=== PATIENT | male | born 1945 | race Caucasian/White ===

== ENCOUNTER → 2017-12-28 09:56 | Outpatient (CLI) | payer MEDICARE, SELFPAY ==
--- NOTE | 2017-12-28 09:56 | DT_ITS ---
This patient was seen during an EMR downtime December 26, 2017 - January 02, 2018. This patient may have a combination of paper and electronic documentation or all paper documentation. All documentation is viewable within the e-chart portion of [facility] for each patient visit.
[2018-01-02 12:35] LABS: AST(SGOT) 25 U/L (15-37); Alanine Aminotransfer ALT/SGPT 30 U/L (16-61); Albumin, Serum 3.6 g/dL (3.2-5.0); Alkaline Phosphatase 53 U/L (45-117); Globulin 4.2 g/dL (2.2-4.2); Protein, Total 7.8 g/dL (6.4-8.2)
[2018-01-02 12:36] LABS: Bilirubin, Direct 0.27 mg/dL (0.00-0.30); Cholesterol 150 mg/dL (200); High Density Lipoprotein 51 mg/dL; Triglycerides 48 mg/dL; Very Low Density Lipoprotein 10 mg/dL (5-40)
== END ==
PROVIDERS: Family Provider Internal Medicine; PCP Internal Medicine; Visit Provider Internal Medicine Cardiovascular Disease
DX: E78.5 Hyperlipidemia, unspecified (principal); Z79.899 Other long term (current) drug therapy
CPT/HCPCS: 80061; 80076

== ENCOUNTER → 2018-03-01 14:56 | Outpatient (CLI) | payer MEDICARE, SELFPAY ==
--- NOTE | 2018-03-01 14:58 | ECHOD_ITS ---
Reason For Study: Afib-Flutter Procedure This was a 2D Doppler, Color Flow transthoracic echocardiogram. Exam performed in department. Left Ventricle Mild concentric left ventricular hypertrophy. The estimated ejection fraction is 65 %. Stage 2 diastolic dysfunction. No regional wall motion abnormalities noted. Right Ventricle Normal size and thickness. Normal systolic function. Atria Normal left atrium. Normal right atrium. Normal atrial septum. Mitral Valve The mitral valve is structurally normal. No prolapse or stenosis seen. Tricuspid Valve Normal tricuspid valve. Trivial tricuspid valve insufficiency. Right ventricular systolic pressure estimated to be 36 mmHg. Aortic Valve Trisinus/trileaflet aortic valve. Mild diffuse aortic valve thickening. Trivial aortic valve insufficiency. Pulmonic Valve Normal pulmonic valve. Great Vessels Normal aortic root. Mild atherosclerosis of the aortic arch. Normal inferior vena cava. Inferior vena cava collapse with sniff. Pericardium/Pleural No pericardial effusion. MMode/2D Measurements & Calculations LVIDd: 4.9 cm IVSd: 1.4 cm Ao root diam: 4.6 cm LVIDs: 3.2 cm LVPWd: 1.4 cm LA dimension: 4.5 cm FS: 34.1 % LAV(MOD-sp4): 44.8 ml LVAd ap4: 43.5 cm2 SV(MOD-sp4): 95.1 ml EDV(MOD-sp4): 172.8 ml EDV(sp4-el): 175.4 ml LVAs ap4: 25.6 cm2 ESV(MOD-sp4): 77.6 ml ESV(sp4-el): 78.2 ml EF(MOD-sp4): 55.1 % EF(sp4-el): 55.4 % SV(sp4-el): 97.2 ml LA A4 area: 18.8 cm2 RA A4 area: 20.0 cm2 Time Measurements MV dec time: 0.23 sec Doppler Measurements & Calculations MV E max hong: 90.1 cm/sec Lat Peak E' Hong: 10.4 cm/sec Med Peak E' Hong: 8.8 cm/sec MV A max hong: 74.2 cm/sec E/E' lat: 8.7 E/E' med: 10.2 MV E/A: 1.2 MV V2 max: 104.0 cm/sec MV P1/2t max hong: 103.0 cm/sec Ao V2 max: 152.2 cm/sec MV max P.3 mmHg MV P1/2t: 136.3 msec Ao max P.3 mmHg MV V2 mean: 52.3 cm/sec MV dec slope: 221.5 cm/sec2 Ao V2 mean: 90.6 cm/sec MV mean P.3 mmHg MVA(P1/2t): 1.6 cm2 Ao mean P.1 mmHg MV V2 VTI: 43.9 cm Ao V2 VTI: 30.8 cm LV V1 max: 123.9 cm/sec PA V2 max: 99.2 cm/sec TR max hong: 277.8 cm/sec LV V1 max P.1 mmHg TR max P.9 mmHg LV V1 mean P.9 mmHg LV V1 mean: 78.6 cm/sec LV V1 VTI: 27.8 cm Interpretation Summary Mild concentric left ventricular hypertrophy. The estimated ejection fraction is 65 %. Stage 2 diastolic dysfunction. Right ventricular systolic pressure estimated to be 36 mmHg. Trivial aortic valve insufficiency. Compared to echo report dated 07/28/2015, no appreciable changes noted. Aortic root is about the same at 4.6 cm. Pt appears to be in NSR. Ordering Physician: Matt Cates Referring Physician: Matt Cates Performed By: Brayden Holcomb RCS
== END ==
PROVIDERS: Family Provider Internal Medicine; PCP Internal Medicine; Visit Provider Internal Medicine Cardiovascular Disease
DX: Z98.890 Other specified postprocedural states (principal)
CPT/HCPCS: 93306

== ENCOUNTER → 2018-03-02 09:21 | Outpatient (CLI) | payer MEDICARE, SELFPAY ==
--- NOTE | 2018-03-02 09:23 | STE_ITS ---
Reason For Study: Atrial fib/flutter Stress Results Protocol: Modified Kael Stress Echo Maximum Predicted HR: 150 bpm Target HR: 128 bpm% Maximum Predict ed HR: 86 % DurationHeart Rate Stage (mm:ss) (bpm) BPCom ment BASELINE 55 152/90 DILUTED DEFINITY 4 ML USED DURING STRESS MODBRUCE- STAGE 1 3:00 11 0 148/86 MODBRUCE- STAGE 2 3:00 12 0 150/88 MODBRUCE- STAGE 3 1:00 12 9 168/98 RECOVERY 78 140/92 Stress Duration: 7:00 mm:ss Maximum Stress HR: 129 bpm Baseline Echocardiogram Findings The estimated ejection fraction is 65 %. Stress Echo Wall motion Data Resting WMIntermediate WMStress WM Resting Wall Motion Wall Motion Stress No regional wall motion No regional wall motion abnormalities noted. abnormalities noted. EKG Data Normal intervals are noted. At peak exercise, upsloping ST changes only were noted, which did not meet the criteria for ischemia. No clinical angina was noted. Interpretation Summary The estimated ejection fraction is 65 %. Normal, adequate, treadmill echocardiogram. Negative for ischemia by echocardiographic criteria. Pt did have diffuse inferior/lateral ST depression during exercise which resolved into recovery. This was seen previously on stress echo in 2017. No anginal symptoms noted. No arrhythmias noted. Appropriate blood pressure response to exercise. Below average exercise capacity for age. Final LVEF is 75%. Test terminated due to dyspnea and knee pain. No complications. Ordering Physician: Matt Cates Referring Physician: Matt Cates Performed By: Brayden Holcomb RCS
== END ==
PROVIDERS: Family Provider Internal Medicine; PCP Internal Medicine; Visit Provider Internal Medicine Cardiovascular Disease
DX: I48.0 Paroxysmal atrial fibrillation (principal); I25.10 Atherosclerotic heart disease of native coronary artery without angina pectoris; E78.5 Hyperlipidemia, unspecified
CPT/HCPCS: 93017; 93350; Q9957; A4216; C8928

== ENCOUNTER 2018-07-17 10:30 | Outpatient (RCR) | payer MEDICARE, SELFPAY ==
--- NOTE | 2018-06-26 10:58 | HP.PTEVAL_ITS ---
Patient's Visit Information DIMITRIS OCHOA is a 73 year old M referred to Physical Therapy by SHIREEN FUENTES with a diagnosis of Left TKR. Date of Evaluation: 06/26/18 Physical Therapist: Jo Parsons - Visit Plan Frequency: 2x /Week Duration: 4 Weeks Plan: Focus on functional mobility - Subjective Findings: Total Knee Replacement [address] Chew in [place]. Single story home- 3 stairs with a grab bar on them. Had home health therapy and they finished and sent him to outpatient. Pain at the worst: 4-5/10 Agg: weather, squats, night. Eases: ice pack, movement. Best: 08/03. Pain is located around the whole knee joint across the middle of the joint. Achy pain most of the time with sharp pains sometimes. Sleep: wakes him up if he rolls over. Fully I before surgery. Wants to get back to playing golf and being outside gardening. Needs to have the other one done as well- bone on bone. No plan yet. Has not had x-rays since surgery- goes back Jul 04, 2018- Glued together- no maxine- no dressing- No opening of the incision. Not really using and AD at home- This is really the first or second time he has been out. PMhx: HTN, A- fib, Cataract Surgery, thyroid, 5 years ago DVT. Meds: synthroid, warfarin, metroprolol, zetia, asprin - Objective Posture: FH, RS, increased kyphosis. Gait: slightly antalgic- decreased stance on the left with poor heel/toe pattern. Stairs: asc/desc 8 recip with 1 HR and straight cane with decreased control. HR/TR: able with UE A and reports hard to do. SLS: unable without UE A. Palpation: mild tenderness along medial and lateral joint line. ROM: 5-115 degrees. Observation: incision healing well no s/s of infection- mild raised scar. Strength: anle: 5/5, Knee: 4+/5, Hip: 4+/5 Core: fair - Goals Goal 1:: Patient will be I with HEP and progression Goal Time Frame: 4-6 Weeks Goal 2:: Patient will asc/desc 8 stairs recip with no HR Goal Time Frame: 4-6 Weeks Goal 3:: Patient will ambulate >300 feet with a normalized gait pattern no AD Goal Time Frame: 4-6 Weeks Goal 4:: Patient will report ability to perform all ADL's. Goal Time Frame: 4-6 Weeks - Rehabilitation Potential Physical Therapy Diagnosis: Patient presents with hypomobility- she has decreased ROM, strength and muscular endurance s/p left TKR leading to abnormal gait and increased pain with ADL's. Rehabilitation Potential: Good - Anticipated Interventions Patient/Client Instruction: Educate patient on: Benefits of Fitness Program Therapeutic Exercise to Include: Strength training, Endurance training, Balance training, Agility training, Body mechanics, Postural training, Flexibilty training, Gait and locomotor training, Passive ROM, Active ROM, Dynamic Lumbar Stabilization For the Purpose of:: To improve muscle performance and motor function TENS: Yes Cryotherapy (ice pack, ice massage): Yes Thermo therapy (hot pack): Yes Ultrasound (thermal/non thermal): No Thank you for the opportunity to evaluate your patient. For Medicare and Medicare HMO plans, please review the plan of care and approve it. It will need to be FAXED BACK to us at [phone] for Medicare purposes. For Medicare only, by signing this I certify the plan of care. Please let me know if there are questions or concerns regarding this plan of car e. Physician Signature: Date:
--- NOTE | 2018-07-17 11:00 | HP.PTDCSUM ---
HP - PT D/C Summary It has been my pleasure to treat DIMITRIS OCHOA under orders from SHIREEN FUENTES, for the diagnosis of Left TKR for a total of 7 visit(s). Discharge Date: Please see the following information for a summary of their discharge status. - Subjective Subjective: Patient reports that he is doing great- he feels like he is ready to be I - Overall Improvement % Improvement: 100 - Objective Objective/Function: Posture: FH, RS, increased kyphosis. Gait: no deviation Stairs: asc/desc 8 recip with 1 HR. HR/TR: able with UE A. SLS: unable without UE A. Palpation:not tender ROM: 0-115 degrees. Observation: incision healing well no s/s of infection- mild raised scar. Strength: anle: 5/5, Knee: 5/5, Hip: 5/5 Core: fair - Goals Goal 1:: Patient will be I with HEP and progression Goal Progress: Goal Met Goal 2:: Patient will asc/desc 8 stairs recip with no HR Goal Progress: Goal Met Goal 3:: Patient will ambulate >300 feet with a normalized gait pattern no AD Goal Progress: Goal Met Goal 4:: Patient will report ability to perform all ADL's. Goal Progress: Goal Met - Plan Plan: Discharge to I HEP - D/C Information If there are questions or concerns regarding this patient's physical therapy, please feel free to call me at [phone]. Thank you for the referral of this patient. Sincerely, oJ Parsons DPT
--- OUTSIDE RECORDS SUMMARY | 2018-08-19 14:19 | XMS RPT_ITS ---
:1945 Author Organization OHIP Care Team Providers Name Role Phone WILNER CHEW Referring Unavailable WILNER CHEW Admitting Unavailable WILNER CHEW Attending Unavailable RONNIE ISRAEL Consulting Unavailable FARTUN FITZPATRICK Referring Unavailable FARTUN FITZPATRICK Attending Unavailable MIKE PEREZ JR Attending Unavailable MIKE PEREZ JR Referring Unavailable WILNER CHEW Attending Unavailable ANABEL SOLIZ (TOLL TEST WORKER) Attending Unavailable TRESA FITZPATRICKA [place] Referring Unavailable WILNER CHEW Attending Unavailable NANETTE FARTUN [place] Referring Unavailable WILNER CHEW Referring Unavailable WILNER CHEW Referring Unavailable ANABEL SOLIZ (TOLL TEST WORKER) Attending Unavailable TALAMPAS, FARTUN D Referring Unavailable AMOR BUSTOS (LIZZY) Attending Unavailable CHEW, WILNER A Referring Unavailable Matt Cates Attending Unavailable Talampas, Fartun Referring Unavailable Talampas, Fartun Primary Care Unavailable Matt Cates Attending Unavailable Ugo, Matt Referring Unavailable Talampas, Fartun Primary Care Unavailable Matt Cates Attending Unavailable Talampas, Fartun Referring Unavailable Talampas, Fartun Primary Care Unavailable Matt Cates Attending Unavailable Matt Cates Referring Unavailable Talampas, Fartun Primary Care Unavailable Matt Cates Attending Unavailable Ugo, Matt Referring Unavailable Talampas, Fartun Primary Care Unavailable Matt Cates Attending Unavailable Matt Cates Referring Unavailable Matt Cates Attending Unavailable Matt Cates Referring Unavailable DORI VAUGHN Attending Unavailable DORI VAUGHN Referring Unavailable Talampas, Fartun Primary Care Unavailable DORI VAUGHN Consulting Unavailable PROBLEMS PROBLEMS DATE TYPE CONDITION / CODE ATTENDING STATUS SOURCE 06/03/2018 Active Unilateral primary CHEW, Active [place] osteoarthritis, right [facility] Other knee / M17.11(ICD-10) [facility] 06/02/2018 Active Unilateral primary CHEW, Active [place] osteoarthritis, left [facility] Other knee / M17.12(ICD-10) [facility] 05/22/2018 Active Anemia, unspecified / NA Active [facility] D64.9(ICD-10) [facility] Main [facility] 05/22/2018 Active Encounter for other NA Active [facility] preprocedural Clinic Main examination / [facility] Z01.818(ICD-10) Repository 02/21/2018 Unknown E78.5 - Matt Cates Active [facility] Hyperlipidemia, [facility] unspecified / Hospital E78.5(ICD-10) Repository 02/21/2018 Unknown Z98.890 - Other Matt Cates Active [facility] specified Community postprocedural states Hospital / Z98.890(ICD-10) Repository 02/21/2018 Unknown I25.10 - Matt Cates Active [facility] Atherosclerotic heart Community disease of [facility] coronary artery Repository without angina pectoris / I25.10(ICD-10) 02/21/2018 Unknown I48.0 - Paroxysmal Matt Cates Active [facility] atrial fibrillation / Community I48.0(ICD-10) Hospital Repository 01/05/2018 Active Pain in right knee / NA Active [facility] M25.561(ICD-10) Clinic Other [facility] 01/05/2018 Active Pain in left knee / NA Active [facility] M25.562(ICD-10) Clinic Other [facility] 11/15/2017 Active Encounter for NA Active [facility] screening for other Clinic Main disorder / [facility] Z13.89(ICD-10) Repository 08/08/2017 Unknown I10 - Essential Matt Cates Active [facility] (primary) hypertension Community / I10(ICD-10) Hospital Repository 08/08/2017 Unknown I47.1 - Matt Cates Active [facility] Supraventricular Community tachycardia / Hospital I47.1(ICD-10) Repository 08/08/2017 Unknown Z86.711 - Personal Matt Cates Active [facility] history of pulmonary Community embolism / Hospital Z86.711(ICD-10) Repository 08/08/2017 Unknown I71.2 - Thoracic Matt Cates Active [facility] aortic aneurysm, Community without rupture / Hospital I71.2(ICD-10) Repository 08/01/2017 Active Unknown / UNK(Unknown) FARTUN FITZPATRICK Active [facility] Main [facility] 11/05/2015 Active Essential (primary) NA Active [facility] hypertension / Clinic Main I10(ICD-10) [facility] 07/27/2017 Active Other care home NA [facility]ly [facility] (current) drug therapy Clinic Main / Z79.899(ICD-10) [facility] 07/27/2017 Active Hypothyroidism, NA Active [facility] [facility] unspecified / Clinic Main E03.9(ICD-10) [facility] PROCEDURES PROCEDURES No Procedure Records FoundRESULTS RESULTS PROGRESS Observed: 07/04/2018 Status: COMPLETED Source: [facility] 9:38 AM CLINIC OTHER CAMPUS REPOSITORY HNO ID: [id number] Author: BECKY Villagomez (Ct) Service: (none) Author Type: Clinical Deputy City Clerk Type: Progress Notes Filed: 07/04/2018 9:38 AM Note Text: NAME:Dimitris Ochoa DATE: July 04, 2018 CCF#: [id number] Lower Extremity X-Ray(s): Knee, AP / Lat / Merchant Left and Wt. Bearing COMPLETED TECH ID SIGN: ALEJANDRA FREITAS PROGRESS Observed: 07/04/2018 Status: COMPLETED Source: [facility] 9:33 AM CLINIC MAIN CAMPUS REPOSITORY HNO ID: [id number] Author: Amor Bustos (Pa) Service: (none) Author Type: Physician Ciso Type: Progress Notes Filed: 07/04/2018 10:01 AM Note Text: Ortho Knee Follow Up Note Narrative Referring Provider: Wilner Chew MD [address] [address] PCP: Fartun Fitzpatrick MD IMPRESSION/PLAN: 73 year old male s/p Left Total Knee Replacement completed on 06/02/18. IMPRESSION: No complaints or limitations Severe OA right knee PLAN: Continue current conservative treatment. Rest, Ice, Compression, Elevation PRN. Next appointment with Dr. Chew to help set up right TKA Patient Reassurance: Normal post-operative course discussed with patient. Progress appears to be with the normal speed of recovery. Patient reassured and supported. All questions answered. 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 Obesity) (Hcc) Mixed Hyperlipidemia Unspecified Gastritis and Gastroduodenitis Without Mention of Hemorrhage Osteoarthrosis, Unspecified Whether Generalized Or Localized, Other Specified Sites Essential Hypertension Bladder Neck Obstruction H/O: Hematuria Hypothyroidism Umbilical Hernia Without Mention of Obstruction Or Gangrene Paroxysmal Supraventricular Tachycardia (Hcc) 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 Post-operative recovery was complicated by Right knee pain. Patient rates his condition as improving. Does the patient still experience pain? Onset: evening. Location: Bilateral knees. Frequency: intermittently. Pain scale: 3. Pain character: ache. Relieving factors: Rest and Ice. Aggravating factors: Increased activity Post Op discharge patient location: in home. Functional Assessment is as follows: completed home PT and has already started outpatient PT as of this visit. Functional difficulties: Interferes with sleep. Pain Medication: Non-narcotic and None Currently Ambulating with: no ambulation aides EXAM: POST OP KNEE Left Post-Operative Knee Ambulates with a: limp favoring the right. SKIN: Appropriate postop appearance, No evidence of erythema, warmth, discharge or drainage and Incision clean/dry/intact. Range of motion is 5 degrees in extension and 100 degrees of flexion. Extension Lag: < 10 degrees Pain with ROM:No There is Mild effusion. Mal-alignment: No Tender to the palpation of Medial femoral condyle Neurovascular Status: Sensation Intact, Moves foot and ankle up AND down, Moves toes up and down, 2+ dorsalis pedis and negative homans sign Stability:Anterior/Posterior- Yes, stable and Varus/Valgus- Yes, stable Quad strength: improving Imagin. Implants are well aligned. Implants are well fixed. There is no evidence of loosening. Patella is well positioned. Provider: Amor Bustos PA-C Completed by: Amor Bustos PA-C CNOV Observed: 07/04/2018 Status: COMPLETED Source: [facility] 9:30 AM [facility] REPOSITORY Office Visit (ORMDNA) DIMITRIS OCHOA ([id number]) 1945 M Date Time Provider Department 07/04/18 9:30 AM AMOR BUSTOS) TAZ During your visit today, we recorded the following information about you: Anayeli PENA 07/04/2018 9:29 AM Signed Patient presents with: Surgical Followup: left tka Amor Bustos PA-C 07/04/2018 10:01 AM Signed Ortho Knee Follow Up Note Narrative Referring Provider: Wilner Chew MD [address] [id number] PCP: Fartun Fitzpatrick MD IMPRESSION/PLAN: 73 year old male s/p Left Total Knee Replacement completed on 06/02/18. IMPRESSION: No complaints or limitations Severe OA right knee PLAN: Continue current conservative treatment. Rest, Ice, Compression, Elevation PRN. Next appointment with Dr. Chew to help set up right TKA Patient Reassurance: Normal post-operative course discussed with patient. Progress appears to be with the normal speed of recovery. Patient reassured and supported. All questions answered. 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 and Other Lower Urinary Tract Symptoms (Luts) Atrial Fibrillation (Hcc) Obesity, Class Iii, Bmi 40-49.9 (Morbid Obesity) (Hcc) Mixed Hyperlipidemia Unspecified Gastritis and Gastroduodenitis Without Mention of Hemorrhage Osteoarthrosis, Unspecified Whether Generalized Or Localized, Other Specified Sites Essential Hypertension Bladder Neck Obstruction H/O: Hematuria Hypothyroidism Umbilical Hernia Without Mention of Obstruction Or Gangrene Paroxysmal Supraventricular Tachycardia (Hcc) 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 Post-operative recovery was complicated by Right knee pain. Patient rates his condition as improving. Does the patient still experience pain? Onset: evening. Location: Bilateral knees. Frequency: intermittently. Pain scale: 3. Pain character: ache. Relieving factors: Rest and Ice. Aggravating factors: Increased activity Post Op discharge patient location: in home. Functional Assessment is as follows: completed home PT and has already started outpatient PT as of this visit. Functional difficulties: Interferes with sleep. Pain Medication: Non-narcotic and None Currently Ambulating with: no ambulation aides EXAM: POST OP KNEE Left Post-Operative Knee Ambulates with a: limp favoring the right. SKIN: Appropriate postop appearance, No evidence of erythema, warmth, discharge or drainage and Incision clean/dry/intact. Range of motion is 5 degrees in extension and 100 degrees of flexion. Extension Lag: < 10 degrees Pain with ROM:No There is Mild effusion. Mal-alignment: No Tender to the palpation of Medial femoral condyle Neurovascular Status: Sensation Intact, Moves foot and ankle up AND down, Moves toes up and down, 2+ dorsalis pedis and negative homans sign Stability:Anterior/Posterior- Yes, stable and Varus/Valgus- Yes, stable Quad strength: improving Imagin. Implants are well aligned. Implants are well fixed. There is no evidence of loosening. Patella is well positioned. Provider: Amor Bustos PA-C Completed by: Amor Bustos PA-C Referring Provider: WILNER CHEW [[id number]] Allergies As of Date: 07/04/2018 Noted Allergy Reaction LEVAQUIN (LEVOFLOXACIN) 08/24/2013 14 - Other: See Comments Comments: Reports nightmares LIPITOR (ATORVASTATIN) 11/05/2015 17 - Myalgia Comments: stopped by Dr. Cates LOVASTATIN 02/18/2014 14 - Other: See Comments Comments: muscle aches PRAVASTATIN 02/18/2014 14 - Other: See Comments Comments: muscle aches SIMVASTATIN 02/18/2014 14 - Other: See Comments Comments: muscle aches [id number] REDUCTASE INHIBIT*11/05/2015 17 - Myalgia Comments: tried them all CEFTIN (CEFUROXIME) 02/22/2011 6 - Diarrhea Date Reviewed: 07/04/2018 Reviewed by: Amor Bustos (Pa) - Fully Assessed Reason for Visit: Surgical Followup [104] Cmt: left tka Primary Visit Diagnosis:Status post total left knee replacement [Z96.652] Other Visit Diagnosis:Primary osteoarthritis of right knee [M17.11] Prescriptions as of 07/04/2018 Sig: * ADULT ASPIRIN EC LOW STRENGTH* Take one(1) tablet daily. EZETIMIBE 10 MG TABLET Take 1 tablet by mouth once d* HYDROCHLOROTHIAZIDE 25 MG TAB* TAKE ONE-HALF (1/2) TABLET DA* * XALATAN 0.005 % EYE DROPS Take as directed LEVOTHYROXINE 88 MCG TABLET TAKE 1 TABLET ONCE DAILY (ADD* METOPROLOL SUCCINATE ER 25 MG* Take 1 tablet by mouth once d* MOEXIPRIL 15 MG TABLET Take 15 mg by mouth once randall* * KLOR-CON 10 MEQ TABLET,EXTEND* Take one(1) tablet daily. * TAMBOCOR 100 MG TABLET take one (1) tablet twice a d* WARFARIN 5 MG TABLET TAKE 1 TABLET ON TUESDAY AND* HYDROCODONE 5 MG-ACETAMINOPHE* Take 1-2 tablets by mouth alo* More... More... Problem List As Of Date 07/04/2018 Noted Resolved UNCERTAIN BEHAV NEOPL NERV SYS NEC [D43.9] INVALID FOR* More... BPH W URINARY OBS/LUTS [N40.1] INVALID FOR* Atrial Fibrillation [I48.91] INVALID FOR* More... Obesity, Class III, BMI 40-49.9 (morbid obesity*INVALID FOR* Mixed hyperlipidemia [E78.2] INVALID FOR* More... GASTRITIS/DUODEN NOS W/O HEMORRH [K29.70, K29.9*INVALID FOR* More... Routine general medical examination at a health*INVALID FOR*11/11/2014 More... OSTEOARTHROS NOS-OTHER SITE [M19.90] INVALID FOR* Essential hypertension [I10] INVALID FOR* More... Bladder Neck Obstruction [N32.0] INVALID FOR* H/O: Hematuria [Z87.448] INVALID FOR* Hypothyroidism [E03.9] INVALID FOR* Umbilical hernia without mention of obstruction*INVALID FOR* Paroxysmal supraventricular tachycardia [I47.1] INVALID FOR* More... Atherosclerosis of coronary artery of chicken ranch he*INVALID FOR* More... Other pulmonary embolism and infarction [I26.99]INVALID FOR* More... Heel spur [M77.30] INVALID FOR* Hypercholesterolemia [E78.00] INVALID FOR* Imaging abnormality [R93.89] INVALID FOR* Anticoagulated on Coumadin [Z51.81, Z79.01] INVALID FOR* Primary osteoarthritis of left knee [M17.12] INVALID FOR* More... Arthritis of knee [M17.10] INVALID FOR* Obesity, Class II, BMI 35-39.9 [E66.9] INVALID FOR* Visit Notes: >> Anayeli Landaverde CT Tue Jul 04, 2018 9:27 AM Status: Signed Patient presents with: Surgical Followup: left tka Encounter Status:Closed by AMOR BUSTOS PA-C on 07/04/18 XR KNEE 3V AP/LAT/MERCHANT Observed: 07/04/2018 Status: F Source: [facility] 9:10 AM CLINIC OTHER CAMPUS REPOSITORY * * *Final Report* * * DATE OF EXAM: Jul 04 2018 9:10AM [facility] [id number] - XR KNEE 3V AP/LAT/MERCHANT LT / PROCEDURE REASON: M25.562-Left knee pain, unspecified chronicity * * * * Physician Interpretation * * * * EXAMINATION: XR KNEE 3V AP/LAT/MERCHANT LT CLINICAL HISTORY: 1ST P O TKR Left knee pain, unspecified chronicity Technique: XR KNEE 3V AP/LAT/MERCHANT LT -- LEFT knee with 3 views on 3 images Comparison: 01/05/2018 RESULT: Patient is status post left total knee arthroplasty with patellar resurfacing. The orthopedic hardware is intact without radiographic evidence of loosening. No acute fracture. No large left knee joint effusion. There is an enthesophyte at the quadriceps tendon insertion on the patella. Degenerative changes are present in the medial lateral compartments of the right knee, more pronounced laterally. IMPRESSION: Status post left total knee arthroplasty. Cyber Security Engineer: PSCB Transcribe Date/Time: Jul 04 2018 12:48P Dictated by : DANYELLE GUARDADO MD This examination was interpreted and the report reviewed and electronically signed by: DANYELLE GUARDADO MD on Jul 04 2018 12:50PM EST [id number] INITAL EVALUATION (1) Observed: 06/26/2018 Status: F Source: [place] - PT 10:58 AM [facility] REPOSITORY [facility] [address] [place] [address]. [address] [place] [address] Fax REHABILITATION SERVICES INITIAL EVALUATION MR#: [id number] Acct: [id number] Name: DIMITRIS OCHOA Rep #: [id number] : 1945 73 From: Jo Parsons DPT Referring DrWolf: Status: REG RCR Insurance: [facility] SELF PAY INSURANCE Patient's Visit Information DIMITRIS OCHOA is a 73 year old M referred to Physical Therapy by JULIO FUENTES with a diagnosis of Left TKR. Date of Evaluation: 06/26/18 Physical Therapist: Jo Parsons - Visit Plan Frequency: 2x /Week Duration: 4 Weeks Plan: Focus on functional mobility - Subjective Findings: Total Knee Replacement [address] Chew in [place]- Left. Single story home- 3 stairs with a grab bar on them. Had home health therapy and they finished and sent him to outpatient. Pain at the worst: 4-5/10 Agg: weather, squats, night. Eases: ice pack, movement. Best: 1/10. Pain is located around the whole knee joint across the middle of the joint. Achy pain most of the time with sharp pains sometimes. Sleep: wakes him up if he rolls over. Fully I before surgery. Wants to get back to playing golf and being outside gardening. Needs to have the other one done as well- bone on bone. No plan yet. Has not had x-rays since surgery- goes back Jul 04, 2018- Glued together- no maxine- no dressing- No opening of the incision. Not really using and AD at home- This is really the first or second time he has been out. PMhx: HTN, A-fib, Cataract Surgery, thyroid, 5 years ago DVT. Meds: synthroid, warfarin, metroprolol, zetia, asprin - Objective Posture: FH, RS, increased kyphosis. Gait: slightly antalgic- decreased stance on the left with poor heel/toe pattern. Stairs: asc/desc 8 recip with 1 HR and straight cane with decreased control. HR/TR: able with UE A and reports hard to do. SLS: unable without UE A. Palpation: mild tenderness along medial and lateral joint line. ROM: 5-115 degrees. Observation: incision healing well no s/s of infection- mild raised scar. Strength: anle: 5/5, Knee: 4+/5, Hip: 4+/5 Core: fair - Goals Goal 1:: Patient will be I with HEP and progression Goal Time Frame: 4-6 Weeks Goal 2:: Patient will asc/desc 8 stairs recip with no HR Goal Time Frame: 4-6 Weeks Goal 3:: Patient will ambulate >300 feet with a normalized gait pattern no AD Goal Time Frame: 4-6 Weeks Goal 4:: Patient will report ability to perform all ADL's. Goal Time Frame: 4-6 Weeks - Rehabilitation Potential Physical Therapy Diagnosis: Patient presents with hypomobility- she has decreased ROM, strength and muscular endurance s/p left TKR leading to abnormal gait and increased pain with ADL's. Rehabilitation Potential: Good - Anticipated Interventions Patient/Client Instruction: Educate patient on: Benefits of Fitness Program Therapeutic Exercise to Include: Strength training, Endurance training, Balance training, Agility training, Body mechanics, Postural training, Flexibilty training, Gait and locomotor training, Passive ROM, Active ROM, Dynamic Lumbar Stabilization For the Purpose of:: To improve muscle performance and motor function TENS: Yes Cryotherapy (ice pack, ice massage): Yes Thermo therapy (hot pack): Yes Ultrasound (thermal/non thermal): No Thank you for the opportunity to evaluate your patient. For Medicare and Medicare HMO plans, please review the plan of care and approve it. It will need to be FAXED BACK to us at [phone] for Medicare purposes. For Medicare only, by signing this I certify the plan of care. Please let me know if there are questions or concerns regarding this plan of care. Physician Signature: Date: <Electronically signed by Jo Parsons DPT> 06/26/18 1058 CC: Fartun Fitzpatrick MD; JULIO FUENTES ELR Signed OBSOLETE Observed: 06/20/2018 Status: COMPLETED Source: [facility] 12:00 AM CLINIC OTHER CAMPUS REPOSITORY Refill (ME2E) GABRIELADIMITRIS Marcial ([id number]) 1945 M Date Time Provider Department 06/20/18 WILNER CHEW ME2E During your visit today, we recorded the following information about you: Hayes Mars, PSA 06/20/2018 3:02 PM Signed Alvarez is requesting refill of [place]. Is trying to take 2 tab every 5 hours, occasionally taking 2 every 4 if needed. Did try to start taking 1 tab at a time but is afraid with starting outpt PT next week he will stilll need the 2 every 4-5 hours. Plans to case picker Tuesday in our outpt pharmacy any time after 10am. Julio Fuentes APRN.EMERGENCY NURSE 06/20/2018 3:53 PM Signed OAR[facility] reviewed. Patient is taking medication appropriately, will refill rx. Julio Fuentes APRN.EMERGENCY NURSE June 20, 2018 3:53 PM Allergies As of Date: 06/20/2018 Noted Allergy Reaction LEVAQUIN (LEVOFLOXACIN) 08/24/2013 14 - Other: See Comments Comments: Reports nightmares LIPITOR (ATORVASTATIN) 11/05/2015 17 - Myalgia Comments: stopped by Dr. Cates LOVASTATIN 02/18/2014 14 - Other: See Comments Comments: muscle aches PRAVASTATIN 02/18/2014 14 - Other: See Comments Comments: muscle aches SIMVASTATIN 02/18/2014 14 - Other: See Comments Comments: muscle aches [id number] REDUCTASE INHIBIT*11/05/2015 17 - Myalgia Comments: tried them all CEFTIN (CEFUROXIME) 02/22/2011 6 - Diarrhea Date Reviewed: 06/09/2018 Reviewed by: Deidre Leone LPN - Fully Assessed Reason for Visit: Refill Request [94] Visit Diagnosis:Status post left knee replacement [Z96.652] Order(s):Order #: [id number] Prescriptions as of 06/20/2018 Sig: HYDROCODONE 5 MG-ACETAMINOPHE* Take 1-2 tablets by mouth alo* LEVOTHYROXINE 88 MCG TABLET TAKE 1 TABLET ONCE DAILY (ADD* WARFARIN 5 MG TABLET TAKE 1 TABLET ON TUESDAY AND* MOEXIPRIL 15 MG TABLET Take 15 mg by mouth once randall* HYDROCHLOROTHIAZIDE 25 MG TAB* TAKE ONE-HALF (1/2) TABLET DA* METOPROLOL SUCCINATE ER 25 MG* Take 1 tablet by mouth once d* EZETIMIBE 10 MG TABLET Take 1 tablet by mouth once d* * XALATAN 0.005 % EYE DROPS Take as directed * KLOR-CON 10 MEQ TABLET,EXTEND* Take one(1) tablet daily. * ADULT ASPIRIN EC LOW STRENGTH* Take one(1) tablet daily. * TAMBOCOR 100 MG TABLET take one (1) tablet twice a d* More... More... Problem List As Of Date 06/20/2018 Noted Resolved UNCERTAIN BEHAV NEOPL NERV SYS NEC [D43.9] INVALID FOR* More... BPH W URINARY OBS/LUTS [N40.1] INVALID FOR* Atrial Fibrillation [I48.91] INVALID FOR* More... Obesity, Class III, BMI 40-49.9 (morbid obesity*INVALID FOR* Mixed hyperlipidemia [E78.2] INVALID FOR* More... GASTRITIS/DUODEN NOS W/O HEMORRH [K29.70, K29.9*INVALID FOR* More... Routine general medical examination at a health*INVALID FOR*11/11/2014 More... OSTEOARTHROS NOS-OTHER SITE [M19.90] INVALID FOR* Essential hypertension [I10] INVALID FOR* More... Bladder Neck Obstruction [N32.0] INVALID FOR* H/O: Hematuria [Z87.448] INVALID FOR* Hypothyroidism [E03.9] INVALID FOR* Umbilical hernia without mention of obstruction*INVALID FOR* Paroxysmal supraventricular tachycardia [I47.1] INVALID FOR* More... Atherosclerosis of coronary artery of chicken ranch he*INVALID FOR* More... Other pulmonary embolism and infarction [I26.99]INVALID FOR* More... Heel spur [M77.30] INVALID FOR* Hypercholesterolemia [E78.00] INVALID FOR* Imaging abnormality [R93.89] INVALID FOR* Anticoagulated on Coumadin [Z51.81, Z79.01] INVALID FOR* Primary osteoarthritis of left knee [M17.12] INVALID FOR* More... Arthritis of knee [M17.10] INVALID FOR* Obesity, Class II, BMI 35-39.9 [E66.9] INVALID FOR* Prescriptions ordered this encounter Disp Refills Start End HYDROCODONE 5 MG-ACETAMINOPHEN 325 M* 84 t* 0 06/20/2018 06/27/2018 Class: Print RX Cmt: This patient is status post a major orthopedic procedure that is associated with significant pain and has received a prescription for more than 30 morphine equivalents because of the anticipated pain* Route: ORAL Sig: Take 1-2 tablets by mouth every 4 hours as needed for Pain (post op acute pain) for up to 7 days. Earliest Fill Date: 06/20/18 Medications Discontinued During This Encounter HYDROcodone-acetaminophen (NORCO) 5-* 84 t* 0 06/09/2018 06/20/2018 Class: Print RX Cmt: This patient is status post a major orthopedic procedure that is associated with significant pain and has received a prescription for more than 30 morphine equivalents because of the anticipated pain following this procedure in the immediate postoperative period. Route: ORAL Sig: Take 1-2 tablets by mouth every 4 hours as needed for Pain (post op acute pain) for up to 7 days. Disc: Reason for discontinue is not on file. Encounter Status:Closed by JULIO FUENTES on 06/20/18 CNOV Observed: 06/09/2018 Status: COMPLETED Source: [place] 11:00 AM [facility] REPOSITORY Office Visit (INTMWS) DIMITRIS OCHOA ([id number]) 1945 M Date Time Provider Department 06/09/18 11:00 AM ANABEL SOLIZ) INTMWS During your visit today, we recorded the following information about you: Pulse Respiration Blood pressure Weight 72/minute 16/minute 100/72 144.7 kg Anabel Soliz APRN.CNS 06/09/2018 12:46 PM Signed Transitional Care Management Progress Note The patients TCM visit was performed within the 7 days of discharge. Patient's Date of discharge: 06/03/2018 Date of initial coordinator contact after discharge: Discharge diagnosis: total knee replacement, left Medication review completed Yes Anabel Soliz APRN.TOLL TEST WORKER Provider Documentation: In follow-up of hospitalization, Dimitris Ochoa is a 73 year old male with the chief complaint of s/p total knee replacement. I have reviewed the patient?s last hospital course including diagnostic testing performed during this hospitalization, their discharge medications, and my assessment and plan with the patient and any family members present at today?s visit. HPI: Presents today for follow up left total knee replacement 08/02/[address] Chew at [facility]. Maintained anticoagulation with Lovenox and coumadin. Dressing to be removed day 7-10. Provided with pain medication at discharge. Presents feeling improved. Left knee pain is reduced since discharge home. Swelling of left leg about the same as during hospitalization. Walking with walker. No bleeding or drainage at site. Has had less appetite since surgery, reports drinking fluids sufficiently. No constipation. Alternating one and two norco every for hours as needed for pain with good relief. Taking 5 mg coumadin Thurs and Sun, 5 mg all other days,continues on lovenox today along with coumadin, has not yet checked INR today. Has HHC, RN and PT, dressing to come off later today. has follow up with ortho scheduled. PAST MEDICAL HISTORY: Reviewed and updated ALLERGIES: Reviewed and updated MEDICATIONS: Reviewed and updated SOCIAL HISTORY: Reviewed and updated FAMILY HISTORY: Reviewed and updated REVIEW OF SYSTEMS: Review of Systems: GENERAL: No weight loss, malaise or fevers. GI: Negative for abdominal discomfort, blood in stools or black stools, change in bowel habit, heart burn, nausea, vomiting, constipation MUSCULOSKELETAL: Negative for back pain and muscle pain The remainder of the review of systems is negative. All other systems reviewed and negative, other than HPI. Component Latest Ref Rng AND Units 06/03/2018 06/07/2018 Glucose 74 - 99 mg/dL 134 (H) BUN 9 - 24 mg/dL 21 Creatinine 0.73 - 1.22 mg/dL 1.07 Sodium 136 - 144 mmol/L 137 Potassium 3.7 - 5.1 mmol/L 4.2 Chloride 97 - 105 mmol/L 102 CO2 22 - 30 mmol/L 24 Anion Gap 9 - 18 mmol/L 11 Calcium 8.5 - 10.2 mg/dL 9.0 eGFR- >60 eGFR-All Other Races . >60 WBC 3.70 - 11.00 k/uL 11.66 (H) RBC 4.20 - 6.00 m/uL 4.46 Hemoglobin 13.0 - 17.0 g/dL 13.2 Hematocrit 39.0 - 51.0 % 41.4 MCV 80.0 - 100.0 fL 92.8 MCH 26.0 - 34.0 pG 29.6 MCHC 30.5 - 36.0 g/dL 31.9 RDW-CV 11.5 - 15.0 % 14.6 Platelet Count 150 - 400 k/uL 211 MPV 9.0 - 12.7 fL 12.0 INR Home CoaguChek 2.0 - 3.0 2.0 PHYSICAL EXAMINATION BP 100/72 Pulse 72 Resp 16 Wt 319 lb (144.7kg) General appearance: Well appearing, alert, in no acute distress, well-hydrated, well nourished., well appearing, alert, in no acute distress and well-hydrated, well nourished, motor and sensory appear to be normal Lungs: lungs clear to auscultation. No wheezing, rhonchi, rales clear to auscultation no wheezing or rhonchi Heart: RRR without murmur, gallop, or rubs. No ectopy Abdomen: Abdomen soft, non-tender. Bowel sounds normal. No masses, organomegaly Extremities: Edema: present left leg foot to thigh, Negative findings: Pulses: left 2+, No cyanosis, clubbing or edema 1. I have reviewed the patient record including associated test results during the last hospitalization Yes 2. I have reviewed Lab test Yes 3. I have reviewed Radiology test Yes 4. I reviewed assessment/plan with the patient/family member Yes ASSESSMENT/PLAN: 1. S/P TKR (total knee replacement), left - ICD9: V43.65, ICD10: Z96.652 2. Anticoagulated on Coumadin - ICD9: V58.83, V58.61, ICD10: Z51.81, Z79.01 Continue with coumadin dosing unchanged for now, check INR. If remains therapeutic may discontinue lovenox, he will call in with INR this afternoon for further direction Anabel Soliz APRN.TOLL TEST WORKER June 09, 2018 10:55 AM Referring Provider: FARTUN FITZPATRICK [[id number]] Allergies As of Date: 06/09/2018 Noted Allergy Reaction LEVAQUIN (LEVOFLOXACIN) 08/24/2013 14 - Other: See Comments Comments: Reports nightmares LIPITOR (ATORVASTATIN) 11/05/2015 17 - Myalgia Comments: stopped by Dr. Cates LOVASTATIN 02/18/2014 14 - Other: See Comments Comments: muscle aches PRAVASTATIN 02/18/2014 14 - Other: See Comments Comments: muscle aches SIMVASTATIN 02/18/2014 14 - Other: See Comments Comments: muscle aches AUASMES-GMG-XBY REDUCTASE INHIBIT*11/05/2015 17 - Myalgia Comments: tried them all CEFTIN (CEFUROXIME) 02/22/2011 6 - Diarrhea Date Reviewed: 06/09/2018 Reviewed by: Deidre Leone LPN - Fully Assessed Reason for Visit: Hospital F/U [57] Primary Visit Diagnosis:S/P TKR (total knee replacement), left [Z96.652] Other Visit Diagnosis:Anticoagulated on Coumadin [Z51.81, Z79.01] Prescriptions as of 06/09/2018 Sig: HYDROCODONE 5 MG-ACETAMINOPHE* Take 1-2 tablets by mouth alo* ENOXAPARIN 40 MG/0.4 ML SUBCU* Inject 0.4 mL subcutaneously * LEVOTHYROXINE 88 MCG TABLET TAKE 1 TABLET ONCE DAILY (ADD* WARFARIN 5 MG TABLET TAKE 1 TABLET ON TUESDAY AND* MOEXIPRIL 15 MG TABLET Take 15 mg by mouth once randall* HYDROCHLOROTHIAZIDE 25 MG TAB* TAKE ONE-HALF (1/2) TABLET DA* METOPROLOL SUCCINATE ER 25 MG* Take 1 tablet by mouth once d* EZETIMIBE 10 MG TABLET Take 1 tablet by mouth once d* * XALATAN 0.005 % EYE DROPS Take as directed * KLOR-CON 10 MEQ TABLET,EXTEND* Take one(1) tablet daily. * ADULT ASPIRIN EC LOW STRENGTH* Take one(1) tablet daily. * TAMBOCOR 100 MG TABLET take one (1) tablet twice a d* More... More... 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 BPH W URINARY OBS/LUTS [N40.1] INVALID FOR* Atrial Fibrillation [I48.91] INVALID FOR* More... Obesity, Class III, BMI 40-49.9 (morbid obesity*INVALID FOR* Mixed hyperlipidemia [E78.2] INVALID FOR* More... GASTRITIS/DUODEN NOS W/O HEMORRH [K29.70, K29.9*INVALID FOR* More... Routine general medical examination at a health*INVALID FOR*11/11/2014 More... OSTEOARTHROS NOS-OTHER SITE [M19.90] INVALID FOR* Essential hypertension [I10] INVALID FOR* More... Bladder Neck Obstruction [N32.0] INVALID FOR* H/O: Hematuria [Z87.448] INVALID FOR* Hypothyroidism [E03.9] INVALID FOR* Umbilical hernia without mention of obstruction*INVALID FOR* Paroxysmal supraventricular tachycardia [I47.1] INVALID FOR* More... Atherosclerosis of coronary artery of chicken ranch he*INVALID FOR* More... Other pulmonary embolism and infarction [I26.99]INVALID FOR* More... Heel spur [M77.30] INVALID FOR* Hypercholesterolemia [E78.00] INVALID FOR* Imaging abnormality [R93.89] INVALID FOR* Anticoagulated on Coumadin [Z51.81, Z79.01] INVALID FOR* Primary osteoarthritis of left knee [M17.12] INVALID FOR* More... Arthritis of knee [M17.10] INVALID FOR* Obesity, Class II, BMI 35-39.9 [E66.9] INVALID FOR* Encounter Status:Closed by ANABEL BENAVIDES on 06/09/18 PROGRESS Observed: 06/09/2018 Status: COMPLETED Source: [place] 10:55 AM [facility] REPOSITORY HNO ID: [id number] Author: Anabel Soliz (Cns) Service: (none) Author Type: Nurse Specialist Type: Progress Notes Filed: 06/09/2018 12:46 PM Note Text: Transitional Care Management Progress Note The patients TCM visit was performed within the 7 days of discharge. Patient's Date of discharge: 06/03/2018 Date of initial coordinator contact after discharge: Discharge diagnosis: total knee replacement, left Medication review completed Yes Anabel Soliz APRN.TOLL TEST WORKER Provider Documentation: In follow-up of hospitalization, Dimitris Ochoa is a 73 year old male with the chief complaint of s/p total knee replacement. I have reviewed the patient?s last hospital course including diagnostic testing performed during this hospitalization, their discharge medications, and my assessment and plan with the patient and any family members present at today?s visit. HPI: Presents today for follow up left total knee replacement 08/02/[address] Chew at [facility]. Maintained anticoagulation with Lovenox and coumadin. Dressing to be removed day 7-10. Provided with pain medication at discharge. Presents feeling improved. Left knee pain is reduced since discharge home. Swelling of left leg about the same as during hospitalization. Walking with walker. No bleeding or drainage at site. Has had less appetite since surgery, reports drinking fluids sufficiently. No constipation. Alternating one and two norco every for hours as needed for pain with good relief. Taking 5 mg coumadin Thurs and Sun, 5 mg all other days,continues on lovenox today along with coumadin, has not yet checked INR today. Has HHC, RN and PT, dressing to come off later today. has follow up with ortho scheduled. PAST MEDICAL HISTORY: Reviewed and updated ALLERGIES: Reviewed and updated MEDICATIONS: Reviewed and updated SOCIAL HISTORY: Reviewed and updated FAMILY HISTORY: Reviewed and updated REVIEW OF SYSTEMS: Review of Systems: GENERAL: No weight loss, malaise or fevers. GI: Negative for abdominal discomfort, blood in stools or black stools, change in bowel habit, heart burn, nausea, vomiting, constipation MUSCULOSKELETAL: Negative for back pain and muscle pain The remainder of the review of systems is negative. All other systems reviewed and negative, other than HPI. Component Latest Ref Rng AND Units 06/03/2018 06/07/2018 Glucose 74 - 99 mg/dL 134 (H) BUN 9 - 24 mg/dL 21 Creatinine 0.73 - 1.22 mg/dL 1.07 Sodium 136 - 144 mmol/L 137 Potassium 3.7 - 5.1 mmol/L 4.2 Chloride 97 - 105 mmol/L 102 CO2 22 - 30 mmol/L 24 Anion Gap 9 - 18 mmol/L 11 Calcium 8.5 - 10.2 mg/dL 9.0 eGFR- >60 eGFR-All Other Races . >60 WBC 3.70 - 11.00 k/uL 11.66 (H) RBC 4.20 - 6.00 m/uL 4.46 Hemoglobin 13.0 - 17.0 g/dL 13.2 Hematocrit 39.0 - 51.0 % 41.4 MCV 80.0 - 100.0 fL 92.8 MCH 26.0 - 34.0 pG 29.6 MCHC 30.5 - 36.0 g/dL 31.9 RDW-CV 11.5 - 15.0 % 14.6 Platelet Count 150 - 400 k/uL 211 MPV 9.0 - 12.7 fL 12.0 INR Home CoaguChek 2.0 - 3.0 2.0 PHYSICAL EXAMINATION BP 100/72 Pulse 72 Resp 16 Wt 319 lb (144.7kg) General appearance: Well appearing, alert, in no acute distress, well-hydrated, well nourished., well appearing, alert, in no acute distress and well-hydrated, well nourished, motor and sensory appear to be normal Lungs: lungs clear to auscultation. No wheezing, rhonchi, rales clear to auscultation no wheezing or rhonchi Heart: RRR without murmur, gallop, or rubs. No ectopy Abdomen: Abdomen soft, non-tender. Bowel sounds normal. No masses, organomegaly Extremities: Edema: present left leg foot to thigh, Negative findings: Pulses: left 2+, No cyanosis, clubbing or edema 1. I have reviewed the patient record including associated test results during the last hospitalization Yes 2. I have reviewed Lab test Yes 3. I have reviewed Radiology test Yes 4. I reviewed assessment/plan with the patient/family member Yes ASSESSMENT/PLAN: 1. S/P TKR (total knee replacement), left - ICD9: V43.65, ICD10: Z96.652 2. Anticoagulated on Coumadin - ICD9: V58.83, V58.61, ICD10: Z51.81, Z79.01 Continue with coumadin dosing unchanged for now, check INR. If remains therapeutic may discontinue lovenox, he will call in with INR this afternoon for further direction Anabel Soliz APRN.CNS June 09, 2018 10:55 AM OBSOLETE Observed: 06/08/2018 Status: COMPLETED Source: [place] 12:00 AM [facility] RE[facility] Refill (ME4S) GABRIELADIMITRIS Ceja ([id number]) 1945 M Date Time Provider Department 06/08/18 WILNER CHEW ME4S During your visit today, we recorded the following information about you: Hayes Mars, PSA 06/08/2018 2:38 PM Signed Alvarez is requesting refill of norco to be picked up on Tuesday in our outpt pharmacy. Taking 2 every 4 hours during day and 1 at time overnight. Thanks. Julio Fuentes APRN.CNP 06/08/2018 3:41 PM Signed OARRS reviewed. Patient is taking medication appropriately. Will refill rx Julio Fuentes APRN.CNP June 08, 2018 3:40 PM Julio Fuentes APRN.CNP 06/09/2018 7:30 AM Signed Addended by: JULIO FUENTES on: 06/09/2018 07:30 AM Modules accepted: Orders Allergies As of Date: 06/08/2018 Noted Allergy Reaction LEVAQUIN (LEVOFLOXACIN) 08/24/2013 14 - Other: See Comments Comments: Reports nightmares LIPITOR (ATORVASTATIN) 11/05/2015 17 - Myalgia Comments: stopped by Dr. Cates LOVASTATIN 02/18/2014 14 - Other: See Comments Comments: muscle aches PRAVASTATIN 02/18/2014 14 - Other: See Comments Comments: muscle aches SIMVASTATIN 02/18/2014 14 - Other: See Comments Comments: muscle aches NWKQBVM-FHY-CSR REDUCTASE INHIBIT*11/05/2015 17 - Myalgia Comments: tried them all CEFTIN (CEFUROXIME) 02/22/2011 6 - Diarrhea Date Reviewed: 06/03/2018 Reviewed by: Rox KeyRn) MOIZ Mosquera - Fully Assessed Reason for Visit: Refill Request [94] Primary Visit Diagnosis:Status post left knee replacement [Z96.652] Other Visit Diagnosis:Primary osteoarthritis of left knee [M17.12] Order(s):Order #: [id number] Prescriptions as of 06/08/2018 Sig: HYDROCODONE 5 MG-ACETAMINOPHE* Take 1-2 tablets by mouth alo* ENOXAPARIN 40 MG/0.4 ML SUBCU* Inject 0.4 mL subcutaneously * LEVOTHYROXINE 88 MCG TABLET TAKE 1 TABLET ONCE DAILY (ADD* WARFARIN 5 MG TABLET TAKE 1 TABLET ON TUESDAY AND* MOEXIPRIL 15 MG TABLET Take 15 mg by mouth once randall* HYDROCHLOROTHIAZIDE 25 MG TAB* TAKE ONE-HALF (1/2) TABLET DA* METOPROLOL SUCCINATE ER 25 MG* Take 1 tablet by mouth once d* EZETIMIBE 10 MG TABLET Take 1 tablet by mouth once d* * XALATAN 0.005 % EYE DROPS Take as directed * KLOR-CON 10 MEQ TABLET,EXTEND* Take one(1) tablet daily. * ADULT ASPIRIN EC LOW STRENGTH* Take one(1) tablet daily. * TAMBOCOR 100 MG TABLET take one (1) tablet twice a d* Medication notes this encounter HYDROCODONE 5 MG-ACETAMINOPHEN 325 MG TABLET >> Julio Fuentes APRN.EMERGENCY NURSE 06/09/2018 7:28 AM order did not print More... More... 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 BPH W URINARY OBS/LUTS [N40.1] INVALID FOR* Atrial Fibrillation [I48.91] INVALID FOR* More... Obesity, Class III, BMI 40-49.9 (morbid obesity*INVALID FOR* Mixed hyperlipidemia [E78.2] INVALID FOR* More... GASTRITIS/DUODEN NOS W/O HEMORRH [K29.70, K29.9*INVALID FOR* More... Routine general medical examination at a health*INVALID FOR*11/11/2014 More... OSTEOARTHROS NOS-OTHER SITE [M19.90] INVALID FOR* Essential hypertension [I10] INVALID FOR* More... Bladder Neck Obstruction [N32.0] INVALID FOR* H/O: Hematuria [Z87.448] INVALID FOR* Hypothyroidism [E03.9] INVALID FOR* Umbilical hernia without mention of obstruction*INVALID FOR* Paroxysmal supraventricular tachycardia [I47.1] INVALID FOR* More... Atherosclerosis of coronary artery of chicken ranch he*INVALID FOR* More... Other pulmonary embolism and infarction [I26.99]INVALID FOR* More... Heel spur [M77.30] INVALID FOR* Hypercholesterolemia [E78.00] INVALID FOR* Imaging abnormality [R93.89] INVALID FOR* Anticoagulated on Coumadin [Z51.81, Z79.01] INVALID FOR* Primary osteoarthritis of left knee [M17.12] INVALID FOR* More... Arthritis of knee [M17.10] INVALID FOR* Obesity, Class II, BMI 35-39.9 [E66.9] INVALID FOR* Prescriptions ordered this encounter Disp Refills Start End HYDROCODONE 5 MG-ACETAMINOPHEN 325 M* 84 t* 0 06/08/2018 06/09/2018 Class: Print RX Cmt: This patient is status post a major orthopedic procedure that is associated with significant pain and has received a prescription for more than 30 morphine equivalents because of the anticipated pain* Route: ORAL Sig: Take 1-2 tablets by mouth every 4 hours as needed for Pain for up to 7 days. Earliest Fill Date: 06/08/18 Disc: Clinical Decision HYDROCODONE 5 MG-ACETAMINOPHEN 325 M* 84 t* 0 06/09/2018 06/16/2018 Class: Print RX Cmt: This patient is status post a major orthopedic procedure that is associated with significant pain and has received a prescription for more than 30 morphine equivalents because of the anticipated pain* Route: ORAL Sig: Take 1-2 tablets by mouth every 4 hours as needed for Pain (post op acute pain) for up to 7 days. Medications Discontinued During This Encounter HYDROcodone-acetaminophen (NORCO) 5-* 84 t* 0 06/02/2018 06/08/2018 Class: Print RX Cmt: Patient has undergone major orthopedic surgery and will be prescribed >30MEDD during the acute postoperative period. Route: ORAL Sig: Take 1-2 tablets by mouth every 4 hours as needed for Pain for up to 7 days. Disc: Reason for discontinue is not on file. HYDROcodone-acetaminophen (NORCO) 5-* 84 t* 0 06/08/2018 06/09/2018 Class: Print RX Cmt: This patient is status post a major orthopedic procedure that is associated with significant pain and has received a prescription for more than 30 morphine equivalents because of the anticipated pain following this procedure in the immediate postoperative period. Route: ORAL Sig: Take 1-2 tablets by mouth every 4 hours as needed for Pain for up to 7 days. Earliest Fill Date: 06/08/18 Disc: Clinical Decision Encounter Status:Closed by JULIO FUENTES on 06/08/18 PROGRESS Observed: 06/05/2018 Status: COMPLETED Source: [place] 1:28 PM [facility] REPOSITORY HNO ID: [id number] Author: Marium Rivera LPN Service: (none) Author Type: (none) Type: Progress Notes Filed: 06/12/2018 11:49 AM Note Text: TRANSITION CARE MANAGEMENT (TCM) INITIAL CONTACT [facility] Outreach Provider Action/FYI: Pt was discharged with lovenox every 12 hours. His coumadin dose is 7.5 mg every day except 5 mg on Tue and . Pt says he did take 7.5 mg yesterday Tuesday. His home INR company is sending him new strips for his machine. As the old strips are on a recall. He has been instructed to do and INR 06/06/18 or 06/07/18. Please file a standing INR order for this since he may not get the strips by the time his next INR is due. Also pt is having home physical therapy. Initial contact with patient post discharge, spoke to patient. Patient identified by name and . TRANSITION CARE MANAGEMENT INITIAL OUTREACH DOCUMENTATION: Date of Outreach: 06/05/2018 Outreach Attempt 1: Contact Made Date of Discharge 06/03/2018 Some recent data might be hidden SUMMARY: -Pt discharged from [facility] on 06/03/18. -Admitted for: right knee replacment Do you have a hospital follow up appointment with your PCP Appoint Yenifer was arranged at this call with Anabel Soliz MEDICATIONS: Many patients have questions or concerns about their medications once they are home. Were you prescribed any new medications? No Were you told to hold any medications? No Were any of your medications discontinued? If yes, what are those medications? nabumetome Do you have any questions about getting or taking your medications? No Your discharge instructions/After visit Summary (AVS) are important in guiding you through the recovery process. Is there anything I might help you understand? No Do you have all the necessary equipment and supplies at home? Yes Medical records from recent hospitalization: Gaye JAVIERN Observed: 06/05/2018 Status: COMPLETED Source: [place] 12:00 AM [facility] REPOSITORY Telephone (PHARLN) GABRIELADIMITRIS Marcial ([id number]) 1945 M Date Time Provider Department 06/05/18 EVAN (PHARMACIST)WILLIAM During your visit today, we recorded the following information about you: DEANNA RIOS PHARMACIST 06/05/2018 8:55 AM Signed Spoke to patient re: LMWH Bridge and recent referral to our Coumadin clinic home monitoring program. S/p (Name of procedure - knee replacement) on 06/02, he was discharged on 06/03. Patient cleared to resume anticoagulation by Physician performing the procedure He was discharged on his home warfarin dose but was given 7.5mg 06/02 and 06/03 according to [facility]. He was discharged on enoxaparin 40mg q24h. When discussing the home monitoring program, patient declined and would like to continue to have his anticoagulation monitored by Dr. Fitzpatrick and her team. Pt reminded that the process for him is basically the same but he said he would like Dr. Fitzpatrick to mange his medications. Dr. Fitzpatrick, we can disregard your signed order for our program at this time. However, I reminded patient that he needs to get in touch with you about retesting his INR soon post-op as he is bridging. Also, he only has test strips that are affected at this time. So until he receives more, he would likely need a lab INR draw or by other means. He was reminded to reach out to [employer] to find out when he will be obtaining more test strips that have unaffected lot #'s. Thanks, Deanna Rios, PharmD Pharmacy [facility] Adrienne Blanca Pharmacist 06/07/2018 5:44 PM Signed PT INR (no units) Date Value 06/03/2018 1.1 06/02/2018 1.1 05/18/2018 2.1 INR Home CoaguChek (no units) Date Value 06/07/2018 2.0 Mr Ochoa declined home INR monitoring by the Anticoagulation Clinic. He is currently monitored by Dr Fitzpatrick. Pt will be discharged from the pharmacist INR home monitoring list. Adrienne Blanca, Pharmacist Lavern Arriaga LPN, LINSEY 06/08/2018 6:40 AM Signed Adrienne Blanca (Pharmacist) Lavern Newton (Linsey) LINSEY Arriaga ? Hi Dr Fitzpatrick, please contact Mr Ochoa with today's INR. ?He is no longer on the Pharmacist Home INR monitoring program. ?Patient declined. Thank you for your time, Adrienne Allergies As of Date: 06/05/2018 Noted Allergy Reaction LEVAQUIN (LEVOFLOXACIN) 08/24/2013 14 - Other: See Comments Comments: Reports nightmares LIPITOR (ATORVASTATIN) 11/05/2015 17 - Myalgia Comments: stopped by Dr. Cates LOVASTATIN 02/18/2014 14 - Other: See Comments Comments: muscle aches PRAVASTATIN 02/18/2014 14 - Other: See Comments Comments: muscle aches SIMVASTATIN 02/18/2014 14 - Other: See Comments Comments: muscle aches [id number]-[id number] REDUCTASE INHIBIT*11/05/2015 17 - Myalgia Comments: tried them all CEFTIN (CEFUROXIME) 02/22/2011 6 - Diarrhea Date Reviewed: 06/03/2018 Reviewed by: Rox Singleton) MOIZ Mosquera - Fully Assessed Reason for Visit: Anticoagulation Telephone Fu [148] Cmt: post-op Visit Diagnosis:Paroxysmal atrial fibrillation (HCC) [I48.0] Prescriptions as of 06/05/2018 Sig: ENOXAPARIN 40 MG/0.4 ML SUBCU* Inject 0.4 mL subcutaneously * HYDROCODONE 5 MG-ACETAMINOPHE* Take 1-2 tablets by mouth alo* LEVOTHYROXINE 88 MCG TABLET TAKE 1 TABLET ONCE DAILY (ADD* WARFARIN 5 MG TABLET TAKE 1 TABLET ON TUESDAY AND* MOEXIPRIL 15 MG TABLET Take 15 mg by mouth once randall* HYDROCHLOROTHIAZIDE 25 MG TAB* TAKE ONE-HALF (1/2) TABLET DA* METOPROLOL SUCCINATE ER 25 MG* Take 1 tablet by mouth once d* EZETIMIBE 10 MG TABLET Take 1 tablet by mouth once d* * XALATAN 0.005 % EYE DROPS Take as directed * KLOR-CON 10 MEQ TABLET,EXTEND* Take one(1) tablet daily. * ADULT ASPIRIN EC LOW STRENGTH* Take one(1) tablet daily. * TAMBOCOR 100 MG TABLET take one (1) tablet twice a d* More... More... 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 BPH W URINARY OBS/LUTS [N40.1] INVALID FOR* Atrial Fibrillation [I48.91] INVALID FOR* More... Obesity, Class III, BMI 40-49.9 (morbid obesity*INVALID FOR* Mixed hyperlipidemia [E78.2] INVALID FOR* More... GASTRITIS/DUODEN NOS W/O HEMORRH [K29.70, K29.9*INVALID FOR* More... Routine general medical examination at a health*INVALID FOR*11/11/2014 More... OSTEOARTHROS NOS-OTHER SITE [M19.90] INVALID FOR* Essential hypertension [I10] INVALID FOR* More... Bladder Neck Obstruction [N32.0] INVALID FOR* H/O: Hematuria [Z87.448] INVALID FOR* Hypothyroidism [E03.9] INVALID FOR* Umbilical hernia without mention of obstruction*INVALID FOR* Paroxysmal supraventricular tachycardia [I47.1] INVALID FOR* More... Atherosclerosis of coronary artery of chicken ranch he*INVALID FOR* More... Other pulmonary embolism and infarction [I26.99]INVALID FOR* More... Heel spur [M77.30] INVALID FOR* Hypercholesterolemia [E78.00] INVALID FOR* Imaging abnormality [R93.89] INVALID FOR* Anticoagulated on Coumadin [Z51.81, Z79.01] INVALID FOR* Primary osteoarthritis of left knee [M17.12] INVALID FOR* More... Arthritis of knee [M17.10] INVALID FOR* Obesity, Class II, BMI 35-39.9 [E66.9] INVALID FOR* Follow-up and Disposition History Recorded Encounter Status:Closed by BLANCA (PHARMACIST) ADRIENNE on 06/07/18 LEX Observed: 06/05/2018 Status: COMPLETED Source: [facility] 12:00 AM [facility] REPOSITORY Patient Outreach (INTMWS) DIMITRIS OCHOA ([id number]) 1945 M Date Time Provider Department 06/05/18 FARTUN FITZPATRICK INTMWS During your visit today, we recorded the following information about you: Marium Rivera LINSEY 06/12/2018 11:49 AM Signed TRANSITION CARE MANAGEMENT (TCM) INITIAL CONTACT [facility] Outreach Provider Action/FYI: Pt was discharged with lovenox every 12 hours. His coumadin dose is 7.5 mg every day except 5 mg on Tue and . Pt says he did take 7.5 mg yesterday Tuesday. His home INR company is sending him new strips for his machine. As the old strips are on a recall. He has been instructed to do and INR 06/06/18 or 06/07/18. Please file a standing INR order for this since he may not get the strips by the time his next INR is due. Also pt is having home physical therapy. Initial contact with patient post discharge, spoke to patient. Patient identified by name and . TRANSITION CARE MANAGEMENT INITIAL OUTREACH DOCUMENTATION: Date of Outreach: 06/05/2018 Outreach Attempt 1: Contact Made Date of Discharge 06/03/2018 Some recent data might be hidden SUMMARY: -Pt discharged from [facility] on 06/03/18. -Admitted for: right knee replacment Do you have a hospital follow up appointment with your PCP Appoint Yenifer was arranged at this call with Anabel Soliz MEDICATIONS: Many patients have questions or concerns about their medications once they are home. Were you prescribed any new medications? No Were you told to hold any medications? No Were any of your medications discontinued? If yes, what are those medications? nabumetome Do you have any questions about getting or taking your medications? No Your discharge instructions/After visit Summary (AVS) are important in guiding you through the recovery process. Is there anything I might help you understand? No Do you have all the necessary equipment and supplies at home? Yes Medical records from recent hospitalization: Epic Allergies As of Date: 06/05/2018 Noted Allergy Reaction LEVAQUIN (LEVOFLOXACIN) 08/24/2013 14 - Other: See Comments Comments: Reports nightmares LIPITOR (ATORVASTATIN) 11/05/2015 17 - Myalgia Comments: stopped by Dr. Cates LOVASTATIN 02/18/2014 14 - Other: See Comments Comments: muscle aches PRAVASTATIN 02/18/2014 14 - Other: See Comments Comments: muscle aches SIMVASTATIN 02/18/2014 14 - Other: See Comments Comments: muscle aches FPKAXUE-KKE-YXB REDUCTASE INHIBIT*11/05/2015 17 - Myalgia Comments: tried them all CEFTIN (CEFUROXIME) 02/22/2011 6 - Diarrhea Date Reviewed: 06/03/2018 Reviewed by: Rox (Rn) MOIZ Mosquera - Fully Assessed Reason for Visit: Transition Of Care [4074] Primary Visit Diagnosis:Paroxysmal atrial fibrillation (HCC) [I48.0] Order(s):PROTHROMBIN TIME/PT [SQPT] Order #: [id number] STANDING Prescriptions as of 06/05/2018 Sig: ENOXAPARIN 40 MG/0.4 ML SUBCU* Inject 0.4 mL subcutaneously * X HYDROCODONE 5 MG-ACETAMINOPHE* Take 1-2 tablets by mouth alo* LEVOTHYROXINE 88 MCG TABLET TAKE 1 TABLET ONCE DAILY (ADD* WARFARIN 5 MG TABLET TAKE 1 TABLET ON TUESDAY AND* MOEXIPRIL 15 MG TABLET Take 15 mg by mouth once randall* HYDROCHLOROTHIAZIDE 25 MG TAB* TAKE ONE-HALF (1/2) TABLET DA* METOPROLOL SUCCINATE ER 25 MG* Take 1 tablet by mouth once d* EZETIMIBE 10 MG TABLET Take 1 tablet by mouth once d* * XALATAN 0.005 % EYE DROPS Take as directed * KLOR-CON 10 MEQ TABLET,EXTEND* Take one(1) tablet daily. * ADULT ASPIRIN EC LOW STRENGTH* Take one(1) tablet daily. * TAMBOCOR 100 MG TABLET take one (1) tablet twice a d* More... More... 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 BPH W URINARY OBS/LUTS [N40.1] INVALID FOR* Atrial Fibrillation [I48.91] INVALID FOR* More... Obesity, Class III, BMI 40-49.9 (morbid obesity*INVALID FOR* Mixed hyperlipidemia [E78.2] INVALID FOR* More... GASTRITIS/DUODEN NOS W/O HEMORRH [K29.70, K29.9*INVALID FOR* More... Routine general medical examination at a [facility]*INVALID FOR*11/11/2014 More... OSTEOARTHROS NOS-OTHER SITE [M19.90] INVALID FOR* Essential hypertension [I10] INVALID FOR* More... Bladder Neck Obstruction [N32.0] INVALID FOR* H/O: Hematuria [Z87.448] INVALID FOR* Hypothyroidism [E03.9] INVALID FOR* Umbilical hernia without mention of obstruction*INVALID FOR* Paroxysmal supraventricular tachycardia [I47.1] INVALID FOR* More... Atherosclerosis of coronary artery of chicken ranch he*INVALID FOR* More... Other pulmonary embolism and infarction [I26.99]INVALID FOR* More... Heel spur [M77.30] INVALID FOR* Hypercholesterolemia [E78.00] INVALID FOR* Imaging abnormality [R93.89] INVALID FOR* Anticoagulated on Coumadin [Z51.81, Z79.01] INVALID FOR* Primary osteoarthritis of left knee [M17.12] INVALID FOR* More... Arthritis of knee [M17.10] INVALID FOR* Obesity, Class II, BMI 35-39.9 [E66.9] INVALID FOR* Encounter Status:Closed by MARIUM RIVERA LPN on 06/12/18 CASE MANAGEM Observed: 06/03/2018 Status: COMPLETED Source: [facility] 6:31 PM CLINIC OTHER CAMPUS REPOSITORY HNO ID: [id number] Author: Lakisha French (Sw) Service: Care Management Author Type: Custom Car Builder Type: Care Mgt Progress Note Filed: 06/05/2018 9:28 AM Note Text: CARE MANAGEMENT DISCHARGE NOTE SERVICE DATE: 06/05/2018 SERVICE TIME: 9:26 AM LOS: 1 day Admission Date: 06/02/2018 DISCHARGE ARRANGEMENT (list agency and phone number) Home Care - PT Provider: [place] MICHELLE CAREGIVER ASSESSMENT: Caregiver is ready, willing and able to meet the patient's needs as recommended by the inter-professional team? Yes Patient's transition needs and plan for meeting these needs: [facility] agency and pts. will assist pt. In meeting his needs at home. Does the patient have an acute stroke diagnosis, or has the patient had a stroke during this admission? No HANDOFF COMMUNICATION: Primary Care Physician: Dr. Fitzpatrick TRANSPORTATION ARRANGEMENTS: Car to transport pt. home ADDITIONAL CONTACT RESOURCES: Lovenox was checked at pts. Pharmacy and the out of pocket cost is $10. Needs Prior to Discharge: None;Ready for Discharge CHLOE confirmed today that [facility] able to accept pt. And the Start of Care date is Wednesday, June 06, 2018. SW called pt. At home and relayed this information to him. CHLOE will remain available should any further discharge planning needs arise. SIGNATURE: Lakisha French POLICY WRITER SALES, NATURAL RESOURCES SPECIALIST, ADI-CHLOE PATIENT NAME: Dimitris Ochoa DATE: June 05, 2018 TIME: 9:25 AM PAGER/CONTACT #: CASE MGT INIT Observed: 06/03/2018 Status: [facility] REPOS[facility] HNO ID: [id number] Author: Lakisha French (Sw) Service: Care Management Author Type: Custom Car Builder Type: Care Mgt Initial Assessment Filed: 06/03/2018 4:38 PM Note Text: CARE MANAGEMENT: ASSESSMENT AND DISCHARGE PLAN SERVICE DATE: 06/03/2018 SERVICE TIME: 3:45PM PRIMARY CARE PHYSICIAN: Fartun Fitzpatrick MD-verified ADMISSION STATUS: Inpatient Needs Prior to Discharge: Home Care Order MEDICAL: Patient/Technical Account Representative Stated Goals: To have reduction in pain To have reduction in symptoms To improve my functional status To be cured/healed Health Insurance: [employer] MEDICARE PPO None Health Issues Impacting Discharge Plan: Chronic Anticoagulated on Coumadin, Generalized OA, Hypothyroidism Last Admission Date: none Is this Within the Past 30 days? N/A Advance Directive: Current Advance Directive: Health Care Power of Unit Director In Chart: Yes Up To Date and Valid: Yes Health Literacy: 1. How often do you need to have someone help you when you read instructions, pamphlets, or other written material from your doctor or pharmacy? Never - 1 2. How confident are you filling out medical forms by yourself? Extremely - 1 If Patient scores > 3 on either question, the following interventions were put into place: Patient did not score > 3 FUNCTIONAL AND COGNITIVE/BEHAVIORAL PRIOR TO ADMISSION: Baseline Mental Status: Alert AND Oriented, Person, Place , Time and Situation Functional Status: Independent Does Patient Currently Receive Any Community Services or Home Care? None Equipment Prior to Admission: None Has the Patient Been in a Fpc Facility in the Past 30 days? No SOCIAL: Living Arrangement: Home Lives With: Spouse Financial Resources: Retired Primary Contact: Extended Emergency Contact Information Primary Emergency Contact: Ramon Ochoa Address: [address] [place] [id number] Mobile Relation: Spouse Supportive: Yes Other Important Patient Contacts: None Caregiver Assessment: Caregiver is ready, willing and able to meet the patient's needs as recommended by the inter-professional team? No Caregiver Needed Patient's transition needs and plan for meeting these needs: Pt. Has been able to meet his own needs. Does the patient have an acute stroke diagnosis, or has the patient had a stroke during this admission? No Medication Adherence: I am convinced of the importance of my prescription medication: Agree completely - 0 I worry that my prescription medication will do more harm than good to me Disagree completely - 0 I feel financially burdened by my [id number] expenses for my prescription medication: Disagree completely - 0 Patient is categorized as low risk < 2 Are you interested in bedside delivery of your medications? No Food Concerns: In the Last Month, Have You had Trouble Getting Food? No trouble getting food During the Last Month, Have You Worried Whether Your Food Would Run Out Before You Had Enough Money to Buy More? No Is the Patient Psychosocially Complex? No ASSESSMENT AND PLAN: Medical Needs: 2 or more chronic diseases Psychosocial Needs: None FREEDOM OF CHOICE EXPLAINED: Yes given to pt. bedside Financial Disclosure Provided The patient and/or family has been given the Provider List: Yes Provider List: Home Care Preference: 1)[facility] 2) [facility] POTENTIAL TRANSITION PLANS Home [facility] OT/PT Pt. Will need HHC upon discharge. CHLOE met w/pt. Bedside, introduced self and completed an assessment. Pt. Reports that he lives at home w/his . Pt. Reports that sometimes he was in pain w/ambulation however he was still independent. Pt. Will be discharged on lovenox. Pt. Uses [facility] in [place], [place]. SW received permission to acquire the cost of the prescription. Pts. Out of pocket cost is approx. $10. CHLOE informed pt. Of this information. Pt. Will case picker approx. Half of the prescription tomorrow and the other half Tuesday. Pt. Also selected [facility] for HHC. SW sent a referral. SW will call pt. On Tuesday at home to confirm they are able to accept. Pt. Is agreeable to this plan. Pt. Reports that he feels safe going home and will continue to do the exercises that therapy gave him. CHLOE updated bedside nurse on d/c plan. SW will remain available should any further discharge planning needs arise. SIGNATURE: Lakisha French POLICY WRITER SALES, NATURAL RESOURCES SPECIALIST, PAUL PATIENT NAME: Dimitris Ochoa DATE: June 03, 2018 TIME: 4:28 PM PAGER/CONTACT #: THERAPY NT Observed: 06/03/2018 Status: COMPLETED Source: [place] 3:12 PM CLINIC OTHER CAMPUS REPOSITORY HNO ID: [id number] Author: Kali KeyPtVito Hernandez Service: Physical Therapy Author Type: Physical Therapist Type: Therapy (PT/OT/Speech/Resp) Filed: 06/03/2018 3:15 PM Note Text: Physical Therapy Treatment SERVICE DATE: 06/03/2018 SERVICE TIME: 2720 to 1515 ROOM: [place] [address] Recommended Discharge Disposition: Home PT Anticipated Discharge Needs: Physical Assist at Home;Supervision at Home Physical Assist at Home for: Cleaning;Laundry;Meals;Stairs;Safety;Self Care;Shopping;Transportation Supervision at Home due to: Other: See Comment (initially for safety) PT Recommendations to Nursing: Ambulate with device;To bathroom;With assist of 1 person Device: Wheeled Walker PT 6 Clicks Score: 18 Precautions/Activity Restrictions: Total Knee Replacement;Fall Risk Precaution/Activity Restriction Comments: WBAT left knee ASSESSMENT : Patient presents with decreased functional mobility s/p TKR (POD #1). Significant improvement this afternoon: able to ambulate and ascend/descend one step. Requires skilled PT for therapeutic activity, gait training, therapeutic exercises to improve functional mobility. Patient Disposition at Start of Session: Supine in Bed;Call Rowan in Reach;SCDs Patient Disposition at End of Session: OOB in Chair;Call Rowan in Reach Tolerated Full Session Physical Therapy Problem List: Decreased Activity Tolerance;Decreased Range Of Motion;Decreased Strength;Functional Mobility Impairment Patient /Caregiver Goals: Go Home Goals for Plan of Care: Able to perform HEP with: Independent Rolling with: Independent Transfer supine to/from sit with: Contact Guard Assistance Transfer sit to/from stand with: Contact Guard Assistance Ambulate with: Contact Guard Assistance Distance: 25 Device: Wheeled Walker Ambulate up and down steps with: Stand By Assistance Number of steps: 3 Device: Rail;Crutch(es) Progress Toward Goals: Progressing as expected Rehab Potential: Good PLAN: Treatment Frequency (times per week): 7;BID Current admission Treatment Interventions: Functional Mobility Training;Strengthening;Joint Mobility Plan of Care developed with: Patient TREATMENT INTERVENTIONS: Therapy Diagnosis: Difficulty walking-musculoskeletal (s/p TKR left knee) Interventions Provided: Gait Training (32980) Therapeutic Exercise (15193) Treatment Minutes: 10 1 unit Skilled Intervention(s): Instruction in therapeutic exercise quad sets, glut sets, ankle pumps, SLR, heel slides, SAQ, seated heel slides: 10x1 each Gait Training (26783) Treatment Minutes: 30 2 units Skilled Intervention(s): Instruction in sit to stand technique with proper hand placement and body positioning at edge of bed/chair, Instruction in stand to sit technique with LE's touching chair/bed and reaching back for surface, Instruction in sequencing, gait pattern, Instruction in correction of gait deviations, Instruction in WB precautions, Instruction in stair negotiation and Instruction in use of equipment, cues for sequence and pattern Total Timed Code Treatment Minutes: 40 Total Treatment Time (minutes): 45 FUNCTIONAL G CODE: PT 6 Clicks Score: 18 (06/03/18 1430) Mobility: Walking and Moving Around Current Status (G8978): CK (06/03/181429) Mobility: Walking and Moving Around Goal Status (G8979): CK (06/03/181429) Based on clinical assessment and the score on the 6 Clicks Functional Assessment Tool, the G code and corresponding severity modifiers are documented above. Physician signature certifies treatment plan of care established above for the period of 06/03/2018 through 06/17/2018. SUBJECTIVE: Current Hospital Course: Chart reviewed and no significant medical updates relevant to therapy were noted Reason for Physical Therapy Consult : post op care: post op TKR left knee Relevant Past Medical History: osteoarthritis, HTN, hypothyroidism, diverticulosis, lipoma of skin, glaucoma Patient Report: Willing to participate in therapy session. Home Environment Patient Lives With: Spouse Assistance Available: 24 Hour Entry To Home: Stairs Number Of Stairs Into Home: 3 Number Of Stairs To Bed/Bath: 0 Tub/Shower Type: walk in shower has a seat available Laundry: n/a spouse will do laundry Equipment Owned: Wheeled Walker;Shower Chair;Crutch(es) Prior Functional Level: Within Functional Limits OBJECTIVE: CURRENT FUNCTIONAL STATUS: Current Functional Mobility Assist Level Additional Information Rolling Supervision Supine to Sit Supervision Sit to Supine Scooting Supervision Sit to Stand Supervision Stand to Sit Supervision Bed to Chair Minimal Assistance Bed To Chair Transfer Type: Stand Pivot Bed To Chair Transfer Equipment: Wheeled Walker Toilet/Commode Gait Verbal Cues Only Gait Device: Wheeled Walker Gait Distance (feet): 25 Stairs Contact Guard Assistance Stairs Device: Rail;Hand Held Assist Number of Stairs: 1 Curb Step Car Transfer General Gait Deviations: Crystal decreased Please see discipline specific clinical documentation flowsheet for complete details for this therapy evaluation/treatment. SIGNATURE: Kali Hernandez, PT PATIENT NAME: Dimitris Ochoa DATE: June 03, 2018 TIME: 3:12 PM PT ED Observed: 06/03/2018 Status: COMPLETED Source: [facility] 2:47 PM CLINIC OTHER CAMPUS REPOSITORY HNO ID: [id number] Author: Lio Wong (Pharmacy Resdient) Service: Pharmacy Author Type: Pharmacist Type: Patient Education Filed: 06/03/2018 2:50 PM Note Text: PHARMACY WARFARIN EDUCATION Patient Name: Dimitris Ochoa Account #: Data Unavailable Admission Date: 06/02/2018 9:52 AM Date of Contact: June 03, 2018 Time of Contact: 2:47 PM Patient new to warfarin? No: Previous (home) dosage: 5 mg and Tuesday, 7.5 mg all other days Outpatient follow-up plan: Follow-up with Physician: name: Dr. Fitzpatrick Indication for warfarin: atrial fibrillation Target INR range: 2.0 - 3.0 (Target 2.5) Patient received full warfarin education. Initial patient education included: * Reason for taking warfarin * How warfarin works * What the INR test is, frequency of testing, and the importance of monitoring warfarin with scheduled PT/INR blood draws or finger sticks * Information about plans to monitor warfarin post-discharge was reviewed * When to take warfarin and what to do if a dose is missed * Identifying tablet(s) and to notify the doctor/anticoagulation clinic if there is a change in tablet color, shape, or markings * Drug interactions (Rx, OTC, herbal) and importance of notifying the doctor/anticoagulation clinic with any changes. * Do not take or discontinue any medication or over the counter medication except on the advice of the physician or pharmacist because certain medications can affect the PT/INR. * Potential duration of therapy * Signs/symptoms of bleeding and what to do if they occur because warfarin increases the risk of bleeding * Precautionary measures to decrease trauma/bleeding * Signs/symptoms of thrombosis and what to do if they occur * Dietary considerations discussing that a ?consistent amount? of foods with vitamin K rather than avoidances should be advised and to avoid major changes in dietary habits, or notify health professional before changing habits because diet can affect the PT/INR * Carrying identification * Importance of notifying healthcare provider and [facility] when hospitalizations occur and when another healthcare provider has asked them to stop/hold warfarin before any procedure * Importance of notifying all healthcare providers they are taking warfarin * The importance of taking warfarin as instructed and the potential ramifications of non- compliance were explained to the patient. The patient was provided ?Understanding the Anticoagulant Medication Warfarin? education booklet which includes the following : compliance Issues, dietary advice, follow-up with physician, follow- up monitoring, potential adverse drug reactions and interactions. READINESS TO LEARN COGNITIVE ABILITY: Alert and oriented MOTIVATION TO LEARN: Interested FAMILY SUPPORT: Unable to assess - Family not present INSTRUCTION PROVIDED TO: Patient PATIENT LEARNS BEST BY: Unable to Assess FACTORS AFFECTING LEARNING: None PHYSICAL LIMITATIONS AFFECTING LEARNING: None LEARNING RESPONSE DIAGNOSIS: SEE INDICATION(S) ABOVE PATIENT/FAMILY RESPONSE: Verbalizes understanding of: The signs and symptoms of a worsening condition that warrant a call to the physician. The correct actions to take to manage symptoms associated with his/her disease/illness. The side effects associated with the medication that warrant a call to the physician. Diet / weight monitoring METHOD OF INSTRUCTION: Written instruction - handouts Verbal instruction SUPPLEMENTAL MATERIAL PROVIDED: Warfarin booklet: FURTHER RECOMMENDATIONS (if any) N/A EVIDENCE OF LEARNING Outcomes met: Describes/able to restate information Outcomes not met: N/A Outpatient Follow-up: Primary Physician LIO WONG, PENSION AGENT THERAPY NT Observed: 06/03/2018 Status: COMPLETED Source: [place] 1:47 PM CLINIC OTHER CAMPUS REPOSITORY O ID: [id number] Author: Ishmael (Ot) Letitia Service: Occupational Therapy Author Type: Occupational Therapist Type: Therapy (PT/OT/Speech/Resp) Filed: 06/03/2018 1:53 PM Note Text: Occupational Therapy Evaluation SERVICE DATE: 06/03/2018 SERVICE TIME: 1130 to 1201 ROOM: [place] [address] Recommended Discharge Disposition: Home OT Recommended Discharge Disposition Comments: Patient would benefit from continiued therapy at home to increase ease independence and safety with ADLS and functional mobility within his own home. Anticipated Discharge Needs: Physical Assist at Home;Supervision at Home Physical Assist at Home for: Cleaning;Laundry;Meals;Stairs;Safety;Self Care;Shopping;Transportation Supervision at Home due to: Other: See Comment (initially for safety) OT Recommendations to Nursing: To Bathroom for ADL?s /and or Toileting;OOB for meals;Transfer to Chair;With assist of 1 person Equipment: Wheeled Walker OT 6 Clicks Score: 19 Precautions/Activity Restrictions: Total Knee Replacement;Fall Risk Precaution/Activity Restriction Comments: WBAT left knee ASSESSMENT: Patient presents with decreased ease indepndence and safety as would be expected s/p left TKA. Patient required overall CG with functional mobility in preparation and involved in ADL tasks. Patient had just returned to bed prior to being seen by this therapist with mobility limited to EOB and standing EOB with patient returned to bed at end of session. Educated on catalogue compiler and sock aide use with patient demonstrating understanding of use with cues. Requires skilled OT for increasing ease independence and safety with ADLS and functional mobility and education on DME and adaptive equipment. . Patient Disposition at Start of Session: Supine in Bed;Call Rowan in Reach Patient Disposition at End of Session: Supine in Bed;Call Rowan in Reach Tolerated Full Session Occupational Therapy Problem List: Education Deficit;Impaired Self Care;Functional Mobility Impairment Patient /Caregiver Goals: Go Home Goals for Plan of Care: Grooming with: Stand By Assistance (at sink) Lower Body Dressing with: Stand By Assistance (with equipment as indicated) Chair Transfer with: Stand By Assistance Toilet Transfer with: Stand By Assistance Progress Toward Goals: Progressing as expected Rehab Potential: Excellent PLAN: Treatment Frequency (times per week): 5 Current admission Treatment Interventions: Education;Self Care / Home Management;Functional Mobility Training Plan of Care developed with: Patient TREATMENT INTERVENTIONS: Therapy Diagnosis: Reduced mobility-other;Decreased activities of daily living (ADL) Interventions Provided: Evaluation;Self Chcf Management (60381) $ Evaluation-Low (11496) Billed Units: 1 unit Self Chcf Management (17174) Treatment Minutes: 17 1 unit Skilled Intervention(s): Instructed in post-op instructions during ADLs with patient instructed on DME and adaptive equipment with good reported understanding. Provided instruction, cuing and facilitation for functional mobility involved in and in preparation for ADL tasks with cues for supine to and from sit and sit to and from stand at walker Provided instruction, cuing and facilitation for lower body dressing with patient instructed on adaptive equipment with patient able to don doff socks with catalogue compiler and sock aide with cues Education in role of OT and plans and goals for therapy. Total Timed Code Treatment Minutes: 17 Total Treatment Time (minutes): 31 FUNCTIONAL G CODE: OT 6 Clicks Score: 19 (06/03/18 1130) Self Care Current Status (G8987): CK (06/03/18 1130) Self Care Goal Status (G8988): CJ (06/03/18 1130) Based on clinical assessment and the score on the 6 Clicks Functional Assessment Tool, the G code and corresponding severity modifiers are documented above. SUBJECTIVE: Current Hospital Course: Chart reviewed; left TKA Reason for Occupational Therapy Consult: recent change in ability to perform self care Relevant Past Medical History: osteoarthritis, HTN, hypothyroidism, diverticulosis, lipoma of skin, glaucoma Patient Report: Patient cleared by nursing with reports patient just returned to bed. patient supine in bed agreeable to OT Home Environment Patient Lives With: Spouse Assistance Available: 24 Hour Entry To Home: Stairs Number Of Stairs Into Home: 3 Number Of Stairs To Bed/Bath: 0 Tub/Shower Type: walk in shower has a seat available Laundry: n/a spouse will do laundry Equipment Owned: Wheeled Walker;Shower Chair;Crutch(es) Prior Functional Level: Within Functional Limits OBJECTIVE: Responsiveness: Alert;Awake Follows Commands: Cueing Needed Cueing to Follow Commands: Minimum (for technique) CURRENT FUNCTIONAL STATUS: Current Activities of Daily Living Assist Level Feeding Independent Grooming Stand By Assistance (at EOB per clinical judgment) Bathing Upper Body Stand By Assistance (per clinical judgment) Bathing Lower Body Minimal Assistance (difficulty reaching past left ankle educated on AE) Dressing Upper Body Stand By Assistance Dressing Lower Body Moderate Assistance (unable to reach feet to don doff socks, educated on AE) Toileting Instrumental Activities of Daily Living Assist Level Meal/Beverage Prep Light Cleaning Laundry Medication Management with Strategies Functional Mobility Assist Level Rolling Supine to Sit Contact Guard Assistance (with cues) Sit to Supine Contact Guard Assistance Scooting Stand By Assistance (to EOB) Sit to Stand Contact Guard Assistance Stand to Sit Contact Guard Assistance Bed to Chair Toilet/Commode Functional Mobility Contact Guard Assistance (7 side steps at EOB to achieve higher in bed) Wheeled Walker Please see discipline specific clinical documentation flowsheet for complete details for this therapy evaluation/treatment. SIGNATURE: SAGE Gustafson/Marcial PATIENT NAME: Dimitris Ochoa DATE: June 03, 2018 TIME: 1:47 PM PROGRESS Observed: 06/03/2018 Status: COMPLETED Source: [facility] 1:00 PM CLINIC OTHER CAMPUS REPOSITORY O ID: [id number] Author: Ronnie Israel Service: General Internal Medicine Author Type: Physician Type: Progress Notes Filed: 06/03/2018 1:09 PM Note Text: INPATIENT CONSULT PROGRESS NOTES Patient Name: Dimitris Ochoa DATE of SERVICE: 06/03/18 TIME of SERVICE: 8:40 CONSULTING SERVICE: Medicine,post op # 1 INTERVAL HPI: uneventful night, pain is fairly control Patient seen and examined: Discussed with RN. Vitals/Meds/Labs/U/O reviewed Alert AND Oriented NO nausea, vomiting NO light headedness, NO shortness of breathe Moist oral mucosa CVS ? RRR Lungs ? Clear to auscultation Abdomen ? soft,NT, + BS LLE ? Ankle No edema RLE ? Ankle No edema MEDICATIONS: Current hospital medications: warfarin 7.5 mg tab(s) (COUMADIN) 7.5 mg ORAL DAILY - WARFARIN metoprolol succinate ER 25 mg tab(s) (TOPROL XL) 25 mg ORAL DAILY ezetimibe 10 mg tab(s) (ZETIA) 10 mg ORAL DAILY latanoprost 0.005 % 1 Drop (XALATAN) 1 Drop BOTH EYES As Directed levothyroxine 88 mcg tab(s) (SYNTHROID) 88 mcg ORAL DAILY (6 AM) enoxaparin 30 mg injection (LOVENOX) 30 mg SUBCUTANEOUS q 12 H lactated ringers infusion 75 mL/hr INTRAVENOUS CONTINUOUS 0.9% NaCl 2-10 mL 2-10 mL INTRAVENOUS q 12 H HYDROcodone 5 mg - acetaminophen 325 mg tablet (NORCO) 1-2 tablet ORAL q 4 H PRN morphine 2 mg injection 2 mg INTRAVENOUS q 2 H PRN ondansetron orally disintegrating 4 mg tab(s) (ZOFRAN ODT) 4 mg ORAL q 6 H PRN ondansetron (PF) 4 mg injection (ZOFRAN) 4 mg INTRAVENOUS q 6 H PRN metoclopramide HCl 10 mg injection (REGLAN) 10 mg INTRAVENOUS q 6 H PRN magnesium hydroxide 400 mg/5 mL 30 mL (MOM) 30 mL ORAL DAILY PRN melatonin 1 mg tab(s) 1 mg ORAL DAILY (8 PM) diphenhydrAMINE 25 mg (BENADRYL) 25 mg ORAL q 4 H PRN aluminum-magnesium hydroxide-simethicone 200-200-20 mg/5 mL 30 mL (MAALOX,MYLANTA,MAG-AL PLUS) 30 mL ORAL q 6 H PRN ascorbic acid (vitamin C) 500 mg tab(s) (VITAMIN C) 500 mg ORAL BID w MEALS docusate sodium 100 mg cap(s) (COLACE) 100 mg ORAL BID ketorolac 15 mg injection (TORADOL) 15 mg INTRAVENOUS q 6 H flecainide 100 mg tab(s) (TAMBOCOR) 100 mg ORAL q 12 H polyethylene glycol 3350 17 g packet (MIRALAX, GLYCOLAX) 17 g ORAL DAILY PHYSICAL EXAM: Patient Vitals for the past 24 hrs: BP Temp Temp src Pulse Resp SpO2 Height Weight 06/03/18 1130 117/79 36.3 ?C (97.3 ?F) Axillary (!) 54 20 96 % - - 06/03/18 0759 127/80 36.3 ?C (97.3 ?F) Oral (!) 51 18 97 % - - 06/03/18 0600 - - - - - - - (!) 146.9 kg (323 lb 13.7 oz) 06/03/18 0400 129/66 36.6 ?C (97.9 ?F) Oral (!) 54 16 96 % - - 06/03/18 0040 - - - 60 - 95 % - - 06/03/18 0033 113/71 36.4 ?C (97.5 ?F) Oral (!) 53 16 92 % - - 06/02/18 2002 146/82 36.3 ?C (97.3 ?F) Oral 66 18 94 % - - 06/02/18 1655 127/75 - Oral 60 16 96 % - - 06/02/18 1609 135/80 36.3 ?C (97.3 ?F) Oral (!) 53 16 95 % - - 06/02/18 1606 - - - - - - 193 cm (6' 4) (!) 146 kg (321 lb 14 oz) 06/02/18 1545 126/80 - - (!) 52 16 93 % - - 06/02/18 1530 124/78 - - (!) 48 16 95 % - - 06/02/18 1515 119/77 - - (!) 51 16 95 % - - 06/02/18 1500 118/76 - - (!) 53 16 94 % - - 06/02/18 1454 113/74 36.3 ?C (97.3 ?F) Temporal Art (!) 54 16 92 % - - Body mass index is 39.42 kg/m?. DATA: CBC: Recent Labs 06/03/18 0509 WBC 11.66* RBC 4.46 HB 13.2 HCT 41.4 PLT 211 MCV 92.8 MCH 29.6 MPV 12.0 Coags: Recent Labs 06/03/18 0509 INR 1.1 CMP: Recent Labs 06/03/18 0509 NA 137 K 4.2 CHLOR 102 CO2 24 BUN 21 CREAT 1.07 GLUC 134* CA 9.0 ANION 11 ASSESSMENT AND PLAN: A. OA S/P - Total Knee Unilateral: left Continue PT/OT Atrial fib continue coumadin, B-forest and Tambocor HTN stable. Possible discharge today SIGNATURE: Ronnie Israel MD THERAPY NT Observed: 06/03/2018 Status: COMPLETED Source: [facility] 10:07 AM CLINIC OTHER CAMPUS REPOSITORY HNO ID: [id number] Author: Kali (Pt) David Service: Physical Therapy Author Type: Physical Therapist Type: Therapy (PT/OT/Speech/Resp) Filed: 06/03/2018 10:13 AM Note Text: Physical Therapy Evaluation SERVICE DATE: 06/03/2018 SERVICE TIME: 899 to 944 ROOM: [place] [address] Recommended Discharge Disposition: Home PT PT Recommendations to Nursing: Ambulate with device;To bathroom;With assist of 1 person Device: Wheeled Walker PT 6 Clicks Score: 17 Precautions/Activity Restrictions: Total Knee Replacement;Fall Risk Precaution/Activity Restriction Comments: WBAT left knee ASSESSMENT : Patient presents with decreased functional mobility s/p TKR (post op day 1). Requires skilled PT for progressive ROM, strengthening, gait training in order to restore functional mobility. 73 yo patient admitted to the hospital for total knee replacement. Patient's pertinent PMHx includes diverticulitis, dizziness, OA, hypothyroid, paroxysmal ventricular tachycardia, glaucoma, htn, blood clots. Patient's impairments as related to Physical Therapy include decreased strength/endurance, impaired balance, functional mobility and self care performance. Patient may benefit from Home/Outpatient Physical Therapy in order to continue to progress functional mobility and ADL skills. Patient has adequate support and social structure for reasonably safe discharge home at current level. Patient Disposition at Start of Session: Supine in Bed;Call [facility] in Reach;Bed Alarm Patient Disposition at End of Session: OOB in Chair;Call [facility] in Reach (nursing notified) Tolerated Full Session Physical Therapy Problem List: Decreased Activity Tolerance;Decreased Range Of Motion;Decreased Strength;Functional Mobility Impairment Patient /Caregiver Goals: Go Home Goals for Plan of Care: Able to perform HEP with: Independent Rolling with: Independent Transfer supine to/from sit with: Contact Guard Assistance Transfer sit to/from stand with: Contact Guard Assistance Ambulate with: Contact Guard Assistance Distance: 25 Device: Wheeled Walker Ambulate up and down steps with: Stand By Assistance Number of steps: 3 Device: Rail;Crutch(es) Progress Toward Goals: Progressing as expected Rehab Potential: Good PLAN: Treatment Frequency (times per week): 7;BID Current admission Treatment Interventions: Functional Mobility Training;Strengthening;Joint Mobility Plan of Care developed with: Patient TREATMENT INTERVENTIONS: Therapy Diagnosis: Difficulty walking-musculoskeletal (s/p TKR left knee) Interventions Provided: Evaluation;Therapeutic Exercise (42813);Therapeutic Activity (49814) $ Evaluation-Low (46254) Billed Units: 1 unit Therapeutic Exercise (94780) Treatment Minutes: 15 1 unit Skilled Intervention(s): Instruction in therapeutic exercise quad sets, glut sets, ankle pumps, heel slides, SLR, SAQ or LAQ: 10x1 each Therapeutic Activity (24950) Treatment Minutes: 10 1 unit Skilled Intervention(s): Instructed patient in supine to sit pushing with upper extremities to sit up Instruction in sit to and from stand technique with proper hand placement and body positioning at edge of bed/chair Education with keeping knee extended when sitting. Total Timed Code Treatment Minutes: 25 Total Treatment Time (minutes): 45 FUNCTIONAL G CODE: PT 6 Clicks Score: 17 (06/03/18899) Mobility: Walking and Moving Around Current Status (G8978): CK (06/03/18899) Mobility: Walking and Moving Around Goal Status (G8979): CK (06/03/18899) Based on clinical assessment and the score on the 6 Clicks Functional Assessment Tool, the G code and corresponding severity modifiers are documented above. Physician signature certifies treatment plan of care established above for the period of 06/03/2018 through 06/17/2018. SUBJECTIVE: Current Hospital Course: Chart reviewed and no significant medical updates relevant to therapy were noted Reason for Physical Therapy Consult : post op care: post op TKR left knee Relevant Past Medical History: refer to [facility] Patient Report: Willing to participate in physical therapy session. Home Environment Patient Lives With: Spouse Assistance Available: 24 Hour Entry To Home: Stairs Number Of Stairs Into Home: 3 Number Of Stairs To Bed/Bath: 0 Tub/Shower Type: walk in shower Laundry: n/a spouse will do laundry Equipment Owned: Wheeled Walker;Shower Chair;Crutch(es) Prior Functional Level: Within Functional Limits OBJECTIVE: CURRENT FUNCTIONAL STATUS: Current Functional Mobility Assist Level Additional Information Rolling Minimal Assistance Supine to Sit Minimal Assistance Sit to Supine Scooting Minimal Assistance Sit to Stand Minimal Assistance Stand to Sit Minimal Assistance Bed to Chair Minimal Assistance Bed To Chair Transfer Type: Stand Pivot Bed To Chair Transfer Equipment: Wheeled Walker Toilet/Commode Gait Minimal Assistance Gait Device: Wheeled Walker Gait Distance (feet): 2 Stairs Curb Step Car Transfer General Gait Deviations: Step length decreased Please see discipline specific clinical documentation flowsheet for complete details for this therapy evaluation/treatment. SIGNATURE: Kali Hernandez PT PATIENT NAME: Dimitris Ochoa DATE: June 03, 2018 TIME: 10:08 AM PROGRESS Observed: 06/03/2018 Status: COMPLETED Source: [facility] 7:43 AM CLINIC OTHER CAMPUS REPOSITORY HNO ID: [id number] Author: Zaheer Mir Service: Orthopaedic Surgery Author Type: Physician Type: Progress Notes Filed: 06/03/2018 7:48 AM Note Text: ORTHOPAEDIC POSTOP PROGRESS NOTE SERVICE DATE: 06/03/2018 SERVICE TIME: 7:43 AM Subjective Patient states that they are comfortable Well Controlled knee(s) pain. Mild incisional pain. Urinary retention overnight requiring straight cath x 1. Able to spontaneously void this AM. Objective VITAL SIGNS: BP 129/66 Pulse (!) 54 Temp 36.6 ?C (97.9 ?F) (Oral) Resp 16 Ht 193 cm (6' 4) Wt (!) 146.9 kg (323 lb 13.7 oz) SpO2 96% BMI 39.42 kg/m? INTAKE AND OUTPUT: Intake/Output Summary (Last 24 hours) at 06/03/18 0743 Last data filed at 06/03/18 0728 Gross per 24 hour Intake 4037 ml Output 205 ml Net 3832 ml PHYSICAL EXAMINATION: Left Lower Extremity: Dorsalis pedis pulses palpable. Posterior tibial pulses palpable. Dorsi flexion 5/5. Plantar flexion 5/5. Extensor hallucis extension: 5/5. Sensory intact to light touch L1-S1. Dressing clean, dry and intact. Surgical site no drainage and Silverlon intact. Problem Review and Assessment: Patient monitored, no new events overnight. LABS: Recent Labs 06/03/18 0509 HB 13.2 HCT 41.4 DATA: Diagnostic tests reviewed for today's visit: Most recent labs and imaging results. 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 and Other Lower Urinary Tract Symptoms (Luts) Atrial Fibrillation (Hcc) Obesity, Class Iii, Bmi 40-49.9 (Morbid Obesity) (Hcc) Mixed Hyperlipidemia Unspecified Gastritis and Gastroduodenitis Without Mention of Hemorrhage Osteoarthrosis, Unspecified Whether Generalized Or Localized, Other Specified Sites Essential Hypertension Bladder Neck Obstruction H/O: Hematuria Hypothyroidism Umbilical Hernia Without Mention of Obstruction Or Gangrene Paroxysmal Supraventricular Tachycardia (Hcc) Atherosclerosis of Coronary Artery of [place] Heart Without Angina Pectoris Other Pulmonary Embolism and Infarction Heel Spur Hypercholesterolemia Imaging Abnormality Anticoagulated On Coumadin Primary Osteoarthritis of Left Knee Arthritis of Knee Medication and Non-Pharmacologic VTE Prophylaxis/Anticoagulants Anticoagulant AND Antiplatelet Medications Start Dose Route Frequency Ordered Stop 06/03/18 0900 enoxaparin 30 mg injection (LOVENOX) (Orthopedic High Risk ) 30 mg SUBCUTANEOUS EVERY 12 HOURS 06/02/18 1558 -- 06/02/18 1700 warfarin 7.5 mg tab(s) (COUMADIN) 7.5 mg ORAL DAILY - WARFARIN 06/02/18 1558 -- 06/02/18 0000 enoxaparin (LOVENOX) 40 mg/0.4 mL syrg 40 mg SUBCUTANEOUS DAILY 06/02/18 1240 06/16/18 2359 06/02/18 1600 pneumatic compression stockings (hi,oh) VTE Prophylaxis: VTE prophylaxis appropriate POST OPERATIVE COMPLICATIONS: Complicated by: uneventful/none Zaheer Mir MD Adult Reconstruction Fellow Dept of Orthopaedic Surgery Pager: [phone] 06/03/2018 7:48 AM ETX#[id number] CBC Collected: 06/03/2018 Status: F Source: [facility] 5:09 AM CLINIC OTHER CAMPUS REPOSITORY TYPE CODE TESTS RESULT OUT OF REFERENCE UNITS RANGE LAB WBC 3.70-11.00 k/uL WBC High 11.66 LAB RBC 4.20-6.00 m/uL RBC 4.46 LAB HGB 13.0-17.0 g/dL Hemoglobin 13.2 LAB HCT 39.0-51.0 % Hematocrit 41.4 LAB MCV 80.0-100.0 fL MCV 92.8 LAB MCH 26.0-34.0 pG MCH 29.6 LAB MCHC 30.5-36.0 g/dL MCHC 31.9 LAB RDWCV 11.5-15.0 % RDW-CV 14.6 LAB PLTCT 150-400 k/uL Platelet Count 211 LAB MPV 9.0-12.7 fL MPV 12.0 Performed By: #### CBC, PT, BMP #### [facility] [address] [facility] [phone] PROTIME Collected: 06/03/2018 Status: F Source: [facility] 5:09 AM [facility] OTHER CAMPUS REPOSITORY TYPE CODE TESTS RESULT OUT OF RANGE REFERENCE UNITS LAB PSEC 9.7-13.0 sec PT Sec 11.0 LAB INR 0.9-1.3 PT INR 1.1 Result Comment: Vitamin K Antagonist (VKA) Therapeutic Range: INR 2 to 3 (Target INR of 2.5) Note: For patients treated with VKA drugs, such as warfarin, the [place] [employer] 2012 Guideline recommends a therapeutic INR range of 2 to 3 (target INR of 2.5). This recommendation includes high-risk patients with antiphospholipid syndrome with previous arterial or venous thromboembolism, current-generation mechanical or bioprosthetic aortic heart valve replacement. Note: Patients with mechanical aortic valve replacement and additional risk factors for thromboembolic events (atrial fibrillation, previous thromboembolism, LV dysfunction, hypercoagulable conditions) or an older generation mechanical AVR (i.e., ball in-Cage) or any mechanical MVR should have a INR therapeutic range of 2.5 to 3.5 (target INR of 3). Justin GH, et al. Chest 2012, 141:7S-47S Carole RA, et al. [facility] 2017, 70: 252-289 Performed By: #### CBC, PT, BMP #### [facility] [address] [phone] BASIC METABOLIC PANL Collected: 06/03/2018 Status: F Source: [facility] 5:09 AM [facility] OTHER [place] REPOSITORY TYPE CODE TESTS RESULT OUT OF REFERENCE UNITS RANGE LAB GLU 74-99 mg/dL High Glucose 134 Result Comment: The [place] [employer] (ADA) provides guidance for cutoff values for fasting glucose and random glucose. The ADA defines fasting as no caloric intake for at least 8 hours. Fas ting plasma glucose results between 100 to 125 mg/dL indicate increased risk for diabetes (prediabetes). Fasting plasma glucose results greater than or equal to 126 mg/dL meet the criteria for diagnosis of diabetes. In the absence of unequivocal hyperglycemia, results should be confirmed by repeat testing. In a patient with classic symptoms of hyperglycemia or hyperglycemic crisis, random plasma glucose results greater than or equal to 200 mg/dL meet the criteria for diagnosis of diabetes. Reference: Standards of Medical Care in Diabetes 2016, [place] [employer]. Diabetes Care. 2016.39(Suppl 1). LAB BUN 9-24 mg/dL BUN 21 LAB CRET 0.73-1.22 mg/dL Creatinine 1.07 LAB NA 136-144 mmol/L Sodium 137 LAB K 3.7-5.1 mmol/L Potassium 4.2 LAB CL 97-105 mmol/L Chloride 102 LAB CO2 22-30 mmol/L CO2 24 LAB AGAP 9-18 mmol/L Anion Gap 11 LAB CA 8.5-10.2 mg/dL Calcium, Total 9.0 LAB GFRAA eGFR- Amer. >60 LAB GFRNAA . eGFR-All Other Races >60 Result Comment: eGFR (Estimated GFR) Units of measure: mL/min/1.73 meters squared eGFR is derived from the reexpressed MDRD Study equation using the following parameters: serum creatinine, age, gender and race. The creatinine assay has been calibrated to be traceable to IDMS. An eGFR <60 mL/min/1.73m2 for >3 months is consistent with chronic kidney disease. Refer to KDOQI guidelines for clinical interpretation. In patients with unstable renal function, e.g. those with acute kidney injury, the eGFR may not accurately reflect actual GFR. Performed By: #### CBC, PT, BMP #### [facility] [address] [phone] CNCO Observed: 06/03/2018 Status: COMPLETED Source: [facility] 12:00 AM [facility] REPOSITORY Letter Text June 03, 2018 Dimitris Ochoa [address] [place] [address] Dear Wolf Gabriela, The nurses and staff of [facility] hope this letter finds you feeling well and progressing in your recovery. Our staff would like to thank you for trusting and choosing us for your health care needs. It was an honor for us to provide your nursing care. We know that placing our Patients First and maintaining a culture of continuous improvement each and every day, are essential to the success of our organization. I hope your stay with us has been positive. We want to hear from you. If you have any comments, questions or concerns about your hospital stay, please feel free to contact me, Geeta Miles RN ([phone]) or email me at, [email or web address] Additionally, you will receive a survey in the mail asking you to rate the care you received while in the hospital. Please take the time to complete and send back the survey, as it is essential to our continued success. I personally review all the results and would appreciate your feedback. Thank you in advance for your participation and thank you for choosing the [facility] for your health needs. Sincerely, Nurse Welt Edge Rounder: Geeta Miles RN ([phone]) [facility] Unit: [address] Letter Text June 06, 2018 Dimitris Marcial Ochoa [address] [place] [address] Dear Mr. Ochoa, Thank you for choosing [facility] for your medical care. To help reduce healthcare costs, it is important for us to collect co-payments at the time of service. We are sorry we missed you when you were here on 06/02/2018. According to your insurance company, you are responsible for a co-payment of $250.00. Please mail your check or money order, payable to [facility] along with the stub below, in the enclosed envelope. If you would like to pay with your credit card, please call [phone] for assistance. Again, thank you for choosing [facility]. Sincerely, Kei Delgado Patient Airbrush Artist Photography Please detach and return in the enclosed envelope. Patient Name: Dimitris Ochoa EMPI Number: [id number] Date of Service: 06/02/2018 Co-Pay Due: $250.00 Amount Enclosed: $ .__ Please make checks payable to [facility]. NURSING PROG Observed: 06/02/2018 Status: COMPLETED Source: [facility] 11:04 PM [facility] REPOSITORY HNO ID: [id number] Author: Marilyn (Rn) MOIZ Seaman Service: (none) Author Type: Registered Nurse Type: Nursing Progress Note Filed: 06/02/2018 11:07 PM Note Text: Nursing Progress Note Patient Name: Dimitris Ochoa Patient Location: [place] [id number] Daily Note: Pt states they have been unable to void since knee surgery. Bladder scan at 2200 showed 346 ml of urine being retained. Straight cath'd the pt and they had a urine output of 275 ml. Pt tolerated this procedure well. This note was completed by: Marilyn Seaman RN CNDS Observed: 06/02/2018 Status: COMPLETED Source: [facility] 4:56 PM [facility] REPOSITORY HNO ID: [id number] Author: Zaheer Mir Service: Orthopaedic Surgery Author Type: Physician Type: Discharge Summaries Filed: 06/03/2018 3:37 PM Note Text: PATIENT DISCHARGE SUMMARY C O N F I D E N T I A L I N F O R M A T I O N The following is a brief overview of your hospitalization. Some of the information contained on this summary may be confidential. This information should be kept in your records and should be shared with your regular doctor. These instructions explain what you or your patient care secretary need to do to continue your care at home or at another healthcare facility ? Please go over these instructions with your nurse and patient care secretary. ? If you are not sure about something, please ask. 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 (Morbid Obesity) (Hcc) Mixed Hyperlipidemia Unspecified Gastritis and Gastroduodenitis Without Mention of Hemorrhage Osteoarthrosis, Unspecified Whether Generalized Or Localized, Other Specified Sites Essential Hypertension Bladder Neck Obstruction H/O: Hematuria Hypothyroidism Umbilical Hernia Without Mention of Obstruction Or Gangrene Paroxysmal Supraventricular Tachycardia (Hcc) Atherosclerosis of Coronary Artery of Solomon Heart Without Angina Pectoris Other Pulmonary Embolism and Infarction Heel Spur Hypercholesterolemia Imaging Abnormality Anticoagulated On Coumadin Primary Osteoarthritis of Left Knee Arthritis of Knee Obesity, Class II, Bmi 35-39.9 OPERATIONS PERFORMED: Procedure(s): ARTHROPLASTY REPLACE JOINT TOTAL KNEE My Doctors and Medical Team: ? My Main Hospital Doctor: Doctor Wilner Chew PHYSICAL EXAM: See daily progress note Vitals: BP 117/79 Pulse (!) 54 Temp 36.3 ?C (97.3 ?F) (Axillary) Resp 20 Ht 193 cm (6' 4) Wt (!) 146.9 kg (323 lb 13.7 oz) SpO2 96% BMI 39.42 kg/m? SUMMARY OF WHAT HAPPENED WHILE YOU WERE IN THE HOSPITAL: You were?followed by?Dr. Chew?in clinic for osteoarthritis of left knee.??It was determined you?would benefit from left total knee arthroplasty. The procedure, its risks, benefits, and potential complications were discussed in detail with you prior to surgery. You conveyed understanding of all topics and consented to?surgery.?The patient was admitted to the hospital. Underwent an elective left total knee arthroplasty on 06/02/[address] Chew. The patient tolerated the procedure well and was returned to the Post Anesthesia Care Unit in stable condition. Vital signs per PACU protocol. VTE risk assessment performed. O2 therapy monitored by Respiratory Therapy to include incentive spirometry, ADL, wound and support per physician order set postop protocol. PT and OT to evaluate and treat. IVantibiotics, antiemetics, Lovenox for DVT prophylaxis and pain medication were given. The patient progressed with physical therapy. Lab values and vital signs were monitored and remained stable. The incision remained clean, dry and intact. Thigh and calf are not swollen. No signs of DVT or infection. The patient progressed with physical therapy towards goal of safety and independence. Patient was determined safe for discharge to home on post-operative day 1. TREATMENT / WOUND CARE: If you have any concerns about your wound, please contact the office. Keep wound and incision area clean and dry. You may remove your dressing on POD #7-10. If it remains drainage-free, you may leave the dressing off, keeping the wound open to air. If there is any drainage please reapply a new dressing you were given on discharge and call the office. You may not submerge the wound under standing water for 6 weeks time after surgery (i.e. no baths, no hot tubs, no swimming pools). Do not rub the wound, but rather pat dry. If you have non-absorbable sutures in place, these will be taken out approximately 14-21 days from the time of surgery on your follow-up appointment. Observe the wound for signs of infection, including increased redness, swelling, or persistent drainage around the incision site. It is normal for your wound to be warmer immediately after surgery (even up to 4-6 weeks after surgery). If you begin to experience fevers, chills, night sweats, or flu-like symptoms and your wound shows signs concerning for wound infection, please call the orthopaedic office immediately, or go to the Emergency Department without delay. SUPPLIES OR EQUIPMENT NEEDED: None PHYSICAL THERAPY: Physical Therapy is very important to your recovery. Below are the directions to give to your therapist upon your first appointment. ACTIVITY AFTER DISCHARGE: Rest for the remainder of the day after discharge from hospital. After discharge from the hospital, go directly home and limit your activities. Traveling for extended periods of time after your surgery is not recommended. Continue ankle pumps Weight Bearing As Tolerated WEIGHT BEARING STATUS: Weight Bearing As Tolerated DIET: There are no dietary restrictions. Resume your regular diet as tolerated and At all times, drink plenty of liquids in order to avoid dehydration PAIN CONTROL: Apply a covered cold pack to the area. Please call the doctor's office 48 hours prior to running out of pain medication if you feel you need a refill. For constipation, use over the counter stool softeners/laxatives. Discharge Pain Medications You will be given a prescription for pain medication. You should start taking this the same day after your surgery. Wean off as tolerated. Do not wait to take the pain medication until the pain is severe, as it will be difficult to catch up once this occurs. The pain medication usually reaches its full effect approximately 1 hour after ingesting. ? If you have been sent home on Valium, this medication works well for muscle spasms. ? If you have been sent home on Colace, this medication should be taken until you are off all narcotic (i.e. Vicodin, Percocet, Oxycodone, etc) pain medications, in order to prevent constipation. ? If you have been sent home on Iron pills, please take this course until the pills are completed. These aid with helping to return your blood counts to your baseline levels following your surgery. Percocet and Vicodin have Tylenol in their ingredient lists. You must be careful not to exceed 4,000mg (4 grams) of Tylenol, from all sources, within a single 24-hr period. This means that you may not take more than 12 Percocets or no more than 8 Vicodins within a 24-hr period. Do NOT take Regular or Extra Strength Tylenol when taking your Percocet or Vicodin medications. Some common side effects of the narcotic pain medications (Percocet, Oxycodone, Vicodin, etc) include nausea and itching. Benadryl (diphenhydramine) is a great over the counter medication that helps calm your stomach, decreases your anxiety levels, and minimizes the itching. You can easily purchase this at your local pharmacy as an awud-cwz-anrxelb medication. Please abide by the instructions as printed on the bottle. If your nausea persists, make sure to take small amounts of crackers or other combustion analyst foods. Medication List START taking these medications enoxaparin 40 mg/0.4 mL Syrg Commonly known as: LOVENOX Inject 0.4 mL subcutaneously once daily for 14 days. HYDROcodone-acetaminophen 5-325 mg per tablet Commonly known as: NORCO Take 1-2 tablets by mouth every 4 hours as needed for Pain for up to 7 days. CONTINUE taking these medications ADULT ASPIRIN EC LOW STRENGTH 81 mg EC tablet Generic drug: aspirin, enteric coated Take one(1) tablet daily. ezetimibe 10 mg tablet Commonly known as: ZETIA Take 1 tablet by mouth once daily. hydroCHLOROthiazide 25 mg tablet Commonly known as: HYDRODIURIL, ESIDRIX TAKE ONE-HALF (1/2) TABLET DAILY KLOR-CON 10 10 mEq tablet Generic drug: potassium chloride Take one(1) tablet daily. levothyroxine 88 mcg tablet Commonly known as: SYNTHROID TAKE 1 TABLET ONCE DAILY (ADD ONE-HALF (1/2) TABLET ONCE WEEKLY TOTAL SEVEN AND ONE-HALF (1/2) TABLETS PER WEEK metoprolol succinate ER 25 mg 24 hr tablet Commonly known as: TOPROL XL Take 1 tablet by mouth once daily. moexipril 15 mg tablet Commonly known as: UNIVASC TAMBOCOR 100 mg tablet Generic drug: flecainide take one (1) tablet twice a day warfarin 5 mg tablet Commonly known as: COUMADIN TAKE 1 TABLET ON TUESDAY AND TUESDAY AND TAKE ONE AND ONE- HALF TABLETS (7.5 MG) ALL OTHER DAYS OR DIRECTED XALATAN 0.005 % ophthalmic solution Generic drug: latanoprost Take as directed STOP taking these medications nabumetone 500 mg tablet Commonly known as: RELAFEN Where to Get Your Medications Information about where to get these medications is not yet available Ask your nurse or doctor about these medications ? enoxaparin 40 mg/0.4 mL Syrg ? HYDROcodone-acetaminophen 5-325 mg per tablet DENTAL: You will need to take an antibiotic before having any dental procedures. Please call the office at least a week before having any procedures done so we can send you the prescription for the antibiotic. HOMEGOING BLOOD CLOT (DVT) PREVENTION: Resume Coumadin with Lovenox bridge PENDING RESULTS: No pending results. PATIENT EDUCATIONAL MATERIALS: No Materials given Discharge plan and additional instructions will be given to patient/family by nursing staff. FOLLOW UP: Future Appointments Date Time Provider Department Center 07/04/2018 9:30 AM Amor Bustos (Pa) [facility] 08/07/2018 8:40 AM Fartun RAJAN [facility] ANES POST Observed: 06/02/2018 Status: COMPLETED Source: [place] 3:40 PM [facility] OTHER CAMPUS REPOSITORY HNO ID: [id number] Author: Red Naranjo Service: Anesthesiology Author Type: Anesthesiologist Type: Anesthesia PostOp Filed: 06/02/2018 3:41 PM Note Text: POST ANESTHESIA EVALUATION NOTE SERVICE DATE: 06/02/2018 SERVICE TIME: 3.40 : 1947 Vitals: 06/02/18 1041 06/02/18 1454 Temp: 36 ?C (96.8 ?F) 36.3 ?C (97.3 ?F) 06/02/18 1454 06/02/18 1500 06/02/18 1515 06/02/18 1530 BP: 113/74 118/76 119/77 124/78 06/02/18 1454 06/02/18 1500 06/02/18 1515 06/02/18 1530 Pulse: (!) 54 (!) 53 (!) 51 (!) 48 06/02/18 1454 06/02/18 1500 06/02/18 1515 06/02/18 1530 Resp: 16 16 16 16 06/02/18 1454 06/02/18 1500 06/02/18 1515 06/02/18 1530 SpO2: 92% 94% 95% 95% Validated Vital Signs: Yes POST ANES STATUS: No apparent anesthetic complications. The patient is appropriately hydrated with stable respiratory and cardiovascular status. Patient has safe and adequate airway control. The patient has appropriate pain relief and no significant post operative nausea or vomiting. The patient has achieved baseline mental status. Intra-Operative Events: No Significant Anesthesia Events Further assessment by Anesthesia Service: None Other Remarks: SIGNATURE: Red Naranjo MD PATIENT NAME: Dimitris Ochoa DATE: June 02, 2018 TIME: 3:40 PM PAGER/CONTACT #: anesthesia NURSING PROG Observed: 06/02/2018 Status: COMPLETED Source: [place] 3:33 PM [facility] OTHER [place] REPOSITORY HNO ID: [id number] Author: Jennifer KeyRn) MOIZ Esteves Service: (none) Author Type: Registered Nurse Type: Nursing Progress Note Filed: 06/02/2018 3:34 PM Note Text: Pt HR drops to 40s at times, pt unsymptomatic. Pt bp stable. Made Dr. Eastman aware, no orders written at this time. SURGICAL PATHOLOGY Observed: 06/02/2018 Status: F Source: [place] 2:15 PM CLINIC OTHER CAMPUS REPOSITORY Specimen originated from [facility] Specimen #: [id number] Submitting Physician: Wilner Chew M.D. FINAL DIAGNOSIS Knee, left, arthroplasty - Degenerative joint disease. Gilbert Miller MD (Electronic Signature) SPECIMEN SUBMITTED A: LEFT KNEE BONE CLINICAL DATA PRIMARY LOCALIZED OSTEOARTHRITIS OF LEFT KNEE GROSS DESCRIPTION A. Received in formalin labeled as left knee bone are multiple segments of bone and cartilage aggregating to approximately 14.0 x 10.5 x 2.5 cm. One portion is recognizable as tibial plateau and shows eburnation and roughening of the articular surfaces. Separate segments consist of a femoral condyle which also show cartilage eburnation and roughening. Minimally attached soft tissue is appreciated. Technical Account Representative sections are submitted in the following cassettes: A1 soft tissue, A2 bone following decalcification. TN/dss 06/05/2018 Gross [facility] [id number] Date of Report: 06/08/2018 Date of Procedure: 06/02/2018 Date of Receipt: 06/02/2018 Submitted by: Wilner Chew M.D. Location: [address] [place] [address] Diagnostic interpretation performed at [facility], [address] [id number]. Performed By: #### PATHS #### [employer] [address] [place] [address] [phone] OPERATIVE NO Observed: 06/02/2018 Status: COMPLETED Source: [place] 1:59 PM CLINIC OTHER CAMPUS REPOSITORY HNO ID: [id number] Author: Wilner Chew Service: Orthopaedic Surgery Author Type: Physician Type: Operative Report Filed: 06/05/2018 9:03 AM Note Text: [facility] OPERATIVE REPORT PATIENT NAME: Dimitris Ochoa CSN: [id number] LOG ID: [id number] Surgery Date: 06/02/2018 Surgeon(s) and Ciso(s): Surgeon(s) and Role: * Wilner Chew - Primary * Chris Sabillon - Fellow No qualified orthopedic resident available BMI: Estimated body mass index is 39.42 kg/m? as calculated from the following: Height as of this encounter: 193 cm (6' 4). Weight as of this encounter: 146.9 kg (323 lb 13.7 oz). Procedure(s): Procedure(s) (LRB): ARTHROPLASTY REPLACE JOINT TOTAL KNEE (Left) Anesthesia: Spinal Incision Start: 1:09 PM Incision Stop: 2:43 PM Attestation: I was present for all of the critical portions of the operation and performed all critical portions. The fellow/PA assisted during exposure, implantation of the device, and deep closure. The PA /fellow performed the closure of the subcutaneous tissue and skin. I was scrubbed from skin incision through the closure of the extensor mechanism and was immediately available for the duration of the entire case. Preop Diagnosis: Pre-Op Diagnosis Codes: * Primary localized osteoarthritis of left knee [M17.12] Postop Diagnosis: Same as Pre-Op Diagnosis Codes: * Primary localized osteoarthritis of left knee [M17.12] Implants: Implant Name Type Inv. Item Serial No. Career Services Coordinator Lot No. LRB No. Used CEMENT SIMPLEX P BONE RADIOPAQUE FULL DOSE STERILE - [id number] Cement / Putty CEMENT SIMPLEX P BONE RADIOPAQUE FULL DOSE STERILE STRY/[employer] [id number] Left 1 CEMENT SIMPLEX P BONE RADIOPAQUE FULL DOSE STERILE - [id number] Cement / Putty CEMENT SIMPLEX P BONE RADIOPAQUE FULL DOSE STERILE [employer] [id number] Left 1 INSERT TRIATHLON 8 X3 9MM TIBIAL CRUCIATE RETAINING KNEE - [id number] Joint - Knee INSERT TRIATHLON 8 X3 9MM TIBIAL CRUCIATE RETAINING KNEE [employer]Y/[employer] [id number] Left 1 COMPONENT TRIATHLON 8 FEMORAL CRUCIATE RETAIN CEMENTED KNEE LEFT - [id number] Joint - Knee COMPONENT TRIATHLON 8 FEMORAL CRUCIATE RETAIN CEMENTED KNEE LEFT [employer] [id number] Left 1 BASEPLATE TRIATHLON 8 TIBIAL PRIMARY CEMENT KNEE - [id number] Joint - Knee BASEPLATE TRIATHLON 8 TIBIAL PRIMARY CEMENT KNEE [employer] [id number] Left 1 COMPONENT TRIATHLON 40MM X3 11MM PATELLAR ASYMMETRIC KNEE - [id number] Joint - Knee COMPONENT TRIATHLON 40MM X3 11MM PATELLAR ASYMMETRIC KNEE [employer] [id number] Left 1 Problem List: 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 and Other Lower Urinary Tract Symptoms (Luts) Atrial Fibrillation (Hcc) Obesity, Class Iii, Bmi 40-49.9 (Morbid Obesity) (Hcc) Mixed Hyperlipidemia Unspecified Gastritis and Gastroduodenitis Without Mention of Hemorrhage Osteoarthrosis, Unspecified Whether Generalized Or Localized, Other Specified Sites Essential Hypertension Bladder Neck Obstruction H/O: Hematuria Hypothyroidism Umbilical Hernia Without Mention of Obstruction Or Gangrene Paroxysmal Supraventricular Tachycardia (Hcc) 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 Non-operative treatment has been attempted but has not improved or controlled the symptoms and pain that occurs during normal daily activities. Knee motion has also become limited and is restricting the patient. Total knee arthroplasty was recommended. The risks, benefits and potential complications of the arthroplasty surgery were discussed with the patient in detail. Specific details of the surgical procedure, hospitalization, recovery, rehabilitation, and long-term precautions were also presented. Pre-operative teaching was provided. Implant/prosthesis selection was outlined, and the many options available were explained; the final choice will be made at the time of the procedure to match the anatomy and condition of the bone, ligaments, tendons, and muscles. We discussed my relationship with [employer] and that I receive royalty payments from [employer] for technology I developed was fully disclosed. A [employer] product may be used in this care I provide. I do not receive any money for products that I or any other [facility] physicians prescribe or use. My choice on which product to use in this care was not influenced by my relationship with [employer]. I select the product that in my hands is believed to be the best option for treatment. The patient was evaluated medically for pre-operative optimization, and risk assessment. Audra-operative blood management and the potential for blood transfusion were discussed with risks and options clearly outlined. Understanding of all topics was conveyed to me by the patient pre-operatively, and patient consent was given to proceed with the left total knee replacement. OPERATIVE PROCEDURE: The patient was identified and brought into the Operating Room by the anesthesia and nursing teams. Anesthesia was successfully performed. The patient was then positioned supine on the operating room table, and all bony prominences were padded. Intravenous antibiotic prophylaxis dosing was confirmed. A tourniquet was applied to the upper thigh. A full knee exam was done after anesthesia was in full effect. The patient had developed a varus deformity in the knee from cartilage wear and bone loss. Flexion contracture was not present. The leg was prepped and draped in the usual sterile fashion. A surgical time-out was performed immediately preceding the incision with all personnel in the operating room; the patient identity was again confirmed, the correct knee surgical site and extremity were identified and confirmed, X-rays were reviewed, and availability of the appropriate surgical equipment was established. The knee was exsanguinated and exposed using an anterior-midline skin incision. Dissection was carried down through skin and subcutaneous tissue to the extensor mechanism with a scalpel. A median para-patellar arthrotomy was made to enter the knee space sharply. A large amount of normal appearing joint fluid was encountered and suctioned. The synovium was thickened, hypertrophic, and inflamed. A partial synovectomy was performed for exposure, and the medial and lateral gutters were cleared of scar and synovial reflections. The deep fibers of the medial collateral ligament was carefully elevated off the proximal 5-10 mm of tibial bone. The patella was then subluxed laterally. The knee was then flexed up to 90 degrees. Degenerative meniscal remnants were excised medially and laterally along with an excision of the patellar fat pad and anterior cruciate ligament. Assessment of the knee joint revealed severe end-stage articular cartilage damage. Retractors were then placed to protect the medial and lateral collateral ligament attachments on the distal femur. The intramedullary cavity of the femur was entered through the intra-condylar notch above the PCL with a step drill. The entry hole was overdrilled as compared to the intramedullary minna diameter and the femoral canal was suctioned to prevent fat embolization. An intramedullary alignment system was then placed, fixed to the femur with pins, and the distal femoral osteotomy was made in 7 degrees of valgus with an 8 mm distal resection off the intact femoral condyle. The femoral component was then sized in the AP dimension followed by ML size verification to prevent component overhang. The 4-in-1 cutting block was then placed to allow for equal posterior condylar resections taking into account the extent of posterior condylar wear. Once the 4-in-1 block was pinned [address], the anterior, posterior, and chamfer cuts were then fashioned with an oscillating saw. Remaining osteophytes were then removed with a rongeur. The patella was then measured and a patellar resection of 9-10 mm was carried out. The patella diameter was sized according to best fit and the drill holes were placed for the asymmetric patellar peg pattern. Attention was then turned to the tibia. Retractors were placed medially and laterally to protect the collateral ligaments. Using extra medullary alignment, including a pivoting drop minna to reduce parallax in the varus valgus plane, a proximal tibial cut was carried out at 0 - 2? of varus and 3? of posterior slope. The appropriate tibial size was selected and the template was oriented along the lateral border of the tibia and rotationally to the middle one third of the patellar tendon attachment. The template was pinned into place and the punch was used to prepare the proximal tibia for a primary baseplate keel. Peripheral tibial osteophytes were removed as well as posterior femoral condylar osteophytes to enhance flexion. Trialing was carried out choosing a tibial trial thickness that allowed the knee to come into full extension and flexion to 130?. Mild ligamentous release was required for proper balancing. Excellent varus valgus stability was achieved throughout the range of motion. Femoral fixation holes were drilled prior to removing the trials ensuring proper position of the femoral component in regards to medial lateral translation. The bony surfaces were prepared with pulsatile lavage and thoroughly dried in preparation for cementing the final implants. Polymethylmethacrylate (PMMA) bone cement was utilized and the asymmetric patellar component was cemented into place along with the tibial baseplate. Suction was applied to an anterior tibial pinhole to help with cement penetration and avoid marrow contamination of the cement implant interface during component impaction. All excess cement was debrided from the wound and the tibial polyethylene insert was then impacted onto the tibial tray. Secure fixation was achieved. The femoral component was cemented into place again using intramedullary suction to aid with cement penetration. All excess cement was again debrided from the interfaces. Once the cement had cured, the knee was copiously irrigated and the tourniquet was let down. Hemostasis was achieved with electrocautery and patellar tracking was then inspected. The patella tracked midline. The extensor mechanism was closed with Surgilon interrupted sutures. Knee stability and range of motion with the capsule closed was excellent, and range of motion was 0 to 130 without excessive stress on the repair. Instrument and sponge count was completed and confirmed correct. The subcutaneous tissues were closed with Polysorb interrupted sutures, and the skin was closed with a running 4-0 Maxon subcuticular stitch. Steri-Strips were applied to the tag ends of the suture and Sureclose skin adhesive was applied to the skin incision with the knee in flexion. An Aquacell dressing was applied again with the knee in flexion, followed by a compressive wrap. The patient was then transferred to PACU. EBL: 100 cc COMPLICATIONS: none DRAINS: none SPECIMEN SENT TO PATHOLOGY: Distal femoral bone fragments, proximal tibial joint surface, posterior patellar bone/cartilage, and synovium. SIGNATURE: Wilner Chew MD DATE: June 02, 2018 TIME: 1:59 PM NURSING PROG Observed: 06/02/2018 Status: COMPLETED Source: [place] 11:32 AM [facility] OTHER CAMPUS REPOSITORY HNO ID: [id number] Author: Delfino Singleton) MOIZ Duque Service: Nursing Author Type: Registered Nurse Type: Nursing Progress Note Filed: 06/02/2018 11:33 AM Note Text: Dr. Eastman at bedside for Left adductor canal nerve block. RN at bedside, pt monitored throughout, BP 124/79 Pulse (!) 44 Temp 36 ?C (96.8 ?F) (Temporal Artery) Resp 18 Ht 193 cm (6' 3.98) Wt (!) 146.1 kg (322 lb) SpO2 98% BMI 39.21 kg/m? . Pt tolerated procedure without difficulty. PT ED Observed: 06/02/2018 Status: COMPLETED Source: [place] 10:55 AM [facility] OTHER CAMPUS REPOSITORY HNO ID: [id number] Author: Delfino (Rn) MOIZ Duque Service: Nursing Author Type: Registered Nurse Type: Patient Education Filed: 06/02/2018 10:55 AM Note Text: PRE OP LEARNING ASSESSMENT PROCEDURE/SURGERY: SURGERY: Left total knee replacement READINESS TO LEARN COGNITIVE ABILITY: Alert and oriented MOTIVATION TO LEARN: Eager FAMILY SUPPORT: High - Very involved in pt care PATIENT LEARNS BEST BY: Written Instruction - Hand-outs Verbal Instruction FACTORS AFFECTING LEARNING: None PHYSICAL LIMITATIONS AFFECTING LEARNING: None Electronically Signed By: Delfino Duque RN In Department: [facility] SURGERY PROTIME Collected: 06/02/2018 Status: F Source: [place] 10:49 AM [facility] OTHER CAMPUS REPOSITORY TYPE CODE TESTS RESULT OUT OF RANGE REFERENCE UNITS LAB PSEC 9.7-13.0 sec PT Sec 10.8 LAB INR 0.9-1.3 PT INR 1.1 Result Comment: Vitamin K Antagonist (VKA) Therapeutic Range: INR 2 to 3 (Target INR of 2.5) Note: For patients treated with VKA drugs, such as warfarin, the [employer] 2012 Guideline recommends a therapeutic INR range of 2 to 3 (target INR of 2.5). This recommendation includes high-risk patients with antiphospholipid syndrome with previous arterial or venous thromboembolism, current-generation mechanical or bioprosthetic aortic heart valve replacement. Note: Patients with mechanical aortic valve replacement and additional risk factors for thromboembolic events (atrial fibrillation, previous thromboembolism, LV dysfunction, hypercoagulable conditions) or an older generation mechanical AVR (i.e., ball in-Cage) or any mechanical MVR should have a INR therapeutic range of 2.5 to 3.5 (target INR of 3). Justin GH, et al. Chest 2012, 141:7S-47S Carole MANUEL et al. [facility] 2017, 70: 252-289 Performed By: #### PT #### [facility] [address] [place] [address] ANES PREOP Observed: 06/02/2018 Status: COMPLETED Source: [place] 10:45 AM CLINIC OTHER CAMPUS REPOSITORY O ID: [id number] Author: Gen Eastman Service: Anesthesiology Author Type: Anesthesiologist Type: Anesthesia PreOp Filed: 06/02/2018 10:45 AM Note Text: ANESTHESIOLOGY DAY OF SURGERY NOTE SERVICE DATE: 06/02/2018 SERVICE TIME: 10:45 AM : 1945 Procedure(s) (LRB): ARTHROPLASTY REPLACE JOINT TOTAL KNEE (Left) Surgeon(s): Wilner Chew Estimated body mass index is 39.21 kg/m? as calculated from the following: Height as of this encounter: 193 cm (6' 3.98). Weight as of this encounter: 146.1 kg (322 lb). 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 and Other Lower Urinary Tract Symptoms (Luts) Atrial Fibrillation (Hcc) Obesity, Class Iii, Bmi 40-49.9 (Morbid Obesity) (Hcc) Mixed Hyperlipidemia Unspecified Gastritis and Gastroduodenitis Without Mention of Hemorrhage Osteoarthrosis, Unspecified Whether Generalized Or Localized, Other Specified Sites Essential Hypertension Bladder Neck Obstruction H/O: Hematuria Hypothyroidism Umbilical Hernia Without Mention of Obstruction Or Gangrene Paroxysmal Supraventricular Tachycardia (Hcc) 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 Arana in past; currently Dr. Cates - [facility] - PAST MEDICAL HISTORY OF glaucoma - PM - PAST MEDICAL HISTORY OF blood clots in lungs AND legs - Sebaceous cyst - Unspecified essential hypertension - Unspecified hypothyroidism PAST SURGICAL HISTORY Procedure Laterality Date - APPENDECTOMY - COLONOSCOP W/ OR W/O [facility] SPEC 10/21/2006 Colonoscopy - PAST SURGICAL HISTORY OF 10/11/02 left carpal tunnel - PAST SURGICAL HISTORY OF cardiac ablation x 2 - PAST SURGICAL HISTORY OF Right carpal tunnel release - PAST SURGICAL HISTORY OF Bilateral cataract surgery - REPAIR UMBILICAL EDMUNDO,5+Y/O,REDUC 06/15/10 with mesh FAMILY HISTORY Problem Relation Age of Onset - Stroke Father - Hypertension Father - Hypertension Mother - Heart Paternal Uncle Social History: Social History Substance Use Topics - Smoking status: Former Smoker Packs/day: 1.50 Years: 4.00 Types: Cigarettes Quit date: 07/25/1971 - Smokeless tobacco: Never Used - Alcohol use Yes Comment: 2 drinks a month No current facility-administered medications on file prior to encounter. Current Outpatient Prescriptions on File Prior to Encounter: moexipril (UNIVASC) 15 mg tablet Take 15 mg by mouth once daily. hydroCHLOROthiazide (HYDRODIURIL, ESIDRIX) 25 mg tablet TAKE ONE-HALF (1/2) TABLET DAILY metoprolol succinate ER (TOPROL XL) 25 mg 24 hr tablet Take 1 tablet by mouth once daily. ezetimibe (ZETIA) 10 mg tablet Take 1 tablet by mouth once daily. latanoprost(XALATAN 0.005 % EYE DROPS) Take as directed potassium chloride(KLOR-CON 10 10 MEQ TAB) Take one(1) tablet daily. TAMBOCOR 100 MG TAB take one (1) tablet twice a day nabumetone (RELAFEN) 500 mg tablet TAKE 1 TABLET TWICE A DAY WITH MEALS aspirin(ADULT ASPIRIN EC LOW STRENGTH 81 MG TAB, DELAYED RELEASE) Take one(1) tablet daily. Current Facility-Administered Medications: lactated ringers infusion 50 mL/hr INTRAVENOUS CONTINUOUS Amor Bustos (Pa) clindamycin iv piggyback 900 mg in D5W 50 mL (CLEOCIN) 900 mg INTRAVENOUS Pre-Op Once Amor Bustos (Pa) tranexamic acid 1,000 mg in NaCl 0.9% 100 mL (CYKLOKAPRON) 1,000 mg INTRAVENOUS Pre-Op Once Amor Bustos (Pa) tranexamic acid 1,000 mg in NaCl 0.9% 100 mL (CYKLOKAPRON) 1,000 mg INTRAVENOUS ONCE Amor Bustos (Pa) acetaminophen 650 mg tab(s) (TYLENOL) 650 mg ORAL Pre-Op Once Gen Eastman celecoxib 200 mg cap(s) (CeleBREX) 200 mg ORAL Pre-Op Once Gen Eastman gabapentin 100 mg cap(s) (NEURONTIN) 100 mg ORAL Pre-Op Once Gen Eastman oxyCODONE ER 10 mg tab(s) (OxyCONTIN) 10 mg ORAL Pre-Op Once Gen Eastman midazolam (PF) 2 mg injection (VERSED) 2 mg INTRAVENOUS ONCE Gen Eastman Allergies: ALLERGIES Allergen Reactions - Levaquin [Levofloxa* Other: See Comments Reports nightmares - Lipitor [Atorvastat* Myalgia stopped by Dr. Cates - Lovastatin Other: See Comments muscle aches - Pravastatin Other: See Comments muscle aches - Simvastatin Other: See Comments muscle aches - Rwgqyao-Jyk-Srs Red* Myalgia tried them all - Ceftin [Cefuroxime] Diarrhea DOS EXAM: Adequate NPO status: Yes Anesthetic risks, benefits, alternatives, personnel and consent discussed: Yes Patient agrees to proceed: Yes Previous Anesthesia: No history of adverse event. Airway Assessment: MP 2; Neck ROM: Full ROM without neurologic symptoms; Airway Evaluation: No significant abnormalities Symptoms of Sleep Apnea: Snoring Dentition: Teeth intact Additional Physical Exam: Lungs: Patient health status unchanged since recent history and physical. See history and physical for exam findings. Cardiac: Patient health status unchanged since recent history and physical. See history and physical for exam findings. Additional Pertinent Findings: N/A Blood Products: Not anticipated for this procedure. Anesthetic Plan: General, Standard ASA Monitors, MAC with Sedation and Block with Sedation Pain Management Plan: Parenteral or Oral ASA Class: 3 Other Medical Problems: HTN- Rx HLD- Rx CAD H/o SVT, s/p ablation x 2 Atrial fibrillation- Rx, followed by rate marker Dr. Cates at [facility]. H/o DVT/PE (2005)- Rx Obese, BMI= 39 Hypothyroidism- Rx Left knee pain I have interviewed and examined the patient. I have reviewed the medical record and/or the pre-anesthesia evaluation, pertinent labs, and test results. Significant changes in the patient's condition since the History and Physical, not otherwise documented in primary service progress notes: No This contains updated information obtained within 48 hours of Surgery/Procedure. SIGNATURE: Gen Eastman MD PATIENT NAME: Dimitris Ochoa DATE: June 02, 2018 TIME: 10:45 AM CSN: [id number] CONSULT Observed: 06/02/2018 Status: COMPLETED Source: [place] 12:00 AM CLINIC OTHER CAMPUS REPOSITORY [facility] ID: [id number] Author: Ronnie Israel Service: General Internal Medicine Author Type: Physician Type: Consults Filed: 06/10/2018 8:34 PM Note Text: [facility]- Consultation DIMITRIS OCHOA : 1945 AGE: 73 SEX: M ACCTNUM: [id number] [facility]: [facility] LOCATION: [address] ATTENDING PHYSICIAN: WILNER CHEW DATE OF CONSULTATION: 06/02/2018 REASON FOR CONSULTATION: Postop medical management. HISTORY: This is a 73-year-old white gentleman whose significant medical history includes osteoarthritis, atrial fibrillation, provoked DVT and PE, obesity, hypothyroidism, hypertension, hyperlipidemia, and coronary artery disease. The patient underwent elective left total knee arthroplasty under spinal anesthesia. The patient had an uneventful intraoperative course. Expected blood loss 100 cc. During initial evaluation, the patient continued to have numbness of the lower extremities. He was denying any nausea, lightheadedness, dizziness, shortness of breath, or palpitation. PAST MEDICAL HISTORY: As mentioned above. PAST SURGICAL HISTORY: Includes cardiac ablation x2, carpal tunnel surgery, cataract surgery. FAMILY HISTORY: Positive for stroke and hypertension. SOCIAL HISTORY: He smoked fha-koe-reyo pack for 4 years, quit in 1971. He does drink 2 drinks a month. MEDICATIONS: His current home medication list reviewed. ALLERGIES: He is allergic to Levaquin, Lipitor, lovastatin, pravastatin, simvastatin, and Ceftin. All the statins cause muscle ache. REVIEW OF SYSTEMS: No history of TIA or CVA. He does have a history of glaucoma. No history of dysphagia or odynophagia. No history of chronic cough, wheezing, or dyspnea with exertion. No history of asthma or COPD. No history of congestive heart failure. He does have a history of cardiac arrhythmia. No history of bleeding peptic ulcer disease, hepatitis, or colitis. Claims good appetite. Regular bowel movement. Several night micturition. No history of recent urinary tract infection. No history of paresthesia of the feet. History of DVTs. PHYSICAL EXAM: General: On examination, elderly white gentleman. The patient is alert and oriented. HEENT: Sclerae anicteric. Oral mucosa dry. Neck: Good carotid pulse felt. No carotid bruit. No thyromegaly appreciated. Lungs: Clear to auscultation. Cardiovascular: S1, S2. Irregular. Abdomen: Soft, nontender, and nondistended. No mass felt. Obese. Lower Extremities: No ankle edema noted. IMPRESSION: 1. Osteoarthritis, status post left total knee arthroplasty. Deep venous thrombosis prophylaxis as ordered by Dr. Chew. 2. Atrial fibrillation. Restart Coumadin in a.m. and continue metoprolol and Tambocor. 3. Glaucoma. Continue his eye drops. 4. Hypertension. Continue moexipril and hydrochlorothiazide. Hold Relafen. 5. Hypothyroidism, on Synthroid. Thank you very much for kind referral. Continue to follow him while he is in the hospital. Ronnie Israel M.D. Internal Medicine PATRIC:[id number] NURSING PROG Observed: 05/23/2018 Status: COMPLETED Source: [place] 2:10 PM CLINIC OTHER CAMPUS REPOSITORY HNO ID: [id number] Author: Glenis (Rn) MOIZ Cordero Service: (none) Author Type: Registered Nurse Type: Nursing Progress Note Filed: 06/01/2018 6:54 AM Note Text: PACC Nurse Progress Note History AND Physical: PACC Visit Date: 05/22/2018 Original HANDP Date: 05/22/2018 ED visit Date: N/A Outside HANDP Scanned Date: N/A Labs Within Last 6 Months: CBC: Date 05/22/2018 WNL BMP/CMP: Date 05/22/2018 within acceptable limits for planned procedure HBA1C: Date 05/22/2018=5.6 UA: Date 05/22/2018 results in epic Urine C+S: Date 05/22/2018 no growth STAAMP: Date 05/22/2018= negative TYPE AND SCREEN: Date 05/22/2018 results in the medical center [place]: Date 05/22/2018 results in the medical center Iron, TIBC, Ferritin, B12, Folate, Reticulocyte count 05/22/2018 WNL Imaging Within Last 12 Months: X-ray Date of test: 01/05/2018 bilateral knee results in the medical center Cardiac Testing: EKG in last 12 Months: Yes: Date: pending, Comment: external EKG from 08/08/2017 found scanned in the medical center. Marked SB incomplete Left BBB awaiting cardiac risk assessment ECHO Date: 03/11/2018, Comment: results in the medical center Last Menstrual Period: LMP Date: N/A Postmenopausal >1yr: N/A, S/P Hysterectomy: N/A BMI Percentile (PEDS): BMI 39.21 Weight 322# Risk Assessment: Cardiac Date: with Dr. Matt Cates- letter sent CARDIAC RISK ASSESSMENT with Dr. Cates 05/30/2018 scanned in the medical center. Last OV with Dr. Cates 02/21/2018 found scanned in the medical center Patient received pre-op coumadin instructions from PCP Dr. Fitzpatrick, see message dated 05/18/2018, copied below MY Chart message 05/18/2018 No need to do Lovenox prior to surgery. Stop coumadin 5 days prior to surgery (so last dose of coumadin 05/27) and resume coumadin after surgery when surgeon says okay to resume it. Stay on Lovenox after surgery at least until INR is therapeutic (usually takes 3 to 7 days to get therapeutic after resuming usual dose of coumadin. ? If surgeon wants you to be on Lovenox longer than it takes to get herapeutic on coumadin for whatever reason, okay, but usually they are fine with stopping Lovenox when therapeutic on Coumadin. Anesthesia Review: N/A Narrative: N/A Pre-op Considerations: Per PACC HANDP history HTN- Rx HLD- Rx CAD H/o SVT, s/p ablation x 2 Atrial fibrillation- Rx, followed by rate marker Dr. Cates at [facility]. Cardiac risk assessment 05/30/2018 and Last OV 02/21/[address] Cates found scanned in the medical center H/o DVT/PE (2005)- Rx Last dose Coumadin 05/27/2018 per My Chart message in [facility] 05/18/[address] Fitzpatrick and confirmed with patient. Obese, BMI= 39.21 Weight 322# Hypothyroidism- Rx Left knee pain Chart Check: COMPLETED Glenis Cordero RN June 01, 2018 6:54 AM [facility] PCR Collected: 05/22/2018 Status: F Source: [place] 9:21 PM [facility] MAIN CAMPUS REPOSITORY TYPE CODE TESTS RESULT OUT OF REFERENCE UNITS RANGE LAB SAS Nasal S aureus Spec Source LAB MRSRES Negative for MRSA MRSA by PCR. PCR LAB SARES Negative for Staph Staphylococcus aureus PCR aureus by PCR. Performed By: #### SAPCR #### [facility] [address] [place], [place] [address] URINALYSIS WITH Collected: 05/22/2018 Status: F Source: [place] MICROSCOPIC 2:06 PM [facility] MAIN [place] REPOSITORY TYPE CODE TESTS RESULT OUT OF RANGE REFERENCE UNITS LAB UCOL Yellow Color Yellow LAB [facility] Clear Clarity Clear LAB UGLUC Negative mg/dL Glucose, Urine Negative LAB UBIL Negative Bilirubin, Urine Negative LAB UKET Negative Ketones, Urine Negative LAB USPG 1.005-1.030 Specific [place], Ur 1.016 LAB UHGB Negative Abnormal Hemoglobin/Blood, 1+ Alert Ur LAB UPH 4.5-8.0 pH 5.0 LAB UPROT Negative mg/dL Protein, Urine Negative LAB UUROB Normal Urobilinogen Normal LAB UNITR Negative Nitrites Negative LAB ULKEST Negative Leukest Negative LAB UCOM Comments SEE COMMENT Result Comment: N/A LAB UMCOM Urine SEE [place] Comment COMMENT Result Comment: N/A LAB UWBC 0-5 /HPF WBC 0-5 LAB URBC 0-3 /HPF Abnormal Alert RBC 6-10 Performed By: #### UAWMIC #### [facility] [employer] [place], [place] [address] Observed: 05/22/2018 Status: F Source: [place] URINE CULTURE 2:06 PM [facility] REPOSITORY Sp. Request/Comment: - Best Practice Alert: To ensure optimal transport conditions and accurate culture results transfer urine specimens to carrillo top C and S preservative tube. Culture Result - No growth (<1,000 CFU/ml) Performed By: #### URCUL #### [facility] [employer] [place], [place] [address] COMP METABOLIC PANEL Collected: 05/22/2018 Status: F Source: [place] 1:58 PM [facility] REPOSITORY TYPE CODE TESTS RESULT OUT OF REFERENCE UNITS RANGE LAB TP 6.3-8.0 g/dL Protein, Total 7.0 LAB ALB 3.9-4.9 g/dL Albumin 4.0 LAB CA 8.5-10.2 mg/dL Calcium, Total 9.4 LAB TBIL 0.2-1.3 mg/dL Bilirubin, Total 1.1 LAB ALKP 38-113 U/L Alkaline Phosphatase 55 LAB AST 14-40 U/L AST 19 LAB GLU 74-99 mg/dL Glucose High 106 LAB BUN 7-21 mg/dL BUN 17 LAB CRET 0.73-1.22 mg/dL Creatinine 1.17 LAB NA 136-144 mmol/L Sodium 137 LAB K 3.7-5.1 mmol/L Potassium 3.8 LAB CL 97-105 mmol/L Chloride 102 LAB CO2 22-30 mmol/L CO2 27 LAB AGAP 9-18 mmol/L Anion Gap Low 8 LAB ALT 10-54 U/L ALT 18 LAB GFRAA eGFR- >60 Amer. LAB GFRNAA . eGFR-All Other Races >60 Result Comment: eGFR (Estimated GFR) Units of measure: mL/min/1.73 meters squared eGFR is derived from the reexpressed MDRD Study equation using the following parameters: serum creatinine, age, gender and race. The creatinine assay has been calibrated to be traceable to IDMS. An eGFR <60 mL/min/1.73m2 for >3 months is consistent with chronic kidney disease. Refer to KDOQI guidelines for clinical interpretation. In patients with unstable renal function, e.g. those with acute kidney injury, the eGFR may not accurately reflect actual GFR. CBC AND DIFFERENTIAL Collected: 05/22/2018 Status: F Source: [place] 1:57 PM [facility] REPOSITORY TYPE CODE TESTS RESULT OUT OF REFERENCE UNITS RANGE LAB WBC 3.70-11.00 k/uL WBC 7.46 LAB RBC 4.20-6.00 m/uL RBC 4.80 LAB HGB 13.0-17.0 g/dL Hemoglobin 14.3 LAB HCT 39.0-51.0 % Hematocrit 45.2 LAB MCV 80.0-100.0 fL MCV 94.2 LAB MCH 26.0-34.0 pG MCH 29.8 LAB MCHC 30.5-36.0 g/dL MCHC 31.6 LAB RDWCV 11.5-15.0 % RDW-CV 14.1 LAB PLTCT 150-400 k/uL Platelet Count 203 LAB MPV 9.0-12.7 fL MPV 12.3 LAB ANEUT % Neut% 63.6 LAB AANEUT 1.45-7.50 k/uL Abs Neut 4.72 LAB ALYMP % Lymph% 20.0 LAB AALYMP 1.00-4.00 k/uL Abs Lymph 1.49 LAB AMONO % [place]% 8.8 LAB AAMONO <0.87 k/uL Abs [place] 0.66 LAB AEOS % Eosin% 6.4 LAB AAEOS <0.46 k/uL Abs High Eosin 0.48 LAB ABASO % Baso% 1.2 LAB AABASO <0.11 k/uL Abs Baso 0.09 LAB AUNRBC 0 /100 WBC NRBCs 0.0 LAB ABNRBC <0.01 k/uL Absolute nRBC <0.01 LAB DTYP DTYPE Auto Diff Performed By: #### CBCDIF, RETIC, IRON, FERR, B12, SERFOL, HBA1C #### [facility] [place] [address] RETICULOCYTE Collected: 05/22/2018 Status: F Source: [place] 1:57 PM [facility] REPOSITORY TYPE CODE TESTS RESULT OUT OF REFERENCE UNITS RANGE LAB RETC 0.4-2.0 % Retic% 1.5 LAB ABRET 0.0180-0.1000 M/uL Abs Retic 0.072 Performed By: #### CBCDIF, RETIC, IRON, FERR, B12, SERFOL, HBA1C #### [facility] [address] [place] [id number] IRON AND TIBC Collected: 05/22/2018 Status: F Source: [place] 1:57 PM [facility] REPOSITORY TYPE CODE TESTS RESULT OUT OF REFERENCE UNITS RANGE LAB IRN 41-186 ug/dL Iron 87 LAB TIBC 232-386 ug/dL TIBC 307 LAB SAT 15-57 % Transferrin Saturatn 28 Performed By: #### CBCDIF, RETIC, IRON, FERR, B12, SERFOL, HBA1C #### [facility] [address] [place] [address] FERRITIN Collected: 05/22/2018 Status: F Source: [place] 1:57 PM [facility] REPOSITORY TYPE CODE TESTS RESULT OUT OF REFERENCE UNITS RANGE LAB FERR 30.3-565.7 ng/mL Ferritin 54.8 Performed By: #### CBCDIF, RETIC, IRON, FERR, B12, SERFOL, HBA1C #### [place] [address] VITAMIN B12 Collected: 05/22/2018 Status: F Source: [place] 1:57 PM [facility] REPOSITORY TYPE CODE TESTS RESULT OUT OF REFERENCE UNITS RANGE LAB B12 232-1245 pg/mL Vitamin B12 277 Performed By: #### CBCDIF, RETIC, IRON, FERR, B12, SERFOL, HBA1C #### [place] [address] FOLATE, SERUM Collected: 05/22/2018 Status: F Source: [place] 1:57 PM [facility] REPOSITORY TYPE CODE TESTS RESULT OUT OF REFERENCE UNITS RANGE LAB SERFOL >4.7 ng/mL Folate, 9.7 Serum Performed By: #### CBCDIF, RETIC, IRON, FERR, B12, SERFOL, HBA1C #### [place] [address] HEMOGLOBIN A1C Collected: 05/22/2018 Status: F Source: [place] 1:57 PM [facility] REPOSITORY TYPE CODE TESTS RESULT OUT OF REFERENCE UNITS RANGE LAB HGBA1C 4.3-5.6 % Hemoglobin A1c 5.6 LAB HBA0 mg/dL Est. Average Glucose 114 Result Comment: eAG: (Estimated average glucose) is a calculated value from HgbA1c and is appliance service representative of the average blood glucose level in the last 2-3 month period. Performed By: #### CBCDIF, RETIC, IRON, FERR, B12, SERFOL, HBA1C #### [place] [address] CONFIRM BLOOD TYPE Collected: 05/22/2018 Status: F Source: [place] 1:53 PM [facility] OTHER CAMPUS REPOSITORY TYPE CODE TESTS RESULT OUT OF REFERENCE UNITS RANGE LAB %ABR AB ABO/RH(D) POSTIVE Performed By: #### CONABO #### [facility] [address] [facility] [phone] TYPE AND SCR (30D) Collected: 05/22/2018 Status: F Source: [place] 1:51 PM [facility] OTHER CAMPUS REPOSITORY TYPE CODE TESTS RESULT OUT OF REFERENCE UNITS RANGE LAB %ABR ABO/RH(D) AB POSTIVE LAB % Antibody NEG Screen Performed By: #### [id number] #### [facility] [address] [facility] [phone] HISTORY PHYSICAL Observed: 05/22/2018 Status: COMPLETED Source: [place] 1:15 PM [facility] REPOSITORY HNO ID: [id number] Author: LIZZY Vasquez Pa-C Service: (none) Author Type: Physician Ciso Type: HANDP Filed: 05/22/2018 1:52 PM Note Text: HISTORY AND PHYSICAL EXAMINATION SERVICE DATE: 05/22/2018 SERVICE TIME: 1:15 PM PRIMARY CARE PHYSICIAN: Fartun Fitzpatrick MD REASON FOR VISIT: Dimitris Ochoa is a 73 year old male who is scheduled for PACC at the request of Dr. Wilner Chew for consultation. My final recommendation will be communicated back to the requesting physician by way of shared medical record or letter. 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 and Other Lower Urinary Tract Symptoms (Luts) Atrial Fibrillation (Hcc) Obesity, Class Iii, Bmi 40-49.9 (Morbid Obesity) (Hcc) Mixed Hyperlipidemia Unspecified Gastritis and Gastroduodenitis Without Mention of Hemorrhage Osteoarthrosis, Unspecified Whether Generalized Or Localized, Other Specified Sites Essential Hypertension Bladder Neck Obstruction H/O: Hematuria Hypothyroidism Umbilical Hernia Without Mention of Obstruction Or Gangrene Paroxysmal Supraventricular Tachycardia (Hcc) 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 The pain is worse with walking, using stairs, and rising from a bent knee position. He has been experiencing symptoms for several years. He previously has received PT, joint injections and x-rays. Patient is scheduled for left knee arthroplasty by Dr. Chew on 06/02/2018. PAST MEDICAL HISTORY Diagnosis Date - Abdominal pain, left lower quadrant - Abscess of anal and rectal regions - Anticoagulated on Coumadin 11/28/2016 - Diverticulosis of colon (without mention of hemorrhage) - Dizziness and giddiness - Generalized osteoarthrosis, unspecified site - Hypothyroidism 04/07/2010 - Lipoma of other skin and subcutaneous tissue - Paroxysmal ventricular tachycardia (HCC) Dr. Arana in past; currently Dr. Cates - [facility] - PAST MEDICAL HISTORY OF glaucoma - PM - PAST MEDICAL HISTORY OF blood clots in lungs AND legs - Sebaceous cyst - Unspecified essential hypertension - Unspecified hypothyroidism PAST SURGICAL HISTORY Procedure Laterality Date - APPENDECTOMY - COLONOSCOP W/ OR W/O [facility] SPEC 10/21/2006 Colonoscopy - PAST SURGICAL HISTORY OF 10/11/02 left carpal tunnel - PAST SURGICAL HISTORY OF cardiac ablation x 2 - PAST SURGICAL HISTORY OF Right carpal tunnel release - PAST SURGICAL HISTORY OF Bilateral cataract surgery - REPAIR UMBILICAL EDMUNDO,5+Y/O,REDUC 06/15/10 with mesh FAMILY HISTORY Problem Relation Age of Onset - Stroke Father - Hypertension Father - Hypertension Mother - Heart Paternal Uncle SOCIAL HISTORY: Social History Marital status: Spouse name: Ramon Years of education: Number of children: Occupational History Occupation Employer Comment line crew supervis* [employer] Social History Main Topics Smoking status: Former Smoker Packs/day: 1.50 Years: 4.00 Types: Cigarettes Quit date: 07/25/1971 Smokeless tobacco: Never Used Alcohol use: Yes Comment: 2 drinks a month Drug use: No MEDICATIONS: Prior to Admission medications as of 05/22/18 1321 Medication Sig Last Dose Taking nabumetone (RELAFEN) 500 mg tablet TAKE 1 TABLET TWICE A DAY WITH MEALS Yes moexipril (UNIVASC) 15 mg tablet Take 15 mg by mouth once daily. Yes hydroCHLOROthiazide (HYDRODIURIL, ESIDRIX) 25 mg tablet TAKE ONE-HALF (1/2) TABLET DAILY Yes levothyroxine (SYNTHROID) 88 mcg tablet TAKE ONE TABLET ONCE DAILY (ADD ONE-HALF (1/2) TABLET ONCE WEEKLY TOTAL SEVEN AND ONE-HALF TABLETS PER WEEK) Yes warfarin (COUMADIN) 5 mg tablet Take 1 tablet (5 mg) on , Tuesday, and 1 and one half tablets (7.5 mg) all other days, or as directed Yes metoprolol succinate ER (TOPROL XL) 25 mg 24 hr tablet Take 1 tablet by mouth once daily. Yes ezetimibe (ZETIA) 10 mg tablet Take 1 tablet by mouth once daily. Yes latanoprost(XALATAN 0.005 % EYE DROPS) Take as directed Yes potassium chloride(KLOR-CON 10 10 MEQ TAB) Take one(1) tablet daily. Yes aspirin(ADULT ASPIRIN EC LOW STRENGTH 81 MG TAB, DELAYED RELEASE) Take one(1) tablet daily. Yes TAMBOCOR 100 MG TAB take one (1) tablet twice a day Yes No medication comments found. CURRENT ALLERGIES: ALLERGIES Allergen Reactions - Levaquin [Levofloxa* Other: See Comments Reports nightmares - Lipitor [Atorvastat* Myalgia stopped by Dr. Cates - Lovastatin Other: See Comments muscle aches - Pravastatin Other: See Comments muscle aches - Simvastatin Other: See Comments muscle aches - Fijtrpa-Thn-Akr Red* Myalgia tried them all - Ceftin [Cefuroxime] Diarrhea REVIEW OF SYSTEMS: PAIN ASSESSMENT: General: No weight loss, malaise or fevers. Neuro: No history of TIA's, stroke, TOLL TEST WORKER tumor, impaired sensorium, hemiplegia, paraplegia or quadraplegia. No neurological symptoms or problems. Respiratory: No history of current cough or dyspnea, or pneumonia in the past 6 weeks. No history of respiratory/pulmonary symptoms or problems. Cardiovascular: Positive for: HLD, Hypertension- Rx Negative for chest pain, orthopnea, PND, dizziness, lightheadedness or syncope. + for heart murmur. Negative for h/o DVT/PE. Negative for LE edema + for h/o DVT/PE (2005). + for h/o SVT, s/p ablation x 2 + for atrisal fibrillation- Rx + for CAD followed by rate marker Dr. Cates. GI: Denies nausea, vomiting, diarrhea, constipation, or abdominal pain. : + for nocturia + for BPH No history of UTI in past 6 weeks. No history of renal failure. Not currently on or requiring dialysis. Negative for dysuria, hematuria, urgency, or frequency. Endocrine: Hypothyroidism- Rx Hematology: Easy bruising / bleeding, Chronic anti-coagulation / platelet meds (Coumadin) Oncology: No history of CA metastasis, chemo within 30 days, or radiotherapy within 90 days. Has not lost 10% of body wt in 6 months. No history of oncological symptoms or problems. + for BCC and melanoma excision Psych: No history of psychiatric symptoms or problems. Musculoskeletal: See HPI Patient does not require pain management. Patient denies a history of difficulty controlling post-op pain. Skin: Negative for lesions, rash and itching. Objective PHYSICAL EXAM: VITALS: BP 148/86 Pulse 69 Temp (Src) 97.5 (Temporal Artery) Ht 6' 4 (1.93m) Wt 322 lb (146.1kg) SpO2 98% BMI 39.21 kg/(m2). General: Alert and oriented, No acute distress, very pleasant. Skin: Normal color, no rash, no lesions. HEENT: pupils equal, round and reactive. Cardiovascular: Normal S1 AND S2, no rubs, murmurs or gallops. No JVD. Pulse regular. Lungs: Normal breath sounds, no wheezes or crackles. Abdomen: Soft, non-tender, no rigidity., obeese Extremities: No deformity, no edema or tenderness, no joint swelling or clubbing. Neurological: Normal cognition and motor skills. Pulses: Carotid and radial pulses normal +2. Diagnostic tests reviewed for today's visit: PENDING Assessment ASSESSMENT Patient has the following medical conditions HTN- Rx HLD- Rx CAD H/o SVT, s/p ablation x 2 Atrial fibrillation- Rx, followed by rate marker Dr. Cates at [facility]. 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 ASA Class: 3 ANESTHESIA FINDINGS: Intubation History: No history of difficult intubation Significant Anesthesia Considerations: None Airway Exam: General: Morbid obesity Mallampati Score is CLASS III ULBT: Class I - Lower incisors can bite the upper lip above the dequan line Neck: Normal appearance and function, Distance from hyoid to mentum during neck extension is at least 3 finger breaths Mouth: Normal tongue size and Mouth opening greater than 2 finger breaths Dentition: Intact Airway History: No abnormal airway history STOP BANG Score: Criteria: Hypertension BMI > 35 Age over 50 (73 year old) Male gender Score = 4 PLAN This patient is optimally prepared for surgery pending LABS. CONSULTS: The following consults have been initiated at this time: Request for cardiac optimization has been faxed to Dr. Cates office, to be scanned into Intio when received. EKG obtained from outside facility, to be scanned into Intio. Patient to received pre-op coumadin instructions from PCP Dr. Fitzpatrick, see message dated 05/18/2018, awaiting response. The Following Tests/Procedures Have Been Initiated: Orders Placed This Encounter URINALYSIS WITH MICROSCOPIC STAPH AUREUS PCR TYPE + SCREEN,30 DAY CONFIRM BLOOD TYPE URINE CULTURE Surgeon ordered: CBC, CMP, A1C, iron, ferritin Planned Anesthetic: Per anesthesia choice Instructions Given to Patient: Patient given verbal and written preop instructions and voices comprehension and compliance. SIGNATURE: Char Hunt PA-C PATIENT NAME: Dimitris Ochoa DATE: May 22, 2018 TIME: 1:15 PM PAGER/CONTACT #: [phone] Observed: 05/19/2018 Status: COMPLETED Source: [facility] 12:00 AM CLINIC MAIN CAMPUS REPOSITORY Letter Text Pre Anesthesia Consult Clinic [facility] [id number] [place], [place] [id number] [place] May 19, 2018 Dimitris Ohcoa [id number] [address] Matt Cates, This is in regards to our mutual patient, Mr. Dimitris Ochoa who is to be seen at my office in [place] on 05/22/2018. Mr. Dimitris Ochoa is scheduled for left knee arthroplasty under anesthesia on 06/02/[address] Chew at [facility]. Is the patient optimized for surgery from a cardiac standpoint? Please initial answer, sign and fax response MYRNA to [place] . Questions can be referred to the nursing desk at [place] and ask for Char Hunt PA-C. Yes, pt is optimized for planned procedure No, pt in NOT optimized for planned procedure Additional comments: Physician signature: X Date: Char Ness PA-C PROGRESS Observed: 05/18/2018 Status: COMPLETED Source: [facility] 2:34 PM CLINIC OTHER CAMPUS REPOSITORY HNO ID: [id number] Author: Hayes Mars (Psa) Service: (none) Author Type: Patient Cane Flume Watchman Type: Progress Notes Filed: 05/18/2018 2:34 PM Note Text: TOTAL JOINT COMPLETE CARE PROGRAM ORTHOPAEDIC TOTAL JOINT CLASS Service Date: 05/18/2018 Service Time: 2:34 PM Dimitris Ochoa is scheduled for knee replacement on 06/02/18. He did attend the pre-op joint replacement class. Issues Reviewed: below Education Topic/Teaching Points: Day of surgery arrival instructions (including phone number to call for arrival time) Pre-op skin wipes Hospital course: -TCI area, operating room, recovery room -Anesthesia: Spinal vs general -Pain control: Nerve block, epidural, oral medications, AND IV medications -DVT prophylaxis ASA, Lovenox, Coumadin Post-op dressings Showering instructions Aquacell dressing to be removed 7 days post op Incision care: [place] vs dissolvable sutures with glue Signs AND symptoms of infection Signs AND symptoms of DVT Home physical therapy Home pain medications: Refill protocol and side effects Pain management: Ice, elevation of extremity and pain meds Care Management Discharge plan Discuss with family/friends about assistance after discharge from the hospital SNF ([facility]) Rehab nurse will contact prior to admission to discuss post- op needs and home therapy vs SNF sales and business development manager/social work manager in hospital final arrangements for discharge Physical and occupational therapy while in the hospital Getting your home ready What to bring to the hospital Preparing yourself for surgery: Dentist, stop smoking Diet Exercises: Circulation exercises Adaptive equipment Hip and knee precautions SIGNATURE: VALENCIA Huang PATIENT NAME: Dimitris Ochoa DATE: May 18, 2018 TIME: 2:34 PM PAGER/CONTACT #: [phone] CNCNPATED Observed: 05/18/2018 Status: COMPLETED Source: [facility] 12:00 AM CLINIC OTHER [place] REPOSITORY Education (ME4S) DIMITRIS OCHOA ([id number]) 1945 M Date Time Provider Department 05/18/18 HAYES MARS (PSA) ME4S Reason for Visit: Pre-Op Teaching [134] Cmt: Total Joint Class Progress Notes: VALENCIA Huang 05/18/2018 2:34 PM Signed TOTAL JOINT COMPLETE CARE PROGRAM ORTHOPAEDIC TOTAL JOINT CLASS Service Date: 05/18/2018 Service Time: 2:34 PM Dimitris Ohcoa is scheduled for knee replacement on 06/02/18. He did attend the pre-op joint replacement class. Issues Reviewed: below Education Topic/Teaching Points: Day of surgery arrival instructions (including phone number to call for arrival time) Pre-op skin wipes Hospital course: -TCI area, operating room, recovery room -Anesthesia: Spinal vs general -Pain control: Nerve block, epidural, oral medications, AND IV medications -DVT prophylaxis ASA, Lovenox, Coumadin Post-op dressings Showering instructions Aquacell dressing to be removed 7 days post op Incision care: [place] vs dissolvable sutures with glue Signs AND symptoms of infection Signs AND symptoms of DVT Home physical therapy Home pain medications: Refill protocol and side effects Pain management: Ice, elevation of extremity and pain meds Care Management Discharge plan Discuss with family/friends about assistance after discharge from the hospital SNF ([facility]) Rehab nurse will contact prior to admission to discuss post- op needs and home therapy vs SNF sales and business development manager/social work manager in hospital final arrangements for discharge Physical and occupational therapy while in the hospital Getting your home ready What to bring to the hospital Preparing yourself for surgery: Dentist, stop smoking Diet Exercises: Circulation exercises Adaptive equipment Hip and knee precautions SIGNATURE: Hayes Mars VALENCIA PATIENT NAME: Dimitris Ochoa DATE: May 18, 2018 TIME: 2:34 PM PAGER/CONTACT #: [phone] During your visit today, we recorded the following information about you: Allergies As of Date: 05/18/2018 Noted Allergy Reaction LEVAQUIN (LEVOFLOXACIN) 08/24/2013 14 - Other: See Comments Comments: Reports nightmares LIPITOR (ATORVASTATIN) 11/05/2015 17 - Myalgia Comments: stopped by Dr. Cates LOVASTATIN 02/18/2014 14 - Other: See Comments Comments: muscle aches PRAVASTATIN 02/18/2014 14 - Other: See Comments Comments: muscle aches SIMVASTATIN 02/18/2014 14 - Other: See Comments Comments: muscle aches IUTQYNU-[id number]-FFH REDUCTASE INHIBIT*11/05/2015 17 - Myalgia Comments: tried them all CEFTIN (CEFUROXIME) 02/22/2011 6 - Diarrhea Date Reviewed: 04/11/2018 Reviewed by: Anayeli Landaverde CT - Fully Assessed Prescriptions as of 05/18/2018 Sig: NABUMETONE 500 MG TABLET TAKE 1 TABLET TWICE A DAY WIT* MOEXIPRIL 15 MG TABLET Take 15 mg by mouth once randall* HYDROCHLOROTHIAZIDE 25 MG TAB* TAKE ONE-HALF (1/2) TABLET DA* FLUTICASONE 50 MCG/ACTUATION * Use 2 Sprays in each nostril * LEVOTHYROXINE 88 MCG TABLET TAKE ONE TABLET ONCE DAILY (A* WARFARIN 5 MG TABLET Take 1 tablet (5 mg) on * METOPROLOL SUCCINATE ER 25 MG* Take 1 tablet by mouth once d* EZETIMIBE 10 MG TABLET Take 1 tablet by mouth once d* * XALATAN 0.005 % EYE DROPS Take as directed * KLOR-CON 10 MEQ TABLET,EXTEND* Take one(1) tablet daily. * ADULT ASPIRIN EC LOW STRENGTH* Take one(1) tablet daily. * TAMBOCOR 100 MG TABLET take one (1) tablet twice a d* Encounter Status:Closed by HAYES MARS on 05/18/18 CNNURSE Observed: 05/12/2018 Status: COMPLETED Source: [facility] 1:10 PM [facility] REPOSITORY Nurse Visit (FAMPWS) DIMITRIS OCHOA ([id number]) 1945 M Date Time Provider Department 05/12/18 1:10 PM [place] NURSE FAMPWS During your visit today, we recorded the following information about you: Temperature 97.3 degrees Geeta May LPN 05/12/2018 12:59 PM Signed 73 year old male here for INACTIVATED INFLUENZA VACCINE. 5689-7954 Season Patient is identified by name and date of : Yes [] CONTRAINDICATIONS color enhanced section Age less than 6 months? No Allergy to eggs, chicken, chicken feathers, or chicken dander? No Allergy to thimerosal (a preservative) or formaldehyde, gelatin? No History of severe reaction to any vaccine component or a previous dose of influenza vaccination? No History of Guillain-Hunter Syndrome within 6 weeks after a previous influenza vaccine? No Patient is not moderately or severely ill? No Current temperature greater or equal to 100.4F? No History of Bone Marrow Transplant prior 6 months or solid organ transplant in the past 3 months ? No History of fainting after a prior injection or medical procedure? No- ? If patient has fainted in the past, the CDC recommends sitting or lying down for 15 minutes after the vaccination. [] VERIFICATION color enhanced section Was the answer Yes for any of the above contraindications? No contraindications present. Acceptable to proceed with vaccine. Patient/guardian agrees the above answers are true to the best of their knowledge? Yes Flu vaccine information sheet given? Yes See immunization activity in [facility] for details of immunizations adminstered today. Patient age: [age] year old For The Flu Season 6-35 months old: Fluzone 0.25 ml - IM (Preservative Free) 3 years of age: Fluzone 0.5 ml - IM (Preservative Free) 3 years and older: Fluzone 0.5 ml- IM-(with Preservatives) 65+ years old: 2-49 years old Fluzone High-Dose 0.5 ml - IM (Preservative Free) FLUMIST- intranasal REMEMBER: If patient is less than 9 years of age and this is the first vaccine of Influenza to be received in any flu season, they should receive a second dose in one months time. Referring Provider: FARTUN FITZPATRICK [[id number]] Allergies As of Date: 05/12/2018 Noted Allergy Reaction LEVAQUIN (LEVOFLOXACIN) 08/24/2013 14 - Other: See Comments Comments: Reports nightmares LIPITOR (ATORVASTATIN) 11/05/2015 17 - Myalgia Comments: stopped by Dr. Cates LOVASTATIN 02/18/2014 14 - Other: See Comments Comments: muscle aches PRAVASTATIN 02/18/2014 14 - Other: See Comments Comments: muscle aches SIMVASTATIN 02/18/2014 14 - Other: See Comments Comments: muscle aches FUBNFQU-JXN-CKI REDUCTASE INHIBIT*11/05/2015 17 - Myalgia Comments: tried them all CEFTIN (CEFUROXIME) 02/22/2011 6 - Diarrhea Date Reviewed: 04/11/2018 Reviewed by: Anayeli Landaverde CT - Fully Assessed Reason for Visit: Imm/Inj [58] Cmt: Flu Vaccine Primary Visit Diagnosis:Need for vaccination [Z23] Order(s):INFLUENZA SEASONAL HIGH DOSE AGE 65+ [[id number]] Order #: [id number] Prescriptions as of 05/12/2018 Sig: NABUMETONE 500 MG TABLET TAKE 1 TABLET TWICE A DAY WIT* MOEXIPRIL 15 MG TABLET Take 15 mg by mouth once randall* HYDROCHLOROTHIAZIDE 25 MG TAB* TAKE ONE-HALF (1/2) TABLET DA* FLUTICASONE 50 MCG/ACTUATION * Use 2 Sprays in each nostril * LEVOTHYROXINE 88 MCG TABLET TAKE ONE TABLET ONCE DAILY (A* WARFARIN 5 MG TABLET Take 1 tablet (5 mg) on * METOPROLOL SUCCINATE ER 25 MG* Take 1 tablet by mouth once d* EZETIMIBE 10 MG TABLET Take 1 tablet by mouth once d* * XALATAN 0.005 % EYE DROPS Take as directed * KLOR-CON 10 MEQ TABLET,EXTEND* Take one(1) tablet daily. * ADULT ASPIRIN EC LOW STRENGTH* Take one(1) tablet daily. * TAMBOCOR 100 MG TABLET take one (1) tablet twice a d* More... More... 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 BPH W URINARY OBS/LUTS [N40.1] INVALID FOR* Atrial Fibrillation [I48.91] INVALID FOR* More... Obesity, Class III, BMI 40-49.9 (morbid obesity*INVALID FOR* Mixed hyperlipidemia [E78.2] INVALID FOR* More... GASTRITIS/DUODEN NOS W/O HEMORRH [K29.70, K29.9*INVALID FOR* More... Routine general medical examination at a health*INVALID FOR*11/11/2014 More... OSTEOARTHROS NOS-OTHER SITE [M19.90] INVALID FOR* Essential hypertension [I10] INVALID FOR* More... Bladder Neck Obstruction [N32.0] INVALID FOR* H/O: Hematuria [Z87.448] INVALID FOR* Hypothyroidism [E03.9] INVALID FOR* Umbilical hernia without mention of obstruction*INVALID FOR* Paroxysmal supraventricular tachycardia [I47.1] INVALID FOR* More... Cor athrscl-uns vessel [I25.10] INVALID FOR* More... Other pulmonary embolism and infarction [I26.99]INVALID FOR* More... Heel spur [M77.30] INVALID FOR* Hypercholesterolemia [E78.00] INVALID FOR* Imaging abnormality [R93.89] INVALID FOR* Anticoagulated on Coumadin [Z51.81, Z79.01] INVALID FOR* Primary localized osteoarthritis of right knee *INVALID FOR* More... Encounter Status:Closed by GEETA MAY LPN on 05/12/18 PROGRESS Observed: 05/12/2018 Status: COMPLETED Source: [facility] 12:58 PM [facility] MAIN CAMPUS REPOSITORY O ID: [id number] Author: Geeta May LPN Service: (none) Author Type: (none) Type: Progress Notes Filed: 05/12/2018 12:59 PM Note Text: 73 year old male here for INACTIVATED INFLUENZA VACCINE. [id number] Season Patient is identified by name and date of : Yes [] CONTRAINDICATIONS color enhanced section Age less than 6 months? No Allergy to eggs, chicken, chicken feathers, or chicken dander? No Allergy to thimerosal (a preservative) or formaldehyde, gelatin? No History of severe reaction to any vaccine component or a previous dose of influenza vaccination? No History of Guillain-Hunter Syndrome within 6 weeks after a previous influenza vaccine? No Patient is not moderately or severely ill? No Current temperature greater or equal to 100.4F? No History of Bone Marrow Transplant prior 6 months or solid organ transplant in the past 3 months ? No History of fainting after a prior injection or medical procedure? No- ? If patient has fainted in the past, the CDC recommends sitting or lying down for 15 minutes after the vaccination. [] VERIFICATION color enhanced section Was the answer Yes for any of the above contraindications? No contraindications present. Acceptable to proceed with vaccine. Patient/guardian agrees the above answers are true to the best of their knowledge? Yes Flu vaccine information sheet given? Yes See immunization activity in [facility] for details of immunizations adminstered today. Patient age: [age] year old For The 9232-4016 Flu Season 6-35 months old: Fluzone 0.25 ml - IM (Preservative Free) 3 years of age: Fluzone 0.5 ml - IM (Preservative Free) 3 years and older: Fluzone 0.5 ml- IM-(with Preservatives) 65+ years old: 2-49 years old Fluzone High-Dose 0.5 ml - IM (Preservative Free) FLUMIST- intranasal REMEMBER: If patient is less than 9 years of age and this is the first vaccine of Influenza to be received in any flu season, they should receive a second dose in one months time. PROGRESS Observed: 05/08/2018 Status: COMPLETED Source: [facility] 10:00 PM [facility] [place] REPOSITORY HNO ID: [id number] Author: Tyler (Rn) Wilmar Boateng RN Service: (none) Author Type: Registered Nurse Type: Progress Notes Filed: 05/08/2018 10:00 PM Note Text: Patient referred to Blood Management for pre-surgical optimization. Current and complete lab data unavailable. Unable to complete evaluation. HOSP Observed: 05/08/2018 Status: COMPLETED Source: [place] 12:00 AM [facility] REPOSITORY Patient Update (ORMDNA) GABRIELADIMITRIS L ([id number]) 1945 M Date Time Provider Department 05/08/18 TYLER PATEL (RN) TAINACJ During your visit today, we recorded the following information about you: Tyler Alvarado, RN, RN 05/08/2018 10:00 PM Signed Patient referred to Blood Management for pre-surgical optimization. Current and complete lab data unavailable. Unable to complete evaluation. Allergies As of Date: 05/08/2018 Noted Allergy Reaction LEVAQUIN (LEVOFLOXACIN) 08/24/2013 14 - Other: See Comments Comments: Reports nightmares LIPITOR (ATORVASTATIN) 11/05/2015 17 - Myalgia Comments: stopped by Dr. Cates LOVASTATIN 02/18/2014 14 - Other: See Comments Comments: muscle aches PRAVASTATIN 02/18/2014 14 - Other: See Comments Comments: muscle aches SIMVASTATIN 02/18/2014 14 - Other: See Comments Comments: muscle aches UCNLEAE-LYC-XNM REDUCTASE INHIBIT*11/05/2015 17 - Myalgia Comments: tried them all CEFTIN (CEFUROXIME) 02/22/2011 6 - Diarrhea Date Reviewed: 04/11/2018 Reviewed by: Anayeli Landaverde CT - Fully Assessed Reason for Visit: Blood Management [Other] Prescriptions as of 05/08/2018 Sig: NABUMETONE 500 MG TABLET TAKE 1 TABLET TWICE A DAY WIT* MOEXIPRIL 15 MG TABLET Take 15 mg by mouth once randall* HYDROCHLOROTHIAZIDE 25 MG TAB* TAKE ONE-HALF (1/2) TABLET DA* FLUTICASONE 50 MCG/ACTUATION * Use 2 Sprays in each nostril * LEVOTHYROXINE 88 MCG TABLET TAKE ONE TABLET ONCE DAILY (A* WARFARIN 5 MG TABLET Take 1 tablet (5 mg) on * METOPROLOL SUCCINATE ER 25 MG* Take 1 tablet by mouth once d* EZETIMIBE 10 MG TABLET Take 1 tablet by mouth once d* * XALATAN 0.005 % EYE DROPS Take as directed * KLOR-CON 10 MEQ TABLET,EXTEND* Take one(1) tablet daily. * ADULT ASPIRIN EC LOW STRENGTH* Take one(1) tablet daily. * TAMBOCOR 100 MG TABLET take one (1) tablet twice a d* More... More... 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 BPH W URINARY OBS/LUTS [N40.1] INVALID FOR* Atrial Fibrillation [I48.91] INVALID FOR* More... Obesity, Class III, BMI 40-49.9 (morbid obesity*INVALID FOR* Mixed hyperlipidemia [E78.2] INVALID FOR* More... GASTRITIS/DUODEN NOS W/O HEMORRH [K29.70, K29.9*INVALID FOR* More... Routine general medical examination at a [facility]*INVALID FOR*11/11/2014 More... OSTEOARTHROS NOS-OTHER SITE [M19.90] INVALID FOR* Essential hypertension [I10] INVALID FOR* More... Bladder Neck Obstruction [N32.0] INVALID FOR* H/O: Hematuria [Z87.448] INVALID FOR* Hypothyroidism [E03.9] INVALID FOR* Umbilical hernia without mention of obstruction*INVALID FOR* Paroxysmal supraventricular tachycardia [I47.1] INVALID FOR* More... Cor athrscl-uns vessel [I25.10] INVALID FOR* More... Other pulmonary embolism and infarction [I26.99]INVALID FOR* More... Heel spur [M77.30] INVALID FOR* Hypercholesterolemia [E78.00] INVALID FOR* Imaging abnormality [R93.89] INVALID FOR* Anticoagulated on Coumadin [Z51.81, Z79.01] INVALID FOR* Primary localized osteoarthritis of right knee *INVALID FOR* More... Encounter Status:Closed by TYLER ALVARADO RN on 05/08/18 HOSP Observed: 05/03/2018 Status: COMPLETED Source: [facility] 12:00 AM CLINIC OTHER CAMPUS REPOSITORY Patient:Dimitris Ochoa MRN: <[id number]> Height:6' 4(1.93 m) Weight:322 lb (146.058 kg) Outpatient Medications as of 06/02/18: enoxaparin (LOVENOX) 40 mg/0.4 mL syrg HYDROcodone-acetaminophen (NORCO) 5-325 mg per tablet levothyroxine (SYNTHROID) 88 mcg tablet warfarin (COUMADIN) 5 mg tablet moexipril (UNIVASC) 15 mg tablet hydroCHLOROthiazide (HYDRODIURIL, ESIDRIX) 25 mg tablet metoprolol succinate ER (TOPROL XL) 25 mg 24 hr tablet ezetimibe (ZETIA) 10 mg tablet latanoprost(XALATAN 0.005 % EYE DROPS) potassium chloride(KLOR-CON 10 10 MEQ TAB) aspirin(ADULT ASPIRIN EC LOW STRENGTH 81 MG TAB, DELAYED RELEASE) TAMBOCOR 100 MG TAB Admission/Clinic Administered Medications as of 06/02/18: lactated ringers infusion clindamycin iv piggyback 900 mg in D5W 50 mL (CLEOCIN) tranexamic acid 1,000 mg in NaCl 0.9% 100 mL (CYKLOKAPRON) tranexamic acid 1,000 mg in NaCl 0.9% 100 mL (CYKLOKAPRON) Problem List: 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] Hypertrophy of prostate with urinary obstruction and other lower urinary tract symptoms (LUTS) [N40.1] Atrial fibrillation (HCC) [I48.91] Obesity, Class III, BMI 40-49.9 (morbid obesity) (HCC) [E66.01] Mixed hyperlipidemia [E78.2] Unspecified gastritis and gastroduodenitis without mention of hemorrhage [K29.70, K29.90] Osteoarthrosis, unspecified whether generalized or localized, other specified sites [M19.90] Essential hypertension [I10] Bladder neck obstruction [N32.0] H/O: hematuria [Z87.448] Hypothyroidism [E03.9] Umbilical hernia without mention of obstruction or gangrene [K42.9] Paroxysmal supraventricular tachycardia (HCC) [I47.1] Atherosclerosis of coronary artery of chicken ranch heart without angina pectoris [I25.10] Other pulmonary embolism and infarction [I26.99] Heel spur [M77.30] Hypercholesterolemia [E78.00] Imaging abnormality [R93.89] Anticoagulated on Coumadin [Z51.81, Z79.01] Primary osteoarthritis of left knee [M17.12] Allergies: Levaquin [Levofloxacin] Lipitor [Atorvastatin] Lovastatin Pravastatin Simvastatin Pdnemgo-Bxx-Npj Reductase Inhibitors Ceftin [Cefuroxime] Date Verified: 06/02/18 Lab Values Lab Value Units Date High Low POTA* 3.8 mmol/L 05/22/2018 5.1 3.7 GEE* 45.2 % 05/22/2018 51.0 39.0 Progress Notes ([facility]): DEANNA RIOS, PHARMACIST 05/24/2018 2:12 PM Signed Awaiting Coumadin Clinic referral to be signed. Deanna Rios, PharmD Pharmacy [facility]tico[facility] ' Fartun Fitzpatrick MD 06/01/2018 8:15 PM Signed Filed order Progress Notes ([facility]): Thuy Mcelroy RN 05/22/2018 1:13 PM Signed Patient has been identified by name and date of : Yes Patient phones for refill(s): Pending Prescriptions Disp Refills LEVOTHYROXINE 88 MCG TABLET 98 tablet 3 Sig: TAKE 1 TABLET ONCE DAILY (ADD ONE-HALF (1/2) TABLET ONCE WEEKLY TOTAL SEVEN AND ONE-HALF (1/2) TABLETS PER WEEK REDDY: Yes WARFARIN 5 MG TABLET 135 tablet 3 Sig: TAKE 1 TABLET ON TUESDAY AND TUESDAY AND TAKE ONE AND ONE-HALF TABLETS (7.5 MG) ALL OTHER DAYS OR DIRECTED REDDY: Yes Date of last office visit in primary care: 01/30/18, future appt. 08/07/18 Last 2 Encounter Wt Readings: Date: Wt: 04/11/2018 143.3 kg (316 lb) 01/30/2018 144.2 kg (318 lb) Previous labs/tests for medication: Thyroid: TSH (uU/mL) Date Value 07/27/2017 2.310 Coumadin: PT INR (no units) Date Value 05/18/2018 2.1 Blood Counts: WBC (k/uL) Date Value 07/27/2017 5.83 RBC (m/uL) Date Value 07/27/2017 4.77 Hematocrit (%) Date Value 07/27/2017 44.9 Hemoglobin (g/dL) Date Value 07/27/2017 14.4 Platelet Count (k/uL) Date Value 07/27/2017 219 Please advise. Thank you. Thuy Fitzpatrick MD 05/23/2018 2:30 PM Signed ry Harp LPN 05/23/2018 3:59 PM Signed The following approved medication requests have been transmitted electronically. Signed Prescriptions Disp Refills levothyroxine (SYNTHROID) 88 mcg tablet 98 tablet 3 Sig: TAKE 1 TABLET ONCE DAILY (ADD ONE-HALF (1/2) TABLET ONCE WEEKLY TOTAL SEVEN AND ONE-HALF (1/2) TABLETS PER WEEK REDDY: No Authorizing Provider: FARTUN FITZPATRICK warfarin (COUMADIN) 5 mg tablet 135 tablet 3 Sig: TAKE 1 TABLET ON TUESDAY AND TUESDAY AND TAKE ONE AND ONE-HALF TABLETS (7.5 MG) ALL OTHER DAYS OR DIRECTED REDDY: No Authorizing Provider: FARTUN FITZPATRICK LPN CNOV Observed: 04/11/2018 Status: COMPLETED Source: [place] 11:00 AM [facility] REPOSITORY Office Visit (ORMDNA) DIMITRIS OCHOA ([id number]) 1945 M Date Time Provider Department 04/11/18 11:00 AM WILNER CHEW During your visit today, we recorded the following information about you: Weight 143.[address] 04/11/2018 10:59 AM Signed Patient presents with: Bilateral Knee Pain Wilner Chew MD 04/20/2018 9:00 AM Signed PRE OP VISIT Dimitris Ochoa is a 73 year old male who is in to schedule for a total knee. Please see full care path note of 01/05/18. He is here for a pre-op visit to address issues such as unilateral vs bilateral surgery. He does have a history of DVT and PE. The risks, benefits and anticipated outcomes of the procedure, the risks and benefits of the alternatives to the procedure have been discussed with the patient, and the patient consents to the procedure. Dimitris Ochoa was satisfied that all questions about the surgery were addressed, and will call. He is having cataract surgery done on April 25. Over 20 minutes was spent with the patient discussing the details of the surgery. Wilner Chew MD Referring Provider: SELF [[id number]] Allergies As of Date: 04/11/2018 Noted Allergy Reaction LEVAQUIN (LEVOFLOXACIN) 08/24/2013 14 - Other: See Comments Comments: Reports nightmares LIPITOR (ATORVASTATIN) 11/05/2015 17 - Myalgia Comments: stopped by Dr. Cates LOVASTATIN 02/18/2014 14 - Other: See Comments Comments: muscle aches PRAVASTATIN 02/18/2014 14 - Other: See Comments Comments: muscle aches SIMVASTATIN 02/18/2014 14 - Other: See Comments Comments: muscle aches CWBEITO-LYL-ABO REDUCTASE INHIBIT*11/05/2015 17 - Myalgia Comments: tried them all CEFTIN (CEFUROXIME) 02/22/2011 6 - Diarrhea Date Reviewed: 04/11/2018 Reviewed by: Anayeli Landaverde CT - Fully Assessed Reason for Visit: Bilateral Knee Pain [1210] Primary Visit Diagnosis:Primary osteoarthritis of both knees [M17.0] Prescriptions as of 04/11/2018 Sig: NABUMETONE 500 MG TABLET TAKE 1 TABLET TWICE A DAY WIT* MOEXIPRIL 15 MG TABLET Take 15 mg by mouth once randall* HYDROCHLOROTHIAZIDE 25 MG TAB* TAKE ONE-HALF (1/2) TABLET DA* LEVOTHYROXINE 88 MCG TABLET TAKE ONE TABLET ONCE DAILY (A* WARFARIN 5 MG TABLET Take 1 tablet (5 mg) on * METOPROLOL SUCCINATE ER 25 MG* Take 1 tablet by mouth once d* EZETIMIBE 10 MG TABLET Take 1 tablet by mouth once d* * XALATAN 0.005 % EYE DROPS Take as directed * KLOR-CON 10 MEQ TABLET,EXTEND* Take one(1) tablet daily. * ADULT ASPIRIN EC LOW STRENGTH* Take one(1) tablet daily. * TAMBOCOR 100 MG TABLET take one (1) tablet twice a d* FLUTICASONE 50 MCG/ACTUATION * Use 2 Sprays in each nostril * More... More... 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 BPH W URINARY OBS/LUTS [N40.1] INVALID FOR* Atrial Fibrillation [I48.91] INVALID FOR* More... Obesity, Class III, BMI 40-49.9 (morbid obesity*INVALID FOR* Mixed hyperlipidemia [E78.2] INVALID FOR* More... GASTRITIS/DUODEN NOS W/O HEMORRH [K29.70, K29.9*INVALID FOR* More... Routine general medical examination at a health*INVALID FOR*11/11/2014 More... OSTEOARTHROS NOS-OTHER SITE [M19.90] INVALID FOR* Essential hypertension [I10] INVALID FOR* More... Bladder Neck Obstruction [N32.0] INVALID FOR* H/O: Hematuria [Z87.448] INVALID FOR* Hypothyroidism [E03.9] INVALID FOR* Umbilical hernia without mention of obstruction*INVALID FOR* Paroxysmal supraventricular tachycardia [I47.1] INVALID FOR* More... Cor athrscl-uns vessel [I25.10] INVALID FOR* More... Other pulmonary embolism and infarction [I26.99]INVALID FOR* More... Heel spur [M77.30] INVALID FOR* Hypercholesterolemia [E78.00] INVALID FOR* Imaging abnormality [R93.8] INVALID FOR* Anticoagulated on Coumadin [Z51.81, Z79.01] INVALID FOR* Visit Notes: >> Anayeli Landaverde CT TueApr 11, 2018 10:55 AM Status: Signed Patient presents with: Bilateral Knee Pain Encounter Status:Closed by WILNER CHEW MD on 04/20/18 PROGRESS Observed: 04/11/2018 Status: COMPLETED Source: [place] 10:58 AM [facility] REPOSITORY HNO ID: [id number] Author: Wilner Chew Service: (none) Author Type: Physician Type: Progress Notes Filed: 04/20/2018 9:00 AM Note Text: PRE OP VISIT Dimitris Ochoa is a 73 year old male who is in to schedule for a total knee. Please see full care path note of 01/05/18. He is here for a pre-op visit to address issues such as unilateral vs bilateral surgery. He does have a history of DVT and PE. The risks, benefits and anticipated outcomes of the procedure, the risks and benefits of the alternatives to the procedure have been discussed with the patient, and the patient consents to the procedure. Dimitris Ochoa was satisfied that all questions about the surgery were addressed, and will call. He is having cataract surgery done on April 25. Over 20 minutes was spent with the patient discussing the details of the surgery. Wilner Chew MD STRESS TEST ECHO W/O Observed: 03/02/2018 Status: F Source: [place] CONTRAST 6:29 PM [facility] REPOSITORY [facility] Cardiovascular Services [address] [place] [id number] Stress Test Echo W/Contrast MR#: [id number] Acct: [id number] Name: DIMITRIS OCHOA Rep #: [id number] : 1945 72 From: Matt Cates MD Primary Care: Fartun Fitzpatrick MD Status: REG CLI Ordering Dr: Matt Cates MD Sex: M C Reason For Study: Atrial fib/flutter Stress Results Protocol: Modified Kael Stress Echo Maximum Predicted HR: 150 bpm Target HR: 128 bpm% Maximum Predict ed HR: 86 % DurationHeart Rate Stage (mm:ss) (bpm) BPCom ment BASELINE 55 152/90 DILUTED DEFINITY 4 ML USED DURING STRESS MODBRUCE- STAGE 1 3:00 11 0 148/86 MODBRUCE- STAGE 2 3:00 12 0 150/88 MODBRUCE- STAGE 3 1:00 12 9 168/98 RECOVERY 78 140/92 Stress Duration: 7:00 mm:ss Maximum Stress HR: 129 bpm Baseline Echocardiogram Findings The estimated ejection fraction is 65 %. Stress Echo Wall motion Data Resting WMIntermediate WMStress WM Resting Wall Motion Wall Motion Stress No regional wall motion No regional wall motion abnormalities noted. abnormalities noted. EKG Data Normal intervals are noted. At peak exercise, upsloping ST changes only were noted, which did not meet the criteria for ischemia. No clinical angina was noted. Interpretation Summary The estimated ejection fraction is 65 %. Normal, adequate, treadmill echocardiogram. Negative for ischemia by echocardiographic criteria. Pt did have diffuse inferior/lateral ST depression during exercise which resolved into recovery. This was seen previously on stress echo in 2017. No anginal symptoms noted. No arrhythmias noted. Appropriate blood pressure response to exercise. Below average exercise capacity for age. Final LVEF is 75%. Test terminated due to dyspnea and knee pain. No complications. Ordering Physician: Matt Cates Referring Physician: Matt Cates Performed By: Brayden Holcomb RCS 03/02/181827 Date Matt Cates MD CC: Matt Cates MD; Fartun Fitzpatrick MD Date Dictated: 03/02/1833 Date Transcribed: 03/02/181827 Cyber Security Engineer: Signed ECHOCARDIOGRAM COMPLETE Observed: 03/01/2018 Status: F Source: [place] 4:26 PM [facility] REPOSITORY [facility] Cardiovascular Services [address] [place] [address] Echo Complete 03/01/18 1459 MR#: [id number] Acct: [id number] Name: DIMITRIS OCHOA Rep #: [id number] : 1945 72 From: Matt Cates MD Attending Dr: Matt Cates MD Status: REG CLI Ordering Dr: Matt Cates MD Date: 03/01/18 Location: [facility] Sex: M C Admitted: Reason For Study: Afib-Flutter Procedure This was a 2D Doppler, Color Flow transthoracic echocardiogram. Exam performed in department. Left Ventricle Mild concentric left ventricular hypertrophy. The estimated ejection fraction is 65 %. Stage 2 diastolic dysfunction. No regional wall motion abnormalities noted. Right Ventricle Normal size and thickness. Normal systolic function. Atria Normal left atrium. Normal right atrium. Normal atrial septum. Mitral Valve The mitral valve is structurally normal. No prolapse or stenosis seen. Tricuspid Valve Normal tricuspid valve. Trivial tricuspid valve insufficiency. Right ventricular systolic pressure estimated to be 36 mmHg. Aortic Valve Trisinus/trileaflet aortic valve. Mild diffuse aortic valve thickening. Trivial aortic valve insufficiency. Pulmonic Valve Normal pulmonic valve. Great Vessels Normal aortic root. Mild atherosclerosis of the aortic arch. Normal inferior vena cava. Inferior vena cava collapse with sniff. Pericardium/Pleural No pericardial effusion. MMode/2D Measurements AND Calculations LVIDd: 4.9 cm IVSd: 1.4 cm Ao root diam: 4.6 cm LVIDs: 3.2 cm LVPWd: 1.4 cm LA dimension: 4.5 cm FS: 34.1 % LAV(MOD-sp4): 44.8 ml LVAd ap4: 43.5 cm2 SV(MOD-sp4): 95.1 ml EDV(MOD-sp4): 172.8 ml EDV(sp4-el): 175.4 ml LVAs ap4: 25.6 cm2 ESV(MOD-sp4): 77.6 ml ESV(sp4-el): 78.2 ml EF(MOD-sp4): 55.1 % EF(sp4-el): 55.4 % SV(sp4-el): 97.2 ml LA A4 area: 18.8 cm2 RA A4 area: 20.0 cm2 Time Measurements MV dec time: 0.23 sec Doppler Measurements AND Calculations MV E max negrita: 90.1 cm/sec Lat Peak E' Negrita: 10.4 cm/sec Med Peak E' Negrita: 8.8 cm/sec MV A max negrita: 74.2 cm/sec E/E' lat: 8.7 E/E' med: 10.2 MV E/A: 1.2 MV V2 max: 104.0 cm/sec MV P1/2t max negrita: 103.0 cm/sec Ao V2 max: 152.2 cm/sec MV max P.3 mmHg MV P1/2t: 136.3 msec Ao max P.3 mmHg MV V2 mean: 52.3 cm/sec MV dec slope: 221.5 cm/sec2 Ao V2 mean: 90.6 cm/sec MV mean P.3 mmHg MVA(P1/2t): 1.6 cm2 Ao mean P.1 mmHg MV V2 VTI: 43.9 cm Ao V2 VTI: 30.8 cm LV V1 max: 123.9 cm/sec PA V2 max: 99.2 cm/sec TR max negrita: 277.8 cm/sec LV V1 max P.1 mmHg TR max P.9 mmHg LV V1 mean P.9 mmHg LV V1 mean: 78.6 cm/sec LV V1 VTI: 27.8 cm Interpretation Summary Mild concentric left ventricular hypertrophy. The estimated ejection fraction is 65 %. Stage 2 diastolic dysfunction. Right ventricular systolic pressure estimated to be 36 mmHg. Trivial aortic valve insufficiency. Compared to echo report dated 07/28/2015, no appreciable changes noted. Aortic root is about the same at 4.6 cm. Pt appears to be in NSR. Ordering Physician: Matt Cates Referring Physician: Matt Cates Performed By: Brayden Holcomb RCS 03/01/18 1625 Date Matt Cates MD CC: Matt Cates MD; Fartun Fitzpatrick MD Date Dictated: 03/01/18 1459 Date Transcribed: 03/01/181624 Cyber Security Engineer: Signed CARDIOLOGY VISIT Observed: 02/21/2018 Status: F Source: [place] REPORT 10:18 AM [facility] REPOSITORY [facility] [address] [place] [address] OFFICE VISIT Date of Service: 02/21/18 MR#: [id number] Acct: [id number] Name: DIMITRIS OCHOA Rep #: [id number] : 1945 Provider: Mtat Cates MD Age/Sex: 72/M Location: [facility] Status: Signed HPI HPI Chief Complaint: Routine f/u Details: Referring physician: Dr. Fartun Fitzpatrick It was a pleasure seeing your patient, Dimitris Ochoa, today in our office. As you know, he is a very pleasant 72-year-old morbidly obese gentleman, who is returning for followup of his paroxysmal atrial tachycardia and paroxysmal atrial fibrillation. he is status post DC cardioversion in 1999, with history of concealed accessory pathway status post ablation. Since his last visit Mr. Ochoa has had no chest, neck, jaw, or arm discomfort to suggest angina, increase in shortness of breath or dyspnea on exertion, paroxysmal nocturnal dyspnea, orthopnea, or pedal edema. He denies palpitations, near syncope, or syncope and states his pulse has been regular on daily checks. due to his knees, he has not been exercising nearly as much as last time I saw him. he has also been taking Lipitor 2 times a week due to significant myalgias. He has failed other Statins as well. on further history, he had a catheterization done in September 2006 which demonstrated mild nonobstructive disease of his LAD and left circumflex, and his last echocardiogram was 11/03/11 which demonstrated an EF of 60%. His last stress test was In April 2013which was negative, and prior to that his previous stress test on 11/03/11 was negative for inducible ischemia. Patient underwent treadmill/echocardiogram 07/30/15 which was abnormal for ischemia by EKG criteria however there were no evidence of wall motion abnormalities. In order to ensure proper usage of flecainide therapy, I recommended he undergo a repeat left heart catheterization to evaluate for possible coronary disease which may cause us to change him to a different antiarrhythmic. This was performed which showed minimal nonobstructive coronary disease but a significant tortuosity of his aortoiliac system requiring extended length catheters. LV function was normal and flecainide was continued. Since our last visit, the patient presented with right leg swelling, and underwent a Doppler on 08/24/15 which demonstrated no evidence of DVT, pseudoaneurysm, or AV fistula. From a cardiac standpoint he denies any chest pain, angina, palpitations, lightheadedness or dizziness. He is taking and tolerating his medicines well. He denies any lightheadedness, dizziness, lower extremity edema, presyncope or syncope despite his bradycardia. He is actually doing quite well. Patient exercises as best he can by walking but has bilateral knee pain, and may require bilateral knee replacement this fall. In our office today his blood pressure is 120/70 and pulse is 44 and regular. His physical exam is as below. His lipids a as of 02/18/16 showed HDL of 52 and LDL of 72. This is well he was on Zetia. repeat lipids dated 09/02/16 showed an LDL of 72 and HDL of 60. Repeat lipids as of 12/27/17 show an LDL of 89 and HDL of 51. EKG previously demonstrated sinus bradycardia, QT corrected of 41 ms No previous CA noted. Intake Vital Signs02/21/18 Height 6 ft 4 in 02/21/18 Weight: 317 lb 02/21/18 Body Mass Index (BMI) 38.5 02/21/18 Blood Pressure 120/70 Intake Visit Reasons: 6 M FU Manufacturing Technologist Required: No Is patient in pain?: No Allergies pravastatin Adverse Reaction (Intermediate, Verified 02/21/18 10:05) myalgias simvastatin [From Zocor] Adverse Reaction (Intermediate, Verified 02/21/18 10:05) Myalgias Medications Aspirin [Adult Low Dose Aspirin EC] 81 mg PO DAILY 08/19/15 [History Confirmed 02/21/18] Hydrochlorothiazide [Hctz] 12.5 mg PO DAILY 08/19/15 [History Confirmed 02/21/18] Latanoprost 0.005% [Xalatan Opthalmic] 1 drp EACH EYE UD 08/19/15 [History Confirmed 02/21/18] Levothyroxine Sodium [Levoxyl] 88 mcg PO DAILY 08/19/15 [History Confirmed 02/21/18] Nabumetone [Relafen] 500 mg PO BID 08/19/15 [History Confirmed 02/21/18] Potassium Chloride [K-Dur] 10 meq PO DAILY 08/19/15 [History Confirmed 02/21/18] metoprolol succinate ER 25 mg tablet,extended release 24 hr 25 mg PO QDAY tab 08/05/17 [History Confirmed 02/21/18] warfarin 5 mg tablet 5 mg PO .COMPLEX 08/05/17 [History Confirmed 02/21/18] flecainide 100 mg tablet 100 mg PO BID #180 tab 08/08/17 [Rx Confirmed 02/21/18] ezetimibe 10 mg tablet 10 mg PO DAILY #90 tab 02/06/18 [Rx Confirmed 02/21/18] moexipril 15 mg tablet 15 mg PO QDAY #90 tab 02/09/18 [Rx Confirmed 02/21/18] PFSH Medical History Hyperlipidemia (Chronic) Hypertension (Chronic) 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) History of pulmonary embolism (Chronic) Paroxysmal atrial tachycardia (Chronic) jail current use of anticoagulant (Chronic) Paroxysmal atrial fibrillation (Chronic) Ascending aortic aneurysm (Chronic) Surgical History History of left heart catheterization (Chronic) History of radiofrequency ablation procedure for cardiac arrhythmia (Chronic 03/2000) H/O umbilical hernia repair (Chronic) History of appendectomy (Chronic) History of tonsillectomy (Chronic) Family History Father CAD (coronary artery disease) Mother Arrhythmia Social History Smoking Status: Former smoker pack-years: 5 ROS Const Const: Negative for fatigue, weakness, body ache, fever(s), headache(s), chills, frequent falls, night sweats, daytime sleepiness, difficulty sleeping, excessive sweating, weight gain, weight loss, increased appetite, poor appetite, anorexia or other Eyes Eyes: Negative for blind spots, loss of peripheral vision, transient loss of vision, blurry vision, change in vision, double vision, floaters, tunnel vision or other ENT ENT: Negative for headache(s), dizziness, hearing loss, tinnitus, Nosebleed/epistaxis, balance problems, post nasal drip, lip swelling, tongue swelling, bleeding gums, hoarseness, neck pain, dry mouth or other Cardio Chest Pain: No Palpitations: No Edema: None Muscle aches with walking: None Resp Respiratory: Negative for SOB with activity, SOB at rest, SOB orthopnea\SOB lying down, Coughing up blood/hemoptysis, chest congestion, pain on inspiration, snoring, stridor, wheezing, crackles, paroxysmal nocturnal dyspnea or other GI GI: Negative nausea, vomiting, heartburn, constipation, belching, bloating, cramping, vomiting blood/hematemesis, bright, red blood in stools, black,tarry stools, loose stools, Difficulty Swallowing or other : Negative for hematuria, frequent nighttime urination/ nocturia, erectile dysfunction or abnormal vaginal bleeding Musc Musc: Negative for balance problems, muscle aches/ myalgia, muscle weakness or joint pain Skin Skin: Negative redness, non-healing lesions, rash, unusual bruising, skin ulcer, wounds, jaundice or other Neuro Neuro: Negative for weakness, headache(s), frequent falls, blurry vision, double vision, dizziness, lightheadedness, near syncope, syncope, orthostatic symptoms, confusion, memory loss, restless legs, vertigo, seizures, lack of coordination or other Gee Hematologic/Lymphatic: Negative for easy bleeding, easy bruising, enlarged lymph nodes or other Endo Endo: Negative for fatigue, excessive sweating, cold intolerance, heat intolerance, flushing, increased thirst/drinking, increased hunger, hair loss, hair growth or other Psych Psych: Negative for anxiety, depression, thoughts of harming anyone, thoughts of harming yourself, visual hallucinations, panic attacks or audible hallucinations Allergy Allergy/Immunology: Negative for lip swelling, Negative for tongue swelling, Negative for rash, Negative for throat swelling, Negative for hives Cardiology Exam Const Appearance: cooperative, healthy appearing and no acute distress Nutritional Appearance: well nourished Orientation: alert, oriented x3 and oriented to person Head Head: normal to inspection, atraumatic and normocephalic Nose: external nose normal Face and Sinus: face symmetric Mouth: oral mucosae normal Eyes General: appearance normal, both eyes and all related structures Eyelids: eyelids normal Conjunctivae: conjunctivae normal Pupils: PERRL and normal by confrontation EOM: EOM intact bilaterally Neck Neck: normal visual inspection and full ROM Carotids: normal carotid upstroke Chest Chest inspection: normal inspection of the chest Auscultation: Bilateral: Clear to Auscultation Cardio Palpation: normal PMI Rate: regular rate Rhythm: regular rhythm Heart sounds: S1 normal and S2 normal GI GI: normal to inspection, no hepatosplenomegaly and bowel sounds present Neuro General: alert, oriented x3, awake, CN's II-XI intact bilaterally and moves all extremities Skin Skin: no rashes or lesions noted Extremities Pulses: Normal: Right Femoral Pulse, Left Femoral Pulse, Right Dorsalis Pedis Pulse, Left Dorsalis Pedis Pulse, Right Posterior Tibial Pulse, Left Posterior Tibial Pulse, Right Radial Pulse, Left Radial Pulse Lower Extremity Edema: None: Bilateral Psych Psychological: normal affect Assessment AND Plan 1. Atherosclerotic heart disease of chicken [place] coronary artery without angina pectoris I25.10 Nonobstructive CAD per cath 10/05/[address] Arana and 08/20/[address] [facility] per Dr. Cates Plan 1. Coronary artery disease: No exertional anginal symptoms at this time. Patient may require bilateral knee replacement in the fall. As part of his coronary surveillance for his flecainide therapy I recommend he undergo a modified Kael treadmill echocardiogram to determine if he has had any progression of his coronary disease identified by catheterization in 2016. If this is grossly abnormal for ischemia, I would recommend repeat heart catheterization. If it is negative for inducible ischemia, he will be deemed at low risk for noncardiac surgery. In the meantime he will continue his hydrochlorothiazide, metoprolol. Orders Orders: 2. Paroxysmal atrial fibrillation I48.0 Plan 2. Paroxysmal atrial fibrillation: Currently normal sinus rhythm by physical exam. We will continue flecainide and metoprolol. His blood pressure is well controlled. He is asymptomatic from a bradycardic standpoint. As part of his cardiac surveillance for ongoing flecainide therapy as well as to assess his preoperative risk stratification for upcoming bilateral knee surgery he will undergo a repeat modified Kael treadmill echocardiogram. Continue warfarin therapy. Orders Orders: 3. Hyperlipidemia E78.5 Plan 3. Hyperlipidemia: His LDL and HDL cholesterol are at goal. Continue Zetia. 4. Return office in 6 months. This note was generated using a voice recognition system and there may be incorrect words, spelling or punctuation that were not noted when reviewing the office note prior to saving. Orders Orders: Plan Detail Other Orders Orders: Follow Up +6M (Ugo) Coding Level of Care Code Off vis,est,level 3 Diagnoses Atherosclerotic heart disease of [place] coronary artery without angina pectoris I25.10 Paroxysmal atrial fibrillation I48.0 Hyperlipidemia E78.5 Coding Level of Care Code Off vis,est,level 3 Diagnoses Atherosclerotic heart disease of [place] coronary artery without angina pectoris I25.10 Paroxysmal atrial fibrillation I48.0 Hyperlipidemia E78.5 02/21/18 1018 <Electronically signed by Matt Cates MD> Date Matt Cates MD Cosigner Signature: Date (if applicable) CC: Fartun Fitzpatrick MD PROGRESS Observed: 02/04/2018 Status: COMPLETED Source: [place] 12:16 PM [facility] REPOSITORY HNO ID: [id number] Author: Wilner Chew Service: (none) Author Type: Physician Type: Progress Notes Filed: 02/04/2018 12:18 PM Note Text: PROCEDURE- JOINT INJECTION Joint Sites: knee On exam, the joint is cool to touch without sign of infection. Flexion is limited and is uncomfortable. Crepitation is present with ROM. The proposed risks versus benefits of local anesthetic and steroid injection were discussed in detail. The patient verbalizes understanding and elects to proceed with the injection. The procedure was verified with the patient, including the correct injection site, and confirmation with both the patient and passport support associate. Under sterile technique following verbal consent the patient underwent a bilateral knee injection with 2cc of 6 mg/ml Celestone with 3 cc 1% Lidocaine and tolerated the procedure well without complications. The injection was performed through a superior-lateral portal to the knee without incident. The patient tolerated the injection well. Verbal instructions on post-injection care were given. Wilner Chew MD PROGRESS Observed: 01/30/2018 Status: COMPLETED Source: [place] 10:06 AM [facility] REPOSITORY HNO ID: [id number] Author: Anabel (Beef Trimmer) Soliz Service: (none) Author Type: Nurse Specialist Type: Progress Notes Filed: 01/30/2018 10:12 AM Note Text: OUTPATIENT VISIT DATE January 30, 2018 OUTPATIENT VISIT TYPE ESTABLISHED PRIMARY CARE PHYSICIAN: Fartun Fitzpatrick MD CHIEF COMPLAINT: Patient presents with: F/U 6 Month History of Present Illness: Dimitris Ochoa is a 72 year old male who was last seen 07/2017 by Fartun Fitzpatrick MD. 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 and Other Lower Urinary Tract Symptoms (Luts) Atrial Fibrillation (Hcc) Obesity, Class Iii, Bmi 40-49.9 (Morbid Obesity) (Hcc) Mixed Hyperlipidemia Unspecified Gastritis and Gastroduodenitis Without Mention of Hemorrhage Osteoarthrosis, Unspecified Whether Generalized Or Localized, Other Specified Sites Essential Hypertension Bladder Neck Obstruction H/O: Hematuria Hypothyroidism Umbilical Hernia Without Mention of Obstruction Or Gangrene Paroxysmal Supraventricular Tachycardia (Hcc) Coronary Atherosclerosis of Unspecified Type of Vessel, Solomon Or Graft Other Pulmonary Embolism and Infarction Heel Spur Hypercholesterolemia Imaging Abnormality Anticoagulated On Coumadin Since the last visit, he states that he's been in his usual state of health. Without current complaints other than itching of hands and feet. No rash present, no noted redness or irritation, no change in soaps or detergents, no use of fragrance or creams. Does have knee pain, considering total knee replacement in near future with Dr. Chew. Limited mobility and exercise due to this. Follow-up with Dr. Yeung at [facility] for cardiology. No recent hospital or ED visits. No new medical problems or medications. Able to obtain medications. No problems with taking medications or note side effects. PAST MEDICAL HISTORY Diagnosis Date - Abdominal pain, left lower quadrant - Abscess of anal and rectal regions - Anticoagulated on Coumadin 11/28/2016 - Diverticulosis of colon (without mention of hemorrhage) - Dizziness and giddiness - Generalized osteoarthrosis, unspecified site - Hypothyroidism 04/07/2010 - Lipoma of other skin and subcutaneous tissue - Paroxysmal ventricular tachycardia (HCC) Dr. Arana in past; currently Dr. Cates - [facility] - PAST MEDICAL HISTORY OF glaucoma - [facility] - PAST MEDICAL HISTORY OF blood clots in lungs AND legs - Sebaceous cyst - Unspecified essential hypertension - Unspecified hypothyroidism PAST SURGICAL HISTORY Procedure Laterality Date - APPENDECTOMY - COLONOSCOP W/ OR W/O [facility] SPEC 10/21/2006 Colonoscopy - PAST SURGICAL HISTORY OF 10/11/02 left carpal tunnel - REPAIR UMBILICAL EDMUNDO,5+Y/O,REDUC 06/15/10 with mesh FAMILY HISTORY Problem Relation Age of Onset - Stroke Father - Hypertension Mother - Hypertension Father - Heart Paternal Uncle Social History Substance Use Topics - Smoking status: Former Smoker Packs/day: 1.50 Years: 4.00 Types: Cigarettes Quit date: 07/25/1971 - Smokeless tobacco: Never Used - Alcohol use Yes Comment: 2 drinks a month ALLERGIES: ALLERGIES Allergen Reactions - Levaquin [Levofloxa* Other: See Comments Reports nightmares - Lipitor [Atorvastat* Myalgia stopped by Dr. Cates - Lovastatin Other: See Comments muscle aches - Pravastatin Other: See Comments muscle aches - Simvastatin Other: See Comments muscle aches - Pbjglvr-Fhw-Kdg Red* Myalgia tried them all - Ceftin [Cefuroxime] Diarrhea MEDICATIONS moexipril (UNIVASC) 15 mg tablet Take 15 mg by mouth once daily. hydroCHLOROthiazide (HYDRODIURIL, ESIDRIX) 25 mg tablet TAKE ONE-HALF (1/2) TABLET DAILY levothyroxine (SYNTHROID) 88 mcg tablet TAKE ONE TABLET ONCE DAILY (ADD ONE-HALF (1/2) TABLET ONCE WEEKLY TOTAL SEVEN AND ONE-HALF TABLETS PER WEEK) warfarin (COUMADIN) 5 mg tablet Take 1 tablet (5 mg) on , Tuesday, and 1 and one half tablets (7.5 mg) all other days, or as directed nabumetone (RELAFEN) 500 mg tablet TAKE 1 TABLET TWICE A DAY WITH MEALS metoprolol succinate ER (TOPROL XL) 25 mg 24 hr tablet Take 1 tablet by mouth once daily. ezetimibe (ZETIA) 10 mg tablet Take 1 tablet by mouth once daily. latanoprost(XALATAN 0.005 % EYE DROPS) Take as directed potassium chloride(KLOR-CON 10 10 MEQ TAB) Take one(1) tablet daily. aspirin(ADULT ASPIRIN EC LOW STRENGTH 81 MG TAB, DELAYED RELEASE) Take one(1) tablet daily. TAMBOCOR 100 MG TAB take one (1) tablet twice a day zoster vaccine, recombinant, adjuvanted, (SHINGRIX) 50 mcg/0.5 mL injection Inject 0.5 mL intramuscularly one time only for 1 dose. fluticasone (FLONASE) 50 mcg/actuation nasal spray Use 2 Sprays in each nostril once daily. Rinse mouth after use. As needed REVIEW OF SYSTEMS: GENERAL: Negative for: Weight loss or gain, Fever or Chills, Weakness and Sleep difficulties. Physical Examination: BP 130/84 Pulse 48 Resp 20 Wt 318 lb (144.2kg) BP w/Orthostatic Vitals Date and Time Orthostatic BP Orthostatic Pulse BP Pulse BP Position BP Site BP Cuff Size 01/30/18909 -- -- 130/84 (!) 48 Sitting Left Arm Regular Adult Peak Flow Date and Time PF Resp 01/30/18909 -- 20 General appearance: Well appearing, alert, in no acute distress, obese, well-hydrated . Skin: Skin color, texture, turgor normal, no suspicious rashes or lesions, dry skin hands, feet, legs Neck: Supple, no adenopathy; thyroid symmetric, normal size, no bruits Lungs: Lungs clear to auscultation. No wheezing, rhonchi, rales Heart: Irregular RR without murmur, gallop, or rubs. Abdomen: Abdomen soft, non-tender. Bowel sounds normal. No masses, organomegaly Extremities: No edema, skin discoloration, clubbing or cyanosis. Good capillary refill. Peripheral pulses: Normal Neuro: Gait normal.Sensation grossly intact. Reviewed chart, outside records, tests I personally interviewed, confirmed and edited the above information if obtained by others. TESTING: Glucose (mg/dL) Date Value 07/27/2017 55 Potassium (mmol/L) Date Value 07/27/2017 4.4 Sodium (mmol/L) Date Value 07/27/2017 141 Chloride (mmol/L) Date Value 07/27/2017 102 CO2 (mmol/L) Date Value 07/27/2017 28 Creatinine (mg/dL) Date Value 11/15/2017 1.31 BUN (mg/dL) Date Value 07/27/2017 20 Anion Gap (mmol/L) Date Value 07/27/2017 11 Calcium (mg/dL) Date Value 07/27/2017 9.4 Glucose (mg/dL) Date Value 07/27/2017 55 Potassium (mmol/L) Date Value 07/27/2017 4.4 Sodium (mmol/L) Date Value 07/27/2017 141 Chloride (mmol/L) Date Value 07/27/2017 102 CO2 (mmol/L) Date Value 07/27/2017 28 Creatinine (mg/dL) Date Value 11/15/2017 1.31 BUN (mg/dL) Date Value 07/27/2017 20 Anion Gap (mmol/L) Date Value 07/27/2017 11 Calcium (mg/dL) Date Value 07/27/2017 9.4 Protein, Total (g/dL) Date Value 07/27/2017 7.3 Albumin (g/dL) Date Value 07/27/2017 3.8 Bilirubin, Total (mg/dL) Date Value 07/27/2017 0.8 Alkaline Phosphatase (U/L) Date Value 07/27/2017 56 AST (U/L) Date Value 07/27/2017 26 ALT (U/L) Date Value 07/27/2017 23 Hemoglobin (g/dL) Date Value 07/27/2017 14.4 Hematocrit (%) Date Value 07/27/2017 44.9 WBC (k/uL) Date Value 07/27/2017 5.83 Cholesterol, Total (mg/dL) Date Value 01/06/2015 155 HDL Cholesterol (mg/dL) Date Value 01/06/2015 47 LDL Cholesterol (mg/dL) Date Value 01/06/2015 99 Triglyceride (mg/dL) Date Value 01/06/2015 43 No results found for: HBA1C Ejection Fraction: No results found IMPRESSION: Mr. Ochoa is a 72 year old man presents for routine follow up visit. After my examination and review of data, I make the following recommendations. PLAN AND RECOMMENDATIONS: 1. Chronic atrial fibrillation (HCC) - ICD9: 427.31, ICD10: I48.2 (primary diagnosis) Following with [facility], 2. Class 3 severe obesity due to excess calories without serious comorbidity with body mass index (BMI) of 40.0 to 44.9 in adult (HCC) - ICD9: 278.01, V85.41, ICD10: E66.01, Z68.41 Limited exercise due to knee pain, knee replacement is being considered for the near future. 3. Essential hypertension - ICD9: 401.9, ICD10: I10 - good control - Encouraged dietary sodium restriction/DASH diet - Recommended regular aerobic exercise. - Goal of BP <130/80 4. Acquired hypothyroidism - ICD9: 244.9, ICD10: E03.9 Follow up 6 months with Fartun Fitzpatrick MD Advised to go to ER if develops chest pain, shortness of breath, or severe worsening of symptoms. Discussed risks, benefits, alternatives, and potential side effects of medications. Mr. Ochoa expressed understanding and agreed with the plan. Anabel Soliz APRN.CNS CNOV Observed: 01/30/2018 Status: COMPLETED Source: [place] 9:00 AM [facility] REPOSITORY Office Visit (INTMWS) DIMITRIS OCHOA ([id number]) 1945 M Date Time Provider Department 01/30/18 9:00 AM ANABEL SOLIZ (LISA) INTMWS During your visit today, we recorded the following information about you: Pulse Respiration Blood pressure Weight 48/minute 20/minute 130/84 144.2 kg Anabel Soliz APRN.CNS 01/30/2018 10:01 AM Signed Try eucerin cream, aquaphor or vaseline on palms and feet, dry skin Anabel Soliz APRN.CNS 01/30/2018 10:12 AM Signed OUTPATIENT VISIT DATE January 30, 2018 OUTPATIENT VISIT TYPE ESTABLISHED PRIMARY CARE PHYSICIAN: Fartun Fitzpatrick MD CHIEF COMPLAINT: Patient presents with: F/U 6 Month History of Present Illness: Dimitris Ochoa is a 72 year old male who was last seen 07/2017 by Fartun Fitzpatrick MD. 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 and Other Lower Urinary Tract Symptoms (Luts) Atrial Fibrillation (Hcc) Obesity, Class Iii, Bmi 40-49.9 (Morbid Obesity) (Hcc) Mixed Hyperlipidemia Unspecified Gastritis and Gastroduodenitis Without Mention of Hemorrhage Osteoarthrosis, Unspecified Whether Generalized Or Localized, Other Specified Sites Essential Hypertension Bladder Neck Obstruction H/O: Hematuria Hypothyroidism Umbilical Hernia Without Mention of Obstruction Or Gangrene Paroxysmal Supraventricular Tachycardia (Hcc) Coronary Atherosclerosis of Unspecified Type of Vessel, Solomon Or Graft Other Pulmonary Embolism and Infarction Heel Spur Hypercholesterolemia Imaging Abnormality Anticoagulated On Coumadin Since the last visit, he states that he's been in his usual state of health. Without current complaints other than itching of hands and feet. No rash present, no noted redness or irritation, no change in soaps or detergents, no use of fragrance or creams. Does have knee pain, considering total knee replacement in near future with Dr. Chew. Limited mobility and exercise due to this. Follow-up with Dr. Yeung at [facility] for cardiology. No recent hospital or ED visits. No new medical problems or medications. Able to obtain medications. No problems with taking medications or note side effects. PAST MEDICAL HISTORY Diagnosis Date - Abdominal pain, left lower quadrant - Abscess of anal and rectal regions - Anticoagulated on Coumadin 11/28/2016 - Diverticulosis of colon (without mention of hemorrhage) - Dizziness and giddiness - Generalized osteoarthrosis, unspecified site - Hypothyroidism 04/07/2010 - Lipoma of other skin and subcutaneous tissue - Paroxysmal ventricular tachycardia (HCC) Dr. Arana in past; currently Dr. Cates - [facility] - PAST MEDICAL HISTORY OF glaucoma - PM - PAST MEDICAL HISTORY OF blood clots in lungs AND legs - Sebaceous cyst - Unspecified essential hypertension - Unspecified hypothyroidism PAST SURGICAL HISTORY Procedure Laterality Date - APPENDECTOMY - COLONOSCOP W/ OR W/O [facility] SPEC 10/21/2006 Colonoscopy - PAST SURGICAL HISTORY OF 10/11/02 left carpal tunnel - REPAIR UMBILICAL EDMUNDO,5+Y/O,REDUC 06/15/10 with mesh FAMILY HISTORY Problem Relation Age of Onset - Stroke Father - Hypertension Mother - Hypertension Father - Heart Paternal Uncle Social History Substance Use Topics - Smoking status: Former Smoker Packs/day: 1.50 Years: 4.00 Types: Cigarettes Quit date: 07/25/1971 - Smokeless tobacco: Never Used - Alcohol use Yes Comment: 2 drinks a month ALLERGIES: ALLERGIES Allergen Reactions - Levaquin [Levofloxa* Other: See Comments Reports nightmares - Lipitor [Atorvastat* Myalgia stopped by Dr. Cates - Lovastatin Other: See Comments muscle aches - Pravastatin Other: See Comments muscle aches - Simvastatin Other: See Comments muscle aches - Lehujfu-Cmz-Qpu Red* Myalgia tried them all - Ceftin [Cefuroxime] Diarrhea MEDICATIONS moexipril (UNIVASC) 15 mg tablet Take 15 mg by mouth once daily. hydroCHLOROthiazide (HYDRODIURIL, ESIDRIX) 25 mg tablet TAKE ONE-HALF (1/2) TABLET DAILY levothyroxine (SYNTHROID) 88 mcg tablet TAKE ONE TABLET ONCE DAILY (ADD ONE-HALF (1/2) TABLET ONCE WEEKLY TOTAL SEVEN AND ONE-HALF TABLETS PER WEEK) warfarin (COUMADIN) 5 mg tablet Take 1 tablet (5 mg) on , Tuesday, and 1 and one half tablets (7.5 mg) all other days, or as directed nabumetone (RELAFEN) 500 mg tablet TAKE 1 TABLET TWICE A DAY WITH MEALS metoprolol succinate ER (TOPROL XL) 25 mg 24 hr tablet Take 1 tablet by mouth once daily. ezetimibe (ZETIA) 10 mg tablet Take 1 tablet by mouth once daily. latanoprost(XALATAN 0.005 % EYE DROPS) Take as directed potassium chloride(KLOR-CON 10 10 MEQ TAB) Take one(1) tablet daily. aspirin(ADULT ASPIRIN EC LOW STRENGTH 81 MG TAB, DELAYED RELEASE) Take one(1) tablet daily. TAMBOCOR 100 MG TAB take one (1) tablet twice a day zoster vaccine, recombinant, adjuvanted, (SHINGRIX) 50 mcg/0.5 mL injection Inject 0.5 mL intramuscularly one time only for 1 dose. fluticasone (FLONASE) 50 mcg/actuation nasal spray Use 2 Sprays in each nostril once daily. Rinse mouth after use. As needed REVIEW OF SYSTEMS: GENERAL: Negative for: Weight loss or gain, Fever or Chills, Weakness and Sleep difficulties. Physical Examination: BP 130/84 Pulse 48 Resp 20 Wt 318 lb (144.2kg) BP w/Orthostatic Vitals Date and Time Orthostatic BP Orthostatic Pulse BP Pulse BP Position BP Site BP Cuff Size 01/30/18909 -- -- 130/84 (!) 48 Sitting Left Arm Regular Adult Peak Flow Date and Time PF Resp 01/30/18909 -- 20 General appearance: Well appearing, alert, in no acute distress, obese, well-hydrated . Skin: Skin color, texture, turgor normal, no suspicious rashes or lesions, dry skin hands, feet, legs Neck: Supple, no adenopathy; thyroid symmetric, normal size, no bruits Lungs: Lungs clear to auscultation. No wheezing, rhonchi, rales Heart: Irregular RR without murmur, gallop, or rubs. Abdomen: Abdomen soft, non-tender. Bowel sounds normal. No masses, organomegaly Extremities: No edema, skin discoloration, clubbing or cyanosis. Good capillary refill. Peripheral pulses: Normal Neuro: Gait normal.Sensation grossly intact. Reviewed chart, outside records, tests I personally interviewed, confirmed and edited the above information if obtained by others. TESTING: Glucose (mg/dL) Date Value 07/27/2017 55 Potassium (mmol/L) Date Value 07/27/2017 4.4 Sodium (mmol/L) Date Value 07/27/2017 141 Chloride (mmol/L) Date Value 07/27/2017 102 CO2 (mmol/L) Date Value 07/27/2017 28 Creatinine (mg/dL) Date Value 11/15/2017 1.31 BUN (mg/dL) Date Value 07/27/2017 20 Anion Gap (mmol/L) Date Value 07/27/2017 11 Calcium (mg/dL) Date Value 07/27/2017 9.4 Glucose (mg/dL) Date Value 07/27/2017 55 Potassium (mmol/L) Date Value 07/27/2017 4.4 Sodium (mmol/L) Date Value 07/27/2017 141 Chloride (mmol/L) Date Value 07/27/2017 102 CO2 (mmol/L) Date Value 07/27/2017 28 Creatinine (mg/dL) Date Value 11/15/2017 1.31 BUN (mg/dL) Date Value 07/27/2017 20 Anion Gap (mmol/L) Date Value 07/27/2017 11 Calcium (mg/dL) Date Value 07/27/2017 9.4 Protein, Total (g/dL) Date Value 07/27/2017 7.3 Albumin (g/dL) Date Value 07/27/2017 3.8 Bilirubin, Total (mg/dL) Date Value 07/27/2017 0.8 Alkaline Phosphatase (U/L) Date Value 07/27/2017 56 AST (U/L) Date Value 07/27/2017 26 ALT (U/L) Date Value 07/27/2017 23 Hemoglobin (g/dL) Date Value 07/27/2017 14.4 Hematocrit (%) Date Value 07/27/2017 44.9 WBC (k/uL) Date Value 07/27/2017 5.83 Cholesterol, Total (mg/dL) Date Value 01/06/2015 155 HDL Cholesterol (mg/dL) Date Value 01/06/2015 47 LDL Cholesterol (mg/dL) Date Value 01/06/2015 99 Triglyceride (mg/dL) Date Value 01/06/2015 43 No results found for: HBA1C Ejection Fraction: No results found IMPRESSION: Mr. Ochoa is a 72 year old man presents for routine follow up visit. After my examination and review of data, I make the following recommendations. PLAN AND RECOMMENDATIONS: 1. Chronic atrial fibrillation (HCC) - ICD9: 427.31, ICD10: I48.2 (primary diagnosis) Following with [facility], 2. Class 3 severe obesity due to excess calories without serious comorbidity with body mass index (BMI) of 40.0 to 44.9 in adult (HCC) - ICD9: 278.01, V85.41, ICD10: E66.01, Z68.41 Limited exercise due to knee pain, knee replacement is being considered for the near future. 3. Essential hypertension - ICD9: 401.9, ICD10: I10 - good control - Encouraged dietary sodium restriction/DASH diet - Recommended regular aerobic exercise. - Goal of BP <130/80 4. Acquired hypothyroidism - ICD9: 244.9, ICD10: E03.9 Follow up 6 months with Fartun Fitzpatrick MD Advised to go to ER if develops chest pain, shortness of breath, or severe worsening of symptoms. Discussed risks, benefits, alternatives, and potential side effects of medications. Mr. Ochoa expressed understanding and agreed with the plan. Anabel Soliz APRN.TOLL TEST WORKER Referring Provider: FARTUN FITZPATRICK [[id number]] Allergies As of Date: 01/30/2018 Noted Allergy Reaction LEVAQUIN (LEVOFLOXACIN) 08/24/2013 14 - Other: See Comments Comments: Reports nightmares LIPITOR (ATORVASTATIN) 11/05/2015 17 - Myalgia Comments: stopped by Dr. Cates LOVASTATIN 02/18/2014 14 - Other: See Comments Comments: muscle aches PRAVASTATIN 02/18/2014 14 - Other: See Comments Comments: muscle aches SIMVASTATIN 02/18/2014 14 - Other: See Comments Comments: muscle aches TOUMABW-DOU-IQG REDUCTASE INHIBIT*11/05/2015 17 - Myalgia Comments: tried them all CEFTIN (CEFUROXIME) 02/22/2011 6 - Diarrhea Date Reviewed: 01/30/2018 Reviewed by: Deidre Leone LPN - Fully Assessed Reason for Visit: F/U 6 Month [444] Primary Visit Diagnosis:Chronic atrial fibrillation (HCC) [I48.2] Other Visit Diagnoses:Class 3 severe obesity due to excess calories without serious comorbidity with body mass index (BMI) of 40.0 to 44.9 in adult (HCC) [E66.01, Z68.41] Essential hypertension [I10] Acquired hypothyroidism [E03.9] Order(s):zoster vaccine, recombinant, adjuvanted, (SHINGRIX) 50 mcg/0.5 mL injectionInject 0.5 mL intramuscularly one time only for 1 dose.Disp: 0.5 mLRfl: 0 Prescriptions as of 01/30/2018 Sig: MOEXIPRIL 15 MG TABLET Take 15 mg by mouth once randall* HYDROCHLOROTHIAZIDE 25 MG TAB* TAKE ONE-HALF (1/2) TABLET DA* LEVOTHYROXINE 88 MCG TABLET TAKE ONE TABLET ONCE DAILY (A* WARFARIN 5 MG TABLET Take 1 tablet (5 mg) on * NABUMETONE 500 MG TABLET TAKE 1 TABLET TWICE A DAY WIT* METOPROLOL SUCCINATE ER 25 MG* Take 1 tablet by mouth once d* EZETIMIBE 10 MG TABLET Take 1 tablet by mouth once d* * XALATAN 0.005 % EYE DROPS Take as directed * KLOR-CON 10 MEQ TABLET,EXTEND* Take one(1) tablet daily. * ADULT ASPIRIN EC LOW STRENGTH* Take one(1) tablet daily. * TAMBOCOR 100 MG TABLET take one (1) tablet twice a d* VARICELLA-ZOSTER GLYCOE VACC-* Inject 0.5 mL intramuscularly* FLUTICASONE 50 MCG/ACTUATION * Use 2 Sprays in each nostril * More... More... Problem List As Of Date 01/30/2018 Noted Resolved UNCERTAIN BEHAV NEOPL NERV SYS NEC [D43.9] INVALID FOR* More... BPH W URINARY OBS/LUTS [N40.1] INVALID FOR* Atrial Fibrillation [I48.91] INVALID FOR* More... Obesity, Class III, BMI 40-49.9 (morbid obesity*INVALID FOR* Mixed hyperlipidemia [E78.2] INVALID FOR* More... GASTRITIS/DUODEN NOS W/O HEMORRH [K29.70, K29.9*INVALID FOR* More... Routine general medical examination at a health*INVALID FOR*11/11/2014 More... OSTEOARTHROS NOS-OTHER SITE [M19.90] INVALID FOR* Essential hypertension [I10] INVALID FOR* More... Bladder Neck Obstruction [N32.0] INVALID FOR* H/O: Hematuria [Z87.448] INVALID FOR* Hypothyroidism [E03.9] INVALID FOR* Umbilical hernia without mention of obstruction*INVALID FOR* Paroxysmal supraventricular tachycardia [I47.1] INVALID FOR* More... Cor athrscl-uns vessel [I25.10] INVALID FOR* More... Other pulmonary embolism and infarction [I26.99]INVALID FOR* More... Heel spur [M77.30] INVALID FOR* Hypercholesterolemia [E78.00] INVALID FOR* Imaging abnormality [R93.8] INVALID FOR* Anticoagulated on Coumadin [Z51.81, Z79.01] INVALID FOR* Other instructions from your clinician: Try eucerin cream, aquaphor or vaseline on palms and feet, dry skin Prescriptions ordered this encounter Disp Refills Start End VARICELLA-ZOSTER GLYCOE VACC-AS01B A* 0.5 * 0 01/30/2018 01/30/2018 Class: Print RX Route: INTRAMUSCULA Sig: Inject 0.5 mL intramuscularly one time only for 1 dose. Encounter Status:Closed by ANABEL BENAVIDES on 01/30/18 DOWNTIME REPORT Observed: 01/12/2018 Status: F Source: [place] 11:46 AM [facility] REPOSITORY [facility] Medical Records Department [address] [place] [address] Downtime Report MR#: [id number] Acct: [id number] Name: DIMITRIS OCHOA Rep #: [id number] : 1945 72 From: Alessio Duogherty PCP: Fartun Fitzpatrick MD Status: REG CLI This patient was seen during an EMR downtime December 26, 2017 - January 02, 2018. This patient may have a combination of paper and electronic documentation or all paper documentation. All documentation is viewable within the e-chart portion of [facility] for each patient visit. PROGRESS Observed: 01/05/2018 Status: COMPLETED Source: [place] 12:32 PM [facility] OTHER CAMPUS REPOSITORY HNO ID: [id number] Author: BECKY Garza (Ct) Service: (none) Author Type: Clinical Deputy City Clerk Type: Progress Notes Filed: 01/05/2018 12:32 PM Note Text: NAME:Dimitris Ochoa DATE: January 05, 2018 CCF#: [id number] Lower Extremity X-Ray(s): Knee, AP / Lat / Merchant Bilateral and Wt. Bearing COMPLETED TECH ID SIGN: CHRISTINE RICARDO PROGRESS Observed: 01/05/2018 Status: COMPLETED Source: [place] 10:43 AM [facility] REPOSITORY HNO ID: [id number] Author: Wilner Chew Service: (none) Author Type: Physician Type: Progress Notes Filed: 02/04/2018 12:18 PM Note Text: CONSULT ORTHOPAEDIC: KNEE PRIMARY CARE PHYSICIAN: Fartun Fitzpatrick MD REFERRING PROVIDER: SELF ASSESSMENT AND PLAN Impression: Bilateral Knee Severe Degenerative Osteoarthritis, Primary After discussion with Dimitris Ochoa, continued non-operative management of injection(s) was chosen. The patient currently has had progressive symptoms. Progressive Symptoms Include: Pain worsened by weight bearing Pain effecting living situation Pain limiting ability to stay fit and healthy. The patient has been ordered: No orders placed today. CONSULTS: Patient does not require consults for optimization at this time. 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 and Other Lower Urinary Tract Symptoms (Luts) Atrial Fibrillation (Hcc) Obesity, Class Iii, Bmi 40-49.9 (Morbid Obesity) (Hcc) Mixed Hyperlipidemia Unspecified Gastritis and Gastroduodenitis Without Mention of Hemorrhage Osteoarthrosis, Unspecified Whether Generalized Or Localized, Other Specified Sites Essential Hypertension Bladder Neck Obstruction H/O: Hematuria Hypothyroidism Umbilical Hernia Without Mention of Obstruction Or Gangrene Paroxysmal Supraventricular Tachycardia (Hcc) Coronary Atherosclerosis of Unspecified Type of Vessel, Solomon Or Graft Other Pulmonary Embolism and Infarction Heel Spur Hypercholesterolemia Imaging Abnormality Anticoagulated On Coumadin SUBJECTIVE CHIEF COMPLAINT: Knee Pain HPI: Dimitris Ochoa is a 72 year old male here for evaluation and management of bilateral knee pain. He has had progressive problems with the knee(s) constantly over the past 10 year(s) interfering with activities which include exercise, gardening, golfing, doing senior android software engineer, participating in family activities, enjoying hobbies, rising from a sitting position, standing for prolonged periods of time, getting in and out of a car, dressing, climbing stairs and safety-increased risk for fall. The problem began limiting activities 3+ years ago. Currently the pain in the joint is rated at 5 out of 10 with minimal activity. The pain is constant and is located left knee-medial, right knee-lateral. The pain is described as aching, dull and sharp. Relieving factors include over the counter medication and braces. There is no specific incident that brought about this pain. He also complains of weakness, stiffness and grinding, catching. FUNCTIONAL STATUS: Climb a flight of stairs or walk up a hill (5.50 METs) Preoperative Ambulatory Status: Impaired Community Distances Number of Entry Steps: 3 Bedroom Location: First floor Bathroom Location: First floor Caregiver Assistance: Consistent/Live-In (5-7 days/wk) Home Location: Up to 150 miles PREVIOUS TREATMENTS: Attempted Weight Loss Medical Treatments: RX NSAIDS for 3 Months or Greater (nabumetone (relafen)) Physical Therapy: Shoe Wear, Braces, Orthotics, etc. and Activities Modified REVIEW OF SYSTEMS: PAIN ASSESSMENT: See HPI. MUSCULOSKELETAL: See HPI. Surgical Risk Factors: Active Cancer within 5 years, Heart Disease, History of DVT, History of Pulmonary Embolism and Morbid Obesity PAST MEDICAL HISTORY Diagnosis Date - Abdominal pain, left lower quadrant - Abscess of anal and rectal regions - Anticoagulated on Coumadin 11/28/2016 - Diverticulosis of colon (without mention of hemorrhage) - Dizziness and giddiness - Generalized osteoarthrosis, unspecified site - Hypothyroidism 04/07/2010 - Lipoma of other skin and subcutaneous tissue - Paroxysmal ventricular tachycardia (HCC) Dr. Arana in past; currently Dr. Cates - [facility] - PAST MEDICAL HISTORY OF glaucoma - PMH - PAST MEDICAL HISTORY OF blood clots in lungs AND legs - Sebaceous cyst - Unspecified essential hypertension - Unspecified hypothyroidism PAST SURGICAL HISTORY Procedure Laterality Date - APPENDECTOMY - COLONOSCOP W/ OR W/O [facility] SPEC 10/21/2006 Colonoscopy - PAST SURGICAL HISTORY OF 10/11/02 left carpal tunnel - REPAIR UMBILICAL EDMUNDO,5+Y/O,REDUC 06/15/10 with mesh FAMILY HISTORY Problem Relation Age of Onset - Stroke Father - Hypertension Mother - Hypertension Father - Heart Paternal Uncle Social History Marital status: Spouse name: Ramon Years of education: Number of children: Occupational History Occupation Employer Comment line crew supervis* [employer] Social History Main Topics Smoking status: Former Smoker Packs/day: 1.50 Years: 4.00 Types: Cigarettes Quit date: 07/25/1971 Smokeless tobacco: Never Used Alcohol use: Yes Comment: 2 drinks a month Drug use: No ALLERGIES: Levaquin [Levofloxacin]; Lipitor [Atorvastatin]; Lovastatin; Pravastatin; Simvastatin; Vlajrpx-Ows-Cpv Reductase Inhibitors; Ceftin [Cefuroxime] MEDICATIONS: moexipril (UNIVASC) 15 mg tablet Take 15 mg by mouth once daily. hydroCHLOROthiazide (HYDRODIURIL, ESIDRIX) 25 mg tablet TAKE ONE-HALF (1/2) TABLET DAILY levothyroxine (SYNTHROID) 88 mcg tablet TAKE ONE TABLET ONCE DAILY (ADD ONE-HALF (1/2) TABLET ONCE WEEKLY TOTAL SEVEN AND ONE-HALF TABLETS PER WEEK) warfarin (COUMADIN) 5 mg tablet Take 1 tablet (5 mg) on , Tuesday, and 1 and one half tablets (7.5 mg) all other days, or as directed nabumetone (RELAFEN) 500 mg tablet TAKE 1 TABLET TWICE A DAY WITH MEALS metoprolol succinate ER (TOPROL XL) 25 mg 24 hr tablet Take 1 tablet by mouth once daily. ezetimibe (ZETIA) 10 mg tablet Take 1 tablet by mouth once daily. latanoprost(XALATAN 0.005 % EYE DROPS) Take as directed potassium chloride(KLOR-CON 10 10 MEQ TAB) Take one(1) tablet daily. aspirin(ADULT ASPIRIN EC LOW STRENGTH 81 MG TAB, DELAYED RELEASE) Take one(1) tablet daily. TAMBOCOR 100 MG TAB take one (1) tablet twice a day fluticasone (FLONASE) 50 mcg/actuation nasal spray Use 2 Sprays in each nostril once daily. Rinse mouth after use. As needed PHYSICAL EXAM: Wt (!) 145.6 kg (321 lb) BMI 40.76 kg/m? All other systems deferred. GENERAL: Appears healthy, well-nourished, no deformities. HABITUS: Morbidly obese GAIT: slow paced KNEE EXAM: Left: Alignment: Valgus deformity, Partially Correctable Range of motion is 0 degrees in extension and 130 degrees of flexion. Extension La degrees Pain with ROM: Yes Effusion: Slight Tender to the palpation of Lateral joint line Pain with patellar compression: Yes Stability: Anterior/Posterior stable and Varus/Valgus stable Hip Exam: flexion to 100+ degrees, full extension, internal/external rotation adequate and no pain with log roll Neurovascular Status: Sensation Intact, Moves foot and ankle up AND down and 2+ dorsalis pedis Right: Alignment: Valgus deformity, Partially Correctable Range of motion is 0 degrees in extension and 130 degrees of flexion. Extension La degrees Pain with ROM: Yes Effusion: Slight Tender to the palpation of Lateral joint line Pain with patellar compression: Yes Stability: Anterior/Posterior stable and Varus/Valgus stable Hip Exam: flexion to 100+ degrees, full extension, internal/external rotation adequate and no pain with log roll Neurovascular Status: Sensation Intact, Moves foot and ankle up AND down and 2+ dorsalis pedis DATA: Diagnostic tests reviewed for today's visit: Right knee X-Ray: Severe tri-compartmental degeneration Left knee X-Ray: Severe tri-compartmental degeneration The following conditions were addressed during the office visit today: injections SIGNATURE: Wilner Chew MD PATIENT NAME: Dimitris Ceja Gabriela DATE: January 05, 2018 TIME: 10:43 AM CNOV Observed: 01/05/2018 Status: COMPLETED Source: [place] 10:40 AM [facility] REPOSITORY Office Visit (ORMDNA) GABRIELADIMITRIS Ceja ([id number]) 1945 M Date Time Provider Department 01/05/18 10:40 AM WILNER CHEW During your visit today, we recorded the following information about you: Weight 145.6 kg Anayeli [facility] 01/05/2018 10:50 AM Signed Patient presents with: Bilateral Knee Pain Wilner Chew MD 02/04/2018 12:18 PM Signed CONSULT ORTHOPAEDIC: KNEE PRIMARY CARE PHYSICIAN: Fartun Fitzpatrick MD REFERRING PROVIDER: SELF ASSESSMENT AND PLAN Impression: Bilateral Knee Severe Degenerative Osteoarthritis, Primary After discussion with Dimitris Ochoa, continued non-operative management of injection(s) was chosen. The patient currently has had progressive symptoms. Progressive Symptoms Include: Pain worsened by weight bearing Pain effecting living situation Pain limiting ability to stay fit and healthy. The patient has been ordered: No orders placed today. CONSULTS: Patient does not require consults for optimization at this time. 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 and Other Lower Urinary Tract Symptoms (Luts) Atrial Fibrillation (Hcc) Obesity, Class Iii, Bmi 40-49.9 (Morbid Obesity) (Hcc) Mixed Hyperlipidemia Unspecified Gastritis and Gastroduodenitis Without Mention of Hemorrhage Osteoarthrosis, Unspecified Whether Generalized Or Localized, Other Specified Sites Essential Hypertension Bladder Neck Obstruction H/O: Hematuria Hypothyroidism Umbilical Hernia Without Mention of Obstruction Or Gangrene Paroxysmal Supraventricular Tachycardia (Hcc) Coronary Atherosclerosis of Unspecified Type of Vessel, Solomon Or Graft Other Pulmonary Embolism and Infarction Heel Spur Hypercholesterolemia Imaging Abnormality Anticoagulated On Coumadin SUBJECTIVE CHIEF COMPLAINT: Knee Pain HPI: Dimitris Ochoa is a 72 year old male here for evaluation and management of bilateral knee pain. He has had progressive problems with the knee(s) constantly over the past 10 year(s) interfering with activities which include exercise, gardening, golfing, doing senior android software engineer, participating in family activities, enjoying hobbies, rising from a sitting position, standing for prolonged periods of time, getting in and out of a car, dressing, climbing stairs and safety-increased risk for fall. The problem began limiting activities 3+ years ago. Currently the pain in the joint is rated at 5 out of 10 with minimal activity. The pain is constant and is located left knee-medial, right knee-lateral. The pain is described as aching, dull and sharp. Relieving factors include over the counter medication and braces. There is no specific incident that brought about this pain. He also complains of weakness, stiffness and grinding, catching. FUNCTIONAL STATUS: Climb a flight of stairs or walk up a hill (5.50 METs) Preoperative Ambulatory Status: Impaired Community Distances Number of Entry Steps: 3 Bedroom Location: First floor Bathroom Location: First floor Caregiver Assistance: Consistent/Live-In (5-7 days/wk) Home Location: [place] 150 miles PREVIOUS TREATMENTS: Attempted Weight Loss Medical Treatments: RX NSAIDS for 3 Months or Greater (nabumetone (relafen)) Physical Therapy: Shoe Wear, Braces, Orthotics, etc. and Activities Modified REVIEW OF SYSTEMS: PAIN ASSESSMENT: See HPI. MUSCULOSKELETAL: See HPI. Surgical Risk Factors: Active Cancer within 5 years, Heart Disease, History of DVT, History of Pulmonary Embolism and Morbid Obesity PAST MEDICAL HISTORY Diagnosis Date - Abdominal pain, left lower quadrant - Abscess of anal and rectal regions - Anticoagulated on Coumadin 11/28/2016 - Diverticulosis of colon (without mention of hemorrhage) - Dizziness and giddiness - Generalized osteoarthrosis, unspecified site - Hypothyroidism 04/07/2010 - Lipoma of other skin and subcutaneous tissue - Paroxysmal ventricular tachycardia (HCC) Dr. Arana in past; currently Dr. Cates - [facility] - PAST MEDICAL HISTORY OF glaucoma - [facility] - PAST MEDICAL HISTORY OF blood clots in lungs AND legs - Sebaceous cyst - Unspecified essential hypertension - Unspecified hypothyroidism PAST SURGICAL HISTORY Procedure Laterality Date - APPENDECTOMY - COLONOSCOP W/ OR W/O [facility] SPEC 10/21/2006 Colonoscopy - PAST SURGICAL HISTORY OF 10/11/02 left carpal tunnel - REPAIR UMBILICAL EDMUNDO,5+Y/O,REDUC 06/15/10 with mesh FAMILY HISTORY Problem Relation Age of Onset - Stroke Father - Hypertension Mother - Hypertension Father - Heart Paternal Uncle Social History Marital status: Spouse name: Ramon Years of education: Number of children: Occupational History 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 hydroCHLOROthiazide (HYDRODIURIL, ESIDRIX) 25 mg tablet TAKE ONE-HALF (1/2) TABLET DAILY levothyroxine (SYNTHROID) 88 mcg tablet TAKE ONE TABLET ONCE DAILY (ADD ONE-HALF (1/2) TABLET ONCE WEEKLY TOTAL SEVEN AND ONE-HALF TABLETS PER WEEK) warfarin (COUMADIN) 5 mg tablet Take 1 tablet (5 mg) on , Tuesday, and 1 and one half tablets (7.5 mg) all other days, or as directed nabumetone (RELAFEN) 500 mg tablet TAKE 1 TABLET TWICE A DAY WITH MEALS metoprolol succinate ER (TOPROL XL) 25 mg 24 hr tablet Take 1 tablet by mouth once daily. ezetimibe (ZETIA) 10 mg tablet Take 1 tablet by mouth once daily. latanoprost(XALATAN 0.005 % EYE DROPS) Take as directed potassium chloride(KLOR-CON 10 10 MEQ TAB) Take one(1) tablet daily. aspirin(ADULT ASPIRIN EC LOW STRENGTH 81 MG TAB, DELAYED RELEASE) Take one(1) tablet daily. TAMBOCOR 100 MG TAB take one (1) tablet twice a day fluticasone (FLONASE) 50 mcg/actuation nasal spray Use 2 Sprays in each nostril once daily. Rinse mouth after use. As needed PHYSICAL EXAM: Wt (!) 145.6 kg (321 lb) BMI 40.76 kg/m? All other systems deferred. GENERAL: Appears healthy, well-nourished, no deformities. HABITUS: Morbidly obese GAIT: slow paced KNEE EXAM: Left: Alignment: Valgus deformity, Partially Correctable Range of motion is 0 degrees in extension and 130 degrees of flexion. Extension La degrees Pain with ROM: Yes Effusion: Slight Tender to the palpation of Lateral joint line Pain with patellar compression: Yes Stability: Anterior/Posterior stable and Varus/Valgus stable Hip Exam: flexion to 100+ degrees, full extension, internal/external rotation adequate and no pain with log roll Neurovascular Status: Sensation Intact, Moves foot and ankle up AND down and 2+ dorsalis pedis Right: Alignment: Valgus deformity, Partially Correctable Range of motion is 0 degrees in extension and 130 degrees of flexion. Extension La degrees Pain with ROM: Yes Effusion: Slight Tender to the palpation of Lateral joint line Pain with patellar compression: Yes Stability: Anterior/Posterior stable and Varus/Valgus stable Hip Exam: flexion to 100+ degrees, full extension, internal/external rotation adequate and no pain with log roll Neurovascular Status: Sensation Intact, Moves foot and ankle up AND down and 2+ dorsalis pedis DATA: Diagnostic tests reviewed for today's visit: Right knee X-Ray: Severe tri-compartmental degeneration Left knee X-Ray: Severe tri-compartmental degeneration The following conditions were addressed during the office visit today: injections SIGNATURE: Wilner Chew MD PATIENT NAME: Dimitris Ochoa DATE: January 05, 2018 TIME: 10:43 AM Wilner Chew MD 02/04/2018 12:18 PM Signed PROCEDURE- JOINT INJECTION Joint Sites: knee On exam, the joint is cool to touch without sign of infection. Flexion is limited and is uncomfortable. Crepitation is present with ROM. The proposed risks versus benefits of local anesthetic and steroid injection were discussed in detail. The patient verbalizes understanding and elects to proceed with the injection. The procedure was verified with the patient, including the correct injection site, and confirmation with both the patient and passport support associate. Under sterile technique following verbal consent the patient underwent a bilateral knee injection with 2cc of 6 mg/ml Celestone with 3 cc 1% Lidocaine and tolerated the procedure well without complications. The injection was performed through a superior-lateral portal to the knee without incident. The patient tolerated the injection well. Verbal instructions on post-injection care were given. Wilner Chew MD Referring Provider: SELF [[id number]] Allergies As of Date: 01/05/2018 Noted Allergy Reaction LEVAQUIN (LEVOFLOXACIN) 08/24/2013 14 - Other: See Comments Comments: Reports nightmares LIPITOR (ATORVASTATIN) 11/05/2015 17 - Myalgia Comments: stopped by Dr. Cates LOVASTATIN 02/18/2014 14 - Other: See Comments Comments: muscle aches PRAVASTATIN 02/18/2014 14 - Other: See Comments Comments: muscle aches SIMVASTATIN 02/18/2014 14 - Other: See Comments Comments: muscle aches [id number] REDUCTASE INHIBIT*11/05/2015 17 - Myalgia Comments: tried them all CEFTIN (CEFUROXIME) 02/22/2011 6 - Diarrhea Date Reviewed: 01/05/2018 Reviewed by: Anayeli Landaverde CT - Fully Assessed Reason for Visit: Bilateral Knee Pain [1210] Visit Diagnoses:Primary osteoarthritis of left knee [M17.12] Primary osteoarthritis of right knee [M17.11] Order(s):betamethasone acetate-betamethasone sodium phosphate 12 mg, lidocaine (PF) 10 mg/mL (1 %) 20 mgDisp: Rfl: betamethasone acetate-betamethasone sodium phosphate 12 mg, lidocaine (PF) 10 mg/mL (1 %) 20 mgDisp: Rfl: Prescriptions as of 01/05/2018 Sig: MOEXIPRIL 15 MG TABLET Take 15 mg by mouth once randall* HYDROCHLOROTHIAZIDE 25 MG TAB* TAKE ONE-HALF (1/2) TABLET DA* LEVOTHYROXINE 88 MCG TABLET TAKE ONE TABLET ONCE DAILY (A* WARFARIN 5 MG TABLET Take 1 tablet (5 mg) on * NABUMETONE 500 MG TABLET TAKE 1 TABLET TWICE A DAY WIT* METOPROLOL SUCCINATE ER 25 MG* Take 1 tablet by mouth once d* EZETIMIBE 10 MG TABLET Take 1 tablet by mouth once d* * XALATAN 0.005 % EYE DROPS Take as directed * KLOR-CON 10 MEQ TABLET,EXTEND* Take one(1) tablet daily. * ADULT ASPIRIN EC LOW STRENGTH* Take one(1) tablet daily. * TAMBOCOR 100 MG TABLET take one (1) tablet twice a d* FLUTICASONE 50 MCG/ACTUATION * Use 2 Sprays in each nostril * More... More... Problem List As Of Date 01/05/2018 Noted Resolved UNCERTAIN BEHAV NEOPL NERV SYS NEC [D43.9] INVALID FOR* More... BPH W URINARY OBS/LUTS [N40.1] INVALID FOR* Atrial Fibrillation [I48.91] INVALID FOR* More... Obesity, Class III, BMI 40-49.9 (morbid obesity*INVALID FOR* Mixed hyperlipidemia [E78.2] INVALID FOR* More... GASTRITIS/DUODEN NOS W/O HEMORRH [K29.70, K29.9*INVALID FOR* More... Routine general medical examination at a health*INVALID FOR*11/11/2014 More... OSTEOARTHROS NOS-OTHER SITE [M19.90] INVALID FOR* Essential hypertension [I10] INVALID FOR* More... Bladder Neck Obstruction [N32.0] INVALID FOR* H/O: Hematuria [Z87.448] INVALID FOR* Hypothyroidism [E03.9] INVALID FOR* Umbilical hernia without mention of obstruction*INVALID FOR* Paroxysmal supraventricular tachycardia [I47.1] INVALID FOR* More... Cor athrscl-uns vessel [I25.10] INVALID FOR* More... Other pulmonary embolism and infarction [I26.99]INVALID FOR* More... Heel spur [M77.30] INVALID FOR* Hypercholesterolemia [E78.00] INVALID FOR* Imaging abnormality [R93.8] INVALID FOR* Anticoagulated on Coumadin [Z51.81, Z79.01] INVALID FOR* Visit Notes: >> Anayeli Landaverde CT Estefania Jan 05, 2018 10:40 AM Status: Signed Patient presents with: Bilateral Knee Pain Prescriptions ordered this encounter Disp Refills Start End [facility] INJECTION BUILDER 02/04/2018 02/05/2018 Class: Suppress Questions Route: IAtc [facility] INJECTION BUILDER 02/04/2018 02/05/2018 Class: Suppress [facility] Status:Closed by WILNER CHEW MD on 02/04/18 XR KNEE 3V AP/LAT/FACUNDO Observed: 01/05/2018 Status: F Source: [facility] 10:25 AM CLINIC OTHER CAMPUS REPOSITORY * * *Final Report* * * DATE OF EXAM: Jan 05 2018 10:25AM STEPHAN [id number] - XR KNEE 3V AP/LAT/FACUNDO DANNY / PROCEDURE REASON: multiple diagnoses * * * * Physician Interpretation * * * * PROCEDURE: Bilateral knees INDICATION: Pain in right knee Pain in left knee . TECHNIQUE: XR KNEE 3V AP/LAT/FACUNDO DANNY COMPARISON: 06/07/2012 FINDINGS: Right knee: There is severe lateral and mild medial joint compartment narrowing with tricompartment spur formation, slightly greater than previous. No fracture or joint effusion. Left knee: There is moderate to severe medial joint compartment narrowing with moderate lateral joint compartment narrowing and tricompartment spur formation, mildly greater than previous. There is mild lateral subluxation of the patella, similar. No fracture or joint effusion. IMPRESSION: Bilateral osteoarthrosis, showing mild interval progression Cyber Security Engineer: [facility] Transcribe Date/Time: Jan 05 2018 5:14P Dictated by : PHOENIX FARRELL MD This examination was interpreted and the report reviewed and electronically signed by: PHOENIX FARRELL MD on Jan 05 2018 5:15PM EST [id number] LIVER PROFILE Collected: 12/27/2017 Status: F Source: [place] 10:00 AM [facility] REPOSITORY TYPE CODE TESTS RESULT OUT OF RANGE REFERENCE UNITS LAB L501.1500 6.4-8.2 g/dL Normal T PROT 7.8 LAB L501.1800 3.2-5.0 g/dL Normal ALB 3.6 LAB L501.1950 2.2-4.2 g/dL Normal GLOB 4.2 LAB L501.4100 15-37 U/L Normal AST 25 LAB L501.4305 45-117 U/L Normal ALK P 53 LAB L501.4405 16-61 U/L Normal ALT 30 LAB L501.4600 0.20-1.00 mg/dL High T BILI 1.60 LAB L501.4700 0.00-0.30 mg/dL Normal D BILI 0.27 Performed By: #### L500.3400, L500.4100 #### [facility] [address] [place], [address] LIPID PROFILE Collected: 12/27/2017 Status: F Source: [place] 10:00 [facility] REPOSITORY TYPE CODE TESTS RESULT OUT OF RANGE REFERENCE UNITS LAB L501.4900 200 mg/dL Normal CHOL 150 Result Comment: <200 mg/dL Desirable 200-240 mg/dL Borderline >240 mg/dL High Risk LAB L501.5000 mg/dL Normal TRIG 48 Result Comment: The drugs N-Acetylcysteine and Metamizole may falsely depress this assay. Serum Triglycerides Reference Interval Normal <150 mg/dL Borderline high 150 - 199 mg/dL High 200 - 499 mg/dL Very High > or = 500 mg/dL LAB L501.6400 mg/dL Normal HDL 51 Result Comment: The drugs N-Acetylcysteine and Metamizole may falsely depress this assay. Reference Range HDL <40 mg/dL Low HDL Cholesterol HDL >or= 60 mg/dL High HDL Cholesterol LAB L501.6500 0-130 mg/dL Normal LDL 89 LAB L501.6600 5-40 mg/dL Normal VLDL 10 Performed By: #### L500.3400, L500.4100 #### [facility] [address] [place], [address] CNCO Observed: 12/22/2017 Status: COMPLETED Source: [place] 12:00 AM [facility] REPOSITORY Letter Text Dimitris Ochoa [address] [place] [address] 12/22/2017 [facility] #: [id number] Dear , Due to a change in the provider's schedule it has been necessary to reschedule your Appointment. Your original appointment was scheduled for January 30, 2018 at 8:20 AM with Fartun Fitzpatrick M.D. Your new appointment is now scheduled on January 30, 2018 at 9 AM with Anabel Soliz CNP. If this new appointment is not convenient for you, please contact our office at [phone]. Thank you for choosing the [facility] as your Healthcare Provider . Sincerely, Internal Medicine Appointment Office MRI BRAIN WO/W Observed: 11/21/2017 Status: F Source: [place] IVCON 11:35 AM [facility] REPOSITORY * * *Final Report* * * DATE OF EXAM: Nov 21 2017 11:35AM [facility] 0295 - MRI BRAIN WO/W IVCON / PROCEDURE REASON: multiple diagnoses * * * * Physician Interpretation * * * * EXAMINATION: MRI BRAIN WO/W IVCON HISTORY: Abnormal lesion of left temporal lobe TECHNIQUE: Routine brain MRI protocol without and with contrast including diffusion and gradient echo images. M: [id number] Contrast: 20ml mL Dotarem IV COMPARISON: 04/15/2014, 10/09/2012, 05/12/2010 RESULT: Acute Change: There is no evidence of restricted diffusion to suggest an acute infarct. Hemorrhage: No evidence of prior parenchymal hemorrhage on the gradient echo images. Mass Lesion/ Mass Effect: Again appreciated is ovoid area of abnormal FLAIR change lateral to the left temporal horn this shows poorly defined T1 margins measures 1 x 0.8 x 0.6 cm, unchanged. Central CSF signal is present. There is no mass effect or enhancement. No connection to the temporal horn is appreciated. Chronic Change: Scattered punctate foci of increased T2 and FLAIR signal are noted in the supratentorial white matter which is a nonspecific finding, but likely represents minimal chronic microvascular ischemia. Parenchyma: There is mild generalized parenchymal volume loss. The brain parenchyma is otherwise within normal limits of signal intensity and morphology. Ventricles: Ventriculomegaly corresponds to the degree of parenchymal volume loss. Skull Base: Hypothalamic and pituitary region are grossly normal. Craniocervical junction is normal. No significant marrow replacement process. Vasculature: Major intracranial arterial structures, and dural venous sinuses show typical flow void, suggesting patency by spin echo criteria. Other: The visualized paranasal sinuses and mastoid air cells are clear. The orbits and extracranial soft tissues are unremarkable. IMPRESSION: Stable benign-appearing focus lateral to the left temporal horn which may relate to remote insult or injury, unchanged from 2010. Minimal nonspecific white matter changes of presumed small vessel ischemic disease Cyber Security Engineer: P[employer] Transcribe Date/Time: Nov 21 2017 11:55A Dictated by : JOSHUA LEVINE MD This examination was interpreted and the report reviewed and electronically signed by: JOSHUA LEVINE MD on Nov 21 2017 12:00PM EST [id number] PROGRESS Observed: 11/21/2017 Status: COMPLETED Source: [place] 11:20 AM [facility] REPOSITORY HNO ID: [id number] Author: Carmen (Rt) Federico Contreras Service: (none) Author Type: Deputy City Clerk Type: Progress Notes Filed: 11/21/2017 11:21 AM Note Text: Radiology Service Progress Note PATIENT NAME: Dimitris Ochoa DATE OF SERVICE: November 21, 2017 TIME: 11:20 AM PATIENT IDENTITY VERIFICATION COMPLETED USING TWO (2) METHODS: Patient confirmed name verbally and Date of . PATIENT GENDER DATA: Male PATIENT RELEVANT IMPLANT DATA REVIEWED: Yes CONTRAST INDUCED NEPHROPATHY RISK FACTORS: Patient age > 60 years CREATININE: Creatinine Date Value Ref Range Status 11/15/2017 1.31 (H) 0.73 - 1.22 mg/dL Final 07/27/2017 1.59 (H) 0.73 - 1.22 mg/dL Final 11/10/2016 1.29 (H) 0.73 - 1.22 mg/dL Final eGFR-All Other Races Date Value Ref Range Status 11/15/2017 54 . Final Comment: eGFR (Estimated GFR) Units of measure: mL/min/1.73 meters squared eGFR is derived from the reexpressed MDRD Study equation using the following parameters: serum creatinine, age, gender and race. The creatinine assay has been calibrated to be traceable to IDMS. An eGFR <60 mL/min/1.73m2 for >3 months is consistent with chronic kidney disease. Refer to KDOQI guidelines for clinical interpretation. In patients with unstable renal function, e.g. those with acute kidney injury, the eGFR may not accurately reflect actual GFR. eGFR- Date Value Ref Range Status 11/15/2017 >60 Final P.O.C.T. RESULTS: POC done: Yes, See Lab Tab November 21, 2017 RADIOLOGIST NOTIFIED?: No ALLERGIES: Reviewed and unchanged CONTRAST ALLERGY: NO. PERIPHERAL IV ACCESS: Ambulatory: IV type: A peripheral IV was started in the Right antecubital site with a Angio cath: 22 gauge., Site assessment: Clean,Dry and Intact, Site disposition Discontinued RADIOLOGY DEPARTMENT: MR; Exam(s) Completed: Head: Routine Brain SIGNED BY: RT Grady November 21, 2017 11:20 AM CREATININE Collected: 11/15/2017 Status: F Source: [place] 10:58 AM [facility] REPOSITORY TYPE CODE TESTS RESULT OUT OF REFERENCE UNITS RANGE LAB CRET 0.73-1.22 mg/dL High Creatinine 1.31 LAB GFRAA eGFR- >60 Amer. LAB GFRNAA . eGFR-All Other Races 54 Result Comment: eGFR (Estimated GFR) Units of measure: mL/min/1.73 meters squared eGFR is derived from the reexpressed MDRD Study equation using the following parameters: serum creatinine, age, gender and race. The creatinine assay has been calibrated to be traceable to IDMS. An eGFR <60 mL/min/1.73m2 for >3 months is consistent with chronic kidney disease. Refer to KDOQI guidelines for clinical interpretation. In patients with unstable renal function, e.g. those with acute kidney injury, the eGFR may not accurately reflect actual GFR. Performed By: #### CRET1 #### [facility] [address] [place], [place] [address] PROGRESS Observed: 11/14/2017 Status: COMPLETED Source: [place] 10:22 AM [facility] REPOSITORY HNO ID: [id number] Author: Mike Perez Jr. Service: (none) Author Type: Physician Type: Progress Notes Filed: 11/14/2017 11:05 AM Note Text: NEW PATIENT (CONSULT) HISTORY AND PHYSICAL EXAM PRIMARY CARE PHYSICIAN: Fartun Fitzpatrick MD CHIEF COMPLAINT: Abnormal MRI brain. HISTORY OF PRESENT ILLNESS: Dimitris Ochoa is a 72 year old male, BMI 40.64 kg/m2 with a PMH significant for vertigo and abnormal MRI brain. Vertigo was a transient symptom years ago and he has been asx since. However, he has had serial images performed of the brain secondary to a spot noted at time he had symptoms of vertigo. It is unclear if patient had seen my specifically in the past, but he has had prior imaging studies that he brings to the office today. An MRI brain in 2007 per reginald shows a stable 9mm left temp lobe abnormal T2/flair signal. In Apr 2010, another MRI brain performed showing stable appearance of the brain. On further review of the report, patient with stable ring flair signal hyperintensity within the left temp lobe measuring 1.1 AP by 0.6 transverse cm. Most recent imaging is in [place] and was performed in 2013 (compared to a 2012 image that showed: Stable appearance of the brain since 05/26/11 with no acute process or pathologic enhancement.). Per report: Acute Ischemic Change: ? There is no evidence of restricted diffusion to suggest an acute infarct. Hemorrhage: ? ?No evidence of prior parenchymal hemorrhage on the gradient echo images. Mass Effect / Mass Lesion: No evidence of an intracranial mass or extra-axial fluid collection. ?No significant mass effect. ?Is a focus of abnormal increased T2/FLAIR signal within the left superior temporal gyrus anteriorly (series 4 image 20) without associated enhancement or susceptibility changes and GRE. ?Findings are essentially unchanged since prior examination and may represent sequela of lacunar infarct, prior infection inflammation, or prior trauma. After the administration of intravenous contrast no areas of abnormal parenchymal or leptomeningeal enhancement are seen. Chronic Ischemic Change: ?Scattered patchy areas of increased T2 and FLAIR signal ?are present within the white matter, a nonspecific finding, but this likely represents chronic microvascular ischemia. Parenchyma: ? There is mild generalized parenchymal volume loss. ?The brain parenchyma is otherwise within normal limits of signal intensity and morphology. Ventricles: ? ? Ventriculomegaly corresponds to the degree of parenchymal volume loss. Skull Base: ? ?Hypothalamic and pituitary region are grossly normal. ? Craniocervical junction is normal. No significant marrow replacement process. Vasculature: ? ?Major intracranial arterial structures, and dural venous sinuses show typical flow void, suggesting patency by spin echo criteria. Other: ?The visualized paranasal sinuses and mastoid air cells are clear. ?The orbits and extracranial soft tissues are unremarkable. IMPRESSION: Stable appearance of the brain since 10/09/2012 as detailed above. ?No acute intracranial findings. Patient states everything started about 10 years ago when he had vertigo and fell. At that time, they found the L temp spot as above per patient. At that time, saw a neurologist in [place], who did not think much of it but wanted to follow it. I reviewed records going back to the mid 1999s. At that time Dr. Jolie Castañeda saw patient. Workup beyond MRI included the following: [facility] brain PET scan 05-30-07 reported as COMPARISON: MRI of the brain on 03/31/07 FINDINGS: In the high T2 lesion in the left temporal lobe on the MRI, the tracer uptake is at the same level of surrounding white matter. There is no significant rubidium uptake. 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 IMPRESSION: HYPOMETABOLIC LEFT TEMPORAL LESION WITH NO RUBIDIUM UPTAKE IS COMPATIBLE WITH LOW GRADE NEOPLASTIC PROCESS. [facility] chest, abdomen-pelvis CT w contrast 05-29-07 reported as IMPRESSION: NO CT EVIDENCE OF ACTIVE DISEASE IN THE LUNGS OR MEDIASTINUM. and as IMPRESSION: NO EVIDENCE OF METASTASIS IN THE ABDOMEN OR PELVIS. respectively. Last seen in 2013 at which time it was recommended he have 2 year follow up. No focal neuro symptoms including no weakness, speech or language change, vision change, vertigo, headache. REVIEW OF SYSTEMS GENERAL:No weight loss, malaise or fevers. HEENT:Negative for frequent or significant headaches, No changes in hearing or vision, no nose bleeds or other nasal problems NECK:Negative for lumps, goiter, pain and significant neck swelling RESPIRATORY: Negative for cough, wheezing or shortness of breath. CARDIOVASCULAR: Negative for chest pain, leg swelling or palpitations. GASTROINTESTINAL: Negative for abdominal discomfort, blood in stools or black stools or change in bowel habits GENITOURINARY: No history of dysuria, frequency or incontinence MUSCULOSKELETAL: Negative for joint pain or swelling, back pain or muscle pain. NEUROLOGIC:Negative for focal numbness or weakness, headaches and dizziness or syncope, vision changes, speech/language changes, changes in gait or falls -- besides those complaints as above in HPI. SKIN:Negative for lesions, rash, and itching. PSYCHIATRIC: Negative for sleep disturbance, mood disorder and recent psychosocial stressors. HEMATOLOGIC/LYMPHATIC/IMMUNOLOGIC:Negative for prolonged bleeding, bruising easily or swollen nodes. ENDOCRINE: Negative for cold or heat intolerance, polyuria, polydipsia and goiter. The remainder of the ROS was reviewed and is negative. LAB/IMAGING: Reviewed and include: WBC (k/uL) Date Value 07/27/2017 5.83 RBC (m/uL) Date Value 07/27/2017 4.77 Hemoglobin (g/dL) Date Value 07/27/2017 14.4 Hematocrit (%) Date Value 07/27/2017 44.9 MCV (fL) Date Value 07/27/2017 94.1 MCH (pG) Date Value 07/27/2017 30.2 MCHC (g/dL) Date Value 07/27/2017 32.1 RDW-CV (%) Date Value 07/27/2017 14.6 Platelet Count (k/uL) Date Value 07/27/2017 219 MPV (fL) Date Value 07/27/2017 11.7 Glucose (mg/dL) Date Value 07/27/2017 55 (L) BUN (mg/dL) Date Value 07/27/2017 20 Creatinine (mg/dL) Date Value 07/27/2017 1.59 (H) Sodium (mmol/L) Date Value 07/27/2017 141 Potassium (mmol/L) Date Value 07/27/2017 4.4 Chloride (mmol/L) Date Value 07/27/2017 102 CO2 (mmol/L) Date Value 07/27/2017 28 Protein, Total (g/dL) Date Value 07/27/2017 7.3 Albumin (g/dL) Date Value 07/27/2017 3.8 (L) Calcium (mg/dL) Date Value 07/27/2017 9.4 Alkaline Phosphatase (U/L) Date Value 07/27/2017 56 Bilirubin, Total (mg/dL) Date Value 07/27/2017 0.8 AST (U/L) Date Value 07/27/2017 26 ALT (U/L) Date Value 07/27/2017 23 Hep C Antibody IA (no units) Date Value 11/10/2016 Negative MEDICATIONS: moexipril (UNIVASC) 15 mg tablet Take 15 mg by mouth once daily. hydroCHLOROthiazide (HYDRODIURIL, ESIDRIX) 25 mg tablet TAKE ONE-HALF (1/2) TABLET DAILY levothyroxine (SYNTHROID) 88 mcg tablet TAKE ONE TABLET ONCE DAILY (ADD ONE-HALF (1/2) TABLET ONCE WEEKLY TOTAL SEVEN AND ONE-HALF TABLETS PER WEEK) warfarin (COUMADIN) 5 mg tablet Take 1 tablet (5 mg) on , Tuesday, and 1 and one half tablets (7.5 mg) all other days, or as directed nabumetone (RELAFEN) 500 mg tablet TAKE 1 TABLET TWICE A DAY WITH MEALS metoprolol succinate ER (TOPROL XL) 25 mg 24 hr tablet Take 1 tablet by mouth once daily. ezetimibe (ZETIA) 10 mg tablet Take 1 tablet by mouth once daily. latanoprost(XALATAN 0.005 % EYE DROPS) Take as directed potassium chloride(KLOR-CON 10 10 MEQ TAB) Take one(1) tablet daily. aspirin(ADULT ASPIRIN EC LOW STRENGTH 81 MG TAB, DELAYED RELEASE) Take one(1) tablet daily. TAMBOCOR 100 MG TAB take one (1) tablet twice a day fluticasone (FLONASE) 50 mcg/actuation nasal spray Use 2 Sprays in each nostril once daily. Rinse mouth after use. As needed HISTORIES PAST MEDICAL HISTORY Diagnosis Date - Abdominal pain, left lower quadrant - Abscess of anal and rectal regions - Anticoagulated on Coumadin 11/28/2016 - Diverticulosis of colon (without mention of hemorrhage) - Dizziness and giddiness - Generalized osteoarthrosis, unspecified site - Hypothyroidism 04/07/2010 - Lipoma of other skin and subcutaneous tissue - Paroxysmal ventricular tachycardia (HCC) Dr. Arana in past; currently Dr. Cates - [facility] - PAST MEDICAL HISTORY OF glaucoma - [facility] - PAST MEDICAL HISTORY OF blood clots in lungs AND legs - Sebaceous cyst - Unspecified essential hypertension - Unspecified hypothyroidism FAMILY HISTORY Problem Relation Age of Onset - Stroke Father - Hypertension Mother - Hypertension Father - Heart Paternal Uncle SOCIAL HISTORY Social History Substance Use Topics - Smoking status: Former Smoker Packs/day: 1.50 Years: 4.00 Types: Cigarettes Quit date: 07/25/1971 - Smokeless tobacco: Never Used - Alcohol use Yes Comment: 2 drinks a month PHYSICAL EXAMINATION BP 130/85 (BP Site: Left Arm, BP Position: Sitting, BP Cuff Size: Regular Adult) Pulse (!) 45 Wt (!) 145.2 kg (320 lb) SpO2 99% BMI 40.64 kg/m2 GENERAL EXAM: General appearance: NAD, pleasant. HEENT: NC/AT, nasal congestion absent, no oral lesions, membranes moist. NECK: No masses, supple. Lungs: CTA bilaterally. CV: RRR nl S1, S2. No carotid bruits. Abd: Soft, nontender, nondistended. Bowel sounds present. Extr: No cyanosis, clubbing or edema. No evidence of fasciculations. Extremity pulses palpable and normal. Skin: Cool to touch. No rash. NEUROLOGICAL EXAM: General: Awake, alert, oriented x3 (person,place,time), speech fluent, no dysarthria; comprehension, naming, repetition intact. Short and care home memory intact. Fund of knowledge grossly normal by MOCA. CN: PERRL, fundi with no evidence of papilledema, EOMI and without nystagmus, VFF to confrontation, facial sensation and strength are normal and symmetric, hearing is intact to finger rub bilaterally, palate and tongue movements are intact and symmetric. SCM and trapezius strength normal. Motor: Normal tone, bulk and strength (5/5) bilaterally (throughout extremities x4). Reflexes: 2/4 and symmetric, plantar stimulation is flexor. Coordination: FNF, JUANITA, HTS intact. No tremors. Sensation: Light touch, pin, vibration, temperature intact throughout. No evidence of neglect. Gait: Narrow based and stable with normal stride and arm swing. Romberg normal. Assessment and Plan: Patient with abnormal MRI brain with superior L temp lobe lesion as above. Etiology of this lesion uncertain, but over 10 years of serial imaging, there was no change to its size or other characteristics. It was never contrast enhancing, and PET did not show increased metabolic activity/uptake. He has a non-focal neuro exam. I had long discussion with patient and his regarding the lesion on MRI, and reviewed most recent images. Explained that we may never know what in fact this lesion is without actual tissue sample, and given no symptoms, feel risk of a biopsy would significantly outweigh benefits. Patient agrees. Patient and I discussed various treatment plans and agree on the following: will get MRI +/- contrast now 4 years from his last. If there is still no change, at this point, will follow patient based on symptoms. If any new neuro symptoms he will contact me immediately and we will repeat scan. Otherwise, if this MRI is stable and asx, no additional brain imaging planned in the future. Again, he will follow up prn. I spent 45 minutes in the visit, with more than 50% of the total [id number] time of the visit in counseling / coordination of care. CNOV Observed: 11/14/2017 Status: COMPLETED Source: [place] 10:00 AM [facility] REPOSITORY Office Visit (NEURMM) DIMITRIS OCHOA ([id number]) 1945 M Date Time Provider Department 11/14/17 10:00 AM MIKE PEREZ JR NEUR During your visit today, we recorded the following information about you: Pulse Blood pressure Weight 45/minute 130/85 145.2 kg Mike Perez MD 11/14/2017 11:05 AM Signed NEW PATIENT (CONSULT) HISTORY AND PHYSICAL EXAM PRIMARY CARE PHYSICIAN: Fartun Fitzpatrick MD CHIEF COMPLAINT: Abnormal MRI brain. HISTORY OF PRESENT ILLNESS: Dimitris Ochoa is a 72 year old male, BMI 40.64 kg/m2 with a PMH significant for vertigo and abnormal MRI brain. Vertigo was a transient symptom years ago and he has been asx since. However, he has had serial images performed of the brain secondary to a ANDquot;spotANDquot; noted at time he had symptoms of vertigo. It is unclear if patient had seen my specifically in the past, but he has had prior imaging studies that he brings to the office today. An MRI brain in 2007 per reginald shows a stable 9mm left temp lobe abnormal T2/flair signal. In Apr 2010, another MRI brain performed showing ANDquot;stable appearance of the brainANDquot;. On further review of the report, patient with stable ring flair signal hyperintensity within the left temp lobe measuring 1.1 AP by 0.6 transverse cm. Most recent imaging is in [place] and was performed in 2014 (compared to a 2013 image that showed: ANDquot;Stable appearance of the brain since 05/26/11 with no acute process or pathologic enhancementANDquot;.). Per report: Acute Ischemic Change: ? There is no evidence of restricted diffusion to suggest an acute infarct. Hemorrhage: ? ?No evidence of prior parenchymal hemorrhage on the gradient echo images. Mass Effect / Mass Lesion: No evidence of an intracranial mass or extra-axial fluid collection. ?No significant mass effect. ?Is a focus of abnormal increased T2/FLAIR signal within the left superior temporal gyrus anteriorly (series 4 image 20) without associated enhancement or susceptibility changes and GRE. ?Findings are essentially unchanged since prior examination and may represent sequela of lacunar infarct, prior infection inflammation, or prior trauma. After the administration of intravenous contrast no areas of abnormal parenchymal or leptomeningeal enhancement are seen. Chronic Ischemic Change: ?Scattered patchy areas of increased T2 and FLAIR signal ?are present within the white matter, a nonspecific finding, but this likely represents chronic microvascular ischemia. Parenchyma: ? There is mild generalized parenchymal volume loss. ?The brain parenchyma is otherwise within normal limits of signal intensity and morphology. Ventricles: ? ? Ventriculomegaly corresponds to the degree of parenchymal volume loss. Skull Base: ? ?Hypothalamic and pituitary region are grossly normal. ? Craniocervical junction is normal. No significant marrow replacement process. Vasculature: ? ?Major intracranial arterial structures, and dural venous sinuses show typical flow void, suggesting patency by spin echo criteria. Other: ?The visualized paranasal sinuses and mastoid air cells are clear. ?The orbits and extracranial soft tissues are unremarkable. IMPRESSION: Stable appearance of the brain since 10/09/2012 as detailed above. ?No acute intracranial findings. Patient states everything started about 10 years ago when he had vertigo and fell. At that time, they found the L temp spot as above per patient. At that time, saw a neurologist in [place], who did not think much of it but wanted to follow it. I reviewed records going back to the mid 1999s. At that time Dr. Jolie Castañeda saw patient. Workup beyond MRI included the following: [facility] brain PET scan 05-30-07 reported as COMPARISON: MRI of the brain on 03/31/07 FINDINGS: In the high T2 lesion in the left temporal lobe on the MRI, the tracer uptake is at the same level of surrounding white matter. There is no significant rubidium uptake. 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 IMPRESSION: HYPOMETABOLIC LEFT TEMPORAL LESION WITH NO RUBIDIUM UPTAKE IS COMPATIBLE WITH LOW GRADE NEOPLASTIC PROCESS. [facility] chest, abdomen-pelvis CT w contrast 05-29-07 reported as IMPRESSION: NO CT EVIDENCE OF ACTIVE DISEASE IN THE LUNGS OR MEDIASTINUM. and as IMPRESSION: NO EVIDENCE OF METASTASIS IN THE ABDOMEN OR PELVIS. respectively. Last seen in 2013 at which time it was recommended he have 2 year follow up. No focal neuro symptoms including no weakness, speech or language change, vision change, vertigo, headache. REVIEW OF SYSTEMS GENERAL:No weight loss, malaise or fevers. HEENT:Negative for frequent or significant headaches, No changes in hearing or vision, no nose bleeds or other nasal problems NECK:Negative for lumps, goiter, pain and significant neck swelling RESPIRATORY: Negative for cough, wheezing or shortness of breath. CARDIOVASCULAR: Negative for chest pain, leg swelling or palpitations. GASTROINTESTINAL: Negative for abdominal discomfort, blood in stools or black stools or change in bowel habits GENITOURINARY: No history of dysuria, frequency or incontinence MUSCULOSKELETAL: Negative for joint pain or swelling, back pain or muscle pain. NEUROLOGIC:Negative for focal numbness or weakness, headaches and dizziness or syncope, vision changes, speech/language changes, changes in gait or falls -- besides those complaints as above in HPI. SKIN:Negative for lesions, rash, and itching. PSYCHIATRIC: Negative for sleep disturbance, mood disorder and recent psychosocial stressors. HEMATOLOGIC/LYMPHATIC/IMMUNOLOGIC:Negative for prolonged bleeding, bruising easily or swollen nodes. ENDOCRINE: Negative for cold or heat intolerance, polyuria, polydipsia and goiter. The remainder of the ROS was reviewed and is negative. LAB/IMAGING: Reviewed and include: WBC (k/uL) Date Value 07/27/2017 5.83 RBC (m/uL) Date Value 07/27/2017 4.77 Hemoglobin (g/dL) Date Value 07/27/2017 14.4 Hematocrit (%) Date Value 07/27/2017 44.9 MCV (fL) Date Value 07/27/2017 94.1 MCH (pG) Date Value 07/27/2017 30.2 MCHC (g/dL) Date Value 07/27/2017 32.1 RDW-CV (%) Date Value 07/27/2017 14.6 Platelet Count (k/uL) Date Value 07/27/2017 219 MPV (fL) Date Value 07/27/2017 11.7 Glucose (mg/dL) Date Value 07/27/2017 55 (L) BUN (mg/dL) Date Value 07/27/2017 20 Creatinine (mg/dL) Date Value 07/27/2017 1.59 (H) Sodium (mmol/L) Date Value 07/27/2017 141 Potassium (mmol/L) Date Value 07/27/2017 4.4 Chloride (mmol/L) Date Value 07/27/2017 102 CO2 (mmol/L) Date Value 07/27/2017 28 Protein, Total (g/dL) Date Value 07/27/2017 7.3 Albumin (g/dL) Date Value 07/27/2017 3.8 (L) Calcium (mg/dL) Date Value 07/27/2017 9.4 Alkaline Phosphatase (U/L) Date Value 07/27/2017 56 Bilirubin, Total (mg/dL) Date Value 07/27/2017 0.8 AST (U/L) Date Value 07/27/2017 26 ALT (U/L) Date Value 07/27/2017 23 Hep C Antibody IA (no units) Date Value 11/10/2016 Negative MEDICATIONS: moexipril (UNIVASC) 15 mg tablet Take 15 mg by mouth once daily. hydroCHLOROthiazide (HYDRODIURIL, ESIDRIX) 25 mg tablet TAKE ONE-HALF (1/2) TABLET DAILY levothyroxine (SYNTHROID) 88 mcg tablet TAKE ONE TABLET ONCE DAILY (ADD ONE-HALF (1/2) TABLET ONCE WEEKLY TOTAL SEVEN AND ONE-HALF TABLETS PER WEEK) warfarin (COUMADIN) 5 mg tablet Take 1 tablet (5 mg) on , Tuesday, and 1 and one half tablets (7.5 mg) all other days, or as directed nabumetone (RELAFEN) 500 mg tablet TAKE 1 TABLET TWICE A DAY WITH MEALS metoprolol succinate ER (TOPROL XL) 25 mg 24 hr tablet Take 1 tablet by mouth once daily. ezetimibe (ZETIA) 10 mg tablet Take 1 tablet by mouth once daily. latanoprost(XALATAN 0.005 % EYE DROPS) Take as directed potassium chloride(KLOR-CON 10 10 MEQ TAB) Take one(1) tablet daily. aspirin(ADULT ASPIRIN EC LOW STRENGTH 81 MG TAB, DELAYED RELEASE) Take one(1) tablet daily. TAMBOCOR 100 MG TAB take one (1) tablet twice a day fluticasone (FLONASE) 50 mcg/actuation nasal spray Use 2 Sprays in each nostril once daily. Rinse mouth after use. As needed HISTORIES PAST MEDICAL HISTORY Diagnosis Date - Abdominal pain, left lower quadrant - Abscess of anal and rectal regions - Anticoagulated on Coumadin 11/28/2016 - Diverticulosis of colon (without mention of hemorrhage) - Dizziness and giddiness - Generalized osteoarthrosis, unspecified site - Hypothyroidism 04/07/2010 - Lipoma of other skin and subcutaneous tissue - Paroxysmal ventricular tachycardia (HCC) Dr. Arana in past; currently Dr. Cates - [facility] - PAST MEDICAL HISTORY OF glaucoma - [facility] - PAST MEDICAL HISTORY OF blood clots in lungs ANDamp; legs - Sebaceous cyst - Unspecified essential hypertension - Unspecified hypothyroidism FAMILY HISTORY Problem Relation Age of Onset - Stroke Father - Hypertension Mother - Hypertension Father - Heart Paternal Uncle SOCIAL HISTORY Social History Substance Use Topics - Smoking status: Former Smoker Packs/day: 1.50 Years: 4.00 Types: Cigarettes Quit date: 07/25/1971 - Smokeless tobacco: Never Used - Alcohol use Yes Comment: 2 drinks a month PHYSICAL EXAMINATION BP 130/85 (BP Site: Left Arm, BP Position: Sitting, BP Cuff Size: Regular Adult) Pulse (!) 45 Wt (!) 145.2 kg (320 lb) SpO2 99% BMI 40.64 kg/m2 GENERAL EXAM: General appearance: NAD, pleasant. HEENT: NC/AT, nasal congestion absent, no oral lesions, membranes moist. NECK: No masses, supple. Lungs: CTA bilaterally. CV: RRR nl S1, S2. No carotid bruits. Abd: Soft, nontender, nondistended. Bowel sounds present. Extr: No cyanosis, clubbing or edema. No evidence of fasciculations. Extremity pulses palpable and normal. Skin: Cool to touch. No rash. NEUROLOGICAL EXAM: General: Awake, alert, oriented x3 (person,place,time), speech fluent, no dysarthria; comprehension, naming, repetition intact. 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 Fund of knowledge grossly normal by MOCA. CN: PERRL, fundi with no evidence of papilledema, EOMI and without nystagmus, VFF to confrontation, facial sensation and strength are normal and symmetric, hearing is intact to finger rub bilaterally, palate and tongue movements are intact and symmetric. SCM and trapezius strength normal. Motor: Normal tone, bulk and strength (5/5) bilaterally (throughout extremities x4). Reflexes: 2/4 and symmetric, plantar stimulation is flexor. Coordination: FNF, JUANITA, HTS intact. No tremors. Sensation: Light touch, pin, vibration, temperature intact throughout. No evidence of neglect. Gait: Narrow based and stable with normal stride and arm swing. Romberg normal. Assessment and Plan: Patient with abnormal MRI brain with superior L temp lobe lesion as above. Etiology of this lesion uncertain, but over 10 years of serial imaging, there was no change to its size or other characteristics. It was never contrast enhancing, and PET did not show increased metabolic activity/uptake. He has a non-focal neuro exam. I had long discussion with patient and his regarding the lesion on MRI, and reviewed most recent images. Explained that we may never know what in fact this lesion is without actual tissue sample, and given no symptoms, feel risk of a biopsy would significantly outweigh benefits. Patient agrees. Patient and I discussed various treatment plans and agree on the following: will get MRI +/- contrast now 4 years from his last. If there is still no change, at this point, will follow patient based on symptoms. If any new neuro symptoms he will contact me immediately and we will repeat scan. Otherwise, if this MRI is stable and asx, no additional brain imaging planned in the future. Again, he will follow up prn. I spent 45 minutes in the visit, with more than 50% of the total [id number] time of the visit in counseling / coordination of care. Referring Provider: SELF [[id number]] Allergies As of Date: 11/14/2017 Noted Allergy Reaction LEVAQUIN (LEVOFLOXACIN) 08/24/2013 14 - Other: See Comments Comments: Reports nightmares LIPITOR (ATORVASTATIN) 11/05/2015 17 - Myalgia Comments: stopped by Dr. Cates LOVASTATIN 02/18/2014 14 - Other: See Comments Comments: muscle aches PRAVASTATIN 02/18/2014 14 - Other: See Comments Comments: muscle aches SIMVASTATIN 02/18/2014 14 - Other: See Comments Comments: muscle aches [id number] REDUCTASE INHIBIT*11/05/2015 17 - Myalgia Comments: tried them all CEFTIN (CEFUROXIME) 02/22/2011 6 - Diarrhea Date Reviewed: 11/14/2017 Reviewed by: Mike Perez Jr. - Fully Assessed Reason for Visit: Dizziness [36] Cmt: No longer having symptoms. Has been monitored for the last 10 years for spot on the brain Primary Visit Diagnosis:Abnormal finding on MRI of brain [R90.89] Other Visit Diagnosis:Screening for nephropathy [Z13.89] Order(s):CREATININE BLD [SQCRET] Order #: [id number] FUTURE MRI BRAIN WO/W IVCON [[id number]] Order #: [id number] FUTURE iv contrast (radiology procedure)MRI Brain Inject, intravenously, once for 1 dose.No IV access, insert saline lock prior to beginning of sedation, infusion, injection of imaging exam.Discontinue saline lock post exam. If Pt. has a central line or IVAD, may access for administration according to line specific nursing protocol.Once exam is complete flush line and de-access according to line specific nursing protocol in the MR contrast administration guidelines linkDisp: 1 EachRfl: 0 Prescriptions as of 11/14/2017 Sig: MOEXIPRIL 15 MG TABLET Take 15 mg by mouth once randall* HYDROCHLOROTHIAZIDE 25 MG TAB* TAKE ONE-HALF (1/2) TABLET DA* LEVOTHYROXINE 88 MCG TABLET TAKE ONE TABLET ONCE DAILY (A* WARFARIN 5 MG TABLET Take 1 tablet (5 mg) on * NABUMETONE 500 MG TABLET TAKE 1 TABLET TWICE A DAY WIT* METOPROLOL SUCCINATE ER 25 MG* Take 1 tablet by mouth once d* EZETIMIBE 10 MG TABLET Take 1 tablet by mouth once d* * XALATAN 0.005 % EYE DROPS Take as directed * KLOR-CON 10 MEQ TABLET,EXTEND* Take one(1) tablet daily. * ADULT ASPIRIN EC LOW STRENGTH* Take one(1) tablet daily. * TAMBOCOR 100 MG TABLET take one (1) tablet twice a d* IV CONTRAST (RADIOLOGY PROCED* MRI Brain Inject, intravenous* FLUTICASONE 50 MCG/ACTUATION * Use 2 Sprays in each nostril * Medication notes this encounter FLUTICASONE 50 MCG/ACTUATION NASAL SPRAY,SUSPENSION >> Shant Liu Cma 11/14/2017 10:16 AM >> SHANT LIU CMA Mon Nov 14, 2017 10:16 AM Patient not taking More... More... 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 BPH W URINARY OBS/LUTS [N40.1] INVALID FOR* Atrial Fibrillation [I48.91] INVALID FOR* More... Obesity, Class III, BMI 40-49.9 (morbid obesity*INVALID FOR* Mixed hyperlipidemia [E78.2] INVALID FOR* More... GASTRITIS/DUODEN NOS W/O HEMORRH [K29.70, K29.9*INVALID FOR* More... Routine general medical examination at a [facility]*INVALID FOR*11/11/2014 More... OSTEOARTHROS NOS-OTHER SITE [M19.90] INVALID FOR* Essential hypertension [I10] INVALID FOR* More... Bladder Neck Obstruction [N32.0] INVALID FOR* H/O: Hematuria [Z87.448] INVALID FOR* Hypothyroidism [E03.9] INVALID FOR* Umbilical hernia without mention of obstruction*INVALID FOR* Paroxysmal supraventricular tachycardia [I47.1] INVALID FOR* More... Cor athrscl-uns vessel [I25.10] INVALID FOR* More... Other pulmonary embolism and infarction [I26.99]INVALID FOR* More... Heel spur [M77.30] INVALID FOR* Hypercholesterolemia [E78.00] INVALID FOR* Imaging abnormality [R93.8] INVALID FOR* Anticoagulated on Coumadin [Z51.81, Z79.01] INVALID FOR* Prescriptions ordered this encounter Disp Refills Start End IV CONTRAST (RADIOLOGY PROCEDURE) 1 Ea* 0 11/14/2017 11/15/2017 Class: In Office Sig: MRI Brain Inject, intravenously, once for 1 dose.No IV access, insert saline lock prior to beginning of sedation, infusion, injection of imaging exam.Discontinue saline lock post exam. If Pt. has a central line or IVAD, may access for administration according to line specific nursing protocol.Once exam is complete flush line and de-access according to line specific nursing protocol in the MR contrast administration guidelines link Disposition: Return if symptoms worsen or fail to improve. Follow-up and Disposition History Recorded Encounter Status:Closed by MIKE PEREZ on 11/14/17 CARDIOLOGY VISIT Observed: 08/08/2017 Status: F Source: [place] REPORT 2:06 PM [facility] REPOSITORY [facility] [address] [place] [address] OFFICE VISIT Date of Service: 08/08/17 MR#: [id number] Acct: [id number] Name: DIMITRIS OCHOA Rep #: [id number] : 1945 Provider: Matt Cates MD Age/Sex: 72/M [place] [facility] Status: Signed with Addenda ADDENDUM by Matt Cates MD on 08/08/17 at 1406 Addendum entered and electronically signed by Matt Cates MD 08/08/17 14:06: Assessment AND Plan Plan - Matt Cates MD 1. Atrial fibrillation: Patient appears to be in sinus rhythm today, and will obtain an EKG to confirm this as well as to check and monitor his QT corrected interval given his flecainide therapy. He has been asymptomatic since her last visit, and his catheterization last year demonstrated minimal nonobstructive coronary disease. Would not recommend repeat stress test at this time unless and until the patient has symptoms. EKG today demonstrates sinus bradycardia, normal axis, QT corrected of 409 ms, no appreciable change from before. In the meantime he will continue his baby aspirin, flecainide, hydrochlorothiazide, Lopressor, potassium and warfarin. 2. Hyperlipidemia: His LDL and HDL cholesterol are at goal. Continue Zetia. 3. Return office in 6 months. This note was generated using a voice recognition system and there may be incorrect words, spelling or punctuation that were not noted when reviewing the office note prior to saving. Orders Orders: 12 Lead EKG performed by [facility] Today E78.5, I10, I25.10, I47.1, I48.0, I71.2, Z86.711, Z98.89 0 Medications New: Plan Detail Follow Up 6 Months (ugo) 08/08/17 1406 <Electronically signed by Matt Cates MD> Date Matt Cates MD cc: * Signed HPI 6 M FU: Chief Complaint: Routine f/u Details: HPI Referring physician: Dr. Fartun Fitzpatrick It was a pleasure seeing your patient, Dimitris Ochoa, today in our office. As you know, he is a very pleasant 72-year-old morbidly obese gentleman, who is returning for followup of his paroxysmal atrial tachycardia and paroxysmal atrial fibrillation. he is status post DC cardioversion in 1999, with history of concealed accessory pathway status post ablation. Since his last visit Mr. Ochoa has had no chest, neck, jaw, or arm discomfort to suggest angina, increase in shortness of breath or dyspnea on exertion, paroxysmal nocturnal dyspnea, orthopnea, or pedal edema. He denies palpitations, near syncope, or syncope and states his pulse has been regular on daily checks. due to his knees, he has not been exercising nearly as much as last time I saw him. he has also been taking Lipitor 2 times a week due to significant myalgias. He has failed other Statins as well. on further history, he had a catheterization done in September 2006 which demonstrated mild nonobstructive disease of his LAD and left circumflex, and his last echocardiogram was 11/03/11 which demonstrated an EF of 60%. His last stress test was In April 2013which was negative, and prior to that his previous stress test on 11/03/11 was negative for inducible ischemia. Patient underwent treadmill/echocardiogram 07/30/15 which was abnormal for ischemia by EKG criteria however there were no evidence of wall motion abnormalities. In order to ensure proper usage of flecainide therapy, I recommended he undergo a repeat left heart catheterization to evaluate for possible coronary disease which may cause us to change him to a different antiarrhythmic. This was performed which showed minimal nonobstructive coronary disease but a significant tortuosity of his aortoiliac system requiring extended length catheters. LV function was normal and flecainide was continued. Since our last visit, the patient presented with right leg swelling, and underwent a Doppler on 08/24/15 which demonstrated no evidence of DVT, pseudoaneurysm, or AV fistula. From a cardiac standp he denies any chest pain, angina, does have rare self limiting palpitations, lightheadedness or dizziness. He is taking and tolerating his medicines well. He denies any lightheadedness, dizziness, lower extremity edema, presyncope or syncope despite his bradycardia. He is actually doing quite well. In our office today his blood pressure is 118/72 and pulse is 52 and regular. His physical exam is as below. His lipids a as of 02/18/16 showed HDL of 52 and LDL of 72. This is well he was on Zetia. repeat lipids dated 09/02/16 showed an LDL of 72 and HDL of 60. EKG previously demonstrated sinus bradycardia, QT corrected of 410 ms No previous CA noted. Intake Vital Signs08/08/17 Height 6 ft 4 in 08/08/17 Weight: 326 lb 08/08/17 Body Mass Index (BMI) 39.6 08/08/17 Blood Pressure 118/72 08/08/17 Respiratory Rate 16 08/08/17 Pulse Rate 52 Intake Visit Reasons: 6 M FU Allergies pravastatin Adverse Reaction (Intermediate, Verified 08/08/17 13:37) myalgias simvastatin [From Zocor] Adverse Reaction (Intermediate, Verified 08/08/17 13:37) Myalgias Medications Aspirin [Adult Low Dose Aspirin EC] 81 mg PO DAILY 08/19/15 [History Confirmed 08/08/17] Ezetimibe [Zetia] 10 mg PO DAILY 08/19/15 [History Confirmed 08/05/17] Hydrochlorothiazide [Hctz] 12.5 mg PO DAILY 08/19/15 [History Confirmed 08/05/17] Latanoprost 0.005% [Xalatan Opthalmic] 1 drp EACH EYE UD 08/19/15 [History Confirmed 08/05/17] Levothyroxine Sodium [Levoxyl] 88 mcg PO DAILY 08/19/15 [History Confirmed 08/05/17] Nabumetone [Relafen] 500 mg PO BID 08/19/15 [History Confirmed 08/05/17] Potassium Chloride [K-Dur] 10 meq PO DAILY 08/19/15 [History Confirmed 08/05/17] metoprolol succinate ER 25 mg tablet,extended release 24 hr 25 mg PO QDAY tab 08/05/17 [History Confirmed 08/05/17] moexipril 15 mg tablet 15 mg PO QDAY 08/05/17 [History Confirmed 08/05/17] warfarin 5 mg tablet 5 mg PO .COMPLEX 08/05/17 [History Confirmed 08/05/17] flecainide 100 mg tablet 100 mg PO BID #180 tab 08/08/17 [Rx Confirmed 08/08/17] Ejection fraction %: 65 to 70 PFSH Medical History Hyperlipidemia (Chronic) Hypertension (Chronic) History of left heart catheterization (Chronic) 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) History of pulmonary embolism (Chronic) Paroxysmal atrial tachycardia (Chronic) 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) Paroxysmal atrial fibrillation (Chronic) Ascending aortic aneurysm (Chronic) Surgical History History of radiofrequency ablation procedure for cardiac arrhythmia (Chronic 03/2000) H/O umbilical hernia repair (Chronic) History of appendectomy (Chronic) History of tonsillectomy (Chronic) Family History Father CAD (coronary artery disease) Mother Arrhythmia Social History Smoking Status: Former smoker pack-years: 5 ROS Const Const: Negative for fatigue, weakness, difficulty sleeping, frequent falls, headache(s) or excessive sweating Eyes Eyes: Negative for loss of peripheral vision, transient loss of vision, blurry vision or double vision ENT ENT: Negative for headache(s), Negative for dizziness, Negative for Nosebleed/epistaxis, Negative for balance problems Cardio Chest Pain: No Edema: None Muscle aches with walking: None Resp Respiratory: Positive for SOB with activity (When climbing stairs); negative for SOB at rest, SOB orthopnea\SOB lying down or paroxysmal nocturnal dyspnea GI GI: Negative nausea or heartburn : Negative for hematuria Musc Musc: Negative for muscle aches/ myalgia, muscle weakness, joint pain or balance problems Skin Skin: Negative non-healing lesions, unusual bruising or rash Neuro Neuro: Negative for weakness, Negative for frequent falls, Negative for blurry vision, Negative for headache(s), Negative for dizziness, Negative for lightheadedness, Negative for orthostatic symptoms, Negative for double vision Gee Hematologic/Lymphatic: Negative for easy bruising Endo Endo: Negative for fatigue, excessive sweating or increased thirst/drinking Psych Psych: Negative for anxiety or depression Allergy Allergy/Immunology: Negative for hives, Negative for rash Assessment AND Plan Plan 1. Atrial fibrillation: Patient appears to be in sinus rhythm today, and will obtain an EKG to confirm this as well as to check and monitor his QT corrected interval given his flecainide therapy. He has been asymptomatic since her last visit, and his catheterization last year demonstrated minimal nonobstructive coronary disease. Would not recommend repeat stress test at this time unless and until the patient has symptoms. In the meantime he will continue his baby aspirin, flecainide, hydrochlorothiazide, Lopressor, potassium and warfarin. 2. Hyperlipidemia: His LDL and HDL cholesterol are at goal. Continue Zetia. 3. Return office in 6 months. This note was generated using a voice recognition system and there may be incorrect words, spelling or punctuation that were not noted when reviewing the office note prior to saving. Orders Orders: 12 Lead EKG performed by [facility] Today E78.5, I10, I25.10, I47.1, I48.0, I71.2, Z86.711, Z98.89 0 Medications New: Plan Detail Follow Up 6 Months (ugo) 08/08/17 1403 <Electronically signed by Matt Cates MD> Date Matt Cates MD Cosigner Signature: Date (if applicable) CC: 12 LEAD EKG PERFORMED Observed: 08/08/2017 Status: F Source: [place] BY [facility] 1:59 PM [facility] REPOSITORY [facility] [address] [place] [address] 12 Lead EKG performed by [facility] 08/08/17 1357 MR#: [id number] Acct: [id number] Name: DIMITRIS OCHOA Rep #: [id number] : 1945 72 From: Matt Cates MD Attending Dr: Matt Cates MD Status: DEP AMB Ordering Dr: Matt Cates MD Date: 08/08/17 Location: [facility] [place] Sex: M C Admitted: BMS/12 Lead EKG performed by [facility] ECG Report Interpretation Marked sinus Bradycardia -Incomplete left bundle branch block. ABNORMAL Electronically signed on 09/12/2017 at 13:50 by Matt Cates 09/12/17 1353 Date Matt Cates MD CC: Fartun Fitzpatrick MD Date Dictated: 08/08/171356 Date Transcribed: 08/08/171356 Cyber Security Engineer: Signed PROGRESS Observed: 08/01/2017 Status: COMPLETED Source: [place] 3:09 PM [facility] REPOSITORY HNO ID: [id number] Author: Fartun Fitzpatrick Service: (none) Author Type: Physician Type: Progress Notes Filed: 08/11/2017 9:25 AM Note Text: Patient presents with: F/U 6 Month SUBJECTIVE: Dimitris Ochoa is a 72 year old year old gentleman here today for follow up appointment for review of medical conditions. Getting over a cold for about 2 weeks. Some yellow drainage. Sometimes blood. Congestion at night. Was on antibiotic for eye infection. Was treated with Bactrim by Dr. Dunn. Getting better even after antibiotic completed. Colonoscopy tomorrow. Stable from cardiac standpoint. Continues to check INRs on home INR machine. Has been doing well with coumadin management with checking INR at home and using MyChart. PAST MEDICAL HISTORY Diagnosis Date - Abdominal pain, left lower quadrant - Abscess of anal and rectal regions - Anticoagulated on Coumadin 11/28/2016 - Diverticulosis of colon (without mention of hemorrhage) - Dizziness and giddiness - Generalized osteoarthrosis, unspecified site - Hypothyroidism 04/07/2010 - Lipoma of other skin and subcutaneous tissue - Paroxysmal ventricular tachycardia (HCC) Dr. Arana in past; currently Dr. Cates - [facility] - PAST MEDICAL HISTORY OF glaucoma - [facility] - PAST MEDICAL HISTORY OF blood clots in lungs AND legs - Sebaceous cyst - Unspecified essential hypertension - Unspecified hypothyroidism Current Outpatient Prescriptions: fluticasone (FLONASE) 50 mcg/actuation nasal spray Use 2 Sprays in each nostril once daily. Rinse mouth after use. As needed levothyroxine (SYNTHROID) 88 mcg tablet TAKE ONE TABLET ONCE DAILY (ADD ONE-HALF (1/2) TABLET ONCE WEEKLY TOTAL SEVEN AND ONE-HALF TABLETS PER WEEK) warfarin (COUMADIN) 5 mg tablet Take 1 tablet (5 mg) on , Tuesday, and 1 and one half tablets (7.5 mg) all other days, or as directed nabumetone (RELAFEN) 500 mg tablet TAKE 1 TABLET TWICE A DAY WITH MEALS hydroCHLOROthiazide (HYDRODIURIL, ESIDRIX) 25 mg tablet Take 0.5 tablets by mouth once daily. metoprolol succinate ER (TOPROL XL) 25 mg 24 hr tablet Take 1 tablet by mouth once daily. ezetimibe (ZETIA) 10 mg tablet Take 1 tablet by mouth once daily. latanoprost(XALATAN 0.005 % EYE DROPS) Take as directed potassium chloride(KLOR-CON 10 10 MEQ TAB) Take one(1) tablet daily. aspirin(ADULT ASPIRIN EC LOW STRENGTH 81 MG TAB, DELAYED RELEASE) Take one(1) tablet daily. TAMBOCOR 100 MG TAB take one (1) tablet twice a day No current facility-administered medications for this visit. REVIEW OF SYSTEMS Aside from above, Constitutional, HEENT, CV, PULM, GI, , PSYCH, DERM, HEM/ONC, NEURO negative. OBJECTIVE: BP 102/72 (BP Site: Right Arm, BP Position: Sitting, BP Cuff Size: Regular Adult) Pulse (!) 48 Resp 16 Wt (!) 144.2 kg (318 lb) BMI 40.38 kg/m2 Patient is alert, oriented times 3, no apparent distress, affect is bright, reactive. Last 5 Encounter BP Readings: Date: BP: 08/01/2017 102/72 11/12/2016 138/82 05/07/2016 118/66 11/05/2015 144/70[our cuff[ 10/23/2015 136/87[carley bp- left arm- large cuff[ Last 5 Encounter Wt Readings: Date: Wt: 08/01/2017 144.2 kg (318 lb) 11/12/2016 140.2 kg (309 lb) 05/07/2016 138.8 kg (306 lb) 11/05/2015 146.1 kg (322 lb) 10/23/2015 146.1 kg (322 lb) Heart: Regular rate, rhythm, no murmurs, gallops, rubs. Lungs: Clear to auscultation, bilaterally, breathing non labored. Ext: No cyanosis, clubbing, or edema. Component Latest Ref Rng AND Units 11/10/2016 07/27/2017 Protein, Total 6.3 - 8.0 g/dL 7.4 7.3 Albumin 3.9 - 4.9 g/dL 3.8 (L) 3.8 (L) Calcium 8.5 - 10.2 mg/dL 9.2 9.4 Bilirubin, Total 0.2 - 1.3 mg/dL 1.6 (H) 0.8 Alkaline Phosphatase 36 - 108 U/L 51 56 AST 14 - 40 U/L 26 26 Glucose 74 - 99 mg/dL 88 55 (L) BUN 9 - 24 mg/dL 18 20 Creatinine 0.73 - 1.22 mg/dL 1.29 (H) 1.59 (H) Sodium 136 - 144 mmol/L 140 141 Potassium 3.7 - 5.1 mmol/L 4.6 4.4 Chloride 97 - 105 mmol/L 103 102 CO2 22 - 30 mmol/L 27 28 Anion Gap 9 - 18 mmol/L 10 11 ALT 10 - 54 U/L 21 23 eGFR- >60 52 eGFR-All Other Races . 55 43 WBC 3.70 - 11.00 k/uL 6.49 5.83 RBC 4.20 - 6.00 m/uL 4.76 4.77 Hemoglobin 13.0 - 17.0 g/dL 14.0 14.4 Hematocrit 39.0 - 51.0 % 44.7 44.9 MCV 80.0 - 100.0 fL 93.9 94.1 MCH 26.0 - 34.0 pG 29.4 30.2 MCHC 30.5 - 36.0 g/dL 31.3 32.1 RDW-CV 11.5 - 15.0 % 14.1 14.6 Platelet Count 150 - 400 k/uL 211 219 MPV 9.0 - 12.7 fL 11.6 11.7 Absolute nRBC <0.01 k/uL 0.02 (H) TSH 0.400 - 5.500 uU/mL 1.640 2.310 Hep C Antibody IA Negative Negative Free T4 0.9 - 1.7 ng/dL 1.3 1.4 Magnesium 1.7 - 2.3 mg/dL 2.2 ASSESSMENT AND PLAN: Encounter Diagnosis ICD-10-CM 1. Subacute sinusitis, unspecified location J01.90 resolving 2. Class 3 severe obesity due to excess calories without serious comorbidity with body mass index (BMI) of 40.0 to 44.9 in adult (HCC) E66.01 Z68.41 3. Atrial fibrillation, unspecified type ([facility]) I48.91 4. Essential hypertension I10 5. Anticoagulated on Coumadin Z51.81 Z79.01 6. Paroxysmal supraventricular tachycardia ([facility]) I47.1 7. Acquired hypothyroidism E03.9 8. Hypercholesterolemia E78.00 9. CKD (chronic kidney disease) stage 3, GFR 30-59 ml/min N18.3 Labs reviewed Weight back up. Aside from resolving sinusitis symptoms, has been doing well. Above issues addressed with patient. Patient involved in shared decision making for management of her medical issues. History and medications reviewed. Epic updated as needed Refills taken care of and meds adjusted as indicated after reviewed history, exam and labs. Health Maintenance reviewed. Updated record and/or ordered tests as recorded. Encouraged on efforts at healthy diet and regular exercise and adequate sleep. Needs to keep working on diet and exercise with lifestyle changes for effective weight loss. The majority of the visit was spent counseling and/or coordinating care for the patient. Bmeh-dq-eihq time was at least 25 minutes. Fartun Fitzpatrick MD CNOV Observed: 08/01/2017 Status: COMPLETED Source: [place] 2:20 PM [facility] REPOSITORY Office Visit (INTMWS) DIMITRIS OCHOA ([id number]) 1945 M Date Time Provider Department 08/01/17 2:20 PM FARTUN FITZPATRICK During your visit today, we recorded the following information about you: Pulse Respiration Blood pressure Weight 48/minute 16/minute 102/72 144.2 kg Fartun Fitzpatrick MD 08/11/2017 9:25 AM Signed Patient presents with: F/U 6 Month SUBJECTIVE: Dimitris Ochoa is a 72 year old year old gentleman here today for follow up appointment for review of medical conditions. Getting over a cold for about 2 weeks. Some yellow drainage. Sometimes blood. Congestion at night. Was on antibiotic for eye infection. Was treated with Bactrim by Dr. Dunn. Getting better even after antibiotic completed. Colonoscopy tomorrow. Stable from cardiac standpoint. Continues to check INRs on home INR machine. Has been doing well with coumadin management with checking INR at home and using MyChart. PAST MEDICAL HISTORY Diagnosis Date - Abdominal pain, left lower quadrant - Abscess of anal and rectal regions - Anticoagulated on Coumadin 11/28/2016 - Diverticulosis of colon (without mention of hemorrhage) - Dizziness and giddiness - Generalized osteoarthrosis, unspecified site - Hypothyroidism 04/07/2010 - Lipoma of other skin and subcutaneous tissue - Paroxysmal ventricular tachycardia (HCC) Dr. Arana in past; currently Dr. Cates - [facility] - PAST MEDICAL HISTORY OF glaucoma - PMH - PAST MEDICAL HISTORY OF blood clots in lungs ANDamp; legs - Sebaceous cyst - Unspecified essential hypertension - Unspecified hypothyroidism Current Outpatient Prescriptions: fluticasone (FLONASE) 50 mcg/actuation nasal spray Use 2 Sprays in each nostril once daily. Rinse mouth after use. As needed levothyroxine (SYNTHROID) 88 mcg tablet TAKE ONE TABLET ONCE DAILY (ADD ONE-HALF (1/2) TABLET ONCE WEEKLY TOTAL SEVEN AND ONE-HALF TABLETS PER WEEK) warfarin (COUMADIN) 5 mg tablet Take 1 tablet (5 mg) on , Tuesday, and 1 and one half tablets (7.5 mg) all other days, or as directed nabumetone (RELAFEN) 500 mg tablet TAKE 1 TABLET TWICE A DAY WITH MEALS hydroCHLOROthiazide (HYDRODIURIL, ESIDRIX) 25 mg tablet Take 0.5 tablets by mouth once daily. metoprolol succinate ER (TOPROL XL) 25 mg 24 hr tablet Take 1 tablet by mouth once daily. ezetimibe (ZETIA) 10 mg tablet Take 1 tablet by mouth once daily. latanoprost(XALATAN 0.005 % EYE DROPS) Take as directed potassium chloride(KLOR-CON 10 10 MEQ TAB) Take one(1) tablet daily. aspirin(ADULT ASPIRIN EC LOW STRENGTH 81 MG TAB, DELAYED RELEASE) Take one(1) tablet daily. TAMBOCOR 100 MG TAB take one (1) tablet twice a day No current facility-administered medications for this visit. REVIEW OF SYSTEMS Aside from above, Constitutional, HEENT, CV, PULM, GI, , PSYCH, DERM, HEM/ONC, NEURO negative. OBJECTIVE: BP 102/72 (BP Site: Right Arm, BP Position: Sitting, BP Cuff Size: Regular Adult) Pulse (!) 48 Resp 16 Wt (!) 144.2 kg (318 lb) BMI 40.38 kg/m2 Patient is alert, oriented times 3, no apparent distress, affect is bright, reactive. Last 5 Encounter BP Readings: Date: BP: 08/01/2017 102/72 11/12/2016 138/82 05/07/2016 118/66 11/05/2015 144/70[our cuff[ 10/23/2015 136/87[carley bp- left arm- large cuff[ Last 5 Encounter Wt Readings: Date: Wt: 08/01/2017 144.2 kg (318 lb) 11/12/2016 140.2 kg (309 lb) 05/07/2016 138.8 kg (306 lb) 11/05/2015 146.1 kg (322 lb) 10/23/2015 146.1 kg (322 lb) Heart: Regular rate, rhythm, no murmurs, gallops, rubs. Lungs: Clear to auscultation, bilaterally, breathing non labored. Ext: No cyanosis, clubbing, or edema. Component Latest Ref Rng ANDamp; Units 11/10/2016 07/27/2017 Protein, Total 6.3 - 8.0 g/dL 7.4 7.3 Albumin 3.9 - 4.9 g/dL 3.8 (L) 3.8 (L) Calcium 8.5 - 10.2 mg/dL 9.2 9.4 Bilirubin, Total 0.2 - 1.3 mg/dL 1.6 (H) 0.8 Alkaline Phosphatase 36 - 108 U/L 51 56 AST 14 - 40 U/L 26 26 Glucose 74 - 99 mg/dL 88 55 (L) BUN 9 - 24 mg/dL 18 20 Creatinine 0.73 - 1.22 mg/dL 1.29 (H) 1.59 (H) Sodium 136 - 144 mmol/L 140 141 Potassium 3.7 - 5.1 mmol/L 4.6 4.4 Chloride 97 - 105 mmol/L 103 102 CO2 22 - 30 mmol/L 27 28 Anion Gap 9 - 18 mmol/L 10 11 ALT 10 - 54 U/L 21 23 eGFR- ANDgt;60 52 eGFR-All Other Races . 55 43 WBC 3.70 - 11.00 k/uL 6.49 5.83 RBC 4.20 - 6.00 m/uL 4.76 4.77 Hemoglobin 13.0 - 17.0 g/dL 14.0 14.4 Hematocrit 39.0 - 51.0 % 44.7 44.9 MCV 80.0 - 100.0 fL 93.9 94.1 MCH 26.0 - 34.0 pG 29.4 30.2 MCHC 30.5 - 36.0 g/dL 31.3 32.1 RDW-CV 11.5 - 15.0 % 14.1 14.6 Platelet Count 150 - 400 k/uL 211 219 MPV 9.0 - 12.7 fL 11.6 11.7 Absolute nRBC ANDlt;0.01 k/uL 0.02 (H) TSH 0.400 - 5.500 uU/mL 1.640 2.310 Hep C Antibody IA Negative Negative Free T4 0.9 - 1.7 ng/dL 1.3 1.4 Magnesium 1.7 - 2.3 mg/dL 2.2 ASSESSMENT AND PLAN: Encounter Diagnosis ICD-10-CM 1. Subacute sinusitis, unspecified location J01.90 resolving 2. Class 3 severe obesity due to excess calories without serious comorbidity with body mass index (BMI) of 40.0 to 44.9 in adult (HCC) E66.01 Z68.41 3. Atrial fibrillation, unspecified type (HCC) I48.91 4. Essential hypertension I10 5. Anticoagulated on Coumadin Z51.81 Z79.01 6. Paroxysmal supraventricular tachycardia (HCC) I47.1 7. Acquired hypothyroidism E03.9 8. Hypercholesterolemia E78.00 9. CKD (chronic kidney disease) stage 3, GFR 30-59 ml/min N18.3 Labs reviewed Weight back up. Aside from resolving sinusitis symptoms, has been doing well. Above issues addressed with patient. Patient involved in shared decision making for management of her medical issues. History and medications reviewed. Epic updated as needed Refills taken care of and meds adjusted as indicated after reviewed history, exam and labs. Health Maintenance reviewed. Updated record and/or ordered tests as recorded. Encouraged on efforts at healthy diet and regular exercise and adequate sleep. Needs to keep working on diet and exercise with lifestyle changes for effective weight loss. The majority of the visit was spent counseling and/or coordinating care for the patient. Fcqg-rg-wifk time was at least 25 minutes. Fartun Fitzpatrick MD Referring Provider: SELF [200] Allergies As of Date: 08/01/2017 Noted Allergy Reaction LEVAQUIN (LEVOFLOXACIN) 08/24/2013 14 - Other: See Comments Comments: Reports nightmares LIPITOR (ATORVASTATIN) 11/05/2015 17 - Myalgia Comments: stopped by Dr. Cates LOVASTATIN 02/18/2014 14 - Other: See Comments Comments: muscle aches PRAVASTATIN 02/18/2014 14 - Other: See Comments Comments: muscle aches SIMVASTATIN 02/18/2014 14 - Other: See Comments Comments: muscle aches GKQCHWA-EVR-YTH REDUCTASE INHIBIT*11/05/2015 17 - Myalgia Comments: tried them all CEFTIN (CEFUROXIME) 02/22/2011 6 - Diarrhea Date Reviewed: 08/01/2017 Reviewed by: Deidre Leone LPN - Fully Assessed Reason for Visit: F/U 6 Month [444] Primary Visit Diagnosis:Subacute sinusitis, unspecified location [J01.90] Comment:resolving Other Visit Diagnoses:Class 3 severe obesity due to excess calories without serious comorbidity with body mass index (BMI) of 40.0 to 44.9 in adult (HCC) [E66.01, Z68.41] Atrial fibrillation, unspecified type (HCC) [I48.91] Essential hypertension [I10] Anticoagulated on Coumadin [Z51.81, Z79.01] Paroxysmal supraventricular tachycardia (HCC) [I47.1] Acquired hypothyroidism [E03.9] Hypercholesterolemia [E78.00] CKD (chronic kidney disease) stage 3, GFR 30-59 ml/min [N18.3] Order(s):fluticasone (FLONASE) 50 mcg/actuation nasal sprayUse 2 Sprays in each nostril once daily. Rinse mouth after use. As neededDisp: 1 BottleRfl: 1 Prescriptions as of 08/01/2017 Sig: FLUTICASONE 50 MCG/ACTUATION * Use 2 Sprays in each nostril * LEVOTHYROXINE 88 MCG TABLET TAKE ONE TABLET ONCE DAILY (A* WARFARIN 5 MG TABLET Take 1 tablet (5 mg) on * NABUMETONE 500 MG TABLET TAKE 1 TABLET TWICE A DAY WIT* HYDROCHLOROTHIAZIDE 25 MG TAB* Take 0.5 tablets by mouth onc* METOPROLOL SUCCINATE ER 25 MG* Take 1 tablet by mouth once d* EZETIMIBE 10 MG TABLET Take 1 tablet by mouth once d* * XALATAN 0.005 % EYE DROPS Take as directed * KLOR-CON 10 MEQ TABLET,EXTEND* Take one(1) tablet daily. * ADULT ASPIRIN EC LOW STRENGTH* Take one(1) tablet daily. * TAMBOCOR 100 MG TABLET take one (1) tablet twice a d* Medication notes this encounter NIACIN ER 500 MG TABLET,EXTENDED RELEASE 24 HR >> Deidre Benjaminte SOFTWARE LICENSING SPECIALIST 08/01/2017 2:34 PM >> DEIDRE LEONE LPN TueAug 01, 2017 2:34 PM Not taking FLUTICASONE 50 MCG/ACTUATION NASAL SPRAY,SUSPENSION >> Deidre Hotte SOFTWARE LICENSING SPECIALIST 08/01/2017 2:33 PM >> KATELYNTEDEIDRE LPN TueAug 01, 2017 2:33 PM Not taking More... More... Problem List As Of Date 08/01/2017 Noted Resolved UNCERTAIN BEHAV NEOPL NERV SYS NEC [D43.9] INVALID FOR* More... BPH W URINARY OBS/LUTS [N40.1] INVALID FOR* Atrial Fibrillation [I48.91] INVALID FOR* More... Obesity [E66.9] INVALID FOR* HYPERLIPIDEMIA NEC/NOS [E78.5] INVALID FOR* More... GASTRITIS/DUODEN NOS W/O HEMORRH [K29.70, K29.9*INVALID FOR* More... Routine general medical examination at a [facility]*INVALID FOR*11/11/2014 More... OSTEOARTHROS NOS-OTHER SITE [M19.90] INVALID FOR* Essential hypertension [I10] INVALID FOR* More... Bladder Neck Obstruction [N32.0] INVALID FOR* H/O: Hematuria [Z87.448] INVALID FOR* Hypothyroidism [E03.9] INVALID FOR* Umbilical hernia without mention of obstruction*INVALID FOR* Paroxysmal supraventricular tachycardia [I47.1] INVALID FOR* More... Cor athrscl-uns vessel [I25.10] INVALID FOR* More... Other pulmonary embolism and infarction [I26.99]INVALID FOR* More... Heel spur [M77.30] INVALID FOR* Hypercholesterolemia [E78.00] INVALID FOR* Imaging abnormality [R93.8] INVALID FOR* Anticoagulated on Coumadin [Z51.81, Z79.01] INVALID FOR* Prescriptions ordered this encounter Disp Refills Start End FLUTICASONE 50 MCG/ACTUATION NASAL S* 1 Sacha* 1 08/01/2017 08/01/2017 Route: EACH NOSTRIL Sig: Use 2 Sprays in each nostril once daily. Rinse mouth after use. As needed FLUTICASONE 50 MCG/ACTUATION NASAL S* 1 Sacha* 1 08/01/2017 Route: EACH NOSTRIL Sig: Use 2 Sprays in each nostril once daily. Rinse mouth after use. As needed Medications Discontinued During This Encounter fluticasone (FLONASE) 50 mcg/actuati* 1 Sacha* 0 08/14/2013 08/01/2017 Route: EACH NOSTRIL Sig: Use 2 Sprays in each nostril once daily. Rinse mouth after use. Disc: Reason for discontinue is not on file. fluticasone (FLONASE) 50 mcg/actuati* 1 Sacha* 1 08/01/2017 08/01/2017 Route: EACH NOSTRIL Sig: Use 2 Sprays in each nostril once daily. Rinse mouth after use. As needed Disc: Reason for discontinue is not on file. codeine-guaiFENesin (ROBITUSSIN AC) * 120 * 0 10/23/2015 08/01/2017 Class: Print RX Route: ORAL Sig: Take 5-10 mL by mouth four times daily as needed for Cough. May cause drowsiness. Disc: Reason for discontinue is not on file. niacin sustained release (NIASPAN) 5* 02/18/2014 08/01/2017 Class: Med Update Route: ORAL Sig: Take 1 tablet by mouth daily at bedtime. ON HOLD Disc: Reason for discontinue is not on file. coenzyme Q10 (CO Q-10) 100 mg cap 08/20/2013 08/01/2017 Class: OTC Sig: Has 200 mg capsules -- Take 1 per day Disc: Reason for discontinue is not on file. Disposition: Return in about 6 months (around 01/29/2018) for 6 months follow up, With labs prior. Follow-up and Disposition History Recorded Encounter Status:Closed by FARTUN FITZPATRICK MD on 08/11/17 COMP METABOLIC PANEL Collected: 07/27/2017 Status: F Source: [place] 10:39 AM [facility] [place] REPOSITORY TYPE CODE TESTS RESULT OUT OF REFERENCE UNITS RANGE LAB TP 6.3-8.0 g/dL Protein, Total 7.3 LAB ALB 3.9-4.9 g/dL Low Albumin 3.8 LAB CA 8.5-10.2 mg/dL Calcium, Total 9.4 LAB TBIL 0.2-1.3 mg/dL Bilirubin, Total 0.8 LAB ALKP 36-108 U/L Alkaline Phosphatase 56 LAB AST 14-40 U/L AST 26 LAB GLU 74-99 mg/dL Low Glucose 55 Result Comment: The [place] [employer] (ADA) provides guidance for cutoff values for fasting glucose and random glucose. The ADA defines fasting as no caloric intake for at least 8 hours. Fas ting plasma glucose results between 100 to 125 mg/dL indicate increased risk for diabetes (prediabetes). Fasting plasma glucose results greater than or equal to 126 mg/dL meet the criteria for diagnosis of diabetes. In the absence of unequivocal hyperglycemia, results should be confirmed by repeat testing. In a patient with classic symptoms of hyperglycemia or hyperglycemic crisis, random plasma glucose results greater than or equal to 200 mg/dL meet the criteria for diagnosis of diabetes. Reference: Standards of Medical Care in Diabetes 2016, [place] [employer]. Diabetes Care. 2016.39(Suppl 1). LAB BUN 9-24 mg/dL BUN 20 LAB CRET 0.73-1.22 mg/dL Creatinine High 1.59 LAB NA 136-144 mmol/L Sodium 141 LAB K 3.7-5.1 mmol/L Potassium 4.4 LAB CL 97-105 mmol/L Chloride 102 LAB CO2 22-30 mmol/L CO2 28 LAB AGAP 9-18 mmol/L Anion Gap 11 LAB ALT 10-54 U/L ALT 23 LAB GFRAA eGFR- Amer. 52 LAB GFRNAA . eGFR-All Other Races 43 Result Comment: eGFR (Estimated GFR) Units of measure: mL/min/1.73 meters squared eGFR is derived from the reexpressed MDRD Study equation using the following parameters: serum creatinine, age, gender and race. The creatinine assay has been calibrated to be traceable to IDMS. An eGFR <60 mL/min/1.73m2 for >3 months is consistent with chronic kidney disease. Refer to KDOQI guidelines for clinical interpretation. In patients with unstable renal function, e.g. those with acute kidney injury, the eGFR may not accurately reflect actual GFR. Performed By: #### CMP, MG1, FT4, TSH, CBC #### [facility] [address] [phone] MAGNESIUM Collected: 07/27/2017 Status: F Source: [place] 10:39 AM [facility] REPOSITORY TYPE CODE TESTS RESULT OUT OF REFERENCE UNITS RANGE LAB MG 1.7-2.3 mg/dL Magnesium 2.2 Performed By: #### CMP, MG1, FT4, TSH, CBC #### [facility] [address] [phone] FREE T4 Collected: 07/27/2017 Status: F Source: [place] 10:39 AM [facility] REPOSITORY TYPE CODE TESTS RESULT OUT OF RANGE REFERENCE UNITS LAB FT4 0.9-1.7 ng/dL Free T4 1.4 Performed By: #### CMP, MG1, FT4, TSH, CBC #### [facility] [address] [phone] TSH Collected: 07/27/2017 Status: F Source: [place] 10:39 [facility] REPOSITORY TYPE CODE TESTS RESULT OUT OF RANGE REFERENCE UNITS LAB TSH 0.400-5.500 uU/mL TSH 2.310 Performed By: #### CMP, MG1, FT4, TSH, CBC #### [facility] [address] [place] [address] CBC Collected: 07/27/2017 Status: F Source: [place] 10:39 AM [facility] REPOSITORY TYPE CODE TESTS RESULT OUT OF REFERENCE UNITS RANGE LAB WBC 3.70-11.00 k/uL WBC 5.83 LAB RBC 4.20-6.00 m/uL RBC 4.77 LAB HGB 13.0-17.0 g/dL Hemoglobin 14.4 LAB HCT 39.0-51.0 % Hematocrit 44.9 LAB MCV 80.0-100.0 fL MCV 94.1 LAB MCH 26.0-34.0 pG MCH 30.2 LAB MCHC 30.5-36.0 g/dL MCHC 32.1 LAB RDWCV 11.5-15.0 % RDW-CV 14.6 LAB PLTCT 150-400 k/uL Platelet Count 219 Result Comment: Result checked and verified No clot detected. LAB MPV 9.0-12.7 fL MPV 11.7 LAB ABSNUC <0.01 k/uL High Absolute nRBC 0.02 Performed By: #### CMP, MG1, FT4, TSH, CBC #### [facility] [address] [place], [place] [address] CNPTOUTREACH Observed: 07/19/2017 Status: COMPLETED Source: [place] 12:00 AM [facility] REPOSITORY Patient Outreach (FAMPST) DIMITRIS OCHOA ([id number]) 1945 M Date Time Provider Department 07/19/17 FARTUN FITZPATRICK FAMPST During your visit today, we recorded the following information about you: Allergies As of Date: 07/19/2017 Noted Allergy Reaction LEVAQUIN (LEVOFLOXACIN) 08/24/2013 14 - Other: See Comments Comments: Reports nightmares LIPITOR (ATORVASTATIN) 11/05/2015 17 - Myalgia Comments: stopped by Dr. Cates LOVASTATIN 02/18/2014 14 - Other: See Comments Comments: muscle aches PRAVASTATIN 02/18/2014 14 - Other: See Comments Comments: muscle aches SIMVASTATIN 02/18/2014 14 - Other: See Comments Comments: muscle aches KAEHMYR-CKO-HGA REDUCTASE INHIBIT*11/05/2015 17 - Myalgia Comments: tried them all CEFTIN (CEFUROXIME) 02/22/2011 6 - Diarrhea Date Reviewed: 11/12/2016 Reviewed by: Dorina Mckeon Adult Probation Officer - Fully Assessed Visit Diagnosis:Medication management [Z79.899] Order(s):LIPID PANEL BASIC [SQLIPB] Order #: [id number] FUTURE Prescriptions as of 07/19/2017 Sig: LEVOTHYROXINE 88 MCG TABLET TAKE ONE TABLET ONCE DAILY (A* WARFARIN 5 MG TABLET Take 1 tablet (5 mg) on * NABUMETONE 500 MG TABLET TAKE 1 TABLET TWICE A DAY WIT* HYDROCHLOROTHIAZIDE 25 MG TAB* Take 0.5 tablets by mouth onc* METOPROLOL SUCCINATE ER 25 MG* Take 1 tablet by mouth once d* EZETIMIBE 10 MG TABLET Take 1 tablet by mouth once d* X CODEINE 10 MG-GUAIFENESIN 100* Take 5-10 mL by mouth four ti* X NIACIN ER 500 MG TABLET,EXTEN* Take 1 tablet by mouth daily * X COENZYME Q10 100 MG CAPSULE Has 200 mg capsules -- Take 1* X FLUTICASONE 50 MCG/ACTUATION * Use 2 Sprays in each nostril * * XALATAN 0.005 % EYE DROPS Take as directed * KLOR-CON 10 MEQ TABLET,EXTEND* Take one(1) tablet daily. * ADULT ASPIRIN EC LOW STRENGTH* Take one(1) tablet daily. * TAMBOCOR 100 MG TABLET take one (1) tablet twice a d* More... More... Problem List As Of Date 07/19/2017 Noted Resolved UNCERTAIN BEHAV NEOPL NERV SYS NEC [D43.9] INVALID FOR* More... BPH W URINARY OBS/LUTS [N40.1] INVALID FOR* Atrial Fibrillation [I48.91] INVALID FOR* More... Obesity [E66.9] INVALID FOR* HYPERLIPIDEMIA NEC/NOS [E78.5] INVALID FOR* More... GASTRITIS/DUODEN NOS W/O HEMORRH [K29.70, K29.9*INVALID FOR* More... Routine general medical examination at a health*INVALID FOR*11/11/2014 More... OSTEOARTHROS NOS-OTHER SITE [M19.90] INVALID FOR* Essential hypertension [I10] INVALID FOR* More... Bladder Neck Obstruction [N32.0] INVALID FOR* H/O: Hematuria [Z87.448] INVALID FOR* Hypothyroidism [E03.9] INVALID FOR* Umbilical hernia without mention of obstruction*INVALID FOR* Paroxysmal supraventricular tachycardia [I47.1] INVALID FOR* More... Cor athrscl-uns vessel [I25.10] INVALID FOR* More... Other pulmonary embolism and infarction [I26.99]INVALID FOR* More... Heel spur [M77.30] INVALID FOR* Hypercholesterolemia [E78.00] INVALID FOR* Imaging abnormality [R93.8] INVALID FOR* Anticoagulated on Coumadin [Z51.81, Z79.01] INVALID FOR* Encounter Status:Closed by [employer], WorkFlowyUSER on 09/11/17 ALLERGIES ALLERGIES DATE TYPE / CODE NAME / CODE REACTION SEVERITY SOURCE 02/21/2018 Drug pravastatin/[id number] MYALGIAS [place] Allergy/416 606(RXNORM) Community 064589([facility] ED CT) Repository 02/21/2018 Drug simvastatin/[id number] MYALGIAS [place] Allergy/416 621(RXNORM) Community 696545([facility] ED CT) Repository 11/05/2015 DRUG ATORVASTATIN Myalgia [facility] INGREDI/419 Other [place] 385569(SN Repository ED CT) 11/05/2015 Drug [id number] Myalgia [facility] Class/46945 REDUCTASE Other [place] 1003(SNOMED INHIBITORS Repository CT) 02/18/2014 DRUG LOVASTATIN OTHER: [facility] INGREDI/419 Other [place] 944885(SN Repository ED CT) 02/18/2014 DRUG PRAVASTATIN OTHER: [facility] INGREDI/419 Other [place] 888584(SN Repository ED CT) 02/18/2014 DRUG SIMVASTATIN OTHER: [facility] INGREDI/419 Other [place] 364976(SN Repository ED CT) 08/24/2013 DRUG LEVOFLOXACIN OTHER: SEE C [facility] INGREDI/419 Other [place] 768058(SNOM Repository ED CT) 02/22/2011 DRUG CEFUROXIME DIARRHEA Low [facility] INGREDI/419 Other [place] 474127(SNOM Repository ED CT) ENCOUNTERS ENCOUNTERS ADMIT/DISCHARGE ACCOUNT ADMITTING ENCOUNTER LOCATION SOURCE NUMBER [facility] 07/12/[id number] [facility] Hospital ing:PT Repository 07/04/2018/07/06/20 [id number] Ambulatory [address] [place] Repository 07/04/2018/07/04/20 [id number] Ambulatory [address] Other [place] Repository 06/09/2018/06/12/20 [id number] Ambulatory [address] [place] Repository 06/02/2018/06/03/20 [id number] JOVANNY, [address] Other [place] Repository 05/22/2018/05/23/20 [id number] Ambulatory [address] [place] Repository 05/22/2018/05/22/20 [id number] Ambulatory [address] [place] Repository 05/12/2018/05/15/20 [id number] Ambulatory [address] [place] Repository 04/11/2018/04/24/20 [id number] Ambulatory [address] [place] Repository 03/02/[id number] [facility] Hospital ing:[facility] Repository 03/02/2018 [id number] Ambulatory BMSBuilding:W [facility] Repository 03/01/[id number] [facility] 03/01/2018 [id number] Ambulatory BMSBuilding:W [facility] Repository 02/21/2018/02/22/20 [id number] Ambulatory BMSBuilding:B [place] [address] [facility] Repository 01/30/2018/02/01/20 [id number] Ambulatory [address] Repository 01/05/2018/02/08/20 [id number] Ambulatory [address] Repository 01/05/2018/01/06/20 [id number] Ambulatory [address] [place] Repository 12/28/[id number] [facility] Hospital ing:[facility] Repository 11/21/2017/01/07/20 [id number] Ambulatory [address] Repository 11/15/2017/01/08/20 [id number] Ambulatory [address] Repository 11/14/2017/11/15/19 [id number] Ambulatory [address] Repository 08/08/2017/08/08/19 [id number] Ambulatory BMSBuilding:B [place] [address] [facility] Repository 08/01/2017/08/01/19 [id number] Ambulatory [address] Repository 07/27/2017/07/27/19 [id number] Ambulatory [address] Repository PAYERS PAYERS ENCOUNTER GUARANTOR PAYER SUBSCRIBER SOURCE 07/12/2018 DIMITRIS Massey [id number] Insurance:AETNA CRITESDOB: [facility] [place]: [id number] [id number] Repository [address]Hcf: 330) Date:1025-14-01[phone] () [id number] [address]EF: 07/12/2018 Secondary NOT GIVENUNK [place] Insurance:SELF PAY [facility] Number: Effective Repository Date:2018-06-20 03/02/2018 DIMITRIS Massey [id number] Insurance:AETNA CRITESDOB: [facility] Number: [id number] [id number] Repository [address]Top: 330) Date:9146-13-64[phone] () [place], [place] [address]SE: 03/02/2018 Secondary NOT GIVENUNK Bryson Insurance:SELF PAY [facility] Number: Effective Repository Date:2018-02-21 03/02/2018 DIMITRIS Massey [id number] Insurance:AETNA CRITESDOB: [facility] Number: [id number] [id number] Repository 35598Vjn: ([phone]) Date:[id number] [phone] (HP) [id number] [place] [address]FQ: 03/02/2018 Secondary NOT GIVENUNK Bryson Insurance:SELF PAY [facility] Number: Effective Repository Date:2018-03-02 03/01/2018 DIMITRIS L Primary DIMITRIS L Bryson [id number] Insurance:AETNA CRITESDOB: Community MAYI MCRPolicy [place]: [id number] [id number] Repository 00019Iyn: ([phone]) Date:0377-94-60DE [phone] (HP) [id number] [place] [address]JE: 03/01/2018 Secondary NOT GIVENUNK Bryson Insurance:SELF PAY [facility] Number: Effective Repository Date:2018-02-21 03/01/2018 DIMITRIS L Primary DIMITRIS L Bryson [id number] Insurance:AETNA CRITESDOB: Community [facility]: [id number] [id number] Repository 87714Dpl: (330) Date:[id number] [phone] (HP) [id number] [place] [address]SV: 03/01/2018 Secondary NOT GIVENUNK Muse Insurance:SELF PAY [facility] Number: Effective Repository Date:2018-03-01 02/21/2018 DIMITRIS L Primary DIMITRIS L Bryson [id number] Insurance:AETNA CRITESDOB: Community MAYI MCRPolicy [place]: [id number] [id number] Repository 98[address]Veu: (330) Date:0437-56-47GA [phone] (HP) [id number] [place] [address]BN: 02/21/2018 Secondary NOT GIVENUNK Bryson Insurance:SELF [facility]Y [facility] Effective Repository Date:2018-02-21 12/28/2017 DIMITRIS Ceja Primary DIMITRIS Massey [id number] Insurance:AETNA CRITESDOB: Community MAYI MCRPolicy Number: [id number], [place] [id number] Repository 19[address]Oft: (330) Date:1104-25-19SV [phone] () [id number] [place] [id number]: 12/28/2017 Secondary NOT GIVENUNK Bryson Insurance:SELF PAY [facility] Number: Effective Repository Date:2017-12-28 08/08/2017 DIMITRIS Ceja Primary DIMITRIS Massey [id number] Insurance:AETNA CRITESDOB: Community MAYI [facility] Number: [id number] [id number] Repository [address]43[address]Uxm: ([phone]) Date:[id number] [phone] () [id number] [place] [phone]: 08/08/2017 Secondary NOT GIVENUNK Muse Insurance:SELF PAY [facility] Number: Effective Repository Date:2017-06-26
== END 2018-07-17 19:00 | disposition home or self-care (01) ==
LOC: PT 10:30
PROVIDERS: Family Provider Internal Medicine; PCP Internal Medicine
DX: Z96.652 Presence of left artificial knee joint (principal)
CPT/HCPCS: 97110; 97161; 97530

== ENCOUNTER 2018-11-02 11:30 | Outpatient (RCR) | payer MEDICARE, SELFPAY ==
[2018-09-08 10:13] VITALS: BMI 37.8
--- NOTE | 2018-10-03 10:40 | HP.PTEVAL ---
Patient's Visit Information DIMITRIS OCHOA is a 73 year old M referred to Physical Therapy by SHIREEN FUENTES with a diagnosis of Right TKr. Date of Evaluation: 10/03/18 Physical Therapist: Jo Parsons DPT - Visit Plan Frequency: 1x/Week Duration: 3 Weeks Plan: Right TKR 09/11/18- Focus on LE ROM and strength with functional mobility- Edema mgmt if needed - Subjective Findings: Right TKR was Sep 11, [address] Chew had left Jun 02, 2018. One night in the hospital and then went home- Had home health for a few weeks and was released last . Feels this one is harder than last one- taking more pain medication and is more stiff. Worst: 03/03 Agg: bending it, exercises. Eases: ice and elevation Best: 1-09/03. The right hurts into the bone and down the leg to the ankle. Pain starts about the mid thigh. No N/T in the ankle- does have decreased sensation along the lateral aspect of the foot. Prior to surgery he was fully I- driving- x3 days a week in a [facility] [facility]. Feels the left leg is 75% back to normal. Has not seen MD since surgery- goes back next week. No images. Sleep: hard to get comfortable and waks him up. Hard to get comfortable laying down. More comfortable in a reclyner. PMHx/Meds: no changes since last surgery. - Objective Posture: FH, RS, increased kyphosis. Gait: mildly antalgic- decreased stance on the right with poor heel/toe pattern. Stairs: asc/desc 8 recip with 1 HR - requires UE for balance and mild UE A for propulsion for asc and mild uncontrolled desc. HR/TR: able with UE A. SLS: unable without UE A but does weight shift and lift the left LE. Palpation: mild tenderness along medial and lateral joint line. ROM: 5-110 degrees- can get full extn with quad set. Observation: incision healing well no s/s of infection- mild raised scar- no open areas. Strength: anle: 5/5, Knee: 4+/5, Hip: 4+/5 Core: fair. Flex: HS: moderate, Edema: mild throughout the knee - Goals Goal 1:: Patient will be I with HEP and progression Goal Time Frame: 4-6 Weeks Goal 2:: Patient will ambulate >300 feet with a normalized gait pattern Goal Time Frame: 4-6 Weeks Goal 3:: dPatient will asc/desc 8 recip with 1 HR and good control Goal Time Frame: 4-6 Weeks Goal 4:: Patient will demo 0-115 degrees of ROM in the right knee Goal Time Frame: 4-6 Weeks Goal 5:: Patient will report sleeping through the night for 1 week Goal Time Frame: 4-6 Weeks - Rehabilitation Potential Physical Therapy Diagnosis: Patient presents with hypomobility- he has decreased ROM, strength and muscular endurance s/p right TKR leading to abnormal gait and increased pain with ADL's. Rehabilitation Potential: Fair - Anticipated Interventions Patient/Client Instruction: Educate patient on: Benefits of Fitness Program Therapeutic Exercise to Include: Strength training, Endurance training, Balance training, Agility training, Body mechanics, Postural training, Flexibilty training, Gait and locomotor training, Passive ROM, Active ROM, Dynamic Lumbar Stabilization For the Purpose of:: To improve muscle performance and motor function TENS: Yes Cryotherapy (ice pack, ice massage): Yes Thermo therapy (hot pack): Yes Ultrasound (thermal/non thermal): No For the Purpose of:: To decrease pain Thank you for the opportunity to evaluate your patient. For Medicare and Medicare HMO plans, please review the plan of care and approve it. It will need to be FAXED BACK to us at [phone] for Medicare purposes. For Medicare only, by signing this I certify the plan of care. Please let me know if there are questions or concerns regarding this plan of care. Physician Signature: Date:
--- NOTE | 2018-10-23 09:29 | HP.PTREVAL_ITS ---
SHIREEN FUENTES, It has been my pleasure to treat DIMITRIS OCHOA over the last 7 visits for Right TKR. Please see the progress note below for an update on the physical therapy plan of care! Subjective: Patient reports that a week ago he squatted down at home as far as he could and when he got back up it popped and now its painful. Has had 3 episo akash of this and is painful for about 3 days- significant pain and hard to walk- pain is along the lateral aspect of the knee- and is hard to bend. Was about 65% prior to popping and now its not so good. Objective/Function: Posture: FH, RS, increased kyphosis. Gait: mildly antalgic- decreased stance on the right with poor heel/toe pattern. Stairs: asc/desc 8 recip with 1 HR - requires UE for balance and mild UE A for propulsion for asc and mild uncontrolled desc. HR/TR: able with UE A. SLS: unable without UE A but does weight shift and lift the left LE. Palpation: severe tenderness along laterl joint line. ROM: 5-110 degrees- signficant pain with flexion Observation: incision healing well no s/s of infection- mild raised scar- no open areas. Strength: anle: 5/5, Knee: 4+/5, Hip: 4+/5 Core: fair. Flex: HS: moderate, Edema: mild throughout the knee- increased along lateral patella Plan Plan: Continue 2x a week for 2 weeks Goals Goal 1:: Patient will be I with HEP and progression Goal Time Frame: 4-6 Weeks Goal 2:: Patient will ambulate >300 feet with a normalized gait pattern Goal Time Frame: 4-6 Weeks Goal 3:: dPatient will asc/desc 8 recip with 1 HR and good control Goal Time Frame: 4-6 Weeks Goal 4:: Patient will demo 0-115 degrees of ROM in the right knee Goal Time Frame: 4-6 Weeks Goal 5:: Patient will report sleeping through the night for 1 week Goal Time Frame: 4-6 Weeks Anticipated Interventions Patient/Client Instruction: Educate patient on: Benefits of Fitness Program Therapeutic Exercise to Include: Strength training, Endurance training, Balance training, Agility training, Body mechanics, Postural training, Flexibilty training, Gait and locomotor training, Passive ROM, Active ROM, Dynamic Lumbar Stabilization For the Purpose of:: To improve muscle performance and motor function TENS: Yes Cryotherapy (ice pack, ice massage): Yes Thermo therapy (hot pack): Yes Ultrasound (thermal/non thermal): No For the Purpose of:: To decrease pain Please do not hesitate to contact me at [phone] by phone or if you have questions or concerns regarding this new plan of care! Sincerely, JULIANNE RamirezT
--- NOTE | 2018-11-02 12:02 | HP.PTDCSUM ---
HP - PT D/C Summary It has been my pleasure to treat DIMITRIS OCHOA under orders from SHIREEN FUENTES, for the diagnosis of Right TKR for a total of 10 visit(s). Discharge Date: Please see the following information for a summary of their discharge status. - Subjective Subjective: Patient reports that she is making headway and in the correct direction. Would like a little more strength and ROM- feels good with the home exercise program- - Overall Improvement % Improvement: 70 - Objective Objective/Function: Posture: FH, RS, increased kyphosis. Gait: No deviation Stairs: asc/desc 8 recip with 1 HR HR/TR: able with UE A. SLS: 10 seconds Palpation: not tender. ROM: 0-110 degrees- no pain Observation: incision healing well no s/s of infection- mild raised scar- no open areas. Strength: anle: 5/5, Knee:5/5, Hip: 4+/5 Core: fair. Flex: HS: moderate, Edema: none - Goals Goal 1:: Patient will be I with HEP and progression Goal Progress: Goal Met Goal 2:: Patient will ambulate >300 feet with a normalized gait pattern Goal Progress: Goal Met Goal 3:: Patient will asc/desc 8 recip with 1 HR and good control Goal Progress: Goal Met Goal 4:: Patient will demo 0-115 degrees of ROM in the right knee Goal Progress: Goal Met Goal 5:: Patient will report sleeping through the night for 1 week Goal Progress: Goal Met - Plan Plan: Discharge to I HEP - D/C Information If there are questions or concerns regarding this patient's physical therapy, please feel free to call me at [phone]. Thank you for the referral of this patient. Sincerely, JULIANNE RamirezT
== END 2018-11-02 19:00 | disposition home or self-care (01) ==
LOC: PT 11:30
PROVIDERS: Family Provider Internal Medicine; PCP Internal Medicine
DX: Z96.651 Presence of right artificial knee joint (principal)
CPT/HCPCS: 97110; 97161; 97164

== ENCOUNTER → 2019-04-20 12:36 | Outpatient (CLI) | payer MEDICARE, SELFPAY ==
[2019-03-29 14:03] VITALS: BMI 37.7
--- NOTE | 2019-04-20 12:39 | ECHOD_ITS ---
Reason For Study: Aortic Root dilatation Procedure This was a 2D Doppler, Color Flow transthoracic echocardiogram. Exam performed in department. Left Ventricle Normal size and thickness. The estimated ejection fraction is 65 %. Normal diastology for age. No regional wall motion abnormalities noted. Right Ventricle Normal size and thickness. Normal systolic function. Atria The left atrium is mildly enlarged. The right atrium is mildly enlarged. Normal atrial septum. Mitral Valve The mitral valve is structurally normal. No prolapse or stenosis seen. Tricuspid Valve Normal tricuspid valve. Trivial tricuspid valve insufficiency. Right ventricular systolic pressure estimated to be 26 mmHg. Aortic Valve Trisinus/trileaflet aortic valve. Mild focal aortic valve thickening. There is no aortic stenosis. Trivial aortic valve insufficiency. Pulmonic Valve Normal pulmonic valve. Great Vessels Normal aortic root. The ascending aorta is moderate-severely dilated. Normal inferior vena cava. Inferior vena cava collapse with sniff. Pericardium/Pleural No pericardial effusion. MMode/2D Measurements & Calculations LVIDd: 5.4 cm IVSd: 1.3 cm Ao root diam: 5.2 cm LVIDs: 3.4 cm LVPWd: 1.3 cm FS: 36.0 % LAV(MOD-bp): 89.1 ml LA A4 area: 24.1 cm2 LA dimension(2D): 4.5 cm LAV(MOD-bp) Indexed: 33.4 ml/m2 LAV(MOD-sp2): 86.5 ml LAV(MOD-sp4): 78.0 ml RA A4 area: 21.9 cm2 Time Measurements MV dec time: 0.23 sec Doppler Measurements & Calculations MV E max hong: 107.1 cm/sec Lat Peak E' Hong: 10.6 cm/sec Med Peak E' Hong: 8.9 cm/sec MV A max hong: 61.6 cm/sec E/E' lat: 10.1 E/E' med: 12.1 MV E/A: 1.7 Ao V2 max: 130.3 cm/sec LV V1 max: 118.1 cm/sec PA V2 max: 101.8 cm/sec Ao max P.8 mmHg LV V1 max P.6 mmHg TR max hong: 227.3 cm/sec TR max P.7 mmHg Interpretation Summary The estimated ejection fraction is 65 %. Normal diastology for age. The left atrium is mildly enlarged. The right atrium is mildly enlarged. Trivial tricuspid valve insufficiency. Right ventricular systolic pressure estimated to be 26 mmHg. Mild focal aortic valve thickening on non coronary cusp. Trivial aortic valve insufficiency. The ascending aorta is moderate-severely dilated. Compared to echo report dated 03/01/2018, ascendina aortic root dilation has increased from 4.6 to 5.2 cm. This may be overestimated given angle of measurement. Recommend repeat CTA of aorta to further evaluate. Ordering Physician: Matt Cates Referring Physician: Malini Downs Performed By: Sofy Hines, KARY, RVT
== END ==
PROVIDERS: Family Provider Internal Medicine; PCP Internal Medicine; Referring Provider Internal Medicine Cardiovascular Disease; Visit Provider Internal Medicine Cardiovascular Disease
DX: Z98.890 Other specified postprocedural states (principal)
CPT/HCPCS: 93306

== ENCOUNTER → 2019-04-30 13:40 | Outpatient (CLI) | payer MEDICARE, SELFPAY ==
[2019-03-29 14:03] VITALS: BMI 37.7
--- NOTE | 2019-04-30 13:42 | CT_ITS ---
STUDY: CTA CHEST REASON FOR EXAM: Male, 74 years old. Follow-up after echo aortic evaluation RADIATION DOSAGE (If Supplied By Facility): CTDIvol = ( 21.76 ) mGy, DLP = ( 881.22 ) mGycm TECHNIQUE: The examination was performed with the intravenous administration of IV Isovue 370 100CC. Post-processing of the angiographic images was performed, with multiplanar reformation and 3D reconstruction. Individualized dose optimization techniques were used for this CT. COMPARISON: 30 July 2015 FINDINGS: There is ascending aortic aneurysm measuring 50 mm, stable since prior. Aortic arch and descending are normal. Sinuses of Valsalva are normal. There are normal origins of the left and right coronary arteries. There is lingular atelectasis. Otherwise lungs are clear. Airways are patent. Pleural surfaces are intact. Mediastinal contents are normal. Cardiac chamber is normal in size and shape. Osseous structures are intact. There is a benign hemangioma in the manubrium. There is a benign right adrenal adenoma. Appearance is similar to prior. CT/CTA Chest W/WO Contrast IMPRESSION: 1. 5 cm ascending aortic aneurysm, unchanged since July 2015. Electronically Signed: Emory Miller, at 16:13 EDT Tel , Service support ,
[2019-04-30 14:06] LABS: CREATININE FINGERSTICK 0.8 mg/dL (0.70-1.30); EGFR FINGERSTICK > 60.0000 mL/min (>60)
== END ==
PROVIDERS: Family Provider Internal Medicine; PCP Internal Medicine; Referring Provider Internal Medicine Cardiovascular Disease; Visit Provider Internal Medicine Cardiovascular Disease
DX: I71.2 Thoracic aortic aneurysm, without rupture (principal)
CPT/HCPCS: 71275; Q9967

== ENCOUNTER → 2019-05-02 10:19 | Outpatient (CLI) | payer MEDICARE, SELFPAY ==
[2019-03-29 14:03] VITALS: BMI 37.7
--- NOTE | 2019-05-02 10:22 | STEWCON_ITS ---
Reason For Study: ATRIAL FIB/FLUTTER Stress Results Protocol: Kael Protocol WITH DEFINITY Maximum Predicted HR: 148 bpm Target HR: 126 bpm % Maximum Predicted HR: 82 % DurationHeart Rate Stage (mm:ss) (bpm) BP Comment BASELINE 45 146/823 CC DEFINITY STAGE 1 3:00 87 162/82 STAGE 2 3:00 116 174/74SLIGHT SOB STAGE 3 0:30 122 / INCREASED SOB, 1 CC DEFINITY RECOVERY 71 140/821 CC DEFINITY Stress Duration: 6:30 mm:ss Maximum Stress HR: 122 bpm Baseline Echocardiogram Findings The estimated ejection fraction is 65 %. Stress Echo Wall motion Data Resting WM Intermediate WM Stress WM Resting Wall Motion Wall Motion Stress No regional wall motion No regional wall motion abnormalities noted. abnormalities noted. EKG Data The baseline ECG displays normal sinus rhythm. The patient exercised according to the regular Kael protocol for a total duration of 6:30. The maximum heart rate attained was 125 beats per minute. This was 88% of maximum predicted heart rate. The patient exercised into stage 3 of the Kael protocol. At peak exercise, upsloping ST changes only were noted, which did not meet the criteria for ischemia. No clinical angina was noted. Interpretation Summary The estimated ejection fraction is 65 %. Normal, adequate, treadmill echocardiogram. Negative for ischemia by EKG and echocardiographic criteria. No anginal symptoms noted. Rare PVC noted. Appropriate blood pressure response to exercise. Average exercise capacity for age. Test terminated due to the attainment of target heart rate and dyspnea. Final LVEF is 75%. Decreased sensitivity due to poor echo windows requiring Definity agent. No complications. The study was technically difficult. Contrast injection was performed. Ordering Physician: Matt Cates MD Referring Physician: Matt Cates Performed By: Anabel Fajardo RDCS
== END ==
PROVIDERS: Family Provider Internal Medicine; PCP Internal Medicine; Referring Provider Internal Medicine Cardiovascular Disease; Visit Provider Internal Medicine Cardiovascular Disease
DX: I25.10 Atherosclerotic heart disease of native coronary artery without angina pectoris (principal); E78.5 Hyperlipidemia, unspecified; I47.1 Supraventricular tachycardia; I48.0 Paroxysmal atrial fibrillation
CPT/HCPCS: 93017; 93350; Q9957; A4216; C8928

== ENCOUNTER 2019-09-12 23:13 | Emergency (ER) | payer MEDICARE, SELFPAY ==
[2019-03-29 14:03] VITALS: BMI 37.7
[2019-09-12 23:15] VITALS: BP 117/91; PULSE 120; RESP 20; TEMP 36.7; O2SAT 93; BMI 38.7
--- NOTE | 2019-09-13 | EKG12_ITS ---
Test Reason : PALPATATIONS Blood Pressure : / mmHG Vent. Rate : 119 BPM Atrial Rate : 125 BPM P-R Int : 000 ms QRS Dur : 092 ms QT Int : 276 ms P-R-T Axes : 000 055 264 degrees QTc Int : 388 ms Atrial fibrillation with rapid ventricular response T wave abnormality, consider inferolateral ischemia Abnormal ECG Confirmed by ERMA SHAH, NIDA ([id number]), art editor ERIKA CHAMBERS ([id number]) on 09/17/2019 2:34:33 PM Referred By: ALONA Confirmed By:JACKSON RITCHIE MD
--- NOTE | 2019-09-13 | RAD_ITS ---
STUDY: X-RAY CHEST REASON FOR EXAM: Male, 74 years old. pt presents with heart palpitations. denies chest pain. open heart surgery 08-31-19. TECHNIQUE: Single AP portable view of the chest. COMPARISON: 07/30/2015 FINDINGS: The lungs are underexpanded. Ill-defined groundglass opacities are seen in the right and left lung bases may represent pulmonary edema or bilateral pneumonia. Further evaluation by CT scan can be helpful. There is a small left pleural effusion. There is moderate cardiac enlargement. Normal mediastinum and henry. Normal visualized pulmonary arteries. Normal visualized aortic arch and descending thoracic aorta. Normal visualized thoracic spine. There is degenerative osteoarthritis of the bilateral shoulders. There is no demonstrated abnormality of the visualized soft tissue structures of the upper abdomen. RAD/Chest 1 View (Portable) IMPRESSION: Ill-defined groundglass opacities are seen in the right and left lung bases may represent pulmonary edema or bilateral pneumonia. Further evaluation by CT scan can be helpful. There is a small left pleural effusion. Electronically Signed: Enzo Cosme, at 1:50 EST Tel , Service support ,
[2019-09-13] MEDS: dilTIAZem 25 MG/5 ML Vial 10 MG IV BOLUS (00:13)
[2019-09-13 00:15] VITALS: BP 117/80; PULSE 118; RESP 16; O2SAT 94
[2019-09-13 00:15] LABS: Absolute Lymphocyte Count 1.28 X10^3/uL (0.83-4.51); Absolute Neutrophil Count 7.8 X10^3/uL (2.0-7.7); Basophil# 0.07 X10^3/uL; Basophil% 0.6 % (0-1); Eosinophil# 0.48 X10^3/uL; Eosinophils% 4.4 % (0-5); Hematocrit 33.3 % (40-54); Hemoglobin 10.7 g/dL (13.0-16.5); Lymphocyte # 1.28 X10^3/ul (4.0); Lymphocyte % 11.8 % (19-41); Mean Corp Hgb Conc 32.1 g/dL (32-36); Mean Corpuscular Hgb 29.8 pg (27.0-32.0); Mean Corpuscular Volume 92.8 fL (80-94); Mean Platelet Vol. 10.3 fl (6.2-12.0); Monocyte% 10.2 % (0-10); NRBC Flagged by Analyzer 0 % (0-5); Neutrophil # 7.77 X10^3/uL (2.7-7.7); Platelet Count 496 K/mm3 (150-450); RBC Distribution Width CV 15.1 % (11.6-14.6); RBC Distribution Width SD 50.8 fl (35.1-43.9); Red Blood Count 3.59 M/mm3 (4.6-6.2); White Blood Count 10.8 K/mm3 (4.4-11.0)
[2019-09-13] MEDS: 0.9% Normal Saline 1,000 ML 15 ML IV (00:16)
[2019-09-13 00:17] LABS: International Normalized Ratio 2.3; Prothrombin Time (Protime)PT. 24.9 SECONDS (11.7-14.9)
[2019-09-13 00:21] LABS: Anion Gap 7 (5-15); BUN 13 mg/dL (7-18); BUN/Creat Ratio 8.6 RATIO (10-20); Calcium,Total 8.9 mg/dL (8.5-10.1); Chloride 107 mmol/L (98-107); Creatinine, Serum 1.52 mg/dL (0.70-1.30); EST Glomerular Filtration Rate 48 mL/min (>60); Est Glom Filt Rate - Afr Amer 58 mL/min (>60); Estimated Creatinine Clearance 53.93 ml/min; Glucose 103 mg/dL (74-106); Potassium 4.4 mmol/L (3.5-5.1); Sodium Level 137 mmol/L (136-145)
[2019-09-13] MEDS: dilTIAZem 25 MG/5 ML Vial 20 MG IV BOLUS (00:47)
[2019-09-13 00:48] VITALS: BP 117/80; PULSE 123; RESP 18; O2SAT 92
[2019-09-13 01:28] VITALS: BP 112/85; PULSE 93; RESP 18; O2SAT 93
--- NOTE | 2019-09-13 02:10 | ED.DCSUM_ITS ---
History of Present Illness Chief Complaint: Chest Other Detail of Chief Complaint: Palpitations Informant: Patient Onset: Yesterday Narrative: Patient presents with palpitations and believes he is in A. fib. He has a history of paroxysmal A. fib. On August 31 he underwent open heart surgery for aortic aneurysm repair as well as a cardiac ablation. Patient states in spite of this he did go into A. fib after his surgery. He was cardioverted at that time and placed on amiodarone taper. He is currently on Coumadin. Patient states that he does not always feel when he goes into A. fib. Tonight he felt like his heart was racing and was irregular. He has mild shortness of breath. - Past Medical History (1) Ascending aortic aneurysm Status: Chronic (2) Atherosclerotic heart disease of [place] coronary artery without angina pectoris Status: Chronic Comment: Nonobstructive CAD per cath 10/05/[address] Arana and 08/20/15 @ [facility] per Dr. Cates (3) Dilated aortic root Status: Chronic (4) History of left heart catheterization Status: Chronic Comment: Nonobstructive CAD per cath 10/05/[address] Arana and 08/20/15 @ [facility] per Dr. Cates (5) History of pulmonary embolism Status: Chronic (6) History of radiofrequency ablation procedure for cardiac arrhythmia Status: Chronic (7) Hyperlipidemia Status: Chronic (8) Hypertension Status: Chronic (9) intermediate current use of anticoagulant Status: Chronic (10) Paroxysmal atrial fibrillation Status: Chronic (11) Paroxysmal atrial tachycardia Status: Chronic Past Medical History - Allergies and Home Meds Allergies/Adverse Reactions: Allergies pravastatin Adverse Reaction (Intermediate, Verified 09/12/19 23:22) Myalgias simvastatin [From Zocor] Adverse Reaction (Intermediate, Verified 09/12/19 23:22) Myalgias statins Adverse Reaction (Uncoded 09/12/19 23:23) Other muscle pain Primary Care Physician: Malini Downs MD [Primary Care Provider] - Doctors: Dr. Cates Prior records reviewed: Yes Lives: Spouse/ Significant Other Smoking Status: Former smoker Review of Systems General: Denies: Chills, Fever Eyes: Denies: Visual changes - bilaterally ENT: Denies: Bilateral ear pain Cardiovascular: Reports: Palpitations, Heart racing. Denies: Chest pain Respiratory: Reports: Dyspnea. Denies: Cough Gastrointestinal: Denies: Abdominal pain, Nausea, Vomiting, Diarrhea Genitourinary: Denies: Dysuria Skin: Denies: Rash Neurological: Denies: Headache Allergy: Denies: Uticaria Physical Exam Vital Signs/Narrative: Vital Signs Temp Pulse Resp BP Pulse Ox 09/13/19 01:28 93 18 112/85 H 93 09/13/19 00:48 123 H 18 117/80 92 09/13/19 00:15 118 H 16 117/80 94 09/12/19 23:15 98.1 F 120 H 20 H 117/91 H 93 Inital Vital Signs reviewed: Yes General: Well nourished, Well developed Head: Normocephalic ENT: Moist mucous membranes Neck: Supple Cardiovascular: Irregular, Tachycardia Respiratory: No distress, CTA bilaterally Abdomen: Soft, Nontender Extremities: Nontender Skin: Normal color, No rash Neurological: Alert, Oriented x3 Diagnostic/Tx/Re-eval Impressions Chest X-Ray 09/13/19 00:00 IMPRESSION: Ill-defined groundglass opacities are seen in the right and left lung bases may represent pulmonary edema or bilateral pneumonia. Further evaluation by CT scan can be helpful. There is a small left pleural effusion. Electronically Signed: Giraldo Carmelina, at 1:50 EST Tel , Service support , 09/13/19 00:00 Chest 1 View (Portable) [RAD] Stat Laboratory Results 09/12/19 09/12/19 09/12/19 23:21 23:21 23:21 WBC 10.8 RBC 3.59 L Hgb 10.7 L Hct 33.3 L MCV 92.8 MCH 29.8 MCHC 32.1 RDW Std Deviation 50.8 H RDW Coeff of Madelin 15.1 H Plt Count 496 H MPV 10.3 Immature Gran % (Auto) 1.000 H Neut % (Auto) 72.0 H Lymph % (Auto) 11.8 L [place] % (Auto) 10.2 H Eos % (Auto) 4.4 Baso % (Auto) 0.6 Absolute Neuts (auto) 7.8 H Absolute Lymphs (auto) 1.28 Nucleated RBC % 0 PT 24.9 H INR 2.3 Sodium Potassium Chloride Carbon Dioxide Anion Gap BUN Creatinine Estim Creat Clear Calc Est GFR (MDRD) Af Amer Est GFR (MDRD) Non-Af BUN/Creatinine Ratio Glucose Calcium Troponin I 0.125 H 09/12/19 23:21 WBC RBC Hgb Hct MCV MCH MCHC RDW Std Deviation RDW Coeff of Madelin Plt Count MPV Immature Gran % (Auto) Neut % (Auto) Lymph % (Auto) [place] % (Auto) Eos % (Auto) Baso % (Auto) Absolute Neuts (auto) Absolute Lymphs (auto) Nucleated RBC % PT INR Sodium 137 Potassium 4.4 Chloride 107 Carbon Dioxide 23.0 Anion Gap 7 BUN 13 Creatinine 1.52 H Estim Creat Clear Calc 53.93 Est GFR (MDRD) Af Amer 58 L Est GFR (MDRD) Non-Af 48 L BUN/Creatinine Ratio 8.6 L Glucose 103 Calcium 8.9 Troponin I - EKG Initial EKG Interpretation: Atrial Fibrillation - A. fib at 119. Lateral and inferior T inversions. - Medical Decision Making Patient was initially given 10 mg of IV Cardizem which did not change his heart rate much. His blood pressure tolerated this well. He was then given 20 mg of Cardizem and heart rate has been in the 80s and low 90s. He remains in atrial fibrillation. Patient's labs are reviewed with him. Troponin is mildly elevated, but this is not to be unexpected considering he just had open heart surgery less than 2 weeks ago. He has had no chest pain. I spoke with Dr. Hawkins, covering for Dr. Cates. Patient will continue the amiodarone taper as previously instructed. He is to double his metoprolol from 50 mg XL tabs twice a day to 100 mg twice a day. Patient is to call the office with any changes or concerns. If he feels palpitations again he is to come back to the emergency room. ED Disposition - Plan for ED Patient: Disposition: Home or Assisted Living Diagnosis: Atrial fibrillation with RVR Instructions: Atrial Fibrillation Referrals: Malini Downs MD [Primary Care Provider] - Matt Cates MD [STAFF PHYSICIAN] - 1 Week
[2019-09-13 02:31] VITALS: BP 116/78; PULSE 90; RESP 15; O2SAT 98
== END 2019-09-13 02:32 | disposition home or self-care (01) ==
PROVIDERS: Emergency Provider Emergency Medicine; PCP Internal Medicine
DX: I48.0 Paroxysmal atrial fibrillation (principal); I25.10 Atherosclerotic heart disease of native coronary artery without angina pectoris; I10 Essential (primary) hypertension; E78.5 Hyperlipidemia, unspecified; Z86.711 Personal history of pulmonary embolism; Z79.01 Long term (current) use of anticoagulants; Z79.899 Other long term (current) drug therapy; Z87.891 Personal history of nicotine dependence
CPT/HCPCS: 71045; 80048; 84484; 85025; 85610; 93005; 96374; 96376; 99285; J7030; A4216

== ENCOUNTER 2019-09-13 20:24 | Emergency (ER) | payer MEDICARE, SELFPAY ==
[2019-09-12 23:15] VITALS: BMI 38.7
[2019-09-13 20:25] VITALS: BP 115/84; PULSE 90; RESP 18; TEMP 36.7; O2SAT 97; BMI 37.1
--- NOTE | 2019-09-13 20:57 | CT_ITS ---
HISTORY: PT STATED DIZZINESS, OPEN HEART SURGERY X 13 DAYS AGO Technique:CT Head or Brain W/O Contrast Injection Number of Images including paperwork:265 Comparison: None available. Findings: CT images of the head were obtained without contrast. Periventricular deep and subcortical white matter disease is present. Paranasal sinuses are clear. The brain is atrophic. Calcific ASCVD involves intracranial arteries. No acute intracranial edema or hemorrhage. No acute abnormality of orbits. Middle ear cavities and mastoid air cells are well aerated. Skull is normal. CT/Brain/Head without Contrast IMPRESSION: No acute intracranial abnormality. Chronic changes as above. ASPECT 10. Individualized dose optimization techniques were used for this CT. at 2133 Reported and signed by: Bebeto Tomas MD Electronically Signed: Bebeto Tomas MD at 21:32 EST Tel , Service support ,
--- NOTE | 2019-09-13 20:58 | ED.VIS.GEN ---
History of Present Illness Chief Complaint: Dizziness Informant: Patient, Family, Field Support Representative Onset: Hours - 1 Context: Sudden Onset Timing: Continuous Quality: Movement Location: Head Current Severity: gone Maximum Severity: Severe Worsened by: changing position Relieved by: closing eyes and remaining still Associated Symptoms: Nausea Narrative: Patient was at home walking down the hallway when he noticed suddenly that he felt very dizzy like he was going to fall. He was near a door and grabbed onto the wall to prevent this from happening. He felt nauseated. Family immediately called EMS. Patient states he had vertigo before and this felt similar. He has never had a stroke. He was here yesterday for being in A. fib and had metoprolol added to his medication regimen which also includes an amiodarone taper. Prior to this starting, all day today, he had been feeling fairly well. No more palpitations although he still appears to be in A. fib. He recently had a thoracic aortic aneurysm repair at [facility]. - Past Medical History (1) Vertigo Status: Suspected (2) Ascending aortic aneurysm Status: Chronic (3) Atherosclerotic heart disease of [place] coronary artery without angina pectoris Status: Chronic Comment: Nonobstructive CAD per cath 10/05/[address] Arana and 08/20/15 @ [facility] per Dr. Cates (4) Hyperlipidemia Status: Chronic (5) Hypertension Status: Chronic (6) skilled nursing current use of anticoagulant Status: Chronic (7) Paroxysmal atrial fibrillation Status: Chronic (8) Paroxysmal atrial tachycardia Status: Chronic Past Medical History - Allergies and Home Meds Allergies/Adverse Reactions: Allergies pravastatin Adverse Reaction (Intermediate, Verified 09/13/19 20:28) Myalgias simvastatin [From Zocor] Adverse Reaction (Intermediate, Verified 09/13/19 20:28) Myalgias statins Adverse Reaction (Uncoded 09/13/19 20:28) Other muscle pain Primary Care Physician: Malini Downs MD [Primary Care Provider] - Surgical History: - - TAA repair Lives: With Family Smoking Status: Former smoker Review of Systems General: Denies: Chills, Fever, Sweats Eyes: Denies: Visual changes - bilaterally, Diplopia ENT: Reports: - - No hearing abnormalities/changes. Denies: Bilateral ear pain, Rhinorrhea, Sore throat Cardiovascular: Reports: Chest pain - Postoperative incisional. Denies: Palpitations Respiratory: Denies: Dyspnea, Cough, Dyspnea on exertion Gastrointestinal: Reports: Nausea. Denies: Abdominal pain, Vomiting, Diarrhea, Melena, Hematochezia Genitourinary: Denies: Dysuria, Hematuria, Frequency Musculoskeletal: Denies: Neck pain, Back pain, Swelling, Extremity Pain Skin: Reports: Wounds - Surgical, chest. Denies: Rash Neurological: Reports: - - Vertigo. Denies: Headache, Weakness, Numbness Physical Exam Vital Signs/Narrative: Vital Signs Temp Pulse Resp BP Pulse Ox 09/13/19 20:25 98.0 F 90 18 115/84 H 97 General: Well nourished, Well developed, No Acute Distress Head: Normocephalic, Atraumatic Eyes: Perrl, EOMI, - - No horizontal, vertical, or rotatory abnormal nystagmus ENT: Moist mucous membranes, No rhinorrhea, TM's clear Neck: Supple, Nontender, No lymphadenopathy Cardiovascular: Regular rate, Regular rhythm, No murmurs Respiratory: No distress, CTA bilaterally, Chest tenderness - mildly at well-healing midline surgical incision Abdomen: Soft, Nontender, Nondistended, Normal bowel sounds Back: Nontender, Normal Inspection Extremities: Nontender, No edema. Negative for: Calf Tenderness Skin: Normal color, No rash, No Trauma Neurological: Alert, Oriented x3, Cranial nerves II-XII grossly intact, Normal Strength, Normal Sensation, - - Normal kfffpi-bq-urns and [id number]-cx-fbtr bilaterally. Positive Broad Top-Hallpike to the left, no symptoms to the right. Psychological: Normal affect, Normal Mood Diagnostic/Tx/Re-eval Clinical Impression(s) from Imaging Studies Brain CT 09/13/19 20:57 IMPRESSION: No acute intracranial abnormality. Chronic changes as above. ASPECT 10. Individualized dose optimization techniques were used for this CT. at 2133 Reported and signed by: Bebeto Tomas MD Electronically Signed: Bebeto Tomas MD at 21:32 EST Tel , Service support , - Medical Decision Making CT head was negative for nothing acute. His INR was 2.4 yesterday, no need to repeat that today. Same with his other blood work which was unremarkable yesterday. He was treated with meclizine and Zofran. He feels much better on reevaluation. I got him out of bed, he walked to and from the bathroom, got back into bed and was asymptomatic. I reassured him and family, I think this is peripheral vertigo likely involving the left ear especially given his Britton-Hallpike maneuver. Refer to ENT if his symptoms last 5 to 7 days without resolving, and prescribed meclizine to use as needed. They are comfortable with that plan, all questions answered at the bedside. ED Disposition - Plan for ED Patient: Disposition: Home or Assisted Living Diagnosis: Peripheral vertigo involving left ear, Paroxysmal atrial fibrillation Instructions: VERTIGO, Unspecified Prescriptions: Meclizine HCl [Antivert] 25 mg PO TID PRN PRN #16 tab PRN Reason: Dizziness Transmission Status: Pending to [facility] Referrals: Jacky Andino MD [STAFF PHYSICIAN] -
[2019-09-13] MEDS: Meclizine HCl 25 MG Tablet PO (21:07)
[2019-09-13] MEDS: Ondansetron ODT 4 MG Tablet 8 MG PO (21:07)
[2019-09-13 21:39] VITALS: BP 119/80; PULSE 95; RESP 18; O2SAT 95
[2019-09-13 23:17] VITALS: BP 122/80; PULSE 98; RESP 16; O2SAT 95
== END 2019-09-13 23:23 | disposition home or self-care (01) ==
PROVIDERS: Emergency Provider Emergency Medicine; PCP Internal Medicine
DX: H81.392 Other peripheral vertigo, left ear (principal); I48.0 Paroxysmal atrial fibrillation; I25.10 Atherosclerotic heart disease of native coronary artery without angina pectoris; E78.5 Hyperlipidemia, unspecified; I10 Essential (primary) hypertension; Z79.01 Long term (current) use of anticoagulants; Z87.891 Personal history of nicotine dependence
CPT/HCPCS: 70450; 99285; A4216

== ENCOUNTER → 2019-10-03 | Day surgery (SDC) | payer MEDICARE, SELFPAY ==
[2019-09-14 10:01] VITALS: BMI 37.7
[2019-10-02 08:21] VITALS: BMI 37.7
--- NOTE | 2019-10-03 10:05 | HP.PCM_ITS ---
History and Physical Date of Admission: 10/03/19 It was a pleasure seeing your patient, Nitin Everett, today in our office. As you know, he is a very pleasant 74-year-old morbidly obese gentleman, who is returning for followup of his paroxysmal atrial tachycardia and paroxysmal atrial fibrillation. he is status post DC cardioversion in 1999, with history of concealed accessory pathway status post ablation. Since his last visit, Mr. Everett has had no chest, neck, jaw, or arm discomfort to suggest angina, increase in shortness of breath or dyspnea on exertion, paroxysmal nocturnal dyspnea, orthopnea, or pedal edema. He denies palpitations, near syncope, or syncope and states his pulse has been regular on daily checks. due to his knees, He has failed other statins due to myalgia, and currently is on ezetimibe. on further history, he had a catheterization done in September 2006 which demonstrated mild nonobstructive disease of his LAD and left circumflex, and his last echocardiogram was 11/03/11 which demonstrated an EF of 60%. His last stress test was In April 2013 which was negative, and prior to that his previous stress test on 11/03/11 was negative for inducible ischemia. Patient underwent treadmill/echocardiogram 07/30/15 which was abnormal for ischemia by EKG criteria however there were no evidence of wall motion abn ormalities. In order to ensure proper usage of flecainide therapy, I recommended he undergo a repeat left heart catheterization to evaluate for possible coronary disease which may cause us to change him to a different antiarrhythmic. This was performed which showed minimal nonobstructive coronary disease but a significant tortuosity of his aortoiliac system requiring extended length catheters. LV function was normal and flecainide was continued. Surveillance stress echocardiogram dated 03/02/2018 was negative for inducible ischemia. Surveillance stress echocardiogram dated 05/02/2019 was also negative for inducible ischemia. His most recent echocardiogram dated 03/01/2018 showed the following: Mild concentric left ventricular hypertrophy. The estimated ejection fraction is 65 %. Stage 2 diastolic dysfunction. Right ventricular systolic pressure estimated to be 36 mmHg. Trivial aortic valve insufficiency. Compared to echo report dated 07/28/2015, no appreciable changes noted. Aortic root is about the same at 4.6 cm. Pt appears to be in NSR. His most recent echocardiogram dated 04/20/2019 is as follows: The estimated ejection fraction is 65 %. Normal diastology for age. The left atrium is mildly enlarged. The right atrium is mildly enlarged. Trivial tricuspid valve insufficiency. Right ventricular systolic pressure estimated to be 26 mmHg. Mild focal aortic valve thickening on non coronary cusp. Trivial aortic valve insufficiency. The ascending aorta is moderate-severely dilated. Compared to echo report dated 03/01/2018, ascending aortic root dilation has increased from 4.6 to 5.2 cm. This may be overestimated given angle of measurement. Recommend repeat CTA of aorta to further evaluate. Repeat CTA dated 04/30/2019 is as follows: IMPRESSION: 1. 5 cm ascending aortic aneurysm, unchanged since July 2015. Patient was referred to the [facility] for evaluation of aortic root repair. He underwent a repeat left heart catheterization at the [facility] on 08/29/2019 which showed nonobstructive coronary disease. He then underwent aortic aneurysm revision on 08/31/2019 with associated pulmonary vein isolation, clipping of left atrial appendage, and replacement of his ascending aortic root with a 30 mm straight graft. Postoperatively the patient developed atrial fibrillation which was treated with increasing his Toprol auto 100 twice daily, amiodarone loading, and DC cardioversion which was initially successful. Routine postop testing including a CTA showed a segmental and subsegmental pulmonary embolus in the right upper lobe of the pulmonary artery. For this he was restarted on Coumadin therapy and sent home. Subsequent to that the patient has visited the emergency room at [facility] for various reasons most recent of which was 09/13/2019 for rapid atrial fibrillation and symptomatic palpitations. Patient was subsequently sent home for follow-up today. He denies any chest pain, angina, but does complain of fatigue, shortness of breath and overall weakness. He is compliant with his medications. He was given 10 mg of IV Cardizem followed by 20 mg of IV Cardizem which reduced his heart rate and subsequently discharged home. His amiodarone is reducing down to 200 today starting today. In our office today his blood pressure is 100/66 sitting, and 80/60 standing and pulse is 100 and irregular. And regular. His physical exam is as below. His lipids a as of 02/18/16 showed HDL of 52 and LDL of 72. This is well he was on Zetia. repeat lipids dated 09/02/16 showed an LDL of 72 and HDL of 60. Repeat lipids as of 12/27/17 show an LDL of 89 and HDL of 51. Repeat lipids are pending. EKG previously demonstrated sinus bradycardia, QT corrected of 41 ms No previous TX noted. EKG dated 09/14/2019 shows atrial fibrillation with rapid ventricular response of 100, QT corrected of 398 ms, inferior T wave inversion. Intake Vital Signs: See EMR [facility]: No Accompanied by: Is patient in pain?: No Allergies pravastatin Adverse Reaction (Intermediate, Verified 09/14/19 10:24) Myalgias simvastatin [From Zocor] Adverse Reaction (Intermediate, Verified 09/14/19 10:24) Myalgias statins Adverse Reaction (Uncoded 09/13/19 20:28) Other Medications See EMR [facility] Medical History Dilated aortic root (Chronic) Hyperlipidemia (Chronic) Hypertension (Chronic) Atherosclerotic heart disease of [place] coronary artery without angina pectoris (Chronic) History of pulmonary embolism (Chronic) Paroxysmal atrial tachycardia (Chronic) nursing home current use of anticoagulant (Chronic) Paroxysmal atrial fibrillation (Chronic) Ascending aortic aneurysm (Chronic) Surgical History History of ascending aortic replacement (Chronic 08/31/19) History of left heart catheterization (Chronic) History of radiofrequency ablation procedure for cardiac arrhythmia (Chronic ~03/2000) H/O umbilical hernia repair (Chronic) History of appendectomy (Chronic) History of tonsillectomy (Chronic) History of left knee replacement (Resolved) Family History Father CAD (coronary artery disease) Mother Arrhythmia Social History (Updated 09/14/19 @ 10:[address] Matt Cates MD) Smoking Status: Former smoker pack-years: 5 ROS Const Const: Positive for fatigue (very fatigued), weakness and other ( TAA repair 08/31/18 Dr. Powell: ER last 2 nights, Afib RVR, orthostatic.); negative for body ache, fever(s), headache(s), chills, frequent falls, night sw eats, daytime sleepiness, difficulty sleeping, excessive sweating, weight gain, weight loss, increased appetite, poor appetite or anorexia Eyes Eyes: Negative for blind spots, loss of peripheral vision, transient loss of vision, blurry vision, change in vision, double vision, floaters, tunnel vision or other ENT ENT: Positive for dizziness and balance problems (walks with a cane); negative for headache(s), hearing loss, tinnitus, Nosebleed/epistaxis, post nasal drip, lip swelling, tongue swelling, bleeding gums, hoarseness, neck pain, dry mouth or other Cardio Chest Pain: No Palpitations: Yes (Can feel it but not as bad as 2 nights ago) Resp Respiratory: Positive for SOB with activity (hgb 10.7 yesterday); negative for SOB at rest, SOB orthopnea\SOB lying down, Cough, Coughing up blood/hemoptysis, chest congestion, pain on inspiration, snoring, stridor, wheezing, crackles, paroxysmal nocturnal dyspnea or other GI GI: Negative nausea, vomiting, heartburn, constipation, belching, bloating, cramping, vomiting blood/hematemesis, bright, red blood in stools, black,tarry stools, loose stools, Difficulty Swallowing or other : Negative for hematuria, frequent nighttime urination/ nocturia, erectile dysfunction or abnormal vaginal bleeding Musc Musc: Positive for balance problems (walks with a cane); negative for muscle aches/ myalgia, muscle weakness or joint pain Skin Skin: Negative redness, non-healing lesions, rash, unusual bruising, skin ulcer, wounds, jaundice or other Neuro Neuro: Positive for dizziness, lightheadedness, orthostatic symptoms and weakness; negative for near syncope, syncope, frequent falls, headache(s), confusion, memory loss, restless legs, blurry vision, double vision, vertigo, seizures, lack of coordination or other Gee Hematologic/Lymphatic: Negative for easy bleeding, easy bruising, enlarged lymph nodes or other Endo Endo: Positive for fatigue (very fatigued); negative for cold intolerance, heat intolerance, excessive sweating, flushing, increased thirst/drinking, increased hunger, hair loss, hair growth or other Psych Psych: Negative for anxiety, depression, thoughts of harming anyone, thoughts of harming yourself, visual hallucinations, panic attacks or audible hallucinations Allergy Allergy/Immunology: Negative for throat swelling, Negative for tongue swelling, Negative for hives, Negative for rash, Negative for lip swelling Cardiology Exam Const Appearance: cooperative, healthy appearing and no acute distress Nutritional Appearance: well nourished Orientation: alert, oriented x3 and oriented to person Head Head: normal to inspection, normocephalic and atraumatic Nose: external nose normal Face and Sinus: face symmetric Mouth: oral mucosae normal Eyes General: appearance normal, both eyes and all related structures Eyelids: eyelids normal Conjunctivae: conjunctivae normal Pupils: PERRL and normal by confrontation EOM: EOM intact bilaterally Neck Neck: normal visual inspection and full ROM Carotids: normal carotid upstroke Chest Chest inspection: normal inspection of the chest Auscultation: Bilateral: Clear to Auscultation Cardio Palpation: normal PMI Rate: regular rate Rhythm: regular rhythm Heart sounds: S1 normal and S2 normal GI GI: normal to inspection, no hepatosplenomegaly and bowel sounds present Neuro General: alert, awake, oriented x3, CN's II-XI intact bilaterally and moves all extremities Skin Skin: no rashes or lesions noted Extremities Pulses: Normal: Right Femoral Pulse, Left Femoral Pulse, Right Dorsalis Pedis Pulse, Left Dorsalis Pedis Pulse, Right Posterior Tibial Pulse, Left Posterior Tibial Pulse, Right Radial Pulse, Left Radial Pulse Lower Extremity Edema: None: Bilateral Psych Psychological: normal affect Assessment & Plan 1. History of ascending aortic replacement Z95.[address] Cleveland Reyes @ [facility] [place]: Ascending aorta replacement and pulmonary vein isolation + clipping of left atrial appendage iwth 45 mm Atricure clip. Plan 1. History of a sending aortic root replacement: Patient underwent successful aortic root replacement with pulmonary vein isolation and left atrial appendage clipping on 08/31/2019 at the [facility]. He was found to have a subsequent subsegmental pulmonary embolism and was restarted on amiodarone for both pulmonary embolism and recurrent atrial fibrillation. He was initially cardioverted which was successful but now has reverted back to atrial fibrillation. I recommended the patient continue his metoprolol but reduce it down to 100 mg p.o. daily and proceed with DCCV. 2. Pure hypercholesterolemia E78.00 Plan 2. Hyperlipidemia: His LDL and HDL cholesterol are fairly well controlled. Repeat lipids are pending. Continue ezetimibe. 3. Paroxysmal atrial tachycardia I47.1 Plan 3. Atrial fibrillation: The patient has recurrent atrial fibrillation despite DC cardioversion and amiodarone. He was previously on flecainide but this was discontinued when he had his operation. He has been on a loading dose of ami odarone and is going to reduce it today to 200 mg p.o. daily. I recommend he continue his amiodarone to 20 mg a day, continue Coumadin, and he is already scheduled for an elective DC cardioversion on 09/17/2019. I will reduce down his metoprolol to 50mg bid, and start him on Cardizem CD 120 mg p.o. daily for heart rate control. His hemoglobin is stable at 10. DCCV as planned. In the meantime I encouraged the patient to push fluids in order to maintain his heart rate and blood pressure, which should hopefully improve with reduction of his beta-forest. He will return in 2 weeks time for a blood pressure check.
[2019-10-03 13:11] LABS: Prothrombin Time Fingerstick 19.5 SEC (11.9-14.4)
== END | disposition home or self-care (01) ==
PROVIDERS: PCP Internal Medicine; Referring Provider Internal Medicine Cardiovascular Disease; Visit Provider Internal Medicine Cardiovascular Disease
DX: I48.0 Paroxysmal atrial fibrillation (principal); I47.1 Supraventricular tachycardia; E66.01 Morbid (severe) obesity due to excess calories; E78.5 Hyperlipidemia, unspecified; I10 Essential (primary) hypertension; I25.10 Atherosclerotic heart disease of native coronary artery without angina pectoris; Z86.711 Personal history of pulmonary embolism; Z87.891 Personal history of nicotine dependence; Z95.828 Presence of other vascular implants and grafts
CPT/HCPCS: 36416; 85610

== ENCOUNTER → 2019-11-29 | Outpatient (CLI) | payer MEDICARE, SELFPAY ==
[2019-11-29 11:26] VITALS: BMI 38.8
[2019-11-29 12:51] LABS: International Normalized Ratio 2.7; Prothrombin Time (Protime)PT. 28.6 SECONDS (11.7-14.9)
[2019-11-29 13:15] LABS: Anion Gap 3 (5-15); BUN 22 mg/dL (7-18); BUN/Creat Ratio 16.8 RATIO (10-20); Calcium,Total 9.1 mg/dL (8.5-10.1); Chloride 107 mmol/L (98-107); Creatinine, Serum 1.31 mg/dL (0.70-1.30); EST Glomerular Filtration Rate 57 mL/min (>60); Est Glom Filt Rate - Afr Amer 69 mL/min (>60); Glucose 82 mg/dL (74-106); Potassium 4.3 mmol/L (3.5-5.1); Sodium Level 139 mmol/L (136-145)
== END | disposition home or self-care (01) ==
LOC: LAB 12:00
PROVIDERS: PCP Internal Medicine; Referring Provider Internal Medicine Cardiovascular Disease; Visit Provider Internal Medicine Cardiovascular Disease
DX: I47.1 Supraventricular tachycardia (principal); I48.0 Paroxysmal atrial fibrillation; Z79.01 Long term (current) use of anticoagulants
CPT/HCPCS: 36415; 80048; 85610

== ENCOUNTER 2019-12-05 09:54 | Day surgery (SDC) | payer MEDICARE, SELFPAY ==
[2019-10-02 08:21] VITALS: BMI 37.7
[2019-11-29 11:26] VITALS: BMI 38.8
[2019-12-04 10:37] VITALS: BMI 38.8
[2019-12-05 10:01] LABS: Prothrombin Time Fingerstick 24.8 SEC (11.9-14.4)
--- NOTE | 2019-12-05 12:47 | CARDIOVERS ---
Cardioversion Cardioversion: DC cardioversion: The patient was brought to the cardiac Project Product Manager holding area in the fasting state. EKG documented atrial fibrillation with controlled ventricular response. The patient has been on both amiodarone and Coumadin therapy since his aortic root repair surgery. He has been tolerating this well, and his INR is therapeutic. The risk/benefits of the procedure were thoroughly explained to the patient and informed consent was obtained. The patient was placed in the supine position, and the defibrillator pads were placed in the AP position. With the assistance of Dr. Kael Gastelum he was given a total of 60 mg of IV propofol at which time adequate sedation was obtained. Patient received a single biphasic synchronized 200 J shock which converted him from atrial fibrillation to normal sinus rhythm/sinus bradycardia which remained durable. The patient spontaneously awoke, move all 4 extremities and tolerate procedure well. Conclusions: Successful amiodarone and Coumadin assisted DC cardioversion with a single biphasic 200 J shock converting him from atrial fibrillation to normal sinus rhythm. Patient tolerated well. No complications. Recommendations: We will continue the patient on amiodarone, Coumadin, and other antihypertensive medications. He will receive a EKG in 1 week's time and if he still in sinus rhythm, he will be referred to cardiac rehab going forward. Many thanks to Dr. Kael Gastelum.
--- NOTE | 2019-12-05 14:23 | PRO.PCM_ITS ---
Problem List (1) History of cardioversion Status: Chronic (2) Persistent atrial fibrillation Status: Acute (3) Ascending aortic aneurysm Status: Chronic (4) Dilated aortic root Status: Chronic (5) History of left heart catheterization Status: Chronic Comment: Nonobstructive CAD per cath 10/05/[address] Arana and 08/20/15 @ [facility] per Dr. 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 for an elective outpatient cardioversion due to underlying atrial fibrillation. The patient reports no PO intake since midnight. The patient does not have a history of obstructive sleep apnea. The patient reports no history of smoking or COPD. The patient denies any recent constitutional symptoms such as fevers, chills, nausea or vomiting. The patient denies previous anesthetic complications. PHYSICAL EXAMINATION: VITAL SIGNS: Reviewed and were acceptable. GENERAL: The patient is a male, in no apparent distress, speaking in full sentences. HEENT: Normocephalic, atraumatic. Mucous membranes are moist and pink. Good m outh opening noted. Trachea is midline. Good neck mobility. MP II CHEST: S1, S2 irregularly irregular. No murmurs, rubs or gallops were noted. LUNGS: Clear to auscultation bilaterally without appreciable wheezes, rales or rhonchi. ABDOMEN: Soft, nontender, nondistended. Positive bowel sounds. EXTREMITIES: There is no clubbing, cyanosis or edema. ASA Class: II DESCRIPTION OF PROCEDURE: After confirmation of informed consent, the patient's anesthesia plan was reviewed in detail. Propofol was chosen. Risks and benefits were reviewed and the patient agreed to proceed. At 12:06 PM, the patient was given 40 mg of propofol. The patient required a total of 60 mg of propofol throughout the procedure to achieve appropriate sedation. The patient achieved an appropriate level of sedation and received 1 attempt synchronized cardioversion, at [address] Cates at the bedside. This was successful in achieving normal sinus rhythm. The patient was monitored until 12:17 PM, at which time the patient reached their baseline mental status and function. The patient tolerated the procedure well. COMPLICATIONS: None ESTIMATED BLOOD LOSS: None RECOMMENDATIONS: Okay to recover in usual fashion. [id number]: Other Procedure See Report - [id number] - 11 min
== END 2019-12-05 13:20 | disposition home or self-care (01) ==
LOC: CLSP 09:55
PROVIDERS: PCP Internal Medicine; Referring Provider Internal Medicine Cardiovascular Disease; Visit Provider Internal Medicine Cardiovascular Disease
DX: I48.19 Other persistent atrial fibrillation (principal); I47.1 Supraventricular tachycardia; I71.2 Thoracic aortic aneurysm, without rupture; I25.10 Atherosclerotic heart disease of native coronary artery without angina pectoris; E78.5 Hyperlipidemia, unspecified; I10 Essential (primary) hypertension; Z86.711 Personal history of pulmonary embolism; Z79.01 Long term (current) use of anticoagulants; Z79.82 Long term (current) use of aspirin; Z79.899 Other long term (current) drug therapy; Z87.891 Personal history of nicotine dependence
CPT/HCPCS: 36416; 85610; 92960; 93005; J7040

== ENCOUNTER → 2020-05-15 | Outpatient (CLI) | payer MEDICARE, SELFPAY ==
[2019-12-12 10:44] VITALS: BMI 38.8
--- NOTE | 2020-05-15 12:45 | CDU_ITS ---
Reason For Study: transient visual loss Rt. Velocities/BP Lt. Velocities/BP Prox CCA 102.1/14.7 cm/sec. Prox CCA 87.2/12.4 cm/sec. Mid CCA 103.4/17.3 cm/sec. Mid CCA 88.3/19.0 cm/sec. Dist CCA 76.0/13.4 cm/sec. Dist CCA 60.8/16.8 cm/sec. Prox ICA 66.3/11.3 cm/sec. Prox ICA 48.7/12.4 cm/sec. Mid ICA 87.2/24.5 cm/sec. Mid ICA 80.6/16.8 cm/sec. Dist ICA 70.7/20.1 cm/sec. Dist ICA 61.9/13.5 cm/sec. Rt. ICA/CCA = .8. Lt. ICA/CCA = .9. Prox ECA 64.1/8.0 cm/sec. Prox ECA 74.0/12.4 cm/sec. Rt. Vert. 74.0/17.9 cm/sec. Lt. Vert. 63.0/13.5 cm/sec. Right Extracranial There is intimal thickening but no significant atherosclerotic plaque noted in the right common carotid artery. There is intimal thickening but no significant atherosclerotic plaque noted in the right internal carotid artery. There is intimal thickening but no significant atherosclerotic plaque noted in the right external carotid artery. Antegrade flow is noted in the right vertebral artery. Left Extracranial There is intimal thickening but no significant atherosclerotic plaque noted in the left common carotid artery. There is intimal thickening but no significant atherosclerotic plaque noted in the left internal carotid artery. There is intimal thickening but no significant atherosclerotic plaque noted in the left external carotid artery. Antegrade flow is noted in the left vertebral artery. Procedure Carotid Duplex [id number]. This is a Carotid Duplex examination using B-mode, color flow and specral Doppler. The exam was diagnostic. Exam performed in department. Interpretation Summary No significant atherosclerotic plaque or stenosis noted in the internal carotid arteries bilaterally. Flow within the vertebral arteries is antegrade bilaterally. Ordering Physician: Amador Loja Performed By: Jay Rincon RVT
== END | disposition home or self-care (01) ==
LOC: CVS 12:44
PROVIDERS: PCP Internal Medicine; Referring Provider Ophthalmology; Visit Provider Ophthalmology
DX: H53.123 Transient visual loss, bilateral (principal)
CPT/HCPCS: 93880

== ENCOUNTER → 2020-06-27 | Outpatient (CLI) | payer MEDICARE, SELFPAY ==
[2020-06-27 09:54] VITALS: BMI 40.1
[2020-06-27 11:07] LABS: Absolute Lymphocyte Count 1.22 X10^3/uL (0.83-4.51); Absolute Neutrophil Count 3.2 X10^3/uL (2.0-7.7); Basophil# 0.07 X10^3/uL; Basophil% 1.3 % (0-1); Eosinophil# 0.32 X10^3/uL; Hematocrit 43.4 % (40-54); Hemoglobin 13.3 g/dL (13.0-16.5); Lymphocyte # 1.22 X10^3/ul (4.0); Lymphocyte % 22.8 % (19-41); Mean Corp Hgb Conc 30.6 g/dL (32-36); Mean Corpuscular Hgb 28.1 pg (27.0-32.0); Mean Corpuscular Volume 91.6 fL (80-94); Monocyte# 0.58 X10^3/uL; Monocyte% 10.8 % (0-10); NRBC Flagged by Analyzer 0 % (0-5); Neutrophil # 3.15 X10^3/uL (2.7-7.7); Neutrophil % 58.7 % (47-70); Platelet Count 221 K/mm3 (150-450); RBC Distribution Width CV 15.9 % (11.6-14.6); RBC Distribution Width SD 54.3 fl (35.1-43.9); Red Blood Count 4.74 M/mm3 (4.6-6.2); White Blood Count 5.4 K/mm3 (4.4-11.0)
[2020-06-27 11:31] LABS: AST(SGOT) 17 U/L (15-37); Alanine Aminotransfer ALT/SGPT 25 U/L (16-61); Albumin, Serum 3.5 g/dL (3.2-5.0); Alkaline Phosphatase 54 U/L (45-117); Bilirubin, Direct 0.33 mg/dL (0.00-0.30); Globulin 4.1 g/dL (2.2-4.2); Protein, Total 7.6 g/dL (6.4-8.2); T4 Free Direct 1.06 ng/dL (0.76-1.46); Thyroid Stim Hormone (TSH) 5.51 uIU/mL (0.358-3.74)
== END | disposition home or self-care (01) ==
LOC: LAB 10:38
PROVIDERS: PCP Internal Medicine; Referring Provider Nurse Practitioner Family; Visit Provider Nurse Practitioner Family
DX: I48.19 Other persistent atrial fibrillation (principal); I48.0 Paroxysmal atrial fibrillation; E78.5 Hyperlipidemia, unspecified; D64.9 Anemia, unspecified; Z79.899 Other long term (current) drug therapy
CPT/HCPCS: 36415; 80076; 84439; 84443; 85025

== ENCOUNTER → 2020-11-12 10:18 | Outpatient (CLI) | payer MEDICARE, SELFPAY ==
[2020-06-27 09:54] VITALS: BMI 40.1
== END ==
PROVIDERS: PCP Internal Medicine; Referring Provider Physician Assistant Medical; Visit Provider Physician Assistant Medical
DX: I47.1 Supraventricular tachycardia (principal); I48.0 Paroxysmal atrial fibrillation; I48.19 Other persistent atrial fibrillation; R00.1 Bradycardia, unspecified
CPT/HCPCS: 93225; 93226

== ENCOUNTER → 2021-05-20 11:12 | Outpatient (CLI) | payer MEDICARE, SELFPAY ==
[2021-05-20 12:45] LABS: AST(SGOT) 18 U/L (15-37); Alanine Aminotransfer ALT/SGPT 22 U/L (16-61); Albumin, Serum 3.4 g/dL (3.2-5.0); Alkaline Phosphatase 48 U/L (45-117); Cholesterol 140 mg/dL (200); Globulin 4.4 g/dL (2.2-4.2); High Density Lipoprotein 55 mg/dL; Protein, Total 7.8 g/dL (6.4-8.2); Triglycerides 62 mg/dL; Very Low Density Lipoprotein 12 mg/dL (5-40)
== END ==
PROVIDERS: PCP Internal Medicine; Referring Provider Internal Medicine Cardiovascular Disease; Visit Provider Internal Medicine Cardiovascular Disease
DX: E78.00 Pure hypercholesterolemia, unspecified (principal)
CPT/HCPCS: 36415; 80061; 80076

== ENCOUNTER → 2021-12-07 | Outpatient (CLI) | payer MEDICARE, SELFPAY ==
[2021-12-07 09:36] LABS: AST(SGOT) 31 U/L (15-37); Alanine Aminotransfer ALT/SGPT 25 U/L (16-61); Albumin, Serum 3.4 g/dL (3.2-5.0); Alkaline Phosphatase 49 U/L (45-117); Bilirubin, Direct 0.21 mg/dL (0.00-0.30); Cholesterol 139 mg/dL (200); Globulin 4.3 g/dL (2.2-4.2); High Density Lipoprotein 53 mg/dL; Protein, Total 7.7 g/dL (6.4-8.2); Triglycerides 63 mg/dL; Very Low Density Lipoprotein 13 mg/dL (5-40)
== END | disposition home or self-care (01) ==
LOC: LAB 08:48
PROVIDERS: PCP Internal Medicine; Referring Provider Internal Medicine Cardiovascular Disease; Visit Provider Internal Medicine Cardiovascular Disease
DX: E78.00 Pure hypercholesterolemia, unspecified (principal); E78.5 Hyperlipidemia, unspecified
CPT/HCPCS: 36415; 80061; 80076

== ENCOUNTER → 2022-03-23 | Outpatient (CLI) | payer MEDICARE, SELFPAY ==
[2022-03-23 15:43] LABS: Absolute Lymphocyte Count 1.48 X10^3/uL (0.83-4.51); Absolute Neutrophil Count 3.5 X10^3/uL (2.0-7.7); Basophil# 0.08 X10^3/uL; Basophil% 1.4 % (0-1); Eosinophil# 0.28 X10^3/uL; Eosinophils% 4.7 % (0-5); Hematocrit 43.8 % (40-54); Hemoglobin 14.1 g/dL (13.0-16.5); Lymphocyte # 1.48 X10^3/ul (0.83-4.51); Mean Corp Hgb Conc 32.2 g/dL (32-36); Mean Corpuscular Hgb 30.1 pg (27.0-32.0); Mean Corpuscular Volume 93.6 fL (80-94); Mean Platelet Vol. 11.8 fl (6.2-12.0); Monocyte# 0.61 X10^3/uL; Monocyte% 10.3 % (0-10); NRBC Flagged by Analyzer 0 % (0-5); Neutrophil # 3.46 X10^3/uL (2.7-7.7); Neutrophil % 58.4 % (47-70); Platelet Count 270 K/mm3 (150-450); RBC Distribution Width CV 15.2 % (11.6-14.6); RBC Distribution Width SD 52.2 fl (35.1-43.9); Red Blood Count 4.68 M/mm3 (4.6-6.2); White Blood Count 5.9 K/mm3 (4.4-11.0)
[2022-03-23 16:05] LABS: Anion Gap 5 (5-15); BUN 26 mg/dL (7-18); BUN/Creat Ratio 17.4 RATIO (10-20); Calcium,Total 8.9 mg/dL (8.5-10.1); Chloride 103 mmol/L (98-107); Creatinine, Serum 1.49 mg/dL (0.70-1.30); EST Glomerular Filtration Rate 49 mL/min (>60); Est Glom Filt Rate - Afr Amer 59 mL/min (>60); Glucose 105 mg/dL (74-106); Potassium 4.4 mmol/L (3.5-5.1); Sodium Level 138 mmol/L (136-145)
[2022-03-23 16:11] LABS: BNP,B-Type NATRIURETIC PEPTIDE 206.4 pg/mL (0-100)
[2022-03-23 16:12] LABS: AST(SGOT) 26 U/L (15-37); Alanine Aminotransfer ALT/SGPT 28 U/L (16-61); Albumin, Serum 3.5 g/dL (3.2-5.0); Alkaline Phosphatase 44 U/L (45-117); Bilirubin, Direct 0.25 mg/dL (0.00-0.30); Cholesterol 129 mg/dL (200); Globulin 4.3 g/dL (2.2-4.2); High Density Lipoprotein 43 mg/dL; Protein, Total 7.8 g/dL (6.4-8.2); Triglycerides 119 mg/dL; Very Low Density Lipoprotein 24 mg/dL (5-40)
== END | disposition home or self-care (01) ==
LOC: LAB 14:23
PROVIDERS: Internal Medicine Cardiovascular Disease; PCP Internal Medicine; Referring Provider Nurse Practitioner Gerontology; Visit Provider Nurse Practitioner Gerontology
DX: R06.00 Dyspnea, unspecified (principal); E78.5 Hyperlipidemia, unspecified
CPT/HCPCS: 36415; 80048; 80061; 80076; 83880; 85025

== ENCOUNTER → 2022-03-25 | Outpatient (CLI) | payer MEDICARE, SELFPAY ==
--- NOTE | 2022-03-25 10:18 | MRI_ITS ---
STUDY: MRI ORBITS WITH AND WITHOUT CONTRAST REASON FOR EXAM: Male, 76 years old. DIPLOPLIA TECHNIQUE: Standardized fat and water weighted pulse sequences were obtained in all 3 orthogonal planes, pre-and post contrast administration. IV 28ml Dotarem was administered for the contrast portion of the examination. COMPARISON: None. FINDINGS: Normal bilateral globes. There is mild fluid distention of the bilateral optic nerve sheaths, consistent with bilateral optic neuritis, slightly more prominent on the left than right. No visualized optic nerve atrophy or enlargement. Normal bilateral optic nerves. Normal bilateral intraconal and extraconal spaces. Normal bilateral extraocular muscles. No cysts or masses or hemorrhage is present in the retrobulbar regions. Normal optic chiasm and post-chiasmatic tracts. Normal sella turcica, pituitary gland, infundibular stalk, and hypothalamus. Normal bilateral cavernous sinuses. Normal tectal plate and pineal gland. IMPRESSION: 1. Mild bilateral optic neuritis STUDY: MRI BRAIN WITH AND WITHOUT CONTRAST REASON FOR EXAM: Male, 76 years old. DIPLOPLIA TECHNIQUE: Standardized multiplanar fat and water weighted pulse sequences were obtained. IV 28ml Dotarem was administered for the contrast portion of the examination. COMPARISON: Head CT dated September 13, 2019 FINDINGS: There is mild cerebral atrophy with widening of the extra-axial spaces and ventricular dilatation. There are multiple white matter hyperintensities, distributed throughout the deep white matter tracts of the cerebral hemispheres, consistent with mild to moderate chronic white matter ischemic changes. There is no evidence for recent intracranial ischemia or other cause of cytotoxic edema on diffusion weighted imaging (DWI). Normal T2* images of the brain without demonstrated susceptibility artifact. There is no demonstrated hemosiderin stain. Small focus of parenchymal bright signal associated with slight volume loss in the right occipital lobe suggests prior infarct with gliotic change. A small cystic vacuole is also present in the superior and posterior aspect of the left frontal lobe, which can be associated with prior focal ischemia, old trauma, or prior inflammatory changes. Normal bilateral basal ganglia. Normal thalami. There is no extra-axial fluid accumulation. Normal flow voids within the major intracranial circulation suggesting patency by spin echo criteria. Normal venous enhancement. There is no enhancing intra-axial or extra-axial abnormality. No focal or suspicious brain parenchymal lesions are present or abnormal enhancement of the brain parenchyma or meninges or dura. Normal sella turcica, pituitary gland, infundibular stalk, optic chiasm and hypothalamus. Normal tectal plate and pineal gland. Normal midbrain, adria and medulla. Chronic microvascular ischemic changes present in the central aspect of the right cerebellar lobe. Normal basal cisterns. Normal bilateral temporal bones. Normal bilateral internal auditory canals. No demonstrated orbital abnormality, within the constraints of a routine brain study. Normal visualized paranasal sinuses. Normal calvarium and skull base. Normal visualized soft tissue structures. Normal visualized upper cervical spine. MRI/Brain W/WO Contrast IMPRESSION: 1. Mild to moderate chronic ischemic and involutional changes of the brain, as described above. 2. Small focus of parenchymal bright signal associated with slight volume loss in the right occipital lobe suggests prior infarct with gliotic change. 3. A small cystic vacuole is also present in the superior and posterior aspect of the left frontal lobe, which can be associated with prior focal ischemia, old trauma, or prior inflammatory changes. 4. No acute infarct or intracranial hemorrhage. Electronically Signed: Adria Sinha MD at 15:44 EDT ,
== END | disposition home or self-care (01) ==
LOC: MRI 10:05
PROVIDERS: PCP Internal Medicine; Referring Provider Nurse Practitioner Family; Visit Provider Nurse Practitioner Family
DX: H53.2 Diplopia (principal)
CPT/HCPCS: 70553; 93225; 93226; A9575

== ENCOUNTER → 2022-04-07 | Outpatient (CLI) | payer MEDICARE, SELFPAY ==
--- NOTE | 2022-04-07 14:57 | ECHOD_ITS ---
Reason For Study: ATRIAL FIB-FLUTTER Procedure This was a 2D Doppler, Color Flow transthoracic echocardiogram. Exam performed in department. Left Ventricle Normal LV size. Moderate concentric left ventricular hypertrophy. Left ventricular systolic function is normal. The estimated ejection fraction is 55 %. No regional wall motion abnormalities noted. Right Ventricle Normal RV size. Normal systolic function. Atria The left atrium is severely enlarged. The right atrium is moderately enlarged. Mitral Valve Normal mitral valve. Tricuspid Valve Normal tricuspid valve. Mild tricuspid valve insufficiency. Pulmonary artery systolic pressure is 26 mmHg. Aortic Valve Trisinus/trileaflet aortic valve. Mild focal aortic valve calcification. Pulmonic Valve Normal pulmonic valve. Great Vessels Mild to moderately dilated aortic root. The pulmonary artery is normal size. Normal inferior vena cava. Pericardium/Pleural No pericardial effusion. MMode/2D Measurements & Calculations LVIDd: 4.8 cm IVSd: 1.3 cm Ao root diam: 4.3 cm LVIDs: 3.1 cm LVPWd: 1.6 cm FS: 35.0 % LAV(MOD-bp): 111.8 ml LVAd ap4: 34.4 cm2 SV(MOD-sp4): 78.8 ml LAV(MOD-bp) Indexed: 42.5 ml/m2 LVLd ap4: 7.5 cm LAV(MOD-sp2): 107.1 ml EDV(MOD-sp4): 129.3 ml LAV(MOD-sp4): 119.1 ml EDV(sp4-el): 134.5 ml LVAs ap4: 20.5 cm2 LVLs ap4: 7.1 cm ESV(MOD-sp4): 50.4 ml ESV(sp4-el): 50.0 ml EF(MOD-sp4): 61.0 % EF(sp4-el): 62.8 % SV(sp4-el): 84.5 ml LA A4 area: 32.8 cm2 LA dimension(2D): 5.4 cm RA A4 area: 30.4 cm2 Doppler Measurements & Calculations MV E max negrita: 104.1 cm/sec Ao V2 max: 120.9 cm/sec LV V1 max: 97.9 cm/sec Ao max P.9 mmHg LV V1 max P.8 mmHg Ao V2 mean: 87.1 cm/sec LV V1 mean P.8 mmHg Ao mean P.3 mmHg LV V1 mean: 62.0 cm/sec Ao V2 VTI: 25.3 cm LV V1 VTI: 21.4 cm PA V2 max: 102.0 cm/sec TR max negrita: 238.6 cm/sec TR max P.8 mmHg ECHO/Echo Complete Interpretation Summary Normal LV size. Left ventricular systolic function is normal. The estimated ejection fraction is 55 %. Mild to moderately dilated aortic root. Moderate concentric left ventricular hypertrophy. The left atrium is severely enlarged. The right atrium is moderately enlarged. Ordering Physician: Kaity Duckworth Referring Physician: Malini Downs M.D. Performed By: Jennifer Garcia, KARY, RVT
== END | disposition home or self-care (01) ==
PROVIDERS: PCP Internal Medicine; Visit Provider Nurse Practitioner Gerontology
DX: I48.0 Paroxysmal atrial fibrillation (principal)
CPT/HCPCS: 93306

== ENCOUNTER → 2022-04-13 | Outpatient (CLI) | payer MEDICARE, SELFPAY ==
--- NOTE | 2022-04-13 14:56 | RAD_ITS ---
INDICATION: Atrial fibrillation, cardioversion EXAMINATION/TECHNIQUE: X-RAY - XR Chest 2 Views COMPARISON: 09/13/2019. FINDINGS: LINES/DEVICES: Left atrial appendage clip is visualized in position. Sternal wires are seen in position. LUNGS: No consolidation, edema or effusion. No pneumothorax. Elevation of the left hemidiaphragm is seen. MEDIASTINUM AND CARDIOVASCULAR STRUCTURES: Cardiac silhouette not enlarged. Central airways and mediastinal contour are unremarkable. BONES AND SOFT TISSUES: Unremarkable. RAD/Chest PA and Lateral IMPRESSION: No radiographic evidence of acute cardiopulmonary disease. Electronically Signed: Nicholas Jacob MD at 16:22 EDT ,
== END | disposition home or self-care (01) ==
LOC: RAD 14:56
PROVIDERS: PCP Internal Medicine; Referring Provider Nurse Practitioner Gerontology; Visit Provider Nurse Practitioner Gerontology
DX: I48.0 Paroxysmal atrial fibrillation (principal)
CPT/HCPCS: 71046

== ENCOUNTER 2022-04-20 10:28 | Day surgery (SDC) | payer MEDICARE, SELFPAY ==
[2022-04-20 11:16] LABS: Prothrombin Time Fingerstick 23.7 SEC (11.7-14.9)
--- NOTE | 2022-04-20 11:54 | PCM.OP.BLANK ---
Problems Associated Problem List Diagnoses (1) Paroxysmal atrial fibrillation: Operative Report Date of Procedure: 04/20/22 DC cardioversion. 77-year-old man with a history of symptomatic atrial fibrillation status post left atrial appendage clipping. Patient has been on anticoagulation with therapeutic INRs for at least 3 weeks. The patient was brought to the cardiac catheterization lab in the postabsorptive nonsedated state. Informed consent was obtained. The patient was seen by Dr. Gastelum of the critical care division. Anterior-posterior pads were applied. The patient was then administered 60 mg of intravenous propofol and 200 J of synchronized biphasic energy was applied with prompt reversal to sinus rhythm. Patient tolerated the procedure well. Conclusion: Successful direct-current cardioversion from atrial fibrillation to sinus rhythm. Continue meds as per office protocol.
--- NOTE | 2022-04-20 13:04 | PCM.OP.PRO ---
Procedure Report Date of Procedure: 04/20/22 CONSCIOUS SEDATION REPORT BRIEF HISTORY OF PRESENT ILLNESS: The patient is a 77-year-old male who presented to [facility] for an elective outpatient cardioversion due to underlying atrial fibrillation. The patient reports no PO intake since midnight, but is currently therapeutic on anticoagulation. The patient does not have a history of BRANDI, asthma or COPD. The patient denies any recent constitutional symptoms such as fevers, chills, nausea or vomiting. The patient denies previous applicable anesthetic complications. PHYSICAL EXAMINATION: VITAL SIGNS: Reviewed and were acceptable. GENERAL: The patient is a male, in no apparent distress, speaking in full sentences. HEENT: Normocephalic, atraumatic. Mucous membranes are moist and pink. Good mouth opening noted. Trachea is midline. Good neck mobility. MP III CHEST: S1, S2 irregularly irregular. No murmurs, rubs or gallops were noted. LUNGS: Clear to auscultation bilaterally without appreciable wheezes, rales or rhonchi. ABDOMEN: Soft, nontender, nondistended. Positive bowel sounds. EXTREMITIES: There is no clubbing, cyanosis or edema. ASA Class: II DESCRIPTION OF PROCEDURE: After confirmation of informed consent, the patient's anesthesia plan was reviewed in detail. Propofol was chosen. Risks and benefits were reviewed and the patient agreed to proceed. At 11:47 AM, the patient was given 40 mg of propofol. The patient required a total of 60 mg of propofol throughout the procedure to achieve appropriate sedation. The patient achieved an appropriate level of sedation and received 1 attempt synchronized cardioversion, at 200J by Dr. Walton at the bedside. This was successful in achieving normal sinus rhythm. The patient was monitored until 12:02 PM, at which time the patient reached their baseline mental status and function. The patient tolerated the procedure well. COMPLICATIONS: None ESTIMATED BLOOD LOSS: None RECOMMENDATIONS: Okay to recover in usual fashion. Procedures Pulmonary 9xxxx: [id number] Con Sedation
== END 2022-04-20 12:45 | disposition home or self-care (01) ==
PROVIDERS: PCP Internal Medicine; Referring Provider Internal Medicine Cardiovascular Disease; Visit Provider Internal Medicine Cardiovascular Disease
DX: I48.91 Unspecified atrial fibrillation (principal); I10 Essential (primary) hypertension; Z86.711 Personal history of pulmonary embolism; Z87.891 Personal history of nicotine dependence; Z79.899 Other long term (current) drug therapy; Z79.82 Long term (current) use of aspirin; Z79.02 Long term (current) use of antithrombotics/antiplatelets
CPT/HCPCS: 36416; 85610; 92960; 93005; J7040

== ENCOUNTER → 2022-06-01 | Outpatient (CLI) | payer MEDICARE, SELFPAY ==
--- NOTE | 2022-06-01 15:08 | PFTCOMP_ITS ---
COMPLETE PULMONARY FUNCTION TEST INTERPRETATION Brief HPI: Patient is a 77-year-old male, currently under the care of Kaity Duckworth, who presents to [facility] for complete pulmonary function tests secondary to diagnosis of high risk med use. Respiratory therapist reports good effort and reproducible results. Interpretation: Forced expiration spirometry shows no large airways obstructive ventilatory defect with an FEV1 of 89% predicted. There is no significant bronchodilator response by strict ATS criteria. Spirograms are of good quality and plateau normally. The respiratory flow volume loop shows a normal pattern. Lung volumes by body plethysmography show a slightly decreased total lung capacity at 6.8 L, 86% predicted. All other lung volumes are within normal limits. Diffusion capacity by carbon monoxide is normal at 92% predicted. The airway resistance is slightly elevated. No previous pulmonary function tests were available for review. Impression: Mild restrictive ventilatory defect with preserved diffusing capacity.
== END | disposition home or self-care (01) ==
LOC: PSN 08:29
PROVIDERS: PCP Internal Medicine; Referring Provider Nurse Practitioner Gerontology; Visit Provider Nurse Practitioner Gerontology
DX: Z79.899 Other long term (current) drug therapy (principal)
CPT/HCPCS: 94060; 94726; 94729

== ENCOUNTER → 2022-09-27 | Outpatient (CLI) | payer MEDICARE, SELFPAY | END | disposition home or self-care (01) | LOC: PSN 12:52 | PROVIDERS: PCP Internal Medicine; Visit Provider Internal Medicine Cardiovascular Disease | DX: I48.0 Paroxysmal atrial fibrillation (principal); Z79.899 Other long term (current) drug therapy; R06.00 Dyspnea, unspecified; R60.9 Edema, unspecified | CPT/HCPCS: 93225; 93226 ==

== ENCOUNTER → 2022-12-14 | Outpatient (CLI) | payer MEDICARE, SELFPAY ==
[2022-12-14 13:21] LABS: AST(SGOT) 20 U/L (15-37); Alanine Aminotransfer ALT/SGPT 29 U/L (16-61); Albumin, Serum 3.5 g/dL (3.2-5.0); Alkaline Phosphatase 57 U/L (45-117); Anion Gap 5 (5-15); BUN 18 mg/dL (7-18); BUN/Creat Ratio 13.2 RATIO (10-20); Bilirubin, Direct 0.34 mg/dL (0.00-0.30); Chloride 107 mmol/L (98-107); Creatinine, Serum 1.36 mg/dL (0.70-1.30); EST Glomerular Filtration Rate 54 mL/min (>60); Est Glom Filt Rate - Afr Amer 66 mL/min (>60); Globulin 4.4 g/dL (2.2-4.2); Glucose 93 mg/dL (74-106); Protein, Total 7.9 g/dL (6.4-8.2); Sodium Level 139 mmol/L (136-145); Thyroid Stim Hormone (TSH) 0.01 uIU/mL (0.358-3.74)
== END | disposition home or self-care (01) ==
LOC: LAB 11:46
PROVIDERS: PCP Internal Medicine; Referring Provider Internal Medicine Cardiovascular Disease; Visit Provider Internal Medicine Cardiovascular Disease
DX: E78.5 Hyperlipidemia, unspecified (principal); Z79.899 Other long term (current) drug therapy
CPT/HCPCS: 36415; 80048; 80076; 84443

== ENCOUNTER → 2023-06-21 | Outpatient (CLI) | payer MEDICARE, SELFPAY ==
[2023-06-21 11:10] LABS: Absolute Lymphocyte Count 1.44 X10^3/uL (0.83-4.51); Absolute Neutrophil Count 3.6 X10^3/uL (2.0-7.7); Basophil# 0.06 X10^3/uL; Basophil% 0.9 % (0-1); Eosinophil# 0.26 X10^3/uL; Eosinophils% 4.1 % (0-5); Hematocrit 46.7 % (40-54); Hemoglobin 14.5 g/dL (13.0-16.5); Lymphocyte # 1.44 X10^3/ul (0.83-4.51); Lymphocyte % 22.6 % (19-41); Mean Corpuscular Hgb 29.5 pg (27.0-32.0); Mean Corpuscular Volume 94.9 fL (80-94); Mean Platelet Vol. 10.6 fl (6.2-12.0); Monocyte# 0.85 X10^3/uL; Monocyte% 13.4 % (0-10); NRBC Flagged by Analyzer 0 % (0-5); Neutrophil # 3.64 X10^3/uL (2.7-7.7); Neutrophil % 57.3 % (47-70); Platelet Count 239 K/mm3 (150-450); RBC Distribution Width CV 15.4 % (11.6-14.6); RBC Distribution Width SD 53.9 fl (35.1-43.9); Red Blood Count 4.92 M/mm3 (4.6-6.2); White Blood Count 6.4 K/mm3 (4.4-11.0)
[2023-06-21 11:57] LABS: AST(SGOT) 19 U/L (15-37); Alanine Aminotransfer ALT/SGPT 26 U/L (16-61); Albumin, Serum 3.5 g/dL (3.2-5.0); Alkaline Phosphatase 55 U/L (45-117); Anion Gap 4 (5-15); BUN 22 mg/dL (7-18); BUN/Creat Ratio 13.8 RATIO (10-20); Bilirubin, Direct 0.33 mg/dL (0.00-0.30); Calcium,Total 8.9 mg/dL (8.5-10.1); Chloride 105 mmol/L (98-107); Cholesterol 133 mg/dL (200); Creatinine, Serum 1.59 mg/dL (0.70-1.30); EST Glomerular Filtration Rate 45 mL/min (>60); Est Glom Filt Rate - Afr Amer 55 mL/min (>60); Free T3 1.9 pg/mL (2.18-3.98); Globulin 4.5 g/dL (2.2-4.2); Glucose 64 mg/dL (74-106); High Density Lipoprotein 60 mg/dL; Potassium 3.9 mmol/L (3.5-5.1); Sodium Level 139 mmol/L (136-145); T4 Free Direct 1.13 ng/dL (0.76-1.46); Thyroid Stim Hormone (TSH) 5.53 uIU/mL (0.358-3.74); Triglycerides 55 mg/dL; Very Low Density Lipoprotein 11 mg/dL (5-40)
== END | disposition home or self-care (01) ==
LOC: LAB 10:43
PROVIDERS: PCP Internal Medicine; Visit Provider Nurse Practitioner Gerontology
DX: R06.00 Dyspnea, unspecified (principal); E78.5 Hyperlipidemia, unspecified; R53.83 Other fatigue
CPT/HCPCS: 36415; 80048; 80061; 80076; 83880; 84439; 84443; 84481; 85025

== ENCOUNTER → 2023-06-29 | Outpatient (CLI) | payer MEDICARE, SELFPAY ==
[2023-06-29 12:00] LABS: Anion Gap 4 (5-15); BUN 24 mg/dL (7-18); BUN/Creat Ratio 16.2 RATIO (10-20); Calcium,Total 8.7 mg/dL (8.5-10.1); Chloride 107 mmol/L (98-107); Creatinine, Serum 1.48 mg/dL (0.70-1.30); EST Glomerular Filtration Rate 49 mL/min (>60); Est Glom Filt Rate - Afr Amer 59 mL/min (>60); Glucose 81 mg/dL (74-106); Sodium Level 139 mmol/L (136-145)
== END | disposition home or self-care (01) ==
LOC: MTLAB 08:59
PROVIDERS: PCP Internal Medicine; Referring Provider Nurse Practitioner Gerontology; Visit Provider Nurse Practitioner Gerontology
DX: R06.00 Dyspnea, unspecified (principal)
CPT/HCPCS: 36415; 80048

== ENCOUNTER → 2023-07-01 | Outpatient (CLI) | payer MEDICARE, SELFPAY ==
--- NOTE | 2023-07-01 13:46 | CT_ITS ---
STUDY: CTA CHEST REASON FOR EXAM: Male, 78 years old. Ascending aortic replacement RADIATION DOSAGE (If Supplied By Facility): CTDIvol = ( 23.73 ) mGy, DLP = ( 741.79 ) mGycm TECHNIQUE: The examination was performed with the intravenous administration of IV 100mL Isovue-300. Post-processing of the angiographic images was performed, with multiplanar reformation and 3D reconstruction. Individualized dose optimization techniques were used for this CT. COMPARISON: Comparison is made with prior study dated April 30, 2019. FINDINGS: Normal enhancement of the main pulmonary artery and right and left pulmonary arteries. Normal enhancement of the bilateral peripheral pulmonary arteries. There is no demonstrated pulmonary embolism. The patient is status post repair of the ascending aortic dilatation. There is no demonstrated aortic dissection. Sternal cerclage wires are present from a prior sternotomy. There are calcifications of the coronary arteries. Normal mediastinum. Normal hilar regions. Normal visualized trachea and bronchi. The lungs are well expanded. Stable scarring in the anterior aspect of the left lower lobe. Normal pleura. Normal chest wall structures. Normal osseous structures. Stable small right adrenal adenoma. 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 Elevation of the left hemidiaphragm with scarring at the left lung base. Coronary artery calcification. Electronically Signed: Demetris Chao MD at 15:29 EST ,
== END | disposition home or self-care (01) ==
PROVIDERS: PCP Internal Medicine; Referring Provider Nurse Practitioner Gerontology; Visit Provider Nurse Practitioner Gerontology
DX: Z95.828 Presence of other vascular implants and grafts (principal)
CPT/HCPCS: 71275; Q9967

== ENCOUNTER → 2023-07-21 | Outpatient (CLI) | payer MEDICARE, SELFPAY ==
--- NOTE | 2023-07-21 09:01 | ECHOCS_ITS ---
Reason For Study: DYSPNEA Procedure This was a 2D Doppler, Color Flow transthoracic echocardiogram. The study was technically difficult. Exam performed in department. Left Ventricle Normal LV size. Left ventricular systolic function is normal. The estimated ejection fraction is 60 %. Stage 2 diastolic dysfunction. No regional wall motion abnormalities noted. Right Ventricle Normal RV size. Normal systolic function. Atria The left atrium is mildly enlarged. The right atrium is mildly enlarged. Aortic Valve The aortic valve is not well visualized in the short axis view. Pulmonic Valve The pulmonic valve is not well visualized. Great Vessels Normal aortic root. The pulmonary artery is normal size. Normal inferior vena cava. Pericardium/Pleural No pericardial effusion. Medication 22 gauge I.V. with prn adaptor inserted into right arm. Diluted definity 3ml given slow IV push to enhance endocardial definition. MMode/2D Measurements & Calculations LVIDd: 4.7 cm IVSd: 1.1 cm Ao root diam: 3.4 cm LVIDs: 3.2 cm LVPWd: 1.1 cm RVDd: 4.0 cm FS: 31.0 % LAV(MOD-bp): 84.9 ml LVAd ap4: 38.0 cm2 SV(MOD-sp4): 83.5 ml LAV(MOD-bp) Indexed: 31.4 ml/m2 LVLd ap4: 8.4 cm LAV(MOD-sp2): 80.9 ml EDV(MOD-sp4): 138.9 ml LAV(MOD-sp4): 81.8 ml EDV(sp4-el): 145.6 ml LVAs ap4: 21.7 cm2 LVLs ap4: 7.1 cm ESV(MOD-sp4): 55.4 ml ESV(sp4-el): 56.5 ml EF(MOD-sp4): 60.1 % EF(sp4-el): 61.2 % SV(sp4-el): 89.1 ml LA dimension(2D): 4.8 cm LA A4 area: 27.6 cm2 RA A4 area: 23.7 cm2 Time Measurements MV dec time: 0.15 sec Doppler Measurements & Calculations MV E max hong: 112.0 cm/sec Lat Peak E' Hong: 13.5 cm/sec Med Peak E' Hong: 9.8 cm/sec MV A max hong: 65.8 cm/sec E/E' lat: 8.3 E/E' med: 11.5 MV E/A: 1.7 Ao V2 max: 120.9 cm/sec LV V1 max: 104.7 cm/sec PA V2 max: 101.8 cm/sec Ao max P.9 mmHg LV V1 max P.4 mmHg TR max hong: 229.9 cm/sec TR max P.1 mmHg ECHO/Echo Complete W/ Contrast Interpretation Summary Normal LV size. Left ventricular systolic function is normal. The left atrium is mildly enlarged. The right atrium is mildly enlarged. The estimated ejection fraction is 60 %. Stage 2 diastolic dysfunction. Contrast injection was performed. Ordering Physician: Kaity Duckworth Referring Physician: FARTUN FITZPATRICK Performed By: Anabel Fajardo RDCS
--- OUTSIDE RECORDS SUMMARY | 2023-07-21 09:14 | XMS RPT_ITS | CCD ---
Author Name Unknown Address [address] [place] [address] Organization [facility] Care Team Providers Care Coagulating Drying Supervisor Name Role Phone Gladis Boateng Unavailable Unavailable Natalie RN, Estrellita Newton Unavailable Unavailable MOIZ Graves, Elda Mathur Unavailable Unavailabl e Gladis Boateng Unavailable Unavailable Himanshu SHAH, Fartun Moise Primary Care Provider Himanshu HSAH Fartun D Primary Care Provider Fartun Downs MD Primary Care Provider MATT GRIFFIN Admitting Unavailable MAYI, MATT P Attending Unavailable TALAMPAS, FARTUN D Primary Care Unavailable MAYI, MATT P Referring Unavailable TALAMPAS, FARTUN D Primary Care Unavailable TALAMPAS, FARTUN D Referring Unavailable MAYI, MATT P Attending Unavailable TALAMPAS, FARTUN D Primary Care Unavailable TALAMPAS, FARTUN D Referring Unavailable TALAMPAS, FARTUN D Primary Care Unavailable TALAMPAS, FARTUN D Primary Care Unavailable TALAMPAS, FARTUN D Attending Unavailable TALAMPAS, FARTUN D Primary Care Unavailable TALAMPAS, FARTUN D Attending Unavailable TALAMPAS, FARTUN D Primary Care Unavailable SOLIZ, GLADIS Attending Unavailable SOLIZ, GLADIS Referring Unavailable TALAMPAS, FARTUN D Primary Care Unavailable TALAMPAS, FARTUN D Primary Care Unavailable TALAMPAS, FARTUN D Referring Unavailable MAYI, MATT P Attending Unavailable MAYI, MATT P Referring Unavailable TALAMPAS, FARTUN D Primary Care Unavailable TALAMPAS, FARTUN D Primary Care Unavailable SOLIZ, GLADIS Attending Unavailable TALAMPAS, FARTUN D Primary Care Unavailable BRIDGETTE AGUILERA Referring Unavailable TALAMPAS, FARTUN D Primary Care Unavailable TALAMPAS, FARTUN D Referring Unavailable Allergies Allergy Classification Reported Allergen(s) Allergy Type Date of Onset Reaction(s) Facility (20 sources) pravastatin; Translations: [PRAVASTATIN] drug allergy 3 Other: See Comments [facility] Work Phone: [phone] (7 sources) simvastatin; Translations: [ZOCOR] allergy to substance 1 Myalgias [facility] Work Phone: [phone] (20 sources) simvastatin; Translations: [SIMVASTATIN] food allergy 4 Other: See Comments [facility] Work Phone: (19 sources) atorvastatin; Translations: [ATORVASTATIN] Drug Allergy 6 Myalgia [facility] Work Phone: (19 sources) Cefuroxime; Translations: [CEFUROXIME] Drug Allergy 1 Diarrhea [facility] Work Phone: (19 sources) HMG-CoA reductase inhibitor; Translations: [[id number] A REDUCTASE INHIBITORS] Drug Intolerance 6 Myalgia [facility] Work Phone: (19 sources) levoFLOXacin; Translations: [LEVOFLOXACIN] Drug Allergy 4 Other: See Comments [facility] Work Phone: (19 sources) Lovastatin; Translations: [LOVASTATIN] Drug Allergy 4 Other: See Comments [facility] Work Phone: (6 sources) Prazosin; Translations: [PRAZOSIN] Drug Allergy 3 Intolerance [facility] Work Phone: Medications Current Medications Medication Drug Class(es) Dates Sig (Normalized) Sig (Original) codeine phosphate 2 mg/ml / guaiFENesin 20 mg/ml oral solution (1 source) Opioid Agonist Start: 03-03-2022 End: 03-10-2022 take 5-10 mL by mouth four times daily as needed for cough codeine-guaiFENesi n (ROBITUSSIN AC) 10-100 mg/5 mL syrup Indications: Cough , COVID-19 virus infection Take 5-10 mL by mouth four times daily as needed for cough for up to 7 days. May cause drowsiness. 120 mL 0 03/03/2022 03/10/2022 Active Completed/Discontinued Medications Medication Drug Class(es) Dates Sig (Normalized) Sig (Original) acetaminophen 325 mg oral tablet (6 sources) Start: 09-08-2019 End: 01-16-2023 take 2 tablets by mouth every four hours as needed acetaminophen (TYLENOL) 325 mg tablet Take 2 tablets by mouth every 4 hours as needed for Pain (for mild pain). 0 09/08/2019 01/16/2023 Discontinued Problems Active Problems Problem Classification Problem Date Documented Da te Episodic/Chronic Aortic; peripheral; and visceral artery aneurysms (18 sources) Thoracic aortic aneurysm without rupture; Translations: [Aortic root dilatation] Onset: 07-29-2015 07-29-2015 Chronic Cardiac dysrhythmias (13 sources) Paroxysmal atrial fibrillation; Translations: [Atrial fibrillation] Onset: 12-23-2010 12-30-2015 Chronic Chronic kidney disease (20 sources) Chronic kidney disease stage 3A ; Translations: [Stage 3a chronic kidney disease (HCC)] Onset: 09-01-2019 Chronic Chronic kidney disease (1 source) Chronic kidney disease; Translations: [Stage 3a chronic kidney disease (HCC)] Onset: 12-03-2020 Coronary atherosclerosis and other heart disease (20 sources) Coronary arteriosclerosis; Translations: [Atherosclerotic heart disease of [place] coronary artery without angina pectoris] Onset: 12-23-2010 12-23-2010 Chronic Disorders of lipid metabolism (20 sources) Hyperlipidemia; Translations: [Hypercholesterolemi a] Onset: 10-17-2008 12-23-2010 Chronic Essential hypertension (20 sources) Hypertensive disorder; Translations: [Essential hypertension] Onset: 11-27-2008 12-23-2010 Chronic Hyperplasia of prostate (17 sources) Benign prostatic hypertrophy with outflow obstruction; Translations: [Benign prostatic hyperplasia with lower urinary tract symptoms] Onset: 04-23-2008 04-23-2008 Chronic Hypertension with complications and secondary hypertension (17 sources) Hypertensive renal disease; Translations: [Hypertensive chronic kidney disease with stage 1 through stage 4 chronic kidney disease, or unspecified chronic kidney disease] Onset: 12-03-2020 12-03-2020 Chronic Miscellaneous mental health disorders (3 sources) Dream anxiety disorder; 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] Onset: 05-18-2023 04-19-2023 Chronic Osteoarthritis (17 sources) Osteoarthritis; Translations: [Unspecified osteoarthritis, unspecified site] Onset: 11-04-2008 11-04-2008 Chronic Other aftercare (2 sources) Patient encounter status; Translations: [Other ad terminal makeup operator (current) drug therapy] Episodic Other aftercare (1 source) Follow-up status; Translations: [Encounter for other specified aftercare] 05-05-2023 Episodic Other connective tissue disease (18 sources) History of total knee arthroplasty; Translations: [Presence of unspecified artificial knee joint] Onset: 09-11-2018 09-12-2018 Chronic Other connective tissue disease (1 source) Presence of right artificial knee joint; Translations: [Status post total right knee replacement] Onset: 09-12-2018 Chronic Other diseases of bladder and urethra (17 sources) Bladder neck obstruction; Translations: [Bladder-neck obstruction] Onset: 05-12-2009 05-12-2009 Chronic Other lower respiratory disease (1 source) Cough; Translations: [Cough] Episodic Other nervous system disorders (2 sources) Disorder of brain; Translations: [Disorder of brain, unspecified] 04-19-2023 Chronic Other nervous system disorders (2 sources) Sleep pattern disturbance; Translations: [Circadian rhythm sleep disorder, unspecified type] 04-19-2023 Chronic Other nervous system disorders (1 source) Disorder of brain, unspecified; 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] Onset: 05-18-2023 Chronic Other nervous system disorders (1 source) Circadian rhythm sleep disorder, unspecified type; Translations: [Sleep pattern disturbance] Onset: 05-18-2023 Chronic Other nutritional; endocrine; and metabolic disorders (5 sources) Body mass index (BMI) 39.0-39.9, adult; Translations: [Body mass index (BMI) 39.0-39.9, adult] Onset: 06-18-2014 06-18-2014 Chronic Other nutritional; endocrine; and metabolic disorders (17 sources) Obesity; Translations: [Obesity, unspecified] Onset: 06-03-2018 12-04-2021 Chronic Other nutritional; endocrine; and metabolic disorders (1 source) Obesity caused by energy imbalance; Translations: [Other obesity due to excess calories] 04-11-2023 Chronic Other nutritional; endocrine; and metabolic disorders (1 source) Other obesity due to excess calories; Translations: [Class 2 obesity due to excess calories with body mass index (BMI) of 39.0 to 39.9 in adult, unspecified whether serious comorbidity present] Onset: 12-04-2021 Chronic Other skin disorders (1 source) Skin lesion; Translations: [Disorder of the skin and subcutaneous tissue, unspecified] Episodic Other skin disorders (1 source) Disorder of the skin and subcutaneous tissue, unspecified; Translations: [Unspecified disorder of skin and subcutaneous tissue] Onset: 04-13-2023 Episodic Thyroid disorders (20 sources) Acquired hypothyroidism; Translations: [Hypothyroidism, unspecified] Onset: 04-07-2010 Chronic Unclassified (2 sources) Radiofrequency ablation operation for arrhythmia ; Translations: [Other specified postprocedural states] Onset: 12-30-2015 12-30-2015 Unclassified (3 sources) Long-term drug therapy; Translations: [Other ad terminal makeup operator (current) drug therapy] Onset: 12-23-2010 12-23-2010 Past or Other Problems Problem Classification Problem Date Documented Date Episodic/Chronic Abdominal hernia (17 sources) Umbilical hernia; Translations: [Umbilical hernia without obstruction or gangrene] Onset: 05-01-2010 05-01-2010 Episodic Crushing injury or internal injury (8 sources) Injury to other specified blood vessels of upper extremity; Translations: [Injury to other specified blood vessels of lower extremity] Onset: 12-23-2010 12-23-2010 Episodic Diabetes mellitus without complication (19 sources) High hemoglobin A1c level; Translations: [Other abnormal glucose] Onset: 09-01-2019 Episodic Nonspecific chest pain (8 sources) Chest pain, unspecified; Translations: [Chest pain, unspecified] Onset: 12-23-2010 Resolved: 12-30-2015 12-23-2010 Episodic Other aftercare (1 source) Other intermediate (current) drug therapy; Translations: [Other ad terminal makeup operator (current) drug therapy] Onset: 12-23-2010 12-23-2010 Episodic Other circulatory disease (1 source) Personal history of other diseases of the circulatory system; Translations: [Status post ascending aortic aneurysm repair] Onset: 12-03-2020 Episodic Other screening for suspected conditions (not mental disorders or infectious disease) (8 sources) Electrocardiogram abnormal; Translations: [Abnormal electrocardiogram [ECG] [EKG]] Onset: 07-30-2015 Resolved: 12-30-2015 07-30-2015 Episodic Pulmonary heart disease (20 sources) Pulmonary embolism; Translations: [H/O: pulmonary embolus] Onset: 12-23-2010 12-23-2010 Episodic Residual codes; unclassified (3 sources) H/O: major vascular surgery; Translations: [Other specified postprocedural states] Onset: 08-28-2019 12-03-2020 Episodic Residual codes; unclassified (15 sources) History of repair of ascending aorta; Translations: [Other specified postprocedural states] Onset: 08-28-2019 12-03-2020 Episodic Residual codes; unclassified (1 source) Other specified postprocedural states; Translations: [Status post ascending aortic aneurysm repair] Onset: 12-03-2020 Episodic Viral infection (18 sources) Postherpetic neuralgia; Translations: [Other postherpetic nervous system involvement] Onset: 08-24-2018 08-24-2018 Episodic Results Test Name Value Interpretation Reference Range Facil ity Vital Signs Date Time Vital Sign Value Performing Clinician Facility 05-23-2023 09:33-0400 Body weight 145.15 kg Gladis Soliz LAST MARKER[employer] OFFICER Work Phone: [facility] 05-23-2023 09:33-0400 Diastolic blood pressure 72 mm[Hg] Gladis Soliz LAST MARKER.SE[employer] AND RESCUE OFFICER Work Phone: [facility] 05-23-2023 09:33-0400 Heart rate 78 /min Gladis Soliz LAST MARKER.SEARCH AND RESCUE OFFICER Work Phone: [facility] 05-23-2023 09:33-0400 Respiratory rate 16 /min Gladis Soliz LAST MARKER.SEARCH AND RESCUE OFFICER Work Phone: [facility] 05-23-2023 09:33-0400 Systolic blood pressure 106 mm[Hg] Gladis Soliz LAST MARKER.SEARCH AND RESCUE OFFICER Work Phone: [facility] 04-25-2023 14:50-0400 Body height 193 cm Matt Griffin MD Work Phone: [facility] 04-25-2023 14:50-0400 Body temperature 97.7 [degF] Matt Griffin MD Work Phone: [facility] 04-25-2023 14:50-0400 Body weight 146.15 kg Matt Griffin MD Work Phone: [facility] 04-25-2023 14:50-0400 Diastolic blood pressure 86 mm[Hg] Matt Griffin MD Work Phone: [facility] 04-25-2023 14:50-0400 Heart rate 78 /min Matt Griffin MD Work Phone: [facility] 04-25-2023 14:50-0400 Respiratory rate 12 /min Matt Griffin MD Work Phone: [facility] 04-25-2023 14:50-0400 SaO2% (BldA) [Mass fraction] 97 % Matt Griffin MD Work Phone: [facility] 04-25-2023 14:50-0400 Systolic blood pressure 120 mm[Hg] Matt Griffin MD Work Phone: [facility] 04-19-2023 07:14-0400 Body weight 144.24 kg Gladis Soliz LAST MARKER.SEARCH AND RESCUE OFFICER Work Phone: [facility] 04-19-2023 07:14-0400 Diastolic blood pressure 83 mm[Hg] Gladis Soliz LAST MARKER.SEARCH AND RESCUE OFFICER Work Phone: [facility] 04-19-2023 07:14-0400 Heart rate 72 /min Gladis Soliz LAST MARKER.SEARCH AND RESCUE OFFICER Work Phone: [facility] 04-19-2023 07:14-0400 Respiratory rate 16 /min Gladis Soliz LAST MARKER.SEARCH AND RESCUE OFFICER Work Phone: [facility] 04-19-2023 07:14-0400 SaO2% (BldA) [Mass fraction] 97 % Gladis Soliz LAST MARKER.SEARCH AND RESCUE OFFICER Work Phone: [facility] 04-19-2023 07:14-0400 Systolic blood pressure 122 mm[Hg] Gladis Soliz LAST MARKER.SEARCH AND RESCUE OFFICER Work Phone: [facility] 04-08-2023 11:13-0400 Body height 193 cm Pac 1 Work Phone: [facility] 04-08-2023 11:13-0400 Body temperature 97.59 [degF] Pacc 1 Work Phone: [facility] 04-08-2023 11:13-0400 Body weight 144.7 kg Pacc 1 Work Phone: [facility] 04-08-2023 11:13-0400 Diastolic blood pressure 82 mm[Hg] Pacc 1 Work Phone: [facility] 04-08-2023 11:13-0400 Heart rate 76 /min Pacc 1 Work Phone: [facility] 04-08-2023 11:13-0400 Respiratory rate 16 /min Pacc 1 Work Phone: [facility] 04-08-2023 11:13-0400 SaO2% (BldA) [Mass fraction] 96 % Pacc 1 Work Phone: [facility] 04-08-2023 11:13-0400 Systolic blood pressure 120 mm[Hg] Pacc 1 Work Phone: [facility] 12-08-2021 09:03-0400 Body weight 149.23 kg Fartun Downs MD Work Phone: [facility] 12-08-2021 09:03-0400 Diastolic blood pressure 64 mm[Hg] Fartun Donws MD Work Phone: [facility] 12-08-2021 09:03-0400 Heart rate 68 /min Fartun Downs MD Work Phone: [facility] 12-08-2021 09:03-0400 Systolic blood pressure 102 mm[Hg] Fartun Downs MD Work Phone: [facility] 01-10-2017 10:01-0400 BMI (Body Mass Index) 37.61 kg/m2 Gladis [facility] Work Phone: 01-10-2017 10:01-0400 BP Diastolic 70 mm[Hg] [facility]is [facility] Work Phone: 01-10-2017 10:01-0400 BP Systolic 116 mm[Hg] Gladis [facility] Work Phone: 01-10-2017 10:0400 Height 193.04 cm Gladis [facility] Work Phone: 01-10-2017 10:-0400 Pulse (Heart Rate) 46 /min Gladis [facility] Work Phone: 01-10-2017 10:-0400 Respiratory Rate 18 /min Gladis [facility] Work Phone: 01-10-2017 10:0400 Weight 140.16 kg Gladis [facility] Work Phone: 07-06-2016 10:35-0500 Heart rate 43 /min MOIZ [facility] Work Phone: 07-06-2016 10:14-0500 BMI (Body Mass Index) 37.12 kg/m2 MOIZ [facility] Work Phone: 07-06-2016 10:14-0500 BP Diastolic 80 mm[Hg] MOIZ [facility] Work Phone: 07-06-2016 10:14-0500 BP Systolic 120 mm[Hg] MOIZ [facility] Work Phone: 07-06-2016 10:14-0500 BSA (Body Surface Area) 2.65 m2 MOIZ [facility] Work Phone: 07-06-2016 10:14-0500 Height 193.04 cm MOIZ [facility] Work Phone: 07-06-2016 10:14-0500 Pulse (Heart Rate) 44 /min MOIZ [facility] Work Phone: 07-06-2016 10:14-0500 Respiratory Rate 18 /min [facility] Work Phone: 07-06-2016 10:14-0500 Weight 138.35 kg MOIZ [facility] Work Phone: 05-03-2013 09:38-0400 Heart rate 405 ms MOIZ [facility] Work Phone: Encounters Encounter Date Encounter Type Care Provider Facility Start: 06-24-2023 End: 06-25-2023 ambulatory FARTUN DOWNS Facility:[facility] Start: 06-17-2023 ambulatory Gladis DEAN Work Phone: [facility] [place] Procedures Date Procedure Procedure Detail Performing Clinician Start: 04-25-2023 Follow-up visit Follow Up MATT GRIFFIN Start: 12-08-2021 Adult depression screening assessment Fartun Downs MD Work Phone: Start: 12-23-2017 Colonoscopy Fartun Downs MD Work Phone: Start: 03-02-2017 End: 07-05-2017 *Hepatic Function Panel Matt Cates MD Work Phone: Start: 03-02-2017 End: 07-05-2017 Lipid 1996 panel - Serum or Plasma Matt Cates MD Work Phone: Start: 01-10-2017 End: 01-10-2017 NANCY Cates MD Work Phone: Start: 01-10-2017 End: 01-10-2017 Follow Up Appt 6 months Matt Cates MD Work Phone: Start: 01-10-2017 End: 01-10-2017 Dietary management education, guidance, and counseling Gladis Boateng Start: 01-10-2017 End: 01-10-2017 NANCY Cates MD Work Phone: Start: 01-10-2017 End: 01-10-2017 Follow Up Appt 6 months Matt Cates MD Work Phone: Start: 08-23-2016 End: 09-02-2016 *Hepatic Function Panel Matt Cates MD Work Phone: Start: 08-23-2016 End: 09-02-2016 Lipid 1996 panel - Serum or Plasma Matt Cates MD Work Phone: Start: 08-23-2016 End: 09-02-2016 *Hepatic Function Panel Matt Cates MD Work Phone: Start: 08-23-2016 End: 09-02-2016 Lipid panel [AGGREGATE] Matt Cates MD Work Phone: Start: 07-06-2016 End: 07-06-2016 DJN Matt Cates MD Work Phone: Start: 07-06-2016 End: 07-06-2016 Follow Up Appt 6 months Matt Cates MD Work Phone: Start: 07-06-2016 End: 07-06-2016 Dietary management education, guidance, and counseling Elda Graves RN Start: 07-06-2016 End: 07-06-2016 NANCY Cates MD Work Phone: Start: 07-06-2016 End: 07-06-2016 Follow Up Appt 6 months Matt Cates MD Work Phone: Start: 06-30-2016 End: 07-06-2016 Echocardiography Matt Cates MD Work Phone: Start: 06-30-2016 End: 07-06-2016 Echocardiography Matt Cates MD Work Phone: Start: 02-06-2016 End: 02-19-2016 *Hepatic Function Panel Matt Cates MD Work Phone: Start: 02-06-2016 End: 02-19-2016 Lipid 1996 panel - Serum or Plasma Matt Cates MD Work Phone: Start: 02-06-2016 End: 02-19-2016 *Hepatic Function Panel Matt Cates MD Work Phone: Start: 02-06-2016 End: 02-19-2016 Lipid panel [AGGREGATE] Matt Cates MD Work Phone: Start: 01-05-2016 End: 06-30-2016 NANCY Cates MD Work Phone: Start: 01-05-2016 End: 01-05-2016 Follow Up Appt 6 months Matt Cates MD Work Phone: Start: 01-05-2016 End: 06-30-2016 NANCY Cates MD Work Phone: Start: 01-05-2016 End: 01-05-2016 Follow Up Appt 6 months Matt Cates MD Work Phone: Start: 12-30-2015 Radiofrequency ablation operation for arrhythmia Hx of radiofreq ablation alternate pathway Elda Graves RN Start: 09-11-2015 End: 09-11-2015 Nurse, Teaching, Wound Check (no charge) Matt Cates MD Work Phone: Start: 09-11-2015 End: 09-11-2015 Nurse, Teaching, Wound Check (no charge) Matt Cates MD Work Phone: Start: 08-11-2015 End: 08-11-2015 *BMP Matt Cates MD Work Phone: Start: 08-11-2015 End: 08-11-2015 aPTT in Platelet poor plasma by Coagulation assay Matt Cates MD Work Phone: Start: 08-11-2015 End: 08-11-2015 CBC W Auto Differential panel - Blood Matt Cates MD Work Phone: Start: 08-11-2015 End: 08-11-2015 NANCY Cates MD Work Phone: Start: 08-11-2015 End: 08-11-2015 Follow Up Appt 1 year Kareen Clarke Work Phone: Start: 08-11-2015 End: 08-11-2015 INR in Platelet poor plasma by Coagulation assay Matt Cates MD Work Phone: Start: 08-11-2015 End: 08-20-2015 Left Heart Cath Matt Cates MD Work Phone: Start: 08-11-2015 End: 08-11-2015 *BMP Matt Cates MD Work Phone: Start: 08-11-2015 End: 08-11-2015 aPTT Matt Cates MD Work Phone: Start: 08-11-2015 End: 08-11-2015 CBC W Auto Differential panel - Blood Matt Cates MD Work Phone: Start: 08-11-2015 End: 08-11-2015 Coagulation factor induced.INR assay in platelet poor plasma Matt Cates MD Work Phone: Start: 08-11-2015 End: 08-11-2015 DJN Matt Cates MD Work Phone: Start: 08-11-2015 End: 08-11-2015 Follow Up Appt 1 year Kareen Clarke Work Phone: Start: 08-11-2015 End: 08-20-2015 Left Heart Cath Matt Cates MD Work Phone: Start: 07-30-2015 End: 08-23-2015 *BMP Matt Cates MD Work Phone: Start: 07-30-2015 End: 08-22-2015 aPTT in Platelet poor plasma by Coagulation assay Matt Cates MD Work Phone: Start: 07-30-2015 End: 08-22-2015 CBC W Auto Differential panel - Blood Matt Cates MD Work Phone: Start: 07-30-2015 End: 08-22-2015 Chest x-ray Matt Cates MD Work Phone: Start: 07-30-2015 End: 08-22-2015 Ecg routine ecg w/least 12 lds w/i&r Matt Cates MD Work Phone: Start: 07-30-2015 End: 08-22-2015 INR in Platelet poor plasma by Coagulation assay Matt Cates MD Work Phone: Start: 07-30-2015 End: 08-23-2015 Left Heart Cath Matt Cates MD Work Phone: Start: 07-30-2015 End: 08-08-2015 Us abdominal real time w/image limited Matt Cates MD Work Phone: Start: 07-30-2015 End: 08-23-2015 *BMP Matt Cates MD Work Phone: Start: 07-30-2015 End: 08-22-2015 aPTT Matt Cates MD Work Phone: Start: 07-30-2015 End: 08-22-2015 CBC W Auto Differential panel - Blood Matt Cates MD Work Phone: Start: 07-30-2015 End: 08-22-2015 Coagulation factor induced.INR assay in platelet poor plasma Matt Cates MD Work Phone: Start: 07-30-2015 End: 08-23-2015 Echo exam of abdomen Matt Cates MD Work Phone: Start: 07-30-2015 End: 08-23-2015 Left Heart Cath Matt Cates MD Work Phone: Start: 07-29-2015 End: 07-30-2015 *Creatinine, Serum Matt Cates MD Work Phone: Start: 07-29-2015 End: 07-30-2015 Ct thorax w/contrast material Matt Cates MD Work Phone: Start: 07-29-2015 End: 07-30-2015 *Creatinine, Serum Matt Cates MD Work Phone: Start: 07-29-2015 End: 07-30-2015 Ct thorax w/dye Matt Cates MD Work Phone: Start: 06-24-2015 End: 08-06-2015 *Hepatic Function Panel Matt Cates MD Work Phone: Start: 06-24-2015 End: 06-24-2015 DJN Matt Cates MD Work Phone: Start: 06-24-2015 End: 06-24-2015 Ecg routine ecg w/least 12 lds w/i&r Matt Cates MD Work Phone: Start: 06-24-2015 End: 07-29-2015 Echocardiography Matt Cates MD Work Phone: Start: 06-24-2015 End: 06-24-2015 Follow Up Appt 6 months Matt Cates MD Work Phone: Start: 06-24-2015 End: 08-06-2015 Lipid 1996 panel - Serum or Plasma Matt Cates MD Work Phone: Start: 06-24-2015 End: 07-30-2015 Stress Echocardiogram (treadmill) Matt Cates MD Work Phone: Start: 06-24-2015 End: 08-06-2015 *Hepatic Function Panel Matt Cates MD Work Phone: Start: 06-24-2015 End: 06-24-2015 DJN Matt Cates MD Work Phone: Start: 06-24-2015 End: 07-29-2015 Echocardiography Matt Cates MD Work Phone: Start: 06-24-2015 End: 06-24-2015 Electrocardiogram, complete Matt siegel MD Work Phone: Start: 06-24-2015 End: 06-24-2015 Follow Up Appt 6 months Matt Cates MD Work Phone: Start: 06-24-2015 End: 08-06-2015 Lipid panel [AGGREGATE] Matt Cates MD Work Phone: Start: 06-24-2015 End: 07-30-2015 Stress Echocardiogram (treadmill) Matt Cates MD Work Phone: Start: 12-23-2014 End: 01-07-2015 *Hepatic Function Panel Matt Cates MD Work Phone: Start: 12-23-2014 End: 01-07-2015 Lipid 1996 panel - Serum or Plasma Matt Cates MD Work Phone: Start: 12-23-2014 End: 01-07-2015 *Hepatic Function Panel Matt Cates MD Work Phone: Start: 12-23-2014 End: 01-07-2015 Lipid panel [AGGREGATE] Matt Cates MD Work Phone: Start: 06-18-2014 End: 06-25-2014 *Hepatic Function Panel Matt Cates MD Work Phone: Start: 06-18-2014 End: 06-18-2014 NANCY Cates MD Work Phone: Start: 06-18-2014 End: 06-18-2014 Follow Up Appt 1 year Kareen Clarke Work Phone: Start: 06-18-2014 End: 06-25-2014 Lipid 1996 panel - Serum or Plasma Matt Cates MD Work Phone: Start: 06-18-2014 End: 06-25-2014 *Hepatic Function Panel Matt Cates MD Work Phone: Start: 06-18-2014 End: 06-18-2014 NANCY Cates MD Work Phone: Start: 06-18-2014 End: 06-18-2014 Follow Up Appt 1 year Kareen Clarke Work Phone: Start: 06-18-2014 End: 06-25-2014 Lipid panel [AGGREGATE] Matt Cates MD Work Phone: Start: 06-24-2013 End: 06-18-2014 *Hepatic Function Panel Kareen Perez Start: 06-24-2013 End: 06-18-2014 Lipid 1996 panel - Serum or Plasma Elroy Walton MD Start: 06-24-2013 End: 06-18-2014 *Hepatic Function Panel Kareen Perez Start: 06-24-2013 End: 06-18-2014 Lipid panel [AGGREGATE] Kareen Perez Start: 05-03-2013 End: 05-03-2013 NANCY Cates MD Work Phone: Start: 05-03-2013 End: 05-03-2013 Ecg routine ecg w/least 12 lds w/i&r Matt Cates MD Work Phone: Start: 05-03-2013 End: 05-03-2013 Follow Up Appt 1 year Kareen Clarke Work Phone: Start: 05-03-2013 End: 05-25-2013 Stress Echocardiogram (treadmill) Matt Cates MD Work Phone: Start: 05-03-2013 End: 05-03-2013 NANCY Cates MD Work Phone: Start: 05-03-2013 End: 05-03-2013 Follow Up Appt 1 year Kareen Clarke Work Phone: Start: 05-03-2013 End: 05-03-2013 Lipid panel [AGGREGATE] Matt Cates MD Work Phone: Start: 05-03-2013 End: 05-25-2013 Stress Echocardiogram (treadmill) Matt Cates MD Work Phone: Start: 01-10-2013 End: 01-19-2013 *BMP Jeremiah Arana MD Start: 01-10-2013 End: 01-19-2013 *Hepatic Function Panel Jeremiah Arana MD Start: 01-10-2013 End: 01-19-2013 Lipid 1996 panel - Serum or Plasma Jeremiah Arana MD Start: 01-10-2013 End: 01-19-2013 Magnesium [Mass/volume] in Serum or Plasma Jeremiah Arana MD Start: 01-10-2013 End: 01-19-2013 *BMP Jeremiah Arana MD Start: 01-10-2013 End: 01-19-2013 *Hepatic Function Panel Jeremiah Arana MD Start: 01-10-2013 End: 01-19-2013 Lipid panel [AGGREGATE] Jeremiah Arana MD Start: 01-10-2013 End: 01-19-2013 Magnesium Jeremiah Arana MD Start: 10-17-2012 End: 10-17-2012 Ecg routine ecg w/least 12 lds w/i&r Jeremiah Arana MD Start: 10-17-2012 End: 10-17-2012 Follow Up Appt 6 months Jeremiah Arana MD Start: 10-17-2012 End: 10-17-2012 Electrocardiogram, complete Jeremiah Arana MD Start: 10-17-2012 End: 10-17-2012 Follow Up Appt 6 months Jeremiah Arana MD Start: 06-28-2012 End: 07-12-2012 *Hepatic Function Panel Jeremiah Arana MD Start: 06-28-2012 End: 07-12-2012 Lipid 1996 panel - Serum or Plasma Jeremiah Arana MD Start: 06-28-2012 End: 07-12-2012 *Hepatic Function Panel Jeremiah Arana MD Start: 06-28-2012 End: 07-12-2012 Lipid panel [AGGREGATE] Jeremiah Arana MD Start: 04-24-2012 End: 09-25-2012 Follow Up Appt 6 months Jeremiah Arana MD Start: 04-24-2012 End: 09-25-2012 Us abdominal real time w/image limited Jeremiah Arana MD Start: 04-24-2012 End: 09-25-2012 Echo exam of abdomen Jeremiah Arana MD Start: 04-24-2012 End: 09-25-2012 Follow Up Appt 6 months Jeremiah Arana MD Start: 12-29-2011 End: 01-20-2012 *Hepatic Function Panel Jeremiah Arana MD Start: 12-29-2011 End: 01-20-2012 Lipid 1996 panel - Serum or Plasma Jeremiah Arana MD Start: 12-29-2011 End: 01-20-2012 *Hepatic Function Panel Jeremiah Arana MD Start: 12-29-2011 End: 01-20-2012 Lipid panel [AGGREGATE] Jeremiah Arana MD Start: 10-11-2011 End: 10-11-2011 Ecg routine ecg w/least 12 lds w/i&r Jeremiah Arana MD Start: 10-11-2011 End: 11-04-2011 Echocardiography Jeremiah Arana MD Start: 10-11-2011 End: 10-11-2011 Follow Up Appt 6 months Jeremiah Arana MD Start: 10-11-2011 End: 11-04-2011 Nuclear stress test -exercise Jeremiah Arana MD Start: 10-11-2011 End: 11-04-2011 Echocardiography Jeremiah Arana MD Start: 10-11-2011 End: 10-11-2011 Electrocardiogram, complete Jeremiah Arana MD Start: 10-11-2011 End: 10-11-2011 Follow Up Appt 6 months Jeremiah Arana MD Start: 10-11-2011 End: 11-04-2011 Nuclear stress test -exercise Jeremiah Arana MD Plan of Treatment Date Care Activity Detail Author Start: 12-24-2027 Colonoscopy COLONOSCOPY [facility] Start: 12-24-2027 COLORECTAL CANCER SCREENING COLORECTAL CANCER SCREENING [facility] Start: 04-08-2026 Diabetes Screening Diabetes Screenin g [facility] Start: 01-27-2026 DIABETES SCREEN DIABETES SCREEN [facility] Start: 11-28-2025 LIPID SCREEN LIPID SCREEN [facility] Start: 12-08-2024 DIABETES SCREEN DIABETES SCREEN [facility] Start: 05-23-2024 BP Controlled (<130/80) BP Controlle d (<130/80) [facility] Start: 04-19-2024 BP Controlled (<130/80) BP Controlle d (<130/80) [facility] Start: 04-08-2024 Hemoglobin/Hematocrit Hemoglobin/Hem [facility] Start: 04-08-2024 Serum Creatinine Serum Creatinine [facility] Start: 12-23-2023 ANNUAL PCP TEAM FREELANCE PROGRAMMER/APP DEVELOPER VICTOR MANUEL DISEASE VISIT ANNUAL PCP TEAM CHRONIC DISEASE VISIT [facility] Start: 12-23-2023 BP CONTROLLED (<130/80) BP CONTROLLE D (<130/80) [facility] Start: 03-25-2023 Covid-19 Vaccine ( season) Covid-19 Vaccine ( season) [facility] Start: 03-25-2023 Influenza vaccination [facility] Start: 03-03-2023 ANNUAL PCP TEAM FREELANCE PROGRAMMER/APP DEVELOPER VICTOR MANUEL DISEASE VISIT ANNUAL PCP TEAM CHRONIC DISEASE VISIT [facility] Start: 12-08-2022 Adult depression screening assessment DEPRESSION SCREENING [facility] Start: 12-08-2022 ANNUAL PCP TEAM FREELANCE PROGRAMMER/APP DEVELOPER VICTOR MANUEL DISEASE VISIT ANNUAL PCP TEAM CHRONIC DISEASE VISIT [facility] Start: 12-08-2022 BP CONTROLLED (<130/80) BP CONTROLLE D (<130/80) [facility] Start: 12-08-2022 [facility] Start: 12-08-2022 SERUM CREATININE SERUM CREATININE [facility] Start: 12-08-2022 SHINGRIX VACCINE (2 of 3) SHINGRIX V ACCINE (2 of 3) [facility] Immunizations Immunization Date Immunization Notes Care Provider Anabel gr 05-05-2022 influenza (aIIV4) vaccine, age 65+ yr, quadrivalent, PF (FLUAD QUAD) Fartun Downs MD Work Phone: [facility] 05-05-2022 influenza virus vacc ine, unspecified formulation [facility] 1 Work Phone: [facility] 05-28-2021 influenza (aIIV4) vaccine, age 65+ yr, quadrivalent, PF (FLUAD QUAD) Fartun Downs MD Work Phone: [facility] 05-05-2020 influenza, high-dose , quadrivalent vaccine (FLUZONE HIGH DOSE QUADRIVALENT) Fartun Downs MD Work Phone: [facility] 05-11-2019 influenza, high dose seasonal, preservative-free Fartun Downs MD Work Phone: [facility] Work Phone: 05-12-2018 influenza, high dose seasonal, preservative-free Fartun Downs MD Work Phone: [facility] Work Phone: 05-18-2017 influenza, high dose seasonal, preservative-free Fartun Downs MD Work Phone: [facility] Work Phone: 05-07-2016 influenza, high dose seasonal, preservative-free Fartun Downs MD Work Phone: [facility] 05-07-2016 pneumococcal polysaccharide vaccine, 23 valent Fartun Downs MD Work Phone: [facility] 06-06-2015 pneumococcal conjuga te vaccine, 13 valent Fartun Downs MD Work Phone: [facility] Work Phone: 05-06-2015 influenza, high dose seasonal, preservative-free Fartun Downs MD Work Phone: [facility] 05-01-2014 influenza, seasonal, injectable Fartun Downs MD Work Phone: [facility] 04-28-2013 influenza virus vacc ine, unspecified formulation Fartun Downs MD Work Phone: [facility] Work Phone: 06-07-2012 zoster vaccine, live Fartun gurrola MD Work Phone: [facility] 04-15-2012 influenza virus vacc ine, unspecified formulation Fartun Downs MD Work Phone: [facility] Work Phone: 07-07-2009 novel influenza-H1N1 -09, all formulations Fartun Downs MD Work Phone: [facility] Work Phone: 10-17-2008 tetanus toxoid, redu edmar diphtheria toxoid, and acellular pertussis vaccine, adsorbed Fartun Downs MD Work Phone: [facility] 06-01-2006 influenza virus vacc ine, unspecified formulation Fartun Downs MD Work Phone: [facility] 05-19-2006 pneumococcal polysaccharide vaccine, 23 valent Fartun Downs MD Work Phone: [facility] Payers Date Payer Category Payer Medicare AETNA MEDICARE A ETNA MEDICARE PPO [id number] 2017-Present [phone] [address] [place] [address] O [id number] 2017 Medicare AETNA MEDICARE A ETNA MEDICARE PPO [id number] 2017-Present [phone] [address] [place] [address] [facility] [id number] 2017 Medicare [id number] Social History Date Type Detail Facility Start: 08-01-2017 End: 03-29-2023 Tobacco smoking status NHIS Ex-smoker [facility] End: 07-25-1971 History of tobacco use Current smoker [facility] Work Phone: End: 07-25-1971 History of tobacco use Cigarette Smoker [facility] Work Phone: Start: 12-08-2021 End: 04-19-2023 Alcohol intake Current drinker of alcohol (finding) [facility] Start: 05-02-2020 End: 12-19-2022 History SDOH Alcohol Frequency 3 [facility] Start: 05-02-2020 History SDOH Alcohol Std Drinks 98 [facility] Start: 09-10-2019 End: 12-19-2022 History SDOH Alcohol Binge 1 [facility] Start: 05-01-2010 History SDOH Alcohol Comment 2 drinks a month [facility] Start: 09-10-2019 End: 12-19-2022 History SDOH Social Connections Phone 5 [facility] Start: 09-10-2019 End: 12-19-2022 History SDOH Physical Activity DPW 2 [facility] Start: 05-02-2020 End: 12-19-2022 History SDOH Physical Activity MPS 4 [facility] Start: 09-09-2019 Education 12 [facility] Start: 1945 Sex Assigned At Male C [facility] Work Phone: Start: 11-28-2021 End: 12-08-2021 Exposure to SARS-CoV-2 (event) Not sure [facility] Start: 08-01-2017 End: 12-19-2022 Cigarettes smoked current (pack per day) - Reported 1.5 [facility] Start: 08-01-2017 End: 03-29-2023 Tobacco use and exposure Smokeless tobacco non-user [facility] Work Phone: Start: 03-03-2022 History SDOH Physica l Activity MPS 6 [facility] Start: 02-21-2022 End: 03-03-2022 Exposure to SARS-CoV-2 (event) Yes [facility] Start: 12-19-2022 End: 12-22-2022 Social connection and isolation panel [facility] Are you now , , , , never or living with a partner? [facility] How often to you hav e a drink containing alcohol? 2-4 times a month [facility] How many standard drinks containing alcohol do you have on a typical day? 1 or 2 [facility] How often do you hav e 6 or more drinks on 1 occasion? Less than monthly [facility] How hard is it for y ou to pay for the very basics like food, housing, medical care, and heating Not hard at all [facility] Do you feel stress - tense, restless, nervous, or anxious, or unable to sleep at night because your mind is troubled all the time - these days [OSQ] Not at all [facility] (I/We) worried leopoldo er (my/our) food would run out before (I/we) got money to buy more. Never true [facility] In the past 12 month s, was there a time when you were not able to pay the mortgage or rent on time? No [facility] Start: 10-06-2018 Gender identity Identifies as male gender (finding) [facility] Work Phone: Start: 10-06-2018 Sexual orientation Heterosexual (fin brenda) [facility] Work Phone: Start: 04-25-2023 End: 05-23-2023 Alcohol intake Ex-drinker (finding) [facility] Medical Equipment Procedure Code Equipment Code Equipment Original Text Equipment Identifier Dates Cement Simplex P Bone Radiopaque Full Dose Sterile - [id number] Start: 06-02-2018 Cement Simplex P Bone Radiopaque Full Dose Sterile - [id number] Start: 06-02-2018 Cement Simplex P Bone Radiopaque Full Dose Sterile - [id number] Start: 09-11-2018 Graft Hemashield [place] 30mm Straight Tube Woven 2 [place] Collagen 30cm - [id number] Start: 08-31-2019 [place] Thk1.65mm P tfe 4x.5in Cardiovascular Sterile - [id number] Start: 08-31-2019 [place] Thk1.65mm P tfe 4x.5in Cardiovascular Sterile - [id number] Start: 08-31-2019 Insert Triathlon 8 X3 9mm Tibial Cruciate Retaining Knee - [id number] Start: 06-02-2018 Component Triath gabby 8 Femoral Cruciate Retain Cemented Knee Left - [id number] Start: 06-02-2018 Baseplate Triath gabby 8 Tibial Primary Cement Knee - [id number] Start: 06-02-2018 Component Triath gabby 40mm X3 11mm Patellar Asymmetric Knee - [id number] Start: 06-02-2018 Component Triath gabby 8 Femoral Cruciate Retain Cemented Knee Right - [id number] Start: 09-11-2018 Component Triath gabby 40mm X3 11mm Patellar Asymmetric Knee - [id number] Start: 09-11-2018 Insert Triathlon 8 X3 9mm Tibial Cruciate Retaining Knee - [id number] Start: 09-11-2018 Baseplate Triath gabby 8 Tibial Primary Cement Knee - [id number] Start: 09-11-2018 Clinical Notes 09-05-2019 to 06-17-2023 Telephone Encounter - Beatriz Mejia LPN - 06/17/2023 2:05 PM Gladis Galo APRN.LISA - 05/23/2023 9:40 AM EDTTelephone Encounter - Gladis Soliz APRN.CNS - 05/12/2023 4:33 PM EDT Note Date & Type Note Facility 06-17-2023 Miscellaneous Notes Patient is requesting that script be sent to mail away pharmacy. Last office visit: 05/23/23 Next appointment scheduled: 06/24/23 Last labs: 04/25/23 last TSH Patient phones requesting refills as follows: Requested Prescriptions Pending Prescriptions Disp Refills levothyroxine (SYNTHROID) 88 mcg tablet 90 tablet 3 Sig: Take 1 tablet by mouth once daily. Please review and advise. Beatriz Mejia LPN documented in this encounter [facility] 05-23-2023 Note HNO ID: [id number] Author: Gladis Soliz APRN.SEARCH AND RESCUE OFFICER Service: ? Author Type: Nurse Specialist Type: Progress Notes Filed: 05/23/2023 2:35 PM Note Text: SUBJECTIVE: RSV Vaccine(1 - 1-dose 60+ series) Never done Shingrix Vaccine(2 of 3) due on 08/02/2012 DTaP,Tdap,Td Vaccine(2 - Td or Tdap) due on 10/17/2018 LDL Cholesterol due on 11/28/2021 Advance Directive Discussion due on 07/25/2022 Influenza Vaccine(1) due on 03/25/2023 Covid-19 Vaccine( season) due on 03/25/2023 HPI Nitin Ochoa is a 78 year old male. 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 (Luts) Mixed Hyperlipidemia Osteoarthrosis, Unspecified Whether Generalized Or Localized, Other Specified Sites Essential Hypertension Bladder Neck Obstruction Hypothyroidism Umbilical Hernia Without Mention of Obstruction Or Gangrene Atherosclerosis of Coronary Artery of [place] Heart Without Angina Pectoris History of Pulmonary Embolism Hypercholesterolemia Class 2 Obesity With Body Mass Index (Bmi) of 39.0 to 39.9 in Adult Postherpetic neuralgia--left lower rib cage S/P Total Knee Replacement Status Post Ascending Aortic Aneurysm Repair Stress Hyperglycemia Stage 3a Chronic Kidney Disease (Hcc) Hypertensive Kidney Disease With Stage 3a Chronic Kidney Disease (Hcc) Aortic Root Dilatation (Hcc) HPI excerpted from previous visit: He is s/p excision of of soft tissue tumor of back with Dr Griffin 04/13/2023. Followed by [facility] cardiology. Seen by Dr. Perez neurology 2017, recommended follow-up in approximately 4 years with imaging, sooner if any symptoms. He reports having nightmares for 3 months. He reports that he is used to being about once a week but now for the last 3 days have been daily. He reports flailing his arms and legs about, no sleepwalking. Notes he has put things off of the bedside table and tried to push his out of bed yesterday. Medication changes: states dose change heart medication, not sure which one OTC antihistamine: No but does use a stool softeners and fiber pills. 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 Snoring Do you snore loudly (louder than talking or loud enough to be heard through closed doors)? YES 2. Tired Do you often feel tired, fatigued, or sleepy during daytime? NO 3. Observed Has anyone observed you stop breathing during your sleep? NO 4. Blood Pressure Do you have or are you being treated for high blood pressure? YES 5. BMI BMI more than 35 kg/m2? YES 6. Age Age over 50 yr old? YES 7. Neck circumference Neck circumference greater than 40 cm? 48 cm YES 8. Gender Gender male? YES * Neck circumference is measured by staff High risk of BRANDI: answering yes to three or more items Low risk of BRANDI: answering yes to less than three items Notes about 8 or 9 hours of sleep per night. No trouble falling asleep or staying asleep. Nocturia 2 x per night. Notes he has had decreased heart rate in the past, no known recently. Today notes that nightmares have decreased, not bothersome as they previously were and less frequent. He notes that thyroid levels were not in good range and thinks this may have been contributing. He noted intolerance of prazosin so was discontinued. Prefers to hold off on treatment with medication for nightmares for now. Notes he has been under some stress due to having decreased memory of late. Review of Systems Psychiatric/Behavioral: Positive for sleep disturbance (less frequent nightmares). Objective BP 106/72 Pulse 78 Resp 16 Wt (!) 145.2 kg (320 lb) BMI 38.95 kg/m? Physical Exam Vitals and nursing note reviewed. Constitutional: Appearance: Normal appearance. HENT: Head: Normocephalic and atraumatic. Cardiovascular: Rate and Rhythm: Normal rate and regular rhythm. Pulmonary: Effort: Pulmonary effort is normal. Breath sounds: Normal breath sounds. Abdominal: General: Bowel sounds are normal. Palpations: Abdomen is soft. Skin: General: Skin is warm and dry. Neurological: General: No focal deficit present. Mental Status: He is alert and oriented to person, place, and time. ALLERGIES Allergen Reactions Levaquin [Levofloxa* Other: See Comments Reports nightmares Lipitor [Atorvastat* Myalgia stopped by Dr. Cates Lovastatin Other: See Comments muscle aches Pravastatin Other: See Comments muscle aches Simvastatin Other: See Comments muscle aches Wzjymiz-Nyy-Cly Red* Myalgia tried them all Ceftin [Cefuroxime] Diarrhea Medication amLODIPine (NORVASC) 10 mg tablet Take 10 mg by mo (more content not included)... [facility] 05-23-2023 History of Presen t illness Narrative SUBJECTIVE: RSV Vaccine(1 - 1-dose 60+ series) Never done Shingrix Vaccine(2 of 3) due on 08/02/2012 DTaP,Tdap,Td Vaccine(2 - Td or Tdap) due on 10/17/2018 LDL Cholesterol due on 11/28/2021 Advance Directive Discussion due on 07/25/2022 Influenza Vaccine(1) due on 03/25/2023 Covid-19 Vaccine( season) due on 03/25/2023 HPI Nitin Ochoa is a 78 year old male. 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 (Luts) Mixed Hyperlipidemia Osteoarthrosis, Unspecified Whether Generalized Or Localized, Other Specified Sites Essential Hypertension Bladder Neck Obstruction Hypothyroidism Umbilical Hernia Without Mention of Obstruction Or Gangrene Atherosclerosis of Coronary Artery of [place] Heart Without Angina Pectoris History of Pulmonary Embolism Hypercholesterolemia Class 2 Obesity With Body Mass Index (Bmi) of 39.0 to 39.9 in Adult Postherpetic neuralgia--left lower rib cage S/P Total Knee Replacement Status Post Ascending Aortic Aneurysm Repair Stress Hyperglycemia Stage 3a Chronic Kidney Disease (Hcc) Hypertensive Kidney Disease With Stage 3a Chronic Kidney Disease (Hcc) Aortic Root Dilatation (Hcc) HPI excerpted from previous visit: He is s/p excision of of soft tissue tumor of back with Dr Griffin 04/13/2023. Followed by [facility] cardiology. Seen by Dr. Perez neurology 2018, recommended follow-up in approximately 4 years with imaging, sooner if any symptoms. He reports having nightmares for 3 months. He reports that he is used to being about once a week but now for the last 3 days have been daily. He reports flailing his arms and legs about, no sleepwalking. Notes he has put things off of the bedside table and tried to push his out of bed yesterday. Medication changes: states dose change heart medication, not sure which one OTC antihistamine: No but does use a stool softeners and fiber pills. 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 Snoring Do you snore loudly (louder than talking or loud enough to be heard through closed doors)? YES 2. Tired Do you often feel tired, fatigued, or sleepy during daytime? NO 3. Observed Has anyone observed you stop breathing during your sleep? NO 4. Blood Pressure Do you have or are you being treated for high blood pressure? YES 5. BMI BMI more than 35 kg/m2? YES 6. Age Age over 50 yr old? YES 7. Neck circumference Neck circumference greater than 40 cm? 48 cm YES 8. Gender Gender male? YES * Neck circumference is measured by staff High risk of BRANDI: answering yes to three or more items Low risk of BRANDI: answering yes to less than three items Notes about 8 or 9 hours of sleep per night. No trouble falling asleep or staying asleep. Nocturia 2 x per night. Notes he has had decreased heart rate in the past, no known recently. Today notes that nightmares have decreased, not bothersome as they previously were and less frequent. He notes that thyroid levels were not in good range and thinks this may have been contributing. He noted intolerance of prazosin so was discontinued. Prefers to hold off on treatment with medication for nightmares for now. Notes he has been under some stress due to having decreased memory of late. Review of Systems Psychiatric/Behavioral: Positive for sleep disturbance (less frequent nightmares). Objective BP 106/72 Pulse 78 Resp 16 Wt (!) 145.2 kg (320 lb) BMI 38.95 kg/m Physical Exam Vitals and nursing note reviewed. Constitutional: Appearance: Normal appearance. HENT: Head: Normocephalic and atraumatic. Cardiovascular: Rate and Rhythm: Normal rate and regular rhythm. Pulmonary: Effort: Pulmonary effort is normal. Breath sounds: Normal breath sounds. Abdominal: General: Bowel sounds are normal. Palpations: Abdomen is soft. Skin: General: Skin is warm and dry. Neurological: General: No focal deficit present. Mental Status: He is alert and oriented to person, place, and time. ALLERGIES Allergen Reactions Levaquin [Levofloxa* Other: See Comments Reports nightmares Lipitor [Atorvastat* Myalgia stopped by Dr. Cates Lovastatin Other: See Comments muscle aches Pravastatin Other: See Comments muscle aches Simvastatin Other: See Comments muscle aches Bugbkce-Eie-Jvp Red* Myalgia tried them all Ceftin [Cefuroxime] Diarrhea Medication amLODIPine (NORVASC) 10 mg tablet Take 10 mg by mouth daily at bedtime. levothyroxine (SYNTHROID) 88 mcg tablet Take 1 tablet by mouth once daily. amiodarone (PACERONE) 100 mg tablet Take 1 tablet by mouth once daily. hydroCHLOROthiazide 12.5 mg tablet Take 1 tablet by mouth once daily. lisinopril (ZESTRIL, PRINIVIL) 10 mg tablet Take 10 mg by mouth twice daily. warfarin (COUMADIN) 5 mg tablet Use as directed by Dr. Walton latanoprost (XALATAN) 0.005 % ophthalmic solution Use 1 Drop in both eyes daily at bedtime. therapeutic multivitamin (THERA VITAMIN) tablet Take 1 tablet by mouth daily with breakfast. ezetimibe (ZETIA) 10 mg tablet Take 1 tablet by mouth once daily. (Patient taking differently: Take 10 mg by mouth daily at bedtime.) prazosin (MINIPRESS) 1 mg cap take 1 capsule by mouth at bedtime magnesium oxide (MAG-OX) 400 mg (241.3 mg magnesium) tablet Take 1 tablet by mouth twice daily. PAST MEDICAL HISTORY Diagnosis Date Abscess of anal and rectal regions Anticoagulated on Coumadin 11/28/2016 Dr. Walton managing cardiac issues now Diverticulosis of colon (without mention of hemorrhage) Dizziness and giddiness Hypothyroidism 04/07/2010 Lesion of temporal lobe Lipoma of other skin and subcutaneous tissue Nightmare 03/2023 Paroxysmal atrial fibrillation (HCC) 08/30/2008 History Pre-op on coumadin/BB Assessment 2. Asc aorta replacement+ Pulmonary vein isolation+ clipping of left atrial appendage with 45mm Atricure clip. Afib 09/05-DCC on 09/06. Remains in SR Plan BB/Amio . Dose daily Coumadin, mag ox. Paroxysmal atrial fibrillation (HCC) 08/30/2008 History Pre-op on coumadin/BB Assessment 2.7 Asc aorta replacement+ Pulmonary vein isolation+ clipping of left atrial appendage with 45mm Atricure clip. Afib 09/05-DCC on 09/06. Remains in SR Plan BB/Amio . Dose daily Coumadin, mag ox. Paroxysmal supraventricular tachycardia 03/17/2011 [facility], Dr Arana PMH - PAST MEDICAL HISTORY OF glaucoma PMH - PAST MEDICAL HISTORY OF blood clots in lungs & legs Postherpetic neuralgia--left lower rib cage 08/24/2018 Primary osteoarthritis of left knee 05/03/2018 Added automatically from request for surgery [id number] Sebaceous cyst Sleep pattern disturbance 03/2023 Unspecified essential hypertension Social History Tobacco Use Smoking status: Former Packs/day: 1.50 Years: 4.00 Additional pack years: 0.00 Total pack years: 6.00 Types: Cigarettes Quit date: 07/25/1971 Years since quittin.8 Smokeless tobacco: Never Vaping Use Vaping Use: Never used Substance Use Topics Alcohol use: Not Currently Comment: 2 drinks a month Drug use: Never Component Latest Ref Rng & Units 01/27/2023 04/08/2023 WBC 3.70 - 11.00 k/uL 4.70 RBC 4.20 - 6.00 m/uL 5.04 Hemoglobin 13.0 - 17.0 g/dL 14.4 Hematocrit 39.0 - 51.0 % 44.6 MCV 80.0 - 100.0 fL 88.5 MCH 26.0 - 34.0 pg 28.6 MCHC 30.5 - 36.0 g/dL 32.3 RDW-CV 11.5 - 15.0 % 15.9 (H) Platelet Count 150 - 400 k/uL 229 MPV 9.0 - 12.7 fL 10.8 Neut% % 56.6 Abs Neut (ANC) 1.45 - 7.50 k/uL 2.66 Lymph% % 26.8 Abs Lymph 1.00 - 4.00 k/uL 1.26 Hill% % 11.5 Abs Hill <0.87 k/uL 0.54 Eosin% % 3.8 Abs Eosin <0.46 k/uL 0.18 Baso% % 1.1 Abs Baso <0.11 k/uL 0.05 Immature Gran % % 0.2 IMMATURE GRANS (ABS) <0.10 k/uL <0.03 NRBC /100 WBC 0.0 Absolute nRBC <0.01 k/uL <0.01 DTYPE Auto Protein, Total 6.3 - 8.0 g/dL 7.7 Albumin 3.9 - 4.9 g/dL 3.9 Calcium 8.5 - 10.2 mg/dL 9.0 Bilirubin, Total 0.2 - 1.3 mg/dL 1.4 (H) Alkaline Phosphatase 38 - 113 U/L 56 AST 14 - 40 U/L 20 ALT 10 - 54 U/L 18 Glucose 74 - 99 mg/dL 85 BUN 9 - 24 mg/dL 19 Creatinine 0.73 - 1.22 mg/dL 1.39 (H) Sodium 136 - 144 mmol/L 138 Potassium 3.7 - 5.1 mmol/L 4.1 Chloride 97 - 105 mmol/L 104 CO2 22 - 30 mmol/L 24 Anion Gap 9 - 18 mmol/L 10 eGFR >=60 mL/min/1.73m 53 (L) Hemoglobin A1C 4.3 - 5.6 % 5.8 (H) Estimated Average Glucose mg/dL 120 Free T4 0.9 - 1.7 ng/dL 1.8 (H) 1.4 Free T3 2.3 - 4.1 pg/mL 2.9 2.2 (L) TSH 0.270 - 4.200 mIU/L 0.097 (L) 3.760 Creatinine Date Value Ref Range Status 04/08/2023 1.39 (H) 0.73 - 1.22 mg/dL Final 12/08/2021 1.59 (H) 0.73 - 1.22 mg/dL Final 11/28/2020 1.41 (H) 0.73 - 1.22 mg/dL Final 05/05/2020 1.51 (H) 0.73 - 1.22 mg/dL Final IMPRESSION: Stable benign-appearing focus lateral to the left temporal horn which may relate to remote insult or injury, unchanged from 2009. Minimal nonspecific white matter changes of presumed small vessel ischemic disease [employer] Teacher: PSCJolie Transcribe Date/Time: Nov 21 2017 11:55A Dictated by : JOSHUA LEVINE MD This examination was interpreted and the report reviewed and electronically signed by: JOSHUA LEVINE MD on Nov 21 2017 12:00PM EST Results-Findings * * *Final Report* * * DATE OF EXAM: Nov 21 2017 11:35AM [id number] - MRI BRAIN WO/W IVCON / [...] orbits and extracranial soft tissues are unremarkable. ASSESSMENT/PLAN: 1. 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 There were chronic microvascular changes noted. He has a neurology appointment scheduled for November 2023. We will keep that for now. - MRI BRAIN WO/W IVCON - IV CONTRAST (RADIOLOGY PROCEDURE) - CONSULT TO NEUROLOGY 2. Nightmare - ICD9: 307.47, ICD10: F51.5 He reports decreased frequency of nightmares, thinks these may have been related to overtreatment of hypothyroid, elevated TSH. Reported adverse effect of prazosin so was discontinued. - MRI BRAIN WO/W IVCON - IV CONTRAST (RADIOLOGY PROCEDURE) - CONSULT TO NEUROLOGY 3. Sleep pattern disturbance - ICD9: 780.50, ICD10: G47.20 - MRI BRAIN WO/W IVCON - IV CONTRAST (RADIOLOGY PROCEDURE) - CONSULT TO NEUROLOGY He reports that the nightmares she was having for the last 3 months are now decreasing in frequency since last seen. Prior history of temporal brain lesion, last MRI and neurology visit was in 2018. He was concerned that there nightmares may have been related to the temporal lobe brain lesions so follow-up MRI was done. Brain lesion was stable. He meets criteria for sleep study, he prefers to hold off on scheduling a sleep study for now. Continue to endorse good sleep hygiene. Defers any additional treatment for nightmares at this time. Consider trazodone or gabapentin at later date if he so desires. If all of these are unrevealing for cause, still having difficulties would endorse behavioral health /psychiatric evaluation. Keep scheduled follow up MD Gladis Diaz APRN.SEARCH AND RESCUE OFFICER Medical Decision Making: Problems: Moderate: 1+ chronic illnesses with change Risk: Moderate: Drug management Medical Decision Making Level: 4 - Moderate documented in this encounter [facility] 05-18-2023 Note HNO ID: [id number] Author: Carmen Contreras RT(R) Service: ? Author Type: Technologist Type: Progress Notes Filed: 05/18/2023 2:49 PM Note Text: Radiology Service Progress Note DATE OF SERVICE: May 18, 2023 TIME: 2:49 PM PATIENT IDENTITY VERIFICATION COMPLETED USING TWO (2) STANDARD IDENTIFIERS: Name and Date of confirmed by patient verbally. FALL SCREENING: Has the patient had 2 falls in the last year or 1 fall with injury or currently using an Ambulatory Assistive Device (Walker, Cane, Wheelchair, Crutches, etc.)? No PATIENT GENDER DATA: Male PATIENT RELEVANT IMPLANT DATA REVIEWED: Yes ALLERGIES: Reviewed and unchanged CONTRAST ALLERGY: NO. EXAM: MRI - CONTRAST TYPE: GROUP II PERIPHERAL IV DATA: Ambulatory: A peripheral IV was started in the Left antecubital site with a Angio cath: 22 gauge. RADIOLOGY DEPARTMENT: MR; Exam(s) Completed: Head: Routine Brain SIGNATURE: RT Grady(R) PATIENT NAME: Nitin Ochoa DATE: May 18, 2023 TIME: 2:49 PM [facility] 05-12-2023 Miscellaneous Notes Reports feeling short of breath on prazosin. Offer visit if willing for recheck documented in this encounter [facility] 05-05-2023 Note HNO ID: [id number] Author: Matt Griffin MD Service: ? Author Type: Physician Type: Progress Notes Filed: 05/05/2023 1:05 PM Note Text: Subjective: Patient is status post excision of a subcutaneous lesion from his right upper back. This was done 04/13/2023. Pathology report came back consistent with a lipoma. Objective:Blood pressure 120/86, pulse 78, temperature 36.5 ?C (97.7 ?F), temperature source Temporal, resp. rate 12, height 193 cm (6' 4 ), weight (!) 146.1 kg (322 lb 3.2 oz), SpO2 97 %. Incision sites healing well there is no signs of infection. Assessment: Aftercare Plan: Anticipate this to heal up correctly. Hopefully there will be no recurrence. He can follow-up with me on an as-needed basis. [facility] 05-05-2023 History of Presen t illness Narrative Subjective: Patient is status post excision of a subcutaneous lesion from his right upper back. This was done 04/13/2023. Pathology report came back consistent with a lipoma. Objective:Blood pressure 120/86, pulse 78, temperature 36.5 C (97.7 F), temperature source Temporal, resp. rate 12, height 193 cm (6' 4 ), weight (!) 146.1 kg (322 lb 3.2 oz), SpO2 97 %. Incision sites healing well there is no signs of infection. Assessment: Aftercare Plan: Anticipate this to heal up correctly. Hopefully there will be no recurrence. He can follow-up with me on an as-needed basis. documented in this encounter [facility] 04-19-2023 Note HNO ID: [id number] Author: Gladis Soliz APRN.SEARCH AND RESCUE OFFICER Service: ? Author Type: Nurse Specialist Type: Progress Notes Filed: 04/19/2023 8:21 AM Note Text: SUBJECTIVE: BP Controlled (<130/80) Never done Shingrix Vaccine(2 of 3) due on 08/02/2012 DTaP,Tdap,Td Vaccine(2 - Td or Tdap) due on 10/17/2018 LDL Cholesterol due on 11/28/2021 Advance Directive Discussion due on 07/25/2022 Covid-19 Vaccine(6 - Moderna series) due on 09/05/2022 Influenza Vaccine(1) due on 03/25/2023 HPI Nitin Ochoa is a 78 year old male. 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 Followed by [facility] cardiology. Seen by Dr. Perez neurology 2018, recommended follow-up in approximately 4 years with imaging, sooner if any symptoms. He reports having nightmares for 3 months. He reports that he is used to being about once a week but now for the last 3 days have been daily. He reports flailing his arms and legs about, no sleepwalking. Notes he has put things off of the bedside table and tried to push his out of bed yesterday. Medication changes: states dose change heart medication, not sure which one OTC antihistamine: No but does use a stool softeners and fiber pills. 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 Snoring Do you snore loudly (louder than talking or loud enough to be heard through closed doors)? YES 2. Tired Do you often feel tired, fatigued, or sleepy during daytime? NO 3. Observed Has anyone observed you stop breathing during your sleep? NO 4. Blood Pressure Do you have or are you being treated for high blood pressure? YES 5. BMI BMI more than 35 kg/m2? YES 6. Age Age over 50 yr old? YES 7. Neck circumference Neck circumference greater than 40 cm? 48 cm YES 8. Gender Gender male? YES * Neck circumference is measured by staff High risk of BRANDI: answering yes to three or more items Low risk of BRANDI: answering yes to less than three items Notes about 8 or 9 hours of sleep per night. No trouble falling asleep or staying asleep. Nocturia 2 x per night. Notes he has had decreased heart rate in the past, no known recently. Review of Systems Objective BP 122/83 Pulse 72 Resp 16 Wt (!) 144.2 kg (318 lb) SpO2 97% BMI 38.71 kg/m? Physical Exam ALLERGIES Allergen Reactions Levaquin [Levofloxa* Other: See Comments Reports nightmares Lipitor [Atorvastat* Myalgia stopped by Dr. Cates Lovastatin Other: See Comments muscle aches Pravastatin Other: See Comments muscle aches Simvastatin Other: See Comments muscle aches Tfxvsnk-Cob-Kiu Red* Myalgia tried them all Ceftin [Cefuroxime] Diarrhea Medication amLODIPine (NORVASC) 10 mg tablet Take 10 mg by mouth daily at bedtime. levothyroxine (SYNTHROID) 88 mcg tablet Take 1 tablet by mouth once daily. amiodarone (PACERONE) 100 mg tablet Take 1 tablet by mouth once daily. hydroCHLOROthiazide 12.5 mg tablet Take 1 tablet by mouth once daily. lisinopril (ZESTRIL, PRINIVIL) 10 mg tablet Take 10 mg by mouth twice daily. warfarin (COUMADIN) 5 mg tablet latanoprost (XALATAN) 0.005 % ophthalmic solution Use 1 Drop in both eyes daily at bedtime. magnesium oxide (MAG-OX) 400 mg (241.3 mg magnesium) tablet Take 1 tablet by mouth twice daily. therapeutic multivitamin (THERA VITAMIN) tablet Take 1 tablet by mouth daily with breakfast. ezetimibe (ZETIA) 10 mg tablet Take 1 tablet by mouth once daily. (Patient taking differently: Take 10 mg by mouth daily at bedtime.) PAST MEDICAL HISTORY Diagnosis Date Abscess of anal and rectal regions Anticoagulated on Coumadin 11/28/2016 Dr. Walton managing cardiac issues now Diverticulosis of colon (without mention of hemorrhage) Dizziness and giddiness Hypothyroidism 04/07/2010 Lipoma of other skin (more content not included)... [facility] 04-19-2023 Instructions Gladis Soliz APRN.CNS - 04/19/2023 8:01 AM EDT Unclear cause of nightmares. Due to your history of temporal lobe brain lesion we will complete a follow-up MRI. If this is unremarkable consider completing a sleep study. Recommend an appointment with Dr. Perez. For now recommend good sleep hygiene. Try prazosin at bedtime to see if this helps. documented in this encounter [facility] 04-19-2023 History of Presen t illness Narrative SUBJECTIVE: BP Controlled (<130/80) Never done Shingrix Vaccine(2 of 3) due on 08/02/2012 DTaP,Tdap,Td Vaccine(2 - Td or Tdap) due on 10/17/2018 LDL Cholesterol due on 11/28/2021 Advance Directive Discussion due on 07/25/2022 Covid-19 Vaccine(6 - Moderna series) due on 09/05/2022 Influenza Vaccine(1) due on 03/25/2023 HPI Nitin Ochoa is a 78 year old male. 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 Followed by [facility] cardiology. Seen by Dr. Perez neurology 2018, recommended follow-up in approximately 4 years with imaging, sooner if any symptoms. He reports having nightmares for 3 months. He reports that he is used to being about once a week but now for the last 3 days have been daily. He reports flailing his arms and legs about, no sleepwalking. Notes he has put things off of the bedside table and tried to push his out of bed yesterday. Medication changes: states dose change heart medication, not sure which one OTC antihistamine: No but does use a stool softeners and fiber pills. 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 Snoring Do you snore loudly (louder than talking or loud enough to be heard through closed doors)? YES 2. Tired Do you often feel tired, fatigued, or sleepy during daytime? NO 3. Observed Has anyone observed you stop breathing during your sleep? NO 4. Blood Pressure Do you have or are you being treated for high blood pressure? YES 5. BMI BMI more than 35 kg/m2? YES 6. Age Age over 50 yr old? YES 7. Neck circumference Neck circumference greater than 40 cm? 48 cm YES 8. Gender Gender male? YES * Neck circumference is measured by staff High risk of BRANDI: answering yes to three or more items Low risk of BRANDI: answering yes to less than three items Notes about 8 or 9 hours of sleep per night. No trouble falling asleep or staying asleep. Nocturia 2 x per night. Notes he has had decreased heart rate in the past, no known recently. Review of Systems Objective BP 122/83 Pulse 72 Resp 16 Wt (!) 144.2 kg (318 lb) SpO2 97% BMI 38.71 kg/m Physical Exam ALLERGIES Allergen Reactions Levaquin [Levofloxa* Other: See Comments Reports nightmares Lipitor [Atorvastat* Myalgia stopped by Dr. Cates Lovastatin Other: See Comments muscle aches Pravastatin Other: See Comments muscle aches Simvastatin Other: See Comments muscle aches Sbxftuj-Lvj-Pwd Red* Myalgia tried them all Ceftin [Cefuroxime] Diarrhea Medication amLODIPine (NORVASC) 10 mg tablet Take 10 mg by mouth daily at bedtime. levothyroxine (SYNTHROID) 88 mcg tablet Take 1 tablet by mouth once daily. amiodarone (PACERONE) 100 mg tablet Take 1 tablet by mouth once daily. hydroCHLOROthiazide 12.5 mg tablet Take 1 tablet by mouth once daily. lisinopril (ZESTRIL, PRINIVIL) 10 mg tablet Take 10 mg by mouth twice daily. warfarin (COUMADIN) 5 mg tablet latanoprost (XALATAN) 0.005 % ophthalmic solution Use 1 Drop in both eyes daily at bedtime. magnesium oxide (MAG-OX) 400 mg (241.3 mg magnesium) tablet Take 1 tablet by mouth twice daily. therapeutic multivitamin (THERA VITAMIN) tablet Take 1 tablet by mouth daily with breakfast. ezetimibe (ZETIA) 10 mg tablet Take 1 tablet by mouth once daily. (Patient taking differently: Take 10 mg by mouth daily at bedtime.) PAST MEDICAL HISTORY Diagnosis Date Abscess of anal and rectal regions Anticoagulated on Coumadin 11/28/2016 Dr. Walton managing cardiac issues now Diverticulosis of colon (without mention of hemorrhage) Dizziness and giddiness Hypothyroidism 04/07/2010 Lipoma of other skin and subcutaneous tissue Paroxysmal atrial fibrillation (HCC) 08/30/2008 History Pre-op on coumadin/BB Assessment . Asc aorta replacement+ Pulmonary vein isolation+ clipping of left atrial appendage with 45mm Atricure clip. Afib 09/05-DCC on 09/06. Remains in SR Plan BB/Amio . Dose daily Coumadin, mag ox. Paroxysmal atrial fibrillation (HCC) 08/30/2008 History Pre-op on coumadin/BB Assessment . Asc aorta replacement+ Pulmonary vein isolation+ clipping of left atrial appendage with 45mm Atricure clip. Afib 09/05-DCC on 09/06. Remains in SR Plan BB/Amio . Dose daily Coumadin, mag ox. Paroxysmal supraventricular tachycardia (HCC) 03/17/2011 [facility], Dr Arana PMH - PAST MEDICAL HISTORY OF glaucoma PMH - PAST MEDICAL HISTORY OF blood clots in lungs & legs Postherpetic neuralgia--left lower rib cage 08/24/2018 Primary osteoarthritis of left knee 05/03/2018 Added automatically from request for surgery [id number] Sebaceous cyst Unspecified essential hypertension Social History Tobacco Use Smoking status: Former Packs/day: 1.50 Years: 4.00 Additional pack years: 0.00 Total pack years: 6.00 Types: Cigarettes Quit date: 07/25/1971 Years since quittin.7 Smokeless tobacco: Never Vaping Use Vaping Use: Never used Substance Use Topics Alcohol use: Yes Comment: 2 drinks a month Drug use: No Component Latest Ref Rng & Units 01/27/2023 04/08/2023 WBC 3.70 - 11.00 k/uL 4.70 RBC 4.20 - 6.00 m/uL 5.04 Hemoglobin 13.0 - 17.0 g/dL 14.4 Hematocrit 39.0 - 51.0 % 44.6 MCV 80.0 - 100.0 fL 88.5 MCH 26.0 - 34.0 pg 28.6 MCHC 30.5 - 36.0 g/dL 32.3 RDW-CV 11.5 - 15.0 % 15.9 (H) Platelet Count 150 - 400 k/uL 229 MPV 9.0 - 12.7 fL 10.8 Neut% % 56.6 Abs Neut (ANC) 1.45 - 7.50 k/uL 2.66 Lymph% % 26.8 Abs Lymph 1.00 - 4.00 k/uL 1.26 Hill% % 11.5 Abs Hill <0.87 k/uL 0.54 Eosin% % 3.8 Abs Eosin <0.46 k/uL 0.18 Baso% % 1.1 Abs Baso <0.11 k/uL 0.05 Immature Gran % % 0.2 IMMATURE GRANS (ABS) <0.10 k/uL <0.03 NRBC /100 WBC 0.0 Absolute nRBC <0.01 k/uL <0.01 DTYPE Auto Protein, Total 6.3 - 8.0 g/dL 7.7 Albumin 3.9 - 4.9 g/dL 3.9 Calcium 8.5 - 10.2 mg/dL 9.0 Bilirubin, Total 0.2 - 1.3 mg/dL 1.4 (H) Alkaline Phosphatase 38 - 113 U/L 56 AST 14 - 40 U/L 20 ALT 10 - 54 U/L 18 Glucose 74 - 99 mg/dL 85 BUN 9 - 24 mg/dL 19 Creatinine 0.73 - 1.22 mg/dL 1.39 (H) Sodium 136 - 144 mmol/L 138 Potassium 3.7 - 5.1 mmol/L 4.1 Chloride 97 - 105 mmol/L 104 CO2 22 - 30 mmol/L 24 Anion Gap 9 - 18 mmol/L 10 eGFR >=60 mL/min/1.73m 53 (L) Hemoglobin A1C 4.3 - 5.6 % 5.8 (H) Estimated Average Glucose mg/dL 120 Free T4 0.9 - 1.7 ng/dL 1.8 (H) 1.4 Free T3 2.3 - 4.1 pg/mL 2.9 2.2 (L) TSH 0.270 - 4.200 mIU/L 0.097 (L) 3.760 Creatinine Date Value Ref Range Status 04/08/2023 1.39 (H) 0.73 - 1.22 mg/dL Final 12/08/2021 1.59 (H) 0.73 - 1.22 mg/dL Final 11/28/2020 1.41 (H) 0.73 - 1.22 mg/dL Final 05/05/2020 1.51 (H) 0.73 - 1.22 mg/dL Final IMPRESSION: Stable benign-appearing focus lateral to the left temporal horn which may relate to remote insult or injury, unchanged from 2009. Minimal nonspecific white matter changes of presumed small vessel ischemic disease [employer] Teacher: MATTI Transcribe Date/Time: Nov 21 2017 11:55A Dictated by : JOSHUA LEVINE MD This examination was interpreted and the report reviewed and electronically signed by: JOSHUA LEVINE MD on Nov 21 2017 12:00PM EST Results-Findings * * *Final Report* * * DATE OF EXAM: Nov 21 2017 11:35AM [facility] 0295 - MRI BRAIN WO/W IVCON / [...] orbits and extracranial soft tissues are unremarkable. ASSESSMENT/PLAN: 1. 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 Nightmare - ICD9: 307.47, ICD10: F51.5 - MRI BRAIN WO/W IVCON - IV CONTRAST (RADIOLOGY PROCEDURE) - CONSULT TO NEUROLOGY 3. Sleep pattern disturbance - ICD9: 780.50, ICD10: G47.20 - MRI BRAIN WO/W IVCON - IV CONTRAST (RADIOLOGY PROCEDURE) - CONSULT TO NEUROLOGY He reports nightmares for the last 3 months that are increasing in frequency, previously once a week now daily for the last 3 days. Prior history of temporal brain lesion, last MRI and neurology visit was in 2018. He is concerned nightmares may be related to this, it is reasonable to recheck stability of this lesion and schedule a visit with neurology. He meets criteria for sleep study, if no concerning findings on MRI would proceed onto sleep study. For now endorse good sleep hygiene, trial of prazosin at bedtime to see if this helps. If all of these are unrevealing for cause, still having difficulties would endorse behavioral health /psychiatric evaluation. 1 mo follow up visit with me. Gladis Soliz APRN.SEARCH AND RESCUE OFFICER Medical Decision Making: Problems: Moderate: 1+ chronic illnesses with change Data: Unique test result(s) reviewed: 3+ Unique test(s) ordered: 1 Risk: Moderate: Drug management Medical Decision Making Level: 4 - Moderate documented in this encounter [facility] documented as of this encounter (statuses as of 04/19/2023) [facility]09-20-2023 History of Past illness Narrative* Problem Noted Date Diagnosed Date Resolved Date Unspecified disorder of skin and subcutaneous tissue 04/13/2023 04/13/2023 Transition of care performed with sharing of clinical summary 09/05/2019 01/03/2020 Overview: Indication for Surgery: AF/Asc aorta aneurysm Preop LVEF: 60% RVF: Normal Postop LVEF: Normal RVF: Normal CARDS [place] EKG afib mild cad Important/Relevant PMH/PSH: AF (BB/Coumadin).DVT/PE(Coumadin). hypothyroid, HTN. mild non obstructive CAD. CKD Stage 3 (baseline Scr 1.3) Preoperative Hospital Course: Airway Difficulty: Grade I - Glidescope (planned) d/t body habitus Pacing Wires: : Pulled 09/03 Chronological List of Surgeries and Major Events 08/31/2019: Asc aorta replacement+ Pulmonary vein isolation+ clipping of left atrial appendage with 45mm Atricure clip Uncomplicated OR course A/P of Major Active Problems Resp Extubated NOS; NC; wean o2,pep,oob CV HTN; cont BB. Amio for afib Renal CKD/FVO, Scr below baseline, Follow UOP/Renal Fx, cont diuresis Endo: SSI To Do or to Watch: Coumadin for AF/PE, dose daily, INR 2.0 afib RVR - mag, amio, BB--DCC 09/06 to SR rash bilat groin area- hydrocort lotion- improved Slight elevation in tbili 1.4- aymptomatic- stable CTA - showed sm PE - US of bilat LE negative for DVT Coumadin as pre op - pt has own machine from [place], [place]. C F2F placed. DC home with [facility] 09/08/19. Discharge Planning: Anticipated Discharge Date: 09/08 Barriers to Discharge: No Barriers to Discharge Care Management Discharge Needs: Needs Prior to Discharge: Procedure Atelectasis 08/31/2019 01/03/2020 Overview: History Elective Glidescope with Grade 1 view d/t body habitus Assessment on RA Plan C/DB,pep,oob Postoperative hypovolemia 08/31/2019 Overview: History Post op Plan PRN IVF replacement Hyperbilirubinemia 08/30/2019 Overview: Bilirubin, Total 2.0 08/30/2019 Bilirubin, Total 1.8 08/28/2019 Bilirubin, Total 1.7 07/10/2019 Bilirubin, Total 1.8 02/28/2019 Bilirubin, Total 1.6 11/10/2016 Discharge planning issues 08/27/2019 Overview: This is a 74 y/o male from [place], [place] here for [facility]. DC home with [facility] [facility] 09/[facility]19. Pre-op testing 08/27/2019 01/03/2020 Overview[facility] Surgeon: Cleveland Reyes M.D. Informed Consent Completed: yes STS Score: unsupported CAD: No Is intended procedure a CABG: No - is a beta adam ordered? No - reason: H & P completed: Yes PA/LAT: Completed CT: Completed no f/u for adrenal gland per Christa check list MRI: N/A LE US: N/A Cath: completed EKG: Completed Is patient on Amiodarone? No Echo:Completed EF %: 61% PI's: N/A Carotid: N/A Mapping: N/A Dental: Completed PFT's: Completed UA: abn HCG:N/A ABO/ABO Confirmed: Yes Blood ordered: No SA Swab: Yes - results: neg Last Dose of Anticoagulation: coumadin 08/25/2019 Op Note: No Pacemaker Check: N/A Implants: no Consults: DM: No Cardiac Surgical prep: Yes will be instructed to take AD to j 1 1 SIGNATURE: Fer Callahan RN DATE of SERVICE: 08/27/2019 TIME of SERVICE: 9:31 AM CHECKED BY: Meli Garay APRN.SULFUR CHLORIDE OPERATOR August 30, 2019 1:14 PM History of pulmonary embolism 09/04/2018 08/31/2019 History of DVT (deep vein thrombosis) 09/04/2018 08/31/2019 Primary localized osteoarthr itis of right knee 08/22/2018 09/12/2018 Overview: Added automatically from request for surgery [id number] Primary osteoarthritis of left knee 05/03/2018 08/24/2018 Overview: Added automatically from request for surgery [id number] Anticoagulated on Coumadin 11/28/2016 0 08/31/2019 Imaging abnormality 10/20/2012 12/04/19 21 Heel spur 10/28/2011 12/03/2020 Paroxysmal supraventricular tachycardia 03/17/2011 04/07/2021 Overview: [facility], Dr Arana H/O: hematuria 05/12/2009 12/03/2020 Routine general medical exam ination at a health care facility 10/23/2008 11/11/2014 Overview: Creat 1.2 in 09-30 Empirically treated with Levaquin in 10-31 per Francoise/Asaf: CXR showed linear atelectasis, no CBC Obesity, Class III, 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 Plan: lifestyle modification Unspecified gastritis and ga stroduodenitis without mention of hemorrhage 10/17/2008 12/03/2020 Overview: Started PPI and checked H pylori in 09-30: consider issue of the K supplements (started about 2 wks prior to symptoms) H pylori positive in 09-30: started Prevpac (responded within 2 weeks) Paroxysmal atrial fibrillation 08/30/2008 04/07/2021 Overview: History Pre-op on coumadin/BB Assessment Asc aorta replacement+ Pulmonary vein isolation+ clipping of left atrial appendage with 45mm Atricure clip. Afib 09/05-DCC on 09/06. Remains in SR Plan BB/Amio . Dose daily Coumadin, mag ox. 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 12/12/200711/22 Overview: Garry 4-09: L temp lesion noted in 03-31 and followed routinely without change (9 mm lesion)-rec MRI in 8 mo documented as of this encounter (statuses as of 05/05/2023) [facility]-20-2023 History of Past illness Narrative* Problem Noted Date Diagnosed Date Resolved Date Unspecified disorder of skin and subcutaneous tissue 04/13/2023 04/13/2023 Transition of care performed with sharing of clinical summary 09/05/2019 01/03/2020 Overview: Indication for Surgery: AF/Asc aorta aneurysm Preop LVEF: 60% RVF: Normal Postop LVEF: Normal RVF: Normal CARDS Wassif EKG afib mild cad Important/Relevant PMH/PSH: AF (BB/Coumadin).DVT/PE(Coumadin). hypothyroid, HTN. mild non obstructive CAD. CKD Stage 3 (baseline Scr 1.3) Preoperative Hospital Course: Airway Difficulty: Grade I - Glidescope (planned) d/t body habitus Pacing Wires: : Pulled 09/03 Chronological List of Surgeries and Major Events 08/31/2019: Asc aorta replacement+ Pulmonary vein isolation+ clipping of left atrial appendage with 45mm Atricure clip Uncomplicated OR course A/P of Major Active Problems Resp Extubated NOS; NC; wean o2,pep,oob CV HTN; cont BB. Amio for afib Renal CKD/FVO, Scr below baseline, Follow UOP/Renal Fx, cont diuresis Endo: SSI To Do or to Watch: Coumadin for AF/PE, dose daily, INR 2.0 afib RVR - mag, amio, BB--DCC 09/06 to SR rash bilat groin area- hydrocort lotion- improved Slight elevation in tbili 1.4- aymptomatic- stable CTA - showed sm PE - US of bilat LE negative for DVT Coumadin as pre op - pt has own machine from [place]. [facility] F2F placed. DC home with [facility] 09/08/19. Discharge Planning: Anticipated Discharge Date: 09/08 Barriers to Discharge: No Barriers to Discharge Care Management Discharge Needs: Needs Prior to Discharge: Procedure Atelectasis 08/31/2019 01/03/2020 Overview: History Elective Glidescope with Grade 1 view d/t body habitus Assessment on RA Plan C/DB,pep,oob Postoperative hypovolemia 08/31/2019 Overview: History Post op Plan PRN IVF replacement Hyperbilirubinemia 08/30/2019 0 Overview: Bilirubin, Total 2.0 08/30/2019 Bilirubin, Total 1.8 08/28/2019 Bilirubin, Total 1.7 07/10/2019 Bilirubin, Total 1.8 02/28/2019 Bilirubin, Total 1.6 11/10/2016 Discharge planning issues 08/27/2019 Overview: This is a 74 y/o male from [place], [place] here for OHS. DC home with [facility] 09/08/19. Pre-op testing 08/27/2019 01/03/2020 Overview: [facility] Surgeon: Cleveland Reyes M.D. Informed Consent Completed: yes STS Score: unsupported CAD: No Is intended procedure a CABG: No - is a beta adam ordered? No - reason: H & P completed: Yes PA/LAT: Completed CT: Completed no f/u for adrenal gland per Christa check list MRI: N/A LE US: N/A Cath: completed EKG: Completed Is patient on Amiodarone? No Echo:Completed EF %: 61% PI's: N/A Carotid: N/A Mapping: N/A Dental: Completed PFT's: Completed UA: abn HCG:N/A ABO/ABO Confirmed: Yes Blood ordered: No SA Swab: Yes - results: neg Last Dose of Anticoagulation: coumadin 08/25/2019 Op Note: No Pacemaker Check: N/A Implants: no Consults: DM: No Cardiac Surgical prep: Yes will be instructed to take AD to j 1 1 SIGNATURE: Fer Callahan RN DATE of SERVICE: 08/27/2019 TIME of SERVICE: 9:31 AM CHECKED BY: Meli Garay APRN.SULFUR CHLORIDE OPERATOR August 30, 2019 1:14 PM History of pulmonary embolism 09/04/2018 08/31/2019 History of DVT (deep vein thrombosis) 09/04/2018 08/31/2019 Primary localized osteoarthr itis of right knee 08/22/2018 09/12/2018 Overview: Added automatically from request for surgery [id number] Primary osteoarthritis of left knee 05/03/2018 08/24/2018 Overview: Added automatically from request for surgery [id number] Anticoagulated on Coumadin 11/28/2016 0 08/31/2019 Imaging abnormality 10/20/2012 12/04/19 21 Heel spur 10/28/2011 12/03/2020 Paroxysmal supraventricular tachycardia 03/17/2011 04/07/2021 Overview: [facility], Dr Arana H/O: hematuria 05/12/2009 12/03/2020 Routine general medical exam ination at a health care facility 10/23/2008 11/11/2014 Overview: Creat 1.2 in 09-30 Empirically treated with Levaquin in 10-31 per Francoise/Asaf: CXR showed linear atelectasis, no CBC Obesity, Class III, 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 Plan: lifestyle modification Unspecified gastritis and ga stroduodenitis without mention of hemorrhage 10/17/2008 12/03/2020 Overview: Started PPI and checked H pylori in 09-30: consider issue of the K supplements (started about 2 wks prior to symptoms) H pylori positive in 09-30: started Prevpac (responded within 2 weeks) Paroxysmal atrial fibrillation 08/30/2008 04/07/2021 Overview: History Pre-op on coumadin/BB Assessment Asc aorta replacement+ Pulmonary vein isolation+ clipping of left atrial appendage with 45mm Atricure clip. Afib 09/05-DCC on 09/06. Remains in SR Plan BB/Amio . Dose daily Coumadin, mag ox. 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 12/12/200711/22 Overview: Garry 10-31: L temp lesion noted in 03-31 and followed routinely without change (9 mm lesion)-rec MRI in 8 mo documented as of this encounter (statuses as of 05/12/2023) [facility]09-20-2023 History of Past illness Narrative* Problem Noted Date Diagnosed Date Resolved Date Unspecified disorder of skin and subcutaneous tissue 04/13/2023 04/13/2023 Transition of care performed with sharing of clinical summary 09/05/2019 01/03/2020 Overview: Indication for Surgery: AF/Asc aorta aneurysm Preop LVEF: 60% RVF: Normal Postop LVEF: Normal RVF: Normal CARDS Wassif EKG afib mild cad Important/Relevant PMH/PSH: AF (BB/Coumadin).DVT/PE(Coumadin). hypothyroid, HTN. mild non obstructive CAD. CKD Stage 3 (baseline Scr 1.3) Preoperative Hospital Course: Airway Difficulty: Grade I - Glidescope (planned) d/t body habitus Pacing Wires: : Pulled 09/03 Chronological List of Surgeries and Major Events 08/31/2019: Asc aorta replacement+ Pulmonary vein isolation+ clipping of left atrial appendage with 45mm Atricure clip Uncomplicated OR course A/P of Major Active Problems Resp Extubated NOS; NC; wean o2,pep,oob CV HTN; cont BB. Amio for afib Renal CKD/FVO, Scr below baseline, Follow UOP/Renal Fx, cont diuresis Endo: SSI To Do or to Watch: Coumadin for AF/PE, dose daily, INR 2.0 afib RVR - mag, amio, BB--DCC 09/06 to SR rash bilat groin area- hydrocort lotion- improved Slight elevation in tbili 1.4- aymptomatic- stable CTA - showed sm PE - US of bilat LE negative for DVT Coumadin as pre op - pt has own machine from [place]. [facility] F2F placed. DC home with [facility] 09/08/19. Discharge Planning: Anticipated Discharge Date: 09/08 Barriers to Discharge: No Barriers to Discharge Care Management Discharge Needs: Needs Prior to Discharge: Procedure Atelectasis 08/31/2019 01/03/2020 Overview: History Elective Glidescope with Grade 1 view d/t body habitus Assessment on RA Plan C/DB,pep,oob Postoperative hypovolemia 08/31/2019 Overview: History Post op Plan PRN IVF replacement Hyperbilirubinemia 08/30/2019 0 Overview: Bilirubin, Total 2.0 08/30/2019 Bilirubin, Total 1.8 08/28/2019 Bilirubin, Total 1.7 07/10/2019 Bilirubin, Total 1.8 02/28/2019 Bilirubin, Total 1.6 11/10/2016 Discharge planning issues 08/27/2019 Overview: This is a 74 y/o male from [place], [place] here for OHS. DC home with [facility] 09/08/19. Pre-op testing 08/27/2019 01/03/2020 Overview: [facility] Surgeon: Cleveland Reyes M.D. Informed Consent Completed: yes STS Score: unsupported CAD: No Is intended procedure a CABG: No - is a beta adam ordered? No - reason: H & P completed: Yes PA/LAT: Completed CT: Completed no f/u for adrenal gland per Christa check list MRI: N/A LE US: N/A Cath: completed EKG: Completed Is patient on Amiodarone? No Echo:Completed EF %: 61% PI's: N/A Carotid: N/A Mapping: N/A Dental: Completed PFT's: Completed UA: abn HCG:N/A ABO/ABO Confirmed: Yes Blood ordered: No SA Swab: Yes - results: neg Last Dose of Anticoagulation: coumadin 08/25/2019 Op Note: No Pacemaker Check: N/A Implants: no Consults: DM: No Cardiac Surgical prep: Yes will be instructed to take AD to j 1 1 SIGNATURE: Fer Callahan RN DATE of SERVICE: 08/27/2019 TIME of SERVICE: 9:31 AM CHECKED BY: Meli Garay APRN.SULFUR CHLORIDE OPERATOR August 30, 2019 1:14 PM History of pulmonary embolism 09/04/2018 08/31/2019 History of DVT (deep vein thrombosis) 09/04/2018 08/31/2019 Primary localized osteoarthr itis of right knee 08/22/2018 09/12/2018 Overview: Added automatically from request for surgery [id number] Primary osteoarthritis of left knee 05/03/2018 08/24/2018 Overview: Added automatically from request for surgery [id number] Anticoagulated on Coumadin 11/28/2016 0 08/31/2019 Imaging abnormality 10/20/2012 12/04/19 21 Heel spur 10/28/2011 12/03/2020 Paroxysmal supraventricular tachycardia 03/17/2011 04/07/2021 Overview: [facility], Dr Arana H/O: hematuria 05/12/2009 12/03/2020 Routine general medical exam ination at a health care facility 10/23/2008 11/11/2014 Overview: Creat 1.2 in 09-30 Empirically treated with Levaquin in 10-31 per Francoise/Asaf: CXR showed linear atelectasis, no CBC Obesity, Class III, 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 Plan: lifestyle modification Unspecified gastritis and ga stroduodenitis without mention of hemorrhage 10/17/2008 12/03/2020 Overview: Started PPI and checked H pylori in 09-30: consider issue of the K supplements (started about 2 wks prior to symptoms) H pylori positive in 09-30: started Prevpac (responded within 2 weeks) Paroxysmal atrial fibrillation 08/30/2008 04/07/2021 Overview: History Pre-op on coumadin/BB Assessment Asc aorta replacement+ Pulmonary vein isolation+ clipping of left atrial appendage with 45mm Atricure clip. Afib 09/05-DCC on 09/06. Remains in SR Plan BB/Amio . Dose daily Coumadin, mag ox. 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 12/12/200711/22 Overview: Garry 09: L temp lesion noted in 03-31 and followed routinely without change (9 mm lesion)-rec MRI in 8 mo documented as of this encounter (statuses as of 05/24/2023) [facility]-20-[facility] History of Past illness Narrative* Problem Noted Date Diagnosed Date Resolved Date Unspecified disorder of skin and subcutaneous tissue 04/13/2023 04/13/2023 Transition of care performed with sharing of clinical summary 09/05/2019 01/03/2020 Overview: Indication for Surgery: AF/Asc aorta aneurysm Preop LVEF: 60% RVF: Normal Postop LVEF: Normal RVF: Normal CARDS Wassif EKG afib mild cad Important/Relevant PMH/PSH: AF (BB/Coumadin).DVT/PE(Coumadin). hypothyroid, HTN. mild non obstructive CAD. CKD Stage 3 (baseline Scr 1.3) Preoperative Hospital Course: Airway Difficulty: Grade I - Glidescope (planned) d/t body habitus Pacing Wires: : Pulled 09/03 Chronological List of Surgeries and Major Events 08/31/2019: Asc aorta replacement+ Pulmonary vein isolation+ clipping of left atrial appendage with 45mm Atricure clip Uncomplicated OR course A/P of Major Active Problems Resp Extubated NOS; NC; wean o2,pep,oob CV HTN; cont BB. Amio for afib Renal CKD/FVO, Scr below baseline, Follow UOP/Renal Fx, cont diuresis Endo: SSI To Do or to Watch: Coumadin for AF/PE, dose daily, INR 2.0 afib RVR - mag, amio, BB--DCC 09/06 to SR rash bilat groin area- hydrocort lotion- improved Slight elevation in tbili 1.4- aymptomatic- stable CTA - showed sm PE - US of bilat LE negative for DVT Coumadin as pre op - pt has own machine from [place]. [facility] F2F placed. DC home with [facility] 09/08/19. Discharge Planning: Anticipated Discharge Date: 09/08 Barriers to Discharge: No Barriers to Discharge Care Management Discharge Needs: Needs Prior to Discharge: Procedure Atelectasis 08/31/2019 01/03/2020 Overview: History Elective Glidescope with Grade 1 view d/t body habitus Assessment on RA Plan C/DB,pep,oob Postoperative hypovolemia 08/31/2019 Overview: History Post op Plan PRN IVF replacement Hyperbilirubinemia 08/30/2019 0 Overview: Bilirubin, Total 2.0 08/30/2019 Bilirubin, Total 1.8 08/28/2019 Bilirubin, Total 1.7 07/10/2019 Bilirubin, Total 1.8 02/28/2019 Bilirubin, Total 1.6 11/10/2016 Discharge planning issues 08/27/2019 Overview: This is a 74 y/o male from [place], [place] here for OHS. DC home with [facility] 09/08/19. Pre-op testing 08/27/2019 01/03/2020 Overview: [facility] Surgeon: Cleveland Reyes M.D. Informed Consent Completed: yes STS Score: unsupported CAD: No Is intended procedure a CABG: No - is a beta adam ordered? No - reason: H & P completed: Yes PA/LAT: Completed CT: Completed no f/u for adrenal gland per Christa check list MRI: N/A LE US: N/A Cath: completed EKG: Completed Is patient on Amiodarone? No Echo:Completed EF %: 61% PI's: N/A Carotid: N/A Mapping: N/A Dental: Completed PFT's: Completed UA: abn HCG:N/A ABO/ABO Confirmed: Yes Blood ordered: No SA Swab: Yes - results: neg Last Dose of Anticoagulation: coumadin 08/25/2019 Op Note: No Pacemaker Check: N/A Implants: no Consults: DM: No Cardiac Surgical prep: Yes will be instructed to take AD to j 1 1 SIGNATURE: Fer Callahan RN DATE of SERVICE: 08/27/2019 TIME of SERVICE: 9:31 AM CHECKED BY: Meli Garay APRN.SULFUR CHLORIDE OPERATOR August 30, 2019 1:14 PM History of pulmonary embolism 09/04/2018 08/31/2019 History of DVT (deep vein thrombosis) 09/04/2018 08/31/2019 Primary localized osteoarthr itis of right knee 08/22/2018 09/12/2018 Overview: Added automatically from request for surgery [id number] Primary osteoarthritis of left knee 05/03/2018 08/24/2018 Overview: Added automatically from request for surgery [id number] Anticoagulated on Coumadin 11/28/2016 0 08/31/2019 Imaging abnormality 10/20/2012 12/04/19 21 Heel spur 10/28/2011 12/03/2020 Paroxysmal supraventricular tachycardia 03/17/2011 04/07/2021 Overview: [facility], Dr Arana H/O: hematuria 05/12/2009 12/03/2020 Routine general medical exam ination at a health care facility 10/23/2008 11/11/2014 Overview: Creat 1.2 in 09-30 Empirically treated with Levaquin in 10-31 per Francoise/Asaf: CXR showed linear atelectasis, no CBC Obesity, Class III, 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 Plan: lifestyle modification Unspecified gastritis and ga stroduodenitis without mention of hemorrhage 10/17/2008 12/03/2020 Overview: Started PPI and checked H pylori in 09-30: consider issue of the K supplements (started about 2 wks prior to symptoms) H pylori positive in 09-30: started Prevpac (responded within 2 weeks) Paroxysmal atrial fibrillation 08/30/2008 04/07/2021 Overview: History Pre-op on coumadin/BB Assessment 2./ Asc aorta replacement+ Pulmonary vein isolation+ clipping of left atrial appendage with 45mm Atricure clip. Afib 09/05-DCC on 09/06. Remains in SR Plan BB/Amio . Dose daily Coumadin, mag ox. 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 12/12/200711/22 Overview: Garry 4-09: L temp lesion noted in 03-31 and followed routinely without change (9 mm lesion)-rec MRI in 8 mo documented as of this encounter (statuses as of 06/17/2023) [facility] History of Past illness Narrative* Problem Noted Date Diagnosed Date Resolved Date Unspecified disorder of skin and subcutaneous tissue 04/13/2023 04/13/2023 Transition of care performed with sharing of clinical summary 09/05/2019 01/03/2020 Overview: Indication for Surgery: AF/Asc aorta aneurysm Preop LVEF: 60% RVF: Normal Postop LVEF: Normal RVF: Normal CARDS Wassif EKG afib mild cad Important/Relevant PMH/PSH: AF (BB/Coumadin).DVT/PE(Coumadin). hypothyroid, HTN. mild non obstructive CAD. CKD Stage 3 (baseline Scr 1.3) Preoperative Hospital Course: Airway Difficulty: Grade I - Glidescope (planned) d/t body habitus Pacing Wires: : Pulled 09/03 Chronological List of Surgeries and Major Events 08/31/2019: Asc aorta replacement+ Pulmonary vein isolation+ clipping of left atrial appendage with 45mm Atricure clip Uncomplicated OR course A/P of Major Active Problems Resp Extubated NOS; NC; wean o2,pep,oob CV HTN; cont BB. Amio for afib Renal CKD/FVO, Scr below baseline, Follow UOP/Renal Fx, cont diuresis Endo: SSI To Do or to Watch: Coumadin for AF/PE, dose daily, INR 2.0 afib RVR - mag, amio, BB--DCC 09/06 to SR rash bilat groin area- hydrocort lotion- improved Slight elevation in tbili 1.4- aymptomatic- stable CTA - showed sm PE - US of bilat LE negative for DVT Coumadin as pre op - pt has own machine from [place]. [facility] F2F placed. DC home with [facility] 09/08/19. Discharge Planning: Anticipated Discharge Date: 09/08 Barriers to Discharge: No Barriers to Discharge Care Management Discharge Needs: Needs Prior to Discharge: Procedure Atelectasis 08/31/2019 01/03/2020 Overview: History Elective Glidescope with Grade 1 view d/t body habitus Assessment on RA Plan C/DB,pep,oob Postoperative hypovolemia 08/31/2019 Overview: History Post op Plan PRN IVF replacement Hyperbilirubinemia 08/30/2019 0 Overview: Bilirubin, Total 2.0 08/30/2019 Bilirubin, Total 1.8 08/28/2019 Bilirubin, Total 1.7 07/10/2019 Bilirubin, Total 1.8 02/28/2019 Bilirubin, Total 1.6 11/10/2016 Discharge planning issues 08/27/2019 Overview: This is a 74 y/o male from [place], [place] here for OHS. DC home with [facility] 09/08/19. Pre-op testing 08/27/2019 01/03/2020 Overview: [facility] Surgeon: Cleveland Reyes M.D. Informed Consent Completed: yes STS Score: unsupported CAD: No Is intended procedure a CABG: No - is a beta adam ordered? No - reason: H & P completed: Yes PA/LAT: Completed CT: Completed no f/u for adrenal gland per Christa check list MRI: N/A LE US: N/A Cath: completed EKG: Completed Is patient on Amiodarone? No Echo:Completed EF %: 61% PI's: N/A Carotid: N/A Mapping: N/A Dental: Completed PFT's: Completed UA: abn HCG:N/A ABO/ABO Confirmed: Yes Blood ordered: No SA Swab: Yes - results: neg Last Dose of Anticoagulation: coumadin 08/25/2019 Op Note: No Pacemaker Check: N/A Implants: no Consults: DM: No Cardiac Surgical prep: Yes will be instructed to take AD to j 1 1 SIGNATURE: Fer Callahan RN DATE of SERVICE: 08/27/2019 TIME of SERVICE: 9:31 AM CHECKED BY: Meli Garay APRN.SULFUR CHLORIDE OPERATOR August 30, 2019 1:14 PM History of pulmonary embolism 09/04/2018 08/31/2019 History of DVT (deep vein thrombosis) 09/04/2018 08/31/2019 Primary localized osteoarthr itis of right knee 08/22/2018 09/12/2018 Overview: Added automatically from request for surgery [id number] Primary osteoarthritis of left knee 05/03/2018 08/24/2018 Overview: Added automatically from request for surgery [id number] Anticoagulated on Coumadin 11/28/2016 0 08/31/2019 Imaging abnormality 10/20/2012 12/04/19 21 Heel spur 10/28/2011 12/03/2020 Paroxysmal supraventricular tachycardia 03/17/2011 04/07/2021 Overview: [facility], Dr Arana H/O: hematuria 05/12/2009 12/03/2020 Routine general medical exam ination at a health care facility 10/23/2008 11/11/2014 Overview: Creat 1.2 in 09-30 Empirically treated with Levaquin in 10-31 per Francoise/Asaf: CXR showed linear atelectasis, no CBC Obesity, Class III, 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 Plan: lifestyle modification Unspecified gastritis and ga stroduodenitis without mention of hemorrhage 10/17/2008 12/03/2020 Overview: Started PPI and checked H pylori in 09-30: consider issue of the K supplements (started about 2 wks prior to symptoms) H pylori positive in 09-30: started Prevpac (responded within 2 weeks) Paroxysmal atrial fibrillation 08/30/2008 04/07/2021 Overview: History Pre-op on coumadin/BB Assessment Asc aorta replacement+ Pulmonary vein isolation+ clipping of left atrial appendage with 45mm Atricure clip. Afib 09/05-DCC on 09/06. Remains in SR Plan BB/Amio . Dose daily Coumadin, mag ox. 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 12/12/200711/22 Overview: Garry 4-09: L temp lesion noted in 03-31 and followed routinely without change (9 mm lesion)-rec MRI in 8 mo documented as of this encounter (statuses as of 06/17/2023) [facility] History of Past illness Narrative* Problem Noted Date Diagnosed Date Resolved Date Unspecified disorder of skin and subcutaneous tissue 04/13/2023 04/13/2023 Transition of care performed with sharing of clinical summary 09/05/2019 01/03/2020 Overview: Indication for Surgery: AF/Asc aorta aneurysm Preop LVEF: 60% RVF: Normal Postop LVEF: Normal RVF: Normal CARDS Wassif EKG afib mild cad Important/Relevant PMH/PSH: AF (BB/Coumadin).DVT/PE(Coumadin). hypothyroid, HTN. mild non obstructive CAD. CKD Stage 3 (baseline Scr 1.3) Preoperative Hospital Course: Airway Difficulty: Grade I - Glidescope (planned) d/t body habitus Pacing Wires: : Pulled 09/03 Chronological List of Surgeries and Major Events 08/31/2019: Asc aorta replacement+ Pulmonary vein isolation+ clipping of left atrial appendage with 45mm Atricure clip Uncomplicated OR course A/P of Major Active Problems Resp Extubated NOS; NC; wean o2,pep,oob CV HTN; cont BB. Amio for afib Renal CKD/FVO, Scr below baseline, Follow UOP/Renal Fx, cont diuresis Endo: SSI To Do or to Watch: Coumadin for AF/PE, dose daily, INR 2.0 afib RVR - mag, amio, BB--DCC 09/06 to SR rash bilat groin area- hydrocort lotion- improved Slight elevation in tbili 1.4- aymptomatic- stable CTA - showed sm PE - US of bilat LE negative for DVT Coumadin as pre op - pt has own machine from [place], [place] F[facility] placed. DC home with [facility] 09/08/19. Discharge Planning: Anticipated Discharge Date: 09/08 Barriers to Discharge: No Barriers to Discharge Care Management Discharge Needs: Needs Prior to Discharge: Procedure Atelectasis 08/31/2019 01/03/2020 Overview: History Elective Glidescope with Grade 1 view d/t body habitus Assessment on RA Plan C/DB,pep,oob Postoperative hypovolemia 08/31/2019 Overview: History Post op Plan PRN IVF replacement Hyperbilirubinemia 08/30/2019 0 Overview: Bilirubin, Total 2.0 08/30/2019 Bilirubin, Total 1.8 08/28/2019 Bilirubin, Total 1.7 07/10/2019 Bilirubin, Total 1.8 02/28/2019 Bilirubin, Total 1.6 11/10/2016 Discharge planning issues 08/27/2019 Overview: This is a 74 y/o male from [place], [place] here for OHS. DC home with [facility] 09/08/19. Pre-op testing 08/27/2019 01/03/2020 Overview[facility] Surgeon: Cleveland Reyes M.D. Informed Consent Completed: yes STS Score: unsupported CAD: No Is intended procedure a CABG: No - is a beta adam ordered? No - reason: H & P completed: Yes PA/LAT: Completed CT: Completed no f/u for adrenal gland per Christa check list MRI: N/A LE US: N/A Cath: completed EKG: Completed Is patient on Amiodarone? No Echo:Completed EF %: 61% PI's: N/A Carotid: N/A Mapping: N/A Dental: Completed PFT's: Completed UA: abn HCG:N/A ABO/ABO Confirmed: Yes Blood ordered: No SA Swab: Yes - results: neg Last Dose of Anticoagulation: coumadin 08/25/2019 Op Note: No Pacemaker Check: N/A Implants: no Consults: DM: No Cardiac Surgical prep: Yes will be instructed to take AD to j 1 1 SIGNATURE: Fer Callahan RN DATE of SERVICE: 08/27/2019 TIME of SERVICE: 9:31 AM CHECKED BY: Meli Garay APRN.SULFUR CHLORIDE OPERATOR August 30, 2019 1:14 PM History of pulmonary embolism 09/04/2018 08/31/2019 History of DVT (deep vein thrombosis) 09/04/2018 08/31/2019 Primary localized osteoarthr itis of right knee 08/22/2018 09/12/2018 Overview: Added automatically from request for surgery [id number] Primary osteoarthritis of left knee 05/03/2018 08/24/2018 Overview: Added automatically from request for surgery [id number] Anticoagulated on Coumadin 11/28/2016 0 08/31/2019 Imaging abnormality 10/20/2012 12/04/19 21 Heel spur 10/28/2011 12/03/2020 Paroxysmal supraventricular tachycardia 03/17/2011 04/07/2021 Overview: [facility], Dr Arana H/O: hematuria 05/12/2009 12/03/2020 Routine general medical exam ination at a health care facility 10/23/2008 11/11/2014 Overview: Creat 1.2 in 09-30 Empirically treated with Levaquin in 10-31 per Francoise/Asaf: CXR showed linear atelectasis, no CBC Obesity, Class III, 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 Plan: lifestyle modification Unspecified gastritis and ga stroduodenitis without mention of hemorrhage 10/17/2008 12/03/2020 Overview: Started PPI and checked H pylori in 09-30: consider issue of the K supplements (started about 2 wks prior to symptoms) H pylori positive in 09-30: started Prevpac (responded within 2 weeks) Paroxysmal atrial fibrillation 08/30/2008 04/07/2021 Overview: History Pre-op on coumadin/BB Assessment Asc aorta replacement+ Pulmonary vein isolation+ clipping of left atrial appendage with 45mm Atricure clip. Afib 09/05-DCC on 09/06. Remains in SR Plan BB/Amio . Dose daily Coumadin, mag ox. 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 12/12/200711/22 Overview: Garry 10-31: L temp lesion noted in 03-31 and followed routinely without change (9 mm lesion)-rec MRI in 8 mo documented as of this encounter (statuses as of 06/17/2023) [facility]-20-[facility] History of Past illness Narrative* Problem Noted Date Diagnosed Date Resolved Date Unspecified disorder of skin and subcutaneous tissue 04/13/2023 04/13/2023 Transition of care performed with sharing of clinical summary 09/05/2019 01/03/2020 Overview: Indication for Surgery: AF/Asc aorta aneurysm Preop LVEF: 60% RVF: Normal Postop LVEF: Normal RVF: Normal CARDS Wassif EKG afib mild cad Important/Relevant PMH/PSH: AF (BB/Coumadin).DVT/PE(Coumadin). hypothyroid, HTN. mild non obstructive CAD. CKD Stage 3 (baseline Scr 1.3) Preoperative Hospital Course: Airway Difficulty: Grade I - Glidescope (planned) d/t body habitus Pacing Wires: : Pulled 09/03 Chronological List of Surgeries and Major Events 08/31/2019: Asc aorta replacement+ Pulmonary vein isolation+ clipping of left atrial appendage with 45mm Atricure clip Uncomplicated OR course A/P of Major Active Problems Resp Extubated NOS; NC; wean o2,pep,oob CV HTN; cont BB. Amio for afib Renal CKD/FVO, Scr below baseline, Follow UOP/Renal Fx, cont diuresis Endo: SSI To Do or to Watch: Coumadin for AF/PE, dose daily, INR 2.0 afib RVR - mag, amio, BB--DCC 09/06 to SR rash bilat groin area- hydrocort lotion- improved Slight elevation in tbili 1.4- aymptomatic- stable CTA - showed sm PE - US of bilat LE negative for DVT Coumadin as pre op - pt has own machine from [place]. [facility] F2F placed. DC home with [facility] 09/08/19. Discharge Planning: Anticipated Discharge Date: 09/08 Barriers to Discharge: No Barriers to Discharge Care Management Discharge Needs: Needs Prior to Discharge: Procedure Atelectasis 08/31/2019 01/03/2020 Overview: History Elective Glidescope with Grade 1 view d/t body habitus Assessment on RA Plan C/DB,pep,oob Postoperative hypovolemia 08/31/2019 Overview: History Post op Plan PRN IVF replacement Hyperbilirubinemia 08/30/2019 0 Overview: Bilirubin, Total 2.0 08/30/2019 Bilirubin, Total 1.8 08/28/2019 Bilirubin, Total 1.7 07/10/2019 Bilirubin, Total 1.8 02/28/2019 Bilirubin, Total 1.6 11/10/2016 Discharge planning issues 08/27/2019 Overview: This is a 74 y/o male from [place], [place] here for OHS. DC home with [facility] 09/08/19. Pre-op testing 08/27/2019 01/03/2020 Overview: [facility] PRE[facility]OP [facility] Surgeon: Cleveland Reyes M.D. Informed Consent Completed: yes STS Score: unsupported CAD: No Is intended procedure a CABG: No - is a beta adam ordered? No - reason: H & P completed: Yes PA/LAT: Completed CT: Completed no f/u for adrenal gland per Christa check list MRI: N/A LE US: N/A Cath: completed EKG: Completed Is patient on Amiodarone? No Echo:Completed EF %: 61% PI's: N/A Carotid: N/A Mapping: N/A Dental: Completed PFT's: Completed UA: abn HCG:N/A ABO/ABO Confirmed: Yes Blood ordered: No SA Swab: Yes - results: neg Last Dose of Anticoagulation: coumadin 08/25/2019 Op Note: No Pacemaker Check: N/A Implants: no Consults: DM: No Cardiac Surgical prep: Yes will be instructed to take AD to j 1 1 SIGNATURE: Fer Callahan RN DATE of SERVICE: 08/27/2019 TIME of SERVICE: 9:31 AM CHECKED BY: Meli Garay APRN.SULFUR CHLORIDE OPERATOR August 30, 2019 1:14 PM History of pulmonary embolism 09/04/2018 08/31/2019 History of DVT (deep vein thrombosis) 09/04/2018 08/31/2019 Primary localized osteoarthr itis of right knee 08/22/2018 09/12/2018 Overview: Added automatically from request for surgery [id number] Primary osteoarthritis of left knee 05/03/2018 08/24/2018 Overview: Added automatically from request for surgery [id number] Anticoagulated on Coumadin 11/28/2016 0 08/31/2019 Imaging abnormality 10/20/2012 12/04/19 21 Heel spur 10/28/2011 12/03/2020 Paroxysmal supraventricular tachycardia 03/17/2011 04/07/2021 Overview: [facility], Dr Arana H/O: hematuria 05/12/2009 12/03/2020 Routine general medical exam ination at a health care facility 10/23/2008 11/11/2014 Overview: Creat 1.2 in 09-30 Empirically treated with Levaquin in 10-31 per Francoise/Asaf: CXR showed linear atelectasis, no CBC Obesity, Class III, 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 Plan: lifestyle modification Unspecified gastritis and ga stroduodenitis without mention of hemorrhage 10/17/2008 12/03/2020 Overview: Started PPI and checked H pylori in 09-30: consider issue of the K supplements (started about 2 wks prior to symptoms) H pylori positive in 09-30: started Prevpac (responded within 2 weeks) Paroxysmal atrial fibrillation 08/30/2008 04/07/2021 Overview: History Pre-op on coumadin/BB Assessment Asc aorta replacement+ Pulmonary vein isolation+ clipping of left atrial appendage with 45mm Atricure clip. Afib 09/05-DCC on 09/06. Remains in SR Plan BB/Amio . Dose daily Coumadin, mag ox. 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 Please read below carefully for your personalized instructions. Dietary Restrictions: - No solid food after midnight. - You may have 12 ounces of clear liquids (water, clear juices such as apple juice or gatorade, carbonated beverages, clear tea, black coffee, jello) until 2 hours before scheduled arrival at facility. Medications: Unless instructed differently below, stay on all of your medications until your surgery. If you start any new medications after today's visit, please contact your surgeon. Pre-Surgery Med Instructions Medication Instructions amLODIPine (NORVASC) 10 mg tablet Take the day of surgery with a small sip of water levothyroxine (SYNTHROID) 88 mcg tablet Take the day of surgery with a small sip of water amiodarone (PACERONE) 100 mg tablet Take the day of surgery with a small sip of water hydroCHLOROthiazide 12.5 mg tablet Do not take the day of surgery lisinopril (ZESTRIL, PRINIVIL) 10 mg tablet Do not take the day of surgery warfarin (COUMADIN) 5 mg tablet Stop 5 days before surgery latanoprost (XALATAN) 0.005 % ophthalmic solution Take the day of surgery with a small sip of water magnesium oxide (MAG-OX) 400 mg (241.3 mg magnesium) tablet Do not take the day of surgery therapeutic multivitamin (THERA VITAMIN) tablet Stop 7 days before surgery ezetimibe (ZETIA) 10 mg tablet Take the day of surgery with a small sip of water If you take any medications for erectile dysfunction-Cialis (Tadalafil), Levitra, Staxyn (Vardenafil) Viagra (Sildenenafil please do not take these for 48 hours before surgery. If you start any new medications after today's visit, please contact the surgeon's office. Blood Thinning Medications: - Stop NSAIDS (Ibuprofen, Advil, Aleve, Motrin, Celebrex, Mobic, etc.) 7 days before surgery, as directed by your surgeon. - Stop Aspirin 7 days before surgery, as directed by your surgeon. - Stop Coumadin 5 days before surgery or as directed by physician. - Stop Vitamin E, ALL multi-vitamins, herbals and dietary supplements 7 days before surgery. - You may take Tylenol (Acetaminophen) or any of your pain medications that do not contain aspirin or NSAIDS as needed. Important Reminders: - Candy, mints, and tobacco products are NOT permitted the morning of surgery. - Hearing aids, dentures and glasses may be worn the morning of surgery. - NO jewelry, body piercings, makeup, hairpins or contacts are to be worn the day of surgery. If you develop symptoms such as a fever, cold, or flu, or have other changes to your health within TWO DAYS of scheduled surgery or the morning of surgery, please contact the surgery center above. Personal Belongings: -Please have photo ID and insurance cards. -If you do not have a copy of advance directives on file with us, please bring a copy with you on the day of surgery. - Leave ALL valuables and money at home or with family members. For Outpatient Procedures: - YOU MUST HAVE A RESPONSIBLE PERSONAL BANKER TAKE YOU HOME. A BOAT OUTBOARD ENGINE MECHANIC OR ANTITANK ASSAULT GUNNER CANNOT BE MADE A RESPONSIBLE PERSONAL BANKER. - We recommend that a responsible person stays with you overnight to take care of you. - You cannot stay in a hotel alone after outpatient surgery. You will not be permitted to have yoursurgery, if you do not have someone to take care of you. Arrival Time for Surgery: - The Surgery Center or hospital where you are having surgery will call the afternoon before surgery (or Tuesday for Tuesday surgery) with a scheduled arrival time. - If you have not heard by 4 pm, please contact the surgery center above. Please be aware that emergency situations arise, which may delay or change your surgical time. If this happens, we will notify you as soon as possible and regret any inconvenience. If you already have an Advance Directive, please fax a copy to [phone] or email to for it to be added to your chart. If you do not have an Advance Directive, you can find the appropriate form and more information at [email or web address]. We recommend that youcomplete the Advance Directive form found on the website and bring it with you the day of your surgery. It can be witnessed and scanned into your chart that day. Bridgette Aguilera APRN.YAYA [facility] History and physical note * Bridgette Aguilera APRN.CNP - 04/08/2023 11:16 AM EDT Images from the original note were not included. HISTORY AND PHYSICAL EXAMINATION SERVICE DATE: 04/08/2023 SERVICE TIME: 6:24 AM PRIMARY CARE PHYSICIAN: Fartun Downs MD REASON FOR VISIT: Nitin Ochoa is a 78 year old male who is scheduled for Procedure(s): EXCISION SOFT TISSUE TUMOR SUB-Q OF BACK = / >3CM (Right) at the request of Dr. Matt Griffinfor consultation. My final recommendation will be communicated back to the requesting physician by way of shared medical record or letter. Subjective The patient has the following: ACTIVE PROBLEM LIST Hypertrophy of Prostate With Urinary Obstruction and Other Lower Urinary Tract Symptoms (Luts) Mixed Hyperlipidemia Osteoarthrosis, Unspecified Whether Generalized Or Localized, Other Specified Sites Essential Hypertension Bladder Neck Obstruction Hypothyroidism Umbilical Hernia Without Mention of Obstruction Or Gangrene Atherosclerosis of Coronary Artery of [place] Heart Without Angina Pectoris History of Pulmonary Embolism Hypercholesterolemia Class 2 Obesity With Body Mass Index (Bmi) of 39.0 to 39.9 in Adult Postherpetic neuralgia--left lower rib cage S/P Total Knee Replacement Status Post Ascending Aortic Aneurysm Repair Stress Hyperglycemia Stage 3a Chronic Kidney Disease (Hcc) Hypertensive Kidney Disease With Stage 3a Chronic Kidney Disease (Hcc) Aortic Root Dilatation (Hcc) COVID-19 Immunization Status Overdue - Covid-19 Vaccine (6 - Moderna series) Overdue since 09/05/2022 05/05/2022 Imm Admin: COVID-19 vaccine, age 12+ yr, bivalent (Q Chip-Ubi VideoNTWIB) 11/21/2021 Imm Admin: COVID-19 original vaccine, full dose, monovalent (MODERNA) 05/28/2021 Imm Admin: COVID-19 original vaccine, full dose, monovalent (MODERNA) Only the first 3 history entries have been loaded, but more history exists. CHIEF COMPLAINT: Pre-op exam HPI: Nitin Ochoa is a 78 year old seen for PAC due to scheduled above surgery because of a lipoma. 03/29/23, Dr. Griffin HPI: The patient is a 77 year old male with a complaint of subcutaneous lesion on his right upper back near his trapezoid. He has had this removed in the past. It is came back in the exact same area.It is gotten much larger than it did in the past. He is not experiencing any pain or discomfort from this.. REVIEW OF SYSTEMS: General: No weight loss, malaise or fevers. Neurological: No history of TIA's, stroke, SEARCH AND RESCUE OFFICER tumor, impaired sensorium, hemiplegia, paraplegia orquadraplegia. No neurological symptoms or problems. Respiratory: No history of current cough or dyspnea, or pneumonia in the past 6 weeks. No history of respiratory/pulmonary symptoms or problems. Cardiovascular: +aortic root dilation, s/p repair Positive for: anticoagulation therapy (Coumadin), atrial fibrillation (s/p ablation and s/p cardioversion, s/p clip), CAD, DVT/PE (DVT/PE provoked by traveling), hyperlipidemia, hypertension and murmur/valvular heart disease Patient's last office visit The following tests and/or procedures were not performed: cardiac stents. Negative for: arrhythmia, chest pain, CHF, congenital heart defect, recent HI, PVD, open heart surgery and valve surgery. GI: No history of GI symptoms or problems. No history of esophageal varices, recent ascites, or ETOH greater than 2 drinks per day. : Positive for: BPH (no rx) and decreased stream. Negative for: urinary incontinence, nephrolithiasis, renal failure and urinary tract infection. Endocrine: Positive for: hypothyroidism (on rx, recently levels extremely low, PCP adjusting dose). Negative for: diabetes mellitus. Hematology: Positive for: bruises/bleeds easily and chronic anti-coagulation/platelet meds. Patient is on anti-coagulation/platelet medication(s): Coumadin. Negative for: anemia and transfusion of at least 4 units within 72 hours prior to surgery. Oncology: BCC/SCC/Melanoma s/p excision, following [facility]: No history of psychiatric symptoms or problems. Musculoskeletal: Negative for joint pain or swelling, back pain or muscle pain. Skin: Negative for lesions, rash and itching. PAST MEDICAL HISTORY Diagnosis Date Abscess of anal and rectal regions Anticoagulated on Coumadin 11/28/2016 Dr. Walton managing cardiac issues now Diverticulosis of colon (without mention of hemorrhage) Dizziness and giddiness Hypothyroidism 04/07/2010 Lipoma of other skin and subcutaneous tissue Paroxysmal atrial fibrillation (HCC) 08/30/2008 History Pre-op on coumadin/BB Assessment Asc aorta replacement+ Pulmonary vein isolation+ clipping of left atrial appendage with 45mm Atricure clip. Afib 09/05-DCC on 09/06. Remains in SR Plan BB/Amio . Dose daily Coumadin, mag ox. Paroxysmal atrial fibrillation (HCC) 08/30/2008 History Pre-op on coumadin/BB Assessment Asc aorta replacement+ Pulmonary vein isolation+ clipping of left atrial appendage with 45mm Atricure clip. Afib 09/05-DCC on 09/06. Remains in SR Plan BB/Amio . Dose daily Coumadin, mag ox. Paroxysmal supraventricular tachycardia (HCC) 03/17/2011 [facility], Dr Arana PMH - PAST MEDICAL HISTORY OF glaucoma PMH - PAST MEDICAL HISTORY OF blood clots in lungs & legs Postherpetic neuralgia--left lower rib cage 08/24/2018 Primary osteoarthritis of left knee 05/03/2018 Added automatically from request for surgery [id number] Sebaceous cyst Unspecified essential hypertension PAST SURGICAL HISTORY Procedure Laterality Date APPENDECTOMY ARTHRP KNE CONDYLE&PLATU MEDIAL&LAT COMPARTMENTS Left 06/02/2018 Knee replacement, total ARTHRP KNE CONDYLE&PLATU MEDIAL&LAT COMPARTMENTS Right 09/11/2018 Knee replacement, total PAST SURGICAL HISTORY OF 10/11/02 left carpal tunnel PAST SURGICAL HISTORY OF cardiac ablation x 2 PAST SURGICAL HISTORY OF Right carpal tunnel release PAST SURGICAL HISTORY OF Bilateral cataract surgery RPR UMBILICAL HRNA 5 YRS/> REDUCIBLE 06/15/10 with mesh FAMILY HISTORY Problem Relation Age of Onset Stroke Father at 92 from stroke Hypertension Father Heart Attack Father unknown what age HI Hyperlipidemia Father Hypertension Mother at age 95 from age Hyperlipidemia Mother other (AFib) Mother Heart Paternal Uncle Social History Tobacco Use Smoking status: Former Packs/day: 1.50 Years: 4.00 Additional pack years: 0.00 Total pack years: 6.00 Types: Cigarettes Quit date: 07/25/1971 Years since quittin.7 Smokeless tobacco: Never Vaping Use Vaping Use: Never used Substance Use Topics Alcohol use: Yes Comment: 2 drinks a month Drug use: No Prior to Admission medications as of 04/08/23 1116 Medication Sig Last Dose Taking amLODIPine (NORVASC) 10 mg tablet Take 10 mg by mouth daily at bedtime. Taking Yes levothyroxine (SYNTHROID) 88 mcg tablet Take 1 tablet by mouth once daily. Taking Yes amiodarone (PACERONE) 100 mg tablet Take 1 tablet by mouth once daily. Taking Yes hydroCHLOROthiazide 12.5 mg tablet Take 1 tablet by mouth once daily. Taking Yes lisinopril (ZESTRIL, PRINIVIL) 10 mg tablet Take 10 mg by mouth twice daily. Taking Yes warfarin (COUMADIN) 5 mg tablet Taking Yes latanoprost (XALATAN) 0.005 % ophthalmic solution Use 1 Drop in both eyes daily at bedtime. Taking Yes magnesium oxide (MAG-OX) 400 mg (241.3 mg magnesium) tablet Take 1 tablet by mouth twice daily. Yes therapeutic multivitamin (THERA VITAMIN) tablet Take 1 tablet by mouth daily with breakfast. TakingYes ezetimibe (ZETIA) 10 mg tablet Take 1 tablet by mouth once daily. Patient taking differently: Take 10 mg by mouth daily at bedtime. Taking Yes Medication Comments documented by Reny Smiley [facility] on 09/10/2019 at 1247. 09/10/19 The medications are managed by this patient by: PATIENT Reny Smiley, PharmD ALLERGIES Allergen Reactions Levaquin [Levofloxa* Other: See Comments Reports nightmares Lipitor [Atorvastat* Myalgia stopped by Dr. Cates Lovastatin Other: See Comments muscle aches Pravastatin Other: See Comments muscle aches Simvastatin Other: See Comments muscle aches Zbnhrhg-Afu-Syf Red* Myalgia tried them all Ceftin [Cefuroxime] Diarrhea Objective PHYSICAL EXAM: General: alert and oriented (x3), healthy appearance and obese. Pertinent negatives noted - not distressed. Skin: normal color, no rash or lesions. HEENT: EOM intact and pupils equal round. Pertinent negatives noted - no carotid bruit. Cardiovascular: Pulse characterized as irregular. Respiratory: normal breath sounds, no wheezes or crackles. No chest wall deformity or tenderness. Abdomen: soft. Pertinent negatives noted - not tender. Extremities: no deformity, no edema or tenderness, no joint swelling or clubbing. Neurological: normal cognition and motor skills. Gait normal. No weakness or sensory deficit. PAIN ASSESSMENT: Pain Pain Level: 1 Pain Location: Neck Description: Stiffness Duration Units: Months Frequency: Intermittent VITALS: BP 120/82 Pulse 76 Temp (Src) 97.6 (Temporal) Resp 16 Ht 6' 4 (1.93m) Wt 319 lb (144.7kg) SpO2 96% BMI 38.85 kg/(m^2). Diagnostic tests reviewed for today's visit: Lab Value Units Date High Low HB 14.4 g/dL 04/08/2023 17.0 13.0 HCT 44.6 % 04/08/2023 51.0 39.0 WBC 4.70 k/uL 04/08/2023 11.00 3.70 PLT 229 k/uL 04/08/2023 400 150 NA 138 mmol/L 04/08/2023 144 136 K 4.1 mmol/L 04/08/2023 5.1 3.7 GLUC 85 mg/dL 04/08/2023 99 74 BUN 19 mg/dL 04/08/2023 24 9 CREAT 1.39 mg/dL 04/08/2023 1.22 0.73 PTSEC No results within date range. INR No results within date range. APTT No results within date range. ALT 18 U/L 04/08/2023 54 10 AST 20 U/L 04/08/2023 40 14 TBILI 1.4 mg/dL 04/08/2023 1.3 0.2 TSH 3.760 mIU/L 04/08/2023 4.200 0.270 Lab Value Units Date High Low HCGQT No results within date range. UHCG No results within date range. HCG, BODY* No results within date range. Lab Value Units Date High Low ABORHD No results within date range. ABSCREEN No results within date range. Hemoglobin A1C (%) Date Value 01/27/2023 5.8 12/08/2021 5.8 11/28/2020 5.8 08/29/2019 5.7 02/28/2019 5.5 05/22/2018 5.6 Recent Results (from the past 8760 hour(s)) ECG COMPLETE Collection Time: 04/08/23 12:07 PM Result Value Ventricular Rate 75 Atrial Rate 60 QRS Duration 94 QT Interval 412 QTC Calculation (Bazett) 460 Calculated R [place] 65 Calculated T [place] 15 Impression ATRIAL FIBRILLATION ABNORMAL ECG No results found for this or any previous visit (from the past 44303 hour(s)). Assessment Patient has the following medical conditions which may affect danilo-operative course: Status post ascending aortic aneurysm repair Assessment: s/p repair, following vascular Stage 3a chronic kidney disease (HCC) Assessment: Creatinine Date Value Ref Range Status 04/08/2023 1.39 (H) 0.73 - 1.22 mg/dL Final S/P total knee replacement Assessment: hx Mixed hyperlipidemia Assessment: c/w statin Hypothyroidism Assessment: controlled on rx TSH Date Value Ref Range Status 04/08/2023 3.760 0.270 - 4.200 mIU/L Final History of pulmonary embolism Assessment: hx DVT/PE, daily Coumadin, instructions given to hold 5 days prior to surgery, pt verbalized understanding. Atherosclerosis of coronary artery of [place] heart without angina pectoris Assessment: non-obstructing [facility] 201912/14/22 Dr. Walton, [facility] Scanned into Psychiatric Aortic root dilatation (HCC) Assessment: mild-moderate, under surveillance by cardiology Rojo Activity Status Index: METS: Climb a flight of stairs or walk up a hill (5.50 METs) DASI Score: 5.5 Patient denies any chest pain or undue shortness of breath with the above physical activity. Clinical Frailty Scale: 3. Well, with treated comorbid disease STOP-Bang Score: Snores loudly Has or is being treated for high blood pressure BMI greater than 35 kg/m^2 Patient over 50 years old Has a large neck Male patient Denies feeling tired, fatigued, or sleepy during the daytime Has not been observed to stop breathing or choking/gasping during sleep STOP-Bang Score: 6 [id number] Score: Age: >=75 Sex: male CHF history: No Hypertension history: Yes Stroke/TIA/thromboembolism history: No Vascular disease history: No Diabetes history: No [id number] Score: 3 ARISCAT Score: Age: 51-80 Preoperative SpO2: >=96% Respiratory infection in the last month: No Preoperative anemia: No Surgical incision: peripheral Duration of surgery: <2 hrs Emergency procedure: No ARISCAT Score: 3 ANESTHESIA FINDINGS: Intubation History: No history of difficult intubation Significant Anesthesia Considerations: none Airway History: No history of difficult airway I - PHYSICAL EVALUATION AIRWAY Patient intubated: No. Tracheostomy tube not present Mallampati: IV. TM distance: >3 FB. Neck ROM: full ROM without neurological symptoms. Mouth opening: adequate. Short neck: no. Additional comments: +TMJ dysfunction, R>L. Thick neck: yes Haque present: no Lip Bite Test: II Microretrognathia/Micronagthia/Recessed Chin: No DENTAL Dental findings: teeth intact. Additional comments: Crowns/back. II - ANESTHESIA PLAN Anesthetic Plan: other Anesthetic plan additional comments: *PACC/TCI - anesthesia choice. Beta Adam Monitoring Plan Post Procedure Analgesic Plan Informed Consent Anesthetic risks, benefits, alternatives, personnel and consent discussed: yes. Patient / Responsible Democrat agrees to proceed: yes Patient / Surrogate agrees to blood products: blood products not planned Discussed the possibility of lip / dental damage: yes Prepared for Surgery: optimally prepared for surgery, pending [see comment]. Labs and EKG CONSULTS: Patient does not require consults for optimization at this time Planned Anesthetic: other anesthesia choice The Following Tests/Procedures Have Been Initiated: Orders Placed This Encounter >CBC + AUTO DIFF Standing Status: Future Number of Occurrences: 1 Standing Expiration Date: 06/08/2023 >CMP Standing Status: Future Number of Occurrences: 1 Standing Expiration Date: 06/08/2023 TSH Blood Standing Status: Future Number of Occurrences: 1 Standing Expiration Date: 06/08/2023 amLODIPine (NORVASC) 10 mg tablet Sig: Take 10 mg by mouth daily at bedtime. ECG COMPLETE Standing Status: Future Number of Occurrences: 1 Standing Expiration Date: 04/08/2024 Instructions Given to Patient: Instructions located in the after visit summary. Patient given verbal and written preop instructions and voices comprehension and compliance. SIGNATURE: Bridgette Aguilera APRN.CNP PATIENT NAME: Nitin Ochoa DATE: April 08, 2023 TIME: 11:16 AM PAGER/CONTACT #: documented in this encounterBerger Hospital09-05-2023 NoteHNO ID: [id number] Author: Matt Griffin MD Service: ? Author Type: Physician Type: Progress Notes Filed: 03/30/2023 10:39 AM Note Text: HISTORY AND PHYSICAL Nitin Ochoa 1945 REFERRING PHYSICIAN: Fartun Downs MD CHIEF COMPLAINT: Consult (Lump on back of neck. ) HPI: The patient is a 77 year old male with a complaint of subcutaneous lesion on his right upper back near his trapezoid. He has had this removed in the past. It is came back in the exact same area. It is gotten much larger than it did in the past. He is not experiencing any pain or discomfort from this.. The patient is being seen by me today at the request of Dr. Fartun Downs MD for my opinion and advice regarding Lesion of subcutaneous tissue (primary encounter diagnosis). PAST MEDICAL HISTORY Diagnosis Date Abscess of anal and rectal regions Anticoagulated on Coumadin 11/28/2016 Dr. Walton managing cardiac issues now Diverticulosis of colon (without mention of hemorrhage) Dizziness and giddiness Hypothyroidism 04/07/2010 Lipoma of other skin and subcutaneous tissue Paroxysmal atrial fibrillation (HCC) 08/30/2008 History Pre-op on coumadin/BB Assessment . Asc aorta replacement+ Pulmonary vein isolation+ clipping of left atrial appendage with 45mm Atricure clip. Afib 09/05-DCC on 09/06. Remains in SR Plan BB/Amio . Dose daily Coumadin, mag ox. Paroxysmal atrial fibrillation (HCC) 08/30/2008 History Pre-op on coumadin/BB Assessment . Asc aorta replacement+ Pulmonary vein isolation+ clipping of left atrial appendage with 45mm Atricure clip. Afib /12-DCC on 09/06. Remains in SR Plan BB/Amio . Dose daily Coumadin, mag ox. Paroxysmal supraventricular tachycardia (HCC) 03/17/2011 [facility], Dr Arana PMH - PAST MEDICAL HISTORY OF glaucoma PMH - PAST MEDICAL HISTORY OF blood clots in lungs AND legs Postherpetic neuralgia--left lower rib cage 08/24/2018 Primary osteoarthritis of left knee 05/03/2018 Added automatically from request for surgery [id number] Sebaceous cyst Unspecified essential hypertension PAST SURGICAL HISTORY Procedure Laterality Date APPENDECTOMY ARTHRP KNE CONDYLEANDPLATU MEDIALANDLAT COMPARTMENTS Left 06/02/2018 Knee replacement, total ARTHRP KNE CONDYLEANDPLATU MEDIALANDLAT COMPARTMENTS Right 09/11/2018 Knee replacement, total PAST SURGICAL HISTORY OF 10/11/02 left carpal tunnel PAST SURGICAL HISTORY OF cardiac ablation x 2 PAST SURGICAL HISTORY OF Right carpal tunnel release PAST SURGICAL HISTORY OF Bilateral cataract surgery RPR UMBILICAL HRNA 5 YRS/> REDUCIBLE 06/15/10 with mesh Current Outpatient Medications Medication Sig levothyroxine (SYNTHROID) 88 mcg tablet Take 1 tablet by mouth once daily. amiodarone (PACERONE) 100 mg tablet Take 1 tablet by mouth once daily. hydroCHLOROthiazide 12.5 mg tablet Take 1 tablet by mouth once daily. amLODIPine (NORVASC) 5 mg tablet Take 10 mg by mouth once daily. lisinopril (ZESTRIL, PRINIVIL) 10 mg tablet Take 10 mg by mouth twice daily. warfarin (COUMADIN) 5 mg tablet latanoprost (XALATAN) 0.005 % ophthalmic solution Use 1 Drop in both eyes daily at bedtime. magnesium oxide (MAG-OX) 400 mg (241.3 mg magnesium) tablet Take 1 tablet by mouth twice daily. therapeutic multivitamin (THERA VITAMIN) tablet Take 1 tablet by mouth daily with breakfast. ezetimibe (ZETIA) 10 mg tablet Take 1 tablet by mouth once daily. No current facility-administered medications for this visit. ALLERGIES: Levaquin [Levofloxacin], Lipitor [Atorvastatin], Lovastatin, Pravastatin, Simvastatin, Dmmawxo-Rev-Seu Reductase Inhibitors, and Ceftin [Cefuroxime] PERSONAL HISTORY: Social History Tobacco Use Smoking status: Former Packs/day: 1.50 Years: 4.00 Additional pack years: 0.00 Total pack years: 6.00 Types: Cigarettes Quit date: 07/25/1971 Years since quittin.7 Smokeless tobacco: Never Vaping Use Vaping Use: Never used Substance Use Topics Alcohol use: Yes Comment: 2 drinks a month Drug use: No FAMILY HISTORY: FAMILY HISTORY Problem Relation Age of Onset Stroke Father at 92 from stroke Hypertension Father Heart Attack Father unknown what age HI Hyperlipidemia Father Hypertension Mother at age 95 from age Hyperlipidemia Mother other (AFib) Mother Heart Paternal Uncle REVIEW OF SYMPTOMS: The review of systems data was entered by the nurse and reviewed by me Nursing Notes: Aury Ibrahim RN 03/29/2023 9:49 AM Signed REVIEW OF SYSTEMS: General: The patient denies fatigue, denies weight loss, denies weight gain, denies feeling hot, and denies feelings of cold. Eyes: The patient NOTES glaucoma, NOTES eye injury/surgery, does not wear glasses or contacts. Ear/Nose/Throat: The patient NOTES allergies, denies hayfever, denies ear infections, and denies bloody noses. Cardiovascular: The patient denies chest pain, denies heart disease, (more content not included)...[facility]07-21-2023 Miscellaneous Notes* Telephone Encounter - Fartun Downs MD - 02/11/2023 2:01 AM EDT Component Latest Ref Rng & Units 04/20/2021 12/08/2021 01/27/2023 TSH 0.270 - 4.200 mIU/L 5.970 (H) 3.650 0.097 (L) Free T4 0.9 - 1.7 ng/dL 1.5 1.5 1.8 (H) Free T3 2.3 - 4.1 pg/mL 2.3 2.3 2.9 Await his reply. Will file order as needed if needed. * Telephone Encounter - Jojo Gonzalez OCCA - 02/01/2023 1:51 PM EDT Please see patient message regarding recent lab results and advise. Thank you. JOSSUE Johnson documented in this encounterBerger Hospital06-28-2023 Miscellaneous Notes* Telephone Encounter - Marium Carbajal LPN - 01/19/2023 11:28 AM EDT SPOUSE'S APPT HAS BEEN ARRANGED * Telephone Encounter - Karen Emery LPN - 01/17/2023 1:55 PM EDT Forwarded to PSS to call patient to schedule appointment. Karen Emery LPN * Telephone Encounter - Fartun Downs MD - 01/17/2023 12:46 AM EDT Okay for to establish with me There are openings in my schedule this week * Telephone Encounter - Beatriz Mejia LPN - 01/03/2023 12:20 PM EDT Last office visit note has not been completed and does not indicate that she agreed to see patient's . * Telephone Encounter - Beatriz Mejia LPN - 12/28/2022 11:[address] Downs please confirm this is correct. documented in this encounterBerger Hospital05-31-2023 Miscellaneous Notes* Telephone Encounter - Marium Carbajal LPN - 12/22/2022 2:57 PM EDT Seen pcp 12/22/22. * Telephone Encounter - Marium Carbajal LPN - 12/16/2022 2:09 PM EDT Rec'd labs from [facility] from Dr. Walton for pcp to review. They have been printed and in the POD for review. documented in this encounterBerger Hospital05-31-2023 NoteHNO ID: [id number] Author: Fartun Downs MD Service: ? Author Type: Physician Type: Progress Notes Filed: 01/16/2023 10:46 PM Note Text: This note was created using TennisHub[employer]. Subjective Nitin Ochoa is a 77 year old male. Patient presents with: Established Patient: Discuss recent labs including TSH SUBJECTIVE: Nitin Ochoa is a 77 year old year old gentleman here today for follow up appointment for review of medical conditions. TSH 0.01 on 12/14 a [facility]. Last year was 3.650 with T4 1.5 and T3 2.3 Heart is in a fib now--started at beginning of the year. Cardioverted last fall but back in a fib. Had successful weight loss with changes in diet and increased exercise. Noted swelling in legs--was tried on furosemide but had bad dreams. Was acting out in his sleep. Moving in sleep, Depression Screening 12/04/2020 12/08/2021 12/19/2022 12/22/2022 PHQ-2 Score 0 0 0 0 PHQ-9 Score 0 - 1 - Depression screening tool completed and reviewed. Based on score and interview, patient is not at risk for depression. Screening tool discussed with patient, and I recommended no further intervention at this time. PAST MEDICAL HISTORY Diagnosis Date Abscess of anal and rectal regions Anticoagulated on Coumadin 11/28/2016 Dr. Walton managing cardiac issues now Diverticulosis of colon (without mention of hemorrhage) Dizziness and giddiness Hypothyroidism 04/07/2010 Lipoma of other skin and subcutaneous tissue Paroxysmal atrial fibrillation (HCC) 08/30/2008 History Pre-op on coumadin/BB Assessment 2. Asc aorta replacement+ Pulmonary vein isolation+ clipping of left atrial appendage with 45mm Atricure clip. Afib 09/05-DCC on 09/06. Remains in SR Plan BB/Amio . Dose daily Coumadin, mag ox. Paroxysmal atrial fibrillation (HCC) 08/30/2008 History Pre-op on coumadin/BB Assessment 2.7 Asc aorta replacement+ Pulmonary vein isolation+ clipping of left atrial appendage with 45mm Atricure clip. Afib 09/05-DCC on 09/06. Remains in SR Plan BB/Amio . Dose daily Coumadin, mag ox. Paroxysmal supraventricular tachycardia (HCC) [facility] - PAST MEDICAL HISTORY OF glaucoma [facility] - PAST MEDICAL HISTORY OF blood clots in lungs AND legs Postherpetic neuralgia--left lower rib cage 08/24/2018 Primary osteoarthritis of left knee 05/03/2018 Added automatically from request for surgery [id number] Sebaceous cyst Unspecified essential hypertension Current Outpatient Medications Medication Sig hydroCHLOROthiazide 12.5 mg tablet Take 1 tablet by mouth once daily. amLODIPine (NORVASC) 5 mg tablet Take 10 mg by mouth once daily. lisinopril (ZESTRIL, PRINIVIL) 10 mg tablet Take 10 mg by mouth twice daily. levothyroxine (SYNTHROID) 112 mcg tablet Take 1 tablet by mouth once daily. warfarin (COUMADIN) 5 mg tablet amiodarone (PACERONE) 200 mg tablet Take 1 tablet by mouth once daily. (Patient taking differently: Take 100 mg by mouth once daily.) latanoprost (XALATAN) 0.005 % ophthalmic solution Use 1 Drop in both eyes daily at bedtime. acetaminophen (TYLENOL) 325 mg tablet Take 2 tablets by mouth every 4 hours as needed for Pain (for mild pain). magnesium oxide (MAG-OX) 400 mg (241.3 mg magnesium) tablet Take 1 tablet by mouth twice daily. therapeutic multivitamin (THERA VITAMIN) tablet Take 1 tablet by mouth daily with breakfast. ezetimibe (ZETIA) 10 mg tablet Take 1 tablet by mouth once daily. benzonatate (TESSALON PERLES) 100 mg capsule Take 1 capsule by mouth three times daily as needed for cough. metoprolol succinate ER (TOPROL XL) 50 mg 24 hr tablet Take 1 tablet by mouth twice daily. aspirin(ADULT ASPIRIN EC LOW STRENGTH 81 MG TAB, DELAYED RELEASE) Take one(1) tablet daily. No current facility-administered medications for this visit. Review of Systems Objective BP 112/72 Pulse 67 Temp 36.3 ?C (97.3 ?F) Resp 18 Wt (!) 142.9 kg (315 lb) SpO2 98% BMI 38.34 kg/m? Physical Exam Vitals reviewed. Constitutional: Appearance: Normal appearance. Eyes: Conjunctiva/sclera: Conjunctivae normal. Cardiovascular: Rate and Rhythm: Normal rate and regular rhythm. Heart sounds: Normal heart sounds. Pulmonary: Effort: Pulmonary effort is normal. Breath sounds: Normal breath sounds. Musculoskeletal: Right lower le+ Pitting Edema present. Left lower le+ Pitting Edema present. Skin: General: Skin is warm and dry. Neurological: General: No focal deficit present. Mental Status: He is alert and oriented to person, place, and time. Psychiatric: Mood and Affect: Mood normal. Behavior: Behavior normal. Thought Content: Thought content normal. Judgment: Judgment normal. Assessment and Plan Encounter Diagnosis ICD-10-CM 1. Acquired hypothyroidism E03.9 T4 FREE/FREE THYROX T3 FREE BLD TSH BLD TSH suppressed; could contribute to staying in a fib. Levothyroxine dose decreased. Continue to (more content not included)...[facility] 10-21-2022 NotePatient Outreach (NETNAV) NITIN OCHOA ([id number]) 1945 M Date Time Provider Department 10/21/22 KAREN SERVIN ([facility]) NETNAV During your visit today, we recorded the following information about you: Karen Servin [facility] 10/21/2022 3:04 PM Signed POPULATION HEALTH NAVIGATION OUTREACH Action/: HCC's 10/21/22 Patient is on HCC list and needs appointment to address below gaps: Diagnosis with HCC gap left: E66.01 - Morbid (severe) obesity due to excess calories [employer] Care Gaps to Address: PCP follow up Medicare Wellness (PCP is booking out in 2023) Flu vaccine Outcomes: Left message on voice mail and sent [employer] message. Patient Identified by Name and : NO Outreach Outcome/Action Unable to reach patient: Left message En[employer] System[employer]art message sent Did you use a PCP flex slot to schedule this appointment? N/A Reason for Outreach HCC or suspected condition Payer: Payor: [employer] MEDICARE / Plan: [employer] MEDICARE PPO / Product Type: PPO / Care Gap Reviewed:: Annual Wellness visit Follow-up appointment Flu Vaccine Reminder: Reminder note to check Health Maintenance for items below Health Maintenance items due: LDL CHOLESTEROL due on 11/28/2021 COVID-19 VACCINE(5 - Booster for Moderna series) due on 01/16/2022 INFLUENZA(1) due on 03/25/2022 ADVANCE DIRECTIVE DISCUSSION due on 07/25/2022 DEPRESSION ASSESSMENT Never done Navigation Signature: Karen Servin Population Health Navigator October 21, 2022 9:06 AM Allergies As of Date: 10/21/2022 Noted Allergy Reaction LEVAQUIN (LEVOFLOXACIN) 08/24/2013 14 - Other: See Comments Comments: Reports nightmares LIPITOR (ATORVASTATIN) 11/05/2015 17 - Myalgia Comments: stopped by Dr. Cates LOVASTATIN 02/18/2014 14 - Other: See Comments Comments: muscle aches PRAVASTATIN 02/18/2014 14 - Other: See Comments Comments: muscle aches SIMVASTATIN 02/18/2014 14 - Other: See Comments Comments: muscle aches [id number] REDUCTASE INHIBIT*11/05/2015 17 - Myalgia Comments: tried them all CEFTIN (CEFUROXIME) 02/22/2011 6 - Diarrhea Date Reviewed: 12/08/2021 Reviewed by: Lisbeth Alvarado Ma - Fully Assessed Reason for Visit: Population Health Navigation Outreach [[id number]] Cmt: [facility]'s Prescriptions as of 10/21/2022 - benzonatate (TESSALON PERLES) 100 mg capsule Take 1 capsule by mouth three times daily as needed for cough. - amLODIPine (NORVASC) 5 mg tablet Take 10 mg by mouth once daily. - lisinopril (ZESTRIL, PRINIVIL) 10 mg tablet Take 10 mg by mouth twice daily. - levothyroxine (SYNTHROID) 112 mcg tablet Take 1 tablet by mouth once daily. - warfarin (COUMADIN) 5 mg tablet - amiodarone (PACERONE) 200 mg tablet Take 1 tablet by mouth once daily. - latanoprost (XALATAN) 0.005 % ophthalmic solution Use 1 Drop in both eyes daily at bedtime. - acetaminophen (TYLENOL) 325 mg tablet Take 2 tablets by mouth every 4 hours as needed for Pain (for mild pain). - magnesium oxide (MAG-OX) 400 mg (241.3 mg magnesium) tablet Take 1 tablet by mouth twice daily. - therapeutic multivitamin (THERA VITAMIN) tablet Take 1 tablet by mouth daily with breakfast. - metoprolol succinate ER (TOPROL XL) 50 mg 24 hr tablet Take 1 tablet by mouth twice daily. - ezetimibe (ZETIA) 10 mg tablet Take 1 tablet by mouth once daily. - aspirin(ADULT ASPIRIN EC LOW STRENGTH 81 MG TAB, DELAYED RELEASE) Take one(1) tablet daily. 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9] 04/07/2010 Umbilical hernia without mention of obstruction*05/01/2010 Paroxysmal supraventricular tachycardia (HCC) [*03/17/2011 04/07/2021 Atherosclerosis of coronary artery of [place] he*03/17/2011 History of pulmonary embolism [Z86.711] 03/17/2011 Heel spur [M77.30] 10/28/2011 12/03/2020 Hypercholesterolemia [E78.00] 04/25/2012 Imaging abnormality [R93.89] 10/20/2012 12/03/2020 Anticoagulated on Coumadin [Z79.01] 11/28/2016 08/31/2019 Primary osteoarthritis of left knee [M17.12] 05/03/2018 08/24/2018 Class 2 obesity with body mass index (BMI) of 3*06/03/2018 Primary localized osteoarthritis of right knee *08/22/ (more content not included)...[facility]03-30-2023 NoteHNO ID: [id number] Author: Karen Martin Service: ? Author Type: ? Type: Progress Notes Filed: 10/21/2022 3:04 PM Note Text: POPULATION HEALTH NAVIGATION OUTREACH Action/FYI: HCC's 10/21/22 Patient is on HCC list and needs appointment to address below gaps: Diagnosis with HCC gap left: E66.01 - Morbid (severe) obesity due to excess calories [employer] Care Gaps to Address: PCP follow up Medicare Wellness (PCP is booking out in 2023) Flu vaccine Outcomes: Left message on voice mail and sent [employer] message. Patient Identified by Name and : NO Outreach Outcome/Action Unable to reach patient: Left message MyChart message sent Did you use a PCP flex slot to schedule this appointment? N/A Reason for Outreach HCC or suspected condition Payer: Payor: T MEDICARE / Plan: [employer] MEDICARE PPO / Product Type: PPO / Care Gap Reviewed:: Annual Wellness visit Follow-up appointment Flu Vaccine Reminder: Reminder note to check Health Maintenance for items below Health Maintenance items due: LDL CHOLESTEROL due on 11/28/2021 COVID-19 VACCINE(5 - Booster for Moderna series) due on 01/16/2022 INFLUENZA(1) due on 03/25/2022 ADVANCE DIRECTIVE DISCUSSION due on 07/25/2022 DEPRESSION ASSESSMENT Never done Navigation Signature: Karen Servin Population Health Navigator October 21, 2022 9:06 [facility]03-30-2023 History of Present illness Narrative* Karen Servin Pss - 10/21/2022 9:06 AM EDT POPULATION HEALTH NAVIGATION OUTREACH Action/FYI: HCC's 10/21/22 Patient is on HCC list and needs appointment to address below gaps: Diagnosis with HCC gap left: E66.01 - Morbid (severe) obesity due to excess calories [employer] Care Gaps to Address: PCP follow up Medicare Wellness (PCP is booking out in 2023) Flu vaccine Outcomes: Left message on voice mail and sent MyChart message. Patient Identified by Name and : NO Outreach Outcome/Action Unable to reach patient: Left message [employer] Systemshart message sent Did you use a PCP flex slot to schedule this appointment? N/A Reason for Outreach HCC or suspected condition Payer: Payor: YONI MEDICARE / Plan: AETNA MEDICARE PPO / Product Type: PPO / Care Gap Reviewed:: Annual Wellness visit Follow-up appointment Flu Vaccine Reminder: Reminder note to check Health Maintenance for items below Health Maintenance items due: LDL CHOLESTEROL due on 11/28/2021 COVID-19 VACCINE(5 - Booster for Moderna series) due on 01/16/2022 INFLUENZA(1) due on 03/25/2022 ADVANCE DIRECTIVE DISCUSSION due on 07/25/2022 DEPRESSION ASSESSMENT Never done Navigation Signature: Karen Servin Population Health Navigator October 21, 2022 9:06 AM documented in this encounterBerger Hospital08-10-2022 Instructions* Patient Instructions* Fartun Downs MD - 03/03/2022 4:56 PM EDT FACT SHEET FOR PATIENTS, PARENTS, AND CAREGIVERS EMERGENCY USE AUTHORIZATION (EUA) OF PAXLOVID FOR CORONAVIRUS DISEASE 2019 (COVID-19) You are being given this Fact Sheet because your healthcare provider believes it is necessary to provide you with PAXLOVID for the treatment of qrfu-dz-rcymalri coronavirus disease (COVID-19) caused by the SARS-CoV-2 virus. This Fact Sheet contains information to help you understand the risks and benefits of taking the PAXLOVID you have received or may receive. The U.S. Food and Drug Administration (FDA) has issued an Emergency Use Authorization (EUA) to makePAXLOVID available during the COVID-19 pandemic (for more details about an EUA please see What is an Emergency Use Authorization? at the end of this document). PAXLOVID is not an FDA-approved medicine in the [place]. Read this Fact Sheet for information about PAXLOVID. Talk to your healthcareprovider about your options or if you have any questions. It is your choice to take PAXLOVID. What is COVID-19? COVID-19 is caused by a virus called a coronavirus. You can get COVID-19 through close contact withanother person who has the virus. COVID-19 illnesses have ranged from very aneo-ds-auojye, including illness resulting in . While information so far suggests that most COVID-19 illness is mild, serious illness can happen and maycause some of your other medical conditions to become worse. Older people and people of all ages with severe, long lasting (chronic) medical conditions like heart disease, lung disease, and diabetes,for example seem to be at higher risk of being hospitalized for COVID-19. What is PAXLOVID? PAXLOVID is an investigational medicine used to treat scbs-he-czrnfisa COVID-19 in adults and children [12 years of age and older weighing at least 88 pounds (40 kg)] with positive results of direct SARS-CoV-2 viral testing, and who are at high risk for progression to severe COVID-19, including hospitalization or . PAXLOVID is investigational because it is still being studied. There is limited information about the safety and effectiveness of using PAXLOVID to treat people with fcbb-du-xzuddmhd COVID-19. The FDA has authorized the emergency use of PAXLOVID for the treatment of fhtt-rz-mmcistbu COVID-19in adults and children [12 years of age and older weighing at least 88 pounds (40 kg)] with a positive test for the virus that causes COVID-19, and who are at high risk for progression to severe COVID-19, including hospitalization or , under an EUA. 1 Revised: 09 October 2021 What should I tell my healthcare provider before I take PAXLOVID? Tell your healthcare provider if you: Have any allergies Have liver or kidney disease Are or plan to become Are a child Have any serious illnesses Tell your healthcare provider about all the medicines you take, including prescription and dfmw-hhx-gajvdlt medicines, vitamins, and herbal supplements. Some medicines may interact with PAXLOVID and may cause serious side effects. Keep a list of your medicines to show your healthcare provider and pharmacist when you get a new medicine. You can ask your healthcare provider or pharmacist for a list of medicines that interact with PAXLOVID. Do not start taking a new medicine without telling your healthcare provider. Your healthcare provider can tell you if it is safe to take PAXLOVID with other medicines. Tell your healthcare provider if you are taking combined hormonal contraceptive. PAXLOVID may affect how your control pills work. Females who are able to become should use another effective alternative form of contraception or an additional barrier method of contraception. Talk to your healthcare provider if you have any questions about contraceptive methods thatmight be right for you. How do I take PAXLOVID? PAXLOVID consists of 2 medicines: nirmatrelvir and ritonavir. Take 2 pink tablets of nirmatrelvir with 1 white tablet of ritonavir by mouth 2 times each day (in the morning and in the evening) for 5 days. For each dose, take all 3 tablets at the same time. If you have kidney disease, talk to your healthcare provider. You may need a different dose. Swallow the tablets whole. Do not chew, break, or crush the tablets. Take PAXLOVID with or without food. Do not stop taking PAXLOVID without talking to your healthcare provider, even if you feel better. If you miss a dose of PAXLOVID within 8 hours of the time it is usually taken, take it as soon as you remember. If you miss a dose by more than 8 hours, skip the missed dose and take the next dose atyour regular time. Do not take 2 doses of PAXLOVID at the same time. If you take too much PAXLOVID, call your healthcare provider or go to the nearest hospital emergency room right away. If you are taking a ritonavir-or cobicistat-containing medicine to treat hepatitis C or Human Immunodeficiency Virus (HIV), you should continue to take your medicine as prescribed by your healthcare provider. Talk to your healthcare provider if you do not feel better or if you feel worse after 5 days. Who should generally not take PAXLOVID? Do not take PAXLOVID if: You are allergic to nirmatrelvir, ritonavir, or any of the ingredients in PAXLOVID You are taking any of the following medicines: Alfuzosin Pethidine, propoxyphene Ranolazine Amiodarone, dronedarone, flecainide, propafenone, quinidine Colchicine Lurasidone, pimozide, clozapine Dihydroergotamine, ergotamine, methylergonovine Lovastatin, simvastatin Sildenafil (Revatio ) for pulmonary arterial hypertension (PAH) Triazolam, oral midazolam Apalutamide Carbamazepine, phenobarbital, phenytoin Rifampin [place] Wort (hypericum perforatum) Taking PAXLOVID with these medicines may cause serious or life-threatening side effects or affect how PAXLOVID works. These are not the only medicines that may cause serious side effects if taken with PAXLOVID. PAXLOVID may increase or decrease the levels of multiple other medicines. It is very important to tell your healthcare provider about all of the medicines you are taking because additional laboratory tests or changes in the dose of your other medicines may be necessary while you are taking PAXLOVID. Your healthcare provider may also tell you about specific symptoms to watch out for that may indicate that you need to stop or decrease the dose of some of your other medicines. What are the important possible side effects of PAXLOVID? Possible side effects of PAXLOVID are: Allergic Reactions. Allergic reactions can happen in people taking PAXLOVID, even after only 1 dose. Stop taking PAXLOVID and call your healthcare provider right away if you get any of the following symptoms of an allergic reaction: hives trouble swallowing or breathing swelling of the mouth, lips, or face throat tightness hoarseness skin rash Liver Problems. Tell your healthcare provider right away if you have any of these signs and symptoms of liver problems: loss of appetite, yellowing of your skin and the whites of eyes (jaundice), dark-colored urine, pale colored stools and itchy skin, stomach area (abdominal) pain. Resistance to HIV Medicines. If you have untreated HIV infection, PAXLOVID may lead to some HIV medicines not working as well in the future. Other possible side effects include: altered sense of taste diarrhea high blood pressure muscle aches These are not all the possible side effects of PAXLOVID. Not many people have taken PAXLOVID. Serious and unexpected side effects may happen. PAXLOVID is still being studied, so it is possible that all of the risks are not known at this time. What other treatment choices are there? Veklury (remdesivir) is FDA-approved for the treatment of pwxo-yx-msaszeil COVID-19 in certain adults and children. Talk with your doctor to see if Veklury is appropriate for you. Like PAXLOVID, FDA may also allow for the emergency use of other medicines to treat people with COVID-19. Go to https://www.fda.gov/kysybmnfy-redgkkwnawtd-rnrxplchhju/imd-cqhfp-kiolcjbpgt-and- policy-framework/tibqykzqn-vxm-pxxjkwhdotuej for information on the emergency use of other medicines that are authorized by FDA to treat people with COVID-19. Your healthcare provider may talk with you aboutclinical trials for which you may be eligible. It is your choice to be treated or not to be treated with PAXLOVID. Should you decide not to receive it or for your child not to receive it, it will not change your standard medical care. What if I am or ? There is double end tenon operator treating women or mothers with PAXLOVID. For a motherand unborn baby, the benefit of taking PAXLOVID may be greater than the risk from the treatment. Ifyou are , discuss your options and specific situation with your healthcare provider. It is recommended that you use effective barrier contraception or do not have sexual activity whiletaking PAXLOVID. If you are , discuss your options and specific situation with your healthcare provider. How do I report side effects with PAXLOVID? Contact your healthcare provider if you have any side effects that bother you or do not go away. Report side effects to FDA MedWatch at www.fda.gov/medwatch or call 3-689-ECP3853 or you can reportside effects to [employer]. at the contact information provided below. Website Fax number Telephone number [employer] How should I store PAXLOVID? Store PAXLOVID tablets at room temperature, between 68?F to 77?F (20?C to 25?C). How can I learn more about COVID-19? Ask your healthcare provider. Visit https://www.cdc.gov/COVID19. Contact your local or state public health department. What is an Emergency Use Authorization (EUA)? The [place] FDA has made PAXLOVID available under an emergency access mechanism called an Emergency Use Authorization (EUA). The EUA is supported by a [place] of Health and Human Service (HHS) declaration that circumstances exist to justify the emergency use of drugs and biological productsduring the COVID-19 pandemic. PAXLOVID for the treatment of dnka-xj-rmnjpwjf COVID-19 in adults and children [12 years of age andolder weighing at least 88 pounds (40 kg)] with positive results of direct SARS-CoV-2 viral testing, and who are at high risk for progression to severe COVID-19, including hospitalization or , has not undergone the same type of review as an FDA-approved product. In issuing an EUA under the COVID-19 public health emergency, the FDA has determined, among other things, that based on the total amount of scientific evidence available including data from adequate and well-controlled clinical trials, if available, it is reasonable to believe that the product may be effective for diagnosing, treating, or preventing COVID-19, or a serious or life-threatening disease or condition caused by COVID-19; that the known and potential benefits of the product, when used to diagnose, treat, or prevent such disease or condition, outweigh the known and potential risks of such product; and that there are no adequate, approved, and available alternatives. All of these criteria must be met to allow for the product to be used in the treatment of patients during the COVID-19 pandemic. The EUA for PAXLOVID is in effect for the duration of the COVID-19 declaration justifying emergency use of this product, unless terminated or revoked (after which the products may no longer be used under the EUA). Additional Information For general questions, visit the website or call the telephone number provided below. Website Telephone number [employer] ([phone]) You can also go to [email or web address] or call for more information. [employer] Distributed by [employer] [place] [place] [address] [id number] Revised: 09 October 2021 Fact Sheet for Patients And Caregivers Emergency Use Authorization (EUA) Of Molnupiravir For Coronavirus Disease 2019 (COVID-19) What is the most important information I should know about molnupiravir? Molnupiravir may cause serious side effects, including: Molnupiravir may cause harm to your unborn baby. It is not known if molnupiravir will harm your baby if you take molnupiravir during . Molnupiravir is not recommended for use in . Molnupiravir has not been studied in . Molnupiravir was studied in animals only. When molnupiravir was given to animals, molnupiravir caused harm to their unborn babies. You and your healthcare provider may decide that you should take molnupiravir during if there are no other COVID-19 treatment options authorized by the FDA that are accessible or clinicallyappropriate for you. If you and your healthcare provider decide that you should take molnupiravir during , you and your healthcare provider should discuss the known and potential benefits and the potential risksof taking molnupiravir during . For individuals who are able to become : You should use a reliable method of control (contraception) consistently and correctly duringtreatment with molnupiravir and for 4 days after the last dose of molnupiravir. Talk to your healthcare provider about reliable control methods. Before starting treatment with molnupiravir your healthcare provider may do a test to seeif you are before starting treatment with molnupiravir. Tell your healthcare provider right away if you become or think you may be duringtreatment with molnupiravir. Surveillance Program: There is a surveillance program for individuals who take molnupiravir during . The purpose of this program is to collect information about the health of you and your baby. Talk to your healthcare provider about how to take part in this program. If you take molnupiravir during and you agree to participate in the surveillance program and allow your healthcare provider to share your information with [employer],then your healthcare provider will report your use of molnupiravir during to [employer]. by calling or Pregnancyreporting.[employer]. For individuals who are sexually active with partners who are able to become : It is not known if molnupiravir can affect sperm. While the risk is regarded as low, animal studies to fully assess the potential for molnupiravir to affect the babies of males treated with molnupiravir have not been completed. A reliable method of control (contraception) should be used consistently and correctly during treatment with molnupiravir and for at least 3 months after thelast dose. The risk to sperm beyond 3 months is not known. Studies to understand the risk to sperm beyond 3 months are ongoing. Talk to your healthcare provider about reliable control methods. Talk to your healthcare provider if you have questions or concerns about how molnupiravir may affectsperm. You are being given this fact sheet because your healthcare provider believes it is necessary to provide you with molnupiravir for the treatment of adults with bfjd-zh-mvhaeija coronavirus disease 2019 (COVID-19) with positive results of direct SARS-CoV-2 viral testing, and who are at high risk forprogressing to severe COVID-19 including hospitalization or , and for whom other COVID-19 treatment options authorized by the FDA are not accessible or clinically appropriate. The [place]. Food and Drug Administration (FDA) has issued an Emergency Use Authorization (EUA) to makemolnupiravir available during the COVID-19 pandemic (for more details about an EUA please see What is an Emergency Use Authorization? at the end of this document). Molnupiravir is not an FDA-approved medicine in the [place]. Read this Fact Sheet for information about molnupiravir. Talk to your healthcare provider about your options if you have any questions. It is your choice to take molnupiravir. What is COVID-19? COVID-19 is caused by a virus called a coronavirus. You can get COVID-19 through close contact withanother person who has the virus. COVID-19 illnesses have ranged from very mlna-bm-objlrx, including illness resulting in . While information so far suggests that most COVID-19 illness is mild, serious illness can happen and maycause some of your other medical conditions to become worse. Older people and people of all ages with severe, long lasting (chronic) medical conditions like heart disease, lung disease and diabetes, for example seem to be at higher risk of being hospitalized for COVID-19. What is molnupiravir? Molnupiravir is an investigational medicine used to treat vifo-gz-ulbobedg COVID-19 in adults: with positive results of direct SARS-CoV-2 viral testing, and who are at high risk for progressing to severe COVID-19 including hospitalization or , and for whom other COVID-19 treatment optionsauthorized by the FDA are not accessible or clinically appropriate. The FDA has authorized the emergency use of molnupiravir for the treatment of mild-tomoderate COVID-19 in adults under an EUA. For more information on EUA, see the What is an Emergency Use Authorization (EUA)? section at the end of this Fact Sheet. Molnupiravir is not authorized: for use in people less than 18 years of age. for prevention of COVID-19. for people needing hospitalization for COVID-19. for use for longer than 5 consecutive days. What should I tell my healthcare provider before I take molnupiravir? Tell your healthcare provider if you: Have any allergies Are or plan to breastfeed Have any serious illnesses Are taking any medicines (prescription, ehtk-mjx-smsagvd, vitamins, or herbal products). How do I take molnupiravir? Take molnupiravir exactly as your healthcare provider tells you to take it. Take 4 capsules of molnupiravir every 12 hours (for example, at 8 am and at 8 pm) Take molnupiravir for 5 days. It is important that you complete the full 5 days of treatment with molnupiravir. Do not stop taking molnupiravir before you complete the full 5 days of treatment, even if you feel better. Take molnupiravir with or without food. You should stay in isolation for as long as your healthcare provider tells you to. Talk to your healthcare provider if you are not sure about how to properly isolate while you have COVID-19. Swallow molnupiravir capsules whole. Do not open, break, or crush the capsules. If you cannot swallow capsules whole, tell your healthcare provider. What to do if you miss a dose: If it has been less than 10 hours since the missed dose, take it as soon as you remember If it has been more than 10 hours since the missed dose, skip the missed dose and take your dose atthe next scheduled time. Do not double the dose of molnupiravir to make up for a missed dose. What are the important possible side effects of molnupiravir? Possible side effects of molnupiravir are: See, What is the most important information I should know about molnupiravir? diarrhea nausea dizziness These are not all the possible side effects of molnupiravir. Not many people have taken molnupiravir. Serious and unexpected side effects may happen. This medicine is still being studied,so it is possible that all of the risks are not known at this time. What other treatment choices are there? Like molnupiravir, FDA may allow for the emergency use of other medicines to treat people with COVID-19. Go to https://www.fda.gov/waiasombv-jgwkrxtztbgn-zdz-response/rmz-zzsbgsopixiraff-mmd- policy-framework/qhyhnlvph-ell-egtazbiiuyxur for more information. It is your choice to be treated or not to be treated with molnupiravir. Should you decide not to take it, it will not change your standard medical care. What if I am ? is not recommended during treatment with molnupiravir and for 4 days after the last dose of molnupiravir. If you are or plan to breastfeed, talk to your healthcare provider about your options and specific situation before taking molnupiravir. How do I report side effects with molnupiravir? Contact your healthcare provider if you have any side effects that bother you or do not go away. Report side effects to FDA MedWatch at www.fda.gov/medwatch or call 0-555-IQO-6594 ( ). How should I store molnupiravir? Store molnupiravir capsules at room temperature between 68 F to 77 F (20 C to 25 C). Keep molnupiravir and all medicines out of the reach of children and pets. How can I learn more about COVID-19? Ask your healthcare provider. Visit www.cdc.gov/COVID19 Contact your local or state public health department. Call [employer] at (toll free in the [place] Visit www.Wirescan What Is an Emergency Use Authorization (EUA)? The [place] FDA has made molnupiravir available under an emergency access mechanism called an Emergency Use Authorization (EUA) The EUA is supported by a [employer] of Health and Human Service (HHS) declaration that circumstances exist to justify emergency use of drugs and biological products during the COVID-19 pandemic. Molnupiravir for the treatment of atti-yg-cxizvrpy COVID-19 in adults with positive results of direct SARS-CoV-2 viral testing, who are at high risk for progression to severe COVID-19, including hospitalization or , and for whom alternative COVID-19 treatment options authorized by FDA are not accessible or clinically appropriate, has not undergone the same type of review as an FDA- approved product. In issuing an EUA under the COVID-19 public health emergency, the FDA has determined, among other things, that based on the total amount of scientific evidence available including data from adequate and well-controlled clinical trials, if available, it is reasonable to believe that the product may be effective for diagnosing, treating, or preventing COVID-19, or a serious or life-threatening disease or condition caused by COVID19; that the known and potential benefits of the product, when used to diagnose, treat, or prevent such disease or condition, outweigh the known and potential risks of such product; and that there are no adequate, approved, and available alternatives. All of these criteria must be met to allow for the product to be used in the treatment of patients during the COVID-19 pandemic. The EUA for molnupiravir is in effect for the duration of the COVID-19declaration justifying emergency use of molnupiravir, unless terminated or revoked (after which molnupiravir may no longer be used under the EUA). For patent information: www.BrightNest/research/patent Copyright 2020 [employer] [place], [facility] and its affiliates. All rights reserved. [id number] Issued: 07/16/2021 Resources for Managing Anxiety During COVID Crisis https://www.virusanxiety.com https://www.cdc.gov/coronavirus/2019-ncov/prepare/esdjyiiz-futakk-fjxwjbp.html https://coronavirus.[place].gov/wps/portal/gov/covid-19/home/resources/resources-fo q-liqyxo-bbfjxb-xnba-tel-ohuru-19-pandemic www.ImageProtect.com/us/blog/svq-kehsy-zknmkeprrvmh//ogy-lbfllq-dlxlpdx irus-anxiety https://www.psychologyDouble Fusion.Boond/us/blog/rss-owgoo-ctkugfy//89-pjmn-nbbykrr xy-iioo-qsjcpqzjdy-now https://www.Vital [employer]rapies/us/blog/experimentations//3-xumgeazibrm-ni ukfkbcivg-leppenbemo-hpzedtwvf How to Protect Yourself & Others from COVID-19 Wash your hands often Wash your hands often with soap and water for at least 20 seconds especially after you have been angle public place, or after blowing your nose, coughing, or sneezing. If soap and water are not readily available, use a hand weather strip installer that contains at least 60% alcohol. Cover all surfaces of your hands and rub them together until they feel dry. Avoid touching your eyes, nose, and mouth with unwashed hands. Avoid close contact Inside your home: Avoid close contact with people who are sick. If possible, maintain 6 feet between the person who is sick and other household members. Outside your home: Put 6 feet of distance between yourself and people who don't live in your household. Cover your mouth and nose with a mask when around others Masks help prevent you from getting or spreading the virus. You could spread COVID-19 to others even if you do not feel sick. Everyone should wear a mask in public settings and when around people who don't live in your household, especially when other social distancing measures are difficult to maintain. Masks should not be placed on young children under age 2, anyone who has trouble breathing, or is unconscious, incapacitated or otherwise unable to remove the mask without assistance. Cover coughs and sneezes Always cover your mouth and nose with a tissue when you cough or sneeze or use the inside of your elbow and do not spit. Throw used tissues in the trash. Immediately wash your hands with soap and water for at least 20 seconds. Clean and disinfect Clean AND disinfect frequently touched surfaces daily. This includes tables, doorknobs, light switches, countertops, handles, desks, phones, keyboards, toilets, faucets, and sinks. Monitor Your Health Daily Be alert for symptoms. Watch for fever, cough, shortness of breath, or other symptoms of COVID-19. Especially important if you are running essential errands, going into the office or workplace, and in settings where it may be difficult to keep a physical distance of 6 feet. Take your temperature if symptoms develop. Don't take your temperature within 30 minutes of exercising or after taking medications that could lower your temperature, like acetaminophen. Travel Skip events that put you in contact with large groups of people (sporting events, concerts, theme sam, etc). Avoid unnecessary domestic and international travel, including travel through large international airports. If traveling, wipe down your airplane seat (and tray) with a disinfecting wipe. Office Visits If you have a fever, cough or shortness of breath, or are otherwise concerned you have COVID-19, weask that you do not come to any [facility] facility without calling your primary care physician or speaking to a provider using a virtual visit using [facility] [employer]. You will be evaluated to determine if you require being seen in person or if you meet CDC guidelines for testing for COVID-19 based on symptoms, travel and exposures. If you meet criteria for testing, your [facility] provider or primary care physician will advise how to proceed with testing Immunosuppression There is no need to stop your immunosuppressive medications preemptively. If you become sick, please let your doctor know, and discuss with them prior to stopping any medications. At this point, we have no knowledge that patients on immunosuppressive medications are at higher risk of COVID-19 infection. People with weakened immune systems are at higher risk of getting severely sick from SARS-CoV-2, the virus that causes COVID-19. They may also remain infectious for a longer period of time than others with COVID-19, but we cannot confirm this until we learn more about this new virus. Steps You Can Take to Protect Your Health Continue your regular treatment plan. Don't stop any medications or treatments without talking to your doctor. Discuss any concerns about your treatment with your doctor. Keep your regularly scheduled medical appointments. Talk to your doctor about steps they are taking to reduce risk of exposure to COVID-19 in the office. Use telehealth services whenever possible if recommended by your doctor. Ensure that you are getting necessary tests prescribed by your doctor. Seek urgent medical care if you are feeling unwell. Talk to your doctor, insurer, and pharmacist about getting an emergency supply of prescription medications. Make sure you have at least 30 days of prescription medications, thvg-hvm-nhcyhna medicines, and supplies on hand in case you need or want to stay home for several weeks. Talk to your doctor or pharmacist about ways to receive your medications by mail. Take steps to care for your emotional health. Fear and anxiety about COVID-19 can be overwhelming and cause strong emotions. It is natural to feel concerned or stressed about COVID-19. - Learn more about stress and coping with anxiety here. Call your healthcare provider if stress gets in the way ofyour daily activities for several days in a row. If you are feeling overwhelmed with emotions like sadness, depression, or anxiety, or feel like youwant to harm yourself or others: Call [phone] if you feel like you want to harm yourself or others Visit the Disaster Distress Helpline call , [place] [address] Visit the [employer] Domestic Violence Hotline or call and TTY Visit the National Suicide Prevention Lifeline or call and TTY or text Most importantly, don't panic. By following basic prevention measures such as hand hygiene and cover your cough, you are helping to keep yourself and others healthy. Additional information can be found on the CDC and [facility] web sites: https://www.cdc.gov/coronavirus/2019-nCoV/index.html https://[facility].org/coronavirus Beginning Home Isolation Isolation is used to separate people infected with SARS-CoV-2, the virus that causes COVID-19, frompeople who are not infected. People who are in isolation should stay home until it s safe for them to be around others. In the home, anyone sick or infected should separate themselves from others by staying in a specific sick room or area and using a separate bathroom (if available). Isolation or Quarantine: What's the difference? Quarantine keeps someone who might have been exposed to the virus away from others. Isolation keeps someone who is infected with the virus away from others, even in their home. Who needs to isolate People who have COVID-19 People who have symptoms of COVID-19 and are able to recover at home People who have no symptoms (are asymptomatic) but have tested positive for infection with SARS-CoV-2 Steps to take Stay home except to get medical care Monitor your symptoms. Stay in a separate room from other household members, if possible Use a separate bathroom, if possible Avoid contact with other members of the household and pets Don t share personal household items, like cups, towels, and utensils Wear a mask when around other people, if you are able to When to seek emergency medical attention Look for emergency warning signs* for COVID-19. If someone is showing any of these signs, seek emergency medical care immediately: Trouble breathing Persistent pain or pressure in the chest New confusion Inability to wake or stay awake Bluish lips or face *This list is not all possible symptoms. Please call your medical provider for any other symptoms that are severe or concerning to you. Call 911 or call ahead to your local emergency facility: Notify the capacitor pack press operator that you are seeking care for someone who has or may have COVID-19. Ending Home Isolation - When you can be around others after you had or likely had COVID-19 When you can be around others after you had or likely had COVID-19 If You Test Positive for COVID-19 (Isolation) Everyone, regardless of vaccination status: Stay home for 5 days. Note: Day 0 is your first day of symptoms or the date of collection of a positive viral test if no symptoms. Day 1 is the first full day after symptoms developed or test specimen was collected. If you have no symptoms or your symptoms are resolving after 5 days, you can leave your house. Continue to wear a mask around others for 5 additional days. If you have a fever, continue to stay home until your fever resolves, even if it is longer than 5 days. If You Were Exposed to Someone with COVID-19 (Quarantine) If you: 1. Have been boosted OR 2. Completed the primary series of Pfizer or Moderna vaccine within the last 6 months OR 3. Completed the primary series of J&J vaccine within the last 2 months THEN: 1. Wear a mask around others for 10 days. 2. Test on day 5, if possible. If you develop symptoms get a test and stay home. If You Were Exposed to Someone with COVID-19 (Quarantine) If you: 1. Completed the primary series of Pfizer or Moderna vaccine over 6 months ago and are not boosted OR 2. Completed the primary series of J&J over 2 months ago and are not boosted OR 3. Are unvaccinated THEN: 1. Stay home for 5 days. After that continue to wear a mask around others for 5 additional days. 2. If you can't quarantine you must wear a mask for 10 days. 3. Test on day 5 if possible. If you develop symptoms get a test and stay home. I had COVID-19 or I tested positive for COVID-19 and I have a weakened immune system If you have a weakened immune system (immunocompromised) due to a health condition or medication, you might need to stay home and isolate longer than 10 days. Talk to your healthcare provider for more information. Your doctor may work with an infectious disease expert at your local health department to determinewhen you can be around others. How to Manage Common Symptoms Associated with COVID for Adults Fever- Fever is a temperature over 100.4 F and can occur when the body is fighting an infection. Tohelp treat a fever: Drink plenty of fluids and stay well hydrated. Eat small amounts of easy to digest food. Rest. Your body needs rest to recover, but getting up and moving around the house frequently is a good idea. You should try to continue doing your normal daily activities (bathing, toileting, grooming, cooking), though you will probably feel tired, and need to rest often. Avoid any heavy activity or exercise, as this will increase your body temperature. Dress in light clothing and stay covered in a light sheet. Keep the room temperature cool. Take a slightly warm (not cold or cool) bath, or apply damp washcloths to the forehead and wrists. Cough- Cough is a common symptom associated with COVID and can be bothersome. To help treat a cough: Stay well hydrated. Try warm water or tea with lemon and/or honey to help soothe the cough. Use a humidifier to add moisture to the air. Try a product with menthol, like a cough drop or a rub for your chest such as Vicks, which can helpreduce cough. Try cough drops. Avoid smoking and other strong odors or perfumes. Try breathing exercises to keep your lungs open and clear. Take a big deep breath through your noseand hold for 5 seconds before slowly releasing. Repeat frequently, while you are awake. Congestion- Runny nose or nasal congestion can occur with COVID. Treatment can help relieve symptoms: Try OTC nasal saline spray, or nasal saline rinse to relieve mucus congestion. Nasal strips can help keep nasal passages open, to increase airflow. Elevating your head with an extra pillow in bed can help reduce congestion. Using a humidifier can increase moisture in the air, and make breathing easier. Sore Throat- Another common symptom with COVID, can be managed at home by: Stay well hydrated. Gargle with salt water - mix teaspoon salt with 1 cup of warm water and gargle. This helps to loosen mucus in the back of the throat and may reduce discomfort. Try ice chips, popsicles or lozenges to soothe the throat. Nausea/Vomiting/Diarrhea- These are common symptoms, and staying hydrated is most important. If you are nauseous or vomiting, start with small sips of water every 10-15 minutes and increase astolerated. You can try sucking an ice cube too. If tolerating, you can try pedialyte or Gatorade, or flat sprite or mellissa-camden. Start slowly and increase as you are able to. Instead of meals, try smaller, more frequent snacks. Try eating bland foods like crackers, toast, rice, and applesauce. Avoid spicy, greasy or fried foods and dairy containing foods. Even if you aren't feeling hungry due to lack of smell or taste, it is important to try to take in some food when you are able. After drinking and eating, rest in an upright position for up to two hours as needed to help decrease nauseous feelings. Try closing your eyes, avoid moving and watching TV. Avoid strong odors that can make you feel more nauseated. When to seek emergency medical attention Look for emergency warning signs for COVID-19. If having any of these symptoms, seek emergency medical care immediately: Trouble breathing Persistent pain or pressure in the chest New confusion Inability to wake or stay awake Bluish lips or face *This list is not all possible symptoms. Please call your medical provider for any other symptoms that are severe or concerning to you. [facility] History of Present illness Narrative* Fartun Downs MD - 03/03/2022 4:45 PM EDT Telemedicine Evaluation for COVID-19 Infection MyChart video visit was used for evaluation of this patient. Location of patient: [place] RUBENS Ochoa is a 76 year old male who presents with 2 days of symptoms that are worsening cough; rest of symptoms same. Home test for COVID was negative yesterday and today was positive. Would like to start Paxlovid or other antiviral as indicated. Discussed that is asymptomatic; reviewed quarantine and isolation recommendations. Symptoms include: Fever (?100.4F): No or Chills: No Cough: Yes Shortness of breath: No or Difficulty breathing: No Fatigue: Yes--mild Muscle aches: Yes Headache: Yes New loss of smell or taste: No Sore throat: Yes--mild Nasal congestion: Yes or Rhinorrhea: Yes Nausea: No or Vomiting: No Diarrhea: No OTC meds/remedies that patient has tried: acetaminophen and Mucinex DM. High risk category assessment Age > 60 years old Hypertension Exposures: Sick contacts? No Family or close contacts with confirmed/probable COVID-19 in last 14 days? No He reports that he quit smoking about 50 years ago. His smoking use included cigarettes. He has a 6.00 pack-year smoking history. He has never used smokeless tobacco. OBJECTIVE VIDEO EXAM (if available) Self-reported heart rate: 64 GENERAL: Ill-appearing, but non-toxic HEENT: no conjunctival injection, pupils equal, moist mucous membranes, oropharynx clear without erythema, sinuses non-tender to self-palpation, and palpable cervical adenopathy PULMONARY: breathing comfortably on room air , coughing, and no wheezing noted ASSESSMENT/PLAN (U07.1) COVID-19 virus infection (primary encounter diagnosis) (R05.9) Cough (N18.31) Stage 3a chronic kidney disease (HCC) (I10) Essential hypertension - Discussed symptom monitoring and supportive care - Red flag symptoms requiring follow up discussed Nirmatrelvir/Ritonavir (Paxlovid) Eligibility and Patient Discussion [facility] Formulary Restriction Criteria: Adult outpatients 18 years and older with ALL of the following: [x] Patient has positive SARS-COV-2 viral test (PCR or antigen test) during current illness [x] Patient has symptoms for 5 days or less [x] Not requiring hospitalization at any time for management of COVID-19 [x] Not requiring supplemental oxygen or a change in baseline supplemental oxygen [x] Not utilized for pre-exposure or post-exposure prophylaxis for prevention of COVID-19 [x] Patient does not have severe renal impairment (eGFR < 30 mL/min) or severe hepatic impairment (Child-Acuña Class C) [x] Meeting at least one of the criteria for high risk of progression to severe COVID-19: [x] Age over 65 years [] Cancer [] Chronic kidney disease [] Chronic liver disease [] Chronic lung diseases, including cystic fibrosis [] Dementia or other neurological conditions [] Diabetes (type 1 or type 2) [] Disabilities, including Down syndrome and neurodevelopmental disorders [x] Heart conditions--Hypertension [] HIV infection [] Immunocompromised state [] Mental health conditions [] Medical related technological dependence (tracheostomy, gastrostomy, or positive pressure ventilation (not related to COVID) [] Overweight and obesity (BMI greater or equal to 25 for adults) [] Physical inactivity [] [] Sickle cell disease or thalassemia [] Smoking, current or former [] Solid organ or blood stem cell transplant [] Stroke or cerebrovascular disease [] Substance use disorders [] Tuberculosis [] People from racial and ethnic minority groups Criteria above are met: Yes Date of Positive Test:03/03/22 Date of Symptom Onset: 03/01/22 Patient received COVID vaccine: Yes Drug-Drug interactions reviewed: Yes. No drug interactions were identified. for Molnupiravir. Amiodarone is contraindication for Paxlovid. I have discussed the use of the investigational therapeutic, nirmatrelvir/ritonavir, for the treatment of mild to moderate COVID-19 and its use under Emergency Use Authorization with the patient. The patient was informed that nirmatrelvir/ritonavir is not an FDA approved drug and that it is authorized for use under this Emergency Use Authorization. The patient was also informed of the significant known benefits and potential risks of nirmatrelvir/ritonavir, and the extent to which such potential risks and benefits are unknown. The patient was informed that there is mandatory reporting of all medication errors and serious adverse events potentially related to nirmatrelvir/ritonavir treatment within 7 calendar days from the onset of the event and that events up to 28 days after completion of therapy need to be reported. The discussion included alternatives to receiving nirmatrelvir/rit onavir, including clinical trials, and potential the risks and benefits of those alternatives. The patient was provided electronically with the Fact Sheet for Patients, Parents and Caregivers . The patient was also instructed that in addition to the treatment with nirmatrelvir/ritonavir, he/she should continue to self-isolate and use infection control measures (e.g., wear mask, isolate, social distance, avoid sharing personal items, clean and disinfect high touch surfaces, and frequent h andwashing) according to CDC guidelines. The patient stated understanding and gave verbal consent to proceeding with nirmatrelvir/ritonavir treatment. Fartun Downs MD March 03, 2022 4:54 PM ASSESSMENT/PLAN: 1. COVID-19 virus infection - ICD9: 079.89, ICD10: U07.1 (primary diagnosis) Further evaluation and treatment as indicated. - MOLNUPIRAVIR 200 MG CAPSULE (EUA)--sent to [facility] Home Delivery since not available in [facility]. - CODEINE 10 MG-GUAIFENESIN 100 MG/5 ML ORAL LIQUID 2. Cough - ICD9: 786.2, ICD10: R05.9 - BENZONATATE 100 MG CAPSULE - CODEINE 10 MG-GUAIFENESIN 100 MG/5 ML ORAL LIQUID 3. Stage 3a chronic kidney disease (HCC) - ICD9: 585.3, ICD10: N18.31 eGFR 45 on last labs 4. Essential hypertension - ICD9: 401.9, ICD10: I10 - good control - Continue current medication(s) - Goal of BP <130/80 5. PAF--on amiodarone--reason cannot take Paxlovid. Fartun Downs MD Additional Medical Conditions Last edited 03/03/22 16:45 EDT by Fartun Downs MD This patient encounter involved the screening or treatment of novel coronavirus infection (COVID-19). documented [facility] Miscellaneous Notes* Telephone Encounter - Aleida Harrell RN - 03/03/2022 2:48 PM EDT Patient calls to report that he tested positive for Covid 19 yesterday 03/02/2022 on an at home Covidtest. Symptoms started on Tuesday03/01/2022. Symptoms include: cough with yellow mucus, hoarse, sore throat, sinus/head congestion. Denies SOB, fever, chills, nausea, vomiting, diarrhea, muscle aches, or fatigue. Fully vaccinated. Patient asking for provider recommendation for anti-viral medication. VV scheduled. Aleida Harrell RN documented in this encounterBer[facility]08-[facility]22 Evaluation note* Diagnosis COVID-19 virus infection- Primary Cough Stage 3a chronic kidney disease (HCC) Essential hypertension Unspecified essential hypertension PAF (paroxysmal atrial fibrillation) (HCC) Atrial fibrillation documented in this encounter [facility] History of Present illness Narrative* Fartun Downs MD - 12/08/2021 9:31 AM EDT This note was created using [employer]. Subjective Nitin Ochoa is a 76 year old male. Patient presents with: F/U 6 months SUBJECTIVE: Nitin Ochoa is a 76 year old year old gentleman here today for 6 month follow up appointment for review of medical conditions. Right hand skin issue-about 1 year--started out as a small sore and turned into scaly lesion not healing. Dry skin on legs noted. Needs to drink more water. PAST MEDICAL HISTORY Diagnosis Date Abscess of anal and rectal regions Anticoagulated on Coumadin 11/28/2016 Dr. Walton managing cardiac issues now Diverticulosis of colon (without mention of hemorrhage) Dizziness and giddiness Hypothyroidism 04/07/2010 Lipoma of other skin and subcutaneous tissue Paroxysmal atrial fibrillation (HCC) 08/30/2008 History Pre-op on coumadin/BB Assessment Asc aorta replacement+ Pulmonary vein isolation+ clipping of left atrial appendage with 45mm Atricure clip. Afib 09/05-DCC on 09/06. Remains in SR Plan BB/Amio . Dose daily Coumadin, mag ox. Paroxysmal atrial fibrillation (HCC) 08/30/2008 History Pre-op on coumadin/BB Assessment 2./7 Asc aorta replacement+ Pulmonary vein isolation+ clipping of left atrial appendage with 45mm Atricure clip. Afib 09/05-DCC on 09/06. Remains in SR Plan BB/Amio . Dose daily Coumadin, mag ox. Paroxysmal supraventricular tachycardia (HCC) 03/17/2011 [facility], Dr Arana PMH - PAST MEDICAL HISTORY OF glaucoma PMH - PAST MEDICAL HISTORY OF blood clots in lungs & legs Postherpetic neuralgia--left lower rib cage 08/24/2018 Primary osteoarthritis of left knee 05/03/2018 Added automatically from request for surgery [id number] Sebaceous cyst Unspecified essential hypertension Current Outpatient Medications Medication Sig amLODIPine (NORVASC) 5 mg tablet Take 10 mg by mouth once daily. lisinopril (ZESTRIL, PRINIVIL) 10 mg tablet Take 10 mg by mouth twice daily. levothyroxine (SYNTHROID) 112 mcg tablet Take 1 tablet by mouth once daily. warfarin (COUMADIN) 5 mg tablet amiodarone (PACERONE) 200 mg tablet Take 1 tablet by mouth once daily. (Patient taking differently:Take 100 mg by mouth once daily. ) latanoprost (XALATAN) 0.005 % ophthalmic solution Use 1 Drop in both eyes daily at bedtime. acetaminophen (TYLENOL) 325 mg tablet Take 2 tablets by mouth every 4 hours as needed for Pain (formild pain). magnesium oxide (MAG-OX) 400 mg (241.3 mg magnesium) tablet Take 1 tablet by mouth twice daily. therapeutic multivitamin (THERA VITAMIN) tablet Take 1 tablet by mouth daily with breakfast. ezetimibe (ZETIA) 10 mg tablet Take 1 tablet by mouth once daily. aspirin(ADULT ASPIRIN EC LOW STRENGTH 81 MG TAB, DELAYED RELEASE) Take one(1) tablet daily. metoprolol succinate ER (TOPROL XL) 50 mg 24 hr tablet Take 1 tablet by mouth twice daily. No current facility-administered medications for this visit. Review of Systems Objective BP 102/64 Pulse 68 Wt (!) 149.2 kg (329 lb) BMI 40.05 kg/m Last 5 Encounter Wt Readings: Date: Wt: 12/08/2021 149.2 kg (329 lb) 12/04/2020 148.8 kg (328 lb) 05/05/2020 145.2 kg (320 lb) 09/19/2019 138.8 kg (306 lb) 09/12/2019 141.5 kg (312 lb) No waist measurement recorded Estimated body mass index is 40.05 kg/m as calculated from the following: Height as of 09/19/19: 193 cm (6' 4 ). Weight as of this encounter: 149.2 kg (329 lb). Last 5 Encounter BP Readings: Date: BP: 12/08/2021 102/64 12/04/2020 118/78 05/05/2020 124/60 09/19/2019 108/64 09/12/2019 110/76 Physical Exam Vitals reviewed. Constitutional: Appearance: Normal appearance. Eyes: Conjunctiva/sclera: Conjunctivae normal. Cardiovascular: Rate and Rhythm: Normal rate and regular rhythm. Heart sounds: Normal heart sounds. Pulmonary: Effort: Pulmonary effort is normal. Breath sounds: Normal breath sounds. Skin: General: Skin is warm and dry. Neurological: General: No focal deficit present. Mental Status: He is alert and oriented to person, place, and time. Psychiatric: Mood and Affect: Mood normal. Behavior: Behavior normal. Thought Content: Thought content normal. Judgment: Judgment normal. Assessment and Plan Encounter Diagnosis ICD-10-CM 1. Acquired hypothyroidism E03.9 TSH BLD T4 FREE/FREE THYROX T3 FREE BLD 2. Essential hypertension I10 COMP METABOLIC PANEL CBC 3. Stage 3a chronic kidney disease (HCC) N18.31 COMP METABOLIC PANEL CBC 4. Elevated hemoglobin A1c R73.09 COMP METABOLIC PANEL HGB A1C 5. Prostate cancer screening Z12.5 PSA/PROSTSPECAG SCRN 6. Hypercholesterolemia E78.00 Labs done ta [facility] for Dr. Walton 7. 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 Medication management Z79.899 MAGNESIUM BLD ASSESSMENT/PLAN: 1. Acquired hypothyroidism - ICD9: 244.9, ICD10: E03.9 (primary diagnosis) Labs today Adjust dose as indicated - TSH BLD - T4 FREE/FREE THYROX - T3 FREE BLD 2. Medication management - ICD9: V58.69, ICD10: Z79.899 - MAGNESIUM BLD 3. Essential hypertension - ICD9: 401.9, ICD10: I10 - good control - Continue current medication(s) - Recommended regular aerobic exercise. - Recommend home blood pressure monitoring, to bring results in on next visit - Goal of BP <130/80 - COMP METABOLIC PANEL - CBC 4. Stage 3a chronic kidney disease (HCC) - ICD9: 585.3, ICD10: N18.31 Continue present management. Encouraged to stay hydrated - COMP METABOLIC PANEL - CBC 5. Elevated hemoglobin A1c - ICD9: 790.29, ICD10: R73.09 Needs to keep working on diet and exercise with lifestyle changes for effective weight loss as wellas prevention of DM, and control of BP and lipids. - COMP METABOLIC PANEL - HGB A1C 6. Prostate cancer screening - ICD9: V76.44, ICD10: Z12.5 - PSA/PROSTSPECAG SCRN 7. Hypercholesterolemia - ICD9: 272.0, ICD10: E78.00 Further evaluation and treatment as indicated. 8. Skin lesion - ICD9: 709.9, ICD10: L98.9 Follow with chain testing machine operator for skin lesion on hand Fartun Downs [facility] of Past illness Narrative* Problem Noted Date Resolved Date Transition of care performed with sharing of clinical summary 09/05/2019 01/03/2020 Overview: Indication for Surgery: AF/Asc aorta aneurysm Preop LVEF: 60% RVF: Normal Postop LVEF: Normal RVF: Normal CARDS Wassif EKG afib mild cad Important/Relevant PMH/PSH: AF (BB/Coumadin).DVT/PE(Coumadin). hypothyroid, HTN. mild non obstructive CAD. CKD Stage 3 (baseline Scr 1.3) Preoperative Hospital Course: Airway Difficulty: Grade I - Glidescope (planned) d/t body habitus Pacing Wires: : Pulled 09/03 Chronological List of Surgeries and Major Events 08/31/2019: Asc aorta replacement+ Pulmonary vein isolation+ clipping of left atrial appendage with 45mm Atricure clip Uncomplicated OR course A/P of Major Active Problems Resp Extubated NOS; NC; wean o2,pep,oob CV HTN; cont BB. Amio for afib Renal CKD/FVO, Scr below baseline, Follow UOP/Renal Fx, cont diuresis Endo: SSI To Do or to Watch: Coumadin for AF/PE, dose daily, INR 2.0 afib RVR - mag, amio, BB--DCC 09/06 to SR rash bilat groin area- hydrocort lotion- improved Slight elevation in tbili 1.4- aymptomatic- stable CTA - showed sm PE - US of bilat LE negative for DVT Coumadin as pre op - pt has own machine from [place]. [facility] F2F placed. DC home with [facility] 09/08/19. Discharge Planning: Anticipated Discharge Date: 09/08 Barriers to Discharge: No Barriers to Discharge Care Management Discharge Needs: Needs Prior to Discharge: Procedure Atelectasis 08/31/2019 01/03/2020 Overview: History Elective Glidescope with Grade 1 view d/t body habitus Assessment on RA Plan C/DB,pep,oob Postoperative hypovolemia 08/31/20192019 Overview: History Post op Plan PRN IVF replacement Hyperbilirubinemia 08/30/2019 08/31/2019 Overview: Bilirubin, Total 2.0 08/30/2019 Bilirubin, Total 1.8 08/28/2019 Bilirubin, Total 1.7 07/10/2019 Bilirubin, Total 1.8 02/28/2019 Bilirubin, Total 1.6 11/10/2016 Discharge planning issues 08/27/20192020 Overview: This is a 74 y/o male from [place], [place] here for OHS. DC home with [facility] 09/08/19. Pre-op testing 08/27/2019 01/03/2020 Overview: [facility] Surgeon: Cleveland Reyes M.D. Informed Consent Completed: yes STS Score: unsupported CAD: No Is intended procedure a CABG: No - is a beta adam ordered? No - reason: H & P completed: Yes PA/LAT: Completed CT: Completed no f/u for adrenal gland per Christa check list MRI: N/A LE US: N/A Cath: completed EKG: Completed Is patient on Amiodarone? No Echo:Completed EF %: 61% PI's: N/A Carotid: N/A Mapping: N/A Dental: Completed PFT's: Completed UA: abn HCG:N/A ABO/ABO Confirmed: Yes Blood ordered: No SA Swab: Yes - results: neg Last Dose of Anticoagulation: coumadin 08/25/2019 Op Note: No Pacemaker Check: N/A Implants: no Consults: DM: No Cardiac Surgical prep: Yes will be instructed to take AD to j 1 1 SIGNATURE: Fer Callahan RN DATE of SERVICE: 08/27/2019 TIME of SERVICE: 9:31 AM CHECKED BY: Meli Garay APRN.SULFUR CHLORIDE OPERATOR August 30, 2019 1:14 PM History of pulmonary embolism 09/04/2018 History of DVT (deep vein thrombosis) 09/04/2018 08/31/2019 Primary localized osteoarthritis of right knee 0 08/22/2018 09/12/2018 Overview: Added automatically from request for surgery [id number] Primary osteoarthritis of left knee 05/03/2018 08/24/2018 Overview: Added automatically from request for surgery [id number] Anticoagulated on Coumadin 11/28/201608/31 Imaging abnormality 10/20/2012 12/03/2020 Heel spur 10/28/2011 12/03/2020 Paroxysmal supraventricular tachycardia 03/17/20 11 04/07/2021 Overview: [facility], Dr Arana H/O: hematuria 05/12/2009 12/03/2020 Routine general medical exam ination at a health care facility 10/23/2008 11/11/2014 Overview: Creat 1.2 in 09-30 Empirically treated with Levaquin in 10-31 per Francoise/Asaf: CXR showed linear atelectasis, no CBC Obesity, Class III, BMI 40-49.9 (morbid obesity) 10/17/2008 01/03/2020 Overview: History: poa Assessment: Body mass index is 37.52 kg/m . Plan: lifestyle modification Unspecified gastritis and ga stroduodenitis without mention of hemorrhage 10/17/2008 12/03/2020 Overview: Started PPI and checked H pylori in 09-30: consider issue of the K supplements (started about 2 wks prior to symptoms) H pylori positive in 09-30: started Prevpac (responded within 2 weeks) Paroxysmal atrial fibrillation 08/30/2008 0 04/07/2021 Overview: History Pre-op on coumadin/BB Assessment Asc aorta replacement+ Pulmonary vein isolation+ clipping of left atrial appendage with 45mm Atricure clip. Afib 09/05-DCC on 09/06. Remains in SR Plan BB/Amio . Dose daily Coumadin, mag ox. 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 hypothyroid, HTN. mild non obstructive CAD. CKD Stage 3 (baseline Scr 1.3) Preoperative Hospital Course: Airway Difficulty: Grade I - Glidescope (planned) d/t body habitus Pacing Wires: : Pulled 2/10 Chronological List of Surgeries and Major Events 08/31/2019: Asc aorta replacement+ Pulmonary vein isolation+ clipping of left atrial appendage with 45mm Atricure clip Uncomplicated OR course A/P of Major Active Problems Resp Extubated NOS; NC; wean o2,pep,oob CV HTN; cont BB. Amio for afib Renal CKD/FVO, Scr below baseline, Follow UOP/Renal Fx, cont diuresis Endo: SSI To Do or to Watch: Coumadin for AF/PE, dose daily, INR 2.0 afib RVR - mag, amio, BB--DCC 09/06 to SR rash bilat groin area- hydrocort lotion- improved Slight elevation in tbili 1.4- aymptomatic- stable CTA - showed sm PE - US of bilat LE negative for DVT Coumadin as pre op - pt has own machine from [place]. [facility] F2F placed. DC home with [facility] 09/08/19. Discharge Planning: Anticipated Discharge Date: 09/08 Barriers to Discharge: No Barriers to Discharge Care Management Discharge Needs: Needs Prior to Discharge: Procedure Atelectasis 08/31/2019 01/03/2020 Overview: History Elective Glidescope with Grade 1 view d/t body habitus Assessment on RA Plan C/DB,pep,oob Postoperative hypovolemia 08/31/20192019 Overview: History Post op Plan PRN IVF replacement Hyperbilirubinemia 08/30/2019 08/31/2019 Overview: Bilirubin, Total 2.0 08/30/2019 Bilirubin, Total 1.8 08/28/2019 Bilirubin, Total 1.7 07/10/2019 Bilirubin, Total 1.8 02/28/2019 Bilirubin, Total 1.6 11/10/2016 Discharge planning issues 08/27/20192020 Overview: This is a 74 y/o male from [place], [place] here for OHS. DC home with [facility] 09/08/19. Pre-op testing 08/27/2019 01/03/2020 Overview: [facility] Surgeon: Cleveland Reyes M.D. Informed Consent Completed: yes STS Score: unsupported CAD: No Is intended procedure a CABG: No - is a beta adam ordered? No - reason: H & P completed: Yes PA/LAT: Completed CT: Completed no f/u for adrenal gland per Christa check list MRI: N/A LE US: N/A Cath: completed EKG: Completed Is patient on Amiodarone? No Echo:Completed EF %: 61% PI's: N/A Carotid: N/A Mapping: N/A Dental: Completed PFT's: Completed UA: abn HCG:N/A ABO/ABO Confirmed: Yes Blood ordered: No SA Swab: Yes - results: neg Last Dose of Anticoagulation: coumadin 08/25/2019 Op Note: No Pacemaker Check: N/A Implants: no Consults: DM: No Cardiac Surgical prep: Yes will be instructed to take AD to j 1 1 SIGNATURE: Fer Callahan RN DATE of SERVICE: 08/27/2019 TIME of SERVICE: 9:31 AM CHECKED BY: Meli Garay APRN.SULFUR CHLORIDE OPERATOR August 30, 2019 1:14 PM History of pulmonary embolism 09/04/2018 History of DVT (deep vein thrombosis) 09/04/2018 08/31/2019 Primary localized osteoarthritis of right knee 0 08/22/2018 09/12/2018 Overview: Added automatically from request for surgery [id number] Primary osteoarthritis of left knee 05/03/2018 08/24/2018 Overview: Added automatically from request for surgery [id number] Anticoagulated on Coumadin 11/28/201608/31 Imaging abnormality 10/20/2012 12/03/2020 Heel spur 10/28/2011 12/03/2020 Paroxysmal supraventricular tachycardia 03/17/20 11 04/07/2021 Overview: [facility], Dr Sumit Montague/O: hematuria 05/12/2009 12/03/2020 Routine general medical exam ination at a health care facility 10/23/2008 11/11/2014 Overview: Creat 1.2 in 09-30 Empirically treated with Levaquin in 10-31 per Francoise/Asaf: CXR showed linear atelectasis, no CBC Obesity, Class III, BMI 40-49.9 (morbid obesity) 10/17/2008 01/03/2020 Overview: History: poa Assessment: Body mass index is 37.52 kg/m . Plan: lifestyle modification Unspecified gastritis and ga stroduodenitis without mention of hemorrhage 10/17/2008 12/03/2020 Overview: Started PPI and checked H pylori in 09-30: consider issue of the K supplements (started about 2 wks prior to symptoms) H pylori positive in 09-30: started Prevpac (responded within 2 weeks) Paroxysmal atrial fibrillation 08/30/2008 0 04/07/2021 Overview: History Pre-op on coumadin/BB Assessment Asc aorta replacement+ Pulmonary vein isolation+ clipping of left atrial appendage with 45mm Atricure clip. Afib 09/05-DCC on 09/06. Remains in SR Plan BB/Amio . Dose daily Coumadin, mag ox. 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 hypothyroid, HTN. mild non obstructive CAD. CKD Stage 3 (baseline Scr 1.3) Preoperative Hospital Course: Airway Difficulty: Grade I - Glidescope (planned) d/t body habitus Pacing Wires: : Pulled 09/03 Chronological List of Surgeries and Major Events 08/31/2019: Asc aorta replacement+ Pulmonary vein isolation+ clipping of left atrial appendage with 45mm Atricure clip Uncomplicated OR course A/P of Major Active Problems Resp Extubated NOS; NC; wean o2,pep,oob CV HTN; cont BB. Amio for afib Renal CKD/FVO, Scr below baseline, Follow UOP/Renal Fx, cont diuresis Endo: SSI To Do or to Watch: Coumadin for AF/PE, dose daily, INR 2.0 afib RVR - mag, amio, BB--DCC 09/06 to SR rash bilat groin area- hydrocort lotion- improved Slight elevation in tbili 1.4- aymptomatic- stable CTA - showed sm PE - US of bilat LE negative for DVT Coumadin as pre op - pt has own machine from [place]. [facility] F2F placed. DC home with [facility] 09/08/19. Discharge Planning: Anticipated Discharge Date: 09/08 Barriers to Discharge: No Barriers to Discharge Care Management Discharge Needs: Needs Prior to Discharge: Procedure Atelectasis 08/31/2019 01/03/2020 Overview: History Elective Glidescope with Grade 1 view d/t body habitus Assessment on RA Plan C/DB,pep,oob Postoperative hypovolemia 08/31/20192019 Overview: History Post op Plan PRN IVF replacement Hyperbilirubinemia 08/30/2019 08/31/2019 Overview: Bilirubin, Total 2.0 08/30/2019 Bilirubin, Total 1.8 08/28/2019 Bilirubin, Total 1.7 07/10/2019 Bilirubin, Total 1.8 02/28/2019 Bilirubin, Total 1.6 11/10/2016 Discharge planning issues 08/27/20192020 Overview: This is a 74 y/o male from [place], [place] here for OHS. DC home with [facility] 09/08/19. Pre-op testing 08/27/2019 01/03/2020 Overview: [facility] Surgeon: Cleveland Reyes M.D. Informed Consent Completed: yes STS Score: unsupported CAD: No Is intended procedure a CABG: No - is a beta adam ordered? No - reason: H & P completed: Yes PA/LAT: Completed CT: Completed no f/u for adrenal gland per Christa check list MRI: N/A LE US: N/A Cath: completed EKG: Completed Is patient on Amiodarone? No Echo:Completed EF %: 61% PI's: N/A Carotid: N/A Mapping: N/A Dental: Completed PFT's: Completed UA: abn HCG:N/A ABO/ABO Confirmed: Yes Blood ordered: No SA Swab: Yes - results: neg Last Dose of Anticoagulation: coumadin 08/25/2019 Op Note: No Pacemaker Check: N/A Implants: no Consults: DM: No Cardiac Surgical prep: Yes will be instructed to take AD to j 1 1 SIGNATURE: Fer Callahan RN DATE of SERVICE: 08/27/2019 TIME of SERVICE: 9:31 AM CHECKED BY: Meli Garay APRN.SULFUR CHLORIDE OPERATOR August 30, 2019 1:14 PM History of pulmonary embolism 09/04/2018 History of DVT (deep vein thrombosis) 09/04/2018 08/31/2019 Primary localized osteoarthritis of right knee 0 08/22/2018 09/12/2018 Overview: Added automatically from request for surgery [id number] Primary osteoarthritis of left knee 05/03/2018 08/24/2018 Overview: Added automatically from request for surgery [id number] Anticoagulated on Coumadin 11/28/201608/31 Imaging abnormality 10/20/2012 12/03/2020 Heel spur 10/28/2011 12/03/2020 Paroxysmal supraventricular tachycardia 03/17/20 11 04/07/2021 Overview: [facility], Dr Arana H/O: hematuria 05/12/2009 12/03/2020 Routine general medical exam ination at a health care facility 10/23/2008 11/11/2014 Overview: Creat 1.2 in 09-30 Empirically treated with Levaquin in 10-31 per Francoise/Asaf: CXR showed linear atelectasis, no CBC Obesity, Class III, BMI 40-49.9 (morbid obesity) 10/17/2008 01/03/2020 Overview: History: poa Assessment: Body mass index is 37.52 kg/m . Plan: lifestyle modification Unspecified gastritis and ga stroduodenitis without mention of hemorrhage 10/17/2008 12/03/2020 Overview: Started PPI and checked H pylori in 09-30: consider issue of the K supplements (started about 2 wks prior to symptoms) H pylori positive in 09-30: started Prevpac (responded within 2 weeks) Paroxysmal atrial fibrillation 08/30/2008 0 04/07/2021 Overview: History Pre-op on coumadin/BB Assessment Asc aorta replacement+ Pulmonary vein isolation+ clipping of left atrial appendage with 45mm Atricure clip. Afib 09/05-DCC on 09/06. Remains in SR Plan BB/Amio . Dose daily Coumadin, mag ox. 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 hypothyroid, HTN. mild non obstructive CAD. CKD Stage 3 (baseline Scr 1.3) Preoperative Hospital Course: Airway Difficulty: Grade I - Glidescope (planned) d/t body habitus Pacing Wires: : Pulled 09/03 Chronological List of Surgeries and Major Events 08/31/2019: Asc aorta replacement+ Pulmonary vein isolation+ clipping of left atrial appendage with 45mm Atricure clip Uncomplicated OR course A/P of Major Active Problems Resp Extubated NOS; NC; wean o2,pep,oob CV HTN; cont BB. Amio for afib Renal CKD/FVO, Scr below baseline, Follow UOP/Renal Fx, cont diuresis Endo: SSI To Do or to Watch: Coumadin for AF/PE, dose daily, INR 2.0 afib RVR - mag, amio, BB--DCC 09/06 to SR rash bilat groin area- hydrocort lotion- improved Slight elevation in tbili 1.4- aymptomatic- stable CTA - showed sm PE - US of bilat LE negative for DVT Coumadin as pre op - pt has own machine from [place], [place]. C F2F placed. DC home with [facility] 09/08/19. Discharge Planning: Anticipated Discharge Date: 09/08 Barriers to Discharge: No Barriers to Discharge Care Management Discharge Needs: Needs Prior to Discharge: Procedure Atelectasis 08/31/2019 01/03/2020 Overview: History Elective Glidescope with Grade 1 view d/t body habitus Assessment on RA Plan C/DB,pep,oob Postoperative hypovolemia 08/31/20192019 Overview: History Post op Plan PRN IVF replacement Hyperbilirubinemia 08/30/2019 08/31/2019 Overview: Bilirubin, Total 2.0 08/30/2019 Bilirubin, Total 1.8 08/28/2019 Bilirubin, Total 1.7 07/10/2019 Bilirubin, Total 1.8 02/28/2019 Bilirubin, Total 1.6 11/10/2016 Discharge planning issues 08/27/20192020 Overview: This is a 74 y/o male from [place], [place] here for OHS. DC home with [facility] 09/08/19. Pre-op testing 08/27/2019 01/03/2020 Overview: [facility] Surgeon: Cleveland Reyes M.D. Informed Consent Completed: yes STS Score: unsupported CAD: No Is intended procedure a CABG: No - is a beta adam ordered? No - reason: H & P completed: Yes PA/LAT: Completed CT: Completed no f/u for adrenal gland per Christa check list MRI: N/A LE US: N/A Cath: completed EKG: Completed Is patient on Amiodarone? No Echo:Completed EF %: 61% PI's: N/A Carotid: N/A Mapping: N/A Dental: Completed PFT's: Completed UA: abn HCG:N/A ABO/ABO Confirmed: Yes Blood ordered: No SA Swab: Yes - results: neg Last Dose of Anticoagulation: coumadin 08/25/2019 Op Note: No Pacemaker Check: N/A Implants: no Consults: DM: No Cardiac Surgical prep: Yes will be instructed to take AD to j 1 1 SIGNATURE: Fer Callahan RN DATE of SERVICE: 08/27/2019 TIME of SERVICE: 9:31 AM CHECKED BY: Meli Garay APRN.SULFUR CHLORIDE OPERATOR August 30, 2019 1:14 PM History of pulmonary embolism 09/04/2018 History of DVT (deep vein thrombosis) 09/04/2018 08/31/2019 Primary localized osteoarthritis of right knee 0 08/22/2018 09/12/2018 Overview: Added automatically from request for surgery [id number] Primary osteoarthritis of left knee 05/03/2018 08/24/2018 Overview: Added automatically from request for surgery [id number] Anticoagulated on Coumadin 11/28/201608/31 Imaging abnormality 10/20/2012 12/03/2020 Heel spur 10/28/2011 12/03/2020 Paroxysmal supraventricular tachycardia 03/17/20 11 04/07/2021 Overview: [facility], Dr Arana H/O: hematuria 05/12/2009 12/03/2020 Routine general medical exam ination at a health care facility 10/23/2008 11/11/2014 Overview: Creat 1.2 in 09-30 Empirically treated with Levaquin in 10-31 per Francoise/Asaf: CXR showed linear atelectasis, no CBC Obesity, Class III, BMI 40-49.9 (morbid obesity) 10/17/2008 01/03/2020 Overview: History: poa Assessment: Body mass index is 37.52 kg/m . Plan: lifestyle modification Unspecified gastritis and ga stroduodenitis without mention of hemorrhage 10/17/2008 12/03/2020 Overview: Started PPI and checked H pylori in 09-30: consider issue of the K supplements (started about 2 wks prior to symptoms) H pylori positive in 09-30: started Prevpac (responded within 2 weeks) Paroxysmal atrial fibrillation 08/30/2008 0 04/07/2021 Overview: History Pre-op on coumadin/BB Assessment Asc aorta replacement+ Pulmonary vein isolation+ clipping of left atrial appendage with 45mm Atricure clip. Afib 09/05-DCC on 09/06. Remains in SR Plan BB/Amio . Dose daily Coumadin, mag ox. 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 hypothyroid, HTN. mild non obstructive CAD. CKD Stage 3 (baseline Scr 1.3) Preoperative Hospital Course: Airway Difficulty: Grade I - Glidescope (planned) d/t body habitus Pacing Wires: : Pulled 09/03 Chronological List of Surgeries and Major Events 08/31/2019: Asc aorta replacement+ Pulmonary vein isolation+ clipping of left atrial appendage with 45mm Atricure clip Uncomplicated OR course A/P of Major Active Problems Resp Extubated NOS; NC; wean o2,pep,oob CV HTN; cont BB. Amio for afib Renal CKD/FVO, Scr below baseline, Follow UOP/Renal Fx, cont diuresis Endo: SSI To Do or to Watch: Coumadin for AF/PE, dose daily, INR 2.0 afib RVR - mag, amio, BB--DCC 09/06 to SR rash bilat groin area- hydrocort lotion- improved Slight elevation in tbili 1.4- aymptomatic- stable CTA - showed sm PE - US of bilat LE negative for DVT Coumadin as pre op - pt has own machine from [place] [facility] F2F placed. DC home with [facility] 09/08/19. Discharge Planning: Anticipated Discharge Date: 09/08 Barriers to Discharge: No Barriers to Discharge Care Management Discharge Needs: Needs Prior to Discharge: Procedure Atelectasis 08/31/2019 01/03/2020 Overview: History Elective Glidescope with Grade 1 view d/t body habitus Assessment on RA Plan C/DB,pep,oob Postoperative hypovolemia 08/31/20192019 Overview: History Post op Plan PRN IVF replacement Hyperbilirubinemia 08/30/2019 08/31/2019 Overview: Bilirubin, Total 2.0 08/30/2019 Bilirubin, Total 1.8 08/28/2019 Bilirubin, Total 1.7 07/10/2019 Bilirubin, Total 1.8 02/28/2019 Bilirubin, Total 1.6 11/10/2016 Discharge planning issues 08/27/20192020 Overview: This is a 74 y/o male from [place], [place] here for OHS. DC home with [facility] 09/08/19. Pre-op testing 08/27/2019 01/03/2020 Overview: [facility] Surgeon: Cleveland Reyes M.D. Informed Consent Completed: yes STS Score: unsupported CAD: No Is intended procedure a CABG: No - is a beta adam ordered? No - reason: H & P completed: Yes PA/LAT: Completed CT: Completed no f/u for adrenal gland per Christa check list MRI: N/A LE US: N/A Cath: completed EKG: Completed Is patient on Amiodarone? No Echo:Completed EF %: 61% PI's: N/A Carotid: N/A Mapping: N/A Dental: Completed PFT's: Completed UA: abn HCG:N/A ABO/ABO Confirmed: Yes Blood ordered: No SA Swab: Yes - results: neg Last Dose of Anticoagulation: coumadin 08/25/2019 Op Note: No Pacemaker Check: N/A Implants: no Consults: DM: No Cardiac Surgical prep: Yes will be instructed to take AD to j 1 1 SIGNATURE: Fer Callahan RN DATE of SERVICE: 08/27/2019 TIME of SERVICE: 9:31 AM CHECKED BY: Meli Garay APRN.SULFUR CHLORIDE OPERATOR August 30, 2019 1:14 PM History of pulmonary embolism 09/04/2018 History of DVT (deep vein thrombosis) 09/04/2018 08/31/2019 Primary localized osteoarthritis of right knee 0 08/22/2018 09/12/2018 Overview: Added automatically from request for surgery [id number] Primary osteoarthritis of left knee 05/03/2018 08/24/2018 Overview: Added automatically from request for surgery [id number] Anticoagulated on Coumadin 11/28/201608/31 Imaging abnormality 10/20/2012 12/03/2020 Heel spur 10/28/2011 12/03/2020 Paroxysmal supraventricular tachycardia 03/17/20 11 04/07/2021 Overview: [facility], Dr Arana H/O: hematuria 05/12/2009 12/03/2020 Routine general medical exam ination at a health care facility 10/23/2008 11/11/2014 Overview: Creat 1.2 in 09-30 Empirically treated with Levaquin in 10-31 per Francoise/Asaf: CXR showed linear atelectasis, no CBC Obesity, Class III, BMI 40-49.9 (morbid obesity) 10/17/2008 01/03/2020 Overview: History: poa Assessment: Body mass index is 37.52 kg/m . Plan: lifestyle modification Unspecified gastritis and ga stroduodenitis without mention of hemorrhage 10/17/2008 12/03/2020 Overview: Started PPI and checked H pylori in 09-30: consider issue of the K supplements (started about 2 wks prior to symptoms) H pylori positive in 09-30: started Prevpac (responded within 2 weeks) Paroxysmal atrial fibrillation 08/30/2008 0 04/07/2021 Overview: History Pre-op on coumadin/BB Assessment Asc aorta replacement+ Pulmonary vein isolation+ clipping of left atrial appendage with 45mm Atricure clip. Afib 09/05-DCC on 09/06. Remains in SR Plan BB/Amio . Dose daily Coumadin, mag ox. 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 hypothyroid, HTN. mild non obstructive CAD. CKD Stage 3 (baseline Scr 1.3) Preoperative Hospital Course: Airway Difficulty: Grade I - Glidescope (planned) d/t body habitus Pacing Wires: : Pulled 09/03 Chronological List of Surgeries and Major Events 08/31/2019: Asc aorta replacement+ Pulmonary vein isolation+ clipping of left atrial appendage with 45mm Atricure clip Uncomplicated OR course A/P of Major Active Problems Resp Extubated NOS; NC; wean o2,pep,oob CV HTN; cont BB. Amio for afib Renal CKD/FVO, Scr below baseline, Follow UOP/Renal Fx, cont diuresis Endo: SSI To Do or to Watch: Coumadin for AF/PE, dose daily, INR 2.0 afib RVR - mag, amio, BB--DCC 09/06 to SR rash bilat groin area- hydrocort lotion- improved Slight elevation in tbili 1.4- aymptomatic- stable CTA - showed sm PE - US of bilat LE negative for DVT Coumadin as pre op - pt has own machine from [place]. [facility] F2F placed. DC home with [facility] 09/08/19. Discharge Planning: Anticipated Discharge Date: 09/08 Barriers to Discharge: No Barriers to Discharge Care Management Discharge Needs: Needs Prior to Discharge: Procedure Atelectasis 08/31/2019 01/03/2020 Overview: History Elective Glidescope with Grade 1 view d/t body habitus Assessment on RA Plan C/DB,pep,oob Postoperative hypovolemia 08/31/20192019 Overview: History Post op Plan PRN IVF replacement Hyperbilirubinemia 08/30/2019 08/31/2019 Overview: Bilirubin, Total 2.0 08/30/2019 Bilirubin, Total 1.8 08/28/2019 Bilirubin, Total 1.7 07/10/2019 Bilirubin, Total 1.8 02/28/2019 Bilirubin, Total 1.6 11/10/2016 Discharge planning issues 08/27/20192020 Overview: This is a 74 y/o male from [place], [place] here for OHS. DC home with [facility] 09/08/19. Pre-op testing 08/27/2019 01/03/2020 Overview[facility] Surgeon: Cleveland Reyes M.D. Informed Consent Completed: yes STS Score: unsupported CAD: No Is intended procedure a CABG: No - is a beta adam ordered? No - reason: H & P completed: Yes PA/LAT: Completed CT: Completed no f/u for adrenal gland per Christa check list MRI: N/A LE US: N/A Cath: completed EKG: Completed Is patient on Amiodarone? No Echo:Completed EF %: 61% PI's: N/A Carotid: N/A Mapping: N/A Dental: Completed PFT's: Completed UA: abn HCG:N/A ABO/ABO Confirmed: Yes Blood ordered: No SA Swab: Yes - results: neg Last Dose of Anticoagulation: coumadin 08/25/2019 Op Note: No Pacemaker Check: N/A Implants: no Consults: DM: No Cardiac Surgical prep: Yes will be instructed to take AD to j 1 1 SIGNATURE: Fer Callahan RN DATE of SERVICE: 08/27/2019 TIME of SERVICE: 9:31 AM CHECKED BY: Meli Garay APRN.SULFUR CHLORIDE OPERATOR August 30, 2019 1:14 PM History of pulmonary embolism 09/04/2018 History of DVT (deep vein thrombosis) 09/04/2018 08/31/2019 Primary localized osteoarthritis of right knee 0 08/22/2018 09/12/2018 Overview: Added automatically from request for surgery [id number] Primary osteoarthritis of left knee 05/03/2018 08/24/2018 Overview: Added automatically from request for surgery [id number] Anticoagulated on Coumadin 11/28/201608/31 Imaging abnormality 10/20/2012 12/03/2020 Heel spur 10/28/2011 12/03/2020 Paroxysmal supraventricular tachycardia 03/17/2004/07/2021 Overview: [facility], Dr Arana H/O: hematuria 05/12/2009 12/03/2020 Routine general medical exam ination at a health care facility 10/23/2008 11/11/2014 Overview: Creat 1.2 in 09-30 Empirically treated with Levaquin in 10-31 per Francoise/Asaf: CXR showed linear atelectasis, no CBC Obesity, Class III, BMI 40-49.9 (morbid obesity) 10/17/2008 01/03/2020 Overview: History: poa Assessment: Body mass index is 37.52 kg/m . Plan: lifestyle modification Unspecified gastritis and ga stroduodenitis without mention of hemorrhage 10/17/2008 12/03/2020 Overview: Started PPI and checked H pylori in 09-30: consider issue of the K supplements (started about 2 wks prior to symptoms) H pylori positive in 09-30: started Prevpac (responded within 2 weeks) Paroxysmal atrial fibrillation 08/30/2008 0 04/07/2021 Overview: History Pre-op on coumadin/BB Assessment Asc aorta replacement+ Pulmonary vein isolation+ clipping of left atrial appendage with 45mm Atricure clip. Afib 09/05-DCC on 09/06. Remains in SR Plan BB/Amio . Dose daily Coumadin, mag ox. 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 12/12/2007 12/03/2020 Overview: Garry 09: L temp lesion noted in 03-31 and followed routinely without change (9 mm lesion)-rec MRI in 8 mo documented as of this encounter (statuses as of 01/19/2023) [facility] History of Past illness Narrative* Problem Noted Date Diagnosed Date Resolved Date Transition of care performed with sharing of clinical summary 09/05/2019 01/03/2020 Overview: Indication for Surgery: AF/Asc aorta aneurysm Preop LVEF: 60% RVF: Normal Postop LVEF: Normal RVF: Normal CARDS Wassif EKG afib mild cad Important/Relevant PMH/PSH: AF (BB/Coumadin).DVT/PE(Coumadin). hypothyroid, HTN. mild non obstructive CAD. CKD Stage 3 (baseline Scr 1.3) Preoperative Hospital Course: Airway Difficulty: Grade I - Glidescope (planned) d/t body habitus Pacing Wires: : Pulled 09/03 Chronological List of Surgeries and Major Events 08/31/2019: Asc aorta replacement+ Pulmonary vein isolation+ clipping of left atrial appendage with 45mm Atricure clip Uncomplicated OR course A/P of Major Active Problems Resp Extubated NOS; NC; wean o2,pep,oob CV HTN; cont BB. Amio for afib Renal CKD/FVO, Scr below baseline, Follow UOP/Renal Fx, cont diuresis Endo: SSI To Do or to Watch: Coumadin for AF/PE, dose daily, INR 2.0 afib RVR - mag, amio, BB--DCC 09/06 to SR rash bilat groin area- hydrocort lotion- improved Slight elevation in tbili 1.4- aymptomatic- stable CTA - showed sm PE - US of bilat LE negative for DVT Coumadin as pre op - pt has own machine from [place]. [facility] F2F placed. DC home with [facility] 09/08/19. Discharge Planning: Anticipated Discharge Date: 09/08 Barriers to Discharge: No Barriers to Discharge Care Management Discharge Needs: Needs Prior to Discharge: Procedure Atelectasis 08/31/2019 01/03/2020 Overview: History Elective Glidescope with Grade 1 view d/t body habitus Assessment on RA Plan C/DB,pep,oob Postoperative hypovolemia 08/31/2019 Overview: History Post op Plan PRN IVF replacement Hyperbilirubinemia 08/30/2019 0 Overview: Bilirubin, Total 2.0 08/30/2019 Bilirubin, Total 1.8 08/28/2019 Bilirubin, Total 1.7 07/10/2019 Bilirubin, Total 1.8 02/28/2019 Bilirubin, Total 1.6 11/10/2016 Discharge planning issues 08/27/2019 Overview: This is a 74 y/o male from [place], [place] here for OHS. DC home with [facility] 09/08/19. Pre-op testing 08/27/2019 01/03/2020 Overview: [facility] Surgeon: Cleveland Reyes M.D. Informed Consent Completed: yes STS Score: unsupported CAD: No Is intended procedure a CABG: No - is a beta adam ordered? No - reason: H & P completed: Yes PA/LAT: Completed CT: Completed no f/u for adrenal gland per Christa check list MRI: N/A LE US: N/A Cath: completed EKG: Completed Is patient on Amiodarone? No Echo:Completed EF %: 61% PI's: N/A Carotid: N/A Mapping: N/A Dental: Completed PFT's: Completed UA: abn HCG:N/A ABO/ABO Confirmed: Yes Blood ordered: No SA Swab: Yes - results: neg Last Dose of Anticoagulation: coumadin 08/25/2019 Op Note: No Pacemaker Check: N/A Implants: no Consults: DM: No Cardiac Surgical prep: Yes will be instructed to take AD to j 1 1 SIGNATURE: Fer Callahan RN DATE of SERVICE: 08/27/2019 TIME of SERVICE: 9:31 AM CHECKED BY: Meli Garay APRN.SULFUR CHLORIDE OPERATOR August 30, 2019 1:14 PM History of pulmonary embolism 09/04/2018 08/31/2019 History of DVT (deep vein thrombosis) 09/04/2018 08/31/2019 Primary localized osteoarthr itis of right knee 08/22/2018 09/12/2018 Overview: Added automatically from request for surgery [id number] Primary osteoarthritis of left knee 05/03/2018 08/24/2018 Overview: Added automatically from request for surgery [id number] Anticoagulated on Coumadin 11/28/2016 0 08/31/2019 Imaging abnormality 10/20/2012 12/04/19 21 Heel spur 10/28/2011 12/03/2020 Paroxysmal supraventricular tachycardia 03/17/2011 04/07/2021 Overview: [facility], Dr Arana H/O: hematuria 05/12/2009 12/03/2020 Routine general medical exam ination at a health care facility 10/23/2008 11/11/2014 Overview: Creat 1.2 in - Empirically treated with Levaquin in 10-31 per Francoise/Asaf: CXR showed linear atelectasis, no CBC Obesity, Class III, 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 Plan: lifestyle modification Unspecified gastritis and ga stroduodenitis without mention of hemorrhage 10/17/2008 12/03/2020 Overview: Started PPI and checked H pylori in 09-30: consider issue of the K supplements (started about 2 wks prior to symptoms) H pylori positive in 09-30: started Prevpac (responded within 2 weeks) Paroxysmal atrial fibrillation 08/30/2008 04/07/2021 Overview: History Pre-op on coumadin/BB Assessment . Asc aorta replacement+ Pulmonary vein isolation+ clipping of left atrial appendage with 45mm Atricure clip. Afib 09/05-DCC on 09/06. Remains in SR Plan BB/Amio . Dose daily Coumadin, mag ox. 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 hypothyroid, HTN. mild non obstructive CAD. CKD Stage 3 (baseline Scr 1.3) Preoperative Hospital Course: Airway Difficulty: Grade I - Glidescope (planned) d/t body habitus Pacing Wires: : Pulled 09/03 Chronological List of Surgeries and Major Events 08/31/2019: Asc aorta replacement+ Pulmonary vein isolation+ clipping of left atrial appendage with 45mm Atricure clip Uncomplicated OR course A/P of Major Active Problems Resp Extubated NOS; NC; wean o2,pep,oob CV HTN; cont BB. Amio for afib Renal CKD/FVO, Scr below baseline, Follow UOP/Renal Fx, cont diuresis Endo: SSI To Do or to Watch: Coumadin for AF/PE, dose daily, INR 2.0 afib RVR - mag, amio, BB--DCC 09/06 to SR rash bilat groin area- hydrocort lotion- improved Slight elevation in tbili 1.4- aymptomatic- stable CTA - showed sm PE - US of bilat LE negative for DVT Coumadin as pre op - pt has own machine from [place], [place]. [facility] F2F placed. DC home with [facility] 09/08/19. Discharge Planning: Anticipated Discharge Date: 09/08 Barriers to Discharge: No Barriers to Discharge Care Management Discharge Needs: Needs Prior to Discharge: Procedure Atelectasis 08/31/2019 01/03/2020 Overview: History Elective Glidescope with Grade 1 view d/t body habitus Assessment on RA Plan C/DB,pep,oob Postoperative hypovolemia 08/31/2019 Overview: History Post op Plan PRN IVF replacement Hyperbilirubinemia 08/30/2019 Overview: Bilirubin, Total 2.0 08/30/2019 Bilirubin, Total 1.8 08/28/2019 Bilirubin, Total 1.7 07/10/2019 Bilirubin, Total 1.8 02/28/2019 Bilirubin, Total 1.6 11/10/2016 Discharge planning issues 08/27/2019 Overview: This is a 74 y/o male from [place], [place] here for OHS. DC home with [facility] 09/08/19. Pre-op testing 08/27/2019 01/03/2020 Overview: [facility] Surgeon: Cleveland Reyes M.D. Informed Consent Completed: yes STS Score: unsupported CAD: No Is intended procedure a CABG: No - is a beta adam ordered? No - reason: H & P completed: Yes PA/LAT: Completed CT: Completed no f/u for adrenal gland per Christa check list MRI: N/A LE US: N/A Cath: completed EKG: Completed Is patient on Amiodarone? No Echo:Completed EF %: 61% PI's: N/A Carotid: N/A Mapping: N/A Dental: Completed PFT's: Completed UA: abn HCG:N/A ABO/ABO Confirmed: Yes Blood ordered: No SA Swab: Yes - results: neg Last Dose of Anticoagulation: coumadin 08/25/2019 Op Note: No Pacemaker Check: N/A Implants: no Consults: DM: No Cardiac Surgical prep: Yes will be instructed to take AD to j 1 1 SIGNATURE: Fer Callahan RN DATE of SERVICE: 08/27/2019 TIME of SERVICE: 9:31 AM CHECKED BY: Meli Garay APRN.SULFUR CHLORIDE OPERATOR August 30, 2019 1:14 PM History of pulmonary embolism 09/04/2018 08/31/2019 History of DVT (deep vein thrombosis) 09/04/2018 08/31/2019 Primary localized osteoarthr itis of right knee 08/22/2018 09/12/2018 Overview: Added automatically from request for surgery [id number] Primary osteoarthritis of left knee 05/03/2018 08/24/2018 Overview: Added automatically from request for surgery [id number] Anticoagulated on Coumadin 11/28/2016 0 08/31/2019 Imaging abnormality 10/20/2012 12/04/19 21 Heel spur 10/28/2011 12/03/2020 Paroxysmal supraventricular tachycardia 03/17/2011 04/07/2021 Overview: [facility], Dr Arana H/O: hematuria 05/12/2009 12/03/2020 Routine general medical exam ination at a health care facility 10/23/2008 11/11/2014 Overview: Creat 1.2 in 09-30 Empirically treated with Levaquin in 10-31 per Francoise/Asaf: CXR showed linear atelectasis, no CBC Obesity, Class III, 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 Plan: lifestyle modification Unspecified gastritis and ga stroduodenitis without mention of hemorrhage 10/17/2008 12/03/2020 Overview: Started PPI and checked H pylori in 09-30: consider issue of the K supplements (started about 2 wks prior to symptoms) H pylori positive in 09-30: started Prevpac (responded within 2 weeks) Paroxysmal atrial fibrillation 08/30/2008 04/07/2021 Overview: History Pre-op on coumadin/BB Assessment Asc aorta replacement+ Pulmonary vein isolation+ clipping of left atrial appendage with 45mm Atricure clip. Afib 09/05-DCC on 09/06. Remains in SR Plan BB/Amio . Dose daily Coumadin, mag ox. 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 hypothyroid, HTN. mild non obstructive CAD. CKD Stage 3 (baseline Scr 1.3) Preoperative Hospital Course: Airway Difficulty: Grade I - Glidescope (planned) d/t body habitus Pacing Wires: : Pulled 09/03 Chronological List of Surgeries and Major Events 08/31/2019: Asc aorta replacement+ Pulmonary vein isolation+ clipping of left atrial appendage with 45mm Atricure clip Uncomplicated OR course A/P of Major Active Problems Resp Extubated NOS; NC; wean o2,pep,oob CV HTN; cont BB. Amio for afib Renal CKD/FVO, Scr below baseline, Follow UOP/Renal Fx, cont diuresis Endo: SSI To Do or to Watch: Coumadin for AF/PE, dose daily, INR 2.0 afib RVR - mag, amio, BB--DCC 09/06 to SR rash bilat groin area- hydrocort lotion- improved Slight elevation in tbili 1.4- aymptomatic- stable CTA - showed sm PE - US of bilat LE negative for DVT Coumadin as pre op - pt has own machine from [place]. [facility] F2F placed. DC home with [facility] 09/08/19. Discharge Planning: Anticipated Discharge Date: 09/08 Barriers to Discharge: No Barriers to Discharge Care Management Discharge Needs: Needs Prior to Discharge: Procedure Atelectasis 08/31/2019 01/03/2020 Overview: History Elective Glidescope with Grade 1 view d/t body habitus Assessment on RA Plan C/DB,pep,oob Postoperative hypovolemia 08/31/2019 Overview: History Post op Plan PRN IVF replacement Hyperbilirubinemia 08/30/2019 0 Overview: Bilirubin, Total 2.0 08/30/2019 Bilirubin, Total 1.8 08/28/2019 Bilirubin, Total 1.7 07/10/2019 Bilirubin, Total 1.8 02/28/2019 Bilirubin, Total 1.6 11/10/2016 Discharge planning issues 08/27/2019 Overview: This is a 74 y/o male from [place], [place] here for OHS. DC home with [facility] 09/08/19. Pre-op testing 08/27/2019 01/03/2020 Overview: [facility] Surgeon: Cleveland Reyes M.D. Informed Consent Completed: yes STS Score: unsupported CAD: No Is intended procedure a CABG: No - is a beta adam ordered? No - reason: H & P completed: Yes PA/LAT: Completed CT: Completed no f/u for adrenal gland per Christa check list MRI: N/A LE US: N/A Cath: completed EKG: Completed Is patient on Amiodarone? No Echo:Completed EF %: 61% PI's: N/A Carotid: N/A Mapping: N/A Dental: Completed PFT's: Completed UA: abn HCG:N/A ABO/ABO Confirmed: Yes Blood ordered: No SA Swab: Yes - results: neg Last Dose of Anticoagulation: coumadin 08/25/2019 Op Note: No Pacemaker Check: N/A Implants: no Consults: DM: No Cardiac Surgical prep: Yes will be instructed to take AD to j 1 1 SIGNATURE: Fer Callahan RN DATE of SERVICE: 08/27/2019 TIME of SERVICE: 9:31 AM CHECKED BY: Meli Garay APRN.SULFUR CHLORIDE OPERATOR August 30, 2019 1:14 PM History of pulmonary embolism 09/04/2018 08/31/2019 History of DVT (deep vein thrombosis) 09/04/2018 08/31/2019 Primary localized osteoarthr itis of right knee 08/22/2018 09/12/2018 Overview: Added automatically from request for surgery [id number] Primary osteoarthritis of left knee 05/03/2018 08/24/2018 Overview: Added automatically from request for surgery [id number] Anticoagulated on Coumadin 11/28/2016 0 08/31/2019 Imaging abnormality 10/20/2012 12/04/19 21 Heel spur 10/28/2011 12/03/2020 Paroxysmal supraventricular tachycardia 03/17/2011 04/07/2021 Overview: [facility], Dr Arana H/O: hematuria 05/12/2009 12/03/2020 Routine general medical exam ination at a health care facility 10/23/2008 11/11/2014 Overview: Creat 1.2 in 09-30 Empirically treated with Levaquin in 10-31 per Francoise/Asaf: CXR showed linear atelectasis, no CBC Obesity, Class III, 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 Plan: lifestyle modification Unspecified gastritis and ga stroduodenitis without mention of hemorrhage 10/17/2008 12/03/2020 Overview: Started PPI and checked H pylori in 09-30: consider issue of the K supplements (started about 2 wks prior to symptoms) H pylori positive in 09-30: started Prevpac (responded within 2 weeks) Paroxysmal atrial fibrillation 08/30/2008 04/07/2021 Overview: History Pre-op on coumadin/BB Assessment Asc aorta replacement+ Pulmonary vein isolation+ clipping of left atrial appendage with 45mm Atricure clip. Afib 09/05-DCC on 09/06. Remains in SR Plan BB/Amio . Dose daily Coumadin, mag ox. 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 note* Diagnosis Acquired hypothyroidism- Primary Unspecified hypothyroidism Essential hypertension Unspecified essential hypertension Stage 3a chronic kidney disease (HCC) Elevated hemoglobin A1c Other abnormal blood chemistry Prostate cancer screening Special screening for malignant neoplasm of prostate Hypercholesterolemia Pure hypercholesterolemia Skin lesion Unspecified disorder of skin and subcutaneous tissue Medication management Encounter for long-term (current) use of other medications documented in this encounter [facility] note* Diagnosis Pre-operative examination- Primary Preoperative examination, unspecified Acquired hypothyroidism Unspecified hypothyroidism Status post ascending aortic aneurysm repair Other postprocedural status Stage 3a chronic kidney disease (HCC) Status post total right knee replacement Mixed hyperlipidemia History of pulmonary embolism Personal history of pulmonary embolism Atherosclerosis of coronary artery of [place] heart without angina pectoris, unspecified vessel or lesion type Aortic root dilatation (HCC) Thoracic aortic ectasia Class 2 obesity due to excess calories with body mass index (BMI) of 39.0 to 39.9 in adult, unspecified whether serious comorbidity present Unspecified disorder of skin and subcutaneous tissue documented in this encounter [facility] note* Diagnosis Lesion of temporal lobe- Primary Other conditions of brain Nightmare Other dysfunctions of sleep stages or arousal from sleep Sleep pattern disturbance Sleep disturbance, unspecified documented in this encounter [facility] note* Diagnosis Aftercare- Primary Unspecified aftercare [facility] Diagnosis Lesion of temporal lobe- Primary Other conditions of brain Nightmare Other dysfunctions of sleep stages or arousal from sleep Sleep pattern disturbance Sleep disturbance, unspecified Acquired hypothyroidism Unspecified hypothyroidism documented in this encounter [facility] for referral (narrative)* Outpatient Procedure (Routine) - Closed Specialty Diagnoses / Procedures Referred By Contgraciela t Referred To Contact [facility] Diagnoses Pre-operative examination Procedures ECG COMPLETE ECG ROUTINE ECG W/LEAST 12 LDS W/I&R Bridgette Aguilera, LAST MARKER.SULFUR CHLORIDE OPERATOR [address] [place] [address] [facility] [place] [address] [place] [address] Referral ID Status Reason Start Date Expiration Date V isits Requested Visits Authorized [id number] Closed Auto-Generate d Referral 04/08/2023 04/07/2024 1 1 [facility] Advance Directives No Advanced Directives Records FoundDocuments on File Type Date Recorded Patient Packaging Sales Consultant Expl anation Advance Directive(s) 06/02/2018 9:59 AM Latest Code Status on File Code Status Date Activated Date Inactivated Comments Full Code 09/11/2018 2:14 PM 09/12/2018 6:53 PM Full Code Order Discussed With: Patient Full Code 06/02/2018 3:58 PM 06/03/2018 8:32 PM Documents on File Type Date Recorded Patient Packaging Sales Consultant Expl anation Advance Directive(s) 08/28/2019 3:19 PM Advance Directive(s) 08/21/2019 10:21 AM Advance Directive(s) 10/12/2018 10:46 AM Advance Directive(s) 06/02/2018 10:06 AM S canned 06-02-2018 Advance Directive(s) 06/02/2018 9:59 AM Advance Directive(s) 01/05/2018 10:14 AM Latest Code Status on File Code Status Date Activated Date Inactivated Comments Full Code 09/11/2018 2:14 PM 09/12/2018 6:53 PM Question Answer Comments Full Code Order Discussed With: Patient Code Status History Code Status Date Activated Date Inactivated Comments Full Code 06/02/2018 3:58 PM 06/03/2018 8:32 PM Question Answer Comments Full Code Order Discussed With: Patient Documents on File Type Date Recorded Patient Packaging Sales Consultant Expl anation Advance Directive(s) 06/02/2018 9:59 AM Latest Code Status on File Code Status Date Activated Date Inactivated Comments Full Code 09/11/2018 2:14 PM 09/12/2018 6:53 PM Question Answer Comments Full Code Order Discussed With: Patient Code Status History Code Status Date Activated Date Inactivated Comments Full Code 06/02/2018 3:58 PM 06/03/2018 8:32 PM Question Answer Comments Full Code Order Discussed With: Patient Summary Purpose Family History No Family History Records FoundNo Family History Records Found Reason for Referral Specialty Diagnoses / Procedures Referred By Rolanda t Referred To Contact Neurology Diagnoses Lesion of temporal lobe Nightmare Sleep pattern disturbance Procedures CONSULT TO NEUROLOGY OFFICE/OUTPATIENT NEW HIGH MDM 60-74 MINUTES Gladis Soliz, TAMIKO.[facility] [address] [place] [address] Referral ID Status Reason Start Date Expiration Date Visits Requested Visits Authorized [id number] Pending Review PCP Requested Referral 04/19/2023 04/18/2024 1 1 Specialty Diagnoses / Procedures Referred By Rolanda an Referred To Contact MR IMAGING Diagnoses Lesion of temporal lobe Nightmare Sleep pattern disturbance Procedures MRI BRAIN WO/W IVCON MRI BRAIN BRAIN STEM W/O W/CONTRAST MATERIAL Gladis Soliz, LAST MARKER.SEARCH AND RESCUE OFFICER [address] [facility] [place] [address] [place] [address] Referral ID Status Reason Start Date Expiration Date Visits Requested Visits Authorized [id number] Authorized Auto-Generat ed Referral 04/19/2023 05/18/2024 1 1 Additional Source Comments Source Comments (unrecognize d section and content) In the event this informatio n is protected by the Federal Confidentiality of Alcohol and Drug Abuse Patient Records regulations: The Federal rules restrict any use of the information to criminally investigate or prosecute any alcohol or drug abuse patient.[facility] the event this information is protected by the Federal Confidentiality of Alcohol and Drug Abuse Patient Records regulations: The Federal rules restrict any use of the information to criminally investigate or prosecute any alcohol or drug abuse patient.[facility] Hospital[facility] the event this information is protected by the Federal Confidentiality of Alcohol and Drug Abuse Patient Records regulations: The Federal rules restrict any use of the information to criminally investigate or prosecute any alcohol or drug abuse patient.[facility] the event this information is protected by the Federal Confidentiality of Alcohol and Drug Abuse Patient Records regulations: The Federal rules restrict any use of the information to criminally investigate or prosecute any alcohol or drug abuse patient.[facility] HospitalIn the event this information is protected by the Federal Confidentiality of Alcohol and Drug Abuse Patient Records regulations: The Federal rules restrict any use of the information to criminally investigate or prosecute any alcohol or drug abuse patient.[facility] HospitalIn the event this information is protected by the Federal Confidentiality of Alcohol and Drug Abuse Patient Records regulations: The Federal rules restrict any use of the information to criminally investigate or prosecute any alcohol or drug abuse patient.[facility] HospitalIn the event this information is protected by the Federal Confidentiality of Alcohol and Drug Abuse Patient Records regulations: The Federal rules restrict any use of the information to criminally investigate or prosecute any alcohol or drug abuse patient.[facility] HospitalIn the event this information is protected by the Federal Confidentiality of Alcohol and Drug Abuse Patient Records regulations: The Federal rules restrict any use of the information to criminally investigate or prosecute any alcohol or drug abuse patient.[facility] HospitalIn the event this information is protected by the Federal Confidentiality of Alcohol and Drug Abuse Patient Records regulations: The Federal rules restrict any use of the information to criminally investigate or prosecute any alcohol or drug abuse patient.[facility] HospitalIn the event this information is protected by the Federal Confidentiality of Alcohol and Drug Abuse Patient Records regulations: The Federal rules restrict any use of the information to criminally investigate or prosecute any alcohol or drug abuse patient.[facility] HospitalIn the event this information is protected by the Federal Confidentiality of Alcohol and Drug Abuse Patient Records regulations: The Federal rules restrict any use of the information to criminally investigate or prosecute any alcohol or drug abuse patient.[facility] HospitalIn the event this information is protected by the Federal Confidentiality of Alcohol and Drug Abuse Patient Records regulations: The Federal rules restrict any use of the information to criminally investigate or prosecute any alcohol or drug abuse patient.[facility] HospitalIn the event this information is protected by the Federal Confidentiality of Alcohol and Drug Abuse Patient Records regulations: The Federal rules restrict any use of the information to criminally investigate or prosecute any alcohol or drug abuse patient.[facility] HospitalIn the event this information is protected by the Federal Confidentiality of Alcohol and Drug Abuse Patient Records regulations: The Federal rules restrict any use of the information to criminally investigate or prosecute any alcohol or drug abuse patient.[facility] HospitalIn the event this information is protected by the Federal Confidentiality of Alcohol and Drug Abuse Patient Records regulations: The Federal rules restrict any use of the information to criminally investigate or prosecute any alcohol or drug abuse patient.[facility] HospitalIn the event this information is protected by the Federal Confidentiality of Alcohol and Drug Abuse Patient Records regulations: The Federal rules restrict any use of the information to criminally investigate or prosecute any alcohol or drug abuse patient.[facility] HospitalIn the event this information is protected by the Federal Confidentiality of Alcohol and Drug Abuse Patient Records regulations: The Federal rules restrict any use of the information to criminally investigate or prosecute any alcohol or drug abuse patient.[facility] Reason for Visit (unrecogniz ed section and content) Reason Comments Covid19 Concern Reason Comments COVID positive infection Reason Onset Date Comments Population Health Navigation Outreach 10/21/2022 HCC's Reason Comments Results Reason Comments Consult Reason Comments nightmares Lashing out at night Reason Comments Follow Up Reason Onset Date Comments Refill Request 06/16/2023 Reason Onset Date Comments Refill Request 06/17/2023 Care Teams (unrecognized sec tion and content) Coagulating Drying Supervisor Relationship Specialty Start Date End Date Fartun Downs MD [address] [place] [address] PCP - General 10/04/09 [employer] CM Arcelia Lisbeth Community Resource 09/11/18 Coagulating Drying Supervisor Relationship Specialty Start Date End Date Fartun Downs MD [address] [facility] [place] [address] PCP - General 10/04/09 [employer] CM Arcelia Lis[facility] Community Resource 09/11/18 Coagulating Drying Supervisor Relationship Specialty Start Date End Date Fartun Downs MD [address] [place] [address] PCP - General 10/04/09 [employer] CM Arcelia Lisbeth Community Resource 09/11/18 Coagulating Drying Supervisor Relationship Specialty Start Date End Date Fartun Downs MD [address] [facility] [place] [address] PCP - General 10/04/09 [employer] CM Arcelia Lisbeth Community Resource 09/11/18 Coagulating Drying Supervisor Relationship Specialty Start Date End Date Fartun Downs MD [address] [facility] [place] [address] PCP - General 10/04/09 [employer] CM Arcelia Lisbeth Community Resource 09/11/18 Coagulating Drying Supervisor Relationship Specialty Start Date End Date Fartun Downs MD [address] [facility] [place] [address] PCP - General 10/04/09 [employer] CM Arcelia Lisbeth Community Resource 09/11/18 Coagulating Drying Supervisor Relationship Specialty Start Date End Date Fartun Downs MD [address] [place] [address] PCP - General 10/04/09 [employer] CM Arcelia [place] Community Resource 09/11/18 Coagulating Drying Supervisor Relationship Specialty Start Date End Date Fartun Downs MD [address] [place] [address] PCP - General 10/04/09 [employer] CM Arcelia [place] [facility] Resource 09/11/18 Coagulating Drying Supervisor Relationship Specialty Start Date End Date Fartun Downs MD [address] [place] [address] PCP - General 10/04/09 [employer] CM Arcelia [place] [facility] Resource 09/11/18 Coagulating Drying Supervisor Relationship Specialty Start Date End Date Fartun Downs MD [address] [place] [address] PCP - General 10/04/09 [employer] CM Arcelia [place] [facility] 09/11/18 Coagulating Drying Supervisor Relationship Specialty Start Date End Date Fartun Downs MD [address] [place] [address] PCP - General 10/04/09 [employer] CM Arcelia [place] [facility] 09/11/18 Coagulating Drying Supervisor Relationship Specialty Start Date End Date Fartun Downs MD [address] [place] [address] PCP - General 10/04/09 [employer] CM Arcelia [place] [facility] 09/11/18 Coagulating Drying Supervisor Relationship Specialty Start Date End Date Fartun Downs MD [address] [place] [address] PCP - General 10/04/09 [employer] CM Arcelia [place] [facility] Resource 09/11/18 Coagulating Drying Supervisor Relationship Specialty Start Date End Date Fartun Downs MD [address] [place] [address] PCP - General 10/04/09 [employer] CM Arcelia [place] Community Resource 09/11/18 Coagulating Drying Supervisor Relationship Specialty Start Date End Date Fartun Downs MD [address] [place] [address] PCP - General 10/04/09 [employer] Arcelia Lisbeth [facility] Resource 09/11/18 (unrecognized sect ion and content) No Status Records FoundNo Status Records Found INFORMATION SOURCE (unrecogn ized section and content) DATE CREATED AUTHOR AUTHOR'S ORGANIZ ATION 06/30/2023 [facility] FOR RECORDS PERTAINING TO PATIENTS WHO ARE OR HAVE BEEN ENROLLED IN A CHEMICAL DEPENDENCY/SUBSTANCEABUSE PROGRAM, SOME INFORMATION MAY BE OMITTED. This clinical summary was aggregated from multiple sources. Caution should be exercised in using it in the provision of clinical care. This summary normalizes information from multiple sources, and as a consequence, information in this document may materially change the coding, format and clinical context of patient data. In addition, data may be omitted in some cases. CLINICAL DECISIONS SHOULD BE BASED ON THE PRIMARY CLINICAL RECORDS. [facility]. provides no warranty or guarantee of the accuracy or completeness of information in this document.
== END | disposition home or self-care (01) ==
LOC: CVS 09:01
PROVIDERS: PCP Internal Medicine; Referring Provider Nurse Practitioner Gerontology; Visit Provider Nurse Practitioner Gerontology
DX: R06.00 Dyspnea, unspecified (principal)
CPT/HCPCS: 93306; Q9957; A4216; C8929

== ENCOUNTER 2023-09-15 09:36 | Emergency (ER) | payer MEDICARE, SELFPAY ==
[2023-09-15 09:38] VITALS: BP 134/92; PULSE 86; RESP 16; TEMP 36.4; O2SAT 99; BMI 39.2
--- NOTE | 2023-09-15 09:54 | EDS_ITS ---
HPI History of Present Illness HPI Narrative: Patient presents with pain and mild swelling to his right lower extremity. Patient states it is mainly over the lateral aspect of his right thigh and posterior aspect of his right calf. Patient describes it as aching. Patient states it is constant. Patient states it is worse with movement and with weightbearing. Patient states it is better when he keeps it elevated. Patient denies any paresthesias or weakness. Patient denies any trauma or injury. Patient recently stopped his Coumadin due to eye surgery. Patient restarted that recently. 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 Paroxysmal atrial fibrillation Paroxysmal atrial tachycardia Thoracic aortic aneurysm (TAA) Vertigo Home Medications latanoprost 0.005 % eye drops 1 drp EACH EYE UD 08/19/15 [History Last Taken Unknown] magnesium oxide 400 mg PO BID #180 caps 06/25/21 [Rx Last Taken 04/20/22] multivitamin 1 tab PO DAILY 04/13/22 [History Last Taken Unknown] warfarin 5 mg tablet See Rx Instructions PO DAILY #120 tabs 11/01/22 [Rx Last Taken Unknown] hydrochlorothiazide 12.5 mg tablet 12.5 mg PO DAILY #90 tabs 12/14/22 [Rx Last Taken Unknown] amiodarone 200 mg tablet 100 mg PO DAILY 06/21/23 [History Last Taken Unknown] amlodipine 10 mg tablet 10 mg PO QHS 06/21/23 [History Last Taken Unknown] ezetimibe 10 mg tablet 10 mg PO DAILY 06/21/23 [History Last Taken Unknown] furosemide 40 mg tablet (Lasix) 40 mg PO DAILY #5 tabs 06/21/23 [Rx Last Taken Unknown] levothyroxine 112 mcg tablet 88 mcg PO DAILY 06/21/23 [History Last Taken Unknown] lisinopril 10 mg tablet 10 mg PO DAILY 06/21/23 [History Last Taken Unknown] hydrocodone-acetaminophen 5-325mg 5mg-325mg 1 tab PO Q6H PRN PRN Pain 3 days #10 TABLETS 09/15/23 [Rx Last Taken Unknown] Allergy/AdvReac Type Severity Reaction Status Date / Time latex Allergy Mild Hives Verified 09/15/23 09:37 pravastatin AdvReac Intermediate Myalgias Verified 09/15/23 09:37 simvastatin [From Zocor] AdvReac Intermediate Myalgias Verified 09/15/23 09:37 [id number] Reductase AdvReac MUSCLE Verified 09/15/23 09:37 Inhibitor PAINS Family History Father CAD (coronary artery disease) Mother Arrhythmia Surgical History H/O radiofrequency ablation for complex left atrial arrhythmia (04/04/00) H/O umbilical hernia repair History of appendectomy 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) History of cardioversion (04/20/22) History of left heart catheterization (08/29/19) History of left knee replacement History of tonsillectomy Hx of eye surgery Social History Smoking Status: Former smoker pack-years: 5 how long ago did patient quit smokin alcohol intake: current alcohol intake frequency: holidays/special occasions only substance use type: does not use caffeine: Yes Type: tea Number of servings: 2 what type of physical activity do you participate in: other details: [employer] frequency: 3-4 times per week ROS ROS ED Constitutional Constitutional ED: Denies chills or fever(s) Eyes Eyes: Denies blurry vision or change in vision ENT ENT ED: Denies rhinorrhea or sore throat Cardiovascular Cardiovascular: Denies chest pain or palpitations Respiratory/Chest Respiratory/Chest: Denies cough or dyspnea Gastrointestinal Gastrointestinal: Denies nausea or vomiting Genitourinary Genitourinary ED: Denies dysuria or hematuria Musculoskeletal Musculoskeletal: Denies back pain or neck pain Integumentary Denies abscess or rash Neurologic Neurologic: Denies headache(s) or weakness Allergic/Immunologic Allergic/Immunologic ED: Denies mouth swelling or urticaria EXAM Physical Exam Const Vital Signs: 09/15/23 09:38 Temperature 97.5 F L Temperature Source Temporal Pulse Rate 86 Respiratory Rate 16 Blood Pressure 134/92 H Blood Pressure Mean 106 Pulse Ox 99 Oxygen Delivery Method Room Air Positive well nourished and well developed General Appearance ED: well developed and NAD Neck full ROM and supple Resp normal respiratory effort and clear to auscultation bilaterally Cardio regular rate and regular rhythm GI non-tender and non-distended Palpation: soft Extremity Extremity Narrative: There is tenderness of the lateral aspect of the right thigh and posterior aspect of the right calf. There is mild edema. There is no deformity noted. There is good range of motion. There is no pain with dorsiflexion of the right ankle. Pedal pulses are equal bilaterally. Sensation was intact to light touch in all digits. Strength is 5/5 bilaterally in the lower extremities. Neuro oriented x3, CN's II-XII intact bilaterally, moves all extremities and no sensory deficits noted Sensorium / Orientation: alert Motor Exam: strength 5/5 throughout Psych mental status grossly normal MDM MDM MDM Narrative Medical decision making narrative: Differential diagnosis includes DVT, muscle strain, and arthritis pain. Venous duplex of the right lower extremity will be obtained to assess for DVT. CBC will be obtained to assess for leukocytosis and anemia. Basic metabolic profile will be obtained to assess for electrolyte abnormality and renal function. PT with INR and PTT will be obtained to assess for coagulopathy. History & Record Review Additional record(s) reviewed:: Prior labs Lab Data Lab results narrative: CBC was reviewed and was within normal limits. Basic metabolic profile was reviewed. BUN was slightly elevated at 27 and creatinine was slightly elevated at 1.51. These are consistent with prior results. PT with INR and PTT were reviewed. Pro time was 14.3 and INR was 1.1. PTT was 25.1. Labs: Laboratory Results - last 24 hr 09/15/23 10:30 WBC 7.7 RBC 4.95 Hgb 15.0 Hct 46.3 MCV 93.5 MCH 30.3 MCHC 32.4 RDW Std Deviation 52.3 H RDW Coeff of Madelin 15.2 H Plt Count 214 MPV 10.7 Immature Gran % (Auto) 0.100 Neut % (Auto) 74.1 H Lymph % (Auto) 14.6 L [place] % (Auto) 9.5 Eos % (Auto) 1.0 Baso % (Auto) 0.7 Absolute Neuts (auto) 5.7 Absolute Lymphs (auto) 1.12 Nucleated RBC % 0 PT 14.3 INR 1.1 APTT 25.1 Sodium 140 Potassium 4.4 Chloride 110 H Carbon Dioxide 29.0 Anion Gap 1 L BUN 27 H Creatinine 1.51 H Estim Creat Clear Calc 65.11 Est GFR (MDRD) Af Amer 58 L Est GFR (MDRD) Non-Af 48 L BUN/Creatinine Ratio 17.9 Glucose 95 Calcium 9.3 Radiography Diagnostic Testing: Clinical Impression(s) from Imaging Studies Venous Doppler Study 09/15/23 10:05 Interpretation Summary Acute deep venous thrombosis right gastrocnemius and soleus veins. Patent compressible right great saphenous vein Normal flow patterns left common femoral vein Ordering Physician: Hussein Prieto Referring Physician: Malini Downs M.D. Performed By: Cecilia Elliott RVT Venous duplex of the right lower extremity was obtained. There is DVT of the right gastrocnemius vein and soleus vein. Treatment and Re-Evaluation Narrative: Patient was advised of his findings. Patient was given a dose of [place] here. Since the patient only restarted his Coumadin 2 days ago, his INR is expected to be normal. Patient was instructed to continue his Coumadin and have his INR checked in a couple days. Case was discussed with Dr. Mosher who is covering for Dr. Downs. Patient will be able to follow-up for recheck of his INR. Patient was given a dose of Lovenox here. Patient was instructed to follow-up with his primary care physician tomorrow for INR recheck. Patient understood and was agreeable with the plan. All questions were answered. Discharge Plan Triage Chief Complaint: Lower Extremity Injury ED Provider: Hussein Prieto Dx/Rx/DC Orders Clinical Impression: Deep vein thrombosis (DVT) of right lower extremity Instructions: ED Deep Vein Thrombosis (DVT) Prescriptions: New hydrocodone-acetaminophen [hydrocodone-acetaminophen] 5-325 mg tablet 1 tab PO Q6H PRN PRN (Reason: Pain) 3 Days Qty: 10 0RF No Action hydrochlorothiazide 12.5 mg tablet 12.5 mg PO DAILY Qty: 90 3RF amiodarone 200 mg tablet 100 mg PO DAILY amlodipine 10 mg tablet 10 mg PO QHS ezetimibe 10 mg tablet 10 mg PO DAILY lisinopril 10 mg tablet 10 mg PO DAILY levothyroxine 112 mcg tablet 88 mcg PO DAILY furosemide [Lasix] 40 mg tablet 40 mg PO DAILY Qty: 5 0RF latanoprost 1 DROP bottle 1 drp EACH EYE UD Patient Comments: DIRECTED multivitamin Tablet 1 tab PO DAILY magnesium oxide 400 mg magnesium capsule 400 mg PO BID Qty: 180 3RF warfarin 5 mg tablet See Rx Instructions PO DAILY Qty: 120 3RF Protocol: Dose Management Condition: Tuesday Dose/Route: 0 mg Instruction: 0 tablets Condition: Tuesday Dose/Route: 0 mg Instruction: 0 tablets Condition: Tuesday Dose/Route: 0 mg Instruction: 0 tablets Condition: Tuesday Dose/Route: 0 mg Instruction: 0 tablets Condition: Dose/Route: 0 mg Instruction: 0 tablets Condition: Tuesday Dose/Route: 0 mg Instruction: 0 tablets Condition: Tuesday Dose/Route: 0 mg Instruction: 0 tablets Protocol Text: Adjustment Start Date: Tuesday09/09/23 INR Value: 1.8 INR Date: 09/09/23 Recheck Date: 09/16/23 Rx Instructions: 5 mg 4 days a week, 7.5 mg (1.5 tabs) Tuesday, Tuesday, Tuesday Primary Care Provider: Malini Downs Referrals: Malini Downs MD [Primary Care Provider] - As soon as possible Disposition Disposition: Home, Self Care
--- NOTE | 2023-09-15 10:05 | VDLE_ITS ---
Reason For Study: Right leg pain RIGHT LEFT GSV is normal. CFV is compressible, spontaneous, phasic, CFV is compressible, spontaneous, phasic, competent, and demonstrates normal competent and demonstrates normal augmentation. augmentation. FV is compressible, spontaneous, phasic, competent and demonstrates normal augmentation. POP V is compressible, spontaneous, phasic, competent and demonstrates normal augmentation. T/P Trunk is compressible. PTV is compressible. RT PerV is compressible. Acute deep vein thrombosis is noted in the GastrocV and SoleusV. It is dilated and NONCOMPRESSIBLE. Thrombus from GastrocV does not extend into PTV. Procedure This is a venous duplex using B-mode, color flow and spectral Doppler. Exam performed portable in ED. A preliminary report was called and/or faxed to Dr. Prieto. VL/Venous Duplex US, Unilateral Interpretation Summary Acute deep venous thrombosis right gastrocnemius and soleus veins. Patent compressible right great saphenous vein Normal flow patterns left common femoral vein Ordering Physician: Hussein Prieto Referring Physician: Malini Downs M.D. Performed By: Cecilia Elliott RVT
[2023-09-15 10:49] LABS: Absolute Lymphocyte Count 1.12 X10^3/uL (0.83-4.51); Absolute Neutrophil Count 5.7 X10^3/uL (2.0-7.7); Basophil# 0.05 X10^3/uL; Basophil% 0.7 % (0-1); Eosinophil# 0.08 X10^3/uL; Hematocrit 46.3 % (40-54); Lymphocyte # 1.12 X10^3/ul (0.83-4.51); Lymphocyte % 14.6 % (19-41); Mean Corp Hgb Conc 32.4 g/dL (32-36); Mean Corpuscular Hgb 30.3 pg (27.0-32.0); Mean Corpuscular Volume 93.5 fL (80-94); Mean Platelet Vol. 10.7 fl (6.2-12.0); Monocyte# 0.73 X10^3/uL; Monocyte% 9.5 % (0-10); NRBC Flagged by Analyzer 0 % (0-5); Neutrophil # 5.68 X10^3/uL (2.7-7.7); Neutrophil % 74.1 % (47-70); Platelet Count 214 K/mm3 (150-450); RBC Distribution Width CV 15.2 % (11.6-14.6); RBC Distribution Width SD 52.3 fl (35.1-43.9); Red Blood Count 4.95 M/mm3 (4.6-6.2); White Blood Count 7.7 K/mm3 (4.4-11.0)
[2023-09-15 11:01] LABS: International Normalized Ratio 1.1; Prothrombin Time (Protime)PT. 14.3 SECONDS (11.7-14.9)
[2023-09-15 11:02] LABS: Partial Thromboplast Time 25.1 Seconds (24.1-36.2)
--- OUTSIDE RECORDS SUMMARY | 2023-09-15 11:02 | XMS RPT_ITS | CCD ---
Author Name Unknown Address [address] [place] [address] Organization [facility] Team Providers Care Head Of Global Strategic Partnerships Name Role Phone Gldais Boateng Unavailable Unavailable Natalie RN, Estrellita Newton Unavailable Unavailable MOIZ Graves, Elda Mathur Unavailable Unavailabl e Gladis Boateng Unavailable Unavailable Himanshu SHAH, Fartun Moise Primary Care Provider Himanshu SHAH Fartun D Primary Care Provider Fartun Downs [...] [PRAVASTATIN] drug allergy 3 Other: See Comments [facility] Work Phone: [phone] (7 sources) simvastatin; Translations: [ZOCOR] allergy to substance 1 Myalgias [facility] Work Phone: [phone] (20 sources) simvastatin; Translations: [SIMVASTATIN] food allergy 4 Other: See Comments [facility] Work Phone: (19 sources) atorvastatin; Translations: [ATORVASTATIN] Drug Allergy 6 Myalgia [facility] Work Phone: (19 sources) Cefuroxime; Translations: [CEFUROXIME] Drug Allergy 1 Diarrhea [facility] Work Phone: (19 sources) HMG-CoA reductase inhibitor; Translations: [GVBRUKR-LCV-BX A REDUCTASE INHIBITORS] Drug Intolerance 6 Myalgia [facility] Work Phone: (19 sources) levoFLOXacin; Translations: [LEVOFLOXACIN] Drug Allergy 4 Other: See Comments [facility] Work Phone: (19 sources) Lovastatin; Translations: [LOVASTATIN] Drug Allergy 4 Other: See Comments [facility] Work Phone: (6 sources) Prazosin; Translations: [PRAZOSIN] Drug Allergy 3 Intolerance [facility] Work Phone: Medications Current Medications Medication [...] Coronary arteriosclerosis; Translations: [Atherosclerotic heart disease of [place] coronary artery without angina pectoris] Onset: 12-23-2010 [...] (2 sources) Patient encounter status; Translations: [Other extermination inspector (current) drug therapy] Episodic Other aftercare (1 [...] (3 sources) Long-term drug therapy; Translations: [Other extermination inspector (current) drug therapy] Onset: 12-23-2010 12-23-2010 Past [...] 12-23-2010 Episodic Other aftercare (1 source) Other group home (current) drug therapy; Translations: [Other extermination inspector (current) drug therapy] Onset: 12-23-2010 12-23-2010 Episodic [...] 09:33-0400 Body weight 145.15 kg Gladis Soliz CARGO AGENT.TOP TAPER MACHINE Work Phone: [facility] 05-23-2023 09:33-0400 Diastolic blood pressure 72 mm[Hg] Gladis Soliz CARGO AGENT.TOP TAPER MACHINE Work Phone: [facility] 05-23-2023 09:33-0400 Heart rate 78 /min Gladis Soliz CARGO AGENT.TOP TAPER MACHINE Work Phone: [facility] 05-23-2023 09:33-0400 Respiratory rate 16 /min Gladis Soliz CARGO AGENT.TOP TAPER MACHINE Work Phone: [facility] 05-23-2023 09:33-0400 Systolic blood pressure 106 mm[Hg] Gladis Soliz CARGO AGENT.TOP TAPER MACHINE Work Phone: [facility] 04-25-2023 14:50-0400 Body height 193 cm Matt Griffin MD Work Phone: [facility] 04-25-2023 14:50-0400 Body temperature 97.7 [degF] Matt Griffin MD Work Phone: [facility] 04-25-2023 14:50-0400 Body weight 146.15 kg Matt Griffin MD Work Phone: [facility] 04-25-2023 14:50-0400 Diastolic blood pressure 86 mm[Hg] Matt Griffin MD Work Phone: [facility] 04-25-2023 14:50-0400 Heart rate 78 /min Matt Griffin MD Work Phone: [facility] 04-25-2023 14:50-0400 Respiratory rate 12 /min Matt Griffin MD Work Phone: [facility] 04-25-2023 14:50-0400 SaO2% (BldA) [Mass fraction] 97 % Matt Griffin MD Work Phone: [facility] 04-25-2023 14:50-0400 Systolic blood pressure 120 mm[Hg] Matt Griffin MD Work Phone: [facility] 04-19-2023 07:14-0400 Body weight 144.24 kg Gladis Soliz CARGO AGENT.TOP TAPER MACHINE Work Phone: [facility] 04-19-2023 07:14-0400 Diastolic blood pressure 83 mm[Hg] Gladis Soliz CARGO AGENT.TOP TAPER MACHINE Work Phone: [facility] 04-19-2023 07:14-0400 Heart rate 72 /min Gladis Soliz CARGO AGENT.TOP TAPER MACHINE Work Phone: [facility] 04-19-2023 07:14-0400 Respiratory rate 16 /min Gladis Soliz CARGO AGENT.TOP TAPER MACHINE Work Phone: [facility] 04-19-2023 07:14-0400 SaO2% (BldA) [Mass fraction] 97 % Gladis Soliz CARGO AGENT.TOP TAPER MACHINE Work Phone: [facility] 04-19-2023 07:14-0400 Systolic blood pressure 122 mm[Hg] Gladis Soliz CARGO AGENT.TOP TAPER MACHINE Work Phone: [facility] 04-08-2023 11:13-0400 Body height 193 cm Pac 1 Work Phone: [facility] 04-08-2023 11:13-0400 Body temperature 97.59 [degF] Pacc 1 Work Phone: [facility] 04-08-2023 11:13-0400 Body weight 144.7 kg Pacc 1 Work Phone: [facility] 04-08-2023 11:13-0400 Diastolic blood pressure 82 mm[Hg] Pacc 1 Work Phone: [facility] 04-08-2023 11:13-0400 Heart rate 76 /min Pacc 1 Work Phone: [facility] 04-08-2023 11:13-0400 Respiratory rate 16 /min Pacc 1 Work Phone: [facility] 04-08-2023 11:13-0400 SaO2% (BldA) [Mass fraction] 96 % Pacc 1 Work Phone: [facility] 04-08-2023 11:13-0400 Systolic blood pressure 120 mm[Hg] Pacc 1 Work Phone: [facility] 12-08-2021 09:03-0400 Body weight 149.23 kg Fartun Downs MD Work Phone: [facility] 12-08-2021 09:03-0400 Diastolic blood pressure 64 mm[Hg] Fartun Downs MD Work Phone: [facility] 12-08-2021 09:03-0400 Heart rate 68 /min Fartun Downs MD Work Phone: [facility] 12-08-2021 09:03-0400 Systolic blood pressure 102 mm[Hg] Fartun Downs MD Work Phone: [facility] 01-10-2017 10:01-0400 BMI (Body Mass Index) [...] Start: 06-24-2023 End: 06-25-2023 ambulatory FARTUN DOWNS Facility:[facility] Start: 06-17-2023 ambulatory Gladis DEAN Work Phone: [facility] Procedures Date Procedure Procedure Detail Performing Clinician [...] Work Phone: Start: 07-30-2015 End: 08-23-2015 *BMP Mtat Cates MD Work Phone: Start: 07-30-2015 End: [...] Activity Detail Author Start: 12-24-2027 Colonoscopy COLONOSCOPY [facility] Start: 12-24-2027 COLORECTAL CANCER SCREENING COLORECTAL CANCER SCREENING [facility] Start: 04-08-2026 Diabetes Screening Diabetes Screenin g [facility] Start: 01-27-2026 DIABETES SCREEN DIABETES SCREEN [facility] Start: 11-28-2025 LIPID SCREEN LIPID SCREEN [facility] Start: 12-08-2024 DIABETES SCREEN DIABETES SCREEN [facility] Start: 05-23-2024 BP Controlled (<130/80) BP Controlle d (<130/80) [facility] Start: 04-19-2024 BP Controlled (<130/80) BP Controlle d (<130/80) [facility] Start: 04-08-2024 Hemoglobin/Hematocrit Hemoglobin/Hem [facility] Start: 04-08-2024 Serum Creatinine Serum Creatinine [facility] Start: 12-23-2023 ANNUAL PCP TEAM CLIMATOLOGY TEACHER VICTOR MANUEL DISEASE VISIT ANNUAL PCP TEAM CHRONIC DISEASE VISIT [facility] Start: 12-23-2023 BP CONTROLLED (<130/80) BP CONTROLLE D (<130/80) [facility] Start: 03-25-2023 Covid-19 Vaccine ( season) Covid-19 Vaccine ( season) [facility] Start: 03-25-2023 Influenza vaccination C [facility] Start: 03-03-2023 ANNUAL PCP TEAM CLIMATOLOGY TEACHER VICTOR MANUEL DISEASE VISIT ANNUAL PCP TEAM CHRONIC DISEASE VISIT [facility] Start: 12-08-2022 Adult depression screening assessment DEPRESSION SCREENING [facility] Start: 12-08-2022 ANNUAL PCP TEAM CLIMATOLOGY TEACHER VICTOR MANUEL DISEASE VISIT ANNUAL PCP TEAM CHRONIC DISEASE VISIT [facility] Start: 12-08-2022 BP CONTROLLED (<130/80) BP CONTROLLE D (<130/80) [facility] Start: 12-08-2022 [facility]: 12-08-2022 SERUM CREATININE SERUM CREATININE [facility] Start: 12-08-2022 SHINGRIX VACCINE (2 of 3) SHINGRIX V ACCINE (2 of 3) [facility] Immunizations Immunization Date Immunization Notes Care Provider Anabel gr 05-05-2022 influenza (aIIV4) vaccine, age 65+ yr, quadrivalent, PF (FLUAD QUAD) Fartun Downs MD Work Phone: [facility] 05-05-2022 influenza virus vacc ine, unspecified formulation [facility] 1 Work Phone: [facility] 05-28-2021 influenza (aIIV4) vaccine, age 65+ yr, quadrivalent, PF (FLUAD QUAD) Fartun Downs MD Work Phone: [facility] 05-05-2020 influenza, high-dose , quadrivalent vaccine (FLUZONE HIGH DOSE QUADRIVALENT) Fartun Downs MD Work Phone: [facility] 05-11-2019 influenza, high dose seasonal, preservative-free Fartun Downs MD Work Phone: [facility] Work Phone: 05-12-2018 influenza, high dose seasonal, preservative-free Fartun Downs MD Work Phone: [facility] Work Phone: 05-18-2017 influenza, high dose seasonal, preservative-free Fartun Downs MD Work Phone: [facility] Work Phone: 05-07-2016 influenza, high dose seasonal, preservative-free Fartun Downs MD Work Phone: [facility] 05-07-2016 pneumococcal polysaccharide vaccine, 23 valent Fartun Downs MD Work Phone: [facility] 06-06-2015 pneumococcal conjuga te vaccine, 13 valent Fartun Downs MD Work Phone: [facility] Work Phone: 05-06-2015 influenza, high dose seasonal, preservative-free Fartun Downs MD Work Phone: [facility] 05-01-2014 influenza, seasonal, injectable Fartun Downs MD Work Phone: [facility] 04-28-2013 influenza virus vacc ine, unspecified formulation Fartun Downs MD Work Phone: [facility] Work Phone: 06-07-2012 zoster vaccine, live Fartun gurrola MD Work Phone: [facility] 04-15-2012 influenza virus vacc ine, unspecified formulation Fartun Downs MD Work Phone: [facility] Work Phone: 07-07-2009 novel influenza-H1N1 -09, all formulations Fartun Downs MD Work Phone: [facility] Work Phone: 10-17-2008 tetanus toxoid, redu edmar diphtheria toxoid, and acellular pertussis vaccine, adsorbed Fartun Downs MD Work Phone: [facility] 06-01-2006 influenza virus vacc ine, unspecified formulation Fartun Downs MD Work Phone: [facility] 05-19-2006 pneumococcal polysaccharide vaccine, 23 valent Fartun Downs MD Work Phone: [facility] Payers Date Payer Category Payer Medicare A[employer]NA MEDICARE A ETNA MEDICARE PPO [id number] 2017-Present [phone] [address] [place] [address] O [id number] 2017 Medicare AETNA MEDICARE A ETNA MEDICARE PPO [id number] 2017-Present [phone] [address] [place] [address] [facility] [id number] 2017 Medicare [id number] Social History Date Type Detail Facility Start: 08-01-2017 End: 03-29-2023 Tobacco smoking status NHIS Ex-smoker [facility] End: 07-25-1971 History of tobacco use Current smoker [facility] Work Phone: End: 07-25-1971 History of tobacco use Cigarette Smoker [facility] Work Phone: Start: 12-08-2021 End: 04-19-2023 Alcohol intake Current drinker of alcohol (finding) [facility] Start: 05-02-2020 End: 12-19-2022 History SDOH Alcohol Frequency 3 [facility] Start: 05-02-2020 History SDOH Alcohol Std Drinks 98 [facility] Start: 09-10-2019 End: 12-19-2022 History SDOH Alcohol Binge 1 [facility] Start: 05-01-2010 History SDOH Alcohol Comment 2 drinks a month [facility] Start: 09-10-2019 End: 12-19-2022 History SDOH Social Connections Phone 5 [facility] Start: 09-10-2019 End: 12-19-2022 History SDOH Physical Activity DPW 2 [facility] Start: 05-02-2020 End: 12-19-2022 History SDOH Physical Activity MPS 4 [facility] Start: 09-09-2019 Education 12 [facility] Start: 1945 Sex Assigned At Male C [facility] Work Phone: Start: 11-28-2021 End: 12-08-2021 Exposure to SARS-CoV-2 (event) Not sure [facility] Start: 08-01-2017 End: 12-19-2022 Cigarettes smoked current (pack per day) - Reported 1.5 [facility] Start: 08-01-2017 End: 03-29-2023 Tobacco use and exposure Smokeless tobacco non-user [facility] Work Phone: Start: 03-03-2022 History SDOH Physica l Activity MPS 6 [facility] Start: 02-21-2022 End: 03-03-2022 Exposure to SARS-CoV-2 (event) Yes [facility] Start: 12-19-2022 End: 12-22-2022 Social connection and isolation panel [facility] Are you now , , , , never or living with a partner? [facility] How often to you hav e a drink containing alcohol? 2-4 times a month [facility] How many standard drinks containing alcohol do you have on a typical day? 1 or 2 [facility] How often do you hav e 6 or more drinks on 1 occasion? Less than monthly [facility] How hard is it for y ou to pay for the very basics like food, housing, medical care, and heating Not hard at all [facility] Do you feel stress - tense, restless, nervous, or anxious, or unable to sleep at night because your mind is troubled all the time - these days [OSQ] Not at all [facility] (I/We) worried leopoldo er (my/our) food would run out before (I/we) got money to buy more. Never true [facility] In the past 12 month s, was there a time when you were not able to pay the mortgage or rent on time? No [facility] Start: 10-06-2018 Gender identity Identifies as male gender (finding) [facility] Work Phone: Start: 10-06-2018 Sexual orientation Heterosexual (fin brenda) [facility] Work Phone: Start: 04-25-2023 End: 05-23-2023 Alcohol intake Ex-drinker (finding) [facility] Medical Equipment Procedure Code Equipment Code Equipment Original Text Equipment Identifier Dates Cement Simplex P Bone Radiopaque Full Dose Sterile - [id number] Start: 06-02-2018 Cement Simplex P Bone Radiopaque Full Dose Sterile - [id number] Start: 06-02-2018 Cement Simplex P Bone Radiopaque Full Dose Sterile - [id number] Start: 09-11-2018 Graft Hemashield Dolliver 30mm Straight Tube Woven 2 Velour Collagen 30cm - [id number] Start: 08-31-2019 War Thk1.65mm P tfe 4x.5in Cardiovascular Sterile - [id number] Start: 08-31-2019 War Thk1.65mm P tfe 4x.5in Cardiovascular Sterile - [id number] Start: 08-31-2019 Insert Triathlon 8 X3 9mm Tibial Cruciate Retaining Knee - [id number] Start: 06-02-2018 Component Triath gabby 8 Femoral Cruciate Retain Cemented Knee Left - [id number] Start: 06-02-2018 Baseplate Triath gabby 8 Tibial Primary Cement Knee - [id number] Start: 06-02-2018 Component Triath gabby 40mm X3 11mm Patellar Asymmetric Knee - [id number] Start: 06-02-2018 Component Triath gabby 8 Femoral Cruciate Retain Cemented Knee Right - [id number] Start: 09-11-2018 Component Triath gabby 40mm X3 11mm Patellar Asymmetric Knee - [id number] Start: 09-11-2018 Insert Triathlon 8 X3 9mm Tibial Cruciate Retaining Knee - [id number] Start: 09-11-2018 Baseplate Triath gabby 8 Tibial Primary Cement Knee - [id number] Start: 09-11-2018 Clinical Notes 09-05-2019 to 06-24-2023 Telephone Encounter - Beatriz Mejia MECHANIST - 06/17/2023 2:05 PM Gladis Galo APRN.TOP TAPER MACHINE - 05/23/2023 9:40 AM EDTTelephone Encounter - Gladis Soliz APRN.TOP TAPER MACHINE - 05/12/2023 4:33 PM EDT Note Date & Type Note Facility 06-24-2023 Note HNO ID: [id number] Author: FARTUN DOWNS MD Service: ? Author Type: Physician Type: Progress Notes Filed: 07/28/2023 23:16 Note Text: This note was created using Luvocracy[employer]. Subjective Nitin Ochoa is a 78 year old male. Patient presents with: F/U 6 months: Labs scanned from [facility] SUBJECTIVE: Nitin Ochoa is a 78 year old year old gentleman here today for 6 month follow up appointment for review of medical conditions. Reviewed labs. Was nonfasting. TSH was up and T3 down. Constipation and some fatigue. Noted that Lasix was added to take as needed (HCTZ on hold when takes this). Was having more swelling. Also chronic a fib. so that also contributes to fatigue. Limb movements in middle of the night has improved. Gladis ordered MRI and neuro consult. Stress induced appears to be major part. Was having strange dreams and this is better. Was once or twice a week. Did not tolerate prazosin. PAST MEDICAL HISTORY Diagnosis Date Abscess of [...] Coumadin, mag ox. Paroxysmal supraventricular tachycardia 03/17/2011 [facility], Dr Arana PMH - PAST MEDICAL HISTORY OF glaucoma PMH - PAST MEDICAL HISTORY OF blood clots in lungs AND legs Postherpetic neuralgia--left lower rib cage 08/24/2018 Primary osteoarthritis of left knee 05/03/2018 Added automatically from request for surgery [id number] Sebaceous cyst Sleep pattern disturbance 03/2023 Unspecified essential hypertension Current Outpatient Medications Medication Sig FUROSEMIDE ORAL Take 1 tablet by mouth once daily. Taking for a few days and holding HCTZ levothyroxine (SYNTHROID) 88 mcg tablet Take 1 tablet by mouth once daily. amLODIPine (NORVASC) 10 mg tablet Take 10 mg by mouth daily at bedtime. amiodarone (PACERONE) 100 mg tablet Take 1 [...] 10 mg by mouth daily at bedtime.) hydroCHLOROthiazide 12.5 mg tablet Take 1 tablet by mouth once daily. (Patient not taking: Reported on 06/24/2023) No current facility-administered medications for this visit. Review of Systems Objective BP 117/84 Pulse 79 Temp 36.7 ?C (98 ?F) Resp 18 Wt (!) 145.2 kg (320 lb) SpO2 97% BMI 38.95 kg/m? Last 5 Encounter Wt Readings: Date: Wt: 06/24/2023 145.2 kg (320 lb) 05/23/2023 145.2 kg (320 lb) 04/25/2023 146.1 kg (322 lb 3.2 oz) 04/19/2023 144.2 kg (318 lb) 04/08/2023 144.7 kg (319 lb) No waist measurement recorded Estimated body mass index is 38.95 kg/m? as calculated from the following: Height as of 04/25/23: 193 cm (6' 4 ). Weight as of this encounter: 145.2 kg (320 lb). Last 5 Encounter BP Readings: Date: BP: 06/24/2023 117/84 05/23/2023 106/72 04/25/2023 120/86 04/19/2023 122/83 04/13/2023 86/49 Physical Exam Vitals reviewed. Constitutional: Appearance: Normal appearance. Eyes: Conjunctiva/sclera: Conjunctivae normal. Cardiovascular: Rate and Rhythm: Normal rate. Rhythm irregularly irregular. Heart sounds: Normal heart sounds. Pulmonary: Effort: [...] and Plan Encounter Diagnosis ICD-10-CM 1. Acquired (more content not included)... [facility] 06-17-2023 Miscellaneous Notes Patient is requesting that [...] Beatriz Mejia LPN documented in this encounter [facility] 05-23-2023 Note HNO ID: [id number] Author: Gladis Soliz APRN.TOP TAPER MACHINE Service: ? 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 Followed by [facility] cardiology. Seen by Dr. Perez [...] aches Simvastatin Other: See Comments muscle aches Qayxtlq-Akg-Ohq Red* Myalgia tried them all Ceftin [Cefuroxime] Diarrhea Medication amLODIPine (NORVASC) 10 mg tablet Take 10 mg by mo (more content not included)... [facility] 05-23-2023 History of Presen t illness Narrative SUBJECTIVE: RSV Vaccine(1 - 1-dose 60+ series) Never done Shingrix Vaccine(2 of 3) due on 08/02/2012 DTaP,Tdap,Td Vaccine(2 - Td or Tdap) due on 10/17/2018 LDL Cholesterol due on 11/28/2021 Advance Directive Discussion due on 07/25/2022 Influenza Vaccine(1) due on 03/25/2023 Covid-19 Vaccine(2022- season) due on 03/25/2023 HPI Nitin Ochoa is a 78 year old male. 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 Followed by [facility] cardiology. Seen by Dr. Perez [...] aches Simvastatin Other: See Comments muscle aches Bpbehyb-Tfp-Qja Red* Myalgia tried them all Ceftin [Cefuroxime] [...] Coumadin, mag ox. Paroxysmal supraventricular tachycardia 03/17/2011 [facility], Dr Arana PMH - PAST MEDICAL HISTORY OF glaucoma PMH - PAST MEDICAL HISTORY OF blood clots in lungs & legs Postherpetic neuralgia--left lower rib cage 08/24/2018 Primary osteoarthritis of left knee 05/03/2018 Added automatically from request for surgery [id number] Sebaceous cyst Sleep pattern disturbance 03/2023 Unspecified [...] Abs Lymph 1.00 - 4.00 k/uL 1.26 [place]% % 11.5 Abs [place] <0.87 k/uL 0.54 Eosin% % 3.8 Abs [...] changes of presumed small vessel ischemic disease Patrol Conductor: MATTI Transcribe Date/Time: Nov 21 2017 11:55A [...] Keep scheduled follow up MD Gladis Diaz APRN.TOP TAPER MACHINE Medical Decision Making: Problems: Moderate: 1+ chronic illnesses with change Risk: Moderate: Drug management Medical Decision Making Level: 4 - Moderate documented in this encounter [facility] 05-18-2023 Note HNO ID: [id number] Author: Carmen Contreras RT(R) Service: ? Author [...] DATE: May 18, 2023 TIME: 2:49 PM [facility] 05-12-2023 Miscellaneous Notes Reports feeling short of breath on prazosin. Offer visit if willing for recheck documented in this encounter [facility] 05-05-2023 Note HNO ID: [id number] Author: Matt Griffin MD Service: ? Author [...] follow-up with me on an as-needed basis. [facility] 05-05-2023 History of Presen t illness [...] an as-needed basis. documented in this encounter [facility] 04-19-2023 Note HNO ID: [id number] Author: Gladis Soliz APRN.TOP TAPER MACHINE Service: ? 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 Followed by [facility] cardiology. Seen by Dr. Perez [...] aches Simvastatin Other: See Comments muscle aches [place]munewd-Lvr-Fce Red* Myalgia tried them all Ceftin [Cefuroxime] [...] of other skin (more content not included)... [facility] 04-19-2023 Instructions Gladis Soliz APRN.CNS - [...] if this helps. 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 Followed by [facility] cardiology. Seen by Dr. Perez [...] aches Simvastatin Other: See Comments muscle aches Gbqeqpb-Vfn-Awx Red* Myalgia tried them all Ceftin [Cefuroxime] [...] mag ox. Paroxysmal supraventricular tachycardia (HCC) 03/17/2011 [facility], Dr Arana PMH - PAST MEDICAL HISTORY OF glaucoma PMH - PAST MEDICAL HISTORY OF blood clots in lungs & legs Postherpetic neuralgia--left lower rib cage 08/24/2018 Primary osteoarthritis of left knee 05/03/2018 Added automatically from request for surgery [id number] Sebaceous cyst Unspecified essential hypertension Social History [...] Abs Lymph 1.00 - 4.00 k/uL 1.26 [place]% % 11.5 Abs [place] <0.87 k/uL 0.54 Eosin% % 3.8 Abs [...] changes of presumed small vessel ischemic disease Patrol Conductor: MATTI Transcribe Date/Time: Nov 21 2017 11:55A Dictated by : JOSHUA LEVINE MD This examination was interpreted and the report reviewed and electronically signed by: JOSHUA LEVINE MD on Nov 21 2017 12:00PM EST Results-Findings * * *Final Report* * * DATE OF EXAM: Nov 21 2017 11:35AM [facility] [id number] - MRI BRAIN WO/W IVCON [...] follow up visit with me. Gladis Soliz APRN.TOP TAPER MACHINE Medical Decision Making: Problems: Moderate: 1+ chronic illnesses with change Data: Unique test result(s) reviewed: 3+ Unique test(s) ordered: 1 Risk: Moderate: Drug management Medical Decision Making Level: 4 - Moderate documented in this encounter [facility] documented as of this encounter (statuses as of 04/19/2023) [facility]09-20-2023 History of Past illness Narrative* Problem [...] op - pt has own machine from [place]. [facility] F2F placed. DC home with [facility] 09/08/19. Discharge Planning: Anticipated Discharge Date: 09/08 [...] This is a 74 y/o male from [place], [place] here for [facility]. DC home with [facility] 09/08/19. Pre-op testing 08/27/2019 01/03/2020 Overview: HEART [...] SERVICE: 9:31 AM CHECKED BY: Meli Garay APRN.SAP SECURITY CONSULTANT August 30, 2019 1:14 PM History of pulmonary embolism 09/04/2018 08/31/2019 History of DVT (deep vein thrombosis) 09/04/2018 08/31/2019 Primary localized osteoarthr itis of right knee 08/22/2018 09/12/2018 Overview: Added automatically from request for surgery [id number] Primary osteoarthritis of left knee 05/03/2018 08/24/2018 Overview: Added automatically from request for surgery [id number] Anticoagulated on Coumadin 11/28/2016 0 08/31/2019 Imaging abnormality 10/20/2012 12/04/19 21 Heel spur 10/28/2011 12/03/2020 Paroxysmal supraventricular tachycardia 03/17/2011 04/07/2021 Overview: [facility], Dr Arana H/O: hematuria [...] of this encounter (statuses as of 05/05/2023) [facility] History of Past illness Narrative* Problem [...] op - pt has own machine from [place]. [facility] F2F placed. DC home with [facility] 09/08/19. Discharge Planning: Anticipated Discharge Date: 09/08 [...] This is a 74 y/o male from [place], [place] here for OHS. DC home with [facility] 09/08/19. Pre-op testing 08/27/2019 01/03/2020 Overview: HEART [...] SERVICE: 9:31 AM CHECKED BY: Meli Garay APRN.SAP SECURITY CONSULTANT August 30, 2019 1:14 PM History of pulmonary embolism 09/04/2018 08/31/2019 History of DVT (deep vein thrombosis) 09/04/2018 08/31/2019 Primary localized osteoarthr itis of right knee 08/22/2018 09/12/2018 Overview: Added automatically from request for surgery [id number] Primary osteoarthritis of left knee 05/03/2018 08/24/2018 Overview: Added automatically from request for surgery [id number] Anticoagulated on Coumadin 11/28/2016 0 08/31/2019 Imaging abnormality 10/20/2012 12/04/19 21 Heel spur 10/28/2011 12/03/2020 Paroxysmal supraventricular tachycardia 03/17/2011 04/07/2021 Overview: [facility], Dr Arana H/O: hematuria [...] 04/07/2021 Overview: History Pre-op on coumadin/BB Assessment 2./7 Asc [...] of this encounter (statuses as of 05/12/2023) [facility] History of Past illness Narrative* Problem [...] op - pt has own machine from [place], [place] C F2F placed. DC home with [facility] 09/08/19. Discharge Planning: Anticipated Discharge Date: 09/08 [...] This is a 74 y/o male from [place], [place] here for OHS. DC home with [facility] 09/08/19. Pre-op testing 08/27/2019 01/03/2020 Overview: HEART [...] SERVICE: 9:31 AM CHECKED BY: Meli Garay APRN.SAP SECURITY CONSULTANT August 30, 2019 1:14 PM History of pulmonary embolism 09/04/2018 08/31/2019 History of DVT (deep vein thrombosis) 09/04/2018 08/31/2019 Primary localized osteoarthr itis of right knee 08/22/2018 09/12/2018 Overview: Added automatically from request for surgery [id number] Primary osteoarthritis of left knee 05/03/2018 08/24/2018 Overview: Added automatically from request for surgery [id number] Anticoagulated on Coumadin 11/28/2016 0 08/31/2019 Imaging [...] of this encounter (statuses as of 05/24/2023) [facility] History of Past illness Narrative* Problem [...] op - pt has own machine from [place] [facility] F2F placed. DC home with [facility] 09/08/19. Discharge Planning: Anticipated Discharge Date: 09/08 [...] This is a 74 y/o male from [place], [place] here for OHS. DC home with [facility] 09/08/19. Pre-op testing 08/27/2019 01/03/2020 Overview: HEART [...] SERVICE: 9:31 AM CHECKED BY: Meli Garay APRN.SAP SECURITY CONSULTANT August 30, 2019 1:14 PM History of pulmonary embolism 09/04/2018 08/31/2019 History of DVT (deep vein thrombosis) 09/04/2018 08/31/2019 Primary localized osteoarthr itis of right knee 08/22/2018 09/12/2018 Overview: Added automatically from request for surgery [id number] Primary osteoarthritis of left knee 05/03/2018 08/24/2018 Overview: Added automatically from request for surgery [id number] Anticoagulated on Coumadin 11/28/2016 0 08/31/2019 Imaging abnormality 10/20/2012 12/04/19 21 Heel spur 10/28/2011 12/03/2020 Paroxysmal supraventricular tachycardia 03/17/2011 04/07/2021 Overview: [facility], Dr Arana H/O: hematuria 05/12/2009 12/03/2020 Routine general medical exam ination at a health care facility 10/23/2008 11/11/2014 Overview: Lucian 1.2 in 09-30 Empirically treated with Levaquin [...] of this encounter (statuses as of 06/17/2023) [facility] History of Past illness Narrative* Problem [...] op - pt [place] own machine from [place] [facility] F2F placed. DC home with [facility] 09/08/19. Discharge Planning: Anticipated Discharge Date: 09/08 [...] This is a 74 y/o male from [place], [place] here for OHS. DC home with [facility] 09/08/19. Pre-op testing 08/27/2019 01/03/2020 Overview: HEART [...] SERVICE: 9:31 AM CHECKED BY: Meli Garay APRN.SAP SECURITY CONSULTANT August 30, 2019 1:14 PM History of pulmonary embolism 09/04/2018 08/31/2019 History of DVT (deep vein thrombosis) 09/04/2018 08/31/2019 Primary localized osteoarthr itis of right knee 08/22/2018 09/12/2018 Overview: Added automatically from request for surgery [id number] Primary osteoarthritis of left knee 05/03/2018 08/24/2018 Overview: Added automatically from request for surgery [id number] Anticoagulated on Coumadin 11/28/2016 0 08/31/2019 Imaging [...] of this encounter (statuses as of 06/17/2023) [facility] History of Past illness Narrative* Problem [...] op - pt has own machine [place] [facility] F2F placed. DC home with [facility] 09/08/19. Discharge Planning: Anticipated Discharge Date: 09/08 [...] This is a 74 y/o male from [place], [place] here for OHS. DC home with [facility] 09/08/19. Pre-op testing 08/27/2019 01/03/2020 Overview: HEART [...] SERVICE: 9:31 AM CHECKED BY: Meli Garay APRN.SAP SECURITY CONSULTANT August 30, 2019 1:14 PM History of pulmonary embolism 09/04/2018 08/31/2019 History of DVT (deep vein thrombosis) 09/04/2018 08/31/2019 Primary localized osteoarthr itis of right knee 08/22/2018 09/12/2018 Overview: Added automatically from request for surgery [id number] Primary osteoarthritis of left knee 05/03/2018 08/24/2018 Overview: Added automatically from request for surgery [id number] Anticoagulated on Coumadin 11/28/2016 0 08/31/2019 Imaging [...] of this encounter (statuses as of 06/17/2023) [facility] History of Past illness Narrative* Problem [...] op - pt has own machine from [place] [facility] F2F placed. DC home with [facility] 09/08/19. Discharge Planning: Anticipated Discharge Date: 09/08 [...] This is a 74 y/o male from [place], [place] here for OHS. DC home with [facility] 09/08/19. Pre-op testing 08/27/2019 01/03/2020 Overview: HEART [...] SERVICE: 9:31 AM CHECKED BY: Meli Garay APRN.SAP SECURITY CONSULTANT August 30, 2019 1:14 PM History of pulmonary embolism 09/04/2018 08/31/2019 History of DVT (deep vein thrombosis) 09/04/2018 08/31/2019 Primary localized osteoarthr itis of right knee 08/22/2018 09/12/2018 Overview: Added automatically from request for surgery [id number] Primary osteoarthritis of left knee 05/03/2018 08/24/2018 Overview: Added automatically from request for surgery [id number] Anticoagulated on Coumadin 11/28/2016 0 08/31/2019 Imaging abnormality 10/20/2012 12/04/19 21 Heel spur 10/28/2011 12/03/2020 Paroxysmal supraventricular tachycardia 03/17/2011 04/07/2021 Overview: [facility], Dr Arana H/O: hematuria 05/12/2009 12/03/2020 Routine general medical exam ination at a health care facility 10/23/2008 11/11/2014 Overview: Creat 1.2 in 09-30 Empirically treated with Levaquin in 10-31 per Francoise/Ron: CXR showed linear atelectasis, no CBC Obesity, [...] of this encounter (statuses as of 06/17/2023) [facility] Instructions* Patient Instructions* Bridgette Aguilera, CARGO AGENT.SAP SECURITY CONSULTANT - 04/08/2023 11:19 AM EDT PATIENT PREOPERATIVE INSTRUCTIONS Matt Griffin MD has scheduled you for your procedure at this surgery center: [facility]: [phone] -- [address] [address]. Please read below carefully for your personalized [...] Procedures: - YOU MUST HAVE A RESPONSIBLE BATTERY STACKER TAKE YOU HOME. A HAMMER SHOP SUPERVISOR OR WASHATERIA ATTENDANT CANNOT BE MADE A RESPONSIBLE BATTERY STACKER. - We recommend that a responsible person [...] Advance Directive, please fax a copy to [phone] or email to for it to be [...] into your chart that day. Bridgette Aguilera APRN.CNP [facility] History and physical note * Bridgette [...] Or Gangrene Atherosclerosis of Coronary Artery of [place] [facility] Without Angina Pectoris History of Pulmonary [...] Admin: COVID-19 vaccine, age 12+ yr, bivalent ([email or web address]) 11/21/2021 Imm Admin: COVID-19 original vaccine, full [...] fevers. Neurological: No history of TIA's, stroke, TOP TAPER MACHINE tumor, impaired sensorium, hemiplegia, paraplegia orquadraplegia. No [...] chest pain, CHF, congenital heart defect, recent MD, PVD, open heart surgery and valve surgery. [...] surgery. Oncology: BCC/SCC/Melanoma s/p excision, following [facility]: No history of psychiatric symptoms or [...] mag ox. Paroxysmal supraventricular tachycardia (HCC) 03/17/2011 [facility], Dr Arana PMH - PAST MEDICAL HISTORY OF glaucoma PMH - PAST MEDICAL HISTORY OF blood clots in lungs & legs Postherpetic neuralgia--left lower rib cage 08/24/2018 Primary osteoarthritis of left knee 05/03/2018 Added automatically from request for surgery [id number] Sebaceous cyst Unspecified essential hypertension PAST SURGICAL [...] Father Heart Attack Father unknown what age MD Hyperlipidemia Father Hypertension Mother at age 95 [...] Yes Medication Comments documented by Reny Smiley [facility] on 09/10/2019 at 1247. 09/10/19 The medications are managed by this patient by: PATIENT Reny Smiley, PharmD ALLERGIES Allergen Reactions Levaquin [Levofloxa* Other: See Comments Reports nightmares Lipitor [Atorvastat* Myalgia stopped by Dr. Cates Lovastatin Other: See Comments muscle aches Pravastatin Other: See Comments muscle aches Simvastatin Other: See Comments muscle aches Jwhhvkv-Rvd-Cgb Red* Myalgia tried them all Ceftin [Cefuroxime] [...] 412 QTC Calculation (Bazett) 460 Calculated R [place] 65 Calculated T [place] 15 Impression ATRIAL FIBRILLATION ABNORMAL ECG No results found for this or any previous visit (from the past 50208 hour(s)). Assessment Patient has the following medical [...] verbalized understanding. Atherosclerosis of coronary artery of [place] heart without angina pectoris Assessment: non-obstructing [facility] 201912/14/22 Dr. Walton, [facility] Scanned into Epic Aortic root dilatation (HCC) Assessment: mild-moderate, under surveillance by cardiology Rojo Activity Status Index: METS: Climb a flight of stairs or walk up a hill (5.50 METs) DASI Score: 5.5 Patient denies any chest pain or undue shortness of breath with the above physical activity. Clinical Frailty Scale: 3. Well, with treated comorbid disease STOP-Bang Score: Mark loudly Has or is being treated for high blood pressure BMI greater than 35 kg/m^2 Patient over 50 years old Has a large neck Male patient Denies feeling tired, fatigued, or sleepy during the daytime Has not been observed to stop breathing or choking/gasping during sleep STOP-Bang Score: 6 [id number] Score: Age: >=75 Sex: male CHF history: No Hypertension history: Yes Stroke/TIA/thromboembolism history: No Vascular disease history: No Diabetes history: No [id number] Score: 3 ARISCAT Score: Age: 51-80 Preoperative [...] 11:16 AM PAGER/CONTACT #: documented in this encounterHolzer [facility]09-[facility]23 NoteHNO ID: [id number] Author: Matt Griffin MD Service: ? Author Type: Physician Type: Progress Notes Filed: 03/30/2023 10:39 AM Note Text: HISTORY AND PHYSICAL Nitin Ceja Gabriela 1945 REFERRING PHYSICIAN: Fartun Downs MD CHIEF [...] mag ox. Paroxysmal supraventricular tachycardia (HCC) 03/17/2011 [facility], Dr Arana PMH - PAST MEDICAL HISTORY OF glaucoma PMH - PAST MEDICAL HISTORY OF blood clots in lungs AND legs Postherpetic neuralgia--left lower rib cage 08/24/2018 Primary osteoarthritis of left knee 05/03/2018 Added automatically from request for surgery [id number] Sebaceous cyst Unspecified essential hypertension PAST SURGICAL [...] Levaquin [Levofloxacin], Lipitor [Atorvastatin], Lovastatin, Pravastatin, Simvastatin, Whyoxsm-Ium-Yfm Reductase Inhibitors, and Ceftin [Cefuroxime] PERSONAL HISTORY: [...] Father Heart Attack Father unknown what age MD Hyperlipidemia Father Hypertension Mother at age 95 from age Hyperlipidemia Mother other (AFib) Mother Heart Paternal Uncle REVIEW OF SYMPTOMS: The review of systems data was entered by the nurse and reviewed by ar Nursing Notes: Aury Ibrahim RN 03/29/2023 9:49 [...] pain, denies heart disease, (more content not included)...[facility]07-21-2023 Miscellaneous Notes* Telephone Encounter - Fartun [...] Thank you. JOSSUE Johnson documented in this encounterHolzer [facility]06-28-[facility]23 Miscellaneous Notes* Telephone Encounter - Marium [...] confirm this is correct. documented in this encounterHolzer Hospital05-31-2023 Miscellaneous Notes* Telephone Encounter - Marium Carbajal LPN - 12/22/2022 2:57 PM EDT Seen pcp 12/22/22. * Telephone Encounter - Marium Carbajal LPN - 12/16/2022 2:09 PM EDT Rec'd labs from [facility] from Dr. Walton for pcp to review. They have been printed and in the POD for review. documented in this encounterHolzer Hospital05-31-2023 NoteHNO ID: [id number] Author: Fartun Downs MD Service: ? Author Type: Physician Type: Progress Notes Filed: 01/16/2023 10:46 PM Note Text: This note was created using Luvocracyriter. Subjective Nitin Ochoa is a 77 year old male. Patient presents with: Established Patient: Discuss recent labs including TSH SUBJECTIVE: Nitin Ochoa is a 77 year old year old gentleman here today for follow up appointment for review of medical conditions. TSH 0.01 on 12/14 a [facility]. Last year was 3.650 with T4 [...] mag ox. Paroxysmal supraventricular tachycardia (HCC) 03/17/2011 [facility], Dr Arana PMH - PAST MEDICAL HISTORY OF glaucoma PMH - PAST MEDICAL HISTORY OF blood clots in lungs AND legs Postherpetic neuralgia--left lower rib cage 08/24/2018 Primary osteoarthritis of left knee 05/03/2018 Added automatically from request for surgery [id number] Sebaceous cyst Unspecified essential hypertension Current Outpatient [...] dose decreased. Continue to (more content not included)...[facility] 10-21-2022 NotePatient Outreach (NETNAV) NITIN OCHOA ([id number]) 1945 M Date Time Provider Department 10/21/22 KAREN SERVIN (PSS) NETNAV During your visit today, we recorded the following information about you: Karen Servin Pss 10/21/2022 3:04 PM Signed POPULATION HEALTH NAVIGATION OUTREACH Action/FYI: HCC's 10/21/22 Patient is on HCC list and needs appointment to address below gaps: Diagnosis with HCC gap left: E66.01 - Morbid (severe) obesity due to excess calories AETNA Care Gaps to Address: PCP follow up Medicare Wellness (PCP is booking out in 2023) Flu vaccine Outcomes: Left message on voice mail and sent 3rdKind message. Patient Identified by Name and : NO Outreach Outcome/Action Unable to reach patient: Left message SolvAxishart message sent Did you use a PCP flex slot to schedule this appointment? N/A Reason for Outreach HCC or suspected condition Payer: Payor: [employer]OS[employer] MEDICARE / Plan: AET MEDICARE PPO / Product Type: PPO / [...] - Other: See Comments Comments: muscle aches UXBRVLJ-HRX-TKV REDUCTASE INHIBIT*11/05/2015 17 - Myalgia Comments: tried them all CEFTIN (CEFUROXIME) 02/22/2011 6 - Diarrhea Date Reviewed: 12/08/2021 Reviewed by: Lisbeth Alvarado Ma - Fully Assessed Reason for Visit: Population Health Navigation Outreach [3910] Cmt: HCC's Prescriptions as of 10/21/2022 - benzonatate (TESSALON [...] this patient by: PATIENT Reny Smiley, PharmD Problem List As Of Date 10/21/2022 Noted Resolved 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*12/12/2007 12/03/2020 BPH W URINARY OBS/LUTS [N40.1, N13.8] 04/23/2008 Paroxysmal atrial fibrillation (HCC) [I48.0] 08/30/2008 04/07/2021 Obesity, Class III, BMI 40-49.9 (morbid obesity*10/17/2008 01/03/2020 Mixed hyperlipidemia [E78.2] 10/17/2008 Unspecified gastritis and gastroduodenitis with*10/17/2008 12/03/2020 Routine general medical examination at a [facility]*10/23/2008 11/11/2014 OSTEOARTHROS NOS-OTHER SITE [M19.90] 11/04/2008 Essential hypertension [I10] 11/27/2008 Bladder Neck Obstruction [N32.0] 05/12/2009 H/O: hematuria [Z87.448] 05/12/2009 12/03/2020 Hypothyroidism [E03.9] 04/07/2010 Umbilical hernia without mention of obstruction*05/01/2010 Paroxysmal supraventricular tachycardia (HCC) [*03/17/2011 04/07/2021 Atherosclerosis of coronary artery of [place] he*03/17/2011 History of pulmonary embolism [Z86.711] 03/17/2011 Heel spur [M77.30] 10/28/2011 12/03/2020 Hypercholesterolemia [E78.00] 04/25/2012 Imaging abnormality [R93.89] 10/20/2012 12/03/2020 Anticoagulated on Coumadin [Z79.01] 11/28/2016 08/31/2019 Primary osteoarthritis of left knee [M17.12] 05/03/2018 08/24/2018 Class 2 obesity with body mass index (BMI) of 3*06/03/2018 Primary localized osteoarthritis of right knee * (more content not included)...[facility]03-30-2023 NoteHNO ID: [id number] Author: Karen Martin Service: ? Author Type: [...] Left message on voice mail and sent Rollstreamt message. Patient Identified by Name and : NO Outreach Outcome/Action Unable to reach patient: Left message SolvAxishart message sent Did you use a PCP [...] Population Health Navigator October 21, 2022 9:06 [facility]03-30-2023 History of Present illness Narrative* Karen [...] Left message on voice mail and sent 3rdKind message. Patient Identified by Name and : NO Outreach Outcome/Action Unable to reach patient: Left message SolvAxishart message sent Did you use a PCP [...] 21, 2022 9:06 AM documented in this encounterHolzer Hospital08-10-2022 Instructions* Patient Instructions* Fartun Downs MD - 03/03/2022 4:56 PM EDT FACT SHEET FOR PATIENTS, PARENTS, AND CAREGIVERS EMERGENCY USE AUTHORIZATION (EUA) OF PAXLOVID FOR CORONAVIRUS DISEASE 2019 (COVID-19) You are being given this Fact Sheet because your healthcare provider believes it is necessary to provide you with PAXLOVID for the treatment of ygbf-wy-lbtxfcog coronavirus disease (COVID-19) caused by the SARS-CoV-2 [...] virus. COVID-19 illnesses have ranged from very rcze-lc-wguhtf, including illness resulting in . While information [...] is an investigational medicine used to treat kngl-cx-ttmccsgl COVID-19 in adults and children [12 years [...] of using PAXLOVID to treat people with oyve-bn-jzlfgzbn COVID-19. The FDA has authorized the emergency use of PAXLOVID for the treatment of klnb-pz-wgzqaezo COVID-19in adults and children [12 years of [...] the medicines you take, including prescription and dwlv-lkt-lupfmmy medicines, vitamins, and herbal supplements. Some medicines [...] oral midazolam Apalutamide Carbamazepine, phenobarbital, phenytoin Rifampin Shaylee s Wort (hypericum perforatum) Taking PAXLOVID with [...] (remdesivir) is FDA-approved for the treatment of qrwi-vl-fqmtzhzm COVID-19 in certain adults and children. Talk with your doctor to see if Veklury is appropriate for you. Like PAXLOVID, FDA may also allow for the emergency use of other medicines to treat people with COVID-19. Go to https://www.fda.gov/fuqhzzsve-eufctblgneic-eiwiphipkjh/hof-cfffl-ciyavvbqgf-and- policy-framework/dxrqblxki-idj-cxqhfsrtdsulx for information on the emergency use of [...] if I am or ? There is television announcer treating women or mothers with PAXLOVID. For [...] Report side effects to FDA MedWatch at www.fda.gov/medNOTIKtch or call 3-157-XUA3337 or you can reportside effects to [employer]. at the contact information provided below. Website Fax number Telephone number www.Uniteam Communication How should I store PAXLOVID? Store PAXLOVID [...] (EUA). The EUA is supported by a [place] Master of Health and Human Service (HHS) declaration that circumstances exist to justify the emergency use of drugs and biological productsduring the COVID-19 pandemic. PAXLOVID for the treatment of ihpy-lu-mxmozanf COVID-19 in adults and children [12 years [...] telephone number provided below. Website Telephone number www.TRUCP27uxyoWhStockdrift (8-253-Q30-SQPI) You can also go to www.[employer] or call for more information. Forever Distributed by [employer] Division [place] [address] [id number] Revised: 09 October 2021 Fact Sheet [...] healthcare provider to share your information with [employer]then your healthcare provider will report your use of molnupiravir during to [employer]. by calling or Pregnancyreporting.Neptune.io. For individuals who are sexually active with [...] molnupiravir for the treatment of adults with antp-dn-hcfwgmer coronavirus disease 2019 (COVID-19) with positive results [...] virus. COVID-19 illnesses have ranged from very gqqh-yj-ytnjfj, including illness resulting in . While information [...] is an investigational medicine used to treat bzxj-lp-vopyhlhh COVID-19 in adults: with positive results of [...] serious illnesses Are taking any medicines (prescription, veva-tkc-rnmrywz, vitamins, or herbal products). How do I [...] to treat people with COVID-19. Go to https://www.fda.gov/ljriqvlgk-usmncgkulwkj-jgl-response/vol-cmwdplljaxlrjer-jfo- policy-framework/rjiesskkc-cje-pdeiyfknkmnng for more information. It is your choice [...] to FDA MedWatch at www.fda.gov/medwatch or call 4-014-MMJ-8386 ( ). How should I store molnupiravir? Store molnupiravir capsules at room temperature between 68 F to 77 F (20 C to 25 C). Keep molnupiravir and all medicines out of the reach of children and pets. How can I learn more about COVID-19? Ask your healthcare provider. Visit www.cdc.gov/COVID19 Contact your local or state public health department. Call [employer] at (toll free in the [place] Visit www.MightyHivenupiravirStockdrift What Is an Emergency Use Authorization (EUA)? The [place] FDA has made molnupiravir available under an emergency access mechanism called an Emergency Use Authorization (EUA) The EUA is supported by a [place] Master of Health and Human Service (HHS) declaration that circumstances exist to justify emergency use of drugs and biological products during the COVID-19 pandemic. Molnupiravir for the treatment of lbvl-nz-osudxuvw COVID-19 in adults with positive results of [...] used under the EUA). For patent information: www.Vontoo.[employer]/research/patent Copyright 2020 [employer] [place], [place] and its affiliates. All rights reserved. [id number] Issued: 07/16/2021 Resources for Managing Anxiety During COVID Crisis https://www.virusEle.me.[employer] https://www.cdc.gov/coronavirus/2019-ncov/prepare/ktniqssf-uefjug-fbossfe.html https://coronavirus.[place].gov/wps/portal/gov/covid-19/home/resources/resources-fo d-mdvhxu-hupgxr-bzji-tsq-ienbn-19-pandemic www.[employer]/us/blog/jda-pcwyh-zqeocekdjezo//ade-cupfab-mojripo irus-anxiety https://www.[employer]/us/blog/fri-snpqc-ewxyuzs//71-eefd-bvjnxch sq-ujea-blhqmltvrh-now https://www.[employer]/us/blog/experimentations//6-luzfhzdgabt-lh dbyfzizid-xeoszmtlsw-jqnnwbdiq How to Protect Yourself & Others from COVID-19 Wash your hands often Wash your hands often with soap and water for at least 20 seconds especially after you have been angle public place, or after blowing your nose, coughing, or sneezing. If soap and water are not readily available, use a hand supervisor of communications that contains at least 60% alcohol. Cover [...] that you do not come to any [facility] facility without calling your primary care physician or speaking to a provider using a virtual visit using [facility] [employer]. You will be evaluated to determine if you require being seen in person or if you meet CDC guidelines for testing for COVID-19 based on symptoms, travel and exposures. If you meet criteria for testing, your [employer] provider or primary care physician will [...] at least 30 days of prescription medications, dgwe-hpc-euldpcy medicines, and supplies on hand in case [...] youwant to harm yourself or others: Call 911 if you feel like you want to harm yourself or others Visit the Disaster Distress Helpline call , [place] [phone] Visit the National Domestic Violence Hotline or call and TTY Visit the National Suicide Prevention Lifeline or call and TTY or text Most importantly, don't panic. By following basic prevention measures such as hand hygiene and cover your cough, you are helping to keep yourself and others healthy. Additional information can be found on the CDC and [facility] web sites: https://www.cdc.gov/coronavirus/2019-nCoV/index.html https://[facility].org/coronavirus Beginning Home Isolation Isolation is used to [...] to your local emergency facility: Notify the deflash and wash operator that you are seeking care for [...] or concerning to you. documented in this encounterHol[facility]08-[facility]22 History of Present illness Narrative* Fartun Downs MD - 03/03/2022 4:45 PM EDT Telemedicine Evaluation for COVID-19 Infection MyChart video visit was used for evaluation of this patient. Location of patient: [facility] Nitin Ochoa is a 76 year old male [...] discussed Nirmatrelvir/Ritonavir (Paxlovid) Eligibility and Patient Discussion [facility] Formulary Restriction Criteria: Adult outpatients 18 [...] - MOLNUPIRAVIR 200 MG CAPSULE (EUA)--sent to [facility] Home Delivery since not available in [facility]. - CODEINE 10 MG-GUAIFENESIN 100 MG/5 ML [...] novel coronavirus infection (COVID-19). documented in this encounterHolzer Hospital08-10-2022 Miscellaneous Notes* Telephone Encounter - Aleida [...] scheduled. Aleida Harrell RN documented in this encounterHolzer Hospital08-10-2022 Evaluation note* Diagnosis COVID-19 virus infection- Primary Cough Stage 3a chronic kidney disease (HCC) Essential hypertension Unspecified essential hypertension PAF (paroxysmal atrial fibrillation) (HCC) Atrial fibrillation documented in this encounter [facility]05[facility]17[facility] History of Present illness Narrative* Fartun Downs MD - 12/08/2021 9:31 AM EDT This note was created using NoteWriter. Subjective Nitin Ochoa is a 76 year [...] mag ox. Paroxysmal supraventricular tachycardia (HCC) 03/17/2011 [facility], Dr Arana PMH - PAST MEDICAL HISTORY OF glaucoma PMH - PAST MEDICAL HISTORY OF blood clots in lungs & legs Postherpetic neuralgia--left lower rib cage 08/24/2018 Primary osteoarthritis of left knee 05/03/2018 Added automatically from request for surgery [id number] Sebaceous cyst Unspecified essential hypertension Current Outpatient [...] SCRN 6. Hypercholesterolemia E78.00 Labs done ta [facility] for Dr. Walton 7. Skin lesion L98.9 Hand--can see [place] law enforcement officer 8. Medication management Z79.899 MAGNESIUM BLD ASSESSMENT/PLAN: [...] - ICD9: 709.9, ICD10: L98.9 Follow with law enforcement officer for skin lesion on hand Fartun Downs MD documented in this encounterHolzer Hospital02-12-2020 History of Past illness Narrative* Problem [...] op - pt has own machine from [place] C F2F placed. DC home with [facility] 09/08/19. Discharge Planning: Anticipated Discharge Date: 09/08 [...] This is a 74 y/o male from [place], [place] here for [facility]HS. DC home with [facility] 09/08/19. Pre-op testing 08/27/2019 01/03/2020 [facility] Surgeon: Cleveland Reyes M.D. Informed Consent Completed: yes STS Score: unsupported CAD: No Is intended procedure a CABG: No - is a beta adam ordered? No - reason: H & P completed: Yes PA/LAT: Completed CT: Completed no f/u for adrenal gland per Chrisat check list MRI: N/A LE US: N/A [...] SERVICE: 9:31 AM CHECKED BY: Meli Garay APRN.[employer] SECURITY CONSULTANT August 30, 2019 1:14 PM History of pulmonary embolism 09/04/2018 History of DVT (deep vein thrombosis) 09/04/2018 08/31/2019 Primary localized osteoarthritis of right knee 0 08/22/2018 09/12/2018 Overview: Added automatically from request for surgery [id number] Primary osteoarthritis of left knee 05/03/2018 08/24/2018 Overview: Added automatically from request for surgery [id number] Anticoagulated on Coumadin 11/28/201608/31 Imaging abnormality 10/20/2012 12/03/2020 Heel spur 10/28/2011 12/03/2020 Paroxysmal supraventricular tachycardia 03/17/2004/07/2021 Overview: [facility], Dr Arana H/O: [...] of this encounter (statuses as of 01/30/2022) [facility] History of Past illness Narrative* Problem [...] op - pt has own machine from [place] C F2F placed. DC home with [facility] 09/08/19. Discharge Planning: Anticipated Discharge Date: 09/08 [...] This is a 74 y/o male from [place], [place] here for OHS. DC home with [facility] 09/08/19. Pre-op testing 08/27/2019 01/03/2020 Overview: HEART [...] SERVICE: 9:31 AM CHECKED BY: Meli Garay APRN.[employer] SECURITY CONSULTANT August 30, 2019 1:14 PM History of pulmonary embolism 09/04/2018 History of DVT (deep vein thrombosis) 09/04/2018 08/31/2019 Primary localized osteoarthritis of right knee 0 08/22/2018 09/12/2018 Overview: Added automatically from request for surgery [id number] Primary osteoarthritis of left knee 05/03/2018 08/24/2018 Overview: Added automatically from request for surgery [id number] Anticoagulated on Coumadin 11/28/201608/31 Imaging abnormality 10/20/2012 12/03/2020 Heel spur 10/28/2011 12/03/2020 Paroxysmal supraventricular tachycardia 03/17/20 11 04/07/2021 Overview: [facility], Dr Arana H/O: hematuria [...] 04/07/2021 Overview: History Pre-op on coumadin/BB Assessment 2./7 Asc [...] of this encounter (statuses as of 03/03/2022) [facility] of Past illness Narrative* Problem [...] op - pt has own machine from [place] C F2F placed. DC home with [facility] 09/08/19. Discharge Planning: Anticipated Discharge Date: 09/08 [...] This is a 74 y/o male from [place], [place] here for OHS. DC home with [facility] 09/08/19. Pre-op testing 08/27/2019 01/03/2020 [facility] PRE[facility] Surgeon: Cleveland Reyes M.D. Informed Consent Completed: yes STS Score: unsupported CAD: No Is intended procedure a CABG: No - is a beta daam ordered? No - reason: H & P [...] SERVICE: 9:31 AM CHECKED BY: Meli Garay APRN.SAP SECURITY CONSULTANT August 30, 2019 1:14 PM History of pulmonary embolism 09/04/2018 History of DVT (deep vein thrombosis) 09/04/2018 08/31/2019 Primary localized osteoarthritis of right knee 0 08/22/2018 09/12/2018 Overview: Added automatically from request for surgery [id number] Primary osteoarthritis of left knee 05/03/2018 08/24/2018 Overview: Added automatically from request for surgery [id number] Anticoagulated on Coumadin 11/28/201608/31 Imaging abnormality 10/20/2012 [...] of this encounter (statuses as of 03/03/2022) [facility] Past illness Narrative* Problem [...] op - pt has own machine from [place] [facility] F[facility]F placed. DC home with [facility] 09/08/19. Discharge Planning: Anticipated Discharge Date: 09/08 [...] This is a 74 y/o male from [place], [place] here for OHS. DC home with [facility] 09/08/19. Pre-op testing 08/27/2019 01/03/2020 Overview: HEART [...] SERVICE: 9:31 AM CHECKED BY: Meli Garay APRN.SAP SECURITY CONSULTANT August 30, 2019 1:14 PM History of pulmonary embolism 09/04/2018 History of DVT (deep vein thrombosis) 09/04/2018 08/31/2019 Primary localized osteoarthritis of right knee 0 08/22/2018 09/12/2018 Overview: Added automatically from request for surgery [id number] Primary osteoarthritis of left knee 05/03/2018 08/24/2018 Overview: Added automatically from request for surgery [id number] Anticoagulated on Coumadin 11/28/201608/31 Imaging abnormality 10/20/2012 [...] of this encounter (statuses as of 10/21/2022) [facility] illness Narrative* Problem [...] op - pt has own machine from [place] [facility] F2F placed. DC home with [facility] 09/08/19. Discharge Planning: Anticipated Discharge Date: 09/08 [...] This is a 74 y/o male from [place], [place] here for OHS. DC home with [facility] 09/08/19. Pre-op testing 08/27/2019 01/03/2020 Overview: HEART [...] SERVICE: 9:31 AM CHECKED BY: Meli Garay APRN.SAP SECURITY CONSULTANT August 30, 2019 1:14 PM History of pulmonary embolism 09/04/2018 History of DVT (deep vein thrombosis) 09/04/2018 08/31/2019 Primary localized osteoarthritis of right knee 0 08/22/2018 09/12/2018 Overview: Added automatically from request for surgery [id number] Primary osteoarthritis of left knee 05/03/2018 08/24/2018 Overview: Added automatically from request for surgery [id number] Anticoagulated on Coumadin 11/28/201608/31 Imaging abnormality 10/20/2012 [...] of this encounter (statuses as of 12/22/2022) [facility] illness Narrative* Problem [...] op - pt has own machine from [place] [facility] F2F placed. DC home with [facility] 09/08/19. Discharge Planning: Anticipated Discharge Date: 09/08 [...] This is a 74 y/o male from [place], [place] here for OHS. DC home with [facility] 09/08/19. Pre-op testing 08/27/2019 01/03/2020 Overview: HEART [...] SERVICE: 9:31 AM CHECKED BY: Meli Garay APRN.SAP SECURITY CONSULTANT August 30, 2019 1:14 PM History of pulmonary embolism 09/04/2018 History of DVT (deep vein thrombosis) 09/04/2018 08/31/2019 Primary localized osteoarthritis of right knee 0 08/22/2018 09/12/2018 Overview: Added automatically from request for surgery [id number] Primary osteoarthritis of left knee 05/03/2018 08/24/2018 Overview: Added automatically from request for surgery [id number] Anticoagulated on Coumadin 11/28/201608/31 Imaging abnormality 10/20/2012 [...] of this encounter (statuses as of 01/19/2023) [facility] Narrative* Problem [...] op - pt has own machine from [place] [facility] F2F placed. DC home with [facility] 09/08/19. Discharge Planning: Anticipated Discharge Date: 09/08 [...] This is a 74 y/o male from [place], [place] here for [facility]HS. DC home with [facility] 09/08/19. Pre-op testing 08/27/2019 01/03/2020 Overview: HEART [...] SERVICE: 9:31 AM CHECKED BY: Meli Garay APRN.SAP SECURITY CONSULTANT August 30, 2019 1:14 PM History of pulmonary embolism 09/04/2018 08/31/2019 History of DVT (deep vein thrombosis) 09/04/2018 08/31/2019 Primary localized osteoarthr itis of right knee 08/22/2018 09/12/2018 Overview: Added automatically from request for surgery [id number] Primary osteoarthritis of left knee 05/03/2018 08/24/2018 Overview: Added automatically from request for surgery [id number] Anticoagulated on Coumadin 11/28/2016 0 08/31/2019 Imaging abnormality 10/20/2012 12/04/19 21 Heel spur 10/28/2011 12/03/2020 Paroxysmal supraventricular tachycardia 03/17/2011 04/07/2021 Overview: [facility], Dr Arana H/O: hematuria 05/12/2009 [...] of this encounter (statuses as of 03/15/2023) [facility] Narrative* Problem [...] op - pt has own machine from [place] [facility] F2F placed. DC home with [facility] 09/08/19. Discharge Planning: Anticipated Discharge Date: 09/08 [...] This is a 74 y/o male from [place], [place] here for OHS. DC home with [facility] 09/08/19. Pre-op testing 08/27/2019 01/03/2020 Overview: HEART [...] SERVICE: 9:31 AM CHECKED BY: Meli Garay APRN.SAP SECURITY CONSULTANT August 30, 2019 1:14 PM History of pulmonary embolism 09/04/2018 08/31/2019 History of DVT (deep vein thrombosis) 09/04/2018 08/31/2019 Primary localized osteoarthr itis of right knee 08/22/2018 09/12/2018 Overview: Added automatically from request for surgery [id number] Primary osteoarthritis of left knee 05/03/2018 08/24/2018 Overview: Added automatically from request for surgery [id number] Anticoagulated on Coumadin 11/28/2016 0 08/31/2019 Imaging [...] of this encounter (statuses as of 03/16/2023) [facility] Narrative* Problem [...] op - pt has own machine from [place] C F2F placed. DC home with [facility] 09/08/19. Discharge Planning: Anticipated Discharge Date: 09/08 [...] This is a 74 y/o male from [place], [place] here for OHS. DC home with [facility] 09/08/19. Pre-op testing 08/27/2019 01/03/2020 Overview: HEART [...] SERVICE: 9:31 AM CHECKED BY: Meli Garay APRN.SAP SECURITY CONSULTANT August 30, 2019 1:14 PM History of pulmonary embolism 09/04/2018 08/31/2019 History of DVT (deep vein thrombosis) 09/04/2018 08/31/2019 Primary localized osteoarthr itis of right knee 08/22/2018 09/12/2018 Overview: Added automatically from request for surgery [id number] Primary osteoarthritis of left knee 05/03/2018 08/24/2018 Overview: Added automatically from request for surgery [id number] Anticoagulated on Coumadin 11/28/2016 0 08/31/2019 Imaging [...] parts of nervous system 12/12/200711/22 Overview: Garry 409: L temp lesion noted in 03-31 and followed routinely without change (9 mm lesion)-rec MRI in 8 mo documented as of this encounter (statuses as of 04/11/2023) [facility] Diagnosis Acquired hypothyroidism- Primary Unspecified hypothyroidism Essential hypertension Unspecified essential hypertension Stage 3a chronic kidney disease (HCC) Elevated hemoglobin A1c Other abnormal blood chemistry Prostate cancer screening Special screening for malignant neoplasm of prostate Hypercholesterolemia Pure hypercholesterolemia Skin lesion Unspecified disorder of skin and subcutaneous tissue Medication management Encounter for long-term (current) use of other medications [facility] Diagnosis Pre-operative examination- Primary Preoperative examination, unspecified Acquired hypothyroidism Unspecified hypothyroidism Status post ascending aortic aneurysm repair Other postprocedural status Stage 3a chronic kidney disease (HCC) Status post total right knee replacement Mixed hyperlipidemia History of pulmonary embolism Personal history of pulmonary embolism Atherosclerosis of coronary artery of [place] heart without angina pectoris, unspecified vessel or lesion type Aortic root dilatation (HCC) Thoracic aortic ectasia Class 2 obesity due to excess calories with body mass index (BMI) of 39.0 to 39.9 in adult, unspecified whether serious comorbidity present Unspecified disorder of skin and subcutaneous tissue [facility]* Diagnosis Lesion of temporal lobe- Primary Other conditions of brain Nightmare Other dysfunctions of sleep stages or arousal from sleep Sleep pattern disturbance Sleep disturbance, unspecified [facility]* Diagnosis Aftercare- Primary Unspecified aftercare documented in this [facility]* Diagnosis Lesion of temporal lobe- Primary Other conditions of brain Nightmare Other dysfunctions of sleep stages or arousal from sleep Sleep pattern disturbance Sleep disturbance, unspecified Acquired hypothyroidism Unspecified hypothyroidism [facility] Outpatient Procedure (Routine) - Closed Specialty Diagnoses / Procedures Referred By Contac t Referred To Contact [facility] Diagnoses Pre-operative examination Procedures ECG COMPLETE ECG ROUTINE ECG W/LEAST 12 LDS W/I&R Bridgette Aguilera APRN.CNP [address] [place] [address] [facility] [address] [place] [address] Referral ID Status Reason Start Date Expiration Date V isits Requested Visits Authorized [id number] Closed Auto-Generate d Referral 04/08/2023 04/07/2024 1 1 [facility] Advance Directives No Advanced Directives Records FoundDocuments on File Type Date Recorded Patient Neighborhood Aide Expl anation Advance Directive(s) 06/02/2018 9:59 AM Latest Code Status on File Code Status Date Activated Date Inactivated Comments Full Code 09/11/2018 2:14 PM 09/12/2018 6:53 PM Full Code Order Discussed With: Patient Full Code 06/02/2018 3:58 PM 06/03/2018 8:32 PM Documents on File Type Date Recorded Patient Neighborhood Aide Expl anation Advance Directive(s) 08/28/2019 3:19 PM Advance Directive(s) 08/21/2019 10:21 AM Advance Directive(s) 10/12/2018 10:46 AM Advance Directive(s) 06/02/2018 10:06 AM S cristóbal 06-02-2018 Advance Directive(s) 06/02/2018 9:59 AM Advance [...] Documents on File Type Date Recorded Patient Neighborhood Aide Expl anation Advance Directive(s) 06/02/2018 9:59 AM [...] Referred By Rolanda an Referred To Contact Neurology Diagnoses Lesion of temporal lobe Nightmare Sleep pattern disturbance Procedures CONSULT TO NEUROLOGY OFFICE/OUTPATIENT [facility] 60-74 MINUTES Gladis Soliz APRN.TOP TAPER MACHINE [address] [place] [address] Referral ID Status Reason Start Date Expiration Date Visits Requested Visits Authorized [id number] Pending Review PCP Requested Referral 04/19/2023 04/18/2024 1 1 Specialty Diagnoses / Procedures Referred By Rolanda an Referred To Contact MR IMAGING Diagnoses Lesion of temporal lobe Nightmare Sleep pattern disturbance Procedures MRI BRAIN WO/W IVCON MRI BRAIN BRAIN STEM W/O W/CONTRAST MATERIAL Gladis Soliz, TAMIKO.TOP TAPER MACHINE [address] [place] [address] [place] [id number] Referral ID Status Reason Start Date Expiration Date Visits Requested Visits Authorized [id number] Authorized Auto-Generat ed Referral 04/19/2023 05/18/2024 1 1 Additional Source Comments Source Comments (unrecognize d section and content) In the event this informatio n is protected by the Federal Confidentiality of Alcohol and Drug Abuse Patient Records regulations: The Federal rules restrict any use of the information to criminally investigate or prosecute any alcohol or drug abuse patient.[facility] Hospital[facility] the event this information is protected by the Federal Confidentiality of Alcohol and Drug Abuse Patient Records regulations: The Federal rules restrict any use of the information to criminally investigate or prosecute any alcohol or drug abuse patient.[facility] HospitalIn the event this information is protected by the Federal Confidentiality of Alcohol and Drug Abuse Patient Records regulations: The Federal rules restrict any use of the information to criminally investigate or prosecute any alcohol or drug abuse patient.[facility] HospitalIn the event this information is protected by the Federal Confidentiality of Alcohol and Drug Abuse Patient Records regulations: The Federal rules restrict any use of the information to criminally investigate or prosecute any alcohol or drug abuse patient.[facility] HospitalIn the event this information is protected by the Federal Confidentiality of Alcohol and Drug Abuse Patient Records regulations: The Federal rules restrict any use of the information to criminally investigate or prosecute any alcohol or drug abuse patient.[facility] HospitalIn the event this information is protected by the Federal Confidentiality of Alcohol and Drug Abuse Patient Records regulations: The Federal rules restrict any use of the information to criminally investigate or prosecute any alcohol or drug abuse patient.[facility] HospitalIn the event this information is protected by the Federal Confidentiality of Alcohol and Drug Abuse Patient Records regulations: The Federal rules restrict any use of the information to criminally investigate or prosecute any alcohol or drug abuse patient.[facility] HospitalIn the event this information is protected by the Federal Confidentiality of Alcohol and Drug Abuse Patient Records regulations: The Federal rules restrict any use of the information to criminally investigate or prosecute any alcohol or drug abuse patient.[facility] HospitalIn the event this information is protected by the Federal Confidentiality of Alcohol and Drug Abuse Patient Records regulations: The Federal rules restrict any use of the information to criminally investigate or prosecute any alcohol or drug abuse patient.[facility] HospitalIn the event this information is protected by the Federal Confidentiality of Alcohol and Drug Abuse Patient Records regulations: The Federal rules restrict any use of the information to criminally investigate or prosecute any alcohol or drug abuse patient.[facility] HospitalIn the event this information is protected by the Federal Confidentiality of Alcohol and Drug Abuse Patient Records regulations: The Federal rules restrict any use of the information to criminally investigate or prosecute any alcohol or drug abuse patient.[facility] HospitalIn the event this information is protected by the Federal Confidentiality of Alcohol and Drug Abuse Patient Records regulations: The Federal rules restrict any use of the information to criminally investigate or prosecute any alcohol or drug abuse patient.[facility] HospitalIn the event this information is protected by the Federal Confidentiality of Alcohol and Drug Abuse Patient Records regulations: The Federal rules restrict any use of the information to criminally investigate or prosecute any alcohol or drug abuse patient.[facility] HospitalIn the event this information is protected by the Federal Confidentiality of Alcohol and Drug Abuse Patient Records regulations: The Federal rules restrict any use of the information to criminally investigate or prosecute any alcohol or drug abuse patient.[facility] HospitalIn the event this information is protected by the Federal Confidentiality of Alcohol and Drug Abuse Patient Records regulations: The Federal rules restrict any use of the information to criminally investigate or prosecute any alcohol or drug abuse patient.[facility] HospitalIn the event this information is protected by the Federal Confidentiality of Alcohol and Drug Abuse Patient Records regulations: The Federal rules restrict any use of the information to criminally investigate or prosecute any alcohol or drug abuse patient.[facility] ClinicIn the event this information is protected by the Federal Confidentiality of Alcohol and Drug Abuse Patient Records regulations: The Federal rules restrict any use of the information to criminally investigate or prosecute any alcohol or drug abuse patient.[facility] Reason for Visit (unrecogniz ed section [...] Care Teams (unrecognized sec tion and content) Head Of Global Strategic Partnerships Relationship Specialty Start Date End Date Fartun Downs MD [address] [place] [address] PCP - General 10/04/09 [employer] CM [facility] [place] [facility] 09/11/18 Head Of Global Strategic Partnerships Relationship Specialty Start Date End Date Fartun Downs MD [address] [place] [address] PCP - General 10/04/09 [employer] CM [facility] [place] [facility] 09/11/18 Head Of Global Strategic Partnerships Relationship Specialty Start Date End Date Fartun Downs MD [address] [place] [address] PCP - General 10/04/09 [employer] CM [facility] [place] [facility] 09/11/18 Head Of Global Strategic Partnerships Relationship Specialty Start Date End Date Fartun Downs MD [address] [place] [address] PCP - General 10/04/09 [employer] CM Arcelia [place] [facility] 09/11/18 Head Of Global Strategic Partnerships Relationship Specialty Start Date End Date Fartun Downs MD [address] [facility] [place] [address] PCP - General 10/04/09 [employer] CM Arcelia [place] [facility] 09/11/18 Head Of Global Strategic Partnerships Relationship Specialty Start Date End Date Fartun Downs MD [address] [place] [address] PCP - General 10/04/09 [employer] CM Arcelia [place] [facility] 09/11/18 Head Of [employer] Relationship Specialty Start Date End Date Fartun Downs MD [address] [place] [address] PCP - General 10/04/09 [employer] CM Arcelia [place] 09/11/18 Head Of [employer] Relationship Specialty Start Date End Date Fartun Downs MD [address] [place] [address] PCP - General 10/04/09 [employer] CM Arcelia [place] [facility] 09/11/18 Head Of [employer] Partnership[employer] Relationship Specialty Start Date End Date Fartun Downs MD [address] [facility] [place] [address] PCP - General 10/04/09 [employer] CM Arcelia [place] [facility] 09/11/18 Head Of Global Strategic Partnerships Relationship Specialty Start Date End Date Fartun Downs MD [address] [facility] [place] [address] PCP - General 10/04/09 [employer] CM Arcelia [place] [facility] 09/11/18 Head Of Global Strategic Partnerships Relationship Specialty Start Date End Date Fartun Downs MD [address] [facility] [place] [address] PCP - General 10/04/09 [employer] CM Arcelia [place] [facility] 09/11/18 Head Of Global Strategic Partnerships Relationship Specialty Start Date End Date Fartun Downs MD [address] [facility] [place] [address] PCP - General 10/04/09 [employer] CM Arcelia [place] [facility] 09/11/18 Head Of Global Strategic Partnerships Relationship Specialty Start Date End Date Fartun Downs MD [address] [facility] [place] [address] PCP - General 10/04/09 [employer] CM Arcelia [place] [facility] 09/11/18 Head Of Global Strategic Partnerships Relationship Specialty Start Date End Date Fartun Downs MD [address] [facility] [place] [address] PCP - General 10/04/09 [employer] CM Arcelia [place] [facility] 09/11/18 Head Of Global Strategic Partnerships Relationship Specialty Start Date End Date Fartun Downs MD [address] [facility] [place] [address] PCP - General 10/04/09 Enmanuel LEONORA Bob Community Resource 09/11/18 (unrecognized sect ion and content) No Status Records FoundNo Status Records Found INFORMATION SOURCE (unrecogn ized section and content) DATE CREATED AUTHOR AUTHOR'S ORGANIZ ATION 07/30/2023 [facility] FOR RECORDS PERTAINING TO PATIENTS WHO [...] BE BASED ON THE PRIMARY CLINICAL RECORDS. [facility]. provides no warranty or guarantee of the accuracy or completeness of information in this document.
[2023-09-15 11:06] LABS: Anion Gap 1 (5-15); BUN 27 mg/dL (7-18); BUN/Creat Ratio 17.9 RATIO (10-20); Calcium,Total 9.3 mg/dL (8.5-10.1); Chloride 110 mmol/L (98-107); Creatinine, Serum 1.51 mg/dL (0.70-1.30); EST Glomerular Filtration Rate 48 mL/min (>60); Est Glom Filt Rate - Afr Amer 58 mL/min (>60); Estimated Creatinine Clearance 65.11 ml/min; Glucose 95 mg/dL (74-106); Potassium 4.4 mmol/L (3.5-5.1); Sodium Level 140 mmol/L (136-145)
[2023-09-15] MEDS: HYDROcodone Bitartrate/Apap 5/325 Tablet PO (12:14)
[2023-09-15] MEDS: Enoxaparin 150 MG/ML Syringe SC (12:14)
[2023-09-15 12:20] VITALS: BP 142/99; PULSE 77; RESP 14; TEMP 36.6; O2SAT 99
== END 2023-09-15 12:21 | disposition home or self-care (01) ==
PROVIDERS: Emergency Provider Emergency Medicine; PCP Internal Medicine; Visit Provider Emergency Medicine
DX: I82.461 Acute embolism and thrombosis of right calf muscular vein (principal); I48.0 Paroxysmal atrial fibrillation; Z87.891 Personal history of nicotine dependence; Z79.01 Long term (current) use of anticoagulants; E78.5 Hyperlipidemia, unspecified; I10 Essential (primary) hypertension
CPT/HCPCS: 80048; 85025; 85610; 85730; 93971; 99283

== ENCOUNTER → 2023-12-29 | Outpatient (CLI) | payer MEDICARE, SELFPAY ==
--- NOTE | 2023-12-29 10:26 | RAD_ITS ---
STUDY: X-RAY CHEST REASON FOR EXAM: Male, 78 years old. Amiodarone TECHNIQUE: AP and lateral views of the chest. COMPARISON: 04/13/2022. FINDINGS: There is hyperinflation of the lungs consistent with chronic obstructive lung disease (COPD). No infiltrates. No effusions. There is no demonstrated pleural abnormality. Normal size heart. Previous CABG. Normal mediastinum and henry. Normal visualized pulmonary arteries. There is atherosclerotic tortuosity of the aortic arch and descending thoracic aorta. Normal visualized thoracic spine. Normal visualized ribs, clavicles, and shoulders. There is no demonstrated abnormality of the visualized soft tissue structures of the upper abdomen. RAD/Chest PA and Lateral IMPRESSION: There are findings consistent with COPD. There is no evidence of acute chest disease. Electronically Signed: Jaron Carballo MD at 17:29 EDT ,
[2023-12-29 11:16] LABS: Absolute Lymphocyte Count 0.83 X10^3/uL (0.83-4.51); Absolute Neutrophil Count 4.4 X10^3/uL (2.0-7.7); Basophil# 0.06 X10^3/uL; Basophil% 0.9 % (0-1); Eosinophil# 0.21 X10^3/uL; Eosinophils% 3.2 % (0-5); Hematocrit 44.2 % (40-54); Hemoglobin 14.1 g/dL (13.0-16.5); Lymphocyte # 0.83 X10^3/ul (0.83-4.51); Lymphocyte % 12.7 % (19-41); Mean Corp Hgb Conc 31.9 g/dL (32-36); Mean Corpuscular Hgb 30.5 pg (27.0-32.0); Mean Corpuscular Volume 95.5 fL (80-94); Monocyte# 0.95 X10^3/uL; Monocyte% 14.6 % (0-10); NRBC Flagged by Analyzer 0 % (0-5); Neutrophil # 4.44 X10^3/uL (2.7-7.7); Neutrophil % 68.3 % (47-70); Platelet Count 197 K/mm3 (150-450); RBC Distribution Width CV 14.6 % (11.6-14.6); RBC Distribution Width SD 50.3 fl (35.1-43.9); Red Blood Count 4.63 M/mm3 (4.6-6.2); White Blood Count 6.5 K/mm3 (4.4-11.0)
[2023-12-29 11:31] LABS: BNP,B-Type NATRIURETIC PEPTIDE 204.1 pg/mL (0-100)
[2023-12-29 12:02] LABS: Anion Gap 5 (5-15); BUN 16 mg/dL (7-18); BUN/Creat Ratio 10.7 RATIO (10-20); Calcium,Total 9.1 mg/dL (8.5-10.1); Chloride 108 mmol/L (98-107); EST Glomerular Filtration Rate 48 mL/min (>60); Est Glom Filt Rate - Afr Amer 58 mL/min (>60); Glucose 100 mg/dL (74-106); Potassium 4.3 mmol/L (3.5-5.1); Sodium Level 137 mmol/L (136-145); Thyroid Stim Hormone (TSH) 0.69 uIU/mL (0.358-3.74)
== END | disposition home or self-care (01) ==
LOC: RAD 10:26
PROVIDERS: PCP Internal Medicine; Referring Provider Nurse Practitioner Gerontology; Visit Provider Nurse Practitioner Gerontology
DX: R06.00 Dyspnea, unspecified (principal); I48.0 Paroxysmal atrial fibrillation; Z79.899 Other long term (current) drug therapy
CPT/HCPCS: 36415; 71046; 80048; 83880; 84443; 85025

== ENCOUNTER → 2024-01-06 | Outpatient (CLI) | payer MEDICARE, SELFPAY ==
[2024-01-06 16:25] LABS: Anion Gap 6 (5-15); BUN 21 mg/dL (7-18); BUN/Creat Ratio 13.8 RATIO (10-20); Calcium,Total 9.4 mg/dL (8.5-10.1); Chloride 104 mmol/L (98-107); Creatinine, Serum 1.52 mg/dL (0.70-1.30); EST Glomerular Filtration Rate 48 mL/min (>60); Est Glom Filt Rate - Afr Amer 58 mL/min (>60); Free T3 2.4 pg/mL (2.18-3.98); Free T4 1.54 ng/dL (0.76-1.46); Glucose 108 mg/dL (74-106); Potassium 4.2 mmol/L (3.5-5.1); Sodium Level 140 mmol/L (136-145); Thyroid Stim Hormone (TSH) 0.59 uIU/mL (0.358-3.74)
== END | disposition home or self-care (01) ==
LOC: MTLAB 11:32
PROVIDERS: PCP Internal Medicine; Referring Provider Nurse Practitioner Gerontology; Visit Provider Nurse Practitioner Gerontology
DX: E03.9 Hypothyroidism, unspecified (principal)
CPT/HCPCS: 36415; 80048; 84439; 84443; 84481

== ENCOUNTER → 2024-01-18 | Outpatient (CLI) | payer MEDICARE, SELFPAY | END | disposition home or self-care (01) | PROVIDERS: PCP Internal Medicine; Referring Provider Nurse Practitioner Gerontology; Visit Provider Nurse Practitioner Gerontology | DX: Z79.899 Other long term (current) drug therapy (principal) | CPT/HCPCS: 94010; 94060; 94726; 94729 ==

== ENCOUNTER 2024-09-14 06:14 | Emergency (ER) | payer MEDICARE, SELFPAY ==
[2024-09-14 06:16] VITALS: BP 153/104; PULSE 118; RESP 16; TEMP 36.8; O2SAT 96; BMI 35.3
--- NOTE | 2024-09-14 06:32 | ED.VIS.GI ---
HPI <Dr. Hussein Prieto DO - Last Filed: 09/14/24 08:04> HPI - GI History of Present Illness Chief Complaint: Constipation Abdominal Pain/Flank Pain Onset: Days (10) Context: Gradual Onset Timing: Continuous Quality: Aching and Cramping Location: Diffuse Worsened by: Nothing Relieved by: - (Sitting up) Nausea/Vomiting/Emesis GI Symptom: Positive for Nausea; Negative for Vomiting Diarrhea/Melena/Hematochezia GI Symptom: Negative for Diarrhea, Melena or Hematochezia Associated Symptoms Associated Symptoms: Negative for Dysuria or Hematuria Narrative Narrative: Patient presents with abdominal pain and constipation that has been getting worse over the past 10 days. Patient states he does not think he had a bowel movement in the last 10 days. Patient states he went to his primary care physician at the [facility] yesterday and had x-rays done. Patient states the x-rays were negative and he was given a bottle of magnesium citrate. Patient states he took this and his cramping became worse. Patient states his pain is better when he is able to sit up. Patient describes it as aching and cramping. Patient states it is diffuse across his entire abdomen. Patient admits to some nausea but denies any vomiting. Patient admits to decreased urine output since yesterday but denies any dysuria or hematuria. Patient states he had recent surgery on his tongue and was given opiate pain medication postoperatively. [facility] <Dr. Hussein Prieto DO - Last Filed: 09/14/24 08:04> [facility] Medical History Thoracic aortic aneurysm (TAA) Essential (primary) hypertension Bradycardia Vertigo Hyperlipidemia History of pulmonary embolism Paroxysmal atrial tachycardia prison current use of anticoagulant Paroxysmal atrial fibrillation Home Medications ?Medication ?Instructions ?Recorded ?Last Taken ?Type latanoprost 0.005 % eye drops 1 drp EACH EYE UD 08/19/15 Unknown History magnesium oxide 400 mg PO BID #180 caps 06/25/21 04/20/22 Rx multivitamin 1 tab PO DAILY 04/13/22 Unknown History warfarin 5 mg tablet 5 mg PO .COMPLEX #180 tabs 11/09/23 Unknown Rx brimonidine 0.2 % eye drops 1 drp ophthalmic (eye) BID 12/29/23 Unknown History ezetimibe 10 mg tablet 10 mg PO DAILY #90 tabs 03/20/24 Unknown Rx furosemide 40 mg tablet 40 mg PO DAILY #90 tabs 05/14/24 Unknown Rx amiodarone 200 mg tablet 100 mg (1/2 x 200 mg) PO DAILY #90 07/19/24 Unknown Rx tabs amlodipine 10 mg tablet 5 mg (1/2 x 10 mg) PO QHS #90 07/19/24 Unknown Rx TABLETS docusate sodium 100 mg capsule 100 mg PO QDAY 07/19/24 Unknown History fluticasone propionate 50 2 spray intranasal DAILY 07/19/24 Unknown History mcg/actuation nasal spray,suspension levothyroxine 100 mcg tablet 100 mcg PO QDAY 07/19/24 Unknown History polyethylene glycol 3350 17 17 g PO BID PRN constipation #238 09/14/24 Unknown Rx gram/dose oral powder (Miralax) grams Allergy/AdvReac Type Severity Reaction Status Date / Time latex Allergy Mild Hives Verified 09/14/24 06:15 pravastatin AdvReac Intermediate Myalgias Verified 09/14/24 06:15 simvastatin (From Zocor) AdvReac Intermediate Myalgias Verified 09/14/24 06:15 Vaezdyx-SIS-EoD Reductase AdvReac MUSCLE Verified 09/14/24 06:15 Inhibitor PAINS Family History Father CAD (coronary artery disease) Mother Arrhythmia Surgical History Hx of eye surgery H/O radiofrequency ablation for complex left atrial arrhythmia (04/04/00) History of cardioversion (04/20/22) 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 Hussein Prieto, DO - Last Filed: 09/14/24 08:04> ROS ED Constitutional Constitutional ED: Denies chills or fever(s) Eyes Eyes: Denies blurry vision or change in vision ENT ENT ED: Denies rhinorrhea or sore throat Cardiovascular Cardiovascular: Denies chest pain or palpitations Respiratory/Chest Respiratory/Chest: Reports cough; Denies dyspnea Gastrointestinal Gastrointestinal: Reports abdominal pain, constipation and nausea; Denies vomiting Genitourinary Genitourinary ED: Denies dysuria or hematuria Musculoskeletal Musculoskeletal: Denies back pain or neck pain Integumentary Denies abscess or rash Neurologic Neurologic: Denies headache(s) or weakness Allergic/Immunologic Allergic/Immunologic ED: Denies mouth swelling or urticaria EXAM <Dr. Hussein Prieto, DO - Last Filed: 09/14/24 08:04> Physical Exam Const Vital Signs: 09/14/24 06:16 09/14/24 08:10 09/14/24 10:00 Temperature 98.2 F Temperature Source Oral Pulse Rate 118 H 88 88 Respiratory Rate 16 16 18 Blood Pressure 153/104 H 148/92 H 150/94 H Blood Pressure Mean 120 110 112 Pulse Ox 96 98 99 Oxygen Delivery Method Room Air Positive well nourished and well developed General Appearance ED: well developed and NAD HEENT Reports moist mucous membranes Neck supple and no JVD Resp normal respiratory effort and clear to auscultation bilaterally Cardio regular rate Rhythm: abnormal rhythm irregularly irregular GI Palpation: soft and tender epigastric, LLQ, RLQ, LUQ, RUQ, periumbilical and suprapubic; Negative for guarding or rebound tenderness present Neuro CN's II-XII intact bilaterally, moves all extremities and no sensory deficits noted Sensorium / Orientation: alert Motor Exam: strength 5/5 throughout Psych mental status grossly normal <Dr. Matt De Jesus, DO - Last Filed: 09/14/24 10:07> Physical Exam Const Vital Signs: 09/14/24 06:16 09/14/24 08:10 09/14/24 10:00 Temperature 98.2 F Temperature Source Oral Pulse Rate 118 H 88 88 Respiratory Rate 16 16 18 Blood Pressure 153/104 H 148/92 H 150/94 H Blood Pressure Mean 120 110 112 Pulse Ox 96 98 99 Oxygen Delivery Method Room Air MDM <Dr. Hussein Prieto, DO - Last Filed: 09/14/24 08:04> [facility] Narrative Medical decision making narrative: Differential diagnosis includes bowel obstruction, constipation, electrolyte abnormality, urinary retention, urinary tract infection, and dehydration. CT scan of the abdomen and pelvis will be obtained to assess for bowel obstruction and constipation. CBC will be obtained to assess for leukocytosis and anemia. Basic metabolic profile will be obtained to assess for electrolyte abnormality and renal function. Urinalysis will be obtained to assess for urinary tract infection and hematuria. Lab Data Attestation: I reviewed the patient's lab results. Lab results narrative: CBC was reviewed and was within normal limits. Basic metabolic profile was reviewed. Creatinine was slightly elevated at 1.4 and potassium was slightly low at 3.3. The remainder is within normal limits. Urinalysis was reviewed. There is no evidence of urinary tract infection. Labs: Laboratory Results - last 24 hr 09/14/24 09/14/24 06:47 07:00 WBC 9.1 RBC 4.63 Hgb 13.4 Hct 41.2 MCV 89.0 MCH 28.9 MCHC 32.5 RDW Std Deviation 45.2 H RDW Coeff of Madelin 14.2 Plt Count 228 MPV 11.2 Immature Gran % (Auto) 0.400 Neut % (Auto) 76.0 H Lymph % (Auto) 7.4 L Towns % (Auto) 15.3 H Eos % (Auto) 0.6 Baso % (Auto) 0.3 Absolute Neuts (auto) 6.9 Absolute Lymphs (auto) 0.67 L Nucleated RBC % 0 Sodium 138 Potassium 3.3 L Chloride 102 Carbon Dioxide 31.0 Anion Gap 5 BUN 18 Creatinine 1.40 H Estim Creat Clear Calc 65.48 Est GFR (MDRD) Af Amer 63 Est GFR (MDRD) Non-Af 52 L BUN/Creatinine Ratio 12.9 Glucose 118 H Calcium 9.4 Urine Color Yellow Urine Clarity Clear Urine pH 6.0 Ur Specific Wyatt 1.015 Urine Protein 30 H Urine Glucose (UA) Normal Urine Ketones 15 H Urine Occult Blood 50 H Urine Nitrite Negative Urine Bilirubin Negative Urine Urobilinogen 1 H Ur Leukocyte Esterase Negative Urine RBC 0-5 SEEN Urine WBC 0-5 SEEN Ur Squamous Epith Cells 0 SEEN Urine Bacteria 0 SEEN Hyaline Casts 5-10 SEEN Fine Granular Casts 0-5 SEEN Urine Mucus 1+ Radiography Diagnostic Testing: Clinical Impression(s) from Imaging Studies Abdomen/Pelvis CT 09/14/24 06:38 IMPRESSION: No definite acute findings in the abdomen /pelvis. Moderate stool in the colon, greatest in the rectum. There is mild circumferential wall thickening of the distal rectum. Although the appearance could be due to peristalsis, distal rectal mass is not entirely excluded. No evidence of bowel obstruction or perforation. Recommend correlation with digital rectal examination and follow-up colonoscopy. There is a questionable 2.5 cm isodense nodule of the distal pancreatic tail, versus an island of normal pancreatic tissue. Suggest a follow-up dedicated pancreatic CT or MRI in 2-3 months. No acute appendicitis or obstructive uropathy. 1 cm exophytic cyst superior medial left kidney. No dedicated imaging follow-up recommended. 2.8 cm low-attenuation right adrenal nodule with mean Hounsfield unit value of 11, suggestive of a lipid rich adenoma. Attention to this finding on the follow-up pancreatic CT/MRI in 2-3 months. Colonic diverticulosis, without evidence of acute diverticulitis. Small fat containing inguinal hernias. One or more dose reduction techniques were used (e.g., Automated exposure control, adjustment of the mA and/or kV according to patient size, use of iterative reconstruction technique). Reading Location: [facility] CT scan of the abdomen and pelvis was obtained. There is moderate stool in the colon, greatest in the rectum. There is circumferential wall thickening of the distal rectum. There is no evidence of obstruction or perforation. There is no evidence of appendicitis or obstructive uropathy. There is no free air or free fluid. This was interpreted by the radiologist and was also independently reviewed by myself. Treatment and Re-Evaluation :: Patient was ordered a soapsuds enema. Patient was advised of his findings. Care of the patient will be turned over to the oncoming physician pending enema. <Dr. Matt De Jesus, DO - Last Filed: 09/14/24 10:07> [facility] Lab Data Labs: Laboratory Results - last 24 hr 09/14/24 09/14/24 06:47 07:00 WBC 9.1 RBC 4.63 Hgb 13.4 Hct 41.2 MCV 89.0 MCH 28.9 MCHC 32.5 RDW Std Deviation 45.2 H RDW Coeff of Madelin 14.2 Plt Count 228 MPV 11.2 Immature Gran % (Auto) 0.400 Neut % (Auto) 76.0 H Lymph % (Auto) 7.4 L Towns % (Auto) 15.3 H Eos % (Auto) 0.6 Baso % (Auto) 0.3 Absolute Neuts (auto) 6.9 Absolute Lymphs (auto) 0.67 L Nucleated RBC % 0 Sodium 138 Potassium 3.3 L Chloride 102 Carbon Dioxide 31.0 Anion Gap 5 BUN 18 Creatinine 1.40 H Estim Creat Clear Calc 65.48 Est GFR (MDRD) Af Amer 63 Est GFR (MDRD) Non-Af 52 L BUN/Creatinine Ratio 12.9 Glucose 118 H Calcium 9.4 Urine Color Yellow Urine Clarity Clear Urine pH 6.0 Ur Specific Wyatt 1.015 Urine Protein 30 H Urine Glucose (UA) Normal Urine Ketones 15 H Urine Occult Blood 50 H Urine Nitrite Negative Urine Bilirubin Negative Urine Urobilinogen 1 H Ur Leukocyte Esterase Negative Urine RBC 0-5 SEEN Urine WBC 0-5 SEEN Ur Squamous Epith Cells 0 SEEN Urine Bacteria 0 SEEN Hyaline Casts 5-10 SEEN Fine Granular Casts 0-5 SEEN Urine Mucus 1+ Radiography Diagnostic Testing: Clinical Impression(s) from Imaging Studies Abdomen/Pelvis CT 09/14/24 06:38 IMPRESSION: No definite acute findings in the abdomen /pelvis. Moderate stool in the colon, greatest in the rectum. There is mild circumferential wall thickening of the distal rectum. Although the appearance could be due to peristalsis, distal rectal mass is not entirely excluded. No evidence of bowel obstruction or perforation. Recommend correlation with digital rectal examination and follow-up colonoscopy. There is a questionable 2.5 cm isodense nodule of the distal pancreatic tail, versus an island of normal pancreatic tissue. Suggest a follow-up dedicated pancreatic CT or MRI in 2-3 months. No acute appendicitis or obstructive uropathy. 1 cm exophytic cyst superior medial left kidney. No dedicated imaging follow-up recommended. 2.8 cm low-attenuation right adrenal nodule with mean Hounsfield unit value of 11, suggestive of a lipid rich adenoma. Attention to this finding on the follow-up pancreatic CT/MRI in 2-3 months. Colonic diverticulosis, without evidence of acute diverticulitis. Small fat containing inguinal hernias. One or more dose reduction techniques were used (e.g., Automated exposure control, adjustment of the mA and/or kV according to patient size, use of iterative reconstruction technique). Reading Location: [facility] Treatment and Re-Evaluation :: Patient was ordered a soapsuds enema. Patient was advised of his findings. Care of the patient will be turned over to the oncoming physician pending enema. Update 1006: Patient's had minimal benefit from the enema but he is unable to retain the fluid. I would recommend another dose of magnesium citrate and continued MiraLAX. He can try further enemas at home. Discharge Plan Triage Chief Complaint: Constipation ED Provider: Hussein Prieto Dx/Rx/DC Orders Clinical Impression: Abdominal pain, Constipation Instructions: ED Constipation (Adult) Prescriptions: New polyethylene glycol 3350 [Miralax] 17 gram/dose powder 17 g PO BID PRN (Reason: constipation) Qty: 238 0RF No Action brimonidine 0.2 % drops 1 drp ophthalmic (eye) BID levothyroxine 100 mcg tablet 100 mcg PO QDAY docusate sodium 100 mg capsule 100 mg PO QDAY fluticasone propionate 50 mcg/actuation spray,suspension 2 spray intranasal DAILY amlodipine 10 mg tablet 5 mg PO QHS Qty: 90 3RF amiodarone 200 mg tablet 100 mg PO DAILY Qty: 90 3RF latanoprost 1 DROP bottle 1 drp EACH EYE UD Patient Comments: DIRECTED multivitamin Tablet 1 tab PO DAILY magnesium oxide 400 mg magnesium capsule 400 mg PO BID Qty: 180 3RF warfarin 5 mg tablet 5 mg PO .COMPLEX Qty: 180 3RF Protocol: Dose Management Condition: Tuesday Dose/Route: 5 mg Instruction: 1 x 5 mg tablet Condition: Tuesday Dose/Route: 7.5 mg Instruction: 1.5 x 5 mg tablets Condition: Tuesday Dose/Route: 5 mg Instruction: 1 x 5 mg tablet Condition: Tuesday Dose/Route: 5 mg Instruction: 1 x 5 mg tablet Condition: Dose/Route: 5 mg Instruction: 1 x 5 mg tablet Condition: Tuesday Dose/Route: 5 mg Instruction: 1 x 5 mg tablet Condition: Tuesday Dose/Route: 5 mg Instruction: 1 x 5 mg tablet Protocol Text: Adjustment Start Date: Tuesday09/10/24 INR Value: 2.1 INR Date: 08/31/24 Recheck Date: 09/17/24 Rx Instructions: 5 mg orally 1.5 tablets (7.5 mg) every Tuesday and 1 tablet (5mg) all other days of the week;or as directed- please give extra tablets for dose changes. ezetimibe 10 mg tablet 10 mg PO DAILY Qty: 90 3RF furosemide 40 mg tablet 40 mg PO DAILY Qty: 90 3RF Primary Care Provider: Malini Downs Referrals: Malini Downs MD [Primary Care Provider] - 5-7 Days Print Language: Mongolian Disposition Disposition: Home, Self Care
--- NOTE | 2024-09-14 06:38 | CT_ITS ---
PROCEDURE: CT of the abdomen/pelvis with IV contrast. REASON FOR EXAM: Abdominal pain. No bowel movement for 10 days. TECHNIQUE: After the administration of iodinated IV contrast, contiguous axial CT images were obtained through the abdomen/pelvis. COMPARISON: None. FINDINGS: Proximal femurs are intact. Mild degenerative changes in the hip joints. Lower ribs intact. Heart is not enlarged. No sizable pericardial effusion. Moderate coronary artery calcifications. Minimal scarring or subsegmental atelectasis in the lower lungs. Patchy wall thickening of the stomach may be due to lack of distention versus peristalsis. No calcified gallstones or abnormal dilation of the biliary tree. The portal vein is patent. The liver, left adrenal glands, and spleen are unremarkable. There is mild atrophy of the pancreatic parenchyma. There is a 2.5 cm area of nodularity of the distal pancreatic tail. This appears to be isodense to the remainder of the pancreatic parenchyma. No peripancreatic inflammatory changes. 2.8 cm low in attenuation right adrenal nodule with mean Hounsfield unit value of 11, suggestive of a lipid rich adenoma. The kidneys are symmetric in size and enhancement. No solid renal mass or obstructive uropathy. 1 cm exophytic cyst superior medial left kidney image 96 of the coronal data set. The urinary bladder is not well distended. Small fat containing inguinal hernias, greatest on the left. No large abdominal wall defect. No abnormally dilated bowel segments or free intraperitoneal air. Moderate stool in the colon. There is moderate stool in the pelvis. There is mild circumferential wall thickening of the distal rectum, near the anorectal junction. Scattered colonic diverticula, without evidence of acute diverticulitis. No abdominal/pelvic adenopathy or ascites. Abdominal aorta normal in caliber with a moderate amount of atherosclerotic calcification. The appendix is not clearly demonstrated. No secondary findings of acute appendicitis. CT/Abdomen/Pelvis W IV Cont ONLY IMPRESSION: No definite acute findings in the abdomen /pelvis. Moderate stool in the colon, greatest in the rectum. There is mild circumferen tial wall thickening of the distal rectum. Although the appearance could be due to peristalsis, distal rectal mass is not entirely excluded. No evidence of bowel obstruction or perforation. Recommend correlation with digital rectal examinat ion and follow-up colonoscopy. There is a questionable 2.5 cm isodense nodule of the distal pancreatic tail, v ersus an island of normal pancreatic tissue. Suggest a follow-up dedicated pancreatic CT or MRI in 2-3 months. No acute appendicitis or obstructive uropathy. 1 cm exophytic cyst superior medial left kidney. No dedicated imaging follow-u p recommended. 2.8 cm low-attenuation right adrenal nodule with mean Hounsfield unit value of 11, suggestive of a lipid rich adenoma. Attention to this finding on the follow-up pancreatic CT/MRI in 2-3 months. Colonic diverticulosis, without evidence of acute diverticulitis. Small fat containing inguinal hernias. One or more dose reduction techniques were used (e.g., Automated exposure contr ol, adjustment of the mA and/or kV according to patient size, use of iterative reconstruction technique). Reading Location: [facility]
[2024-09-14 06:52] LABS: Absolute Lymphocyte Count 0.67 X10^3/uL (0.83-4.51); Absolute Neutrophil Count 6.9 X10^3/uL (2.0-7.7); Basophil# 0.03 X10^3/uL; Basophil% 0.3 % (0-1); Eosinophil# 0.05 X10^3/uL; Eosinophils% 0.6 % (0-5); Hematocrit 41.2 % (40-54); Hemoglobin 13.4 g/dL (13.0-16.5); Lymphocyte # 0.67 X10^3/ul (0.83-4.51); Lymphocyte % 7.4 % (19-41); Mean Corp Hgb Conc 32.5 g/dL (32-36); Mean Corpuscular Hgb 28.9 pg (27.0-32.0); Mean Platelet Vol. 11.2 fl (6.2-12.0); Monocyte# 1.39 X10^3/uL; Monocyte% 15.3 % (0-10); NRBC Flagged by Analyzer 0 % (0-5); Neutrophil # 6.91 X10^3/uL (2.7-7.7); Platelet Count 228 K/mm3 (150-450); RBC Distribution Width CV 14.2 % (11.6-14.6); RBC Distribution Width SD 45.2 fl (35.1-43.9); Red Blood Count 4.63 M/mm3 (4.6-6.2); White Blood Count 9.1 K/mm3 (4.4-11.0)
[2024-09-14] MEDS: 0.9% Normal Saline (1000mL) 1,000 ML 999 ML IV (06:57)
[2024-09-14] MEDS: Ondansetron 4 MG/2 ML Vial IV (06:57)
[2024-09-14 07:07] LABS: Bacteria 0 SEEN /hpf (None Seen); Squamous Epithelial Cells - UA 0 SEEN /hpf (0-5)
[2024-09-14 07:09] LABS: Color, Urine Yellow (Yellow); Glucose, Dipstick Normal (Normal); Ketone-Dipstick 15 mg/dl (Negative); Leukocyte Esterase-Dipstick Negative /ul (Negative); Nitrite-Dipstick Negative (Negative); Occult Blood-Urine 50 /ul (Negative); Protein-Dipstick 30 mg/dl (Negative); Specific Gravity, Urine 1.015 (1.002-1.030); Urine Bilirubin Dipstick Negative (Negative); Urine Clarity Clear (Clear); Urine Urobilinogen 1 mg/dl (Normal)
[2024-09-14 07:20] LABS: Anion Gap 5 (5-15); BUN 18 mg/dL (7-18); BUN/Creat Ratio 12.9 RATIO (10-20); Calcium,Total 9.4 mg/dL (8.5-10.1); Chloride 102 mmol/L (98-107); EST Glomerular Filtration Rate 52 mL/min (>60); Est Glom Filt Rate - Afr Amer 63 mL/min (>60); Estimated Creatinine Clearance 65.48 ml/min; Glucose 118 mg/dL (74-106); Potassium 3.3 mmol/L (3.5-5.1); Sodium Level 138 mmol/L (136-145)
[2024-09-14 08:10] VITALS: BP 148/92; PULSE 88; RESP 16; O2SAT 98
[2024-09-14 08:13] LABS: Red Blood Cells-Urine 0-5 SEEN /hpf (0-5); White Blood Cells 0-5 SEEN /hpf (0-5)
[2024-09-14 08:14] LABS: Fine Granular Cast- Urine 0-5 SEEN /lpf (0-5); Hyaline Cast 5-10 SEEN /lpf (0-5); Mucous, Urine 1+ /hpf (<or=2+)
[2024-09-14 10:00] VITALS: BP 150/94; PULSE 88; RESP 18; O2SAT 99
== END 2024-09-14 10:20 | disposition home or self-care (01) ==
PROVIDERS: Emergency Provider Emergency Medicine; PCP Internal Medicine; Visit Provider Emergency Medicine
DX: R10.9 Unspecified abdominal pain (principal); I48.0 Paroxysmal atrial fibrillation; I10 Essential (primary) hypertension; K59.00 Constipation, unspecified; Z87.891 Personal history of nicotine dependence; E78.5 Hyperlipidemia, unspecified; Z79.01 Long term (current) use of anticoagulants; N28.1 Cyst of kidney, acquired; Z23 Encounter for immunization
CPT/HCPCS: 74177; 80048; 81001; 85025; 90471; 96361; 96374; 99284; Q9967; A4216; J2405

== ENCOUNTER → 2025-02-20 | Outpatient (CLI) | payer MEDICARE, SELFPAY ==
--- NOTE | 2025-02-20 16:53 | CT_ITS ---
PROCEDURE: CTA CHEST W/WO CONTRAST 02/20/2025 REASON FOR EXAM: EVALUATE REPAIR HISTORY History of ascending aorta repair. TECHNIQUE: CTA CHEST W/WO CONTRAST Multiplanar Sagittal and Coronal images were obtained. 3D post processing was performed CONTRAST: Isovue 370 VOLUME: 75 mL One or more dose reduction techniques were used (e.g., Automated exposure control, adjustment of the mA and/or kV according to patient size, use of iterative reconstruction technique). RADIATION DOSE SUMMARY: CTDlvol: 18.6 mGy DLP: 855.90 mGycm COMPARISON: Prior study dated July 01, 2023. FINDINGS: Hardware: None Lymph nodes: No suspicious lymph nodes are seen. Heart: The heart is nonenlarged. Coronary artery calcification. Thoracic Aorta: The patient is status post aneurysmal repair of the ascending thoracic aorta. This is stable. No evidence of leak. No recurrence of the aneurysmal dilatation. Pulmonary Vessels: No evidence of pulmonary embolism. Lungs and Airways: Stable elevation of the left hemidiaphragm with the scarring in the anterior aspect of the left lower lobe. Pleura: No pleural effusion. 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 Bones: Degenerative changes of the thoracic spine. CT/CTA Chest W/WO Contrast IMPRESSION: Stable examination following repair of the ascending thoracic aortic aneurysm. Reading Location: [id number]
== END | disposition home or self-care (01) ==
LOC: CT 16:52
PROVIDERS: PCP Internal Medicine; Referring Provider Nurse Practitioner Family; Visit Provider Nurse Practitioner Family
DX: I71.20 Thoracic aortic aneurysm, without rupture, unspecified (principal); Z95.828 Presence of other vascular implants and grafts
CPT/HCPCS: 71275; Q9967

== ENCOUNTER → 2025-02-27 | Outpatient (CLI) | payer MEDICARE, SELFPAY ==
--- NOTE | 2025-02-27 13:50 | ECHOCS_ITS ---
Reason For Study Reason For Study: Evaluate EF Procedure This was a 2D Doppler, Color Flow transthoracic echocardiogram. The study was technically difficult. Contrast injection was performed. Exam performed in department. Left Ventricle Normal LV size. Mild concentric left ventricular hypertrophy. The left ventricular ejection fraction is 60 %. No regional wall motion abnormalities noted. Right Ventricle Normal RV size. Normal systolic function. Atria The left atrium is severely enlarged. The right atrium is moderately enlarged. Mitral Valve Normal mitral valve. Tricuspid Valve Normal tricuspid valve. Mild (1+) tricuspid valve insufficiency. Pulmonary artery systolic pressure is 34 mmHg. Aortic Valve Trisinus/trileaflet aortic valve. Moderate focal aortic valve calcification. Great Vessels Mildly dilated aortic root. The pulmonary artery is normal size. Inferior vena cava collapse with respiration. Pericardium/Pleural No pericardial effusion. Medication 22 gauge I.V. with prn adaptor inserted into right arm. Diluted definity 1ml given slow IV push to enhance endocardial definition. MMode/2D Measurements & Calculations LVIDd: 5.3 cm IVSd: 1.3 cm Ao root diam: 4.1 cm LVIDs: 4.1 cm LVPWd: 1.4 cm RVDd: 4.3 cm FS: 22.7 % LAV(MOD-bp): 122.2 ml LVAd ap4: 47.9 cm2 SV(MOD-sp4): 120.4 ml LAV(MOD-bp) Indexed: 46.8 ml/m2 LVLd ap4: 9.3 cm SI(MOD-sp4): 46.1 ml/m2 LAV(MOD-sp2): 117.9 ml EDV(MOD-sp4): 199.9 ml LAV(MOD-sp4): 114.5 ml EDV(sp4-el): 208.7 ml LVAs ap4: 28.6 cm2 LVLs ap4: 8.3 cm ESV(MOD-sp4): 79.5 ml ESV(sp4-el): 83.6 ml EF(MOD-sp4): 60.2 % EF(sp4-el): 60.0 % SV(sp4-el): 125.2 ml LA A4 area: 32.4 cm2 LA dimension(2D): 5.5 cm RA A4 area: 24.6 cm2 Doppler Measurements & Calculations MV E max negrita: 105.5 cm/sec MV V2 max: 131.4 cm/sec Ao V2 max: 124.5 cm/sec MV max P.9 mmHg Ao max P.2 mmHg MV V2 mean: 70.3 cm/sec Ao V2 mean: 84.0 cm/sec MV mean P.4 mmHg Ao mean P.4 mmHg MV V2 VTI: 30.5 cm Ao V2 VTI: 26.6 cm AV (velocity ratio): 0.67 LV V1 max: 87.6 cm/sec PA V2 max: 105.8 cm/sec TR max negrita: 265.2 cm/sec LV V1 max P.1 mmHg TR max P.1 mmHg LV V1 mean P.3 mmHg LV V1 mean: 52.2 cm/sec LV V1 VTI: 17.8 cm ECHO/Echo Complete W/ Contrast Interpretation Summary Normal LV size. Mild concentric left ventricular hypertrophy. The left ventricular ejection fraction is 60 %. The left atrium is severely enlarged. Mildly dilated aortic root. Contrast injection was performed. Ordering Physician: Montana Garcia Referring Physician: Montana Garcia Performed By: Brayden Holcomb RCS
== END | disposition home or self-care (01) ==
LOC: CVS 13:47
PROVIDERS: PCP Internal Medicine; Referring Provider Nurse Practitioner Family; Visit Provider Nurse Practitioner Family
DX: I48.19 Other persistent atrial fibrillation (principal)
CPT/HCPCS: 93306; Q9957; A4216; C8929